=== PATIENT | female | born 1945 | race African-American/Black ===

== ENCOUNTER 2017-02-27 11:57 | Emergency (ER) | payer MEDICARE, MEDICAID ==
[~2017-02-27] VITALS: Ht 157.5 cm; Wt 63.5 kg
[~2017-02-27 11:57] MED LIST: AMITIZA24 MCG ORAL; AVELOX400 MG ORAL; AZITHROMYC100 MG/5 M ORAL; BACTROBAN22 G1 TOPIC; BENTYL10 MG ORAL; BENZONATATE100 MG ORAL; COLACE100 MG ORAL; FLONASE ALLERG9.9 ML NS; GUAIFENESIN-CO118 M1 ORAL; HYDROCHLOROTHIA25 MG ORAL; LACTULOSE20 GM/301 ORAL; LEVAQUIN500 MG ORAL; MAALOX ADVANCE770 ML PO; METRONIDAZOLE500 MG ORAL; MIRALAX17 G2 ORAL; NEXIUM40 MG ORAL; NORVASC5 MG ORAL; OMEPRAZOLE20 M2 ORAL; OMEPRAZOLE20 MG PO; OMEPRAZOLE40 M1 ORAL; PERCOCET 5-3251 EACH PO; PRILOSEC20 MG PO; PRILOSEC40 MG ORAL; PROMETHAZINE-C118 M1 ORAL; PROMETHAZINE-D118 ML ORAL; ROBITUSSIN AC5 ML ORAL; ROBITUSSIN COU118 M4 PO; SUCRALFATE1 GM PO; TESSALON PERLE100 MG ORAL; ZANTAC150 MG ORAL; ZANTAC300 MG PO; ZESTRIL10 M1 ORAL
[2017-02-27 12:23] VITALS: BP 124/68
--- NOTE | 2017-02-27 12:41 | Emergency Room Report ---
History of Present Illness General Chief Complaint: Upper Respiratory Illness Source: Patient (Lise Manuel) Present Illness HPI 71-year-old female presents to the emergency department complaining of persistent dry cough times one week. Patient states she was started on lisinopril just over a week ago and the very next day she had dry cough with runny nose. Patient denies fevers, chills, mucus production. Denies swelling of the lips or tongue, denies rash. Patient denies recent travel or ill contacts. Patient is up-to-date with vaccinations. Patient also reports history of moderate reflux disease , and enlarged heart. Patient denies swelling of the lower extremities. Denies CP, Palpitations, LOC, AMS, dizziness , Changes in Vision, Sensation, paresthesias, or a sudden severe headache. (Lise Manuel) Allergies: Coded Allergies: Broccoli (Verified Allergy, Unknown, 04/05/16) IBUPROFEN (Verified Allergy, Unknown, 12/19/08) LACTOSE (Verified Allergy, Unknown, 12/10/15) Lactose intolerant MILK (Verified Allergy, Unknown, 08/15/11) ONION (Verified Allergy, Unknown, 04/05/16) ORANGE JUICE (Verified Allergy, Unknown, 04/05/16) TOMATO (Verified Allergy, Unknown, 04/05/16) Patient History Past Medical History: see triage record Past Surgical History: none Pertinent Family History: none Now: No Reviewed Nursing Documentation: PMH: Agreed, PSxH: Agreed (Lise Manuel) Nursing Documentation-PMH Past Medical History: No History, Except For Hx Hypertension: Yes Hx Pacemaker: No Hx Asthma: No Hx COPD: No Hx Diabetes: No Hx Cancer: No Hx Gastrointestinal Problems: Yes - gastritis, GERD, hiatal hernia Hx Dialysis: No Hx Neurological Problems: No Hx Cerebrovascular Accident: No Hx Seizures: No (Lise Manuel) Review of Systems All Other Systems: negative except mentioned in HPI (Lise Manuel) Physical Exam Vital Signs Date Time Temp Pulse Resp B/P (MAP) Pulse Ox O2 Delivery O2 Flow Rate FiO2 02/27/17 12:09 97.9 81 16 124/68 100 Room Air Sp02 EP Interpretation: reviewed, normal General Appearance: no apparent distress, alert, GCS 15, non-toxic Head: normocephalic, atraumatic Eyes: bilateral eye normal inspection, bilateral eye PERRL ENT: hearing grossly normal, normal pharynx, no angioedema, normal voice, other - no swelling of the lips or tongue Neck: full range of motion Respiratory: chest non-tender, lungs clear, normal breath sounds, no rhonchi, no respiratory distress, no wheezing, speaking full sentences Cardiovascular #1: regular rate, rhythm, no edema, normal capillary refill Musculoskeletal: back normal, gait/station normal, normal range of motion, non- tender Neurologic: alert, oriented x3, responsive, motor strength/tone normal, sensory intact, speech normal Psychiatric: judgement/insight normal, memory normal, mood/affect normal Skin: normal color, no rash, warm/dry, well hydrated (Lise Manuel P.A.) Medical Decision Making PA Attestation Dr. Gamez is my supervising Physician whom patient management has been discussed with. (Lise Manuel P.A.) Diagnostic Impression: Primary Impression: JOHNATHON-inhibitor cough Additional Impression: History of gastroesophageal reflux (GERD) ER Course 71-year-old female presents to the emergency department complaining of persistent dry cough times one week. Patient states she was started on lisinopril just over a week ago and the very next day she had dry cough with runny nose. Patient denies fevers, chills, mucus production. Denies swelling of the lips or tongue, denies rash. Patient denies recent travel or ill contacts. Patient is up-to-date with vaccinations. Patient also reports history of moderate reflux disease , and enlarged heart. Patient denies swelling of the lower extremities. Denies CP, Palpitations, LOC, AMS, dizziness , Changes in Vision, Sensation, paresthesias, or a sudden severe headache. ---Pt. was switched to ARB yesterday. Ddx considered but are not limited to JOHNATHON-Cough, URI, pneumonia, PE, CHF, strep pharyngitis, meningitis just to name a few Vital signs: Pt. is afebrile, the remaining VS are WNL H&PE are most consistent with Johnathon-cough will do CXR. ORDERS: -CXR: No consolidation, effusion, pneumothorax or acute cardiopulmonary findings per soft read in ED by Dr. Gamez, her interpretation has been scribed by AMAURY Manuel. ED INTERVENTIONS: None required at this time. d/w pt. that her symptoms most likely were caused from Lisinopril. D/w pt. to follow up with here PCP Dr Jaramillo in 3 days. gave ED Return precautions for worsening or new symptoms. DISCHARGE: At this time pt. is stable for d/c to home. Will provide printed patient care instructions, and any necessary prescriptions. Care plan and follow up instructions have been discussed with the patient prior to discharge. (Lise Manuel) ER Course I agree with the X-Ray interpretation as noted by AMAURY. Electronically signed by Sophie Gamez MD (Sophie Gamez M.D.) Last Vital Signs Date Time Temp Pulse Resp B/P (MAP) Pulse Ox O2 Delivery O2 Flow Rate FiO2 02/27/17 12:23 97.9 81 16 124/68 100 Room Air (Lise Manuel) Disposition: HOME, SELF-CARE Condition: Stable Scripts Codeine/Promethazine Hcl* (PROMETHAZINE-CODEINE SYRUP*) 118 Ml Syrup 5 ML ORAL Q6H Y for For Cough, #118 ML 0 Refills Prov: Lise Manuel 02/27/17 Referrals: Silvino Calvillo MD (PCP) Patient Instructions: Cough, Adult Additional Instructions: Take medications as directed. Follow up with a Primary Care Provider in 3-5 days, even if your symptoms have resolved. YOU HAD A NORMAL CXR TODAY --Please review list of primary care clinics, if you do not already have a primary care provider Return sooner to ED if new symptoms occur, or current symptoms become worse. Do not drink alcohol, drive, or operate heavy machinery while taking Cough Syrup as this may cause drowsiness. - Please note that this Emergency Department Report was dictated using [employer] law clerk technology software, occasionally this can lead to erroneous entry secondary to interpretation by the dictation equipment. Lise Manuel Feb 27, 2017 12:41 Sophie Gamez M.D. Mar 03, 2017 06:51
[2017-02-27] MEDS ORDERED: PROMETHAZINE-C118 M1 ORAL (13:36)
[2017-02-27 13:45] VITALS: BP 126/68
[2017-02-27 13:47] VITALS: BP 126/68
--- NOTE | 2017-02-27 14:42 | Diagnostic Imaging Report ---
Indication: COUGH Technique: One view of the chest Comparison: none Findings: Atelectatic changes are seen at both lung bases. The heart is mildly enlarged. Patient's chin obscures a portion of the upper mediastinum. The lungs and pleural spaces are otherwise clear. Impression: Minimal bilateral basilar atelectasis No acute process otherwise
== END 2017-02-27 13:49 | disposition home or self-care (01) ==
LOC: EMR 12:24
DX: R05 Cough (principal); T50.995A Adverse effect of other drugs, medicaments and biological substances, initial encounter; K21.9 Gastro-esophageal reflux disease without esophagitis
CPT/HCPCS: 71010; 99283

== ENCOUNTER 2017-07-23 02:37 | Inpatient (IN) | payer MEDICARE, MEDICAID ==
[~2017-07-23] VITALS: Ht 157.5 cm; Wt 68.0 kg
[2017-07-23] VITALS (8 sets, daily range): BP systolic 112–162; BP diastolic 45–91
[2017-07-23] MEDS ORDERED: Dicyclomine HCl 10mg/5ml oral soln ORAL ONE (03:00)
[2017-07-23] MEDS ORDERED: Mylanta II UD 30ml ORAL ONE (03:00)
[2017-07-23] MEDS ORDERED: Lidocaine 2% Visc 15ml soln ORAL ONE (03:00)
[2017-07-23 04:02] LABS: BASOPHILS % (AUTO) 1.7 % (0.0-2.0); EOSINOPHILS % (AUTO) 2.7 % (0.0-3.0); HEMATOCRIT 46.4 % (37.0-47.0); HEMOGLOBIN 15.1 G/DL (12.0-16.0); LYMPHOCYTES % (AUTO) 24.1 % (20.0-45.0); MEAN CORPUSCULAR VOLUME 83 FL (80-99); MONOCYTES % (AUTO) 8.3 % (1.0-10.0); NEUTROPHILS % (AUTO) 63.3 % (45.0-75.0); PLATELET COUNT 223 K/UL (150-450); RED BLOOD COUNT 5.56 M/UL (4.20-5.40); WHITE BLOOD COUNT 5.3 K/UL (4.8-10.8)
[2017-07-23 04:19] LABS: ALANINE AMINOTRANSFERASE 29 U/L (12-78); ALBUMIN 3.6 G/DL (3.4-5.0); ALBUMIN/GLOBULIN RATIO 0.8 (1.0-2.7); ALKALINE PHOSPHATASE 149 U/L (46-116); ANION GAP 4 mmol/L (5-15); ASPARTATE AMINO TRANSFERASE 69 U/L (15-37); BILIRUBIN,TOTAL 0.9 MG/DL (0.2-1.0); BLOOD UREA NITROGEN 13 mg/dL (7-18); CALCIUM 9.6 MG/DL (8.5-10.1); CARBON DIOXIDE 30 MMOL/L (21-32); CHLORIDE 102 MMOL/L (98-107); CKMB 1.3 NG/ML (0.0-3.6); CREATINE KINASE 311 U/L (26-308); CREATININE 0.7 MG/DL (0.55-1.30); SODIUM 135 MMOL/L (136-145)
[2017-07-23 04:21] LABS: POTASSIUM 6.1 MMOL/L (3.5-5.1)
[2017-07-23] MEDS ORDERED: Morphine Sulfate 4mg/ml Inj IVP ONE (04:45)
--- NOTE | 2017-07-23 05:16 | Emergency Room Report ---
History of Present Illness General Chief Complaint: Chest Pain Source: Patient Present Illness HPI Patient presents with complaints of chest pain Midsternal Patient had component of epigastric discomfort with reflux into the chest as well Patient reports that her antacid medication has been changed to a generic type and she has had problems since then This pain actually started about 2 hours prior to arrival Denies any vomiting or diarrhea pain as heaviness Denies any change with position or exertion Allergies: Coded Allergies: Broccoli (Verified Allergy, Unknown, 04/05/16) IBUPROFEN (Verified Allergy, Unknown, 12/19/08) LACTOSE (Verified Allergy, Unknown, 12/10/15) Lactose intolerant MILK (Verified Allergy, Unknown, 08/15/11) ONION (Verified Allergy, Unknown, 04/05/16) ORANGE JUICE (Verified Allergy, Unknown, 04/05/16) TOMATO (Verified Allergy, Unknown, 04/05/16) Patient History Past Medical History: see triage record Pertinent Family History: none Reviewed Nursing Documentation: PMH: Agreed, PSxH: Agreed Nursing Documentation-PMH Hx Hypertension: Yes Hx Pacemaker: No Hx Asthma: No Hx COPD: No Hx Diabetes: No Hx Cancer: No Hx Gastrointestinal Problems: Yes - gastritis, GERD, hiatal hernia Hx Dialysis: No Hx Neurological Problems: No Hx Cerebrovascular Accident: No Hx Seizures: No Review of Systems All Other Systems: negative except mentioned in HPI Physical Exam Vital Signs Date Time Temp Pulse Resp B/P (MAP) Pulse Ox O2 Delivery O2 Flow Rate FiO2 07/23/17 02:39 97.5 98 16 118/79 95 Room Air 97.5 Sp02 EP Interpretation: reviewed, normal General Appearance: well appearing, no apparent distress Head: normocephalic, atraumatic Eyes: bilateral eye PERRL, bilateral eye EOMI ENT: hearing grossly normal, normal pharynx, TMs + canals normal, uvula midline Neck: full range of motion, supple, no meningismus, no bony tend Respiratory: lungs clear, normal breath sounds, no rhonchi, no respiratory distress, no retraction, no accessory muscle use Cardiovascular #1: normal peripheral pulses, regular rate, rhythm, no edema, no gallop, no JVD, no murmur Gastrointestinal: normal bowel sounds, non tender, soft, no mass, no organomegaly, non-distended, no guarding, no hernia, no pulsatile mass, no rebound Genitourinary: no CVA tenderness Musculoskeletal: normal inspection Neurologic: oriented x3, responsive, high lift mule operator III-XII nml as tested, motor strength/ tone normal, sensory intact Psychiatric: mood/affect normal Skin: normal color, no rash, warm/dry, palpation normal Lymphatic: normal inspection, no adenopathy Medical Decision Making Diagnostic Impression: Primary Impression: ACS (acute coronary syndrome) Additional Impression: GERD (gastroesophageal reflux disease) ER Course Patient is a fairly complex patient with multiple differential to consideration including but not limited to cardiac cardiopulmonary and vascular emergencies Patient's EKG and initial blood tests are appropriate Patient required further intervention for her pain At this time will be admitted for further care Labs Test 07/23/17 03:35 White Blood Count 5.3 K/UL (4.8-10.8) Red Blood Count 5.56 M/UL (4.20-5.40) Hemoglobin 15.1 G/DL (12.0-16.0) Hematocrit 46.4 % (37.0-47.0) Mean Corpuscular Volume 83 FL (80-99) Mean Corpuscular Hemoglobin 27.2 PG (27.0-31.0) Mean Corpuscular Hemoglobin Concent 32.6 G/DL (32.0-36.0) Red Cell Distribution Width 16.0 % (11.6-14.8) Platelet Count 223 K/UL (150-450) Mean Platelet Volume 9.9 FL (6.5-10.1) Neutrophils (%) (Auto) 63.3 % (45.0-75.0) Lymphocytes (%) (Auto) 24.1 % (20.0-45.0) Monocytes (%) (Auto) 8.3 % (1.0-10.0) Eosinophils (%) (Auto) 2.7 % (0.0-3.0) Basophils (%) (Auto) 1.7 % (0.0-2.0) Sodium Level 135 MMOL/L (136-145) Potassium Level 6.1 MMOL/L (3.5-5.1) Chloride Level 102 MMOL/L (98-107) Carbon Dioxide Level 30 MMOL/L (21-32) Anion Gap 4 mmol/L (5-15) Blood Urea Nitrogen 13 mg/dL (7-18) Creatinine 0.7 MG/DL (0.55-1.30) Estimat Glomerular Filtration Rate mL/min (>60) Glucose Level 100 MG/DL (74-106) Calcium Level 9.6 MG/DL (8.5-10.1) Total Bilirubin 0.9 MG/DL (0.2-1.0) Aspartate Amino Transf (AST/SGOT) 69 U/L (15-37) Alanine Aminotransferase (ALT/SGPT) 29 U/L (12-78) Alkaline Phosphatase 149 U/L (46-116) Total Creatine Kinase 311 U/L (26-308) Creatine Kinase MB 1.3 NG/ML (0.0-3.6) Creatine Kinase MB Relative Index 0.4 Troponin I 0.000 ng/mL (0.000-0.056) Pro-B-Type Natriuretic Peptide 31 pg/mL (0-125) Total Protein 8.4 G/DL (6.4-8.2) Albumin 3.6 G/DL (3.4-5.0) Globulin 4.8 g/dL Albumin/Globulin Ratio 0.8 (1.0-2.7) Lipase 110 U/L (73-393) EKG Diagnostic Results Rate: normal Rhythm: NSR ST Segments: no acute changes Rhythm Strip Diag. Results EP Interpretation: yes Rate: 77 Rhythm: NSR, no PVC's, no ectopy Chest X-Ray Diagnostic Results Chest X-Ray Diagnostic Results : Chest X-Ray Ordered: Yes # of Views/Limited/Complete: 1 View Indication: Chest Pain EP Interpretation: Yes Interpretation: no consolidation, no effusion, no pneumothorax Impression: No acute disease Electronically Signed by: Bronwyn Justice DO Last Vital Signs Date Time Temp Pulse Resp B/P (MAP) Pulse Ox O2 Delivery O2 Flow Rate FiO2 07/23/17 05:00 97.6 94 15 141/91 99 Room Air Status: improved Disposition: ADMITTED INPATIENT Condition: Serious Referrals: Silvino Calvillo MD (PCP) BRONWYN JUSTICE D.O. Jul 23, 2017 05:15
--- NOTE | 2017-07-23 08:13 | Consultation ---
History of Present Illness General Date patient seen: Jul 23, 2017 Chief Complaint: Chest Pain Reason for Consultation: chest pain Present Illness HPI 72 year old female with hx of HTN, CAD presented to [place] ER with complaints of chest pain Patient had component of epigastric discomfort with reflux into the chest as well This pain actually started about 2 hours prior to arrival. Denies any vomiting or diarrhea pain as heaviness Denies any change with position or exertion. she is admitted to telemetry to rule out ACS. Allergies: Coded Allergies: Broccoli (Verified Allergy, Unknown, 04/05/16) IBUPROFEN (Verified Allergy, Unknown, 12/19/08) LACTOSE (Verified Allergy, Unknown, 12/10/15) Lactose intolerant MILK (Verified Allergy, Unknown, 08/15/11) ONION (Verified Allergy, Unknown, 04/05/16) ORANGE JUICE (Verified Allergy, Unknown, 04/05/16) TOMATO (Verified Allergy, Unknown, 04/05/16) Medication History Scheduled Esomeprazole Magnesium (Nexium), 40 MG ORAL DAILY, (Reported) Fluticasone Propionate (Flonase Allergy Relief), 9.9 ML NS DAILY Guaifenesin/Dextromethorphan (Robitussin Cough-Chest Dm Liq), 118 ML PO Q6HR Scheduled PRN Codeine/Promethazine Hcl* (Promethazine-Codeine Syrup*), 5 ML ORAL Q4H PRN for For Cough Codeine/Promethazine Hcl* (Promethazine-Codeine Syrup*), 5 ML ORAL Q6H PRN for For Cough Guaifenesin/Codeine Phos* (Robitussin Ac*), 1 TSP ORAL Q6H PRN for For Cough Patient History Healthcare decision maker Resuscitation status Full Code Advanced Directive on File Past Medical/Surgical History Past Medical/Surgical History: (1) GERD (gastroesophageal reflux disease) (2) Gastritis (3) GERD (gastroesophageal reflux disease) Review of Systems Cardiovascular: Reports: chest pain Gastrointestinal: Reports: abdominal pain, nausea, vomiting Physical Exam General Appearance: WD/WN, no apparent distress Lines, tubes and drains: peripheral HEENT: normocephalic, atraumatic Neck: non-tender, normal alignment Respiratory/Chest: chest wall non-tender, lungs clear Breasts: no masses Cardiovascular/Chest: normal peripheral pulses Abdomen: normal bowel sounds, non tender, soft Genitourinary/Rectal: normal genital exam, normal rectal exam Extremities: normal range of motion, normal inspection Skin Exam: normal pigmentation Neurologic: coater II-XII grossly normal Last 24 Hour Vital Signs Date Time Temp Pulse Resp B/P (MAP) Pulse Ox O2 Delivery O2 Flow Rate FiO2 07/23/17 05:00 97.6 94 15 141/91 99 Room Air 07/23/17 05:00 97.7 76 18 138/78 97 Room Air 97.7 07/23/17 04:45 97.6 94 15 141/91 99 Room Air 97.6 07/23/17 04:06 89 14 144/79 100 Room Air 07/23/17 03:44 97.5 98 17 162/83 100 Room Air 97.5 07/23/17 03:44 98 17 Room Air 07/23/17 02:39 97.5 98 16 118/79 95 Room Air 97.5 Laboratory Tests Test 07/23/17 03:35 White Blood Count 5.3 K/UL (4.8-10.8) Red Blood Count 5.56 M/UL (4.20-5.40) H Hemoglobin 15.1 G/DL (12.0-16.0) Hematocrit 46.4 % (37.0-47.0) Mean Corpuscular Volume 83 FL (80-99) Mean Corpuscular Hemoglobin 27.2 PG (27.0-31.0) Mean Corpuscular Hemoglobin Concent 32.6 G/DL (32.0-36.0) Red Cell Distribution Width 16.0 % (11.6-14.8) H Platelet Count 223 K/UL (150-450) Mean Platelet Volume 9.9 FL (6.5-10.1) Neutrophils (%) (Auto) 63.3 % (45.0-75.0) Lymphocytes (%) (Auto) 24.1 % (20.0-45.0) Monocytes (%) (Auto) 8.3 % (1.0-10.0) Eosinophils (%) (Auto) 2.7 % (0.0-3.0) Basophils (%) (Auto) 1.7 % (0.0-2.0) Sodium Level 135 MMOL/L (136-145) L Potassium Level 6.1 MMOL/L (3.5-5.1) *H Chloride Level 102 MMOL/L (98-107) Carbon Dioxide Level 30 MMOL/L (21-32) Anion Gap 4 mmol/L (5-15) L Blood Urea Nitrogen 13 mg/dL (7-18) Creatinine 0.7 MG/DL (0.55-1.30) Estimat Glomerular Filtration Rate mL/min (>60) Glucose Level 100 MG/DL (74-106) Calcium Level 9.6 MG/DL (8.5-10.1) Total Bilirubin 0.9 MG/DL (0.2-1.0) Aspartate Amino Transf (AST/SGOT) 69 U/L (15-37) H Alanine Aminotransferase (ALT/SGPT) 29 U/L (12-78) Alkaline Phosphatase 149 U/L (46-116) H Total Creatine Kinase 311 U/L (26-308) H Creatine Kinase MB 1.3 NG/ML (0.0-3.6) Creatine Kinase MB Relative Index 0.4 Troponin I 0.000 ng/mL (0.000-0.056) Pro-B-Type Natriuretic Peptide 31 pg/mL (0-125) Total Protein 8.4 G/DL (6.4-8.2) H Albumin 3.6 G/DL (3.4-5.0) Globulin 4.8 g/dL Albumin/Globulin Ratio 0.8 (1.0-2.7) L Lipase 110 U/L (73-393) Height (Feet): 5 Height (Inches): 2.00 Weight (Pounds): 150 Assessment/Plan Problem List: (1) ACS (acute coronary syndrome) ICD Codes: I20.0 - Unstable angina SNOMED: 757073168 (2) Abdominal pain ICD Codes: R10.9 - Abdominal pain SNOMED: 86055869 Assessment/Plan low probability for PE, serial ekg, torponin, echo cardio to see GI evaluation trial of carafate dvt prophylaxis. LEILANI NICOLE Jul 23, 2017 08:13
[2017-07-23] MEDS ORDERED: Miralax 17gm pkt ORAL ONE (08:15)
[2017-07-23] MEDS ORDERED: Morphine Sulfate 4mg/ml Inj IVP PRN (08:15)
[2017-07-23] MEDS ORDERED: Norco 5mg/325mg tab ORAL PRN (08:15)
[2017-07-23 08:20] LABS: BASOPHILS % (AUTO) 1.1 % (0.0-2.0); EOSINOPHILS % (AUTO) 1.5 % (0.0-3.0); HEMATOCRIT 44.7 % (37.0-47.0); HEMOGLOBIN 14.5 G/DL (12.0-16.0); LYMPHOCYTES % (AUTO) 24.7 % (20.0-45.0); MEAN CORPUSCULAR VOLUME 84 FL (80-99); MONOCYTES % (AUTO) 9.7 % (1.0-10.0); PLATELET COUNT 234 K/UL (150-450); RED BLOOD COUNT 5.34 M/UL (4.20-5.40); RED CELL DISTRIBUTION WIDTH 16.3 % (11.6-14.8)
[2017-07-23 08:31] LABS: ANION GAP 5 mmol/L (5-15); BLOOD UREA NITROGEN 13 mg/dL (7-18); CALCIUM 9.8 MG/DL (8.5-10.1); CARBON DIOXIDE 29 MMOL/L (21-32); CHLORIDE 103 MMOL/L (98-107); CREATININE 0.7 MG/DL (0.55-1.30); POTASSIUM 4.1 MMOL/L (3.5-5.1); SODIUM 137 MMOL/L (136-145)
[2017-07-23 08:51] LABS: ALANINE AMINOTRANSFERASE 23 U/L (12-78); ALBUMIN 3.8 G/DL (3.4-5.0); ALKALINE PHOSPHATASE 146 U/L (46-116); ASPARTATE AMINO TRANSFERASE 18 U/L (15-37); BILIRUBIN,TOTAL 0.6 MG/DL (0.2-1.0)
[2017-07-23] MEDS: Pantoprazole Inj IVP SCH ×2 (08:53→21:51)
[2017-07-23] MEDS: Sucralfate 1gm tab ORAL SCH ×4 (08:53→21:51)
--- NOTE | 2017-07-23 09:58 | Diagnostic Imaging Report ---
Indication: Chest pain Comparison: 02/27/2017 A single view chest radiograph was obtained. Findings: No definite infiltrate or pulmonary vascular congestion identified. The heart is enlarged. The aorta is mildly enlarged consistent with atherosclerotic vascular disease. The bones are osteopenic. Impression: No acute disease
--- NOTE | 2017-07-23 10:49 | GI Initial Consult Note ---
Juli Oliveros N.P. 07/23/17 1049: History of Present Illness General Date patient seen: Jul 23, 2017 Time patient seen: 10:41 Reason for Hospitalization: Chest Pain Referring physician: DESTINEY PEDRAZA Reason for Consultation: GERD Present Illness HPI Patient presents with complaints of chest pain Midsternal Patient had component of epigastric discomfort with reflux into the chest as well Patient reports that her antacid medication has been changed to a generic type and she has had problems since then This pain actually started about 2 hours prior to arrival Denies any vomiting or diarrhea pain as heaviness Denies any change with position or exertion GI consulted for epigastric pain. Pt seen, awake A&Ox4 NAD with no active s/sx of N/V/D. C/o of lower abdominal pain that radiates to her epigastric region. History of EGD/colonoscopy x 5 years ago, states she has gastritis, hiatal hernia and GERD. Per patient, she needs Nexium Brand name to relieve her GERD symptoms. She was prescribed the generic of Nexium, Esomeprazole, but denies any relief. State she's tried other medications with minimal relief as well. Presents today with elevated alkaline phosphatase. Home Meds Reported Medications Pantoprazole* (PANTOPRAZOLE*) 40 Mg Tablet., 40 MG ORAL DAILY, TAB 07/29/17 Discontinued Reported Medications Esomeprazole Magnesium (NEXIUM) 40 Mg Capsule.dr, 40 MG ORAL DAILY, CAP 05/28/14 Discontinued Scripts Codeine/Promethazine Hcl* (PROMETHAZINE-CODEINE SYRUP*) 118 Ml Syrup, 5 ML ORAL Q6H Y for For Cough, #118 ML 0 Refills Prov:Lise Manuel P.A. 02/27/17 Codeine/Promethazine Hcl* (PROMETHAZINE-CODEINE SYRUP*) 118 Ml Syrup, 5 ML ORAL Q4H Y for For Cough, #118 ML 0 Refills Prov:TERZIANDAVID P.A. 03/30/16 Fluticasone Propionate (Flonase Allergy Relief) 9.9 Ml [place].susp, 9.9 ML NS DAILY, #10 ML Prov:TERZIAN,DAVID P.A. 03/30/16 Guaifenesin/Dextromethorphan (Robitussin Cough-Chest Dm Liq) 118 Ml Liquid, 118 ML PO Q6HR, #118 ML Prov:Lise Manuel 03/16/16 Guaifenesin/Codeine Phos* (ROBITUSSIN AC*) 118 Ml Liquid, 1 TSP ORAL Q6H Y for For Cough, #118 ML 0 Refills Prov:Sebas Alcocer 03/16/16 Med list reviewed/reconciled: Yes Allergies: Coded Allergies: Broccoli (Verified Allergy, Unknown, 04/05/16) IBUPROFEN (Verified Allergy, Unknown, 12/19/08) LACTOSE (Verified Allergy, Unknown, 12/10/15) Lactose intolerant MILK (Verified Allergy, Unknown, 08/15/11) ONION (Verified Allergy, Unknown, 04/05/16) ORANGE JUICE (Verified Allergy, Unknown, 04/05/16) TOMATO (Verified Allergy, Unknown, 04/05/16) Patient History History Provided By: Patient, Medical Record PMH Narrative Past Medical History: see triage record Pertinent Family History: none Reviewed Nursing Documentation: PMH: Agreed, PSxH: Agreed Nursing Documentation-PMH Hx Hypertension: Yes Hx Pacemaker: No Hx Asthma: No Hx COPD: No Hx Diabetes: No Hx Cancer: No Hx Gastrointestinal Problems: Yes - gastritis, GERD, hiatal hernia Hx Dialysis: No Hx Neurological Problems: No Hx Cerebrovascular Accident: No Hx Seizures: No Social History: Denies: smoking, alcohol use, drug use, other Review of Systems All Other Systems: negative except mentioned in HPI Physical Exam Vital Signs Date Time Temp Pulse Resp B/P (MAP) Pulse Ox O2 Delivery O2 Flow Rate FiO2 07/23/17 02:39 97.5 98 16 118/79 95 Room Air 97.5 Sp02 EP Interpretation: reviewed, normal Labs Laboratory Tests Test 07/23/17 03:35 07/23/17 06:34 White Blood Count 5.3 K/UL (4.8-10.8) 5.0 K/UL (4.8-10.8) Red Blood Count 5.56 M/UL (4.20-5.40) H 5.34 M/UL (4.20-5.40) Hemoglobin 15.1 G/DL (12.0-16.0) 14.5 G/DL (12.0-16.0) Hematocrit 46.4 % (37.0-47.0) 44.7 % (37.0-47.0) Mean Corpuscular Volume 83 FL (80-99) 84 FL (80-99) Mean Corpuscular Hemoglobin 27.2 PG (27.0-31.0) 27.1 PG (27.0-31.0) Mean Corpuscular Hemoglobin Concent 32.6 G/DL (32.0-36.0) 32.4 G/DL (32.0-36.0) Red Cell Distribution Width 16.0 % (11.6-14.8) H 16.3 % (11.6-14.8) H Platelet Count 223 K/UL (150-450) 234 K/UL (150-450) Mean Platelet Volume 9.9 FL (6.5-10.1) 8.9 FL (6.5-10.1) Neutrophils (%) (Auto) 63.3 % (45.0-75.0) 63.0 % (45.0-75.0) Lymphocytes (%) (Auto) 24.1 % (20.0-45.0) 24.7 % (20.0-45.0) Monocytes (%) (Auto) 8.3 % (1.0-10.0) 9.7 % (1.0-10.0) Eosinophils (%) (Auto) 2.7 % (0.0-3.0) 1.5 % (0.0-3.0) Basophils (%) (Auto) 1.7 % (0.0-2.0) 1.1 % (0.0-2.0) Sodium Level 135 MMOL/L (136-145) L 137 MMOL/L (136-145) Potassium Level 6.1 MMOL/L (3.5-5.1) *H 4.1 MMOL/L (3.5-5.1) Chloride Level 102 MMOL/L (98-107) 103 MMOL/L (98-107) Carbon Dioxide Level 30 MMOL/L (21-32) 29 MMOL/L (21-32) Anion Gap 4 mmol/L (5-15) L 5 mmol/L (5-15) Blood Urea Nitrogen 13 mg/dL (7-18) 13 mg/dL (7-18) Creatinine 0.7 MG/DL (0.55-1.30) 0.7 MG/DL (0.55-1.30) Estimat Glomerular Filtration Rate mL/min (>60) mL/min (>60) Glucose Level 100 MG/DL (74-106) 102 MG/DL (74-106) Calcium Level 9.6 MG/DL (8.5-10.1) 9.8 MG/DL (8.5-10.1) Total Bilirubin 0.9 MG/DL (0.2-1.0) 0.6 MG/DL (0.2-1.0) Aspartate Amino Transf (AST/SGOT) 69 U/L (15-37) H 18 U/L (15-37) Alanine Aminotransferase (ALT/SGPT) 29 U/L (12-78) 23 U/L (12-78) Alkaline Phosphatase 149 U/L (46-116) H 146 U/L (46-116) H Total Creatine Kinase 311 U/L (26-308) H Creatine Kinase MB 1.3 NG/ML (0.0-3.6) Creatine Kinase MB Relative Index 0.4 Troponin I 0.000 ng/mL (0.000-0.056) 0.000 ng/mL (0.000-0.056) Pro-B-Type Natriuretic Peptide 31 pg/mL (0-125) Total Protein 8.4 G/DL (6.4-8.2) H 7.6 G/DL (6.4-8.2) Albumin 3.6 G/DL (3.4-5.0) 3.8 G/DL (3.4-5.0) Globulin 4.8 g/dL 3.8 g/dL Albumin/Globulin Ratio 0.8 (1.0-2.7) L 1.0 (1.0-2.7) Lipase 110 U/L (73-393) General Appearance: well appearing, no apparent distress, alert Head: normocephalic EENT: PERRL/EOMI, normal ENT inspection Neck: supple Respiratory: normal breath sounds, no respiratory distress Cardiovascular: normal rate Gastrointestinal: normal inspection, non tender, soft, normal bowel sounds, non -distended Rectal: deferred Genitourinary: no CVA tenderness Musculoskeletal: normal inspection, back normal Neurologic: normal inspection, alert, oriented x3, responsive Psychiatric: normal inspection, judgement/insight normal, memory normal Skin: normal inspection, normal color, no rash, warm/dry, palpation normal, well hydrated Lymphatic: normal inspection, no adenopathy Current Medications Current Medications Medications (Trade) Dose Ordered Sig/Radha Route PRN Reason Start Time Stop Time Status Last Admin Dose Admin Acetaminophen/ Hydrocodone Bitart ([place] 5/325) 1 tab Q6H PRN ORAL Moderate Pain (Pain Scale 4-6) 07/23/17 08:15 07/30/17 08:14 Morphine Sulfate (Morphine Sulfate) 4 mg Q4H PRN IVP Severe Pain (Pain Scale 7-10) 07/23/17 08:15 07/30/17 08:14 07/23/17 08:54 Ondansetron HCl (Zofran) 4 mg Q4HR PRN IVP Nausea & Vomiting 07/23/17 08:15 08/22/17 08:14 Pantoprazole (Protonix) 40 mg EVERY 12 HOURS IVP 07/23/17 09:00 08/22/17 08:59 07/23/17 08:53 Sucralfate (Carafate) 1 gm FOUR TIMES A DAY ORAL 07/23/17 09:00 08/22/17 08:59 07/23/17 08:53 GI: Plan Problems: (1) GERD (gastroesophageal reflux disease) (2) Gastritis (3) Hiatal hernia Plan refused EGD at this time symptomatic treatment at this time FLD, advance as tolerated ppi BID carafate monitor LFTs fu labs outpatient GI procedures Discussed with Dr. Zheng. Thank you for this patient referral, we will follow. NATTY ZHENG 07/29/17 3235: History of Present Illness General Reason for Hospitalization: Chest Pain Present Illness Home Meds Reported Medications Pantoprazole* (PANTOPRAZOLE*) 40 Mg Tablet., 40 MG ORAL DAILY, TAB 07/29/17 Discontinued Reported Medications Esomeprazole Magnesium (NEXIUM) 40 Mg Capsule., 40 MG ORAL DAILY, CAP 05/28/14 Discontinued Scripts Codeine/Promethazine Hcl* (PROMETHAZINE-CODEINE SYRUP*) 118 Ml Syrup, 5 ML ORAL Q6H Y for For Cough, #118 ML 0 Refills Prov:Lise Manuel 02/27/17 Codeine/Promethazine Hcl* (PROMETHAZINE-CODEINE SYRUP*) 118 Ml Syrup, 5 ML ORAL Q4H Y for For Cough, #118 ML 0 Refills Prov:TERZIAN,DAVID P.A. 03/30/16 Fluticasone Propionate (Flonase Allergy Relief) 9.9 Ml [place].susp, 9.9 ML NS DAILY, #10 ML Prov:TERZIAN,DAVID P.A. 03/30/16 Guaifenesin/Dextromethorphan (Robitussin Cough-Chest Dm Liq) 118 Ml Liquid, 118 ML PO Q6HR, #118 ML Prov:ManuelLise P.A. 03/16/16 Guaifenesin/Codeine Phos* (ROBITUSSIN AC*) 118 Ml Liquid, 1 TSP ORAL Q6H Y for For Cough, #118 ML 0 Refills Prov:Sebas Alccoer 03/16/16 Allergies: Coded Allergies: Broccoli (Verified Allergy, Unknown, 04/05/16) IBUPROFEN (Verified Allergy, Unknown, 12/19/08) LACTOSE (Verified Allergy, Unknown, 12/10/15) Lactose intolerant MILK (Verified Allergy, Unknown, 08/15/11) ONION (Verified Allergy, Unknown, 04/05/16) ORANGE JUICE (Verified Allergy, Unknown, 04/05/16) TOMATO (Verified Allergy, Unknown, 04/05/16) GI: Plan Plan The patient was seen and examined at bedside and all new and available data was reviewed in the patients chart. I agree with the above findings, impression and plan. (Patient seen earlier today. Signature stamp does not reflect patient encounter time.). - MD Arlin Rodriguez,[facility] Vinayak N.P. Jul 23, 2017 10:49 NATTY ZHENG Jul 29, 2017 13:35
--- NOTE | 2017-07-23 17:15 | Consultation ---
DATE OF CONSULTATION: 07/23/2017 CARDIOLOGY CONSULTATION CONSULTING PHYSICIAN: Gianluca Del Real M.D. REFERRING PHYSICIAN: Silvino Calvillo M.D. REASON FOR CONSULTATION: Management of chest pain. HISTORY OF PRESENT ILLNESS: The patient is a very unfortunate 72-year-old, black [place]ian who presented to the hospital mainly with epigastric pain with radiation to the chest cavity. She describes the pain as reflux into the chest. She states that ever since her antacid medication was changed to a generic type, she has had problem with her stomach. The pain started about two hours prior to her arrival to this facility. It was not associated with any shortness of breath, nausea, vomiting, or diaphoresis. Initial blood pressure was 118/79 mmHg and heart rate was 98. A 12-lead electrocardiogram in the emergency department revealed sinus rhythm with no ST and T-wave abnormalities. Her first troponin I level was also within normal limits. She was admitted to telemetry. I was asked by Dr. Ling on behalf of Dr. Calvillo to see this patient in Cardiology consultation. PAST MEDICAL HISTORY: 1. Hypertension. 2. History of gastroesophageal reflux disease. 3. History of hiatal hernia. 4. History of gastritis. 5. History of small bowel obstruction in the past. 6. History of obesity. 7. 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 8. History of low back pain. ALLERGIES: Milk, ibuprofen, broccoli, lactose, onion, orange, and tomato. MEDICATIONS: In the outpatient setting includes codeine and promethazine 5 mL q.4 h. p.r.n. for cough, Nexium 40 mg daily, Flonase 9.9 mL nasal spray daily, Robitussin one teaspoon oral q.6 h. p.r.n. cough and guaifenesin, and dextromethorphan 118 mL p.o. q.6 h. SOCIAL HISTORY: Lives at home. Denies any tobacco, alcohol, or illicit drug use. FAMILY HISTORY: Mother had diabetes and relatives have also diabetes mellitus. No premature coronary artery disease in the first-degree relatives. REVIEW OF SYSTEMS: HEENT: Denies any headache, diplopia, or blurred vision. CONSTITUTIONAL: Denies any fever, chills, night sweats, or weight loss. CARDIOVASCULAR: Chest pain as mentioned above, mainly burning type of pain in the midsternal, radiating from the stomach. No associated shortness of breath, PND, orthopnea, or leg swelling. PULMONARY: Denies any cough, hemoptysis, or wheezing. GASTROINTESTINAL: Some pain in the epigastric area with reflux. Denies any diarrhea, constipation, or GI bleed. GENITOURINARY: Denies any hematuria, dysuria, or incontinence. NEUROLOGY: Denies any motor dysfunction, sensory deficit, or altered speech. PHYSICAL EXAMINATION: GENERAL: The patient is a very pleasant, 72-year-old female, in no apparent respiratory distress. VITAL SIGNS: Blood pressure at time of arrival to the hospital was 118/79, respirations of 16, pulse of 98, O2 saturation of 95% on room air, and temperature 97.5 degrees Fahrenheit. HEENT: Atraumatic and normocephalic. Anicteric. Pupils are equal, round, and reactive to light and accommodation. Extraocular muscles intact. NECK: JVP less than 5 cm. No carotid bruit. Carotid upstrokes 2+ bilaterally. CARDIOVASCULAR: Normal S1 and S2. Regular rate and rhythm. No murmurs, gallops, or rubs. PMI is at fourth intercostal space at the midclavicular line. LUNGS: Clear to auscultation bilaterally. ABDOMEN: Some epigastric tenderness, otherwise, soft. No rebound. Positive bowel sounds. EXTREMITIES: No evidence of edema, clubbing, or cyanosis. LABORATORY AND DIAGNOSTIC DATA: WBC is 5.3, hemoglobin of 15.1, hematocrit of 46.4, and platelet count 223. Sodium is 135, potassium 6.1, chloride 102, bicarbonate 30, BUN of 13, creatinine 0.7, glucose 100, calcium 9.6. CK-MB was 1.3 and troponin I is 0.0. ProBNP was 31. Chest x-ray, no acute cardiopulmonary disease according to the report. ASSESSMENT AND PLAN: The patient is a very unfortunate 72-year-old female, seen in Cardiology consultation for evaluation of chest pain at the request of Dr. Ling on behalf of Dr. Calvillo. 1. Most likely noncardiac chest pain. This pain is mainly in the epigastric pain and possibly due to her usual gastritis. The quality and the intensity is not typical for unstable angina. At this time, no further cardiac workup is required. 2. History of hypertension. Blood pressure seemingly is within normal limits, on no blood pressure medication. The patient does not have any outside medication and does not use any medication in the outpatient setting. Apparently, this is diet controlled. 3. History of hiatal hernia. 4. History of gastroesophageal reflux disease. I would like to thank Dr. Ling for the courtesy of this consultation. Gianluca Del Real M.D. DR: TULIO JOB#: [id number] CC:
--- NOTE | 2017-07-23 17:30 | History and Physical Report ---
DATE OF ADMISSION: 07/23/2017 CHIEF COMPLAINT: The patient is a 72-year-old female who presents with chief complaint of chest pain. HISTORY OF PRESENT ILLNESS: It began approximately one week ago. The patient states she started vomiting while on the city bus. The patient has been drinking . The patient states yesterday she began to experience lower abdominal pain. The patient had more nausea and vomiting. The patient also felt dizzy. The patient states the pain began to radiate to her chest. The patient presented to [facility] [place] emergency room. The patient was admitted for chest pain to rule out acute coronary syndrome. PAST MEDICAL HISTORY: Significant for 1. Gastritis. 2. Paget's disease of left femur. 3. Osteoarthritis of the lumbar spine. 4. History of gastritis. PAST SURGICAL HISTORY: Significant for total abdominal hysterectomy. CURRENT MEDICATIONS: 1. Esomeprazole 40 mg p.o. daily. 2. Flonase nasal spray one spray twice daily. ALLERGIES: 1. Ibuprofen. 2. Milk. 3. Lactose. SOCIAL HISTORY: The patient is and lives alone. The patient denies tobacco or alcohol use. REVIEW OF SYSTEMS: CONSTITUTIONAL: The patient denies weight loss or weight gain. The patient denies fevers or chills. HEENT: The patient denies ear or throat pain. The patient denies headache. CARDIOVASCULAR: The patient complains of chest pain as above. The patient denies palpitations. CHEST: The patient denies wheeze or shortness of breath. ABDOMEN: The patient complains of bilateral lower quadrant pain as above. The patient denies diarrhea. The patient denies constipation. The patient complains of nausea and vomiting as above. NEUROMUSCULAR: The patient denies seizures or generalized weakness. GENITOURINARY: The patient denies dysuria or increased frequency of urination. PHYSICAL EXAMINATION: GENERAL: The patient is well-developed and well-nourished female, in no apparent distress. VITAL SIGNS: Temperature 97.6 degrees, respirations 16, pulse 94, and blood pressure 141/91. HEENT: Eyes, pupils are equal and responsive to light and accommodation. Extraocular movements are intact. NECK: Supple without lymphadenopathy. CHEST: Lungs are clear to auscultation bilaterally without wheezes or rales. CARDIOVASCULAR: Regular rhythm and rate. S1 and S2 are normal without murmurs, rubs, or gallops. ABDOMEN: Soft, nontender, and nondistended. Positive bowel sounds. No evidence of hepatosplenomegaly. Currently, no rebound or guarding noted. EXTREMITIES: Negative for clubbing, cyanosis, or edema. RECTAL/GENITAL: Refused. NEUROLOGIC: Cranial nerves II through XII are grossly intact without focal deficits. Motor strength is 5/5 bilaterally. Deep tendon reflexes are 2+ plantar. LABORATORY AND DIAGNOSTIC DATA: WBC 5.2, hemoglobin 15.1, hematocrit 46.4, and platelets 223,000. Sodium 135, potassium elevated at 6.1, chloride 102, CO2, 30, BUN 13, creatinine 0.7 and glucose 100. Liver function tests mildly elevated with alkaline phosphatase of 149 and AST of 69. Troponin was zero. ASSESSMENT: This is a 72-year-old female 1. Chest pain. 2. Nausea with vomiting. 3. Gastritis. 4. Paget's disease of left femur. 5. Osteoarthritis lumbar spine. TREATMENT: 1. Chest pain. A Cardiology consultation has been obtained with Dr. Winters. Initial troponin level was negative. We will follow recommendations of Cardiology. Chest pain may be secondary to gastritis. 2. Nausea with vomiting. Gastroenterology consultation has been obtained with Dr. Patrick Zheng. 3. Gastritis. The patient states esomeprazole is not working. The patient is requesting brand name Nexium. The patient may require endoscopy. We will follow recommendations of Gastroenterology. 4. Paget's disease of left femur. 5. Osteoarthritis of lumbar spine. Angus Brooks M.D. DR: ALYSSA JOB#: [id number] CC:
[2017-07-24] VITALS: BP 105/53
[2017-07-24 04:00] VITALS: BP 115/59
[2017-07-24 08:00] VITALS: BP 125/44
[2017-07-24] MEDS: Sucralfate 1gm tab ORAL SCH ×2 (09:22→13:21)
[2017-07-24] MEDS: Pantoprazole Inj IVP SCH (09:22)
--- NOTE | 2017-07-24 11:16 | GI Progress Note ---
Assessment/Plan Problems: (1) Gastritis (2) Abdominal pain ICD Codes: R10.9 - Abdominal pain SNOMED: 78161295 (3) Constipation ICD Codes: K59.00 - Constipation SNOMED: 45947358 (4) GERD (gastroesophageal reflux disease) ICD Codes: K21.9 - Gastro-esophageal reflux disease without esophagitis SNOMED: 510386623 (5) Hiatal hernia ICD Codes: K44.9 - Hiatal hernia SNOMED: 14221417 Status: stable Status Narrative Discussed with Dr. Zheng. Assessment/Plan refused EGD at this time dc planning symptomatic treatment at this time adv to regular diet today ppi BID, change to daily carafate monitor LFTs fu labs outpatient GI procedures Subjective Subjective feels better wants nexium brand name ready to go home Objective Last 24 Hour Vital Signs Date Time Temp Pulse Resp B/P (MAP) Pulse Ox O2 Delivery O2 Flow Rate FiO2 07/24/17 04:00 76 07/24/17 04:00 97.0 74 23 115/59 99 Room Air 97.0 07/24/17 00:00 62 07/24/17 00:00 97.0 68 20 105/53 99 Room Air 97.0 07/23/17 20:00 97.0 73 22 116/70 99 Room Air 97.0 07/23/17 20:00 62 07/23/17 16:00 96.9 72 19 112/45 99 Room Air 96.9 07/23/17 15:15 71 07/23/17 12:00 96.9 72 19 122/79 99 Room Air 96.9 07/23/17 11:42 73 Intake and Output 07/23/17 07/24/17 19:00 07:00 Intake Total 352 ml Balance 352 ml Intake Oral 352 ml # Voids 1 2 Height (Feet): 5 Height (Inches): 2.00 Weight (Pounds): 150 General Appearance: WD/WN, no apparent distress, alert Cardiovascular: normal rate Respiratory/Chest: normal breath sounds, no respiratory distress Abdominal Exam: normal bowel sounds, non tender, soft Extremities: normal range of motion, non-tender Juli Oliveros N.P. Jul 24, 2017 11:15
[2017-07-24 11:55] LABS: BASOPHILS % (AUTO) 1.4 % (0.0-2.0); EOSINOPHILS % (AUTO) 2.1 % (0.0-3.0); HEMATOCRIT 41.4 % (37.0-47.0); HEMOGLOBIN 13.7 G/DL (12.0-16.0); LYMPHOCYTES % (AUTO) 33.2 % (20.0-45.0); MEAN CORPUSCULAR VOLUME 84 FL (80-99); MONOCYTES % (AUTO) 8.9 % (1.0-10.0); NEUTROPHILS % (AUTO) 54.4 % (45.0-75.0); PLATELET COUNT 193 K/UL (150-450); RED BLOOD COUNT 4.92 M/UL (4.20-5.40); RED CELL DISTRIBUTION WIDTH 15.7 % (11.6-14.8); WHITE BLOOD COUNT 4.8 K/UL (4.8-10.8)
[2017-07-24 12:00] VITALS: BP 120/68
[2017-07-24 12:30] LABS: ALANINE AMINOTRANSFERASE 20 U/L (12-78); ALBUMIN 3.5 G/DL (3.4-5.0); ALBUMIN/GLOBULIN RATIO 0.9 (1.0-2.7); ALKALINE PHOSPHATASE 141 U/L (46-116); ANION GAP 5 mmol/L (5-15); ASPARTATE AMINO TRANSFERASE 19 U/L (15-37); BILIRUBIN,TOTAL 0.9 MG/DL (0.2-1.0); BLOOD UREA NITROGEN 10 mg/dL (7-18); CALCIUM 9.5 MG/DL (8.5-10.1); CARBON DIOXIDE 30 MMOL/L (21-32); CHLORIDE 104 MMOL/L (98-107); CREATININE 0.7 MG/DL (0.55-1.30); PHOSPHORUS 2.9 MG/DL (2.5-4.9); POTASSIUM 3.6 MMOL/L (3.5-5.1); SODIUM 139 MMOL/L (136-145)
--- NOTE | 2017-07-24 13:01 | Pulmonology Progress Note ---
Assessment/Plan Problems: (1) ACS (acute coronary syndrome) (2) Abdominal pain Assessment/Plan responded to Carafate and protonix PE ruled out no ACS dc home Subjective ROS Limited/Unobtainable: No Constitutional: Reports: no symptoms HEENT: Repors: no symptoms Respiratory: Reports: no symptoms Allergies: Coded Allergies: Broccoli (Verified Allergy, Unknown, 04/05/16) IBUPROFEN (Verified Allergy, Unknown, 12/19/08) LACTOSE (Verified Allergy, Unknown, 12/10/15) Lactose intolerant MILK (Verified Allergy, Unknown, 08/15/11) ONION (Verified Allergy, Unknown, 04/05/16) ORANGE JUICE (Verified Allergy, Unknown, 04/05/16) TOMATO (Verified Allergy, Unknown, 04/05/16) Objective Last 24 Hour Vital Signs Date Time Temp Pulse Resp B/P (MAP) Pulse Ox O2 Delivery O2 Flow Rate FiO2 07/24/17 08:00 64 07/24/17 08:00 96.5 56 16 125/44 98 Room Air 96.5 07/24/17 04:00 76 07/24/17 04:00 97.0 74 23 115/59 99 Room Air 97.0 07/24/17 00:00 62 07/24/17 00:00 97.0 68 20 105/53 99 Room Air 97.0 07/23/17 20:00 97.0 73 22 116/70 99 Room Air 97.0 07/23/17 20:00 62 07/23/17 16:00 96.9 72 19 112/45 99 Room Air 96.9 07/23/17 15:15 71 Intake and Output 07/23/17 07/24/17 19:00 07:00 Intake Total 352 ml Balance 352 ml Intake Oral 352 ml # Voids 1 2 Objective General Appearance: WD/WN Lines, tubes and drains: peripheral HEENT: normocephalic, atraumatic Neck: non-tender, normal alignment Respiratory/Chest: chest wall non-tender, lungs clear Cardiovascular/Chest: normal peripheral pulses, normal rate Abdomen: normal bowel sounds, non tender Genitourinary/Rectal: normal genital exam, normal rectal exam Extremities: normal range of motion, non-tender Skin Exam: normal pigmentation 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 Laboratory Tests 07/24/17 11:25: White Blood Count 4.8, Red Blood Count 4.92, Hemoglobin 13.7, Hematocrit 41.4, Mean Corpuscular Volume 84, Mean Corpuscular Hemoglobin 27.9, Mean Corpuscular Hemoglobin Concent 33.2, Red Cell Distribution Width 15.7H, Platelet Count 193, Mean Platelet Volume 8.0, Neutrophils (%) (Auto) 54.4, Lymphocytes (%) (Auto) 33.2, Monocytes (%) (Auto) 8.9, Eosinophils (%) (Auto) 2.1, Basophils (%) (Auto ) 1.4, Erythrocyte Sedimentation Rate [Pending], Sodium Level 139, Potassium Level 3.6, Chloride Level 104, Carbon Dioxide Level 30, Anion Gap 5, Blood Urea Nitrogen 10, Creatinine 0.7, Estimat Glomerular Filtration Rate , Glucose Level 81, Calcium Level 9.5, Phosphorus Level 2.9, Magnesium Level 2.1, Total Bilirubin 0.9, Aspartate Amino Transf (AST/SGOT) 19, Alanine Aminotransferase ( ALT/SGPT) 20, Alkaline Phosphatase 141H, Troponin I 0.000, Total Protein 7.3, Albumin 3.5, Globulin 3.8, Albumin/Globulin Ratio 0.9L Current Medications Medications (Trade) Dose Ordered Sig/Radha Route PRN Reason Start Time Stop Time Status Last Admin Dose Admin Acetaminophen/ Hydrocodone Bitart ([place] 5/325) 1 tab Q6H PRN ORAL Moderate Pain (Pain Scale 4-6) 07/23/17 08:15 07/30/17 08:14 Morphine Sulfate (Morphine Sulfate) 4 mg Q4H PRN IVP Severe Pain (Pain Scale 7-10) 07/23/17 08:15 07/30/17 08:14 07/23/17 08:54 Ondansetron HCl (Zofran) 4 mg Q4HR PRN IVP Nausea & Vomiting 07/23/17 08:15 08/22/17 08:14 Pantoprazole (Protonix) 40 mg DAILY IVP 07/25/17 09:00 08/22/17 08:59 Sucralfate (Carafate) 1 gm FOUR TIMES A DAY ORAL 07/23/17 09:00 08/22/17 08:59 07/24/17 09:22 LEILANI NICOLE Jul 24, 2017 13:01
--- NOTE | 2017-07-24 16:47 | Discharge Summary ---
Discharge Summary Hospital Course Date of Admission Jul 23, 2017 at 03:22 Date of Discharge Jul 24, 2017 at 15:15 Admitting Diagnosis Acute Coronary Syndrome HPI Holly Day is a 72 year old female who was admitted on Jul 23, 2017 at 03:22 for Chest Pain,Abdominal Pain,Nausea Hospital Course [id number] Discharge Discharge Disposition Patient was discharged to Home () Discharge Diagnoses: Lucila Robledo NP Jul 24, 2017 16:47
--- NOTE | 2017-07-25 03:30 | Discharge Summary 2 SIG ---
DATE OF ADMISSION: 07/23/2017 DATE OF DISCHARGE: 07/24/2017 ATTENDING PHYSICIAN: Silvino Calvillo M.D. CONSULTANTS: 1. Chano Ling M.D. 2. Patrick Zheng M.D. BRIEF HOSPITAL COURSE: The patient is a 72-year-old female, who presented to ED complaining of chest pain. Symptoms began approximately a week prior when the patient started vomiting while on the city bus. She also had been drinking. She experienced lower abdominal pain and had more nausea and vomiting and felt dizzy. She felt pain radiated to her chest. She presented to [facility] for further evaluation. She has medical history significant for gastritis, Paget's disease of the left femur, osteoarthritis of the lumbar spine, and history of gastritis. On evaluation at ED, initial troponin was negative. She had an EKG that showed normal sinus rhythm with no acute changes. Chest x-ray showed no acute disease. She was admitted to telemetry for evaluation of possible acute coronary syndrome. Cardiac troponins were monitored. The patient was seen by grain shipper. The patient's pain most likely noncardiac chest pain as pain was mostly epigastric and possibly due to gastritis. Quality and intensity not typical for unstable angina. She was given proton pump inhibitors and Carafate. She was given symptomatic treatment. Diet was advanced to regular diet. Symptoms responded to Carafate and Protonix. Cardiac troponins were negative. Due to rapid unexpected improvement in patients symptoms, she was eventually discharged home. FINAL DIAGNOSES: 1. Abdominal pain, possibly gastritis. 2. Noncardiac chest pain. 3. Hypertension. 4. Hiatal hernia. 5. Gastroesophageal reflux disease. 6. Constipation. 7. Paget's disease of the left femur. 8. Osteoarthritis of the lumbar spine. DISPOSITION: The patient was discharged home. DISCHARGE MEDICATIONS: Refer to medication list. DISCHARGE INSTRUCTIONS: Follow up as outpatient in a week. Chano Ling M.D. I have been assigned to dictate discharge summary on this account and I was not involved in the patient's management. Lucila Robledo N.P. DR: AGNES JOB#: [id number] CC: DASH
[2017-07-25] MEDS ORDERED: Pantoprazole Inj IVP SCH (09:00)
--- NOTE | 2017-07-29 10:22 | Cardiology Report ---
APPROVED REPORT EXAM: Two-dimensional and M-mode echocardiogram with Doppler and color Doppler. INDICATION Left ventricular function M-Mode DIMENSIONS IVSd1.3 (0.7-1.1cm)Left Atrium (MM)3.5 (1.6-4.0cm) LVDd3.1 (3.5-5.6cm)Aortic Root2.9 (2.0-3.7cm) PWd1.1 (0.7-1.1cm)Aortic Cusp Exc.1.5 (1.5-2.0cm) LVDs1.1 (2.5-4.0cm) PWs1.7 cm Hyperdynamic left ventricular chamber size, systolic function and wall motion with cavitiy obliteration Left ventricular ejection fraction estimated to be 70-75%. Mild left ventricular hypertrophy. No evidence of pericardial or pleural effusion. All other cardiac chamber sizes are within normal limits. Focal aortic valve sclerosis with adequate cusp excursion. Thickened mitral valve leaflets with normal excursion. Mild mitral annulus and aortic root calcification. Pulmonic valve is well visualized. Normal tricuspid valve structure. IVC is normal in size and collapsible with respiration. A color flow and spectral Doppler study was performed and revealed: Mild aortic regurgitation. No mitral regurgitation. Mitral diastolic velocities suggest reduced left ventricular relaxation c/w diastolic dysfunction grade 1. No tricuspid regurgitation.
--- NOTE | 2017-07-30 16:05 | Cardiology Report ---
APPROVED REPORT EKG Measurement Heart [id number] Normal sinus rhythm Possible Left atrial enlargement Borderline ECG
== END 2017-07-24 15:15 | disposition home or self-care (01) | DRG 392 ==
LOC: EMR 03:19 → 2E 03:22 → EDBEDREQ 03:35
DX: K29.70 Gastritis, unspecified, without bleeding (principal); I10 Essential (primary) hypertension; K21.9 Gastro-esophageal reflux disease without esophagitis; K44.9 Diaphragmatic hernia without obstruction or gangrene; M47.816 Spondylosis without myelopathy or radiculopathy, lumbar region; M88.852 Osteitis deformans of left thigh; R07.89 Other chest pain; K59.00 Constipation, unspecified
CPT/HCPCS: 36415; 71045; 80053; 82550; 82553; 83690; 83735; 83880; 84100; 84484; 85025; 85651; 93005; 93306; 99285

== ENCOUNTER 2017-07-29 09:42 | Outpatient (CLI) | payer MEDICARE, MEDICAID ==
[2017-07-29 09:48] VITALS: BP 154/84
[2017-07-29] MEDS ORDERED: PANTOPRAZOLE SO40 MG ORAL (09:59)
--- NOTE | 2017-07-30 13:04 | GI Progress Note ---
Assessment/Plan Problems: (1) GERD (gastroesophageal reflux disease) ICD Codes: K21.9 - Gastro-esophageal reflux disease without esophagitis SNOMED: 020121839 (2) Gastritis (3) Abdominal pain ICD Codes: R10.9 - Abdominal pain SNOMED: 06776111 Status: stable Status Narrative Seen with Dr. Zheng. Assessment/Plan cont protonix d/c carafate RTC prn Subjective Subjective GERD recent IP for CP Nexium no longer covered, changed to protonix daily refusing EGD last colon jan 2013 - due this year Objective T 98.1 BP 154/84 P 110 95 RA General Appearance: WD/WN, no apparent distress, alert Cardiovascular: normal rate Respiratory/Chest: normal breath sounds, no respiratory distress Abdominal Exam: normal bowel sounds, non tender, soft Extremities: normal range of motion, non-tender Juli Oliveros N.P. Jul 30, 2017 13:04
== END 2017-07-29 10:15 | disposition home or self-care (01) ==
LOC: PAN 09:42
DX: K21.9 Gastro-esophageal reflux disease without esophagitis (principal); K29.70 Gastritis, unspecified, without bleeding; R10.9 Unspecified abdominal pain
CPT/HCPCS: 99212

== ENCOUNTER 2017-08-06 10:51 | Emergency (ER) | payer MEDICARE, MEDICAID ==
[~2017-08-06] VITALS: Ht 157.5 cm; Wt 72.6 kg
[~2017-08-06 10:51] MED LIST changes: +PANTOPRAZOLE SO40 MG ORAL
[2017-08-06] MEDS ORDERED: Mylanta II UD 30ml ORAL ONE ×2 (11:15→13:15)
[2017-08-06] MEDS ORDERED: Lidocaine 2% Visc 15ml soln ORAL ONE ×2 (11:15→13:15)
[2017-08-06] MEDS ORDERED: Dicyclomine HCl 10mg/5ml oral soln ORAL ONE ×2 (11:15→13:15)
[2017-08-06] MEDS ORDERED: Esomeprazole sodium 40mg vial IVP ONE (11:15)
--- NOTE | 2017-08-06 11:20 | Emergency Room Report ---
History of Present Illness General Chief Complaint: Chest Pain Source: Patient Present Illness HPI 72-year-old female, history of gastritis, hiatal hernia, p/w epigastric abd pain for 3 weeks. Patient states pain started gradually , localized to epigastric area, non radiating, burning in nature, intermittent. No relieving or exacerbating factors. Admits to have this pain multiple times in the past. States that this feels like her gastritis pain. States that the reason he came back is because her insurance no longer covers Nexium which is the only thing that usually helps her Denies nvd. Denies fever, chills. She states she regularly follows up with her audio visual production specialist, and the last time was one week ago Allergies: Coded Allergies: Broccoli (Verified Allergy, Unknown, 04/05/16) IBUPROFEN (Verified Allergy, Unknown, 12/19/08) LACTOSE (Verified Allergy, Unknown, 12/10/15) Lactose intolerant MILK (Verified Allergy, Unknown, 08/15/11) ONION (Verified Allergy, Unknown, 04/05/16) ORANGE JUICE (Verified Allergy, Unknown, 04/05/16) TOMATO (Verified Allergy, Unknown, 04/05/16) Patient History Past Medical History: see triage record Past Surgical History: none Pertinent Family History: none Reviewed Nursing Documentation: PMH: Agreed, PSxH: Agreed Nursing Documentation-PMH Past Medical History: No History, Except For Hx Cardiac Problems: Yes Hx Hypertension: Yes Hx Pacemaker: No Hx Asthma: No Hx COPD: No Hx Diabetes: No Hx Cancer: No Hx Gastrointestinal Problems: Yes - gastritis, GERD, hiatal hernia Hx Dialysis: No Hx Neurological Problems: No Hx Cerebrovascular Accident: No Hx Seizures: No Review of Systems All Other Systems: negative except mentioned in HPI Physical Exam Vital Signs Date Time Temp Pulse Resp B/P (MAP) Pulse Ox O2 Delivery O2 Flow Rate FiO2 08/06/17 10:56 98.4 101 18 173/90 98 Room Air 98.4 Sp02 EP Interpretation: reviewed, normal General Appearance: alert, GCS 15, non-toxic, moderate distress Head: normocephalic, atraumatic Eyes: bilateral eye normal inspection, bilateral eye PERRL, bilateral eye EOMI ENT: normal ENT inspection, normal pharynx, normal voice, moist mucus membranes Neck: normal inspection, full range of motion, supple Respiratory: normal inspection, lungs clear, normal breath sounds, no respiratory distress, no retraction, no wheezing, speaking full sentences, chest symmetrical Cardiovascular #1: normal inspection, regular rate, rhythm, no edema, normal capillary refill Cardiovascular #2: 2+ radial (R), 2+ radial (L) Gastrointestinal: other - epigastric tendernss. soft abdomen. nontende elsewherre Musculoskeletal: normal inspection, back normal, normal range of motion, non- tender Neurologic: normal inspection, alert, oriented x3, responsive, motor strength/ tone normal, sensory intact, normal gait, speech normal Psychiatric: normal inspection, judgement/insight normal, memory normal Skin: normal inspection, normal color, no rash, warm/dry, well hydrated, normal turgor Medical Decision Making Diagnostic Impression: Primary Impression: Chronic epigastric pain ER Course 72-year-old female with epigastric abdominal pain Differential Diagnosis: Gastritis, gastroenteritis, cholecystitis, appendicitis, diverticulitis, cardiac , UTI/pyelo At this time abdomen is soft nontender except for epigastric region, not likely to have acute intra-abdominal surgical pathology, will hold CT for now. Plan: Basic labs, ua, ekg Nexium, maalox, pain control, IVF ER course: Patient has remained stable during ED stay. Pain improved. Patient difficult stick to obtain IV line, given by mouth medications, we do not carry Nexium by mouth Patient feels much better with the medications that she caught, states that she follow-up with her audio visual production specialist in one week Disposition: Patient is to be discharged to home. Patient is instructed to follow up with gastroentertology in 1 week Strict return precautions discussed with patient such as fever, chills, worsening/severe abdominal pain, nausea, vomiting, black or bloody stools, which may indicate severe illness. Patient verbalizes understanding and agrees with plan. Please note that this Emergency Department Report was dictated using [employer] ([employer])lithostripper technology software, occasionally this can lead to erroneous entry secondary to interpretation by the dictation equipment EKG Diagnostic Results EP Interpretation: Yes Rate: normal Rhythm: NSR ST Segments: No acute changes ASA given to patient: No Rhythm Strip EP Interpretation: Yes Rate: 100 Rhythm: NSR, no PVCs, no ectopy Laboratory Tests Test 08/06/17 12:10 White Blood Count 6.3 K/UL (4.8-10.8) Red Blood Count 5.21 M/UL (4.20-5.40) Hemoglobin 14.2 G/DL (12.0-16.0) Hematocrit 44.0 % (37.0-47.0) Mean Corpuscular Volume 84 FL (80-99) Mean Corpuscular Hemoglobin 27.3 PG (27.0-31.0) Mean Corpuscular Hemoglobin Concent 32.3 G/DL (32.0-36.0) Red Cell Distribution Width 15.0 % (11.6-14.8) H Platelet Count 223 K/UL (150-450) Mean Platelet Volume 7.7 FL (6.5-10.1) Neutrophils (%) (Auto) 76.8 % (45.0-75.0) H Lymphocytes (%) (Auto) 15.4 % (20.0-45.0) L Monocytes (%) (Auto) 6.3 % (1.0-10.0) Eosinophils (%) (Auto) 0.8 % (0.0-3.0) Basophils (%) (Auto) 0.8 % (0.0-2.0) Sodium Level 142 MMOL/L (136-145) Potassium Level 3.9 MMOL/L (3.5-5.1) Chloride Level 106 MMOL/L (98-107) Carbon Dioxide Level 30 MMOL/L (21-32) Anion Gap 6 mmol/L (5-15) Blood Urea Nitrogen 9 mg/dL (7-18) Creatinine 0.6 MG/DL (0.55-1.30) Estimate Glomerular Filtration Rate mL/min (>60) Glucose Level 92 MG/DL (74-106) Calcium Level 9.4 MG/DL (8.5-10.1) Total Bilirubin 0.5 MG/DL (0.2-1.0) Aspartate Amino Transferase (AST) 18 U/L (15-37) Alanine Aminotransferase (ALT) 20 U/L (12-78) Alkaline Phosphatase 141 U/L (46-116) H Troponin I 0.000 ng/mL (0.000-0.056) Pro-B-Type Natriuretic Peptide 49 pg/mL (0-125) Total Protein 7.4 G/DL (6.4-8.2) Albumin 3.6 G/DL (3.4-5.0) Globulin 3.8 g/dL Albumin/Globulin Ratio 0.9 (1.0-2.7) L Lipase 118 U/L (73-393) Last Vital Signs Date Time Temp Pulse Resp B/P (MAP) Pulse Ox O2 Delivery O2 Flow Rate FiO2 08/06/17 10:56 98.4 101 18 173/90 98 Room Air 98.4 Disposition: HOME, SELF-CARE Condition: Improved Referrals: Silvino Calvillo MD (PCP) Sophie Gamez M.D. Aug 06, 2017 11:19
[2017-08-06 12:25] VITALS: BP 156/82
[2017-08-06 12:33] LABS: BASOPHILS % (AUTO) 0.8 % (0.0-2.0); EOSINOPHILS % (AUTO) 0.8 % (0.0-3.0); HEMOGLOBIN 14.2 G/DL (12.0-16.0); LYMPHOCYTES % (AUTO) 15.4 % (20.0-45.0); MEAN CORPUSCULAR VOLUME 84 FL (80-99); MONOCYTES % (AUTO) 6.3 % (1.0-10.0); NEUTROPHILS % (AUTO) 76.8 % (45.0-75.0); PLATELET COUNT 223 K/UL (150-450); RED BLOOD COUNT 5.21 M/UL (4.20-5.40); WHITE BLOOD COUNT 6.3 K/UL (4.8-10.8)
[2017-08-06 12:48] LABS: ANION GAP 6 mmol/L (5-15); BLOOD UREA NITROGEN 9 mg/dL (7-18); CALCIUM 9.4 MG/DL (8.5-10.1); CARBON DIOXIDE 30 MMOL/L (21-32); CHLORIDE 106 MMOL/L (98-107); CREATININE 0.6 MG/DL (0.55-1.30); POTASSIUM 3.9 MMOL/L (3.5-5.1); SODIUM 142 MMOL/L (136-145)
[2017-08-06 12:59] LABS: ALANINE AMINOTRANSFERASE 20 U/L (12-78); ALBUMIN 3.6 G/DL (3.4-5.0); ALBUMIN/GLOBULIN RATIO 0.9 (1.0-2.7); ALKALINE PHOSPHATASE 141 U/L (46-116); ASPARTATE AMINO TRANSFERASE 18 U/L (15-37); BILIRUBIN,TOTAL 0.5 MG/DL (0.2-1.0)
[2017-08-06 13:19] VITALS: BP 137/79
--- NOTE | 2017-08-06 14:19 | Diagnostic Imaging Report ---
Indication: Reason For Exam: PAIN Technique: One view of the chest Comparison: Findings: Lungs and pleural spaces are clear. Heart size is normal. Aorta is somewhat tortuous and calcified. No significant interim change Impression: No acute process
== END 2017-08-06 13:40 | disposition home or self-care (01) ==
LOC: EMR 11:12
DX: R10.13 Epigastric pain (principal); I10 Essential (primary) hypertension; Z88.6 Allergy status to analgesic agent; Z91.011 Allergy to milk products; Z91.018 Allergy to other foods
CPT/HCPCS: 36415; 71045; 80053; 83690; 83880; 84484; 85025; 93005; 99283

== ENCOUNTER 2017-08-11 14:37 | Outpatient (CLI) | payer MEDICARE, MEDICAID ==
[2017-08-11 15:02] VITALS: BP 112/68
--- NOTE | 2017-08-11 16:11 | GI Progress Note ---
Assessment/Plan Problems: (1) ACS (acute coronary syndrome) ICD Codes: I20.0 - Unstable angina SNOMED: 976149443 (2) Gastritis (3) Chest pain ICD Codes: R07.9 - Chest pain, unspecified SNOMED: 43454695 (4) Abdominal pain ICD Codes: R10.9 - Abdominal pain SNOMED: 07284810 Status: stable Status Narrative Seen with Dr. Zheng. Assessment/Plan recent admit to [facility] c/o of CP/Abdominal Pain resume nexium Align RTC prn Subjective Subjective GERD >> nexium not covered, protonix does not work read an article and now dose not want to take meds because of side effects wants to go all natural recent admit to [facility] ER Objective Last 24 Hour Vital Signs Date Time Temp Pulse Resp B/P (MAP) Pulse Ox O2 Delivery O2 Flow Rate FiO2 08/11/17 15:02 97.3 86 16 112/68 98 97.3 General Appearance: WD/WN, no apparent distress, alert Cardiovascular: normal rate Respiratory/Chest: normal breath sounds, no respiratory distress Abdominal Exam: normal bowel sounds, non tender, soft Extremities: normal range of motion, non-tender Juli Oliveros N.P. Aug 11, 2017 16:11
== END 2017-08-11 15:12 | disposition home or self-care (01) ==
LOC: PAN 14:37
DX: I20.0 Unstable angina (principal); K29.70 Gastritis, unspecified, without bleeding; R07.9 Chest pain, unspecified; R10.9 Unspecified abdominal pain; K21.9 Gastro-esophageal reflux disease without esophagitis
CPT/HCPCS: 99213

== ENCOUNTER 2017-08-25 14:22 | Outpatient (CLI) | payer MEDICARE, MEDICAID ==
--- NOTE | 2017-08-25 15:30 | GI Progress Note ---
Assessment/Plan Problems: (1) GERD (gastroesophageal reflux disease) ICD Codes: K21.9 - Gastro-esophageal reflux disease without esophagitis SNOMED: 980535075 (2) Hiatal hernia ICD Codes: K44.9 - Hiatal hernia SNOMED: 02900877 (3) Gastritis Status: stable Status Narrative Seen with Dr. Zheng. Assessment/Plan continue Nexium 40 mg RTC prn Subjective Gastrointestinal/Abdominal: Reports: no symptoms Subjective Nexium brand name is only medication that relieves patients GERD Objective T 98.1 BP 134/74 P 103 94 RA General Appearance: WD/WN, no apparent distress, alert Cardiovascular: normal rate Respiratory/Chest: normal breath sounds, no respiratory distress Abdominal Exam: normal bowel sounds, non tender, soft Extremities: normal range of motion, non-tender Juli Oliveros N.P. Aug 25, 2017 15:30
== END 2017-08-25 14:55 | disposition home or self-care (01) ==
LOC: PAN 14:22
DX: K21.9 Gastro-esophageal reflux disease without esophagitis (principal); K44.9 Diaphragmatic hernia without obstruction or gangrene; K29.70 Gastritis, unspecified, without bleeding
CPT/HCPCS: 99211

== ENCOUNTER 2017-10-03 10:30 | Inpatient (IN) | payer MEDICARE, MEDICAID ==
[~2017-10-03] VITALS: Ht 157.5 cm; Wt 72.6 kg
[2017-10-03 11:11] LABS: BASOPHILS % (AUTO) 1.5 % (0.0-2.0); EOSINOPHILS % (AUTO) 1.8 % (0.0-3.0); HEMATOCRIT 43.9 % (37.0-47.0); HEMOGLOBIN 13.7 G/DL (12.0-16.0); MEAN CORPUSCULAR VOLUME 85 FL (80-99); MONOCYTES % (AUTO) 7.1 % (1.0-10.0); NEUTROPHILS % (AUTO) 66.6 % (45.0-75.0); PLATELET COUNT 207 K/UL (150-450); RED BLOOD COUNT 5.13 M/UL (4.20-5.40); RED CELL DISTRIBUTION WIDTH 14.7 % (11.6-14.8); WHITE BLOOD COUNT 4.9 K/UL (4.8-10.8)
[2017-10-03 11:13] LABS: BILIRUBIN, URINE NEGATIVE (NEGATIVE); COLOR,URINE PALE YELLOW; GLUCOSE, URINE (UA) NEGATIVE (NEGATIVE); KETONES,URINE NEGATIVE (NEGATIVE); LEUKOCYTE ESTERASE ,URINE 2+ (NEGATIVE); NITRITE,URINE NEGATIVE (NEGATIVE); PH,URINE 5 (4.5-8.0); PROTEIN,URINE NEGATIVE (NEGATIVE); UROBILINOGEN,URINE NORMAL MG/DL (0.0-1.0)
[2017-10-03] MEDS ORDERED: Mylanta II UD 30ml ORAL ONE (11:15)
[2017-10-03] MEDS ORDERED: Lidocaine 2% Visc 15ml soln ORAL ONE (11:15)
[2017-10-03] MEDS ORDERED: Isovue-300 100ml vial INJ PRN (11:15)
[2017-10-03 11:20] LABS: APPEARANCE,URINE SLIGHTLY CLOUDY
[2017-10-03 11:33] LABS: INR 0.9 (0.9-1.1)
[2017-10-03 11:53] LABS: ANION GAP 10 mmol/L (5-15); BLOOD UREA NITROGEN 18 mg/dL (7-18); CARBON DIOXIDE 27 MMOL/L (21-32); CHLORIDE 102 MMOL/L (98-107); CREATININE 0.7 MG/DL (0.55-1.30); POTASSIUM 4.3 MMOL/L (3.5-5.1); SODIUM 139 MMOL/L (136-145)
[2017-10-03 11:57] LABS: ALANINE AMINOTRANSFERASE 20 U/L (12-78); ALKALINE PHOSPHATASE 168 U/L (46-116); ASPARTATE AMINO TRANSFERASE 29 U/L (15-37); BILIRUBIN,TOTAL 0.6 MG/DL (0.2-1.0)
[2017-10-03 12:00] VITALS: BP 149/81
[2017-10-03] MEDS ORDERED: Morphine Sulfate 4mg/ml Inj IVP ONE (12:30)
--- NOTE | 2017-10-03 12:55 | Emergency Room Report ---
History of Present Illness General Chief Complaint: Abdominal Pain Source: Patient Present Illness HPI This patient has a history of severe gastritis and GERD. She states that she had diet indiscretion and ate at [employer] and has since developed an exacerbation of her gastritis. She describes severe epigastric pain with nausea. She states this is typical for her episodes. She states that normally she requires morphine for pain control. She denies fever or chills. She denies lower abdominal pain. She denies dysuria or hematuria. She denies neck pain or headache. She denies blurry vision. She has no other complaints. Allergies: Coded Allergies: Broccoli (Verified Allergy, Unknown, 04/05/16) IBUPROFEN (Verified Allergy, Unknown, 12/19/08) LACTOSE (Verified Allergy, Unknown, 12/10/15) Lactose intolerant MILK (Verified Allergy, Unknown, 08/15/11) ONION (Verified Allergy, Unknown, 04/05/16) ORANGE JUICE (Verified Allergy, Unknown, 04/05/16) TOMATO (Verified Allergy, Unknown, 04/05/16) Patient History Past Medical History: see triage record, HTN, GERD Social History: Denies: smoking, alcohol use, drug use Reviewed Nursing Documentation: PMH: Agreed; PSxH: Agreed Nursing Documentation-PMH Hx Cardiac Problems: Yes Hx Hypertension: Yes Hx Pacemaker: No Hx Asthma: No Hx COPD: No Hx Diabetes: No Hx Cancer: No Hx Gastrointestinal Problems: Yes - gastritis, GERD, hiatal hernia Hx Dialysis: No Hx Neurological Problems: No Hx Cerebrovascular Accident: No Hx Seizures: No Review of Systems All Other Systems: negative except mentioned in HPI Physical Exam Vital Signs Date Time Temp Pulse Resp B/P (MAP) Pulse Ox O2 Delivery O2 Flow Rate FiO2 10/03/17 10:33 97.7 96 20 139/82 96 Room Air 97.7 Sp02 EP Interpretation: reviewed, normal General Appearance: no apparent distress, alert, GCS 15, non-toxic Head: normocephalic, atraumatic Eyes: bilateral eye normal inspection, bilateral eye PERRL ENT: hearing grossly normal, normal pharynx, no angioedema, normal voice Neck: full range of motion, supple/symm/no masses Respiratory: chest non-tender, lungs clear, normal breath sounds, no respiratory distress, no retraction, no accessory muscle use, speaking full sentences Cardiovascular #1: regular rate, rhythm, no edema Gastrointestinal: normal bowel sounds, soft, non-distended, no guarding, no rebound, tenderness - epigastrium Rectal: deferred Musculoskeletal: back normal, gait/station normal, normal range of motion, non- tender Neurologic: alert, oriented x3, responsive, motor strength/tone normal, sensory intact, speech normal Psychiatric: judgement/insight normal, memory normal, mood/affect normal, no suicidal/homicidal ideation Skin: normal color, no rash, warm/dry, well hydrated Medical Decision Making Diagnostic Impression: Primary Impression: Gastritis Additional Impressions: Intractable pain Nausea & vomiting ER Course This patient presents with an episode of severe gastritis. She has persistent nausea and vomiting and intractable pain. She does have a history of this. She has undergone evaluation and workup extensively by gastroenterology. She has a known hiatal hernia. She was given IV Pepcid, GI cocktail multiple doses of morphine. She continues to have pain. She is admitted for intractable pain and vomiting. See medical record. No significant abnormal findings. EKG Diagnostic Results Rate: normal Rhythm: NSR ST Segments: no acute changes Rhythm Strip Diag. Results EP Interpretation: yes Rate: 80's Rhythm: NSR, no PVC's, no ectopy Last Vital Signs Date Time Temp Pulse Resp B/P (MAP) Pulse Ox O2 Delivery O2 Flow Rate FiO2 10/03/17 12:51 97.7 10/03/17 12:00 83 13 149/81 100 Room Air Disposition: ADMITTED INPATIENT Condition: Stable Referrals: Silvino Calvillo MD (PCP) DAMIAN RIOS D.O. October 03, 2017 12:55
[2017-10-03 13:57] VITALS: BP 138/87
[2017-10-03 14:00] VITALS: BP 136/69
[2017-10-03 14:35] VITALS: BP 137/75
[2017-10-03] MEDS ORDERED: Morphine Sulfate 4mg/ml Inj IV PRN ×2 (15:08)
[2017-10-03 16:00] VITALS: BP 121/70
[2017-10-03] MEDS: D5 1/2NS w/KCl 20mEq 1,000 ML IV SCH (16:00)
[2017-10-03 20:25] VITALS: BP 126/66
[2017-10-03] MEDS: Esomeprazole sodium 40mg vial IVP SCH ×2 (20:27→20:36)
--- NOTE | 2017-10-03 23:03 | History & Physical ---
History and Physical History & Physicial Silvino Calvillo MD October 03, 2017 23:03
[2017-10-04 00:05] VITALS: BP 105/61
[2017-10-04 04:37] VITALS: BP 110/60
[2017-10-04] MEDS: D5 1/2NS w/KCl 20mEq 1,000 ML IV SCH ×2 (05:02→18:30)
[2017-10-04 07:51] LABS: BASOPHILS % (AUTO) 0.4 % (0.0-2.0); EOSINOPHILS % (AUTO) 1.6 % (0.0-3.0); HEMATOCRIT 37.8 % (37.0-47.0); HEMOGLOBIN 12.3 G/DL (12.0-16.0); LYMPHOCYTES % (AUTO) 14.7 % (20.0-45.0); MEAN CORPUSCULAR VOLUME 85 FL (80-99); MONOCYTES % (AUTO) 8.1 % (1.0-10.0); NEUTROPHILS % (AUTO) 75.1 % (45.0-75.0); PLATELET COUNT 180 K/UL (150-450); RED BLOOD COUNT 4.42 M/UL (4.20-5.40); RED CELL DISTRIBUTION WIDTH 14.3 % (11.6-14.8); WHITE BLOOD COUNT 7.1 K/UL (4.8-10.8)
[2017-10-04 08:00] VITALS: BP 100/60
[2017-10-04 08:23] LABS: ALANINE AMINOTRANSFERASE 28 U/L (12-78); ALBUMIN 3.2 G/DL (3.4-5.0); ALKALINE PHOSPHATASE 135 U/L (46-116); ANION GAP 7 mmol/L (5-15); ASPARTATE AMINO TRANSFERASE 23 U/L (15-37); BILIRUBIN,TOTAL 1.2 MG/DL (0.2-1.0); BLOOD UREA NITROGEN 15 mg/dL (7-18); CARBON DIOXIDE 29 MMOL/L (21-32); CHLORIDE 105 MMOL/L (98-107); CREATININE 0.7 MG/DL (0.55-1.30); PHOSPHORUS 3.8 MG/DL (2.5-4.9); POTASSIUM 4.1 MMOL/L (3.5-5.1); SODIUM 141 MMOL/L (136-145)
[2017-10-04 08:30] LABS: BILIRUBIN,DIRECT 0.2 MG/DL (0.0-0.3)
[2017-10-04] MEDS ORDERED: Esomeprazole sodium 40mg vial IVP SCH (09:00)
[2017-10-04 12:00] VITALS: BP 124/71
[2017-10-04] MEDS: NEXIUM 40 MG ORAL SCH (12:06)
--- NOTE | 2017-10-04 12:14 | Consultation ---
History of Present Illness General Date patient seen: October 04, 2017 Time patient seen: 10:00 Chief Complaint: Abdominal Pain Referring physician: dr Calvillo Reason for Consultation: in hosp management, Present Illness HPI 72 years old female with past medical history significant for hypertension, gastritis, GERD, chronic epigastric pain, Paget disease left femur, presented to emergency department with complaint of abdominal pain. pain was described as crampy and colicky , causing significant discomfort Patient reported nausea and vomiting. No hematemesis. Patient reported episode started after eating out fish at restaurant . Patient felt it may be food poisoning. She denied diarrhea. She denied fever or chills. laboratory workup revealed no leukocytosis. vital signs showed no fever. Stable electrolytes LFT lipase troponin negative patient was given Pepcid and Zofran and analgesic for pain relied patient was admitted to Med Surg floor for further management Allergies: Coded Allergies: Broccoli (Verified Allergy, Unknown, 04/05/16) IBUPROFEN (Verified Allergy, Unknown, 12/19/08) LACTOSE (Verified Allergy, Unknown, 12/10/15) Lactose intolerant MILK (Verified Allergy, Unknown, 08/15/11) ONION (Verified Allergy, Unknown, 04/05/16) ORANGE JUICE (Verified Allergy, Unknown, 04/05/16) TOMATO (Verified Allergy, Unknown, 04/05/16) Medication History Scheduled Pantoprazole* (Pantoprazole*), 40 MG ORAL DAILY, (Reported) Patient History Healthcare decision maker Resuscitation status Full Code Advanced Directive on File Yes Past Medical/Surgical History Past Medical/Surgical History: (1) Partial small bowel obstruction (2) Paget disease of bone (3) Bronchitis (4) GERD (gastroesophageal reflux disease) (5) Gastritis (6) Chronic epigastric pain Review of Systems Constitutional: Reports: see HPI ENT: Reports: hearing loss - bilat hearing aid Respiratory: Reports: no symptoms Cardiovascular: Reports: no symptoms Gastrointestinal: Reports: see HPI Genitourinary: Reports: no symptoms Musculoskeletal: Reports: other - Paget s disease L femur Psychiatric: Reports: no symptoms Endocrine: Reports: no symptoms Physical Exam General Appearance: WD/WN, no apparent distress, alert Lines, tubes and drains: peripheral HEENT: normocephalic, atraumatic, anicteric, PERRL Neck: non-tender, supple Respiratory/Chest: chest wall non-tender, lungs clear, no respiratory distress , no accessory muscle use Cardiovascular/Chest: normal rate Abdomen: normal bowel sounds, non tender, soft Extremities: normal range of motion, non-tender Skin Exam: warm/dry Neurologic: no motor/sensory deficits, alert, oriented x 3, responsive Musculoskeletal: normal muscle bulk Last 24 Hour Vital Signs Date Time Temp Pulse Resp B/P (MAP) Pulse Ox O2 Delivery O2 Flow Rate FiO2 10/04/17 08:00 97.2 75 20 100/60 98 97.2 10/04/17 04:38 Room Air 10/04/17 04:37 98.0 82 18 110/60 97 98.0 10/04/17 00:05 97.0 71 19 105/61 96 97.0 10/04/17 00:05 Room Air 10/03/17 20:25 Room Air 10/03/17 20:25 97.7 87 17 126/66 95 97.7 10/03/17 16:00 97.6 84 20 121/70 98 97.6 10/03/17 16:00 97.6 84 20 121/70 98 Room Air 97.6 10/03/17 14:51 97.8 90 12 136/69 95 Room Air 97.8 10/03/17 14:35 97.8 85 18 137/75 98 Room Air 97.8 10/03/17 14:00 90 12 136/69 95 Room Air 10/03/17 13:57 97.8 78 18 138/87 99 Room Air 97.8 10/03/17 12:51 97.7 10/03/17 12:22 97.7 Intake and Output 10/03/17 10/04/17 19:00 07:00 Intake Total 325 ml 1380 ml Output Total 80 ml Balance 245 ml 1380 ml Intake Oral 480 ml IV Total 325 ml 900 ml Output Urine Total 80 ml # Voids 1 1 Laboratory Tests Test 10/04/17 06:47 White Blood Count 7.1 K/UL (4.8-10.8) Red Blood Count 4.42 M/UL (4.20-5.40) Hemoglobin 12.3 G/DL (12.0-16.0) Hematocrit 37.8 % (37.0-47.0) Mean Corpuscular Volume 85 FL (80-99) Mean Corpuscular Hemoglobin 27.8 PG (27.0-31.0) Mean Corpuscular Hemoglobin Concent 32.5 G/DL (32.0-36.0) Red Cell Distribution Width 14.3 % (11.6-14.8) Platelet Count 180 K/UL (150-450) Mean Platelet Volume 8.9 FL (6.5-10.1) Neutrophils (%) (Auto) 75.1 % (45.0-75.0) H Lymphocytes (%) (Auto) 14.7 % (20.0-45.0) L Monocytes (%) (Auto) 8.1 % (1.0-10.0) Eosinophils (%) (Auto) 1.6 % (0.0-3.0) Basophils (%) (Auto) 0.4 % (0.0-2.0) Erythrocyte Sedimentation Rate 15 MM/HR (0-30) Sodium Level 141 MMOL/L (136-145) Potassium Level 4.1 MMOL/L (3.5-5.1) Chloride Level 105 MMOL/L (98-107) Carbon Dioxide Level 29 MMOL/L (21-32) Anion Gap 7 mmol/L (5-15) Blood Urea Nitrogen 15 mg/dL (7-18) Creatinine 0.7 MG/DL (0.55-1.30) Estimat Glomerular Filtration Rate mL/min (>60) Glucose Level 92 MG/DL (74-106) Calcium Level 9.0 MG/DL (8.5-10.1) Phosphorus Level 3.8 MG/DL (2.5-4.9) Magnesium Level 2.3 MG/DL (1.8-2.4) Total Bilirubin 1.2 MG/DL (0.2-1.0) H Direct Bilirubin 0.2 MG/DL (0.0-0.3) Aspartate Amino Transf (AST/SGOT) 23 U/L (15-37) Alanine Aminotransferase (ALT/SGPT) 28 U/L (12-78) Alkaline Phosphatase 135 U/L (46-116) H C-Reactive Protein, Quantitative 4.8 mg/dL (0.00-0.90) H Total Protein 6.5 G/DL (6.4-8.2) Albumin 3.2 G/DL (3.4-5.0) L Globulin 3.3 g/dL Albumin/Globulin Ratio 1.0 (1.0-2.7) Amylase Level 75 U/L (25-115) Lipase 95 U/L (73-393) Height (Feet): 5 Height (Inches): 2.00 Weight (Pounds): 160 Medications Current Medications Medications (Trade) Dose Ordered Sig/Radha Route PRN Reason Start Time Stop Time Status Last Admin Dose Admin Acetaminophen (Tylenol) 650 mg Q6H PRN ORAL Mild Pain/Temp > 100.5 10/03/17 15:08 11/02/17 15:07 Dextrose/ Electrolytes 1,000 ml @ 75 mls/hr [id number] IV 10/03/17 16:00 11/02/17 15:59 10/04/17 05:02 Famotidine (Pepcid I.v.) 20 mg QHS IVP 10/03/17 21:00 11/02/17 20:59 10/03/17 20:26 Iopamidol (Isovue-300 100ml) 100 ml NOW PRN INJ Radiology Procedure 10/03/17 11:15 Morphine Sulfate (Morphine Sulfate) 2 mg Q4H PRN IV Moderate Pain (Pain Scale 4-6) 10/03/17 15:08 10/10/17 15:07 Morphine Sulfate (Morphine Sulfate) 4 mg Q4H PRN IV Severe Pain (Pain Scale 7-10) 10/03/17 15:08 10/10/17 15:07 10/03/17 15:47 Ondansetron HCl (Zofran) 4 mg Q6H PRN IV Nausea & Vomiting 10/03/17 15:08 11/02/17 15:07 Patient Own Medication (Patient's Own Med) 1 ea DAILY ORAL 10/04/17 13:00 11/03/17 12:59 Assessment/Plan Assessment/Plan ASSESSMENT Abdominal pain probable food poisoning versus gastroenteritis possible dehydration ( due to vomiting) Hypertension Gastritis GERD Chronic epigastric pain PLAN OF CARE MedSurg floor IV fluids Clear liquid diet and advanced as tolerated antiemetics as needed GI prophylaxis Pain management as needed , currently pain free Monitor blood pressure , currently stable Discharge soon case discussed and evaluated by supervising physician Sanjuana Ferreira NP October 04, 2017 12:14
--- NOTE | 2017-10-04 13:02 | History and Physical Report ---
DATE OF ADMISSION: 10/03/2017 CHIEF COMPLAINT: Abdominal pain, nausea, vomiting. HISTORY OF PRESENT ILLNESS: This is a 72-year-old, very delightful, female with past medical history for severe gastritis as well as hiatal hernia, history of Paget's disease of the bone, who presented to the hospital complaining about abdominal pain associated with nausea, vomiting, started 2 days before prior to admission. She stated that the pain because progressive worsening, nausea, vomiting was to the point that she was not able to tolerate oral intake. She tried to write it off initially however symptoms got worse. Current symptoms are as she had before and she decided come to the emergency room. Shortly after initial evaluation in the emergency, the patient was admitted to the hospital with abdominal pain, nausea, and vomiting possibly due to the gastritis. PAST MEDICAL HISTORY AND PAST SURGICAL HISTORY: As above. History of gastritis as well as GERD, hiatal hernia, Paget's disease of the bone. Denies any history of diabetes. The patient has borderline hypertension, but no need for medication, controlled with diet. HOME MEDICATIONS: She takes Nexium 40 mg daily as well as [id number] multivitamin. ALLERGIES: Allergy to broccoli, ibuprofen, lactose, , onion, orange juice, and tomatoes. SOCIAL HISTORY: Denies any tobacco, alcohol, or drugs. FAMILY HISTORY: Noncontributory. REVIEW OF SYSTEMS: Mostly as above. Denies any dysuria, frequency, or hematuria. Denies any hemoptysis or hematochezia. Denies any bright red blood per rectum. Denies any loss of consciousness. Denies any double vision. Complained of abdominal pain, cramps. Complained about the nausea and vomiting. Denies any diarrhea. Denies any seizure activity. PHYSICAL EXAMINATION: VITAL SIGNS: On admission, temperature 97.7, pulse of 82, respiration of 18, and blood pressure 149/81. GENERAL: Patient is awake, responsive, in no acute distress. HEAD AND NECK: Pupils are equal and reactive to light. Extraocular movements intact. Neck was supple. No JVD. LUNGS: Clear. No wheezing or rales. HEART: S1, S2. Regular rhythm. No gallops. ABDOMEN: Soft, nondistended, tender to deep palpation. No rebound tenderness. No fluid shift. EXTREMITIES: No cyanosis, clubbing, or edema. NEUROLOGIC: Cranial nerves II through XII are grossly intact. Motor is 5/5 in all extremities. LABORATORY AND DIAGNOSTIC DATA: Laboratory on admission, WBC of 4.9, hemoglobin of 13, hematocrit of 43, and platelet is 207. Sodium 139, potassium 4.3, chloride is 102, bicarb 27, BUN 18, creatinine 0.7, glucose is 107, calcium is 10.0, alkaline phosphatase is 168. Troponin 0.017. PT of 9.9, INR 0.9, PTT of 24. Urinalysis, +2 leukocytes otherwise negative ketones, negative nitrite, and 3 to 4 WBC. ASSESSMENT: 1. Abdominal pain, nausea, vomiting, possibly due to the gastritis and gastroesophageal reflux disease. 2. Paget's disease of the bone. 3. Hiatal hernia. PLAN: Admit the patient to Med/Surg. We will follow up laboratory. Clear liquid diet. Advance as tolerated. We will follow up with gastroenterology. Code status is Full Code. DVT prophylaxis with heparin subcutaneous. Resume home medication. Discussed with the patient extensively the plan of care and the daughter. Silvino Calvillo M.D. DR: KEVIN JOB#: [id number] CC:
[2017-10-04] MEDS ORDERED: Miralax 17gm pkt ORAL PRN (13:30)
--- NOTE | 2017-10-04 14:36 | Internal Med Progress Note ---
Subjective Date of Service: October 04, 2017 Physician Name Angus Brooks Attending Physician Silvino Calvillo MD Current Medications Medications (Trade) Dose Ordered Sig/Radha Route PRN Reason Start Time Stop Time Status Last Admin Dose Admin Acetaminophen (Tylenol) 650 mg Q6H PRN ORAL Mild Pain/Temp > 100.5 10/03/17 15:08 11/02/17 15:07 Dextrose/ Electrolytes 1,000 ml @ 75 mls/hr [id number] IV 10/03/17 16:00 11/02/17 15:59 10/04/17 05:02 Docusate Sodium (Colace) 100 mg TWICE A DAY ORAL 10/04/17 18:00 11/03/17 17:59 Famotidine (Pepcid I.v.) 20 mg QHS IVP 10/03/17 21:00 11/02/17 20:59 10/03/17 20:26 Iopamidol (Isovue-300 100ml) 100 ml NOW PRN INJ Radiology Procedure 10/03/17 11:15 Morphine Sulfate (Morphine Sulfate) 2 mg Q4H PRN IV Moderate Pain (Pain Scale 4-6) 10/03/17 15:08 10/10/17 15:07 Morphine Sulfate (Morphine Sulfate) 4 mg Q4H PRN IV Severe Pain (Pain Scale 7-10) 10/03/17 15:08 10/10/17 15:07 10/03/17 15:47 Ondansetron HCl (Zofran) 4 mg Q6H PRN IV Nausea & Vomiting 10/03/17 15:08 11/02/17 15:07 Patient Own Medication (Patient's Own Med) 1 ea DAILY ORAL 10/04/17 13:00 11/03/17 12:59 10/04/17 12:06 Polyethylene Glycol (Miralax) 17 gm DAILYPRN PRN ORAL Constipation 10/04/17 13:30 11/03/17 13:29 10/04/17 13:57 Allergies: Coded Allergies: Broccoli (Verified Allergy, Unknown, 04/05/16) IBUPROFEN (Verified Allergy, Unknown, 12/19/08) LACTOSE (Verified Allergy, Unknown, 12/10/15) Lactose intolerant MILK (Verified Allergy, Unknown, 08/15/11) ONION (Verified Allergy, Unknown, 04/05/16) ORANGE JUICE (Verified Allergy, Unknown, 04/05/16) TOMATO (Verified Allergy, Unknown, 04/05/16) ROS Limited/Unobtainable: No Constitutional: Reports: no symptoms HEENT: Reports: no symptoms Cardiovascular: Reports: no symptoms Respiratory: Reports: no symptoms Gastrointestinal/Abdominal: Reports: abdominal pain, nausea, vomiting Genitourinary: Reports: no symptoms Neurologic/Psychiatric: Reports: no symptoms Subjective 72 YO F admitted with abdominal pain, nausea and vomiting. Cover for [facility]- Dr Calvillo. Objective Last Vital Signs Date Time Temp Pulse Resp B/P (MAP) Pulse Ox O2 Delivery O2 Flow Rate FiO2 10/04/17 12:00 97.7 86 13 124/71 98 97.7 10/04/17 04:38 Room Air Laboratory Tests Test 10/04/17 06:47 White Blood Count 7.1 K/UL (4.8-10.8) Red Blood Count 4.42 M/UL (4.20-5.40) Hemoglobin 12.3 G/DL (12.0-16.0) Hematocrit 37.8 % (37.0-47.0) Mean Corpuscular Volume 85 FL (80-99) Mean Corpuscular Hemoglobin 27.8 PG (27.0-31.0) Mean Corpuscular Hemoglobin Concent 32.5 G/DL (32.0-36.0) Red Cell Distribution Width 14.3 % (11.6-14.8) Platelet Count 180 K/UL (150-450) Mean Platelet Volume 8.9 FL (6.5-10.1) Neutrophils (%) (Auto) 75.1 % (45.0-75.0) H Lymphocytes (%) (Auto) 14.7 % (20.0-45.0) L Monocytes (%) (Auto) 8.1 % (1.0-10.0) Eosinophils (%) (Auto) 1.6 % (0.0-3.0) Basophils (%) (Auto) 0.4 % (0.0-2.0) Erythrocyte Sedimentation Rate 15 MM/HR (0-30) Sodium Level 141 MMOL/L (136-145) Potassium Level 4.1 MMOL/L (3.5-5.1) Chloride Level 105 MMOL/L (98-107) Carbon Dioxide Level 29 MMOL/L (21-32) Anion Gap 7 mmol/L (5-15) Blood Urea Nitrogen 15 mg/dL (7-18) Creatinine 0.7 MG/DL (0.55-1.30) Estimat Glomerular Filtration Rate mL/min (>60) Glucose Level 92 MG/DL (74-106) Calcium Level 9.0 MG/DL (8.5-10.1) Phosphorus Level 3.8 MG/DL (2.5-4.9) Magnesium Level 2.3 MG/DL (1.8-2.4) Total Bilirubin 1.2 MG/DL (0.2-1.0) H Direct Bilirubin 0.2 MG/DL (0.0-0.3) Aspartate Amino Transf (AST/SGOT) 23 U/L (15-37) Alanine Aminotransferase (ALT/SGPT) 28 U/L (12-78) Alkaline Phosphatase 135 U/L (46-116) H C-Reactive Protein, Quantitative 4.8 mg/dL (0.00-0.90) H Total Protein 6.5 G/DL (6.4-8.2) Albumin 3.2 G/DL (3.4-5.0) L Globulin 3.3 g/dL Albumin/Globulin Ratio 1.0 (1.0-2.7) Amylase Level 75 U/L (25-115) Lipase 95 U/L (73-393) Intake and Output 10/03/17 10/04/17 19:00 07:00 Intake Total 325 ml 1380 ml Output Total 80 ml Balance 245 ml 1380 ml Intake Oral 480 ml IV Total 325 ml 900 ml Output Urine Total 80 ml # Voids 1 1 Objective GENERAL: Patient is awake, responsive, in no acute distress. HEAD AND NECK: Pupils are equal and reactive to light. Extraocular movements intact. Neck was supple. No JVD. LUNGS: Clear. No wheezing or rales. HEART: S1, S2. Regular rhythm. No gallops. ABDOMEN: Soft, nondistended, tender to deep palpation. No rebound tenderness. No fluid shift. EXTREMITIES: No cyanosis, clubbing, or edema. NEUROLOGIC: Cranial nerves II through XII are grossly intact. Motor is 5/5 in all extremities. Assessment/Plan Assessment/Plan ASSESSMENT: 1. Abdominal pain, nausea, vomiting, possibly due to the gastritis and gastroesophageal reflux disease. 2. Paget's disease of the bone. 3. Hiatal hernia 4. Gastritis 5. hypertension PLAN: Admit the patient to Med/Surg. We will follow up laboratory. Clear liquid diet. Advance as tolerated. We will follow up with gastroenterology. Code status is Full Code. DVT prophylaxis with heparin subcutaneous. Resume home medication. Discussed with the patient extensively the plan of care and the daughter. Angus Brooks MD October 04, 2017 14:36
[2017-10-04 16:00] VITALS: BP 100/61
[2017-10-04] MEDS: Docusate 100mg cap ORAL SCH (17:05)
--- NOTE | 2017-10-04 17:16 | Consultation ---
DATE OF CONSULTATION: CHIEF COMPLAINT: Abdominal pain. HISTORY OF PRESENT ILLNESS: This is a very pleasant 72-year-old female known to me from office visits for chronic acid reflux disease. She was admitted to the hospital at this time for different reason. She said she had some fish in a restaurant, [employer], and thinks the fish was not good because she started having significant vomiting, abdominal pain, and chest pain after that, but no diarrhea hence she was admitted to the hospital for that. PAST MEDICAL HISTORY: 1. Patient history of chronic acid reflux disease, on Nexium. 2. Gastritis. 3. Paget's disease. 4. Osteoarthritis. ALLERGIES: Allergies to ibuprofen, milk lactose. MEDICATIONS: Please see medication reconciliation list, but mainly she is on Nexium and Flonase. SOCIAL HISTORY: The patient denies any tobacco, alcohol, or drug abuse. FAMILY HISTORY: Noncontributory. REVIEW OF SYSTEMS: A 10-point review of systems was performed and pertinent positives in history of present illness. PHYSICAL EXAMINATION: VITAL SIGNS: Temperature 97.2, pulse 75, respirations 20, and blood pressure is 100/60. HEENT: Normocephalic and atraumatic. Sclerae anicteric. NECK: Supple. No obvious lymphadenopathy. CARDIOVASCULAR: Regular rhythm. Plus S1 and S2. No obvious murmur. LUNGS: Clear to auscultation bilaterally. ABDOMEN: Positive bowel sounds. Soft, nontender. No rebound. No guarding. No peritoneal sign. EXTREMITIES: No cyanosis, no clubbing, no edema. NEUROLOGIC: Nonfocal. LABORATORY DATA: White count 7.1, hemoglobin 12, hematocrit 37, platelet count is 180. Chem 7 grossly normal. ASSESSMENT AND PLAN: This is a 72-year-old female admitted to hospital with sign and symptoms more suggestive of food poisoning and is getting better. Plan will be to advance her diet. Monitor her labs. Continue on home medication, hold off on giving any antibiotics at this time. The patient possibly can be discharged tomorrow if she is stable. Patrick Zheng M.D. DR: ROBSON JOB#: [id number] CC:
[2017-10-04 20:10] VITALS: BP 110/72
--- NOTE | 2017-10-04 22:49 | Consultation ---
History of Present Illness General Date patient seen: October 04, 2017 Chief Complaint: Abdominal Pain Referring physician: dr Calvillo Reason for Consultation: in hosp management, Present Illness HPI 72-year-old, female with past medical history for anxiety, severe gastritis as well as hiatal hernia, history of Paget's disease of the bone, who presented to the hospital complaining about abdominal pain associated with nausea, vomiting. the pt is stable however has anxiety. no si/hi. no psychotic sxs. Allergies: Coded Allergies: Broccoli (Verified Allergy, Unknown, 04/05/16) IBUPROFEN (Verified Allergy, Unknown, 12/19/08) LACTOSE (Verified Allergy, Unknown, 12/10/15) Lactose intolerant MILK (Verified Allergy, Unknown, 08/15/11) ONION (Verified Allergy, Unknown, 04/05/16) ORANGE JUICE (Verified Allergy, Unknown, 04/05/16) TOMATO (Verified Allergy, Unknown, 04/05/16) Medication History Scheduled Pantoprazole* (Pantoprazole*), 40 MG ORAL DAILY, (Reported) Patient History Limited by: medical condition History Provided By: Patient, Significant Other, PMD Healthcare decision maker Resuscitation status Full Code Advanced Directive on File Yes Past Medical/Surgical History Past Medical/Surgical History: (1) Rash and other nonspecific skin eruption (2) Rash and other nonspecific skin eruption (3) SBO (small bowel obstruction) (4) GI (gastrointestinal bleed) (5) SBO (small bowel obstruction) (6) Osteoarthritis of lumbar spine (7) Tachycardia (8) SBO (small bowel obstruction) (9) Nausea & vomiting (10) SBO (small bowel obstruction) (11) Rhinitis (12) Pleuritic chest pain (13) Hiatal hernia (14) Vomiting (15) Intractable pain (16) Gastritis (17) Paget disease of bone (18) GERD (gastroesophageal reflux disease) (19) Bronchitis (20) Partial small bowel obstruction (21) Chronic epigastric pain (22) Gastroenteritis (23) small bowel obstruction (24) Upper respiratory disease (25) Cough (26) Dyspnea (27) Constipation (28) Abdominal pain (29) Gastritis (30) Chest pain (31) ACS (acute coronary syndrome) (32) GERD (gastroesophageal reflux disease) (33) Hyperlipemia Review of Systems Psychiatric: Reports: prior hx, anxiety, depressed feelings, emotional problems Physical Exam General Appearance: WD/WN, no apparent distress, alert Neurologic: oriented x 3, responsive, normal mood/affect Last 24 Hour Vital Signs Date Time Temp Pulse Resp B/P (MAP) Pulse Ox O2 Delivery O2 Flow Rate FiO2 10/04/17 20:10 98.4 66 20 110/72 99 Room Air 98.4 10/04/17 20:10 Room Air 10/04/17 16:00 98.0 64 20 100/61 98 98.0 10/04/17 12:00 97.7 86 13 124/71 98 97.7 10/04/17 08:00 97.2 75 20 100/60 98 97.2 10/04/17 04:38 Room Air 10/04/17 04:37 98.0 82 18 110/60 97 98.0 10/04/17 00:05 97.0 71 19 105/61 96 97.0 10/04/17 00:05 Room Air Intake and Output 10/03/17 10/04/17 19:00 07:00 Intake Total 325 ml 1380 ml Output Total 80 ml Balance 245 ml 1380 ml Intake Oral 480 ml IV Total 325 ml 900 ml Output Urine Total 80 ml # Voids 1 1 Laboratory Tests Test 10/04/17 06:47 White Blood Count 7.1 K/UL (4.8-10.8) Red Blood Count 4.42 M/UL (4.20-5.40) Hemoglobin 12.3 G/DL (12.0-16.0) Hematocrit 37.8 % (37.0-47.0) Mean Corpuscular Volume 85 FL (80-99) Mean Corpuscular Hemoglobin 27.8 PG (27.0-31.0) Mean Corpuscular Hemoglobin Concent 32.5 G/DL (32.0-36.0) Red Cell Distribution Width 14.3 % (11.6-14.8) Platelet Count 180 K/UL (150-450) Mean Platelet Volume 8.9 FL (6.5-10.1) Neutrophils (%) (Auto) 75.1 % (45.0-75.0) H Lymphocytes (%) (Auto) 14.7 % (20.0-45.0) L Monocytes (%) (Auto) 8.1 % (1.0-10.0) Eosinophils (%) (Auto) 1.6 % (0.0-3.0) Basophils (%) (Auto) 0.4 % (0.0-2.0) Erythrocyte Sedimentation Rate 15 MM/HR (0-30) Sodium Level 141 MMOL/L (136-145) Potassium Level 4.1 MMOL/L (3.5-5.1) Chloride Level 105 MMOL/L (98-107) Carbon Dioxide Level 29 MMOL/L (21-32) Anion Gap 7 mmol/L (5-15) Blood Urea Nitrogen 15 mg/dL (7-18) Creatinine 0.7 MG/DL (0.55-1.30) Estimat Glomerular Filtration Rate mL/min (>60) Glucose Level 92 MG/DL (74-106) Calcium Level 9.0 MG/DL (8.5-10.1) Phosphorus Level 3.8 MG/DL (2.5-4.9) Magnesium Level 2.3 MG/DL (1.8-2.4) Total Bilirubin 1.2 MG/DL (0.2-1.0) H Direct Bilirubin 0.2 MG/DL (0.0-0.3) Aspartate Amino Transf (AST/SGOT) 23 U/L (15-37) Alanine Aminotransferase (ALT/SGPT) 28 U/L (12-78) Alkaline Phosphatase 135 U/L (46-116) H C-Reactive Protein, Quantitative 4.8 mg/dL (0.00-0.90) H Total Protein 6.5 G/DL (6.4-8.2) Albumin 3.2 G/DL (3.4-5.0) L Globulin 3.3 g/dL Albumin/Globulin Ratio 1.0 (1.0-2.7) Amylase Level 75 U/L (25-115) Lipase 95 U/L (73-393) Height (Feet): 5 Height (Inches): 2.00 Weight (Pounds): 160 Medications Current Medications Medications (Trade) Dose Ordered Sig/Radha Route PRN Reason Start Time Stop Time Status Last Admin Dose Admin Acetaminophen (Tylenol) 650 mg Q6H PRN ORAL Mild Pain/Temp > 100.5 10/03/17 15:08 11/02/17 15:07 Dextrose/ Electrolytes 1,000 ml @ 75 mls/hr [id number] IV 10/03/17 16:00 11/02/17 15:59 10/04/17 05:02 Docusate Sodium (Colace) 100 mg TWICE A DAY ORAL 10/04/17 18:00 11/03/17 17:59 10/04/17 17:05 Famotidine (Pepcid I.v.) 20 mg QHS IVP 10/03/17 21:00 11/02/17 20:59 10/04/17 21:33 Iopamidol (Isovue-300 100ml) 100 ml NOW PRN INJ Radiology Procedure 10/03/17 11:15 Morphine Sulfate (Morphine Sulfate) 2 mg Q4H PRN IV Moderate Pain (Pain Scale 4-6) 10/03/17 15:08 10/10/17 15:07 Morphine Sulfate (Morphine Sulfate) 4 mg Q4H PRN IV Severe Pain (Pain Scale 7-10) 10/03/17 15:08 10/10/17 15:07 10/03/17 15:47 Ondansetron HCl (Zofran) 4 mg Q6H PRN IV Nausea & Vomiting 10/03/17 15:08 11/02/17 15:07 Patient Own Medication (Patient's Own Med) 1 ea DAILY ORAL 10/04/17 13:00 11/03/17 12:59 10/04/17 12:06 Polyethylene Glycol (Miralax) 17 gm DAILYPRN PRN ORAL Constipation 10/04/17 13:30 11/03/17 13:29 10/04/17 13:57 Assessment/Plan Status: stable, progressing Assessment/Plan anxiety d/o Ativan 1mg po q 6hr/ anxiety Darnell Zuniga M.D. October 04, 2017 22:49
[2017-10-05 00:53] VITALS: BP 104/64
[2017-10-05] MEDS: D5 1/2NS w/KCl 20mEq 1,000 ML IV SCH (03:06)
[2017-10-05 04:00] VITALS: BP 122/60
[2017-10-05 08:00] VITALS: BP 116/65
[2017-10-05] MEDS: NEXIUM 40 MG ORAL SCH (08:02)
[2017-10-05] MEDS: Docusate 100mg cap ORAL SCH (08:03)
[2017-10-05 08:42] LABS: BASOPHILS % (AUTO) 0.9 % (0.0-2.0); EOSINOPHILS % (AUTO) 2.6 % (0.0-3.0); HEMATOCRIT 40.6 % (37.0-47.0); HEMOGLOBIN 13.5 G/DL (12.0-16.0); LYMPHOCYTES % (AUTO) 37.1 % (20.0-45.0); MEAN CORPUSCULAR VOLUME 86 FL (80-99); MONOCYTES % (AUTO) 9.1 % (1.0-10.0); NEUTROPHILS % (AUTO) 50.3 % (45.0-75.0); PLATELET COUNT 190 K/UL (150-450); RED BLOOD COUNT 4.73 M/UL (4.20-5.40); RED CELL DISTRIBUTION WIDTH 14.5 % (11.6-14.8)
[2017-10-05 08:58] LABS: ANION GAP 7 mmol/L (5-15); BLOOD UREA NITROGEN 18 mg/dL (7-18); CALCIUM 9.7 MG/DL (8.5-10.1); CARBON DIOXIDE 29 MMOL/L (21-32); CHLORIDE 105 MMOL/L (98-107); CREATININE 0.8 MG/DL (0.55-1.30); SODIUM 141 MMOL/L (136-145)
--- NOTE | 2017-10-05 09:43 | General Progress Note ---
Assessment/Plan Problem List: (1) GERD (gastroesophageal reflux disease) ICD Codes: K21.9 - GERD (gastroesophageal reflux disease) SNOMED: 487262098 (2) Gastritis (3) Constipation ICD Codes: K59.00 - Constipation SNOMED: 01049612 (4) Gastroenteritis ICD Codes: K52.9 - Noninfective gastroenteritis and colitis, unspecified SNOMED: 14892635 Assessment/Plan doing better ppi daily stable labs Subjective ROS Limited/Unobtainable: Yes Allergies: Coded Allergies: Broccoli (Verified Allergy, Unknown, 04/05/16) IBUPROFEN (Verified Allergy, Unknown, 12/19/08) LACTOSE (Verified Allergy, Unknown, 12/10/15) Lactose intolerant MILK (Verified Allergy, Unknown, 08/15/11) ONION (Verified Allergy, Unknown, 04/05/16) ORANGE JUICE (Verified Allergy, Unknown, 04/05/16) TOMATO (Verified Allergy, Unknown, 04/05/16) Subjective feeling better Objective Last 24 Hour Vital Signs Date Time Temp Pulse Resp B/P (MAP) Pulse Ox O2 Delivery O2 Flow Rate FiO2 10/05/17 08:00 97.7 70 19 116/65 100 97.7 10/05/17 04:00 98.1 75 20 122/60 100 Room Air 98.1 10/05/17 00:53 98.0 87 20 104/64 98 Room Air 98.0 10/04/17 20:10 98.4 66 20 110/72 99 Room Air 98.4 10/04/17 20:10 Room Air 10/04/17 16:00 98.0 64 20 100/61 98 98.0 10/04/17 12:00 97.7 86 13 124/71 98 97.7 Intake and Output 10/04/17 10/05/17 19:00 07:00 Intake Total 775 ml 1275 ml Balance 775 ml 1275 ml Intake Oral 400 ml 600 ml IV Total 375 ml 675 ml # Voids 3 3 Laboratory Tests 10/05/17 07:00: White Blood Count 4.0L, Red Blood Count 4.73, Hemoglobin 13.5, Hematocrit 40.6, Mean Corpuscular Volume 86, Mean Corpuscular Hemoglobin 28.5, Mean Corpuscular Hemoglobin Concent 33.2, Red Cell Distribution Width 14.5, Platelet Count 190, Mean Platelet Volume 9.1, Neutrophils (%) (Auto) 50.3, Lymphocytes (%) (Auto) 37.1, Monocytes (%) (Auto) 9.1, Eosinophils (%) (Auto) 2.6, Basophils (%) (Auto ) 0.9, Sodium Level 141, Potassium Level 4.0, Chloride Level 105, Carbon Dioxide Level 29, Anion Gap 7, Blood Urea Nitrogen 18, Creatinine 0.8, Estimat Glomerular Filtration Rate , Glucose Level 86, Calcium Level 9.7 Height (Feet): 5 Height (Inches): 2.00 Weight (Pounds): 160 General Appearance: alert EENT: normal ENT inspection Neck: supple Cardiovascular: normal rate Respiratory/Chest: lungs clear Abdomen: normal bowel sounds, non tender, soft Extremities: non-tender Patrick Zheng MD October 05, 2017 09:43
--- NOTE | 2017-10-05 11:20 | Pulmonology Progress Note ---
Assessment/Plan Assessment/Plan ASSESSMENT Abdominal pain probable food poisoning versus gastroenteritis possible dehydration ( due to vomiting) Hypertension Gastritis GERD Chronic epigastric pain PLAN OF CARE MedSurg floor IV fluids tolerating diet, constipating bowel regimen GI follows antiemetics as needed GI prophylaxis Pain management as needed , currently pain free Monitor blood pressure , currently stable Discharge soon, possibly today -per PMD case discussed and evaluated by supervising physician Subjective Allergies: Coded Allergies: Broccoli (Verified Allergy, Unknown, 04/05/16) IBUPROFEN (Verified Allergy, Unknown, 12/19/08) LACTOSE (Verified Allergy, Unknown, 12/10/15) Lactose intolerant MILK (Verified Allergy, Unknown, 08/15/11) ONION (Verified Allergy, Unknown, 04/05/16) ORANGE JUICE (Verified Allergy, Unknown, 04/05/16) TOMATO (Verified Allergy, Unknown, 04/05/16) Subjective tolerates diet, pain controlled, constipating no n/v/ Objective Last 24 Hour Vital Signs Date Time Temp Pulse Resp B/P (MAP) Pulse Ox O2 Delivery O2 Flow Rate FiO2 10/05/17 08:00 97.7 70 19 116/65 100 97.7 10/05/17 04:00 98.1 75 20 122/60 100 Room Air 98.1 10/05/17 00:53 98.0 87 20 104/64 98 Room Air 98.0 10/04/17 20:10 98.4 66 20 110/72 99 Room Air 98.4 10/04/17 20:10 Room Air 10/04/17 16:00 98.0 64 20 100/61 98 98.0 10/04/17 12:00 97.7 86 13 124/71 98 97.7 Intake and Output 10/04/17 10/05/17 19:00 07:00 Intake Total 775 ml 1275 ml Balance 775 ml 1275 ml Intake Oral 400 ml 600 ml IV Total 375 ml 675 ml # Voids 3 3 Objective General Appearance: WD/WN, no apparent distress, alert Lines, tubes and drains: peripheral HEENT: normocephalic, atraumatic, anicteric, PERRL Neck: non-tender, supple Respiratory/Chest: chest wall non-tender, lungs clear, no respiratory distress , no accessory muscle use Cardiovascular/Chest: normal rate Abdomen: normal bowel sounds, non tender, soft Extremities: normal range of motion, non-tender Skin Exam: warm/dry Neurologic: no motor/sensory deficits, alert, oriented x 3, responsive Musculoskeletal: normal muscle bulk Laboratory Tests 10/05/17 07:00: White Blood Count 4.0L, Red Blood Count 4.73, Hemoglobin 13.5, Hematocrit 40.6, Mean Corpuscular Volume 86, Mean Corpuscular Hemoglobin 28.5, Mean Corpuscular Hemoglobin Concent 33.2, Red Cell Distribution Width 14.5, Platelet Count 190, Mean Platelet Volume 9.1, Neutrophils (%) (Auto) 50.3, Lymphocytes (%) (Auto) 37.1, Monocytes (%) (Auto) 9.1, Eosinophils (%) (Auto) 2.6, Basophils (%) (Auto ) 0.9, Sodium Level 141, Potassium Level 4.0, Chloride Level 105, Carbon Dioxide Level 29, Anion Gap 7, Blood Urea Nitrogen 18, Creatinine 0.8, Estimat Glomerular Filtration Rate , Glucose Level 86, Calcium Level 9.7 Current Medications Medications (Trade) Dose Ordered Sig/Radha Route PRN Reason Start Time Stop Time Status Last Admin Dose Admin Acetaminophen (Tylenol) 650 mg Q6H PRN ORAL Mild Pain/Temp > 100.5 10/03/17 15:08 11/02/17 15:07 Dextrose/ Electrolytes 1,000 ml @ 75 mls/hr [id number] IV 10/03/17 16:00 11/02/17 15:59 10/05/17 03:06 Docusate Sodium (Colace) 100 mg TWICE A DAY ORAL 10/04/17 18:00 11/03/17 17:59 10/05/17 08:03 Famotidine (Pepcid I.v.) 20 mg QHS IVP 10/03/17 21:00 11/02/17 20:59 10/04/17 21:33 Iopamidol (Isovue-300 100ml) 100 ml NOW PRN INJ Radiology Procedure 10/03/17 11:15 Morphine Sulfate (Morphine Sulfate) 2 mg Q4H PRN IV Moderate Pain (Pain Scale 4-6) 10/03/17 15:08 10/10/17 15:07 Morphine Sulfate (Morphine Sulfate) 4 mg Q4H PRN IV Severe Pain (Pain Scale 7-10) 10/03/17 15:08 10/10/17 15:07 10/03/17 15:47 Ondansetron HCl (Zofran) 4 mg Q6H PRN IV Nausea & Vomiting 10/03/17 15:08 11/02/17 15:07 Patient Own Medication (Patient's Own Med) 1 ea DAILY ORAL 10/04/17 13:00 11/03/17 12:59 10/05/17 08:02 Polyethylene Glycol (Miralax) 17 gm DAILYPRN PRN ORAL Constipation 10/04/17 13:30 11/03/17 13:29 10/04/17 13:57 Sanjuana Ferreira NP October 05, 2017 11:20
[2017-10-05 11:31] VITALS: BP 126/84
[2017-10-05] MEDS ORDERED: Milk of Magnesia 30ml Ud ORAL ONE (12:20)
--- NOTE | 2017-10-05 14:12 | Internal Med Progress Note ---
Subjective Date of Service: October 05, 2017 Physician Name Angus Brooks Attending Physician Silvino Calvillo MD Current Medications Medications (Trade) Dose Ordered Sig/Radha Route PRN Reason Start Time Stop Time Status Last Admin Dose Admin Acetaminophen (Tylenol) 650 mg Q6H PRN ORAL Mild Pain/Temp > 100.5 10/03/17 15:08 11/02/17 15:07 Dextrose/ Electrolytes 1,000 ml @ 75 mls/hr [id number] IV 10/03/17 16:00 11/02/17 15:59 10/05/17 03:06 Docusate Sodium (Colace) 100 mg TWICE A DAY ORAL 10/04/17 18:00 11/03/17 17:59 10/05/17 08:03 Famotidine (Pepcid I.v.) 20 mg QHS IVP 10/03/17 21:00 11/02/17 20:59 10/04/17 21:33 Iopamidol (Isovue-300 100ml) 100 ml NOW PRN INJ Radiology Procedure 10/03/17 11:15 Morphine Sulfate (Morphine Sulfate) 2 mg Q4H PRN IV Moderate Pain (Pain Scale 4-6) 10/03/17 15:08 10/10/17 15:07 Morphine Sulfate (Morphine Sulfate) 4 mg Q4H PRN IV Severe Pain (Pain Scale 7-10) 10/03/17 15:08 10/10/17 15:07 10/03/17 15:47 Ondansetron HCl (Zofran) 4 mg Q6H PRN IV Nausea & Vomiting 10/03/17 15:08 11/02/17 15:07 Patient Own Medication (Patient's Own Med) 1 ea DAILY ORAL 10/04/17 13:00 11/03/17 12:59 10/05/17 08:02 Polyethylene Glycol (Miralax) 17 gm DAILYPRN PRN ORAL Constipation 10/04/17 13:30 11/03/17 13:29 10/04/17 13:57 Allergies: Coded Allergies: Broccoli (Verified Allergy, Unknown, 04/05/16) IBUPROFEN (Verified Allergy, Unknown, 12/19/08) LACTOSE (Verified Allergy, Unknown, 12/10/15) Lactose intolerant MILK (Verified Allergy, Unknown, 08/15/11) ONION (Verified Allergy, Unknown, 04/05/16) ORANGE JUICE (Verified Allergy, Unknown, 04/05/16) TOMATO (Verified Allergy, Unknown, 04/05/16) ROS Limited/Unobtainable: No Constitutional: Reports: no symptoms HEENT: Reports: no symptoms Cardiovascular: Reports: no symptoms Respiratory: Reports: no symptoms Gastrointestinal/Abdominal: Reports: no symptoms Genitourinary: Reports: no symptoms Neurologic/Psychiatric: Reports: no symptoms Subjective 72 YO F admitted with abdominal pain, nausea and vomiting. Cover for Int Med- Dr Calvillo. Objective Last Vital Signs Date Time Temp Pulse Resp B/P (MAP) Pulse Ox O2 Delivery O2 Flow Rate FiO2 10/05/17 11:31 98.2 66 18 126/84 96 Room Air 98.2 Laboratory Tests Test 10/05/17 07:00 White Blood Count 4.0 K/UL (4.8-10.8) L Red Blood Count 4.73 M/UL (4.20-5.40) Hemoglobin 13.5 G/DL (12.0-16.0) Hematocrit 40.6 % (37.0-47.0) Mean Corpuscular Volume 86 FL (80-99) Mean Corpuscular Hemoglobin 28.5 PG (27.0-31.0) Mean Corpuscular Hemoglobin Concent 33.2 G/DL (32.0-36.0) Red Cell Distribution Width 14.5 % (11.6-14.8) Platelet Count 190 K/UL (150-450) Mean Platelet Volume 9.1 FL (6.5-10.1) Neutrophils (%) (Auto) 50.3 % (45.0-75.0) Lymphocytes (%) (Auto) 37.1 % (20.0-45.0) Monocytes (%) (Auto) 9.1 % (1.0-10.0) Eosinophils (%) (Auto) 2.6 % (0.0-3.0) Basophils (%) (Auto) 0.9 % (0.0-2.0) Sodium Level 141 MMOL/L (136-145) Potassium Level 4.0 MMOL/L (3.5-5.1) Chloride Level 105 MMOL/L (98-107) Carbon Dioxide Level 29 MMOL/L (21-32) Anion Gap 7 mmol/L (5-15) Blood Urea Nitrogen 18 mg/dL (7-18) Creatinine 0.8 MG/DL (0.55-1.30) Estimat Glomerular Filtration Rate mL/min (>60) Glucose Level 86 MG/DL (74-106) Calcium Level 9.7 MG/DL (8.5-10.1) Intake and Output 10/04/17 10/05/17 19:00 07:00 Intake Total 775 ml 1275 ml Balance 775 ml 1275 ml Intake Oral 400 ml 600 ml IV Total 375 ml 675 ml # Voids 3 3 Objective GENERAL: Patient is awake, responsive, in no acute distress. HEAD AND NECK: Pupils are equal and reactive to light. Extraocular movements intact. Neck was supple. No JVD. LUNGS: Clear. No wheezing or rales. HEART: S1, S2. Regular rhythm. No gallops. ABDOMEN: Soft, nondistended, tender to deep palpation. No rebound tenderness. No fluid shift. EXTREMITIES: No cyanosis, clubbing, or edema. NEUROLOGIC: Cranial nerves II through XII are grossly intact. Motor is 5/5 in all extremities. Assessment/Plan Assessment/Plan ASSESSMENT: 1. Abdominal pain, nausea, vomiting, possibly due to the gastritis and gastroesophageal reflux disease. 2. Paget's disease of the bone. 3. Hiatal hernia 4. Gastritis 5. hypertension PLAN: Admit the patient to Med/Surg. We will follow up laboratory. Clear liquid diet. Advance as tolerated. We will follow up with Dr. Zheng gastroenterology. Code status is Full Code. DVT prophylaxis with heparin subcutaneous. Resume home medication. Discussed with the patient extensively the plan of care and the daughter. Angus Brooks MD October 05, 2017 14:12
--- NOTE | 2017-10-06 12:59 | General Progress Note ---
Assessment/Plan Assessment/Plan anxiety d/o Ativan 1mg po q 6hr/ anxiety provided ro/st Subjective Date patient seen: October 05, 2017 Neurologic/Psychiatric: Reports: anxiety, depressed, emotional problems Allergies: Coded Allergies: Broccoli (Verified Allergy, Unknown, 04/05/16) IBUPROFEN (Verified Allergy, Unknown, 12/19/08) LACTOSE (Verified Allergy, Unknown, 12/10/15) Lactose intolerant MILK (Verified Allergy, Unknown, 08/15/11) ONION (Verified Allergy, Unknown, 04/05/16) ORANGE JUICE (Verified Allergy, Unknown, 04/05/16) TOMATO (Verified Allergy, Unknown, 04/05/16) Subjective the pt is doing wells. some anxiety. Objective Height (Feet): 5 Height (Inches): 2.00 Weight (Pounds): 160 General Appearance: WD/WN, no apparent distress, alert Neurologic: alert, oriented x 3, responsive, depressed affect Darnell Zuniga M.D. October 06, 2017 12:59
--- NOTE | 2017-10-06 14:00 | Cardiology Report ---
APPROVED REPORT EKG Measurement Heart [id number] IN 136P52 [id number] Normal sinus rhythm Normal ECG
--- NOTE | 2017-10-07 12:04 | Discharge Summary ---
Discharge Summary Discharge Summary _ DATE OF ADMISSION: 09/20/2017 DATE OF DISCHARGE: 10/05/2017 REASON FOR ADMISSION: 72 years old female with past medical history significant for hypertension, gastritis, GERD, chronic epigastric pain, Paget disease left femur, presented to emergency department complaining of abdominal pain. Pain was described as crampy and colicky, constant,causing significant discomfort. Patient reported nausea and vomiting, but no hematemesis. Patient reported episodes started after eating fish at the restaurant. Patient felt it may be food poisoning. She denied diarrhea. She denied fever or chills. Laboratory workup revealed no leukocytosis. Vital signs showed no fever. Stable electrolytes, LFT and lipase. Troponin was negative. Patient was given Pepcid ,Zofran and analgesics in emergency department and was admitted to medical surgical floor for further management with diagnosis of abdominal pain, possible gastroenteritis CONSULTANTS: pulmonary Dr. Ling GI specialist dr Zheng psychiatrist [place] [employer] [facility] COURSE: Patient was admitted to medical surgical floor. Patient started on the IV fluids. Pain management was addressed, pain was controlled. Antiemetics provided as needed. Patient gradually started on clear liquid diet and was advanced as tolerated. Bowel regimen was instituted. Patient had bowel movement. GI specialist closely followed. Patient started on the GI prophylaxis. No need for antibiotics at this time since patient was afebrile, no leukocytosis , no evidence of infection, no diarrhea. Blood pressure was closely monitored, remained stable. Psychiatrist seen and evaluated the patient, and diagnosed patient with anxiety disorder. Reality orientation and supportive therapy provided . Ativan was on board as needed for anxiety. Patient was able to tolerate diet. Pain resolved. Patient was stable for discharge home FINAL DIAGNOSES: Probable gastroenteritis Abdominal pain due to gastroenteritis, resolved Gastritis Hypertension GERD Chronic epigastric pain Constipation Anxiety disorder Paget disease of the bone DISCHARGE MEDICATIONS: See Medication Reconciliation list. DISCHARGE INSTRUCTIONS: Patient was discharged home. Follow up with the primary care provider next week I have been assigned to dictate discharge summary for this account. I was not involved in the patient's management. Sanjuana Ferreira NP October 07, 2017 12:04
== END 2017-10-05 17:15 | disposition home or self-care (01) | DRG 392 ==
LOC: EMR 11:22 → 4W 13:27 → EDBEDREQ 13:42
DX: K52.9 Noninfective gastroenteritis and colitis, unspecified (principal); K29.70 Gastritis, unspecified, without bleeding; K21.9 Gastro-esophageal reflux disease without esophagitis; I10 Essential (primary) hypertension; Z88.6 Allergy status to analgesic agent; M88.9 Osteitis deformans of unspecified bone; K44.9 Diaphragmatic hernia without obstruction or gangrene; R10.9 Unspecified abdominal pain; G89.29 Other chronic pain; R10.13 Epigastric pain; K59.00 Constipation, unspecified; F41.9 Anxiety disorder, unspecified; M19.90 Unspecified osteoarthritis, unspecified site; E86.0 Dehydration
CPT/HCPCS: 36415; 80048; 80053; 81003; 82150; 82248; 83690; 83735; 84100; 84484; 85025; 85610; 85651; 85730; 86140; 93005; 99285; J2405

== ENCOUNTER 2017-10-15 19:15 | Emergency (ER) | payer MEDICARE, MEDICAID ==
[~2017-10-15] VITALS: Ht 157.5 cm; Wt 71.7 kg
[2017-10-15] MEDS ORDERED: Lidocaine 2% Visc 15ml soln ORAL ONE (19:45)
[2017-10-15] MEDS ORDERED: Morphine Sulfate 4mg/ml Inj IVP ONE (19:45)
[2017-10-15] MEDS ORDERED: Dicyclomine HCl 10mg/5ml oral soln ORAL ONE (19:45)
[2017-10-15] MEDS ORDERED: Mylanta II UD 30ml ORAL ONE (19:45)
[2017-10-15] MEDS ORDERED: Pantoprazole Inj IVP ONE (19:45)
[2017-10-15 20:14] LABS: ANION GAP 11 mmol/L (5-15); BLOOD UREA NITROGEN 9 mg/dL (7-18); CALCIUM 9.8 MG/DL (8.5-10.1); CARBON DIOXIDE 26 MMOL/L (21-32); CHLORIDE 102 MMOL/L (98-107); CREATININE 0.8 MG/DL (0.55-1.30); POTASSIUM 3.4 MMOL/L (3.5-5.1); SODIUM 139 MMOL/L (136-145)
[2017-10-15 20:18] LABS: ALANINE AMINOTRANSFERASE 25 U/L (12-78); ALKALINE PHOSPHATASE 161 U/L (46-116); ASPARTATE AMINO TRANSFERASE 22 U/L (15-37); BILIRUBIN,TOTAL 0.6 MG/DL (0.2-1.0)
[2017-10-15 20:19] LABS: BASOPHILS % (AUTO) 0.9 % (0.0-2.0); EOSINOPHILS % (AUTO) 1.1 % (0.0-3.0); HEMATOCRIT 43.7 % (37.0-47.0); HEMOGLOBIN 14.4 G/DL (12.0-16.0); LYMPHOCYTES % (AUTO) 19.8 % (20.0-45.0); MEAN CORPUSCULAR VOLUME 85 FL (80-99); MONOCYTES % (AUTO) 4.6 % (1.0-10.0); NEUTROPHILS % (AUTO) 73.6 % (45.0-75.0); PLATELET COUNT 220 K/UL (150-450); RED BLOOD COUNT 5.13 M/UL (4.20-5.40); RED CELL DISTRIBUTION WIDTH 14.1 % (11.6-14.8); WHITE BLOOD COUNT 6.9 K/UL (4.8-10.8)
[2017-10-15 20:45] VITALS: BP 132/65
[2017-10-15] MEDS ORDERED: NEXIUM40 MG ORAL (21:10)
[2017-10-15] MEDS ORDERED: ONDANSETRON ODT4 MG BC (21:11)
[2017-10-15 21:24] VITALS: BP 132/65
--- NOTE | 2017-10-17 14:52 | Emergency Room Report ---
History of Present Illness General Chief Complaint: Abdominal Pain Source: Patient Present Illness HPI 72-year-old female presents ED complaining of abdominal pain and vomiting. Started about 6 hours ago. History of gastritis. States that whenever the pain is this bad she has ER for IV pain meds and hydration. Pain is epigastric , sharp, 10 out of 10, nonradiating. Denies chest pain or shortness of breath. Denies fevers or chills. No other aggravating or relieving factors. Denies any other associated symptoms Allergies: Coded Allergies: Broccoli (Verified Allergy, Unknown, 04/05/16) IBUPROFEN (Verified Allergy, Unknown, 12/19/08) LACTOSE (Verified Allergy, Unknown, 12/10/15) Lactose intolerant MILK (Verified Allergy, Unknown, 08/15/11) ONION (Verified Allergy, Unknown, 04/05/16) ORANGE JUICE (Verified Allergy, Unknown, 04/05/16) TOMATO (Verified Allergy, Unknown, 04/05/16) Patient History Past Medical History: HTN, GI bleed Past Surgical History: none Pertinent Family History: none Social History: Denies: smoking, alcohol use, drug use Last Menstrual Period: NA Now: No Immunizations: UTD Reviewed Nursing Documentation: PMH: Agreed; PSxH: Agreed Nursing Documentation-PMH Hx Cardiac Problems: Yes Hx Hypertension: Yes Hx Pacemaker: No Hx Asthma: No Hx COPD: No Hx Diabetes: No Hx Cancer: No Hx Gastrointestinal Problems: Yes - gastritis Hx Dialysis: No Hx Neurological Problems: No Hx Cerebrovascular Accident: No Hx Seizures: No Review of Systems All Other Systems: negative except mentioned in HPI Physical Exam Vital Signs Date Time Temp Pulse Resp B/P (MAP) Pulse Ox O2 Delivery O2 Flow Rate FiO2 10/15/17 19:20 98.1 102 18 154/89 98 Room Air 98.1 Sp02 EP Interpretation: reviewed, normal General Appearance: alert, GCS 15, non-toxic, mild distress Head: normocephalic, atraumatic Eyes: bilateral eye normal inspection, bilateral eye PERRL ENT: hearing grossly normal, normal pharynx, no angioedema, normal voice Neck: full range of motion, supple/symm/no masses Respiratory: chest non-tender, lungs clear, normal breath sounds, speaking full sentences Cardiovascular #1: regular rate, rhythm, no edema Cardiovascular #2: 2+ carotid (R), 2+ carotid (L), 2+ radial (R), 2+ radial (L) , 2+ dorsalis pedis (R), 2+ dorsalis pedis (L) Gastrointestinal: normal bowel sounds, soft, non-distended, no guarding, no rebound, tenderness - epigastric Rectal: deferred Genitourinary: normal inspection, no CVA tenderness Musculoskeletal: back normal, gait/station normal, normal range of motion, non- tender Neurologic: alert, oriented x3, responsive, motor strength/tone normal, sensory intact, speech normal Psychiatric: judgement/insight normal, memory normal, mood/affect normal, no suicidal/homicidal ideation Reflexes: 3+ bicep (R), 3+ bicep (L), 3+ tricep (R), 3+ tricep (L), 3+ knee (R) , 3+ knee (L) Skin: normal color, no rash, warm/dry, well hydrated Lymphatic: no adenopathy Medical Decision Making Diagnostic Impression: Primary Impression: Gastritis Qualified Codes: K29.00 - Acute gastritis without bleeding Additional Impression: Chronic epigastric pain ER Course Hospital Course 72-year-old F presents to ED with epigastric pain with N/V. differential diagnosis: gastritis, SBO, cholecystits Clinical course Patient placed on stretcher. On cardiac monitor technician. After initial history and physical I ordered labs, IV fluids, zofran, protonix, morphine Labs - no leukocytosis, no electrolyte abnormalities, LFTs heber Upon reassessment, patient states pain has improved. Patient is well-known to [facility]. Has been here multiple times for similar presentation. Discussed with PMD Dr. Calvillo and he agrees that patient be safely discharged to home pending close outpatient follow-up I feel this is a highly complex case requiring extensive working including EKG/ Rhythm strip, Xray/CT/US, Blood/urine lab work, repeat exams while in ED, and administration of strong opiates/narcotics for pain control, admission to hospital or close patient follow up. Diagnosis - gastritis, chronic epigastric pain Stable and discharged to home with prescriptions for Zofran, nexium. Followup with PMD. Return to ED if symptoms recur or worsen Labs Test 10/15/17 19:45 White Blood Count 6.9 K/UL (4.8-10.8) Red Blood Count 5.13 M/UL (4.20-5.40) Hemoglobin 14.4 G/DL (12.0-16.0) Hematocrit 43.7 % (37.0-47.0) Mean Corpuscular Volume 85 FL (80-99) Mean Corpuscular Hemoglobin 28.1 PG (27.0-31.0) Mean Corpuscular Hemoglobin Concent 33.0 G/DL (32.0-36.0) Red Cell Distribution Width 14.1 % (11.6-14.8) Platelet Count 220 K/UL (150-450) Mean Platelet Volume 8.0 FL (6.5-10.1) Neutrophils (%) (Auto) 73.6 % (45.0-75.0) Lymphocytes (%) (Auto) 19.8 % (20.0-45.0) Monocytes (%) (Auto) 4.6 % (1.0-10.0) Eosinophils (%) (Auto) 1.1 % (0.0-3.0) Basophils (%) (Auto) 0.9 % (0.0-2.0) Sodium Level 139 MMOL/L (136-145) Potassium Level 3.4 MMOL/L (3.5-5.1) Chloride Level 102 MMOL/L (98-107) Carbon Dioxide Level 26 MMOL/L (21-32) Anion Gap 11 mmol/L (5-15) Blood Urea Nitrogen 9 mg/dL (7-18) Creatinine 0.8 MG/DL (0.55-1.30) Estimat Glomerular Filtration Rate mL/min (>60) Glucose Level 107 MG/DL (74-106) Calcium Level 9.8 MG/DL (8.5-10.1) Total Bilirubin 0.6 MG/DL (0.2-1.0) Aspartate Amino Transf (AST/SGOT) 22 U/L (15-37) Alanine Aminotransferase (ALT/SGPT) 25 U/L (12-78) Alkaline Phosphatase 161 U/L (46-116) Total Protein 8.2 G/DL (6.4-8.2) Albumin 4.0 G/DL (3.4-5.0) Globulin 4.2 g/dL Albumin/Globulin Ratio 1.0 (1.0-2.7) Lipase 121 U/L (73-393) Last Vital Signs Date Time Temp Pulse Resp B/P (MAP) Pulse Ox O2 Delivery O2 Flow Rate FiO2 10/15/17 21:24 97.6 88 14 132/65 96 Room Air 97.6 Status: improved Disposition: HOME, SELF-CARE Condition: Stable Scripts Ondansetron Odt* (ZOFRAN ODT*) 4 Mg Tab.rapdis 4 MG BC EVERY 6 HOURS PRN for Nausea & Vomiting, #20 TAB 0 Refills Prov: Cesar Elkins MD 10/15/17 Esomeprazole Magnesium (NEXIUM) 40 Mg Capsule. 40 MG ORAL DAILY, #30 CAP Prov: Cesar Elkins MD 10/15/17 Referrals: Silvino Calvillo MD, Mehrdad MD Patient Instructions: Gastritis, Adult, [id number] Cesar Elkins MD Oct 17, 2017 14:52
== END 2017-10-15 21:30 | disposition home or self-care (01) ==
LOC: EMR 20:04
DX: K29.70 Gastritis, unspecified, without bleeding (principal); I10 Essential (primary) hypertension; Z88.6 Allergy status to analgesic agent; Z91.011 Allergy to milk products; Z91.018 Allergy to other foods
CPT/HCPCS: 36415; 80053; 83690; 85025; 96374; 96375; 99284; C9113; J2270; J2405; S0028

== ENCOUNTER 2017-12-08 13:16 | Emergency (ER) | payer MEDICARE, MEDICAID ==
[~2017-12-08] VITALS: Ht 157.5 cm; Wt 73.9 kg
[~2017-12-08 13:16] MED LIST changes: +ONDANSETRON ODT4 MG BC
[2017-12-08 13:43] VITALS: BP 118/70
[2017-12-08] MEDS ORDERED: Lidocaine 2% Visc 15ml soln ORAL ONE (14:00)
[2017-12-08] MEDS ORDERED: Simethicone 80mg tab ORAL ONE (14:00)
[2017-12-08] MEDS ORDERED: Mylanta II UD 30ml ORAL ONE (14:00)
--- NOTE | 2017-12-08 14:43 | Emergency Room Report ---
History of Present Illness General Chief Complaint: Nausea Source: Patient, Medical Record Present Illness HPI 72-year-old female presents to the emergency department complaining of 4 out of 10 in severity burning epigastric pain and spitting up some "acid". Patient reports history of acid reflux and states that she normally takes Nexium. Patient states that she has been eating a lot of dang lately in order to treat her chronic nasal congestion. Patient states that her abdomen has had a burning sensation that comes and goes and she also is experiencing nausea she denies vomiting. Patient denies blood in the stool or dark tarry stools. Patient also denies abdominal tenderness. Denies positional changes having a bearing on her symptoms. pt. describes a burning sensation with regurgitation of acid. Denies CP, Palpitations, LOC, AMS, dizziness, Changes in Vision, Sensation, paresthesias, or a sudden severe headache. Allergies: Coded Allergies: Broccoli (Verified Allergy, Unknown, 04/05/16) IBUPROFEN (Verified Allergy, Unknown, 12/19/08) LACTOSE (Verified Allergy, Unknown, 12/10/15) Lactose intolerant MILK (Verified Allergy, Unknown, 08/15/11) ONION (Verified Allergy, Unknown, 04/05/16) ORANGE JUICE (Verified Allergy, Unknown, 04/05/16) TOMATO (Verified Allergy, Unknown, 04/05/16) Patient History Past Medical History: see triage record, GERD Past Surgical History: none Pertinent Family History: none Reviewed Nursing Documentation: PMH: Agreed; PSxH: Agreed Nursing Documentation-PMH Past Medical History: No History, Except For Hx Cardiac Problems: Yes Hx Hypertension: Yes Hx Pacemaker: No Hx Asthma: No Hx COPD: No Hx Diabetes: No Hx Cancer: No Hx Gastrointestinal Problems: Yes - gastritis Hx Dialysis: No Hx Neurological Problems: No Hx Cerebrovascular Accident: No Hx Seizures: No Review of Systems All Other Systems: negative except mentioned in HPI Physical Exam Vital Signs Date Time Temp Pulse Resp B/P (MAP) Pulse Ox O2 Delivery O2 Flow Rate FiO2 12/08/17 13:23 98.0 88 18 118/70 95 Room Air 98.1 Sp02 EP Interpretation: reviewed, normal General Appearance: well appearing, no apparent distress, alert, GCS 15, non- toxic Head: normocephalic, atraumatic Eyes: bilateral eye normal inspection, bilateral eye PERRL ENT: hearing grossly normal, normal voice Neck: full range of motion Respiratory: chest non-tender, lungs clear, normal breath sounds, speaking full sentences Cardiovascular #1: regular rate, rhythm, no edema, normal capillary refill Gastrointestinal: normal bowel sounds, non tender, soft Rectal: deferred Genitourinary: normal inspection, no CVA tenderness Musculoskeletal: back normal, gait/station normal, normal range of motion, non- tender Neurologic: alert, oriented x3, responsive, motor strength/tone normal, sensory intact, speech normal, grossly normal Psychiatric: judgement/insight normal Skin: normal color, no rash, warm/dry, well hydrated Medical Decision Making PA Attestation Dr. Houston is my supervising Physician whom patient management has been discussed with. Diagnostic Impression: Primary Impression: Abdominal pain Qualified Codes: R10.13 - Epigastric pain Additional Impression: Gastritis Qualified Codes: K29.00 - Acute gastritis without bleeding ER Course 72-year-old female presents to the emergency department complaining of 4 out of 10 in severity burning epigastric pain and spitting up some "acid". Patient reports history of acid reflux and states that she normally takes Nexium. Patient states that she has been eating a lot of dang lately in order to treat her chronic nasal congestion. Patient states that her abdomen has had a burning sensation that comes and goes and she also is experiencing nausea she denies vomiting. Patient denies blood in the stool or dark tarry stools. Patient also denies abdominal tenderness. Denies CP, Palpitations, LOC, AMS, dizziness, Changes in Vision, Sensation, paresthesias, or a sudden severe headache. Ddx considered but are not limited to GE, colitis, acute appy, SBO, H.pylori, Gastritis, PNA, AAA,pericarditis just to name a few. Vital signs: pt. is afebrile, H&PE are most consistent with Gastritis - no evidence to suggest acute abdomen on physical exam. Pt. not hypotensive or dizzy. pt. is NAD and walking about ED and hospital looking for one of her bags. ORDERS: - EK NSR, no acute ST changes. -None required at this time, the dx is clinical. ED INTERVENTIONS: -Mylanta PO -Lidocaine PO -Pt. reports improvement of her symptoms. -I do not identify an emergent condition at this time. With current presentation , pt. is stable for close outpatient follow up and conservative treatment. D/ w pt. to return promptly to ED with worsening or new symptoms.- Pt. verbalizes' her understanding and agreement with proposed treatment plan.proposed treatment plan as well as ED return precautions. DISCHARGE: At this time pt. is stable for d/c to home. Will provide printed patient care instructions, and any necessary prescriptions. Care plan and follow up instructions have been discussed with the patient prior to discharge. EKG Diagnostic Results EP Interpretation: Dr. Houston Rate: normal - 83 ST Segments: no acute changes ASA given to the pt in ED: No PA Scribe Text This Interpretation was scribed by AMAURY Manuel. Last Vital Signs Date Time Temp Pulse Resp B/P (MAP) Pulse Ox O2 Delivery O2 Flow Rate FiO2 12/08/17 13:43 98.1 18 118/70 95 Room Air 98.1 12/08/17 13:23 88 Disposition: HOME, SELF-CARE Condition: Stable Scripts Lidocaine HCl 2% Viscous (Lidocaine HCl 2% Viscous) 100 Ml Solution 15 ML ORAL QID, #200 ML Prov: Lise Manuel 12/08/17 Simethicone* (SIMETHICONE*) 80 Mg Tab.chew 80 MG ORAL Q8H PRN for GAS PAIN, #10 TAB 0 Refills Prov: Lise Manuel 12/08/17 Ranitidine Hcl* (ZANTAC*) 150 Mg Tablet 150 MG ORAL TWICE A DAY for 10 Days, #20 TAB Prov: Lise Manuel 12/08/17 Referrals: Silvino Calvillo MD (PCP) Patient Instructions: Gastritis, Adult, [id number] Additional Instructions: Take medications as directed. Follow up with a Primary Care Provider in 3-5 days, even if your symptoms have resolved. --Please review list of primary care clinics, if you do not already have a primary care provider Return sooner to ED if new symptoms occur, or current symptoms become worse. - Please note that this Emergency Department Report was dictated using [employer] engineering manager technology software, occasionally this can lead to erroneous entry secondary to interpretation by the dictation equipment. Lise Manuel Dec 08, 2017 14:43
[2017-12-08] MEDS ORDERED: RANITIDINE HCL150 MG ORAL (14:50)
[2017-12-08] MEDS ORDERED: SIMETHICONE80 MG ORAL (14:50)
[2017-12-08] MEDS ORDERED: LIDOCAINE VISC100 ML ORAL (15:09)
[2017-12-08 15:20] VITALS: BP 118/70
--- NOTE | 2017-12-10 15:45 | Cardiology Report ---
APPROVED REPORT EKG Measurement Heart [id number] Normal sinus rhythm Normal ECG
== END 2017-12-08 15:20 | disposition home or self-care (01) ==
LOC: EMR 14:16
DX: K29.70 Gastritis, unspecified, without bleeding (principal); I10 Essential (primary) hypertension; Z88.6 Allergy status to analgesic agent; Z91.011 Allergy to milk products; Z91.018 Allergy to other foods
CPT/HCPCS: 93005; 99283

== ENCOUNTER 2018-04-21 10:57 | Outpatient (CLI) | payer MEDICARE, MEDICAID ==
[~2018-04-21 10:57] MED LIST changes: +LIDOCAINE VISC100 ML ORAL; +RANITIDINE HCL150 MG ORAL; +SIMETHICONE80 MG ORAL
[2018-04-21 16:16] VITALS: BP 116/71
--- NOTE | 2018-04-21 18:59 | GI Progress Note ---
Assessment/Plan Problems: (1) GERD (gastroesophageal reflux disease) ICD Codes: K21.9 - GERD (gastroesophageal reflux disease) SNOMED: 978736796 (2) Gastritis (3) Abdominal pain ICD Codes: R10.9 - Abdominal pain SNOMED: 06832010 (4) Chronic epigastric pain ICD Codes: R10.13 - Epigastric pain; G89.29 - Other chronic pain SNOMED: 69493005, 06093317 Status: stable Status Narrative Seen with Dr. Zheng. Assessment/Plan Needs repeat colonoscopy, patient request to schedule July 2018. refused EGD cont zantac RTC x 3 months The patient was seen and examined at bedside and all new and available data was reviewed in the patients chart. I agree with the above findings, impression and plan. (Patient seen earlier today. Signature stamp does not reflect patient encounter time.). - Patrick Zheng MD Subjective Subjective Had recent hospital admission for CP. last colonoscopy done in 2012. stopped taking Nexium, now taking zantac. Objective Last 24 Hour Vital Signs Date Time Temp Pulse Resp B/P (MAP) Pulse Ox O2 Delivery O2 Flow Rate FiO2 04/21/18 16:16 98.1 75 116/71 97 General Appearance: WD/WN, no apparent distress, alert Cardiovascular: normal rate Respiratory/Chest: normal breath sounds, no respiratory distress Abdominal Exam: normal bowel sounds, non tender, soft Extremities: normal range of motion, non-tender Rodri Oliveros SET UP OPERATOR TOOL Apr 21, 2018 18:59
== END 2018-04-21 11:27 | disposition home or self-care (01) ==
LOC: PAN 10:57
DX: K21.9 Gastro-esophageal reflux disease without esophagitis (principal); K29.70 Gastritis, unspecified, without bleeding; R10.9 Unspecified abdominal pain; R10.13 Epigastric pain; G89.29 Other chronic pain
CPT/HCPCS: 99213

== ENCOUNTER 2018-04-30 09:22 | Emergency (ER) | payer MEDICARE, MEDICAID ==
[~2018-04-30] VITALS: Ht 157.5 cm; Wt 71.7 kg
[2018-04-30 09:40] VITALS: BP 116/65
[2018-04-30 10:09] LABS: APPEARANCE,URINE CLEAR; BILIRUBIN, URINE NEGATIVE (NEGATIVE); COLOR,URINE PALE YELLOW; GLUCOSE, URINE (UA) NEGATIVE (NEGATIVE); KETONES,URINE NEGATIVE (NEGATIVE); LEUKOCYTE ESTERASE ,URINE 2+ (NEGATIVE); NITRITE,URINE NEGATIVE (NEGATIVE); PH,URINE 5 (4.5-8.0); PROTEIN,URINE NEGATIVE (NEGATIVE); UROBILINOGEN,URINE NORMAL MG/DL (0.0-1.0)
[2018-04-30 10:39] VITALS: BP 121/69
--- NOTE | 2018-04-30 12:31 | Emergency Room Report ---
History of Present Illness General Chief Complaint: Female Urogenital Problems Source: Patient Present Illness HPI Patient present with reports of burning with urination ongoing for the past several days She also had some mild cramping in the low back And she was concern about a possible bladder infection Denies any fevers or chills denies any flank pain Denies any vomiting or diarrhea Denies any vaginal discharge Allergies: Coded Allergies: Broccoli (Verified Allergy, Unknown, 04/05/16) IBUPROFEN (Verified Allergy, Unknown, 12/19/08) LACTOSE (Verified Allergy, Unknown, 12/10/15) Lactose intolerant MILK (Verified Allergy, Unknown, 08/15/11) ONION (Verified Allergy, Unknown, 04/05/16) ORANGE JUICE (Verified Allergy, Unknown, 04/05/16) TOMATO (Verified Allergy, Unknown, 04/05/16) Patient History Past Medical History: see triage record Pertinent Family History: none Reviewed Nursing Documentation: PMH: Agreed; PSxH: Agreed Nursing Documentation-PMH Past Medical History: No History, Except For Hx Cardiac Problems: Yes Hx Hypertension: Yes Hx Pacemaker: No Hx Asthma: No Hx COPD: No Hx Diabetes: No Hx Cancer: No Hx Gastrointestinal Problems: Yes - gastritis, Gerd, Hurnia Hx Dialysis: No Hx Neurological Problems: No Hx Cerebrovascular Accident: No Hx Seizures: No Review of Systems All Other Systems: negative except mentioned in HPI Physical Exam Vital Signs Date Time Temp Pulse Resp B/P (MAP) Pulse Ox O2 Delivery O2 Flow Rate FiO2 04/30/18 09:32 97.3 83 18 127/74 96 Room Air Sp02 EP Interpretation: reviewed, normal General Appearance: well appearing, no apparent distress Head: normocephalic, atraumatic Eyes: bilateral eye PERRL, bilateral eye EOMI ENT: hearing grossly normal, normal pharynx, TMs + canals normal, uvula midline Neck: full range of motion, supple, no meningismus, no bony tend Respiratory: lungs clear, normal breath sounds, no rhonchi, no respiratory distress, no retraction, no accessory muscle use Cardiovascular #1: normal peripheral pulses, regular rate, rhythm, no edema, no gallop, no JVD, no murmur Gastrointestinal: normal bowel sounds, non tender, soft, no mass, no organomegaly, non-distended, no guarding, no hernia, no pulsatile mass, no rebound Genitourinary: no CVA tenderness Musculoskeletal: normal inspection Neurologic: oriented x3, responsive, 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 analyst III-XII nml as tested, motor strength/ tone normal, sensory intact Psychiatric: mood/affect normal Skin: normal color, no rash, warm/dry, palpation normal Lymphatic: normal inspection, no adenopathy Medical Decision Making Diagnostic Impression: Primary Impression: uti ER Course Multiple differentials considered a shunt complaints are fairly specified towards possible bladder infection other differentials such as tumors incontinence, other infectious pathology entertained Patient has a benign medical evaluation otherwise Urine sample does show white blood cells in consideration for UTI patient was placed on Keflex recently by outside facility and will continue that medicine requiring close outpatient follow-up, Labs Test 04/30/18 09:44 Urine Color Pale yellow Urine Appearance Clear Urine pH 5 (4.5-8.0) Urine Specific [place] 1.025 (1.005-1.035) Urine Protein Negative (NEGATIVE) Urine Glucose (UA) Negative (NEGATIVE) Urine Ketones Negative (NEGATIVE) Urine Blood Negative (NEGATIVE) Urine Nitrite Negative (NEGATIVE) Urine Bilirubin Negative (NEGATIVE) Urine Urobilinogen Normal MG/DL (0.0-1.0) Urine Leukocyte Esterase 2+ (NEGATIVE) Urine RBC 0-2 /HPF (0 - 2) Urine WBC 5-10 /HPF (0 - 2) Urine Squamous Epithelial Cells Few /LPF (NONE/OCC) Urine Bacteria Occasional /HPF (NONE) Urine Mucus Moderate /LPF (NONE/OCC) Last Vital Signs Date Time Temp Pulse Resp B/P (MAP) Pulse Ox O2 Delivery O2 Flow Rate FiO2 04/30/18 10:39 97.5 77 14 121/69 97 Room Air Status: improved Disposition: HOME, SELF-CARE Condition: Stable Referrals: Silvino Calvillo MD (PCP) Patient Instructions: Urinary Tract Infection Additional Instructions: Patient is provided with the discharge instructions notified to follow up with primary doctor in the next 2-3 days otherwise return to the er with any worsening symptoms. Please note that this report is being documented using [employer] technology. This can lead to erroneous entry secondary to incorrect interpretation by the dictating instrument. Bronwyn Rubalcava DO Apr 30, 2018 12:31
== END 2018-04-30 10:42 | disposition home or self-care (01) ==
LOC: EMR 09:47
DX: N39.0 Urinary tract infection, site not specified (principal); I10 Essential (primary) hypertension; K21.9 Gastro-esophageal reflux disease without esophagitis; Z87.19 Personal history of other diseases of the digestive system; Z88.6 Allergy status to analgesic agent; Z91.02 Food additives allergy status
CPT/HCPCS: 81003; 99283

== ENCOUNTER 2018-05-07 06:40 | Inpatient (IN) | payer MEDICARE, MEDICAID ==
[~2018-05-07] VITALS: Ht 157.5 cm; Wt 69.4 kg
[2018-05-07 07:00] VITALS: BP 125/68
[2018-05-07] MEDS ORDERED: Mylanta II UD 30ml ORAL ONE (07:15)
[2018-05-07] MEDS ORDERED: Lidocaine 2% Visc 15ml soln ORAL ONE (07:15)
--- NOTE | 2018-05-07 07:37 | Emergency Room Report ---
History of Present Illness General Chief Complaint: Abdominal Pain Source: Patient Present Illness HPI This patient is well-known to [facility]. She has recurrent epigastric pain and GERD with hiatal hernia. She was recently admitted for the same symptoms. She declined EGD as she is concerned that she will have cardiac arrest if she undergoes EGD. She gets recurrent gastritis and esophagitis. She believes that her episodes are diet related. She states she typically can go 5-6 months without episodes. However, she had an episode about one month ago. She has had extensive workups to include imaging. She complains of epigastric pain, nausea and vomiting. She states that this episode started about 4 hours ago. This is her typical gastritis symptoms and she typically needs admission to the hospital for bowel rest and gastrointestinal hygiene. She states she also has burning in her chest. She denies fever or chills. She denies dysuria or hematuria. She has no other complaints. Allergies: Coded Allergies: Broccoli (Verified Allergy, Unknown, 04/05/16) IBUPROFEN (Verified Allergy, Unknown, 12/19/08) LACTOSE (Verified Allergy, Unknown, 12/10/15) Lactose intolerant MILK (Verified Allergy, Unknown, 08/15/11) ONION (Verified Allergy, Unknown, 04/05/16) ORANGE JUICE (Verified Allergy, Unknown, 04/05/16) TOMATO (Verified Allergy, Unknown, 04/05/16) Patient History Past Medical History: see triage record, HTN, GERD, other - Nerve deafness Social History: Denies: smoking, alcohol use, drug use Last Menstrual Period: 30 plus years ago Reviewed Nursing Documentation: PMH: Agreed; PSxH: Agreed Nursing Documentation-PMH Past Medical History: No Stated History Hx Cardiac Problems: Yes Hx Hypertension: Yes Hx Pacemaker: No Hx Asthma: No Hx COPD: No Hx Diabetes: No Hx Cancer: No Hx Gastrointestinal Problems: Yes - gastritis, Gerd, Hurnia Hx Dialysis: No Hx Neurological Problems: No Hx Cerebrovascular Accident: No Hx Seizures: No Review of Systems All Other Systems: negative except mentioned in HPI Physical Exam Vital Signs Date Time Temp Pulse Resp B/P (MAP) Pulse Ox O2 Delivery O2 Flow Rate FiO2 05/07/18 06:48 97.9 88 18 152/87 99 Room Air Sp02 EP Interpretation: reviewed, normal General Appearance: no apparent distress, alert, GCS 15, non-toxic Head: normocephalic, atraumatic Eyes: bilateral eye normal inspection, bilateral eye PERRL ENT: hearing grossly normal, normal pharynx, no angioedema, normal voice Neck: full range of motion, supple/symm/no masses Respiratory: chest non-tender, lungs clear, normal breath sounds, no respiratory distress, no retraction, no accessory muscle use, speaking full sentences Cardiovascular #1: regular rate, rhythm, no edema Gastrointestinal: normal bowel sounds, soft, non-distended, no guarding, no rebound, tenderness - TTP in the epigastrium Rectal: deferred Genitourinary: normal inspection, no CVA tenderness Musculoskeletal: back normal, gait/station normal, normal range of motion, non- tender Neurologic: alert, oriented x3, responsive, motor strength/tone normal, sensory intact, speech normal Psychiatric: judgement/insight normal, memory normal, mood/affect normal, no suicidal/homicidal ideation Skin: normal color, no rash, warm/dry, well hydrated Medical Decision Making Diagnostic Impression: Primary Impression: Gastritis Additional Impressions: Hiatal hernia Intractable pain Intractable vomiting ER Course The patient gets severe episodes of gastritis and esophagitis. She has a history of hiatal hernia. The patient is too afraid to undergo full evaluation by gastroenterology to include EGD. I suspect she likely has peptic ulcer disease. This is her typical episode and she cannot tolerate by mouth and has intractable pain and vomiting at this time. She'll need admission to the hospital for pain relief and nausea treatment. She was educated that she needed to undergo the EGD. She is admitted for further evaluation, treatment and monitoring. Please note that this Emergency Department Report was dictated using [employer] analytical lead technology software, occasionally this can lead to erroneous entry secondary to interpretation by the dictation equipment. Laboratory Tests Test 05/07/18 07:15 05/07/18 07:25 Urine Color Pale yellow Urine Appearance Clear Urine pH 5 (4.5-8.0) Urine Specific [place] 1.010 (1.005-1.035) Urine Protein Negative (NEGATIVE) Urine Glucose (UA) Negative (NEGATIVE) Urine Ketones Negative (NEGATIVE) Urine Blood Negative (NEGATIVE) Urine Nitrite Negative (NEGATIVE) Urine Bilirubin Negative (NEGATIVE) Urine Urobilinogen Normal MG/DL (0.0-1.0) Urine Leukocyte Esterase Negative (NEGATIVE) White Blood Count 5.0 K/UL (4.8-10.8) Red Blood Count 5.51 M/UL (4.20-5.40) H Hemoglobin 15.5 G/DL (12.0-16.0) Hematocrit 48.0 % (37.0-47.0) H Mean Corpuscular Volume 87 FL (80-99) Mean Corpuscular Hemoglobin 28.1 PG (27.0-31.0) Mean Corpuscular Hemoglobin Concent 32.2 G/DL (32.0-36.0) Red Cell Distribution Width 13.1 % (11.6-14.8) Platelet Count 234 K/UL (150-450) Mean Platelet Volume 8.8 FL (6.5-10.1) Neutrophils (%) (Auto) 71.0 % (45.0-75.0) Lymphocytes (%) (Auto) 20.9 % (20.0-45.0) Monocytes (%) (Auto) 6.1 % (1.0-10.0) Eosinophils (%) (Auto) 1.3 % (0.0-3.0) Basophils (%) (Auto) 0.7 % (0.0-2.0) Sodium Level 139 MMOL/L (136-145) Potassium Level 3.6 MMOL/L (3.5-5.1) Chloride Level 102 MMOL/L (98-107) Carbon Dioxide Level 25 MMOL/L (21-32) Anion Gap 12 mmol/L (5-15) Blood Urea Nitrogen 10 mg/dL (7-18) Creatinine 0.8 MG/DL (0.55-1.30) Estimate Glomerular Filtration Rate mL/min (>60) Glucose Level 100 MG/DL (74-106) Calcium Level 9.9 MG/DL (8.5-10.1) Total Bilirubin 0.9 MG/DL (0.2-1.0) Aspartate Amino Transferase (AST) 23 U/L (15-37) Alanine Aminotransferase (ALT) 22 U/L (12-78) Alkaline Phosphatase 162 U/L (46-116) H Total Creatine Kinase 242 U/L (26-308) Troponin I 0.000 ng/mL (0.000-0.056) Total Protein 8.2 G/DL (6.4-8.2) Albumin 4.0 G/DL (3.4-5.0) Globulin 4.2 g/dL Albumin/Globulin Ratio 1.0 (1.0-2.7) Lipase 104 U/L (73-393) EKG Diagnostic Results Rate: normal Rhythm: NSR ST Segments: no acute changes Rhythm Strip Diag. Results EP Interpretation: yes Rate: 90's Rhythm: NSR, no PVC's, no ectopy Last Vital Signs Date Time Temp Pulse Resp B/P (MAP) Pulse Ox O2 Delivery O2 Flow Rate FiO2 05/07/18 06:48 97.9 88 18 152/87 99 Room Air Disposition: ADMITTED INPATIENT Condition: Serious Referrals: Silvino Calvillo MD (PCP) Rosibel Houston DO May 07, 2018 07:37
[2018-05-07 07:43] LABS: BASOPHILS % (AUTO) 0.7 % (0.0-2.0); EOSINOPHILS % (AUTO) 1.3 % (0.0-3.0); HEMOGLOBIN 15.5 G/DL (12.0-16.0); LYMPHOCYTES % (AUTO) 20.9 % (20.0-45.0); MEAN CORPUSCULAR VOLUME 87 FL (80-99); MONOCYTES % (AUTO) 6.1 % (1.0-10.0); PLATELET COUNT 234 K/UL (150-450); RED BLOOD COUNT 5.51 M/UL (4.20-5.40); RED CELL DISTRIBUTION WIDTH 13.1 % (11.6-14.8)
[2018-05-07 07:44] LABS: APPEARANCE,URINE CLEAR; BILIRUBIN, URINE NEGATIVE (NEGATIVE); COLOR,URINE PALE YELLOW; GLUCOSE, URINE (UA) NEGATIVE (NEGATIVE); KETONES,URINE NEGATIVE (NEGATIVE); LEUKOCYTE ESTERASE ,URINE NEGATIVE (NEGATIVE); NITRITE,URINE NEGATIVE (NEGATIVE); PH,URINE 5 (4.5-8.0); PROTEIN,URINE NEGATIVE (NEGATIVE); UROBILINOGEN,URINE NORMAL MG/DL (0.0-1.0)
[2018-05-07 07:55] LABS: ANION GAP 12 mmol/L (5-15); BLOOD UREA NITROGEN 10 mg/dL (7-18); CALCIUM 9.9 MG/DL (8.5-10.1); CARBON DIOXIDE 25 MMOL/L (21-32); CHLORIDE 102 MMOL/L (98-107); CREATININE 0.8 MG/DL (0.55-1.30); POTASSIUM 3.6 MMOL/L (3.5-5.1); SODIUM 139 MMOL/L (136-145)
[2018-05-07 07:59] LABS: ALANINE AMINOTRANSFERASE 22 U/L (12-78); ALKALINE PHOSPHATASE 162 U/L (46-116); ASPARTATE AMINO TRANSFERASE 23 U/L (15-37); BILIRUBIN,TOTAL 0.9 MG/DL (0.2-1.0); CREATINE KINASE 242 U/L (26-308)
[2018-05-07] MEDS ORDERED: Morphine Sulfate 4mg/ml Inj (IV/IM USE ONLY) IVP ONE (08:15)
[2018-05-07 09:23] VITALS: BP 113/50
--- NOTE | 2018-05-07 09:39 | Cardiology Report ---
APPROVED REPORT EKG Measurement Heart [id number] [place] [id number] Normal sinus rhythm Minimal voltage criteria for LVH, may be normal variant Borderline ECG
[2018-05-07 10:55] VITALS: BP 141/65
--- NOTE | 2018-05-07 12:50 | Consultation ---
Chano Ling MD 05/07/18 1250: History of Present Illness General Chief Complaint: Abdominal Pain Present Illness Allergies: Coded Allergies: Broccoli (Verified Allergy, Unknown, 04/05/16) IBUPROFEN (Verified Allergy, Unknown, 12/19/08) LACTOSE (Verified Allergy, Unknown, 12/10/15) Lactose intolerant MILK (Verified Allergy, Unknown, 08/15/11) ONION (Verified Allergy, Unknown, 04/05/16) ORANGE JUICE (Verified Allergy, Unknown, 04/05/16) TOMATO (Verified Allergy, Unknown, 04/05/16) Medication History Scheduled Esomeprazole Magnesium (Nexium), 40 MG ORAL DAILY Lidocaine HCl 2% Viscous (Lidocaine HCl 2% Viscous), 15 ML ORAL QID Pantoprazole* (Pantoprazole*), 40 MG ORAL DAILY, (Reported) Ranitidine Hcl* (Zantac*), 150 MG ORAL TWICE A DAY Scheduled PRN Ondansetron Odt* (Zofran Odt*), 4 MG BC EVERY 6 HOURS PRN for Nausea & Vomiting Simethicone* (Simethicone*), 80 MG ORAL Q8H PRN for GAS PAIN Patient History Healthcare decision maker Resuscitation status Advanced Directive on File Yes Physical Exam Last 24 Hour Vital Signs Date Time Temp Pulse Resp B/P (MAP) Pulse Ox O2 Delivery O2 Flow Rate FiO2 05/07/18 12:19 Room Air 05/07/18 10:55 81 18 141/65 93 Room Air 100 05/07/18 10:55 81 18 141/65 05/07/18 09:23 97.4 80 17 113/50 93 Room Air 05/07/18 08:48 97.7 05/07/18 07:00 97.7 89 14 125/68 100 Room Air 05/07/18 07:00 84 13 Room Air 100 05/07/18 06:48 97.9 88 18 152/87 99 Room Air Intake and Output 05/06/18 05/07/18 19:00 07:00 # Voids 1 Laboratory Tests Test 05/07/18 07:15 05/07/18 07:25 Urine Color Pale yellow Urine Appearance Clear Urine pH 5 (4.5-8.0) Urine Specific [place] 1.010 (1.005-1.035) Urine Protein Negative (NEGATIVE) Urine Glucose (UA) Negative (NEGATIVE) Urine Ketones Negative (NEGATIVE) Urine Blood Negative (NEGATIVE) Urine Nitrite Negative (NEGATIVE) Urine Bilirubin Negative (NEGATIVE) Urine Urobilinogen Normal MG/DL (0.0-1.0) Urine Leukocyte Esterase Negative (NEGATIVE) White Blood Count 5.0 K/UL (4.8-10.8) Red Blood Count 5.51 M/UL (4.20-5.40) H Hemoglobin 15.5 G/DL (12.0-16.0) Hematocrit 48.0 % (37.0-47.0) H Mean Corpuscular Volume 87 FL (80-99) Mean Corpuscular Hemoglobin 28.1 PG (27.0-31.0) Mean Corpuscular Hemoglobin Concent 32.2 G/DL (32.0-36.0) Red Cell Distribution Width 13.1 % (11.6-14.8) Platelet Count 234 K/UL (150-450) Mean Platelet Volume 8.8 FL (6.5-10.1) Neutrophils (%) (Auto) 71.0 % (45.0-75.0) Lymphocytes (%) (Auto) 20.9 % (20.0-45.0) Monocytes (%) (Auto) 6.1 % (1.0-10.0) Eosinophils (%) (Auto) 1.3 % (0.0-3.0) Basophils (%) (Auto) 0.7 % (0.0-2.0) Sodium Level 139 MMOL/L (136-145) Potassium Level 3.6 MMOL/L (3.5-5.1) Chloride Level 102 MMOL/L (98-107) Carbon Dioxide Level 25 MMOL/L (21-32) Anion Gap 12 mmol/L (5-15) Blood Urea Nitrogen 10 mg/dL (7-18) Creatinine 0.8 MG/DL (0.55-1.30) Estimat Glomerular Filtration Rate mL/min (>60) Glucose Level 100 MG/DL (74-106) Calcium Level 9.9 MG/DL (8.5-10.1) Total Bilirubin 0.9 MG/DL (0.2-1.0) Aspartate Amino Transf (AST/SGOT) 23 U/L (15-37) Alanine Aminotransferase (ALT/SGPT) 22 U/L (12-78) Alkaline Phosphatase 162 U/L (46-116) H Total Creatine Kinase 242 U/L (26-308) Troponin I 0.000 ng/mL (0.000-0.056) Total Protein 8.2 G/DL (6.4-8.2) Albumin 4.0 G/DL (3.4-5.0) Globulin 4.2 g/dL Albumin/Globulin Ratio 1.0 (1.0-2.7) Lipase 104 U/L (73-393) Height (Feet): 5 Height (Inches): 2.00 Weight (Pounds): 153 Darnell Zuniga MD 05/07/18 1335: History of Present Illness General Chief Complaint: Abdominal Pain Present Illness HPI the pt is a 73 yo has recurrent epigastric pain and GERD with hiatal hernia. She was recently admitted for the same symptoms. She declined EGD as she is concerned that she will have cardiac arrest if she undergoes EGD. The pt is having anxiety and insomnia. the pt was trowing up earlier. the pt does not have si/hi Allergies: Coded Allergies: Broccoli (Verified Allergy, Unknown, 04/05/16) IBUPROFEN (Verified Allergy, Unknown, 12/19/08) LACTOSE (Verified Allergy, Unknown, 12/10/15) Lactose intolerant MILK (Verified Allergy, Unknown, 08/15/11) ONION (Verified Allergy, Unknown, 04/05/16) ORANGE JUICE (Verified Allergy, Unknown, 04/05/16) TOMATO (Verified Allergy, Unknown, 04/05/16) Medication History Scheduled Esomeprazole Magnesium (Nexium), 40 MG ORAL DAILY Lidocaine HCl 2% Viscous (Lidocaine HCl 2% Viscous), 15 ML ORAL QID Pantoprazole* (Pantoprazole*), 40 MG ORAL DAILY, (Reported) Ranitidine Hcl* (Zantac*), 150 MG ORAL TWICE A DAY Scheduled PRN Ondansetron Odt* (Zofran Odt*), 4 MG BC EVERY 6 HOURS PRN for Nausea & Vomiting Simethicone* (Simethicone*), 80 MG ORAL Q8H PRN for GAS PAIN Patient History Limited by: medical condition History Provided By: Patient, Medical Record, PMD Past Medical/Surgical History Past Medical/Surgical History: (1) Paget disease of bone (2) Bronchitis (3) Partial small bowel obstruction (4) Gastroenteritis (5) Pleuritic chest pain (6) Rash and other nonspecific skin eruption (7) Rash and other nonspecific skin eruption (8) Rhinitis (9) Tachycardia (10) SBO (small bowel obstruction) (11) SBO (small bowel obstruction) (12) SBO (small bowel obstruction) (13) Vomiting (14) GI (gastrointestinal bleed) (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 (16) Nausea & vomiting (17) SBO (small bowel obstruction) (18) Gastritis (19) small bowel obstruction (20) GERD (gastroesophageal reflux disease) (21) Chronic epigastric pain (22) Intractable vomiting (23) Hiatal hernia (24) Gastritis (25) Intractable pain (26) small bowel obstruction (27) Upper respiratory disease (28) Cough (29) Dyspnea (30) Constipation (31) Abdominal pain (32) Gastritis (33) Chest pain (34) ACS (acute coronary syndrome) (35) GERD (gastroesophageal reflux disease) (36) Hyperlipemia Review of Systems Psychiatric: Reports: prior hx, anxiety, depressed feelings Physical Exam General Appearance: alert, moderate distress Neurologic: oriented x 3, responsive, depressed affect Assessment/Plan Problem List: (1) Anxiety disorder ICD Codes: F41.9 - Anxiety disorder, unspecified SNOMED: 649806560 (2) MDD (major depressive disorder) ICD Codes: F32.9 - Major depressive disorder, single episode, unspecified SNOMED: 960724732 Assessment/Plan remeron 7.5mg qhs ativan prn provided ro/Chano Desir MD May 07, 2018 12:50 Darnell Zuniga MD May 07, 2018 13:35
[2018-05-07] MEDS ORDERED: Mylanta II UD 30ml ORAL PRN (13:00)
[2018-05-07] MEDS ORDERED: LORazepam Inj 2mg/ml 1ml IV PRN (13:00)
[2018-05-07] MEDS ORDERED: Nitroglycerin Subl 0.4mg tab SL PRN (13:00)
[2018-05-07] MEDS ORDERED: Miralax 17gm pkt ORAL PRN (13:00)
[2018-05-07] MEDS ORDERED: Morphine Sulfate 2mg/ml Inj IVP PRN (13:00)
[2018-05-07] MEDS ORDERED: Promethazine HCl 12.5 MG in NS 55 ML IV PRN (13:00)
[2018-05-07] MEDS ORDERED: Promethazine HCl 25 MG in NS 55 ML IV PRN (13:00)
[2018-05-07] MEDS ORDERED: Metoclopramide 10mg/2ml Inj IVP PRN (13:00)
--- NOTE | 2018-05-07 13:19 | Consultation ---
History of Present Illness General Chief Complaint: Abdominal Pain Present Illness HPI 73-year-old female who presents with chief complaint of epigastric pain. The patient was admitted to [facility] for similar symptoms in September of 2017. The patient refused endoscopy at that time. the pt has hx of depression and anxiety the pt stated that the anxiety is worse and asked for medication Allergies: Coded Allergies: Broccoli (Verified Allergy, Unknown, 04/05/16) IBUPROFEN (Verified Allergy, Unknown, 12/19/08) LACTOSE (Verified Allergy, Unknown, 12/10/15) Lactose intolerant MILK (Verified Allergy, Unknown, 08/15/11) ONION (Verified Allergy, Unknown, 04/05/16) ORANGE JUICE (Verified Allergy, Unknown, 04/05/16) TOMATO (Verified Allergy, Unknown, 04/05/16) Medication History Scheduled Esomeprazole Magnesium (Nexium), 40 MG ORAL DAILY Lidocaine HCl 2% Viscous (Lidocaine HCl 2% Viscous), 15 ML ORAL QID Pantoprazole* (Pantoprazole*), 40 MG ORAL DAILY, (Reported) Ranitidine Hcl* (Zantac*), 150 MG ORAL TWICE A DAY Scheduled PRN Ondansetron Odt* (Zofran Odt*), 4 MG BC EVERY 6 HOURS PRN for Nausea & Vomiting Simethicone* (Simethicone*), 80 MG ORAL Q8H PRN for GAS PAIN Patient History Limited by: medical condition History Provided By: Patient, PMD Healthcare decision maker Resuscitation status Advanced Directive on File Yes Past Medical/Surgical History Past Medical/Surgical History: (1) Hiatal hernia (2) Pleuritic chest pain (3) Gastroenteritis (4) Paget disease of bone (5) Rash and other nonspecific skin eruption (6) Rash and other nonspecific skin eruption (7) Rhinitis (8) Tachycardia (9) SBO (small bowel obstruction) (10) SBO (small bowel obstruction) (11) SBO (small bowel obstruction) (12) SBO (small bowel obstruction) (13) Bronchitis (14) Vomiting (15) GI (gastrointestinal bleed) (16) Osteoarthritis of lumbar spine (17) Nausea & vomiting (18) Partial small bowel obstruction (19) GERD (gastroesophageal reflux disease) (20) Chronic epigastric pain (21) Gastritis (22) small bowel obstruction (23) Anxiety disorder (24) MDD (major depressive disorder) (25) PUD (peptic ulcer disease) (26) Gastritis (27) Intractable vomiting (28) Intractable pain (29) small bowel obstruction (30) Upper respiratory disease (31) Cough (32) Dyspnea (33) Constipation (34) Abdominal pain (35) Gastritis (36) Chest pain (37) ACS (acute coronary syndrome) (38) GERD (gastroesophageal reflux disease) (39) Hyperlipemia Review of Systems Psychiatric: Reports: prior hx, anxiety, depressed feelings, emotional problems Physical Exam General Appearance: alert, mild distress Neurologic: oriented x 3, responsive, depressed affect Last 24 Hour Vital Signs Date Time Temp Pulse Resp B/P (MAP) Pulse Ox O2 Delivery O2 Flow Rate FiO2 05/07/18 12:19 Room Air 05/07/18 10:55 81 18 141/65 93 Room Air 100 05/07/18 10:55 81 18 141/65 05/07/18 09:23 97.4 80 17 113/50 93 Room Air 05/07/18 08:48 97.7 05/07/18 07:00 97.7 89 14 125/68 100 Room Air 05/07/18 07:00 84 13 Room Air 100 05/07/18 06:48 97.9 88 18 152/87 99 Room Air Intake and Output 05/06/18 05/07/18 19:00 07:00 # Voids 1 Laboratory Tests Test 05/07/18 07:15 05/07/18 07:25 Urine Color Pale yellow Urine Appearance Clear Urine pH 5 (4.5-8.0) Urine Specific [place] 1.010 (1.005-1.035) Urine Protein Negative (NEGATIVE) Urine Glucose (UA) Negative (NEGATIVE) Urine Ketones Negative (NEGATIVE) Urine Blood Negative (NEGATIVE) Urine Nitrite Negative (NEGATIVE) Urine Bilirubin Negative (NEGATIVE) Urine Urobilinogen Normal MG/DL (0.0-1.0) Urine Leukocyte Esterase Negative (NEGATIVE) White Blood Count 5.0 K/UL (4.8-10.8) Red Blood Count 5.51 M/UL (4.20-5.40) H Hemoglobin 15.5 G/DL (12.0-16.0) Hematocrit 48.0 % (37.0-47.0) H Mean Corpuscular Volume 87 FL (80-99) Mean Corpuscular Hemoglobin 28.1 PG (27.0-31.0) Mean Corpuscular Hemoglobin Concent 32.2 G/DL (32.0-36.0) Red Cell Distribution Width 13.1 % (11.6-14.8) Platelet Count 234 K/UL (150-450) Mean Platelet Volume 8.8 FL (6.5-10.1) Neutrophils (%) (Auto) 71.0 % (45.0-75.0) Lymphocytes (%) (Auto) 20.9 % (20.0-45.0) Monocytes (%) (Auto) 6.1 % (1.0-10.0) Eosinophils (%) (Auto) 1.3 % (0.0-3.0) Basophils (%) (Auto) 0.7 % (0.0-2.0) Sodium Level 139 MMOL/L (136-145) Potassium Level 3.6 MMOL/L (3.5-5.1) Chloride Level 102 MMOL/L (98-107) Carbon Dioxide Level 25 MMOL/L (21-32) Anion Gap 12 mmol/L (5-15) Blood Urea Nitrogen 10 mg/dL (7-18) Creatinine 0.8 MG/DL (0.55-1.30) Estimat Glomerular Filtration Rate mL/min (>60) Glucose Level 100 MG/DL (74-106) Calcium Level 9.9 MG/DL (8.5-10.1) Total Bilirubin 0.9 MG/DL (0.2-1.0) Aspartate Amino Transf (AST/SGOT) 23 U/L (15-37) Alanine Aminotransferase (ALT/SGPT) 22 U/L (12-78) Alkaline Phosphatase 162 U/L (46-116) H Total Creatine Kinase 242 U/L (26-308) Troponin I 0.000 ng/mL (0.000-0.056) Total Protein 8.2 G/DL (6.4-8.2) Albumin 4.0 G/DL (3.4-5.0) Globulin 4.2 g/dL Albumin/Globulin Ratio 1.0 (1.0-2.7) Lipase 104 U/L (73-393) Height (Feet): 5 Height (Inches): 2.00 Weight (Pounds): 153 Medications Current Medications Medications (Trade) Dose Ordered Sig/Radha Route PRN Reason Start Time Stop Time Status Last Admin Dose Admin Acetaminophen (Tylenol) 650 mg Q4H PRN ORAL fever (temp>100.5F) 05/07/18 13:00 06/06/18 12:59 Al Hydroxide/Mg Hydroxide (Mylanta II) 30 ml Q6H PRN ORAL dyspepsia 05/07/18 13:00 06/06/18 12:59 Dextrose (Dextrose 50%) 25 ml Q30M PRN IV Hypoglycemia 05/07/18 13:00 06/06/18 12:59 Dextrose (Dextrose 50%) 50 ml Q30M PRN IV Hypoglycemia 05/07/18 13:00 06/06/18 12:59 Dextrose/Sodium Chloride 1,000 ml @ 75 mls/hr [id number] IV 05/07/18 13:00 06/06/18 12:59 Diphenhydramine HCl (Benadryl) 25 mg Q6H PRN ORAL Itching/Pruritis 05/07/18 13:00 06/06/18 12:59 Heparin Sodium (Porcine) (Heparin 5000 units/ml) 5,000 units EVERY 12 HOURS SUBQ 05/07/18 21:00 06/06/18 20:59 Lorazepam (Ativan 2mg/ml 1ml) 1 mg Q4H PRN IV agitation 05/07/18 13:00 05/14/18 12:59 Metoclopramide HCl (Reglan) 10 mg Q6H PRN IVP severe nausea 05/07/18 13:00 06/06/18 12:59 Morphine Sulfate (Morphine Sulfate) 2 mg Q4H PRN IVP severe Pain (Pain Scale 7-10) 05/07/18 13:00 05/14/18 12:59 Nitroglycerin (Ntg) 0.4 mg Q5M X 3 DOSES PRN SL Prn Chest Pain 05/07/18 13:00 06/06/18 12:59 Ondansetron HCl (Zofran) 4 mg Q6H PRN IVP Nausea & Vomiting 05/07/18 13:00 06/06/18 12:59 Pantoprazole (Protonix) 40 mg DAILY IV 05/08/18 09:00 06/07/18 08:59 Polyethylene Glycol (Miralax) 17 gm HSPRN PRN ORAL Constipation 05/07/18 13:00 06/06/18 12:59 Promethazine HCl (Phenergan) 25 mg Q6H PRN IM refractory nausea/vomiting 05/07/18 13:00 06/06/18 12:59 Temazepam (Restoril) 15 mg HSPRN PRN ORAL Insomnia 05/07/18 13:00 05/14/18 12:59 Assessment/Plan Problem List: (1) MDD (major depressive disorder) ICD Codes: F32.9 - Major depressive disorder, single episode, unspecified SNOMED: 793650607 (2) Anxiety disorder ICD Codes: F41.9 - Anxiety disorder, unspecified SNOMED: 335356093 Assessment/Plan ativan prn remeron 7.5mg qhs provided sugar/Darnell Moss MD May 07, 2018 13:19
[2018-05-07] MEDS: D5 1/2NS 1,000 ML IV SCH (13:26)
[2018-05-07] MEDS ORDERED: LORazepam 1mg tab ORAL PRN (13:27)
--- NOTE | 2018-05-07 14:28 | History & Physical ---
History and Physical History & Physicial Dictated for Int Med-Dr Calvillo no. [id number] Angus Brooks MD May 07, 2018 14:28
--- NOTE | 2018-05-07 15:28 | GI Initial Consult Note ---
History of Present Illness General Date patient seen: May 07, 2018 Time patient seen: 15:21 Reason for Hospitalization: Abdominal Pain Referring physician: DESTINEY PEDRAZA Reason for Consultation: ABDOMINAL PAIN Present Illness HPI This patient is well-known to [facility]. She has recurrent epigastric pain and GERD with hiatal hernia. She was recently admitted for the same symptoms. She declined EGD as she is concerned that she will have cardiac arrest if she undergoes EGD. She gets recurrent gastritis and esophagitis. She believes that her episodes are diet related. She states she typically can go 5-6 months without episodes. However, she had an episode about one month ago. She has had extensive workups to include imaging. She complains of epigastric pain, nausea and vomiting. She states that this episode started about 4 hours ago. This is her typical gastritis symptoms and she typically needs admission to the hospital for bowel rest and gastrointestinal hygiene. She states she also has burning in her chest. She denies fever or chills. She denies dysuria or hematuria. She has no other complaints. GI consulted for abdominal pain. Patient was recently seen in our clinic approximately 2 weeks ago. During that time, she stated her GERD/gastritis have been relieved for months when she switched from Nexium to Zantac. The patient was seen today, states that her epigastric pain has resolved. In addition, she gave me her daily food regime which contained alot acidic food products. She has history of EGD greater than 20 years ago, but refuses at this time fearing that she will go into cardiac arrest. The patient is scheduled with us in the clinic for colonoscopy in July of 2018. Labs reviewed, mainly unremarkable but noted with some elevated alkaline phosphatase. Home Meds Active Scripts Lidocaine HCl 2% Viscous (Lidocaine HCl 2% Viscous) 100 Ml Solution, 15 ML ORAL QID, #200 ML Prov:Lise Manuel 12/08/17 Simethicone* (SIMETHICONE*) 80 Mg Tab.chew, 80 MG ORAL Q8H PRN for GAS PAIN, # 10 TAB 0 Refills Prov:Lise Manuel 12/08/17 Ranitidine Hcl* (ZANTAC*) 150 Mg Tablet, 150 MG ORAL TWICE A DAY for 10 Days, # 20 TAB Prov:Lise Manuel 12/08/17 Ondansetron Odt* (ZOFRAN ODT*) 4 Mg Tab.rapdis, 4 MG BC EVERY 6 HOURS PRN for Nausea & Vomiting, #20 TAB 0 Refills Prov:Cesar Elkins MD 10/15/17 Esomeprazole Magnesium (NEXIUM) 40 Mg Capsule.dr, 40 MG ORAL DAILY, #30 CAP Prov:Cesar Elkins MD 10/15/17 Reported Medications Pantoprazole* (PANTOPRAZOLE*) 40 Mg Tablet.dr, 40 MG ORAL DAILY, TAB 07/29/17 Med list reviewed/reconciled: Yes Allergies: Coded Allergies: Broccoli (Verified Allergy, Unknown, 04/05/16) IBUPROFEN (Verified Allergy, Unknown, 12/19/08) LACTOSE (Verified Allergy, Unknown, 12/10/15) Lactose intolerant MILK (Verified Allergy, Unknown, 08/15/11) ONION (Verified Allergy, Unknown, 04/05/16) ORANGE JUICE (Verified Allergy, Unknown, 04/05/16) TOMATO (Verified Allergy, Unknown, 04/05/16) Patient History History Provided By: Patient, Medical Record PMH Narrative Past Medical History: see triage record, HTN, GERD, other - Nerve deafness Social History: Denies: smoking, alcohol use, drug use Last Menstrual Period: 30 plus years ago Reviewed Nursing Documentation: PMH: Agreed; PSxH: Agreed Nursing Documentation-PM Past Medical History: No Stated History Hx Cardiac Problems: Yes Hx Hypertension: Yes Hx Pacemaker: No Hx Asthma: No Hx COPD: No Hx Diabetes: No Hx Cancer: No Hx Gastrointestinal Problems: Yes - gastritis, Gerd, Hurnia Hx Dialysis: No Hx Neurological Problems: No Hx Cerebrovascular Accident: No Hx Seizures: No Social History: Denies: smoking, alcohol use, drug use, other Review of Systems All Other Systems: negative except mentioned in HPI Physical Exam Vital Signs Date Time Temp Pulse Resp B/P (MAP) Pulse Ox O2 Delivery O2 Flow Rate FiO2 05/07/18 06:48 97.9 88 18 152/87 99 Room Air 05/07/18 07:00 100 Sp02 EP Interpretation: reviewed, normal Labs Laboratory Tests Test 05/07/18 07:15 05/07/18 07:25 Urine Color Pale yellow Urine Appearance Clear Urine pH 5 (4.5-8.0) Urine Specific [place] 1.010 (1.005-1.035) Urine Protein Negative (NEGATIVE) Urine Glucose (UA) Negative (NEGATIVE) Urine Ketones Negative (NEGATIVE) Urine Blood Negative (NEGATIVE) Urine Nitrite Negative (NEGATIVE) Urine Bilirubin Negative (NEGATIVE) Urine Urobilinogen Normal MG/DL (0.0-1.0) Urine Leukocyte Esterase Negative (NEGATIVE) White Blood Count 5.0 K/UL (4.8-10.8) Red Blood Count 5.51 M/UL (4.20-5.40) H Hemoglobin 15.5 G/DL (12.0-16.0) Hematocrit 48.0 % (37.0-47.0) H Mean Corpuscular Volume 87 FL (80-99) Mean Corpuscular Hemoglobin 28.1 PG (27.0-31.0) Mean Corpuscular Hemoglobin Concent 32.2 G/DL (32.0-36.0) Red Cell Distribution Width 13.1 % (11.6-14.8) Platelet Count 234 K/UL (150-450) Mean Platelet Volume 8.8 FL (6.5-10.1) Neutrophils (%) (Auto) 71.0 % (45.0-75.0) Lymphocytes (%) (Auto) 20.9 % (20.0-45.0) Monocytes (%) (Auto) 6.1 % (1.0-10.0) Eosinophils (%) (Auto) 1.3 % (0.0-3.0) Basophils (%) (Auto) 0.7 % (0.0-2.0) Sodium Level 139 MMOL/L (136-145) Potassium Level 3.6 MMOL/L (3.5-5.1) Chloride Level 102 MMOL/L (98-107) Carbon Dioxide Level 25 MMOL/L (21-32) Anion Gap 12 mmol/L (5-15) Blood Urea Nitrogen 10 mg/dL (7-18) Creatinine 0.8 MG/DL (0.55-1.30) Estimat Glomerular Filtration Rate mL/min (>60) Glucose Level 100 MG/DL (74-106) Calcium Level 9.9 MG/DL (8.5-10.1) Total Bilirubin 0.9 MG/DL (0.2-1.0) Aspartate Amino Transf (AST/SGOT) 23 U/L (15-37) Alanine Aminotransferase (ALT/SGPT) 22 U/L (12-78) Alkaline Phosphatase 162 U/L (46-116) H Total Creatine Kinase 242 U/L (26-308) Troponin I 0.000 ng/mL (0.000-0.056) Total Protein 8.2 G/DL (6.4-8.2) Albumin 4.0 G/DL (3.4-5.0) Globulin 4.2 g/dL Albumin/Globulin Ratio 1.0 (1.0-2.7) Lipase 104 U/L (73-393) General Appearance: well appearing, no apparent distress, alert Head: normocephalic EENT: PERRL/EOMI, normal ENT inspection Neck: supple Respiratory: normal breath sounds, no respiratory distress Cardiovascular: normal rate Gastrointestinal: normal inspection, non tender, soft, normal bowel sounds, non -distended Rectal: deferred Genitourinary: no CVA tenderness Musculoskeletal: normal inspection, back normal Neurologic: normal inspection, alert, oriented x3, responsive Psychiatric: normal inspection, judgement/insight normal, memory normal Skin: normal inspection, normal color, no rash, warm/dry, palpation normal, well hydrated Lymphatic: normal inspection, no adenopathy Current Medications Current Medications Medications (Trade) Dose Ordered Sig/Radha Route PRN Reason Start Time Stop Time Status Last Admin Dose Admin Acetaminophen (Tylenol) 650 mg Q4H PRN ORAL fever (temp>100.5F) 05/07/18 13:00 06/06/18 12:59 Al Hydroxide/Mg Hydroxide (Mylanta II) 30 ml Q6H PRN ORAL dyspepsia 05/07/18 13:00 06/06/18 12:59 Dextrose (Dextrose 50%) 25 ml Q30M PRN IV Hypoglycemia 05/07/18 13:00 06/06/18 12:59 Dextrose (Dextrose 50%) 50 ml Q30M PRN IV Hypoglycemia 05/07/18 13:00 06/06/18 12:59 Dextrose/Sodium Chloride 1,000 ml @ 75 mls/hr [id number] IV 05/07/18 13:00 06/06/18 12:59 05/07/18 13:26 Diphenhydramine HCl (Benadryl) 25 mg Q6H PRN ORAL Itching/Pruritis 05/07/18 13:00 06/06/18 12:59 Heparin Sodium (Porcine) (Heparin 5000 units/ml) 5,000 units EVERY 12 HOURS SUBQ 05/07/18 21:00 06/06/18 20:59 Lorazepam (Ativan 2mg/ml 1ml) 1 mg Q4H PRN IV agitation 05/07/18 13:00 05/14/18 12:59 Lorazepam (Ativan) 2 mg Q6H PRN ORAL For Anxiety 05/07/18 13:27 05/14/18 13:26 Metoclopramide HCl (Reglan) 10 mg Q6H PRN IVP severe nausea 05/07/18 13:00 06/06/18 12:59 Mirtazapine (Remeron) 7.5 mg BEDTIME ORAL 05/07/18 21:00 06/06/18 20:59 Morphine Sulfate (Morphine Sulfate) 2 mg Q4H PRN IVP severe Pain (Pain Scale 7-10) 05/07/18 13:00 05/14/18 12:59 Nitroglycerin (Ntg) 0.4 mg Q5M X 3 DOSES PRN SL Prn Chest Pain 05/07/18 13:00 06/06/18 12:59 Ondansetron HCl (Zofran) 4 mg Q6H PRN IVP Nausea & Vomiting 05/07/18 13:00 06/06/18 12:59 Pantoprazole (Protonix) 40 mg DAILY IV 05/08/18 09:00 06/07/18 08:59 Polyethylene Glycol (Miralax) 17 gm HSPRN PRN ORAL Constipation 05/07/18 13:00 06/06/18 12:59 Promethazine HCl (Phenergan) 25 mg Q6H PRN IM refractory nausea/vomiting 05/07/18 13:00 06/06/18 12:59 Temazepam (Restoril) 15 mg HSPRN PRN ORAL Insomnia 05/07/18 13:00 05/14/18 12:59 GI: Plan Problems: (1) PUD (peptic ulcer disease) (2) Gastritis (3) Hiatal hernia (4) Abdominal pain (5) GERD (gastroesophageal reflux disease) Plan refused EGD, will schedule if patient agrees advance diet ppi, consider adding H2B qhs if necessary RD for dietary education bowel regime zofran prn fu labs, H. Pylori serology, iron panel Discussed with Dr. Zheng. Thank you for this patient referral, we will follow. The patient was seen and examined at bedside and all new and available data was reviewed in the patients chart. I agree with the above findings, impression and plan. (Patient seen earlier today. Signature stamp does not reflect patient encounter time.). - MD Arlin Kumar AnhChano ROD May 07, 2018 15:28
[2018-05-07 16:00] VITALS: BP 131/69
--- NOTE | 2018-05-07 16:26 | Diagnostic Imaging Report ---
Indication: Abdominal pain Technique: Multiplanar grayscale and color Doppler imaging of the abdomen Comparison: None Findings: Imaged portions of the pancreatic head grossly unremarkable. Liver is normal in size. Hepatic contour is smooth. Hepatic echogenicity is within normal limits and homogeneous. No focal hepatic mass lesion appreciated sonographically. Main portal vein appears patent with normal direction of flow. Gallbladder is unremarkable, without gallstones or gallbladder sludge. No gallbladder wall thickening or pericholecystic fluid. Sonographic Terrazas sign reported as negative. No intrahepatic biliary ductal dilatation. Common bile duct measures 4 to 5 mm. Kidneys demonstrate normal echogenicity bilaterally. No sonographically appreciable renal stone is identified. There is mild fullness of the right renal collecting system persists on postvoid imaging. Some simple appearing cysts are noted in the left kidney. Postvoid residual bladder volume of 71 mL. Spleen is normal in size and appearance. Imaged portions of abdominal aorta normal in caliber. No ascites demonstrated. IMPRESSION: * No evidence of cholelithiasis or sonographic evidence to suggest acute cholecystitis. Sonographic Terrazas sign reported as negative. * Mild fullness of the right renal collecting system which persists on postvoid imaging. No definite renal stones identified sonographically. Correlate for right flank pain. Further imaging can be obtained as clinically indicated. * Post void residual bladder volume of 71 mL.
[2018-05-07 20:00] VITALS: BP 114/61
--- NOTE | 2018-05-07 20:00 | History and Physical Report ---
DATE OF ADMISSION: 05/07/2018 CHIEF COMPLAINT: The patient is a 73-year-old female who presents with chief complaint of epigastric pain. HISTORY OF PRESENT ILLNESS: The patient was admitted to [facility] for similar symptoms in September of 2017. The patient refused endoscopy at that time. The patient presented to [facility] emergency room complaining of a one-day history of epigastric pain. The patient states she feels like it is diet related. The patient was evaluated in [facility] emergency room. The patient is admitted for epigastric pain to rule out peptic ulcer disease. REVIEW OF SYSTEMS: CONSTITUTIONAL: The patient denies weight loss or weight gain. The patient denies fevers or chills. HEENT: The patient denies ear or throat pain. The patient denies headache. CARDIOVASCULAR: The patient denies palpitations or chest discomfort. CHEST: The patient denies wheeze or shortness of breath. ABDOMEN: The patient complains of epigastric pain as above. The patient denies nausea, vomiting, diarrhea, or constipation. GENITOURINARY: The patient denies dysuria or increased frequency of urination. NEUROMUSCULAR: The patient denies seizures or generalized weakness PAST MEDICAL HISTORY: Significant for: 1. Gastroesophageal reflux disease. 2. Hiatal hernia. 3. Hypertension. 4. Paget's disease of the left femur. 5. Osteoarthritis of the lumbar spine. PAST SURGICAL HISTORY: Significant for total abdominal hysterectomy. CURRENT MEDICATIONS: 1. Nexium 40 mg p.o. daily. 2. Zofran 4 mg sublingual q.6 hours p.r.n. 3. Protonix 40 mg p.o. daily. 4. Zantac 150 mg p.o. twice daily. 5. Simethicone 80 mg p.o. q.8 hours. ALLERGIES: 1. Broccoli. 2. Ibuprofen. 3. Lactose. 4. Milk. 5. Onion. 6. [place] juice. 7. Tomatoes. SOCIAL HISTORY: The patient is and lives alone. The patient denies tobacco or alcohol use. PHYSICAL EXAMINATION: VITAL SIGNS: Temperature 97.9, respirations 18, pulse 88, and blood pressure 152/87. GENERAL: The patient is well developed, well nourished female, in no apparent distress. HEENT: Eyes, pupils equal and responsive to light and accommodation. Extraocular movements are intact. NECK: Supple without lymphadenopathy. CHEST: Lungs are clear to auscultation bilaterally without wheezes or rales. CARDIOVASCULAR: Regular rhythm and rate. S1-S2 are normal without murmurs, rubs, or gallops. ABDOMEN: Soft, nondistended with positive bowel sounds. There is tenderness to palpation in the epigastric region. No rebound or guarding noted. EXTREMITIES: Negative for clubbing, cyanosis, or edema. RECTAL/GENITAL: Refused. NEUROLOGIC: Cranial nerves II through XII are grossly intact without focal deficits. Motor strength is 5/5 bilaterally. Deep tendon reflexes are 2+ plantar. LABORATORY STUDIES: WBC 5.0, hemoglobin 15.5, hematocrit 48.0, and platelets 234,000. Sodium 139, potassium 3.6, chloride 102, CO2 25, BUN 10, creatinine 0.8, and glucose 100. Troponin 0.0. Lipase 104. ASSESSMENT: This is a 73-year-old female. 1. Epigastric pain. 2. Gastritis. 3. Paget's disease of the left femur. 4. Osteoarthritis of the lumbar spine. TREATMENT: 1. Epigastric pain/gastritis. A Gastroenterology consultation obtained with Dr. Patrick Zheng. An abdominal ultrasound is pending. We will follow recommendations of Gastroenterology. 2. Paget's disease of left femur. 3. Osteoarthritis of lumbar spine. Angus Brooks M.D. DR: RICHARD JOB#: [id number] CC:
[2018-05-07] MEDS: Heparin 5000 units/ml inj SUBQ SCH (20:47)
[2018-05-08] VITALS (7 sets, daily range): BP systolic 103–155; BP diastolic 56–69
[2018-05-08] MEDS: D5 1/2NS 1,000 ML IV SCH ×2 (02:43→15:40)
[2018-05-08 07:09] LABS: ALANINE AMINOTRANSFERASE 18 U/L (12-78); ALBUMIN 2.8 G/DL (3.4-5.0); ALBUMIN/GLOBULIN RATIO 0.8 (1.0-2.7); ALKALINE PHOSPHATASE 115 U/L (46-116); AMYLASE 55 U/L (25-115); ANION GAP 6 mmol/L (5-15); ASPARTATE AMINO TRANSFERASE 16 U/L (15-37); BILIRUBIN,TOTAL 1.1 MG/DL (0.2-1.0); BLOOD UREA NITROGEN 7 mg/dL (7-18); CALCIUM 8.5 MG/DL (8.5-10.1); CARBON DIOXIDE 27 MMOL/L (21-32); CHLORIDE 107 MMOL/L (98-107); CREATININE 0.7 MG/DL (0.55-1.30); POTASSIUM 3.5 MMOL/L (3.5-5.1); SODIUM 140 MMOL/L (136-145)
[2018-05-08 07:13] LABS: BILIRUBIN,DIRECT 0.2 MG/DL (0.0-0.3); HEMOGLOBIN 11.9 G/DL (12.0-16.0); MEAN CORPUSCULAR VOLUME 88 FL (80-99); PLATELET COUNT 173 K/UL (150-450); RED CELL DISTRIBUTION WIDTH 13.3 % (11.6-14.8)
[2018-05-08] MEDS: Heparin 5000 units/ml inj SUBQ SCH ×2 (08:47→22:09)
[2018-05-08] MEDS ORDERED: Pantoprazole Inj IV SCH (09:00)
--- NOTE | 2018-05-08 13:46 | Internal Med Progress Note ---
Subjective Physician Name Silvino Calvillo Attending Physician Silvino Calvillo MD Current Medications Medications (Trade) Dose Ordered Sig/Radha Route PRN Reason Start Time Stop Time Status Last Admin Dose Admin Acetaminophen (Tylenol) 650 mg Q4H PRN ORAL fever (temp>100.5F) 05/07/18 13:00 06/06/18 12:59 Al Hydroxide/Mg Hydroxide (Mylanta II) 30 ml Q6H PRN ORAL dyspepsia 05/07/18 13:00 06/06/18 12:59 Dextrose (Dextrose 50%) 25 ml Q30M PRN IV Hypoglycemia 05/07/18 13:00 06/06/18 12:59 Dextrose (Dextrose 50%) 50 ml Q30M PRN IV Hypoglycemia 05/07/18 13:00 06/06/18 12:59 Dextrose/Sodium Chloride 1,000 ml @ 75 mls/hr [id number] IV 05/07/18 13:00 06/06/18 12:59 05/08/18 02:43 Diphenhydramine HCl (Benadryl) 25 mg Q6H PRN ORAL Itching/Pruritis 05/07/18 13:00 06/06/18 12:59 Heparin Sodium (Porcine) (Heparin 5000 units/ml) 5,000 units EVERY 12 HOURS SUBQ 05/07/18 21:00 06/06/18 20:59 05/08/18 08:47 Lorazepam (Ativan 2mg/ml 1ml) 1 mg Q4H PRN IV agitation 05/07/18 13:00 05/14/18 12:59 Lorazepam (Ativan) 2 mg Q6H PRN ORAL For Anxiety 05/07/18 13:27 05/14/18 13:26 Metoclopramide HCl (Reglan) 10 mg Q6H PRN IVP severe nausea 05/07/18 13:00 06/06/18 12:59 Mirtazapine (Remeron) 7.5 mg BEDTIME ORAL 05/07/18 21:00 06/06/18 20:59 05/07/18 20:46 Morphine Sulfate (Morphine Sulfate) 2 mg Q4H PRN IVP severe Pain (Pain Scale 7-10) 05/07/18 13:00 05/14/18 12:59 Nitroglycerin (Ntg) 0.4 mg Q5M X 3 DOSES PRN SL Prn Chest Pain 05/07/18 13:00 06/06/18 12:59 Ondansetron HCl (Zofran) 4 mg Q6H PRN IVP Nausea & Vomiting 05/07/18 13:00 06/06/18 12:59 Pantoprazole (Protonix) 40 mg DAILY IV 05/08/18 09:00 06/07/18 08:59 05/08/18 08:43 Polyethylene Glycol (Miralax) 17 gm HSPRN PRN ORAL Constipation 05/07/18 13:00 06/06/18 12:59 Promethazine HCl (Phenergan) 25 mg Q6H PRN IM refractory nausea/vomiting 05/07/18 13:00 06/06/18 12:59 Temazepam (Restoril) 15 mg HSPRN PRN ORAL Insomnia 05/07/18 13:00 05/14/18 12:59 Allergies: Coded Allergies: Broccoli (Verified Allergy, Unknown, 04/05/16) IBUPROFEN (Verified Allergy, Unknown, 12/19/08) LACTOSE (Verified Allergy, Unknown, 12/10/15) Lactose intolerant MILK (Verified Allergy, Unknown, 08/15/11) ONION (Verified Allergy, Unknown, 04/05/16) ORANGE JUICE (Verified Allergy, Unknown, 04/05/16) TOMATO (Verified Allergy, Unknown, 04/05/16) Subjective awake, alert, responsive, NAD, less abdominal pain. Objective Last Vital Signs Date Time Temp Pulse Resp B/P (MAP) Pulse Ox O2 Delivery O2 Flow Rate FiO2 05/08/18 12:00 97.6 53 17 119/58 (78) 98 05/08/18 09:00 Room Air 05/07/18 10:55 100 Laboratory Tests Test 05/08/18 06:05 White Blood Count 3.0 K/UL (4.8-10.8) L Red Blood Count 4.20 M/UL (4.20-5.40) Hemoglobin 11.9 G/DL (12.0-16.0) L Hematocrit 37.0 % (37.0-47.0) Mean Corpuscular Volume 88 FL (80-99) Mean Corpuscular Hemoglobin 28.4 PG (27.0-31.0) Mean Corpuscular Hemoglobin Concent 32.2 G/DL (32.0-36.0) Red Cell Distribution Width 13.3 % (11.6-14.8) Platelet Count 173 K/UL (150-450) Mean Platelet Volume 8.1 FL (6.5-10.1) Neutrophils (%) (Auto) % (45.0-75.0) Lymphocytes (%) (Auto) % (20.0-45.0) Monocytes (%) (Auto) % (1.0-10.0) Eosinophils (%) (Auto) % (0.0-3.0) Basophils (%) (Auto) % (0.0-2.0) Differential Total Cells Counted 100 Neutrophils % (Manual) 47 % (45-75) Lymphocytes % (Manual) 39 % (20-45) Monocytes % (Manual) 11 % (1-10) H Eosinophils % (Manual) 2 % (0-3) Basophils % (Manual) 1 % (0-2) Band Neutrophils 0 % (0-8) Platelet Estimate Adequate Platelet Morphology Normal Red Blood Cell Morphology Normal Activated Partial Thromboplast Time 27 SEC (23-33) Sodium Level 140 MMOL/L (136-145) Potassium Level 3.5 MMOL/L (3.5-5.1) Chloride Level 107 MMOL/L (98-107) Carbon Dioxide Level 27 MMOL/L (21-32) Anion Gap 6 mmol/L (5-15) Blood Urea Nitrogen 7 mg/dL (7-18) Creatinine 0.7 MG/DL (0.55-1.30) Estimat Glomerular Filtration Rate mL/min (>60) Glucose Level 100 MG/DL (74-106) Calcium Level 8.5 MG/DL (8.5-10.1) Total Bilirubin 1.1 MG/DL (0.2-1.0) H Direct Bilirubin 0.2 MG/DL (0.0-0.3) Aspartate Amino Transf (AST/SGOT) 16 U/L (15-37) Alanine Aminotransferase (ALT/SGPT) 18 U/L (12-78) Alkaline Phosphatase 115 U/L (46-116) Total Protein 6.4 G/DL (6.4-8.2) Albumin 2.8 G/DL (3.4-5.0) L Globulin 3.6 g/dL Albumin/Globulin Ratio 0.8 (1.0-2.7) L Amylase Level 55 U/L (25-115) Lipase 79 U/L (73-393) Helicobacter pylori IgG Antibody Pending Intake and Output 05/07/18 05/08/18 19:00 07:00 Intake Total 1375 ml 900 ml Balance 1375 ml 900 ml Intake IV Total 1375 ml 900 ml # Voids 3 # Bowel Movements 1 Objective General: No acute distress, awake and alert, hard to hear. HEENT: NCAT, sclera anicteric, PERRL, EOMI. Neck: Supple, no significant jugular venous distention, Lungs: Good inspiratory effort, clear to auscultation bilaterally, no Wheeze or Rales. Heart: Regular rate and rhythm, normal S1/S2, no murmurs Abdomen: soft, Less generalized tenderness, nondistended. Normoactive bowel sounds. / Rectal: Refused and deferred. Extremities: No Cyanosis , clubbing or edema. Neuro: A&O x 3, Able to move all extremities Skin: warm, no rashes or lesions Psych: Normal mood and affect Assessment/Plan Assessment/Plan 1. Epigastric abdominal pain. 2. Gastritis. 3. Paget's disease of the left femur. 4. Osteoarthritis of the lumbar spine. Plan: advance diet to liquid diet. F/U with GI recommendations Full code Heparin SQ Silvino Calvillo MD May 08, 2018 13:46
[2018-05-08] MEDS: RANITIDINE 150 MG ORAL SCH (17:28)
[2018-05-09] VITALS: BP 113/63
[2018-05-09 04:00] VITALS: BP 108/57
[2018-05-09] MEDS: D5 1/2NS 1,000 ML IV SCH (05:00)
[2018-05-09] MEDS: RANITIDINE 150 MG ORAL SCH (05:52)
--- NOTE | 2018-05-09 07:53 | General Progress Note ---
Assessment/Plan Problem List: (1) GERD (gastroesophageal reflux disease) ICD Codes: K21.9 - GERD (gastroesophageal reflux disease) SNOMED: 132864031 (2) Gastritis (3) Abdominal pain ICD Codes: R10.9 - Abdominal pain SNOMED: 83972478 Assessment/Plan feels better ok to dc fu as out patient left RX for Carafate Subjective ROS Limited/Unobtainable: Yes Allergies: Coded Allergies: Broccoli (Verified Allergy, Unknown, 04/05/16) IBUPROFEN (Verified Allergy, Unknown, 12/19/08) LACTOSE (Verified Allergy, Unknown, 12/10/15) Lactose intolerant MILK (Verified Allergy, Unknown, 08/15/11) ONION (Verified Allergy, Unknown, 04/05/16) ORANGE JUICE (Verified Allergy, Unknown, 04/05/16) TOMATO (Verified Allergy, Unknown, 04/05/16) Subjective no abd pain Objective Last 24 Hour Vital Signs Date Time Temp Pulse Resp B/P (MAP) Pulse Ox O2 Delivery O2 Flow Rate FiO2 05/09/18 04:00 97.9 63 19 108/57 (74) 96 63 05/09/18 00:00 97.8 83 19 113/63 (80) 97 19 05/08/18 21:00 97.9 76 19 155/69 (97) 96 05/08/18 21:00 Room Air 05/08/18 20:00 97.9 76 19 155/69 (97) 96 05/08/18 15:42 98.0 71 17 116/62 (80) 98 05/08/18 12:00 97.6 53 17 119/58 (78) 98 05/08/18 09:00 Room Air 05/08/18 08:00 98.0 54 18 127/69 (88) 95 Intake and Output 05/08/18 05/09/18 18:59 06:59 Intake Total 1275 ml 450 ml Balance 1275 ml 450 ml Intake Oral 600 ml 450 ml IV Total 675 ml # Voids 4 2 # Bowel Movements 1 2 Height (Feet): 5 Height (Inches): 2.00 Weight (Pounds): 153 General Appearance: alert EENT: normal ENT inspection Neck: supple Cardiovascular: normal rate Respiratory/Chest: decreased breath sounds Abdomen: normal bowel sounds, non tender, soft Extremities: non-tender Patrick Zheng MD May 09, 2018 07:53
[2018-05-09 08:00] VITALS: BP 132/74
[2018-05-09] MEDS: Heparin 5000 units/ml inj SUBQ SCH (08:17)
[2018-05-09 12:00] VITALS: BP 114/68
[2018-05-09] MEDS ORDERED: CARAFATE1 G1 ORAL (13:47)
--- NOTE | 2018-05-09 14:55 | Internal Med Progress Note ---
Subjective Date of Service: May 09, 2018 Physician Name Brooks,Angus Attending Physician Silvino Calvillo MD Current Medications Medications (Trade) Dose Ordered Sig/Radha Route PRN Reason Start Time Stop Time Status Last Admin Dose Admin Acetaminophen (Tylenol) 650 mg Q4H PRN ORAL fever (temp>100.5F) 05/07/18 13:00 06/06/18 12:59 Al Hydroxide/Mg Hydroxide (Mylanta II) 30 ml Q6H PRN ORAL dyspepsia 05/07/18 13:00 06/06/18 12:59 05/09/18 13:28 Dextrose (Dextrose 50%) 25 ml Q30M PRN IV Hypoglycemia 05/07/18 13:00 06/06/18 12:59 Dextrose (Dextrose 50%) 50 ml Q30M PRN IV Hypoglycemia 05/07/18 13:00 06/06/18 12:59 Dextrose/Sodium Chloride 1,000 ml @ 75 mls/hr [id number] IV 05/07/18 13:00 06/06/18 12:59 05/08/18 02:43 Diphenhydramine HCl (Benadryl) 25 mg Q6H PRN ORAL Itching/Pruritis 05/07/18 13:00 06/06/18 12:59 Heparin Sodium (Porcine) (Heparin 5000 units/ml) 5,000 units EVERY 12 HOURS SUBQ 05/07/18 21:00 06/06/18 20:59 05/08/18 22:09 Lorazepam (Ativan 2mg/ml 1ml) 1 mg Q4H PRN IV agitation 05/07/18 13:00 05/14/18 12:59 Lorazepam (Ativan) 2 mg Q6H PRN ORAL For Anxiety 05/07/18 13:27 05/14/18 13:26 Metoclopramide HCl (Reglan) 10 mg Q6H PRN IVP severe nausea 05/07/18 13:00 06/06/18 12:59 Mirtazapine (Remeron) 7.5 mg BEDTIME ORAL 05/07/18 21:00 06/06/18 20:59 05/08/18 22:08 Morphine Sulfate (Morphine Sulfate) 2 mg Q4H PRN IVP severe Pain (Pain Scale 7-10) 05/07/18 13:00 05/14/18 12:59 Nitroglycerin (Ntg) 0.4 mg Q5M X 3 DOSES PRN SL Prn Chest Pain 05/07/18 13:00 06/06/18 12:59 Ondansetron HCl (Zofran) 4 mg Q6H PRN IVP Nausea & Vomiting 05/07/18 13:00 06/06/18 12:59 Patient Own Medication (Patient's Own Med) 1 ea BIAC ORAL 05/08/18 16:30 06/07/18 16:29 05/09/18 05:52 Polyethylene Glycol (Miralax) 17 gm HSPRN PRN ORAL Constipation 05/07/18 13:00 06/06/18 12:59 Promethazine HCl (Phenergan) 25 mg Q6H PRN IM refractory nausea/vomiting 05/07/18 13:00 06/06/18 12:59 Temazepam (Restoril) 15 mg HSPRN PRN ORAL Insomnia 05/07/18 13:00 05/14/18 12:59 Allergies: Coded Allergies: Broccoli (Verified Allergy, Unknown, 04/05/16) IBUPROFEN (Verified Allergy, Unknown, 12/19/08) LACTOSE (Verified Allergy, Unknown, 12/10/15) Lactose intolerant MILK (Verified Allergy, Unknown, 08/15/11) ONION (Verified Allergy, Unknown, 04/05/16) ORANGE JUICE (Verified Allergy, Unknown, 04/05/16) TOMATO (Verified Allergy, Unknown, 04/05/16) ROS Limited/Unobtainable: No Constitutional: Reports: no symptoms HEENT: Reports: no symptoms Cardiovascular: Reports: no symptoms Respiratory: Reports: no symptoms Gastrointestinal/Abdominal: Reports: abdominal pain Genitourinary: Reports: no symptoms Neurologic/Psychiatric: Reports: no symptoms Subjective 73 YO F admitted with epigastric pain. Cover for Int Med-Dr Calvillo. Await discharge home Objective Last Vital Signs Date Time Temp Pulse Resp B/P (MAP) Pulse Ox O2 Delivery O2 Flow Rate FiO2 05/09/18 12:00 97.7 70 20 114/68 (83) 97 05/09/18 09:00 Room Air 05/07/18 10:55 100 General Appearance: WD/WN, no apparent distress, alert EENT: PERRL/EOMI, normal ENT inspection Neck: non-tender, normal alignment, supple, normal inspection Cardiovascular: normal peripheral pulses, normal rate, regular rhythm, no gallop/murmur, no JVD Respiratory/Chest: chest wall non-tender, lungs clear, normal breath sounds, no respiratory distress, no accessory muscle use Abdomen: soft, no organomegaly, no mass, decreased bowel sounds, tender Extremities: normal range of motion, non-tender Neurologic: medical technologist prn II-XII grossly normal, no motor/sensory deficits Skin: normal pigmentation, warm/dry Microbiology Date/Time Source Procedure Growth Status 05/07/18 10:45 Nasal Nares MRSA Culture - Final Staphylococcus Aureus - Mr[facility] Complete Intake and Output 05/08/18 05/09/18 19:00 07:00 Intake Total 1275 ml 450 ml Balance 1275 ml 450 ml Intake Oral 600 ml 450 ml IV Total 675 ml # Voids 4 2 # Bowel Movements 1 2 Assessment/Plan Problem List: (1) 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 (2) Abdominal pain Assessment & Plan: See GI note. Continue carafate (3) GERD (gastroesophageal reflux disease) Assessment & Plan: Hold GI procedures at this time=see GI note (4) Nausea & vomiting (5) Osteoarthritis of lumbar spine Status: progressing Angus Brooks MD May 09, 2018 14:55
--- NOTE | 2018-05-09 21:51 | General Progress Note ---
Assessment/Plan Problem List: (1) MDD (major depressive disorder) ICD Codes: F32.9 - Major depressive disorder, single episode, unspecified SNOMED: 411948571 (2) Anxiety disorder ICD Codes: F41.9 - Anxiety disorder, unspecified SNOMED: 034680196 Assessment/Plan ativan prn remeron 7.5mg qhs provided ro/st Subjective Neurologic/Psychiatric: Reports: anxiety, depressed, emotional problems Allergies: Coded Allergies: Broccoli (Verified Allergy, Unknown, 04/05/16) IBUPROFEN (Verified Allergy, Unknown, 12/19/08) LACTOSE (Verified Allergy, Unknown, 12/10/15) Lactose intolerant MILK (Verified Allergy, Unknown, 08/15/11) ONION (Verified Allergy, Unknown, 04/05/16) ORANGE JUICE (Verified Allergy, Unknown, 04/05/16) TOMATO (Verified Allergy, Unknown, 04/05/16) Objective Last 24 Hour Vital Signs Date Time Temp Pulse Resp B/P (MAP) Pulse Ox O2 Delivery O2 Flow Rate FiO2 05/09/18 12:00 97.7 70 20 114/68 (83) 97 05/09/18 09:00 Room Air 05/09/18 08:00 98.2 78 19 132/74 (93) 97 05/09/18 04:00 97.9 63 19 108/57 (74) 96 63 05/09/18 00:00 97.8 83 19 113/63 (80) 97 19 Intake and Output 05/08/18 05/09/18 19:00 07:00 Intake Total 1275 ml 450 ml Balance 1275 ml 450 ml Intake Oral 600 ml 450 ml IV Total 675 ml # Voids 4 2 # Bowel Movements 1 2 Height (Feet): 5 Height (Inches): 2.00 Weight (Pounds): 153 General Appearance: alert Neurologic: oriented x 3, responsive, depressed affect Darnell Zuniga MD May 09, 2018 21:50
--- NOTE | 2018-05-11 10:56 | Discharge Summary ---
Discharge Summary Discharge Summary _ DATE OF ADMISSION: 05/07/2018 DATE OF DISCHARGE: 05/09/2018 DISCHARGED BY: REASON FOR ADMISSION: 73 years old female with past medical history of hypertension, recurrent esophagitis and gastritis, GERD, hiatal hernia, osteoarthritis of lumbar spine , Paget disease of the left femur, presented with recurrent epigastric pain. Patient was recently admitted for similar symptoms. At that time she declined EGD. Patient reported epigastric pain with nausea and vomiting. No hematemesis. She denied fever and chills. She denies dysuria and hematuria. Laboratory workup was unremarkable. Urinalysis revealed no evidence of UTI. Abdominal ultrasound revealed no evidence of cholelithiasis or sonographic evidence to suggest acute cholecystitis. Sonographic Terrazas sign was reported as negative. Patient was admitted with diagnoses of gastritis, epigastric pain, osteoarthritis of lumbar spine ,Paget disease of the left femur. CONSULTANTS: pulmonary Dr. Ling GI specialist Dr. Zheng psychiatrist [facility] COURSE: Patient admitted and initially started on IV fluids. Gastroenterology consult was requested. GI specialist seen and evaluated patient, and offered EGD for further workup. Patient declined EGD. Diet was slowly started and advanced as tolerated. Patient started on PPI and Carafate. Antiemetic were on board as needed. Registered dietitian discussed with patient appropriate diet and strict reflux precautions. Serology for for H. pylori was ordered and currently pending. Patient was able to tolerate diet. Patient was encouraged to consider EGD. Psychiatrist closely followed and diagnosed patient with major depressive disorder and anxiety disorder . Patient started on Remeron at nighttime. Reality orientation and supportive therapy provided. DVT prophylaxis provided. Pain management was addressed as needed. Bowel regimen instituted. Patient was able to tolerate diet. Patient clinically stabilized and was ready for discharge home. 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 DISCHARGE INSTRUCTIONS: Patient was discharged home. Follow up with primary care provider in one week. Patient was strongly encouraged to consider EGD. I have been assigned to dictate discharge summary for this account. I was not involved in the patient's management. Sanjuana Ferreira NP May 11, 2018 10:56
== END 2018-05-09 15:18 | disposition home or self-care (01) | DRG 392 ==
LOC: EMR 07:05 → EDBEDREQ 08:14 → 4E 08:18 → EDBEDREQ 09:55 → 4E 18:40
DX: K29.70 Gastritis, unspecified, without bleeding (principal); K44.9 Diaphragmatic hernia without obstruction or gangrene; K21.9 Gastro-esophageal reflux disease without esophagitis; K27.9 Peptic ulcer, site unspecified, unspecified as acute or chronic, without hemorrhage or perforation; M88.852 Osteitis deformans of left thigh; M47.896 Other spondylosis, lumbar region; Z88.6 Allergy status to analgesic agent; Z91.018 Allergy to other foods; F41.9 Anxiety disorder, unspecified; F32.9 Major depressive disorder, single episode, unspecified
CPT/HCPCS: 36415; 76700; 80053; 81003; 82150; 82248; 82550; 83690; 84484; 85007; 85025; 85730; 86677; 87081; 93005; 96361; 96374; 96375; 99285; J2405

== ENCOUNTER 2018-05-20 20:18 | Inpatient (IN) | payer MEDICARE, MEDICAID ==
[~2018-05-20] VITALS: Ht 157.5 cm; Wt 69.4 kg
[~2018-05-20 20:18] MED LIST changes: +CARAFATE1 G1 ORAL
--- NOTE | 2018-05-20 20:20 | NUR ---
ED Nurse Note: Pt arrived ER with EMT. Pt states she has GI pain and travel to chest pain since 3 hours ago.. Pain level 8/10. Pt is AO x 4times, VSS, on room air no distress. GONZALEZ seen Pt at bedside.
[2018-05-20] MEDS ORDERED: Morphine Sulfate 4mg/ml Inj (IV/IM USE ONLY) IVP ONE (20:45)
--- NOTE | 2018-05-20 20:47 | Emergency Room Report ---
History of Present Illness General Chief Complaint: Chest Pain Source: Patient Present Illness HPI Patient presents with chest pain. Substernal and crushing. In addition to that she feels nausea and hasn't vomited. She denies any diarrhea or melena. She stopped taking Nexium and is taking sucralfate and ranitidine. She feels indigestion but also pressure or chest. She was recently admitted for similar problem. The patient is anxious. She stopped Nexium because of reports of associated renal dysfunction. She denies coffee-ground emesis, hematemesis. She denies melena. No joint pain or headache. No rashes. 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 Major depressive disorder Anxiety Allergies: Coded Allergies: Broccoli (Verified Allergy, Unknown, 04/05/16) IBUPROFEN (Verified Allergy, Unknown, 12/19/08) LACTOSE (Verified Allergy, Unknown, 12/10/15) Lactose intolerant MILK (Verified Allergy, Unknown, 08/15/11) ONION (Verified Allergy, Unknown, 04/05/16) ORANGE JUICE (Verified Allergy, Unknown, 04/05/16) TOMATO (Verified Allergy, Unknown, 04/05/16) Patient History Past Medical History: see triage record Social History: Denies: smoking, alcohol use Social History Narrative From home Reviewed Nursing Documentation: PMH: Agreed; PSxH: Agreed Nursing Documentation-PMH Hx Cardiac Problems: Yes Hx Hypertension: Yes Hx Pacemaker: No Hx Asthma: No Hx COPD: No Hx Diabetes: No Hx Cancer: No Hx Gastrointestinal Problems: Yes - gastritis, Gerd, Hurnia Hx Dialysis: No Hx Neurological Problems: No Hx Cerebrovascular Accident: No Hx Seizures: No Review of Systems All Other Systems: negative except mentioned in HPI Physical Exam Vital Signs Date Time Temp Pulse Resp B/P (MAP) Pulse Ox O2 Delivery O2 Flow Rate FiO2 05/20/18 20:20 120 16 167/96 96 Sp02 EP Interpretation: reviewed, normal General Appearance: GCS 15, non-toxic, mild distress Head: normocephalic Eyes: bilateral eye normal inspection, bilateral eye PERRL ENT: moist mucus membranes, other - hard of hearing Neck: supple Respiratory: chest non-tender, lungs clear, normal breath sounds Cardiovascular #1: regular rate, rhythm Cardiovascular #2: 2+ radial (R) Gastrointestinal: normal inspection, normal bowel sounds, no mass, non- distended, no guarding, no rebound, tenderness - Epigastric tenderness Genitourinary: no CVA tenderness Musculoskeletal: back normal, normal range of motion Neurologic: alert, oriented x3, grossly normal Psychiatric: anxious Skin: normal inspection, warm/dry Medical Decision Making Diagnostic Impression: Primary Impression: Chest pain Qualified Codes: R07.9 - Chest pain, unspecified Additional Impressions: Nausea & vomiting Qualified Codes: R11.2 - Nausea with vomiting, unspecified Anxiety disorder Qualified Codes: F41.9 - Anxiety disorder, unspecified ER Course Patient presents with chest pain. Differential includes acute microinfarction, acute coronary syndrome, reflux, gastritis, gastroenteritis, pancreatitis amongst others. Evaluation will be with EKG, chest x-ray and labs. Patient will placed on a alarm security or surveillance monitor. She will be given Pepcid, aspirin, nitroglycerin paste and analgesia. EKG without injury. Chest x-ray unremarkable. Labs with normal white count and hemoglobin and hematocrit. CMP unremarkable except for low potassium . Initial troponin negative. Urinalysis negative. The patient is improved with treatment. She is able to sleep. The pain is decreased. Due to the chest pain the patient is admitted for exclusion of cardiac injury or involvement. Admit to telemetry Dr. Calvillo. Laboratory Tests Test 05/20/18 21:00 White Blood Count 6.8 K/UL (4.8-10.8) Red Blood Count 4.72 M/UL (4.20-5.40) Hemoglobin 13.7 G/DL (12.0-16.0) Hematocrit 41.0 % (37.0-47.0) Mean Corpuscular Volume 87 FL (80-99) Mean Corpuscular Hemoglobin 28.9 PG (27.0-31.0) Mean Corpuscular Hemoglobin Concent 33.4 G/DL (32.0-36.0) Red Cell Distribution Width 13.0 % (11.6-14.8) Platelet Count 191 K/UL (150-450) Mean Platelet Volume 8.5 FL (6.5-10.1) Neutrophils (%) (Auto) 80.7 % (45.0-75.0) H Lymphocytes (%) (Auto) 12.3 % (20.0-45.0) L Monocytes (%) (Auto) 5.5 % (1.0-10.0) Eosinophils (%) (Auto) 0.7 % (0.0-3.0) Basophils (%) (Auto) 0.9 % (0.0-2.0) Prothrombin Time 10.7 SEC (9.30-11.50) Prothrombin Time INR 1.0 (0.9-1.1) PTT 26 SEC (23-33) Urine Color Yellow Urine Appearance Clear Urine pH 7 (4.5-8.0) Urine Specific [place] 1.015 (1.005-1.035) Urine Protein 1+ (NEGATIVE) H Urine Glucose (UA) Negative (NEGATIVE) Urine Ketones 2+ (NEGATIVE) H Urine Blood Negative (NEGATIVE) Urine Nitrite Negative (NEGATIVE) Urine Bilirubin Negative (NEGATIVE) Urine Urobilinogen 1 MG/DL (0.0-1.0) H Urine Leukocyte Esterase 2+ (NEGATIVE) H Urine RBC 0-2 /HPF (0 - 2) Urine WBC 2-4 /HPF (0 - 2) Urine Squamous Epithelial Cells None /LPF (NONE/OCC) Urine Bacteria Few /HPF (NONE) Sodium Level 139 MMOL/L (136-145) Potassium Level 3.4 MMOL/L (3.5-5.1) L Chloride Level 102 MMOL/L (98-107) Carbon Dioxide Level 26 MMOL/L (21-32) Anion Gap 12 mmol/L (5-15) Blood Urea Nitrogen 15 mg/dL (7-18) Creatinine 0.8 MG/DL (0.55-1.30) Estimate Glomerular Filtration Rate mL/min (>60) Glucose Level 109 MG/DL (74-106) H Calcium Level 9.6 MG/DL (8.5-10.1) Total Bilirubin 0.8 MG/DL (0.2-1.0) Aspartate Amino Transferase (AST) 21 U/L (15-37) Alanine Aminotransferase (ALT) 22 U/L (12-78) Alkaline Phosphatase 133 U/L (46-116) H Total Creatine Kinase 122 U/L (26-308) Troponin I 0.000 ng/mL (0.000-0.056) Pro-B-Type Natriuretic Peptide 36 pg/mL (0-125) Total Protein 7.3 G/DL (6.4-8.2) Albumin 3.7 G/DL (3.4-5.0) Globulin 3.6 g/dL Albumin/Globulin Ratio 1.0 (1.0-2.7) EKG Diagnostic Results Rate: normal Rhythm: NSR ST Segments: no acute changes - LAE Rhythm Strip Diag. Results EP Interpretation: yes Rhythm: NSR, no PVC's, no ectopy Chest X-Ray Diagnostic Results Chest X-Ray Diagnostic Results : Chest X-Ray Ordered: Yes # of Views/Limited/Complete: 1 View Indication: Chest Pain EP Interpretation: Yes Interpretation: no consolidation, no effusion, no pneumothorax Impression: No acute disease Electronically Signed by: Electronically signed by Tip Beth MD Last Vital Signs Date Time Temp Pulse Resp B/P (MAP) Pulse Ox O2 Delivery O2 Flow Rate FiO2 05/20/18 20:20 120 16 167/96 96 Status: improved Disposition: ADMITTED INPATIENT Condition: Serious Tip Beth MD May 20, 2018 20:47
[2018-05-20] MEDS ORDERED: Aspirin Baby 81mg ORAL ONE (21:00)
[2018-05-20 21:23] VITALS: BP 158/88
[2018-05-20 21:24] LABS: BASOPHILS % (AUTO) 0.9 % (0.0-2.0); EOSINOPHILS % (AUTO) 0.7 % (0.0-3.0); HEMOGLOBIN 13.7 G/DL (12.0-16.0); LYMPHOCYTES % (AUTO) 12.3 % (20.0-45.0); MEAN CORPUSCULAR VOLUME 87 FL (80-99); MONOCYTES % (AUTO) 5.5 % (1.0-10.0); NEUTROPHILS % (AUTO) 80.7 % (45.0-75.0); PLATELET COUNT 191 K/UL (150-450); RED BLOOD COUNT 4.72 M/UL (4.20-5.40); WHITE BLOOD COUNT 6.8 K/UL (4.8-10.8)
[2018-05-20 21:33] LABS: ANION GAP 12 mmol/L (5-15); BLOOD UREA NITROGEN 15 mg/dL (7-18); CALCIUM 9.6 MG/DL (8.5-10.1); CARBON DIOXIDE 26 MMOL/L (21-32); CHLORIDE 102 MMOL/L (98-107); CREATININE 0.8 MG/DL (0.55-1.30); POTASSIUM 3.4 MMOL/L (3.5-5.1); SODIUM 139 MMOL/L (136-145)
[2018-05-20 21:44] LABS: ALANINE AMINOTRANSFERASE 22 U/L (12-78); ALBUMIN 3.7 G/DL (3.4-5.0); ALKALINE PHOSPHATASE 133 U/L (46-116); ASPARTATE AMINO TRANSFERASE 21 U/L (15-37); BILIRUBIN,TOTAL 0.8 MG/DL (0.2-1.0); CREATINE KINASE 122 U/L (26-308)
[2018-05-20 22:46] LABS: APPEARANCE,URINE CLEAR; BILIRUBIN, URINE NEGATIVE (NEGATIVE); GLUCOSE, URINE (UA) NEGATIVE (NEGATIVE); KETONES,URINE 2+ (NEGATIVE); LEUKOCYTE ESTERASE ,URINE 2+ (NEGATIVE); NITRITE,URINE NEGATIVE (NEGATIVE); PH,URINE 7 (4.5-8.0); PROTEIN,URINE 1+ (NEGATIVE); UROBILINOGEN,URINE 1 MG/DL (0.0-1.0)
[2018-05-20 22:47] LABS: COLOR,URINE YELLOW
[2018-05-21] VITALS (7 sets, daily range): BP systolic 106–143; BP diastolic 57–86
--- NOTE | 2018-05-21 00:30 | NUR ---
ED Nurse Note: Message left to Dr Calvillo for admot orders, await for respond back.
--- NOTE | 2018-05-21 00:40 | NUR ---
ED Nurse Note: Admit Pt to Tele room 201-1. Pt is AO x 4times, VSS, on room air no distress. Belongings and skin check with floor nurse. Report given to ARIEL Brice.
--- NOTE | 2018-05-21 01:05 | NUR ---
NURSE NOTES: Received report from Felipe Mao (Patrick), ED RN.Pt came via [facility] without incident. Belonging checked, and air sampling and monitoring applied. Denied CP but stomach pain 07/26. No respiratory distress in RA. Bilateral NU[place]YARMIUT, although wearing hearing aid and Pt stated R. eye vision limit. VSS. Safety measures are applied w/ bed alarm on, bed in lowest position w/ side rails up x3. Call light and side table are w/in reach. Will contact PCP for admission order.
[2018-05-21] MEDS ORDERED: Zolpidem 5mg tab ORAL PRN (02:15)
[2018-05-21] MEDS ORDERED: Milk of Magnesia 30ml Ud ORAL PRN (02:15)
[2018-05-21] MEDS: NS w/KCl 20mEq 1,000 ML IV SCH (06:33)
[2018-05-21 07:40] LABS: BASOPHILS % (AUTO) 0.6 % (0.0-2.0); EOSINOPHILS % (AUTO) 2.3 % (0.0-3.0); HEMATOCRIT 38.8 % (37.0-47.0); HEMOGLOBIN 12.7 G/DL (12.0-16.0); LYMPHOCYTES % (AUTO) 19.3 % (20.0-45.0); MEAN CORPUSCULAR VOLUME 88 FL (80-99); MONOCYTES % (AUTO) 9.8 % (1.0-10.0); NEUTROPHILS % (AUTO) 67.9 % (45.0-75.0); PLATELET COUNT 183 K/UL (150-450); RED BLOOD COUNT 4.42 M/UL (4.20-5.40); RED CELL DISTRIBUTION WIDTH 13.5 % (11.6-14.8); WHITE BLOOD COUNT 4.9 K/UL (4.8-10.8)
--- NOTE | 2018-05-21 07:45 | NUR ---
HAND-OFF: Report given to Julian Salazra RN. Stable condition.
[2018-05-21 07:52] LABS: ANION GAP 6 mmol/L (5-15); BLOOD UREA NITROGEN 12 mg/dL (7-18); CALCIUM 9.1 MG/DL (8.5-10.1); CARBON DIOXIDE 27 MMOL/L (21-32); CHLORIDE 106 MMOL/L (98-107); CREATININE 0.8 MG/DL (0.55-1.30); SODIUM 139 MMOL/L (136-145)
--- NOTE | 2018-05-21 07:54 | NUR ---
CASE MANAGEMENT:REVIEW 73 YR OLD FEMALE TO ER CC: CHEST PAIN AND GI PAIN SI: CHEST PAIN 97.8 120 16 167/96 96% ON RA TROPONIN(-) IS: IV MORPHINE IV ZOFRAN IV PEPCID 1L NS BOLUS ASA CXR : TELEMETRY STATUS
--- NOTE | 2018-05-21 07:58 | NUR ---
INTER[facility] CRITERIA MET FOR OBSERVATION ONLY
--- NOTE | 2018-05-21 08:10 | NUR ---
NURSE NOTES: received pt in the bed, awake, alert, oriented, vital signs stable, no co pain, no SOB, respiration regular, skin warm and dry to touch, intact, hard of hearing, bed in low position, call light within reach.
[2018-05-21] MEDS: Sucralfate 1gm tab ORAL SCH ×4 (09:26→20:30)
[2018-05-21] MEDS: Heparin 5000 units/ml inj SUBQ SCH ×2 (09:28→20:30)
--- NOTE | 2018-05-21 10:55 | Diagnostic Imaging Report ---
Indication: Chest pain Comparison: 08/06/2017 A single view chest radiograph was obtained. Findings: Cardiomediastinal appearance is within normal limits for age. The lungs are clear. Pulmonary vascularity is appropriate. The diaphragmatic contour is smooth and costophrenic angles are sharp. No pleural effusions are identified. The bones are osteopenic. Impression: No acute findings
--- NOTE | 2018-05-21 11:50 | Consultation ---
History of Present Illness General Date patient seen: May 21, 2018 Chief Complaint: Chest Pain Present Illness HPI 73 year old female with hx of SBO, GERD, Paget disease presented to ER with CC of chest/ epigastric pain and nausea. Her SBP was 167 on presentation. She doesn't have any hx of hypertension. She is admitted to telemetry to rule out ACS. Allergies: Coded Allergies: Broccoli (Verified Allergy, Unknown, 04/05/16) IBUPROFEN (Verified Allergy, Unknown, 12/19/08) LACTOSE (Verified Allergy, Unknown, 12/10/15) Lactose intolerant MILK (Verified Allergy, Unknown, 08/15/11) ONION (Verified Allergy, Unknown, 04/05/16) ORANGE JUICE (Verified Allergy, Unknown, 04/05/16) TOMATO (Verified Allergy, Unknown, 04/05/16) Medication History Scheduled Esomeprazole Magnesium (Nexium), 40 MG ORAL DAILY Lidocaine HCl 2% Viscous (Lidocaine HCl 2% Viscous), 15 ML ORAL QID Pantoprazole* (Pantoprazole*), 40 MG ORAL DAILY, (Reported) Ranitidine Hcl* (Zantac*), 150 MG ORAL TWICE A DAY Sucralfate* (Carafate*), 1 GM ORAL BID, (Reported) Scheduled PRN Ondansetron Odt* (Zofran Odt*), 4 MG BC EVERY 6 HOURS PRN for Nausea & Vomiting Simethicone* (Simethicone*), 80 MG ORAL Q8H PRN for GAS PAIN Patient History Healthcare decision maker Resuscitation status Full Code Advanced Directive on File Yes Past Medical/Surgical History Past Medical/Surgical History: (1) Anxiety disorder (2) 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 (3) MDD (major depressive disorder) (4) Chronic epigastric pain (5) Partial small bowel obstruction Review of Systems All Other Systems: negative except mentioned in HPI Physical Exam General Appearance: WD/WN, no apparent distress Lines, tubes and drains: peripheral HEENT: normocephalic, atraumatic Neck: non-tender, normal alignment Respiratory/Chest: chest wall non-tender, normal breath sounds Cardiovascular/Chest: normal peripheral pulses, normal rate Abdomen: normal bowel sounds, non tender Genitourinary/Rectal: normal genital exam, normal rectal exam Extremities: normal range of motion Skin Exam: normal pigmentation Neurologic: representative phlebotomy services II-XII grossly normal Last 24 Hour Vital Signs Date Time Temp Pulse Resp B/P (MAP) Pulse Ox O2 Delivery O2 Flow Rate FiO2 05/21/18 09:00 Room Air 05/21/18 08:00 96.4 82 20 127/86 (100) 97 05/21/18 08:00 77 05/21/18 04:00 97.6 69 18 113/61 (78) 98 05/21/18 03:38 71 05/21/18 03:02 Room Air 05/21/18 01:30 97.0 80 20 143/75 (97) 97 05/21/18 00:40 98.1 75 18 142/82 99 Room Air 05/21/18 00:30 98.1 75 18 142/82 99 Room Air 05/20/18 21:23 120 16 Room Air 05/20/18 21:23 97.8 88 18 158/88 97 Room Air 05/20/18 20:20 120 16 167/96 96 Intake and Output 05/20/18 05/21/18 19:00 07:00 # Voids 4 # Bowel Movements 1 Laboratory Tests Test 05/20/18 21:00 05/21/18 06:30 White Blood Count 6.8 K/UL (4.8-10.8) 4.9 K/UL (4.8-10.8) Red Blood Count 4.72 M/UL (4.20-5.40) 4.42 M/UL (4.20-5.40) Hemoglobin 13.7 G/DL (12.0-16.0) 12.7 G/DL (12.0-16.0) Hematocrit 41.0 % (37.0-47.0) 38.8 % (37.0-47.0) Mean Corpuscular Volume 87 FL (80-99) 88 FL (80-99) Mean Corpuscular Hemoglobin 28.9 PG (27.0-31.0) 28.9 PG (27.0-31.0) Mean Corpuscular Hemoglobin Concent 33.4 G/DL (32.0-36.0) 32.9 G/DL (32.0-36.0) Red Cell Distribution Width 13.0 % (11.6-14.8) 13.5 % (11.6-14.8) Platelet Count 191 K/UL (150-450) 183 K/UL (150-450) Mean Platelet Volume 8.5 FL (6.5-10.1) 9.1 FL (6.5-10.1) Neutrophils (%) (Auto) 80.7 % (45.0-75.0) H 67.9 % (45.0-75.0) Lymphocytes (%) (Auto) 12.3 % (20.0-45.0) L 19.3 % (20.0-45.0) L Monocytes (%) (Auto) 5.5 % (1.0-10.0) 9.8 % (1.0-10.0) Eosinophils (%) (Auto) 0.7 % (0.0-3.0) 2.3 % (0.0-3.0) Basophils (%) (Auto) 0.9 % (0.0-2.0) 0.6 % (0.0-2.0) Prothrombin Time 10.7 SEC (9.30-11.50) Prothromb Time International Ratio 1.0 (0.9-1.1) Activated Partial Thromboplast Time 26 SEC (23-33) Urine Color Yellow Urine Appearance Clear Urine pH 7 (4.5-8.0) Urine Specific [place] 1.015 (1.005-1.035) Urine Protein 1+ (NEGATIVE) H Urine Glucose (UA) Negative (NEGATIVE) Urine Ketones 2+ (NEGATIVE) H Urine Blood Negative (NEGATIVE) Urine Nitrite Negative (NEGATIVE) Urine Bilirubin Negative (NEGATIVE) Urine Urobilinogen 1 MG/DL (0.0-1.0) H Urine Leukocyte Esterase 2+ (NEGATIVE) H Urine RBC 0-2 /HPF (0 - 2) Urine WBC 2-4 /HPF (0 - 2) Urine Squamous Epithelial Cells None /LPF (NONE/OCC) Urine Bacteria Few /HPF (NONE) Sodium Level 139 MMOL/L (136-145) 139 MMOL/L (136-145) Potassium Level 3.4 MMOL/L (3.5-5.1) L 4.0 MMOL/L (3.5-5.1) Chloride Level 102 MMOL/L (98-107) 106 MMOL/L (98-107) Carbon Dioxide Level 26 MMOL/L (21-32) 27 MMOL/L (21-32) Anion Gap 12 mmol/L (5-15) 6 mmol/L (5-15) Blood Urea Nitrogen 15 mg/dL (7-18) 12 mg/dL (7-18) Creatinine 0.8 MG/DL (0.55-1.30) 0.8 MG/DL (0.55-1.30) Estimat Glomerular Filtration Rate mL/min (>60) mL/min (>60) Glucose Level 109 MG/DL (74-106) H 94 MG/DL (74-106) Calcium Level 9.6 MG/DL (8.5-10.1) 9.1 MG/DL (8.5-10.1) Total Bilirubin 0.8 MG/DL (0.2-1.0) Aspartate Amino Transf (AST/SGOT) 21 U/L (15-37) Alanine Aminotransferase (ALT/SGPT) 22 U/L (12-78) Alkaline Phosphatase 133 U/L (46-116) H Total Creatine Kinase 122 U/L (26-308) Troponin I 0.000 ng/mL (0.000-0.056) Pro-B-Type Natriuretic Peptide 36 pg/mL (0-125) Total Protein 7.3 G/DL (6.4-8.2) Albumin 3.7 G/DL (3.4-5.0) Globulin 3.6 g/dL Albumin/Globulin Ratio 1.0 (1.0-2.7) Height (Feet): 5 Height (Inches): 2.00 Weight (Pounds): 153 Medications Current Medications Medications (Trade) Dose Ordered Sig/Radha Route PRN Reason Start Time Stop Time Status Last Admin Dose Admin Acetaminophen (Tylenol) 650 mg Q4H PRN ORAL Mild Pain (Pain Scale 1-3) 05/21/18 02:15 06/20/18 02:14 Acetaminophen (Tylenol) 650 mg Q4H PRN ORAL fever 05/21/18 02:15 06/20/18 02:14 Dextrose (Dextrose 50%) 25 ml Q30M PRN IV Hypoglycemia 05/21/18 02:15 06/20/18 02:14 Dextrose (Dextrose 50%) 50 ml Q30M PRN IV Hypoglycemia 05/21/18 02:15 06/20/18 02:14 Docusate Sodium (Colace) 200 mg DAILY PRN ORAL Constipation 05/21/18 02:15 06/20/18 02:14 Famotidine (Pepcid) 20 mg BID ORAL 05/21/18 09:00 06/20/18 08:59 05/21/18 09:26 Heparin Sodium (Porcine) (Heparin 5000 units/ml) 5,000 units BID@0900,2100 SUBQ 05/21/18 09:00 06/20/18 08:59 05/21/18 09:28 Magnesium Hydroxide (Mom) 30 ml HSPRN PRN ORAL Constipation 05/21/18 02:15 06/20/18 02:14 Ondansetron HCl (Zofran) 4 mg Q4H PRN IVP Nausea & Vomiting 05/21/18 02:15 06/20/18 02:14 Sodium Chloride 1,000 ml @ 50 mls/hr Q20H IV 05/21/18 04:00 06/20/18 03:59 05/21/18 06:33 Sucralfate (Carafate) 1 gm FOUR TIMES A DAY ORAL 05/21/18 09:00 06/20/18 08:59 05/21/18 09:26 Zolpidem Tartrate (Ambien) 5 mg HSPRN PRN ORAL Insomnia 05/21/18 02:15 05/28/18 02:14 Assessment/Plan Problem List: (1) ACS (acute coronary syndrome) ICD Codes: I20.0 - Unstable angina SNOMED: 324765533 (2) Costochondritis ICD Codes: M94.0 - Chondrocostal junction syndrome [Tietze] SNOMED: 19721595 (3) GERD (gastroesophageal reflux disease) ICD Codes: K21.9 - Gastro-esophageal reflux disease without esophagitis SNOMED: 188649701 (4) Chronic epigastric pain ICD Codes: R10.13 - Epigastric pain; G89.29 - Other chronic pain SNOMED: 01347441, 35462804 (5) MDD (major depressive disorder) ICD Codes: F32.9 - Major depressive disorder, single episode, unspecified SNOMED: 441666501 (6) 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 monitor BP, pt might need antihypertensive agents. dvt prophylaxis. Chano Ling MD May 21, 2018 11:50
--- NOTE | 2018-05-21 12:00 | NUR ---
Social Work This Sw received a consult for a home safety evaluation. This Sw met with patient who explained she lives alone in the third floor (with elevator) and has been managing independently there, does not use any DME (nor wanting to use a cane at this time). Patient explained she does not drive and walking to the store close to her home. Her daughter, Olinda ([phone]) lives in [place], but is working and does not assist patient (or visit often), according to patient. Patient plans to discharge to home when medically cleared. This SW recommended IHSS services (patient states she had it, but her neighbor was too busy to assist her as well). This Sw provided additional IHSS information to reapply. No other needs/concerns present at this time.
--- NOTE | 2018-05-21 15:50 | NUR ---
REHAB MED PT NOTE CONSULT COREY SÁNCHEZTED, PATIENT WILL BENEFIT FROM SKILLED PT DURING STAY FOR RETURN TO [facility]. RECOMMEND HOME PT AT ME. PLAN OF CARE INITIATED. KIZZY BASHIR PT DPT Addendum: 05/21/18 at 1550 by KIZZY BASHIR PT Amended: Links added.
--- NOTE | 2018-05-21 15:56 | History & Physical ---
History and Physical History & Physicial Dictated for Int Med-Dr Calvillo no. [id number]. Angus Brooks MD May 21, 2018 15:55
[2018-05-21] MEDS ORDERED: Morphine Sulfate 4mg/ml Inj (IV/IM USE ONLY) IVP PRN ×2 (16:00)
--- NOTE | 2018-05-21 16:58 | NUR ---
HAND-OFF: Report given to BRIDGETTE GEORGE.
[2018-05-21] MEDS: RANITIDINE 150 MG ORAL SCH (17:36)
--- NOTE | 2018-05-21 17:43 | NUR ---
NURSE NOTES: 16:59- Received report from ARIEL Vick. Patient is sleeping in bed at this time and no distress noted.
--- NOTE | 2018-05-21 19:28 | NUR ---
HAND-OFF: Report given to ARIEL Mathews.
--- NOTE | 2018-05-21 19:30 | NUR ---
NURSE NOTES: Received report from ARIEL Moran. Patient is in bed resting with no signs of acute distress. Vitals signs stable, respiration even and non labored on room air. cytogeneticist shows sinus rhythm. No c/o pain noted. Call light within reach. Bed in lowest position. Will continue to monitor.
--- NOTE | 2018-05-21 20:51 | Cardiology Progress Note ---
Assessment/Plan Assessment/Plan [id number] Objective Last 24 Hour Vital Signs Date Time Temp Pulse Resp B/P (MAP) Pulse Ox O2 Delivery O2 Flow Rate FiO2 05/21/18 16:00 97.9 63 20 106/57 (73) 97 05/21/18 16:00 72 05/21/18 12:00 74 05/21/18 11:51 97.5 86 19 106/65 (79) 99 05/21/18 09:00 Room Air 05/21/18 08:00 96.4 82 20 127/86 (100) 97 05/21/18 08:00 77 05/21/18 04:00 97.6 69 18 113/61 (78) 98 05/21/18 03:38 71 05/21/18 03:02 Room Air 05/21/18 01:30 97.0 80 20 143/75 (97) 97 05/21/18 00:40 98.1 75 18 142/82 99 Room Air 05/21/18 00:30 98.1 75 18 142/82 99 Room Air 05/20/18 21:23 120 16 Room Air 05/20/18 21:23 97.8 88 18 158/88 97 Room Air Intake and Output 05/20/18 05/21/18 18:59 06:59 # Voids 4 # Bowel Movements 1 Laboratory Tests Test 05/20/18 21:00 05/21/18 06:30 05/21/18 16:12 White Blood Count 6.8 K/UL (4.8-10.8) 4.9 K/UL (4.8-10.8) Red Blood Count 4.72 M/UL (4.20-5.40) 4.42 M/UL (4.20-5.40) Hemoglobin 13.7 G/DL (12.0-16.0) 12.7 G/DL (12.0-16.0) Hematocrit 41.0 % (37.0-47.0) 38.8 % (37.0-47.0) Mean Corpuscular Volume 87 FL (80-99) 88 FL (80-99) Mean Corpuscular Hemoglobin 28.9 PG (27.0-31.0) 28.9 PG (27.0-31.0) Mean Corpuscular Hemoglobin Concent 33.4 G/DL (32.0-36.0) 32.9 G/DL (32.0-36.0) Red Cell Distribution Width 13.0 % (11.6-14.8) 13.5 % (11.6-14.8) Platelet Count 191 K/UL (150-450) 183 K/UL (150-450) Mean Platelet Volume 8.5 FL (6.5-10.1) 9.1 FL (6.5-10.1) Neutrophils (%) (Auto) 80.7 % (45.0-75.0) H 67.9 % (45.0-75.0) Lymphocytes (%) (Auto) 12.3 % (20.0-45.0) L 19.3 % (20.0-45.0) L Monocytes (%) (Auto) 5.5 % (1.0-10.0) 9.8 % (1.0-10.0) Eosinophils (%) (Auto) 0.7 % (0.0-3.0) 2.3 % (0.0-3.0) Basophils (%) (Auto) 0.9 % (0.0-2.0) 0.6 % (0.0-2.0) Prothrombin Time 10.7 SEC (9.30-11.50) Prothromb Time International Ratio 1.0 (0.9-1.1) Activated Partial Thromboplast Time 26 SEC (23-33) Urine Color Yellow Urine Appearance Clear Urine pH 7 (4.5-8.0) Urine Specific [place] 1.015 (1.005-1.035) Urine Protein 1+ (NEGATIVE) H Urine Glucose (UA) Negative (NEGATIVE) Urine Ketones 2+ (NEGATIVE) H Urine Blood Negative (NEGATIVE) Urine Nitrite Negative (NEGATIVE) Urine Bilirubin Negative (NEGATIVE) Urine Urobilinogen 1 MG/DL (0.0-1.0) H Urine Leukocyte Esterase 2+ (NEGATIVE) H Urine RBC 0-2 /HPF (0 - 2) Urine WBC 2-4 /HPF (0 - 2) Urine Squamous Epithelial Cells None /LPF (NONE/OCC) Urine Bacteria Few /HPF (NONE) Sodium Level 139 MMOL/L (136-145) 139 MMOL/L (136-145) Potassium Level 3.4 MMOL/L (3.5-5.1) L 4.0 MMOL/L (3.5-5.1) Chloride Level 102 MMOL/L (98-107) 106 MMOL/L (98-107) Carbon Dioxide Level 26 MMOL/L (21-32) 27 MMOL/L (21-32) Anion Gap 12 mmol/L (5-15) 6 mmol/L (5-15) Blood Urea Nitrogen 15 mg/dL (7-18) 12 mg/dL (7-18) Creatinine 0.8 MG/DL (0.55-1.30) 0.8 MG/DL (0.55-1.30) Estimat Glomerular Filtration Rate mL/min (>60) mL/min (>60) Glucose Level 109 MG/DL (74-106) H 94 MG/DL (74-106) Calcium Level 9.6 MG/DL (8.5-10.1) 9.1 MG/DL (8.5-10.1) Total Bilirubin 0.8 MG/DL (0.2-1.0) Aspartate Amino Transf (AST/SGOT) 21 U/L (15-37) Alanine Aminotransferase (ALT/SGPT) 22 U/L (12-78) Alkaline Phosphatase 133 U/L (46-116) H Total Creatine Kinase 122 U/L (26-308) Troponin I 0.000 ng/mL (0.000-0.056) 0.000 ng/mL (0.000-0.056) Pro-B-Type Natriuretic Peptide 36 pg/mL (0-125) Total Protein 7.3 G/DL (6.4-8.2) Albumin 3.7 G/DL (3.4-5.0) Globulin 3.6 g/dL Albumin/Globulin Ratio 1.0 (1.0-2.7) Calderon Winters MD May 21, 2018 20:50
--- NOTE | 2018-05-21 23:10 | Consultation ---
History of Present Illness General Chief Complaint: Chest Pain Present Illness HPI 73 year old female with hx of mmp, anxiety, insomnia, Paget disease presented to ER with CP and n. the pt has insomnia and anxiety. the pt was started on remeron before and was able to sleep however after dc she didn't fill her meds and she pw same sxs. anxiety and insomnia. the pt is not endorsing si/hi. the pt lives alone and is able to understand and process the information given to her. Allergies: Coded Allergies: Broccoli (Verified Allergy, Unknown, 04/05/16) IBUPROFEN (Verified Allergy, Unknown, 12/19/08) LACTOSE (Verified Allergy, Unknown, 12/10/15) Lactose intolerant MILK (Verified Allergy, Unknown, 08/15/11) ONION (Verified Allergy, Unknown, 04/05/16) ORANGE JUICE (Verified Allergy, Unknown, 04/05/16) TOMATO (Verified Allergy, Unknown, 04/05/16) Medication History Scheduled Esomeprazole Magnesium (Nexium), 40 MG ORAL DAILY Lidocaine HCl 2% Viscous (Lidocaine HCl 2% Viscous), 15 ML ORAL QID Pantoprazole* (Pantoprazole*), 40 MG ORAL DAILY, (Reported) Ranitidine Hcl* (Zantac*), 150 MG ORAL TWICE A DAY Sucralfate* (Carafate*), 1 GM ORAL BID, (Reported) Scheduled PRN Ondansetron Odt* (Zofran Odt*), 4 MG BC EVERY 6 HOURS PRN for Nausea & Vomiting Simethicone* (Simethicone*), 80 MG ORAL Q8H PRN for GAS PAIN Patient History History Provided By: Patient, Medical Record, PMD Healthcare decision maker Resuscitation status Full Code Advanced Directive on File Yes Past Medical/Surgical History Past Medical/Surgical History: (1) Costochondritis (2) GERD (gastroesophageal reflux disease) (3) ACS (acute coronary syndrome) (4) Hiatal hernia (5) Pleuritic chest pain (6) Gastroenteritis (7) Paget disease of bone (8) SBO (small bowel obstruction) (9) GI (gastrointestinal bleed) (10) Partial small bowel obstruction (11) Chronic epigastric pain (12) MDD (major depressive disorder) (13) PUD (peptic ulcer disease) (1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 (15) Anxiety disorder (16) Nausea & vomiting Review of Systems Psychiatric: Reports: prior hx, anxiety, emotional problems Physical Exam General Appearance: alert, moderate distress Neurologic: oriented x 3, responsive, depressed affect Last 24 Hour Vital Signs Date Time Temp Pulse Resp B/P (MAP) Pulse Ox O2 Delivery O2 Flow Rate FiO2 05/21/18 21:00 97.0 75 17 119/73 (88) 96 05/21/18 21:00 Room Air 05/21/18 21:00 73 05/21/18 16:00 97.9 63 20 106/57 (73) 97 05/21/18 16:00 72 05/21/18 12:00 74 05/21/18 11:51 97.5 86 19 106/65 (79) 99 05/21/18 09:00 Room Air 05/21/18 08:00 96.4 82 20 127/86 (100) 97 05/21/18 08:00 77 05/21/18 04:00 97.6 69 18 113/61 (78) 98 05/21/18 03:38 71 05/21/18 03:02 Room Air 05/21/18 01:30 97.0 80 20 143/75 (97) 97 05/21/18 00:40 98.1 75 18 142/82 99 Room Air 05/21/18 00:30 98.1 75 18 142/82 99 Room Air Intake and Output 05/20/18 05/21/18 19:00 07:00 # Voids 4 # Bowel Movements 1 Laboratory Tests Test 05/21/18 06:30 05/21/18 16:12 White Blood Count 4.9 K/UL (4.8-10.8) Red Blood Count 4.42 M/UL (4.20-5.40) Hemoglobin 12.7 G/DL (12.0-16.0) Hematocrit 38.8 % (37.0-47.0) Mean Corpuscular Volume 88 FL (80-99) Mean Corpuscular Hemoglobin 28.9 PG (27.0-31.0) Mean Corpuscular Hemoglobin Concent 32.9 G/DL (32.0-36.0) Red Cell Distribution Width 13.5 % (11.6-14.8) Platelet Count 183 K/UL (150-450) Mean Platelet Volume 9.1 FL (6.5-10.1) Neutrophils (%) (Auto) 67.9 % (45.0-75.0) Lymphocytes (%) (Auto) 19.3 % (20.0-45.0) L Monocytes (%) (Auto) 9.8 % (1.0-10.0) Eosinophils (%) (Auto) 2.3 % (0.0-3.0) Basophils (%) (Auto) 0.6 % (0.0-2.0) Sodium Level 139 MMOL/L (136-145) Potassium Level 4.0 MMOL/L (3.5-5.1) Chloride Level 106 MMOL/L (98-107) Carbon Dioxide Level 27 MMOL/L (21-32) Anion Gap 6 mmol/L (5-15) Blood Urea Nitrogen 12 mg/dL (7-18) Creatinine 0.8 MG/DL (0.55-1.30) Estimat Glomerular Filtration Rate mL/min (>60) Glucose Level 94 MG/DL (74-106) Calcium Level 9.1 MG/DL (8.5-10.1) Troponin I 0.000 ng/mL (0.000-0.056) Height (Feet): 5 Height (Inches): 2.00 Weight (Pounds): 153 Medications Current Medications Medications (Trade) Dose Ordered Sig/Radha Route PRN Reason Start Time Stop Time Status Last Admin Dose Admin Acetaminophen (Tylenol) 650 mg Q4H PRN ORAL Mild Pain (Pain Scale 1-3) 05/21/18 02:15 06/20/18 02:14 Acetaminophen (Tylenol) 650 mg Q4H PRN ORAL fever 05/21/18 02:15 06/20/18 02:14 Dextrose (Dextrose 50%) 25 ml Q30M PRN IV Hypoglycemia 05/21/18 02:15 06/20/18 02:14 Dextrose (Dextrose 50%) 50 ml Q30M PRN IV Hypoglycemia 05/21/18 02:15 06/20/18 02:14 Docusate Sodium (Colace) 200 mg DAILY PRN ORAL Constipation 05/21/18 02:15 06/20/18 02:14 Heparin Sodium (Porcine) (Heparin 5000 units/ml) 5,000 units BID@0900,2100 SUBQ 05/21/18 09:00 06/20/18 08:59 05/21/18 20:30 Magnesium Hydroxide (Mom) 30 ml HSPRN PRN ORAL Constipation 05/21/18 02:15 06/20/18 02:14 Morphine Sulfate (Morphine Sulfate) 2 mg Q4H PRN IVP Moderate Pain (Pain Scale 4-6) 05/21/18 16:00 05/28/18 15:59 Morphine Sulfate (Morphine Sulfate) 4 mg Q4H PRN IVP Severe Pain (Pain Scale 7-10) 05/21/18 16:00 05/28/18 15:59 Ondansetron HCl (Zofran) 4 mg Q4H PRN IVP Nausea & Vomiting 05/21/18 02:15 06/20/18 02:14 Patient Own Medication (Patient's Own Med) 1 ea BID ORAL 05/21/18 18:00 06/20/18 17:59 05/21/18 17:36 Sodium Chloride 1,000 ml @ 50 mls/hr Q20H IV 05/21/18 04:00 06/20/18 03:59 05/21/18 06:33 Sucralfate (Carafate) 1 gm FOUR TIMES A DAY ORAL 05/21/18 09:00 06/20/18 08:59 05/21/18 20:30 Zolpidem Tartrate (Ambien) 5 mg HSPRN PRN ORAL Insomnia 05/21/18 02:15 05/28/18 02:14 Assessment/Plan Problem List: (1) MDD (major depressive disorder) ICD Codes: F32.9 - Major depressive disorder, single episode, unspecified SNOMED: 759628539 (2) Anxiety disorder ICD Codes: F41.9 - Anxiety disorder, unspecified SNOMED: 609466936 Qualifiers: Qualified Codes: F41.9 - Anxiety disorder, unspecified Assessment/Plan Remeron prn Ativan prn provided sugar/Darnell Moss MD May 21, 2018 23:10
[2018-05-21] MEDS ORDERED: LORazepam 0.5mg tab ORAL PRN (23:15)
[2018-05-22] VITALS: BP 115/69
--- NOTE | 2018-05-22 00:42 | Consultation ---
DATE OF CONSULTATION: 05/21/2018 CARDIOLOGY CONSULTATION CONSULTING PHYSICIAN: Calderon Winters M.D. REFERRING PHYSICIAN: Silvino Calvillo M.D. REASON FOR REFERRAL: Chest pain and abdominal pain. HISTORY OF PRESENT ILLNESS: This is an elderly female, who has a history of multiple admissions to different hospitals including [facility] and here at [facility], who presents with again not a bout of abdominal pain actually. She has had frequent episodes of abdominal pain and chest pains, for which she has been hospitalized some here and some [facility] as well. She seems to think that this time is basically more abdominal pain than chest pain. She really not have any shortness of breath. There is no PND or orthopnea, but she uses two pillows for comfort. There is no dizziness or lightheadedness on usual basis, although she occasionally does feel those episodes. She has no heart pounding or palpitations. PAST MEDICAL HISTORY: Her past medical history is positive for history of several hospitalizations as mentioned. She does have diagnosis of history of gastritis, hiatal hernia, gastroesophageal reflux disease, peptic ulcer disease, epigastric abdominal pain secondary to above, Paget's disease of the left femur, osteoarthritis of the lumbar spine, major depressions and anxiety. From a cardiac point of view, she has had several perfusion imagings, one that was performed most recently at [facility] in August 2017 that showed really no significant reversible defect, ejection fraction was 73% and unchanged from prior evaluation in 2010. She subsequently got admitted to the hospital. Again, she has undergone a CT coronary angiography on 04/13/2018 and those images show basically some mild plaque in the left main and mild plaque in the proximal and mid circumflex as well as moderate plaque in the proximal right coronary artery and mild plaque in the mid and distal right coronary artery. It was felt that she has coronary artery atherosclerosis with no significant luminal narrowing and coronary artery calcium score of 180, which is 81 percentile for the patient's age. Her past medical history also includes history of hypertension, osteoarthritis, osteoporosis as well as dizziness. ALLERGIES: She is not allergic to any medications, although allergic to leaf tree, ibuprofen, and oranges, and lactose intolerant. SOCIAL HISTORY: Denies smoking, alcohol, or drugs. REVIEW OF SYSTEMS: GASTROINTESTINAL: Abdominal pain is noted. No nausea or vomiting. No diarrhea. She does have some constipation, which she attributes to eating bad food. GENITOURINARY: Negative. PULMONARY: Negative. CONSTITUTIONAL: Negative. PHYSICAL EXAMINATION: GENERAL: Shows to be elderly female, in no respiratory distress. NECK: Supple. No jugular venous distention. LUNGS: Clear to auscultation and percussion. CARDIAC: S1 is normal. S2 is normal. Regular rate and rhythm. No heaves, thrills, or gallops noted. ABDOMEN: Soft. There is some tenderness to palpation. No guarding. No rigidity. EXTREMITIES: There is no clubbing, cyanosis, nor edema. NEUROLOGICAL: She is awake, alert, responsive, and in no apparent distress. LABORATORY AND DIAGNOSTIC DATA: Laboratory values, white count 4.9, hemoglobin 12.7, and platelet count 183,000. Sodium is 139, potassium 4.0, chloride 106, bicarbonate 27, BUN of 12, creatinine 0.8, and glucose of 94. Troponin two sets are negative. INR is 1 and PTT of 26. X-rays of her chest were performed, no acute findings were noted. The patient has had electrocardiogram in the chart and that shows normal sinus rhythm, no ST or T-wave abnormalities of significant degree. ASSESSMENT AND PLAN: 1. Abdominal pain with history of the same. 2. Gastroesophageal reflux and gastritis. 3. History of coronary atherosclerosis without any evidence of flow-limiting disease based on CT coronary angiography of 03/2018. 4. Obesity. 5. Paget's disease of the femur. Dr. Calvillo, this patient was seen in cardiac consultation. The patient actually denies any chest pain. Her main issue is abdominal pain that likely gastric in origin. Cardiac enzymes are negative. EKG is negative. Ischemia evaluation in 08/2017 at [facility] had been negative. CT coronary angiography did not show any flow-limiting coronary disease, only atherosclerotic disease was noted. I do not favor any further workup at this time. Calderon Winters M.D. DR: WILFRIDO JOB#: [id number] CC:
--- NOTE | 2018-05-22 00:42 | History and Physical Report ---
DATE OF ADMISSION: 05/20/2018 CHIEF COMPLAINT: The patient is a 73-year-old female who presents with complaint of epigastric pain and chest pain. HISTORY OF PRESENT ILLNESS: The patient was admitted to [facility] from 05/07/2018 to 05/09/2018. The patient states history of present illness began 3 hours prior to admission. The patient states she ate Thai bread. The patient began to have epigastric pain. The pain then radiated to the chest. The patient also had nausea without vomiting. The patient presented to [place] emergency room. The patient was admitted for chest pain to rule out acute coronary syndrome. REVIEW OF SYSTEMS: CONSTITUTIONAL: The patient denies weight loss or weight gain. The patient denies fevers or chills. HEENT: The patient denies ear or throat pain. The patient denies headache. CARDIOVASCULAR: The patient complains of chest pain as above. The patient denies palpitations. ABDOMEN: The patient complains of nausea and epigastric pain as above. The patient denies diarrhea or constipation. GENITOURINARY: The patient denies dysuria or increased frequency on urination. NEUROMUSCULAR: The patient denies seizures or generalized weakness. PAST MEDICAL HISTORY: Significant for 1. Gastritis. 2. Gastroesophageal reflux disease. 3. Hiatal hernia. 4. Hypertension. 5. Paget's disease of left femur. 6. Osteoarthritis lumbar spine. PAST SURGICAL HISTORY: Significant for total abdominal hysterectomy in 1972. CURRENT MEDICATIONS: 1. Nexium 40 mg p.o. daily. 2. Zofran 4 mg p.o. q.4 hours as needed 3. Pantoprazole 40 mg p.o. daily. 4. Zantac 150 mg p.o. twice daily. 5. Simethicone 80 mg p.o. q.8 hours as needed. 6. Carafate 1 gram by p.o. twice daily. ALLERGIES: 1. Broccoli. 2. Ibuprofen. 3. Lactose. 4. Milk. 5. Onions. 6. [place] juice. 7. Tomato. SOCIAL HISTORY: The patient is and lives alone. The patient denies tobacco or alcohol use. PHYSICAL EXAMINATION: VITAL SIGNS: Temperature 97.8, respirations 16, pulse 88 to 120, blood pressure 142 to 158 over 80 to 88. GENERAL: The patient is well-developed and well-nourished female, in no apparent distress. HEENT: Eyes, pupils are equal and responsive to light and accommodation. Extraocular movements are intact. NECK: Supple without lymphadenopathy. CHEST: Lungs are clear to auscultation bilaterally without wheezes or rales. CARDIOVASCULAR: Regular rate. S1 and S2 normal without murmurs, rubs, or gallops. ABDOMEN: Soft, nontender, nondistended. Positive bowel sounds. No evidence of hepatosplenomegaly. Currently, no rebound or guarding noted. EXTREMITIES: Negative for clubbing, cyanosis, or edema. RECTAL/ GENITOURINARY: Refused. NEUROLOGICALLY: Cranial nerves II through XII are grossly intact without focal deficits. Motor strength is 5/5 bilaterally. Deep tendon reflexes 2+ plantar. LABORATORY AND DIAGNOSTIC DATA: WBC 6.8, hemoglobin 13.7, hematocrit 41.0, platelets 191,000. Sodium 139, potassium 3.4, chloride 102, CO2 26, BUN 15, creatinine 0.8, glucose 109. Troponin 0.0. ASSESSMENT: This is a 73-year-old female. 1. Chest pain. 2. Epigastric pain. 3. Gastritis. 4. Gastroesophageal reflux disease. 5. History of hiatal hernia. 6. Hypertension. 7. Paget's disease, left femur. 8. Osteoarthritis of the spine. TREATMENT: 1. Chest pain. A Cardiology consultation has been obtained with Dr. Sauceda. Serial troponin levels will be performed. We will follow recommendation of Cardiology, Dr. Sauceda. 2. Epigastric pain/gastritis. A Gastroenterology consultation obtained with Dr. Patrick Zheng. The patient may require endoscopy during this hospitalization. 3. Epigastric pain. Maybe secondary to gastritis versus gastroesophageal reflux disease. We will follow recommendations of Gastroenterology 4. Hypertension, stable off medication. 5. Paget's disease of left femur. 6. Osteoarthritis. Angus Brooks M.D. DR: Savita JOB#: [id number] CC:
[2018-05-22 04:00] VITALS: BP 121/73
[2018-05-22] MEDS: NS w/KCl 20mEq 1,000 ML IV SCH ×3 (05:05→22:45)
[2018-05-22] MEDS ORDERED: Zolpidem 5mg tab ORAL PRN (07:30)
--- NOTE | 2018-05-22 07:59 | NUR ---
HAND-OFF: Report given to ARIEL Moran. Patient is awake with no signs of distress. Vital signs stable.
[2018-05-22 08:00] VITALS: BP 114/60
--- NOTE | 2018-05-22 08:00 | NUR ---
NURSE NOTES: Received report from ARIEL Mathews. Patient is in bed resting with no signs of acute distress and denies pain. Finished eating breakfast. Call light within reach. Bed in lowest position. Will continue to monitor.
[2018-05-22 08:23] LABS: BASOPHILS % (AUTO) 0.8 % (0.0-2.0); EOSINOPHILS % (AUTO) 2.3 % (0.0-3.0); HEMATOCRIT 36.8 % (37.0-47.0); MEAN CORPUSCULAR VOLUME 88 FL (80-99); MONOCYTES % (AUTO) 9.8 % (1.0-10.0); NEUTROPHILS % (AUTO) 64.2 % (45.0-75.0); PLATELET COUNT 202 K/UL (150-450); RED CELL DISTRIBUTION WIDTH 13.1 % (11.6-14.8); WHITE BLOOD COUNT 3.7 K/UL (4.8-10.8)
[2018-05-22 08:33] LABS: ANION GAP 9 mmol/L (5-15); BLOOD UREA NITROGEN 7 mg/dL (7-18); CALCIUM 9.2 MG/DL (8.5-10.1); CARBON DIOXIDE 25 MMOL/L (21-32); CHLORIDE 105 MMOL/L (98-107); CREATININE 0.7 MG/DL (0.55-1.30); POTASSIUM 3.6 MMOL/L (3.5-5.1); SODIUM 139 MMOL/L (136-145)
[2018-05-22] MEDS: RANITIDINE 150 MG ORAL SCH ×2 (09:17→17:21)
[2018-05-22] MEDS: Sucralfate 1gm tab ORAL SCH ×4 (09:17→20:55)
[2018-05-22] MEDS: Heparin 5000 units/ml inj SUBQ SCH ×2 (09:20→20:56)
[2018-05-22] MEDS: Docusate 100mg cap ORAL PRN ×2 (09:23→09:25)
[2018-05-22] MEDS ORDERED: Magnesium Citrate Liq Btl ORAL SCH (10:40)
--- NOTE | 2018-05-22 11:29 | Pulmonology Progress Note ---
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 Assessment/Plan cardio consult reviewed symptomatic treatment GI to see pt might go home if cleared by GI Subjective ROS Limited/Unobtainable: No Interval Events: no new complain Allergies: Coded Allergies: Broccoli (Verified Allergy, Unknown, 04/05/16) IBUPROFEN (Verified Allergy, Unknown, 12/19/08) LACTOSE (Verified Allergy, Unknown, 12/10/15) Lactose intolerant MILK (Verified Allergy, Unknown, 08/15/11) ONION (Verified Allergy, Unknown, 04/05/16) ORANGE JUICE (Verified Allergy, Unknown, 04/05/16) TOMATO (Verified Allergy, Unknown, 04/05/16) Objective Last 24 Hour Vital Signs Date Time Temp Pulse Resp B/P (MAP) Pulse Ox O2 Delivery O2 Flow Rate FiO2 05/22/18 09:00 Room Air 05/22/18 08:00 97.2 88 18 114/60 (78) 97 05/22/18 04:00 96.1 64 16 121/73 (89) 97 05/22/18 04:00 67 05/22/18 00:00 97.5 69 17 115/69 (84) 96 05/22/18 00:00 66 05/21/18 21:00 97.0 75 17 119/73 (88) 96 05/21/18 21:00 Room Air 05/21/18 21:00 73 05/21/18 16:00 97.9 63 20 106/57 (73) 97 05/21/18 16:00 72 05/21/18 12:00 74 05/21/18 11:51 97.5 86 19 106/65 (79) 99 Intake and Output 05/21/18 05/22/18 19:00 07:00 Intake Total 1000 ml 400 ml Balance 1000 ml 400 ml Intake Oral 400 ml IV Total 600 ml 400 ml # Voids 3 # Bowel Movements 1 1 General Appearance: WD/WN HEENT: normocephalic, atraumatic Respiratory/Chest: chest wall non-tender, lungs clear Cardiovascular: normal peripheral pulses Abdomen: normal bowel sounds Genitourinary: normal external genitalia Skin: no rash 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 Laboratory Tests 05/21/18 16:12: Troponin I 0.000 05/22/18 06:30: Troponin I 0.001, White Blood Count 3.7L, Red Blood Count 4.20, Hemoglobin 12.0 , Hematocrit 36.8L, Mean Corpuscular Volume 88, Mean Corpuscular Hemoglobin 28.7 , Mean Corpuscular Hemoglobin Concent 32.7, Red Cell Distribution Width 13.1, Platelet Count 202, Mean Platelet Volume 8.8, Neutrophils (%) (Auto) 64.2, Lymphocytes (%) (Auto) 23.0, Monocytes (%) (Auto) 9.8, Eosinophils (%) (Auto) 2.3, Basophils (%) (Auto) 0.8, Sodium Level 139, Potassium Level 3.6, Chloride Level 105, Carbon Dioxide Level 25, Anion Gap 9, Blood Urea Nitrogen 7, Creatinine 0.7, Estimat Glomerular Filtration Rate , Glucose Level 75, Calcium Level 9.2 Current Medications Medications (Trade) Dose Ordered Sig/Radha Route PRN Reason Start Time Stop Time Status Last Admin Dose Admin Acetaminophen (Tylenol) 650 mg Q4H PRN ORAL Mild Pain (Pain Scale 1-3) 05/21/18 02:15 06/20/18 02:14 Acetaminophen (Tylenol) 650 mg Q4H PRN ORAL fever 05/21/18 02:15 06/20/18 02:14 Dextrose (Dextrose 50%) 25 ml Q30M PRN IV Hypoglycemia 05/21/18 02:15 06/20/18 02:14 Dextrose (Dextrose 50%) 50 ml Q30M PRN IV Hypoglycemia 05/21/18 02:15 06/20/18 02:14 Docusate Sodium (Colace) 200 mg DAILY PRN ORAL Constipation 05/21/18 02:15 06/20/18 02:14 Heparin Sodium (Porcine) (Heparin 5000 units/ml) 5,000 units BID@0900,2100 SUBQ 05/21/18 09:00 06/20/18 08:59 05/22/18 09:20 Lorazepam (Ativan) 2 mg Q6H PRN ORAL For Anxiety 05/21/18 23:15 05/28/18 23:14 Magnesium Hydroxide (Mom) 30 ml HSPRN PRN ORAL Constipation 05/21/18 02:15 06/20/18 02:14 Magnesium Citrate (Citrate Of Magnesia) 300 ml ONCE ORAL 05/22/18 10:40 05/22/18 12:00 05/22/18 10:55 Mirtazapine (Remeron) 7.5 mg BEDTIME PRN ORAL insomnia 05/21/18 23:15 06/20/18 23:14 Morphine Sulfate (Morphine Sulfate) 2 mg Q4H PRN IVP Moderate Pain (Pain Scale 4-6) 05/21/18 16:00 05/28/18 15:59 Morphine Sulfate (Morphine Sulfate) 4 mg Q4H PRN IVP Severe Pain (Pain Scale 7-10) 05/21/18 16:00 05/28/18 15:59 Ondansetron HCl (Zofran) 4 mg Q4H PRN IVP Nausea & Vomiting 05/21/18 02:15 06/20/18 02:14 Patient Own Medication (Patient's Own Med) 1 ea BID ORAL 05/21/18 18:00 06/20/18 17:59 05/22/18 09:17 Sodium Chloride 1,000 ml @ 50 mls/hr Q20H IV 05/21/18 04:00 06/20/18 03:59 05/22/18 05:05 Sucralfate (Carafate) 1 gm FOUR TIMES A DAY ORAL 05/21/18 09:00 06/20/18 08:59 05/22/18 09:17 Zolpidem Tartrate (Ambien) 5 mg HSPRN PRN ORAL Insomnia 05/22/18 07:30 05/28/18 02:14 Chano Ling MD May 22, 2018 11:29
[2018-05-22 11:44] VITALS: BP 133/74
--- NOTE | 2018-05-22 12:15 | GI Initial Consult Note ---
History of Present Illness General Date patient seen: May 22, 2018 Time patient seen: 12:09 Reason for Hospitalization: Chest Pain Referring physician: DESTINEY PEDRAZA Reason for Consultation: ABDOMINAL PAIN Present Illness HPI Patient presents with chest pain. Substernal and crushing. In addition to that she feels nausea and hasn't vomited. She denies any diarrhea or melena. She stopped taking Nexium and is taking sucralfate and ranitidine. She feels indigestion but also pressure or chest. She was recently admitted for similar problem. The patient is anxious. She stopped Nexium because of reports of associated renal dysfunction. She denies coffee-ground emesis, hematemesis. She denies melena. No joint pain or headache. No rashes. GI consulted for abdominal pain. Patient is known to us from prior admissions, was seen in our clinic approximately 1 month ago. The patient suffers from chronic GERD, has been on multiple antacids to help relieve her pain. She has history of EGD greater than 20 years ago, but refuses at this time fearing that she will go into cardiac arrest. The patient is scheduled with us in the clinic for colonoscopy in July of 2018. Patient currently complains of constipation stating that she has had no bowel movement for approximately 3 days. The patient is ambulatory, no apparent distress, states that her chest pain versus abdominal pain is resolved at this time. 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 Major depressive disorder Anxiety Home Meds Active Scripts Lidocaine HCl 2% Viscous (Lidocaine HCl 2% Viscous) 100 Ml Solution, 15 ML ORAL QID, #200 ML Prov:Lise Manuel 12/08/17 Simethicone* (SIMETHICONE*) 80 Mg Tab.chew, 80 MG ORAL Q8H PRN for GAS PAIN, # 10 TAB 0 Refills Prov:Lise aMnuel 12/08/17 Ranitidine Hcl* (ZANTAC*) 150 Mg Tablet, 150 MG ORAL TWICE A DAY for 10 Days, # 20 TAB Prov:Lise Manuel 12/08/17 Ondansetron Odt* (ZOFRAN ODT*) 4 Mg Tab.rapdis, 4 MG BC EVERY 6 HOURS PRN for Nausea & Vomiting, #20 TAB 0 Refills Prov:Cesar Elkins MD 10/15/17 Esomeprazole Magnesium (NEXIUM) 40 Mg Capsule.dr, 40 MG ORAL DAILY, #30 CAP Prov:Cesar Elkins MD 10/15/17 Reported Medications Sucralfate* (CARAFATE*) 1 Gm Tablet, 1 GM ORAL BID for 3 Days, TAB 05/09/18 Pantoprazole* (PANTOPRAZOLE*) 40 Mg Tablet.dr, 40 MG ORAL DAILY, TAB 07/29/17 Med list reviewed/reconciled: Yes Allergies: Coded Allergies: Broccoli (Verified Allergy, Unknown, 04/05/16) IBUPROFEN (Verified Allergy, Unknown, 12/19/08) LACTOSE (Verified Allergy, Unknown, 12/10/15) Lactose intolerant MILK (Verified Allergy, Unknown, 08/15/11) ONION (Verified Allergy, Unknown, 04/05/16) ORANGE JUICE (Verified Allergy, Unknown, 04/05/16) TOMATO (Verified Allergy, Unknown, 04/05/16) Patient History History Provided By: Patient, Medical Record PMH Narrative Past Medical History: see triage record Social History: Denies: smoking, alcohol use Social History Narrative From home Reviewed Nursing Documentation: PMH: Agreed; PSxH: Agreed Nursing Documentation-PMH Hx Cardiac Problems: Yes Hx Hypertension: Yes Hx Pacemaker: No Hx Asthma: No Hx COPD: No Hx Diabetes: No Hx Cancer: No Hx Gastrointestinal Problems: Yes - gastritis, Gerd, Hurnia Hx Dialysis: No Hx Neurological Problems: No Hx Cerebrovascular Accident: No Hx Seizures: No Social History: Denies: smoking, alcohol use, drug use, other Review of Systems All Other Systems: negative except mentioned in HPI Physical Exam Vital Signs Date Time Temp Pulse Resp B/P (MAP) Pulse Ox O2 Delivery O2 Flow Rate FiO2 05/20/18 20:20 120 16 167/96 96 05/20/18 21:23 97.8 Room Air Sp02 EP Interpretation: reviewed, normal Labs Laboratory Tests Test 05/21/18 16:12 05/22/18 06:30 Troponin I 0.000 ng/mL (0.000-0.056) 0.001 ng/mL (0.000-0.056) White Blood Count 3.7 K/UL (4.8-10.8) L Red Blood Count 4.20 M/UL (4.20-5.40) Hemoglobin 12.0 G/DL (12.0-16.0) Hematocrit 36.8 % (37.0-47.0) L Mean Corpuscular Volume 88 FL (80-99) Mean Corpuscular Hemoglobin 28.7 PG (27.0-31.0) Mean Corpuscular Hemoglobin Concent 32.7 G/DL (32.0-36.0) Red Cell Distribution Width 13.1 % (11.6-14.8) Platelet Count 202 K/UL (150-450) Mean Platelet Volume 8.8 FL (6.5-10.1) Neutrophils (%) (Auto) 64.2 % (45.0-75.0) Lymphocytes (%) (Auto) 23.0 % (20.0-45.0) Monocytes (%) (Auto) 9.8 % (1.0-10.0) Eosinophils (%) (Auto) 2.3 % (0.0-3.0) Basophils (%) (Auto) 0.8 % (0.0-2.0) Sodium Level 139 MMOL/L (136-145) Potassium Level 3.6 MMOL/L (3.5-5.1) Chloride Level 105 MMOL/L (98-107) Carbon Dioxide Level 25 MMOL/L (21-32) Anion Gap 9 mmol/L (5-15) Blood Urea Nitrogen 7 mg/dL (7-18) Creatinine 0.7 MG/DL (0.55-1.30) Estimat Glomerular Filtration Rate mL/min (>60) Glucose Level 75 MG/DL (74-106) Calcium Level 9.2 MG/DL (8.5-10.1) General Appearance: well appearing, no apparent distress, alert Head: normocephalic EENT: PERRL/EOMI, normal ENT inspection Neck: supple Respiratory: normal breath sounds, no respiratory distress Cardiovascular: normal rate Gastrointestinal: normal inspection, non tender, soft, normal bowel sounds, non -distended Rectal: deferred Genitourinary: no CVA tenderness Musculoskeletal: normal inspection, back normal Neurologic: normal inspection, alert, oriented x3, responsive Psychiatric: normal inspection, judgement/insight normal, memory normal Skin: normal inspection, normal color, no rash, warm/dry, palpation normal, well hydrated Lymphatic: normal inspection, no adenopathy Current Medications Current Medications Medications (Trade) Dose Ordered Sig/Radha Route PRN Reason Start Time Stop Time Status Last Admin Dose Admin Acetaminophen (Tylenol) 650 mg Q4H PRN ORAL Mild Pain (Pain Scale 1-3) 05/21/18 02:15 06/20/18 02:14 Acetaminophen (Tylenol) 650 mg Q4H PRN ORAL fever 05/21/18 02:15 06/20/18 02:14 Dextrose (Dextrose 50%) 25 ml Q30M PRN IV Hypoglycemia 05/21/18 02:15 06/20/18 02:14 Dextrose (Dextrose 50%) 50 ml Q30M PRN IV Hypoglycemia 05/21/18 02:15 06/20/18 02:14 Docusate Sodium (Colace) 200 mg DAILY PRN ORAL Constipation 05/21/18 02:15 06/20/18 02:14 Heparin Sodium (Porcine) (Heparin 5000 units/ml) 5,000 units BID@0900,2100 SUBQ 05/21/18 09:00 06/20/18 08:59 05/22/18 09:20 Lorazepam (Ativan) 2 mg Q6H PRN ORAL For Anxiety 05/21/18 23:15 05/28/18 23:14 Magnesium Hydroxide (Mom) 30 ml HSPRN PRN ORAL Constipation 05/21/18 02:15 06/20/18 02:14 Mirtazapine (Remeron) 7.5 mg BEDTIME PRN ORAL insomnia 05/21/18 23:15 06/20/18 23:14 Morphine Sulfate (Morphine Sulfate) 2 mg Q4H PRN IVP Moderate Pain (Pain Scale 4-6) 05/21/18 16:00 05/28/18 15:59 Morphine Sulfate (Morphine Sulfate) 4 mg Q4H PRN IVP Severe Pain (Pain Scale 7-10) 05/21/18 16:00 05/28/18 15:59 Ondansetron HCl (Zofran) 4 mg Q4H PRN IVP Nausea & Vomiting 05/21/18 02:15 06/20/18 02:14 Patient Own Medication (Patient's Own Med) 1 ea BID ORAL 05/21/18 18:00 06/20/18 17:59 05/22/18 09:17 Sodium Chloride 1,000 ml @ 50 mls/hr Q20H IV 05/21/18 04:00 06/20/18 03:59 05/22/18 05:05 Sucralfate (Carafate) 1 gm FOUR TIMES A DAY ORAL 05/21/18 09:00 06/20/18 08:59 05/22/18 09:17 Zolpidem Tartrate (Ambien) 5 mg HSPRN PRN ORAL Insomnia 05/22/18 07:30 05/28/18 02:14 GI: Plan Problems: (1) GERD (gastroesophageal reflux disease) (2) Gastroenteritis (3) Hiatal hernia (4) Nausea & vomiting (5) Anxiety disorder (6) PUD (peptic ulcer disease) Plan refused EGD, will schedule if patient agrees advance to regular diet ppi, consider adding H2B qhs if necessary GI cocktail prn RD for dietary education bowel regime >> magnesium citrate x1 zofran prn fu labs, iron panel Discussed with Dr. Zheng. Thank you for this patient referral, we will follow. The patient was seen and examined at bedside and all new and available data was reviewed in the patients chart. I agree with the above findings, impression and plan. (Patient seen earlier today. Signature stamp does not reflect patient encounter time.). - MD Arlin Kumar,[facility] May 22, 2018 12:15
--- NOTE | 2018-05-22 14:07 | NUR ---
NURSE NOTES: spoke with moris FORM COVERER. per Moris patient is for discharge home and to see dr leigh to GI consult. will take note and carry out.
[2018-05-22 16:00] VITALS: BP 106/63
--- NOTE | 2018-05-22 16:31 | Internal Med Progress Note ---
Subjective Physician Name Silvino Calvillo Attending Physician Silvino Calvillo MD Current Medications Medications (Trade) Dose Ordered Sig/Radha Route PRN Reason Start Time Stop Time Status Last Admin Dose Admin Acetaminophen (Tylenol) 650 mg Q4H PRN ORAL Mild Pain (Pain Scale 1-3) 05/21/18 02:15 06/20/18 02:14 Acetaminophen (Tylenol) 650 mg Q4H PRN ORAL fever 05/21/18 02:15 06/20/18 02:14 Dextrose (Dextrose 50%) 25 ml Q30M PRN IV Hypoglycemia 05/21/18 02:15 06/20/18 02:14 Dextrose (Dextrose 50%) 50 ml Q30M PRN IV Hypoglycemia 05/21/18 02:15 06/20/18 02:14 Docusate Sodium (Colace) 200 mg DAILY PRN ORAL Constipation 05/21/18 02:15 06/20/18 02:14 Heparin Sodium (Porcine) (Heparin 5000 units/ml) 5,000 units BID@0900,2100 SUBQ 05/21/18 09:00 06/20/18 08:59 05/22/18 09:20 Lorazepam (Ativan) 2 mg Q6H PRN ORAL For Anxiety 05/21/18 23:15 05/28/18 23:14 Magnesium Hydroxide (Mom) 30 ml HSPRN PRN ORAL Constipation 05/21/18 02:15 06/20/18 02:14 Mirtazapine (Remeron) 7.5 mg BEDTIME PRN ORAL insomnia 05/21/18 23:15 06/20/18 23:14 Morphine Sulfate (Morphine Sulfate) 2 mg Q4H PRN IVP Moderate Pain (Pain Scale 4-6) 05/21/18 16:00 05/28/18 15:59 Morphine Sulfate (Morphine Sulfate) 4 mg Q4H PRN IVP Severe Pain (Pain Scale 7-10) 05/21/18 16:00 05/28/18 15:59 Ondansetron HCl (Zofran) 4 mg Q4H PRN IVP Nausea & Vomiting 05/21/18 02:15 06/20/18 02:14 Patient Own Medication (Patient's Own Med) 1 ea BID ORAL 05/21/18 18:00 06/20/18 17:59 05/22/18 09:17 Sodium Chloride 1,000 ml @ 50 mls/hr Q20H IV 05/21/18 04:00 06/20/18 03:59 05/22/18 05:05 Sucralfate (Carafate) 1 gm FOUR TIMES A DAY ORAL 05/21/18 09:00 06/20/18 08:59 05/22/18 13:18 Zolpidem Tartrate (Ambien) 5 mg HSPRN PRN ORAL Insomnia 05/22/18 07:30 05/28/18 02:14 Allergies: Coded Allergies: Broccoli (Verified Allergy, Unknown, 04/05/16) IBUPROFEN (Verified Allergy, Unknown, 12/19/08) LACTOSE (Verified Allergy, Unknown, 12/10/15) Lactose intolerant MILK (Verified Allergy, Unknown, 08/15/11) ONION (Verified Allergy, Unknown, 04/05/16) ORANGE JUICE (Verified Allergy, Unknown, 04/05/16) TOMATO (Verified Allergy, Unknown, 04/05/16) Subjective awake, alert, responsive, still C/O epigastric pain Objective Last Vital Signs Date Time Temp Pulse Resp B/P (MAP) Pulse Ox O2 Delivery O2 Flow Rate FiO2 05/22/18 11:44 97.2 97 18 133/74 (93) 98 05/22/18 09:00 Room Air Laboratory Tests Test 05/22/18 06:30 White Blood Count 3.7 K/UL (4.8-10.8) L Red Blood Count 4.20 M/UL (4.20-5.40) Hemoglobin 12.0 G/DL (12.0-16.0) Hematocrit 36.8 % (37.0-47.0) L Mean Corpuscular Volume 88 FL (80-99) Mean Corpuscular Hemoglobin 28.7 PG (27.0-31.0) Mean Corpuscular Hemoglobin Concent 32.7 G/DL (32.0-36.0) Red Cell Distribution Width 13.1 % (11.6-14.8) Platelet Count 202 K/UL (150-450) Mean Platelet Volume 8.8 FL (6.5-10.1) Neutrophils (%) (Auto) 64.2 % (45.0-75.0) Lymphocytes (%) (Auto) 23.0 % (20.0-45.0) Monocytes (%) (Auto) 9.8 % (1.0-10.0) Eosinophils (%) (Auto) 2.3 % (0.0-3.0) Basophils (%) (Auto) 0.8 % (0.0-2.0) Sodium Level 139 MMOL/L (136-145) Potassium Level 3.6 MMOL/L (3.5-5.1) Chloride Level 105 MMOL/L (98-107) Carbon Dioxide Level 25 MMOL/L (21-32) Anion Gap 9 mmol/L (5-15) Blood Urea Nitrogen 7 mg/dL (7-18) Creatinine 0.7 MG/DL (0.55-1.30) Estimat Glomerular Filtration Rate mL/min (>60) Glucose Level 75 MG/DL (74-106) Calcium Level 9.2 MG/DL (8.5-10.1) Troponin I 0.001 ng/mL (0.000-0.056) Intake and Output 05/21/18 05/22/18 19:00 07:00 Intake Total 1000 ml 400 ml Balance 1000 ml 400 ml Intake Oral 400 ml IV Total 600 ml 400 ml # Voids 3 # Bowel Movements 1 1 Objective General: No acute distress, awake and alert HEENT: NCAT, sclera anicteric, PERRL, EOMI. Neck: Supple, no significant jugular venous distention, Lungs: Good inspiratory effort, clear to auscultation bilaterally, no Wheeze or Rales. Heart: Regular rate and rhythm, normal S1/S2, no murmurs/gallops Abdomen: soft, epigastric tenderness, nondistended. Normoactive bowel sounds. Extremities: No Cyanosis , clubbing or edema. Neuro: A&O x 3, Able to move all extremities Skin: warm, no rashes or lesions Psych: Normal mood and affect Assessment/Plan Assessment/Plan 1. Atypical Chest pain. 2. Epigastric pain. 3. Gastritis. 4. Gastroesophageal reflux disease. 5. History of hiatal hernia. 6. Hypertension. 7. Paget's disease, left femur. 8. Osteoarthritis of the spine. Plan: Dc Telemetry, patient had extensive cardiac work up less than 1 year ago at [facility] with negative results. discuss with patient regarding EGD and colonoscopy, she finally agreed to be done as out patient. transfer to med-surg unit Fu with Dr. Zheng recommendations. Dc home in . Silvino Calvillo MD May 22, 2018 16:31
--- NOTE | 2018-05-22 16:31 | NUR ---
NURSE NOTES: Patient was adamant on staying in the hospital with concerns about abdomen discomfort Spoke with Dr. Calvillo. Order entered to be transferred to med/surg by Dr. Calvillo. Discharge order cancelled and charge nurse is aware.
--- NOTE | 2018-05-22 19:02 | NUR ---
NURSE NOTES: Received pt. and report from ARIEL Moran. Pt. is resting in bed with family member at bedside. Pt. has a transfer order to med-surg. Awaiting for room assignment. IV site is intact, asymptomatic, and patent currently running N/S with KCl 20 meq @ 50cc/hr. Bed is in the lowest position and locked. Call light within reach. pulverizer feeder is removed. No acute distress noted at this time. Will continue of care until transfer.
--- NOTE | 2018-05-22 19:12 | NUR ---
HAND-OFF: Report given to ARIEL Peña. In addition, patient states she had a BM at 5pm today.
[2018-05-22 20:00] VITALS: BP 115/67
--- NOTE | 2018-05-22 21:15 | NUR ---
TRANSFER TO FLOOR: Patient transferred to [facility], room 401-1 via bed, per Dr. Calvillo's order. Pt. transferred to floor without any incident. Report given to ARIEL Mars. Belongings list checked and medications given to ARIEL Mars. Orders transferred. Family was informed prior to transferred. No acute distress noted at this time. Plan of care endorsed.
--- NOTE | 2018-05-22 21:30 | NUR ---
NURSE NOTES: Received report and patient from My, RN via transfer from Tele. Patient A&Ox4, in stable condition. Belongings checked and accounted. On room air, no signs of distress or labored breathing. IV intact, patent, and infusing IV fluids. [place] in both ears, wears hearing aids. Patient ambulatory. Bed in lowest position with call light in reach. Will continue to monitor.
--- NOTE | 2018-05-22 22:27 | General Progress Note ---
Assessment/Plan Problem List: (1) MDD (major depressive disorder) ICD Codes: F32.9 - Major depressive disorder, single episode, unspecified SNOMED: 791938871 (2) Anxiety disorder ICD Codes: F41.9 - Anxiety disorder, unspecified SNOMED: 360956883 Qualifiers: Qualified Codes: F41.9 - Anxiety disorder, unspecified Status: unchanged Assessment/Plan Remeron prn Ativan prn provided ro/st Subjective Neurologic/Psychiatric: Reports: anxiety Allergies: Coded Allergies: Broccoli (Verified Allergy, Unknown, 04/05/16) IBUPROFEN (Verified Allergy, Unknown, 12/19/08) LACTOSE (Verified Allergy, Unknown, 12/10/15) Lactose intolerant MILK (Verified Allergy, Unknown, 08/15/11) ONION (Verified Allergy, Unknown, 04/05/16) ORANGE JUICE (Verified Allergy, Unknown, 04/05/16) TOMATO (Verified Allergy, Unknown, 04/05/16) Objective Last 24 Hour Vital Signs Date Time Temp Pulse Resp B/P (MAP) Pulse Ox O2 Delivery O2 Flow Rate FiO2 05/22/18 20:00 97.2 80 19 115/67 (83) 98 05/22/18 16:00 97.7 92 18 106/63 (77) 96 05/22/18 11:44 97.2 97 18 133/74 (93) 98 05/22/18 09:00 Room Air 05/22/18 08:00 97.2 88 18 114/60 (78) 97 05/22/18 07:34 85 05/22/18 07:34 85 05/22/18 04:00 96.1 64 16 121/73 (89) 97 05/22/18 04:00 67 05/22/18 00:00 97.5 69 17 115/69 (84) 96 05/22/18 00:00 66 Intake and Output 05/21/18 05/22/18 18:59 06:59 Intake Total 800 ml 600 ml Balance 800 ml 600 ml Intake Oral 400 ml IV Total 400 ml 600 ml # Voids 3 # Bowel Movements 1 1 Laboratory Tests 05/22/18 06:30: White Blood Count 3.7L, Red Blood Count 4.20, Hemoglobin 12.0, Hematocrit 36.8L , Mean Corpuscular Volume 88, Mean Corpuscular Hemoglobin 28.7, Mean Corpuscular Hemoglobin Concent 32.7, Red Cell Distribution Width 13.1, Platelet Count 202, Mean Platelet Volume 8.8, Neutrophils (%) (Auto) 64.2, Lymphocytes (% ) (Auto) 23.0, Monocytes (%) (Auto) 9.8, Eosinophils (%) (Auto) 2.3, Basophils ( %) (Auto) 0.8, Sodium Level 139, Potassium Level 3.6, Chloride Level 105, Carbon Dioxide Level 25, Anion Gap 9, Blood Urea Nitrogen 7, Creatinine 0.7, Estimat Glomerular Filtration Rate , Glucose Level 75, Calcium Level 9.2, Troponin I 0.001 Height (Feet): 5 Height (Inches): 2.00 Weight (Pounds): 153 General Appearance: alert Neurologic: oriented x 3, responsive, depressed affect Darnell Zuniga MD May 22, 2018 22:27
[2018-05-22] MEDS ORDERED: LORazepam 0.5mg tab ORAL PRN (23:15)
[2018-05-22] MEDS ORDERED: LORazepam 1mg tab ORAL PRN (23:48)
[2018-05-23] VITALS: BP 103/51
[2018-05-23] MEDS ORDERED: Morphine Sulfate 4mg/ml Inj (IV/IM USE ONLY) IVP PRN
[2018-05-23] MEDS ORDERED: Milk of Magnesia 30ml Ud ORAL PRN (02:15)
[2018-05-23 04:00] VITALS: BP 121/73
[2018-05-23 07:29] LABS: ANION GAP 10 mmol/L (5-15); BLOOD UREA NITROGEN 11 mg/dL (7-18); CALCIUM 9.6 MG/DL (8.5-10.1); CARBON DIOXIDE 26 MMOL/L (21-32); CHLORIDE 106 MMOL/L (98-107); CREATININE 0.8 MG/DL (0.55-1.30); POTASSIUM 3.7 MMOL/L (3.5-5.1); SODIUM 142 MMOL/L (136-145)
[2018-05-23] MEDS ORDERED: Zolpidem 5mg tab ORAL PRN (07:30)
[2018-05-23 07:33] LABS: % IRON SATURATION 21 % (15-50); IRON 37 ug/dL (50-175); TOTAL IRON BINDING CAPACITY 180 ug/dL (250-450)
[2018-05-23 07:44] LABS: HEMATOCRIT 37.6 % (37.0-47.0); HEMOGLOBIN 12.5 G/DL (12.0-16.0); MEAN CORPUSCULAR VOLUME 87 FL (80-99); PLATELET COUNT 183 K/UL (150-450); RED BLOOD COUNT 4.31 M/UL (4.20-5.40); RED CELL DISTRIBUTION WIDTH 13.1 % (11.6-14.8); WHITE BLOOD COUNT 3.2 K/UL (4.8-10.8)
--- NOTE | 2018-05-23 07:52 | NUR ---
HAND-OFF: Report given to ANABELLE Fuller.
[2018-05-23 08:00] VITALS: BP 124/70
--- NOTE | 2018-05-23 08:00 | NUR ---
NURSE NOTES: received patient A/A/Ox4, ambulatory with a steady gait. No acute resp distress noted. keep bed in the lowest position. siderails are up x2. will cont to monitor.
[2018-05-23] MEDS: Sucralfate 1gm tab ORAL SCH ×4 (08:16→20:45)
[2018-05-23] MEDS: Heparin 5000 units/ml inj SUBQ SCH ×2 (08:17→20:46)
[2018-05-23] MEDS ORDERED: Docusate 100mg cap ORAL PRN (09:00)
--- NOTE | 2018-05-23 09:57 | General Progress Note ---
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 ICD Codes: M88.862 - Osteitis deformans of left lower leg SNOMED: 1894737, 290387066 (4) Chronic epigastric pain ICD Codes: R10.13 - Epigastric pain; G89.29 - Other chronic pain SNOMED: 41232409, 15079422 (5) Hiatal hernia ICD Codes: K44.9 - Hiatal hernia SNOMED: 52008224 (6) GERD (gastroesophageal reflux disease) ICD Codes: K21.9 - Gastro-esophageal reflux disease without esophagitis SNOMED: 587851880 Assessment/Plan ppi and carafate patient requesting EGD and colonoscopy as in house for Friday fu labs Subjective ROS Limited/Unobtainable: Yes Allergies: Coded Allergies: Broccoli (Verified Allergy, Unknown, 04/05/16) IBUPROFEN (Verified Allergy, Unknown, 12/19/08) LACTOSE (Verified Allergy, Unknown, 12/10/15) Lactose intolerant MILK (Verified Allergy, Unknown, 08/15/11) ONION (Verified Allergy, Unknown, 04/05/16) ORANGE JUICE (Verified Allergy, Unknown, 04/05/16) TOMATO (Verified Allergy, Unknown, 04/05/16) Subjective abd pain Objective Last 24 Hour Vital Signs Date Time Temp Pulse Resp B/P (MAP) Pulse Ox O2 Delivery O2 Flow Rate FiO2 05/23/18 08:00 96.8 91 19 124/70 (88) 95 05/23/18 04:00 97.7 83 19 121/73 (89) 100 05/23/18 00:00 97.7 71 16 103/51 (68) 97 05/22/18 21:00 Room Air 05/22/18 20:00 97.2 80 19 115/67 (83) 98 05/22/18 16:00 97.7 92 18 106/63 (77) 96 05/22/18 11:44 97.2 97 18 133/74 (93) 98 Intake and Output 05/22/18 05/23/18 19:00 07:00 Intake Total 910 ml Balance 910 ml Intake Oral 360 ml IV Total 550 ml # Voids 4 1 # Bowel Movements 2 1 Laboratory Tests 05/23/18 05:35: White Blood Count 3.2L, Red Blood Count 4.31, Hemoglobin 12.5, Hematocrit 37.6, Mean Corpuscular Volume 87, Mean Corpuscular Hemoglobin 29.1, Mean Corpuscular Hemoglobin Concent 33.3, Red Cell Distribution Width 13.1, Platelet Count 183, Mean Platelet Volume 8.2, Neutrophils (%) (Auto) , Lymphocytes (%) (Auto) , Monocytes (%) (Auto) , Eosinophils (%) (Auto) , Basophils (%) (Auto) , Neutrophils % (Manual) [Pending], Lymphocytes % (Manual) [Pending], Platelet Estimate [Pending], Platelet Morphology [Pending], Sodium Level 142, Potassium Level 3.7, Chloride Level 106, Carbon Dioxide Level 26, Anion Gap 10, Blood Urea Nitrogen 11, Creatinine 0.8, Estimat Glomerular Filtration Rate , Glucose Level 81, Calcium Level 9.6, Iron Level 37L, Total Iron Binding Capacity 180L, Percent Iron Saturation 21, Unsaturated Iron Binding 143 Height (Feet): 5 Height (Inches): 2.00 Weight (Pounds): 153 General Appearance: alert EENT: normal ENT inspection Neck: supple Cardiovascular: normal rate Respiratory/Chest: decreased breath sounds Abdomen: normal bowel sounds, non tender, soft Extremities: non-tender Patrick Zheng MD May 23, 2018 09:57
[2018-05-23 11:58] VITALS: BP 129/67
--- NOTE | 2018-05-23 13:03 | Pulmonology Progress Note ---
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 Assessment/Plan GI want to do upper and lower endoscopy cardio consult reviewed symptomatic treatment feeling better Subjective ROS Limited/Unobtainable: No Constitutional: Reports: no symptoms HEENT: Repors: no symptoms Allergies: Coded Allergies: Broccoli (Verified Allergy, Unknown, 04/05/16) IBUPROFEN (Verified Allergy, Unknown, 12/19/08) LACTOSE (Verified Allergy, Unknown, 12/10/15) Lactose intolerant MILK (Verified Allergy, Unknown, 08/15/11) ONION (Verified Allergy, Unknown, 04/05/16) ORANGE JUICE (Verified Allergy, Unknown, 04/05/16) TOMATO (Verified Allergy, Unknown, 04/05/16) Objective Last 24 Hour Vital Signs Date Time Temp Pulse Resp B/P (MAP) Pulse Ox O2 Delivery O2 Flow Rate FiO2 05/23/18 11:58 97.9 78 19 129/67 (87) 95 05/23/18 10:03 Room Air 05/23/18 08:00 96.8 91 19 124/70 (88) 95 05/23/18 04:00 97.7 83 19 121/73 (89) 100 05/23/18 00:00 97.7 71 16 103/51 (68) 97 05/22/18 21:00 Room Air 05/22/18 20:00 97.2 80 19 115/67 (83) 98 05/22/18 16:00 97.7 92 18 106/63 (77) 96 Intake and Output 05/22/18 05/23/18 19:00 07:00 Intake Total 910 ml Balance 910 ml Intake Oral 360 ml IV Total 550 ml # Voids 4 1 # Bowel Movements 2 1 Objective General Appearance: WD/WN HEENT: normocephalic, atraumatic Respiratory/Chest: chest wall non-tender, lungs clear Cardiovascular: normal peripheral pulses Abdomen: normal bowel sounds Genitourinary: normal external genitalia Skin: no rash 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 Laboratory Tests 05/23/18 05:35: White Blood Count 3.2L, Red Blood Count 4.31, Hemoglobin 12.5, Hematocrit 37.6, Mean Corpuscular Volume 87, Mean Corpuscular Hemoglobin 29.1, Mean Corpuscular Hemoglobin Concent 33.3, Red Cell Distribution Width 13.1, Platelet Count 183, Mean Platelet Volume 8.2, Neutrophils (%) (Auto) , Lymphocytes (%) (Auto) , Monocytes (%) (Auto) , Eosinophils (%) (Auto) , Basophils (%) (Auto) , Differential Total Cells Counted 100, Neutrophils % (Manual) 48, Lymphocytes % ( Manual) 34, Monocytes % (Manual) 14H, Eosinophils % (Manual) 3, Basophils % ( Manual) 1, Band Neutrophils 0, Platelet Estimate Adequate, Platelet Morphology Normal, Red Blood Cell Morphology Normal, Sodium Level 142, Potassium Level 3.7 , Chloride Level 106, Carbon Dioxide Level 26, Anion Gap 10, Blood Urea Nitrogen 11, Creatinine 0.8, Estimat Glomerular Filtration Rate , Glucose Level 81, Calcium Level 9.6, Iron Level 37L, Total Iron Binding Capacity 180L, Percent Iron Saturation 21, Unsaturated Iron Binding 143 Current Medications Medications (Trade) Dose Ordered Sig/Radha Route PRN Reason Start Time Stop Time Status Last Admin Dose Admin Acetaminophen (Tylenol) 650 mg Q4H PRN ORAL Mild Pain (Pain Scale 1-3) 05/23/18 02:15 06/20/18 02:14 Acetaminophen (Tylenol) 650 mg Q4H PRN ORAL fever 05/23/18 02:15 06/20/18 02:14 Dextrose (Dextrose 50%) 25 ml Q30M PRN IV Hypoglycemia 05/22/18 22:45 06/20/18 02:14 Dextrose (Dextrose 50%) 50 ml Q30M PRN IV Hypoglycemia 05/22/18 22:45 06/20/18 02:14 Docusate Sodium (Colace) 200 mg DAILY PRN ORAL Constipation 05/23/18 09:00 06/20/18 02:14 Heparin Sodium (Porcine) (Heparin 5000 units/ml) 5,000 units BID@0900,2100 SUBQ 05/23/18 09:00 06/20/18 08:59 05/23/18 08:17 Lorazepam (Ativan) 2 mg Q6H PRN ORAL For Anxiety 05/22/18 23:48 05/28/18 23:14 Magnesium Hydroxide (Mom) 30 ml HSPRN PRN ORAL Constipation 05/23/18 02:15 06/20/18 02:14 Mirtazapine (Remeron) 7.5 mg BEDTIME PRN ORAL insomnia 05/23/18 21:00 06/20/18 23:14 Morphine Sulfate (Morphine Sulfate) 2 mg Q4H PRN IVP Moderate Pain (Pain Scale 4-6) 05/23/18 00:00 05/28/18 15:59 Morphine Sulfate (Morphine Sulfate) 4 mg Q4H PRN IVP Severe Pain (Pain Scale 7-10) 05/23/18 00:00 05/28/18 15:59 Ondansetron HCl (Zofran) 4 mg Q4H PRN IVP Nausea & Vomiting 05/23/18 02:15 06/20/18 02:14 Pantoprazole (Protonix) 40 mg EVERY 12 HOURS IVP 05/23/18 21:00 06/22/18 20:59 Patient Own Medication (Patient's Own Med) 1 ea BID ORAL 05/23/18 09:00 06/20/18 17:59 05/23/18 08:16 Sodium Chloride 1,000 ml @ 50 mls/hr Q20H IV 05/22/18 22:45 06/20/18 03:59 Sucralfate (Carafate) 1 gm FOUR TIMES A DAY ORAL 05/23/18 09:00 06/20/18 08:59 05/23/18 12:17 Zolpidem Tartrate (Ambien) 5 mg HSPRN PRN ORAL Insomnia 05/23/18 07:30 05/28/18 02:14 Chano Ling MD May 23, 2018 13:03
--- NOTE | 2018-05-23 15:48 | Cardiology Report ---
APPROVED REPORT EXAM: Two-dimensional and M-mode echocardiogram with Doppler and color Doppler. INDICATION LV FUNCTION M-Mode DIMENSIONS IVSd1.5 (0.7-1.1cm)Left Atrium (MM)2.4 (1.6-4.0cm) LVDd5.5 (3.5-5.6cm)Aortic Root3.4 (2.0-3.7cm) PWd1.0 (0.7-1.1cm)Aortic Cusp Exc.1.7 (1.5-2.0cm) IVSs1.4 cm LVDs3.7 (2.5-4.0cm) PWs1.8 cm Normal left ventricular chamber size, systolic function and wall motion . Left ventricular ejection fraction estimated to be 55-60%. No evidence of left ventricular hypertrophy. No evidence of pericardial effusion. All other cardiac chamber sizes are within normal limits. Mild aortic valve sclerosis with adequate cusp excursion. Mildly thickened mitral valve leaflets with normal excursion. Mitral annulus and aortic root calcification. Pulmonic valve not well visualized. IVC at normal size with physiologic collapse. A color flow and spectral Doppler study was performed and revealed: Mild aortic regurgitation. Mitral diastolic velocities suggest reduced left ventricular relaxation c/w mild LV diastolic dysfunction (Grade I ) Trace mitral regurgitation. Mild tricuspid regurgitation. Tricuspid systolic velocities suggests peak right ventricular systolic pressure of 33mmHg.
[2018-05-23 16:00] VITALS: BP 120/69
--- NOTE | 2018-05-23 16:47 | Internal Med Progress Note ---
Subjective Date of Service: May 23, 2018 Physician Name Angus Brooks Attending Physician Silvino Calvillo MD Current Medications Medications (Trade) Dose Ordered Sig/Radha Route PRN Reason Start Time Stop Time Status Last Admin Dose Admin Acetaminophen (Tylenol) 650 mg Q4H PRN ORAL Mild Pain (Pain Scale 1-3) 05/23/18 02:15 06/20/18 02:14 Acetaminophen (Tylenol) 650 mg Q4H PRN ORAL fever 05/23/18 02:15 06/20/18 02:14 Dextrose (Dextrose 50%) 25 ml Q30M PRN IV Hypoglycemia 05/22/18 22:45 06/20/18 02:14 Dextrose (Dextrose 50%) 50 ml Q30M PRN IV Hypoglycemia 05/22/18 22:45 06/20/18 02:14 Docusate Sodium (Colace) 200 mg DAILY PRN ORAL Constipation 05/23/18 09:00 06/20/18 02:14 Heparin Sodium (Porcine) (Heparin 5000 units/ml) 5,000 units BID@0900,2100 SUBQ 05/23/18 09:00 06/20/18 08:59 05/23/18 08:17 Lorazepam (Ativan) 2 mg Q6H PRN ORAL For Anxiety 05/22/18 23:48 05/28/18 23:14 Magnesium Hydroxide (Mom) 30 ml HSPRN PRN ORAL Constipation 05/23/18 02:15 06/20/18 02:14 Mirtazapine (Remeron) 7.5 mg BEDTIME PRN ORAL insomnia 05/23/18 21:00 06/20/18 23:14 Morphine Sulfate (Morphine Sulfate) 2 mg Q4H PRN IVP Moderate Pain (Pain Scale 4-6) 05/23/18 00:00 05/28/18 15:59 Morphine Sulfate (Morphine Sulfate) 4 mg Q4H PRN IVP Severe Pain (Pain Scale 7-10) 05/23/18 00:00 05/28/18 15:59 Ondansetron HCl (Zofran) 4 mg Q4H PRN IVP Nausea & Vomiting 05/23/18 02:15 06/20/18 02:14 Pantoprazole (Protonix) 40 mg EVERY 12 HOURS IVP 05/23/18 21:00 06/22/18 20:59 Patient Own Medication (Patient's Own Med) 1 ea BID ORAL 05/23/18 09:00 06/20/18 17:59 05/23/18 08:16 Sodium Chloride 1,000 ml @ 50 mls/hr Q20H IV 05/22/18 22:45 06/20/18 03:59 Sucralfate (Carafate) 1 gm FOUR TIMES A DAY ORAL 05/23/18 09:00 06/20/18 08:59 05/23/18 12:17 Zolpidem Tartrate (Ambien) 5 mg HSPRN PRN ORAL Insomnia 05/23/18 07:30 05/28/18 02:14 Allergies: Coded Allergies: Broccoli (Verified Allergy, Unknown, 04/05/16) IBUPROFEN (Verified Allergy, Unknown, 12/19/08) LACTOSE (Verified Allergy, Unknown, 12/10/15) Lactose intolerant MILK (Verified Allergy, Unknown, 08/15/11) ONION (Verified Allergy, Unknown, 04/05/16) ORANGE JUICE (Verified Allergy, Unknown, 04/05/16) TOMATO (Verified Allergy, Unknown, 04/05/16) ROS Limited/Unobtainable: No Constitutional: Reports: no symptoms HEENT: Reports: no symptoms Cardiovascular: Reports: chest pain Respiratory: Reports: no symptoms Gastrointestinal/Abdominal: Reports: no symptoms Genitourinary: Reports: no symptoms Neurologic/Psychiatric: Reports: no symptoms Subjective 73 YO F admitted with epigastric pain. Await endoscopy Friday05/25/18. Cover for Int Rex-Dr Calvillo Objective Last Vital Signs Date Time Temp Pulse Resp B/P (MAP) Pulse Ox O2 Delivery O2 Flow Rate FiO2 05/23/18 11:58 97.9 78 19 129/67 (87) 95 05/23/18 10:03 Room Air General Appearance: WD/WN, no apparent distress, alert EENT: PERRL/EOMI, normal ENT inspection, TMs normal Neck: non-tender, normal alignment, supple, normal inspection Cardiovascular: normal peripheral pulses, normal rate, regular rhythm, no gallop/murmur, no JVD Respiratory/Chest: chest wall non-tender, lungs clear, normal breath sounds, no respiratory distress, no accessory muscle use Abdomen: normal bowel sounds, non tender, soft, no organomegaly, no mass Extremities: normal range of motion, non-tender 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: 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, no motor/sensory deficits Skin: normal pigmentation, warm/dry Laboratory Tests Test 05/23/18 05:35 White Blood Count 3.2 K/UL (4.8-10.8) L Red Blood Count 4.31 M/UL (4.20-5.40) Hemoglobin 12.5 G/DL (12.0-16.0) Hematocrit 37.6 % (37.0-47.0) Mean Corpuscular Volume 87 FL (80-99) Mean Corpuscular Hemoglobin 29.1 PG (27.0-31.0) Mean Corpuscular Hemoglobin Concent 33.3 G/DL (32.0-36.0) Red Cell Distribution Width 13.1 % (11.6-14.8) Platelet Count 183 K/UL (150-450) Mean Platelet Volume 8.2 FL (6.5-10.1) Neutrophils (%) (Auto) % (45.0-75.0) Lymphocytes (%) (Auto) % (20.0-45.0) Monocytes (%) (Auto) % (1.0-10.0) Eosinophils (%) (Auto) % (0.0-3.0) Basophils (%) (Auto) % (0.0-2.0) Differential Total Cells Counted 100 Neutrophils % (Manual) 48 % (45-75) Lymphocytes % (Manual) 34 % (20-45) Monocytes % (Manual) 14 % (1-10) H Eosinophils % (Manual) 3 % (0-3) Basophils % (Manual) 1 % (0-2) Band Neutrophils 0 % (0-8) Platelet Estimate Adequate Platelet Morphology Normal Red Blood Cell Morphology Normal Sodium Level 142 MMOL/L (136-145) Potassium Level 3.7 MMOL/L (3.5-5.1) Chloride Level 106 MMOL/L (98-107) Carbon Dioxide Level 26 MMOL/L (21-32) Anion Gap 10 mmol/L (5-15) Blood Urea Nitrogen 11 mg/dL (7-18) Creatinine 0.8 MG/DL (0.55-1.30) Estimat Glomerular Filtration Rate mL/min (>60) Glucose Level 81 MG/DL (74-106) Calcium Level 9.6 MG/DL (8.5-10.1) Iron Level 37 ug/dL (50-175) L Total Iron Binding Capacity 180 ug/dL (250-450) L Percent Iron Saturation 21 % (15-50) Unsaturated Iron Binding 143 ug/dL (112-346) Intake and Output 05/22/18 05/23/18 19:00 07:00 Intake Total 910 ml Balance 910 ml Intake Oral 360 ml IV Total 550 ml # Voids 4 1 # Bowel Movements 2 1 Assessment/Plan Problem List: (1) HTN (hypertension) (2) Epigastric pain Assessment & Plan: Endoscopy scheduled for 05/25/18-see GI note. 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
[2018-05-23] MEDS: NS w/KCl 20mEq 1,000 ML IV SCH (17:18)
--- NOTE | 2018-05-23 18:14 | NUR ---
NURSE NOTES: patient refused to be reconnected to her IVF. Notified Dr Calvillo and obtained d/c IVF. patient is consuming adequate amount of food and fld intake. will cont to monitor.
--- NOTE | 2018-05-23 19:12 | NUR ---
HAND-OFF: Report given to brooke.
--- NOTE | 2018-05-23 19:50 | NUR ---
NURSE NOTES: Patient in bed, awake, alert. IV in place. No s/s distress or pain noted. Bed in lowest position, call light within reach. Will continue to monitor.
[2018-05-23 20:00] VITALS: BP 112/64
[2018-05-23] MEDS: Pantoprazole Inj IVP SCH (20:45)
[2018-05-24 00:38] VITALS: BP 114/58
[2018-05-24 04:47] VITALS: BP 109/63
--- NOTE | 2018-05-24 06:00 | NUR ---
NURSE NOTES: Patient in no distress, asleep.
--- NOTE | 2018-05-24 06:12 | General Progress Note ---
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 ICD Codes: M88.862 - Osteitis deformans of left lower leg SNOMED: 7134291, 476247972 (4) Chronic epigastric pain ICD Codes: R10.13 - Epigastric pain; G89.29 - Other chronic pain SNOMED: 17334531, 49920000 (5) Hiatal hernia ICD Codes: K44.9 - Hiatal hernia SNOMED: 24616917 (6) GERD (gastroesophageal reflux disease) ICD Codes: K21.9 - Gastro-esophageal reflux disease without esophagitis SNOMED: 922985707 Assessment/Plan ppi and carafate patient requesting EGD and colonoscopy as in house for Friday fu labs Subjective ROS Limited/Unobtainable: Yes Allergies: Coded Allergies: Broccoli (Verified Allergy, Unknown, 04/05/16) IBUPROFEN (Verified Allergy, Unknown, 12/19/08) LACTOSE (Verified Allergy, Unknown, 12/10/15) Lactose intolerant MILK (Verified Allergy, Unknown, 08/15/11) ONION (Verified Allergy, Unknown, 04/05/16) ORANGE JUICE (Verified Allergy, Unknown, 04/05/16) TOMATO (Verified Allergy, Unknown, 04/05/16) Subjective abd pain Objective Last 24 Hour Vital Signs Date Time Temp Pulse Resp B/P (MAP) Pulse Ox O2 Delivery O2 Flow Rate FiO2 05/24/18 04:47 97.2 70 18 109/63 (78) 98 05/24/18 00:38 97.9 69 18 114/58 (76) 97 05/23/18 21:59 Room Air 05/23/18 20:00 97.8 76 18 112/64 (80) 95 05/23/18 16:00 98.1 83 19 120/69 (86) 95 05/23/18 11:58 97.9 78 19 129/67 (87) 95 05/23/18 10:03 Room Air 05/23/18 08:00 96.8 91 19 124/70 (88) 95 Intake and Output 05/23/18 05/24/18 19:00 07:00 Intake Total 600 ml Balance 600 ml Intake Oral 600 ml # Voids 7 # Bowel Movements 1 1 Height (Feet): 5 Height (Inches): 2.00 Weight (Pounds): 153 General Appearance: alert EENT: normal ENT inspection Neck: supple Cardiovascular: normal rate Respiratory/Chest: lungs clear Abdomen: normal bowel sounds, non tender, soft Extremities: non-tender Patrick Zheng MD May 24, 2018 06:12
--- NOTE | 2018-05-24 07:07 | NUR ---
HAND-OFF: Report given to GWENDOLYN MARTIN LVN.
[2018-05-24 07:24] LABS: HEMATOCRIT 39.7 % (37.0-47.0); HEMOGLOBIN 13.2 G/DL (12.0-16.0); MEAN CORPUSCULAR VOLUME 87 FL (80-99); PLATELET COUNT 203 K/UL (150-450); RED BLOOD COUNT 4.59 M/UL (4.20-5.40); RED CELL DISTRIBUTION WIDTH 13.4 % (11.6-14.8); WHITE BLOOD COUNT 3.4 K/UL (4.8-10.8)
--- NOTE | 2018-05-24 07:30 | NUR ---
NURSE NOTES: received patient A/A/Ox4, ambulatory with a steady gait. No acute resp distress noted. Had a BM x1 today. keep bed in the lowest position. siderails are up x2. will cont to monitor.
[2018-05-24 07:33] LABS: ANION GAP 10 mmol/L (5-15); BLOOD UREA NITROGEN 14 mg/dL (7-18); CALCIUM 10.2 MG/DL (8.5-10.1); CARBON DIOXIDE 26 MMOL/L (21-32); CHLORIDE 104 MMOL/L (98-107); CREATININE 0.8 MG/DL (0.55-1.30); POTASSIUM 4.1 MMOL/L (3.5-5.1); SODIUM 140 MMOL/L (136-145)
--- NOTE | 2018-05-24 08:01 | NUR ---
NURSE NOTES: received patient A/A/Ox4, ambulates to the bathroom with a steady gait. consumed 100% breakfast, started with clear liquid diet. Patient had provided us copy of her advance directives and placed in chart. Informed Rakel ALCANTAR. Kept bed in the lowest position. siderails are up x3. call light is within reach. No c/o pain/discomfort noted. will cont to monitor.
[2018-05-24 08:09] VITALS: BP 132/73
[2018-05-24] MEDS: Heparin 5000 units/ml inj SUBQ SCH ×2 (08:16→21:00)
[2018-05-24] MEDS: Sucralfate 1gm tab ORAL SCH ×4 (08:16→22:56)
[2018-05-24] MEDS: Pantoprazole Inj IVP SCH ×2 (09:09→22:56)
--- NOTE | 2018-05-24 11:26 | NUR ---
NURSE NOTES: Patient has questions to GI MD prior signing consent. Informed Dr. Zheng. Addendum: 05/24/18 at [address] LVN [address] Zheng will come tonight and speak with the patient.
[2018-05-24 12:00] VITALS: BP 139/78
--- NOTE | 2018-05-24 13:09 | Internal Med Progress Note ---
Subjective Date of Service: May 24, 2018 Physician Name Angus Brooks Attending Physician Silvino Calvillo MD Current Medications Medications (Trade) Dose Ordered Sig/Radha Route PRN Reason Start Time Stop Time Status Last Admin Dose Admin Acetaminophen (Tylenol) 650 mg Q4H PRN ORAL Mild Pain (Pain Scale 1-3) 05/23/18 02:15 06/20/18 02:14 Acetaminophen (Tylenol) 650 mg Q4H PRN ORAL fever 05/23/18 02:15 06/20/18 02:14 Bisacodyl (Dulcolax) 10 mg ONCE ONCE ORAL 05/24/18 16:00 05/24/18 16:01 Dextrose (Dextrose 50%) 25 ml Q30M PRN IV Hypoglycemia 05/22/18 22:45 06/20/18 02:14 Dextrose (Dextrose 50%) 50 ml Q30M PRN IV Hypoglycemia 05/22/18 22:45 06/20/18 02:14 Docusate Sodium (Colace) 200 mg DAILY PRN ORAL Constipation 05/23/18 09:00 06/20/18 02:14 Heparin Sodium (Porcine) (Heparin 5000 units/ml) 5,000 units BID@0900,2100 SUBQ 05/23/18 09:00 06/20/18 08:59 05/23/18 20:46 Lorazepam (Ativan) 2 mg Q6H PRN ORAL For Anxiety 05/22/18 23:48 05/28/18 23:14 Magnesium Hydroxide (Mom) 30 ml HSPRN PRN ORAL Constipation 05/23/18 02:15 06/20/18 02:14 Mirtazapine (Remeron) 7.5 mg BEDTIME PRN ORAL insomnia 05/23/18 21:00 06/20/18 23:14 Morphine Sulfate (Morphine Sulfate) 2 mg Q4H PRN IVP Moderate Pain (Pain Scale 4-6) 05/23/18 00:00 05/28/18 15:59 Morphine Sulfate (Morphine Sulfate) 4 mg Q4H PRN IVP Severe Pain (Pain Scale 7-10) 05/23/18 00:00 05/28/18 15:59 Ondansetron HCl (Zofran) 4 mg Q4H PRN IVP Nausea & Vomiting 05/23/18 02:15 06/20/18 02:14 Pantoprazole (Protonix) 40 mg EVERY 12 HOURS IVP 05/23/18 21:00 06/22/18 20:59 05/24/18 09:09 Patient Own Medication (Patient's Own Med) 1 ea BID ORAL 05/23/18 09:00 06/20/18 17:59 05/24/18 08:16 Polyethylene Glycol/ Electrolytes (Nulytely) 4,000 ml ONCE ONCE ORAL 05/24/18 16:00 05/24/18 16:01 Sucralfate (Carafate) 1 gm FOUR TIMES A DAY ORAL 05/23/18 09:00 06/20/18 08:59 05/24/18 13:00 Zolpidem Tartrate (Ambien) 5 mg HSPRN PRN ORAL Insomnia 05/23/18 07:30 05/28/18 02:14 Allergies: Coded Allergies: Broccoli (Verified Allergy, Unknown, 04/05/16) IBUPROFEN (Verified Allergy, Unknown, 12/19/08) LACTOSE (Verified Allergy, Unknown, 12/10/15) Lactose intolerant MILK (Verified Allergy, Unknown, 08/15/11) ONION (Verified Allergy, Unknown, 04/05/16) ORANGE JUICE (Verified Allergy, Unknown, 04/05/16) TOMATO (Verified Allergy, Unknown, 04/05/16) ROS Limited/Unobtainable: No Constitutional: Reports: no symptoms HEENT: Reports: no symptoms Cardiovascular: Reports: no symptoms Respiratory: Reports: no symptoms Gastrointestinal/Abdominal: Reports: abdominal pain Genitourinary: Reports: no symptoms Neurologic/Psychiatric: Reports: no symptoms Subjective 73 YO F admitted with epigastric pain. Await endoscopy and colonoscopy on Friday05/25/18. Cover for Int Rex-Dr Calvillo Objective Last Vital Signs Date Time Temp Pulse Resp B/P (MAP) Pulse Ox O2 Delivery O2 Flow Rate FiO2 05/24/18 12:00 97.7 81 20 139/78 (98) 100 05/24/18 08:54 Room Air Laboratory Tests Test 05/24/18 06:50 White Blood Count 3.4 K/UL (4.8-10.8) L Red Blood Count 4.59 M/UL (4.20-5.40) Hemoglobin 13.2 G/DL (12.0-16.0) Hematocrit 39.7 % (37.0-47.0) Mean Corpuscular Volume 87 FL (80-99) Mean Corpuscular Hemoglobin 28.9 PG (27.0-31.0) Mean Corpuscular Hemoglobin Concent 33.3 G/DL (32.0-36.0) Red Cell Distribution Width 13.4 % (11.6-14.8) Platelet Count 203 K/UL (150-450) Mean Platelet Volume 8.3 FL (6.5-10.1) Neutrophils (%) (Auto) % (45.0-75.0) Lymphocytes (%) (Auto) % (20.0-45.0) Monocytes (%) (Auto) % (1.0-10.0) Eosinophils (%) (Auto) % (0.0-3.0) Basophils (%) (Auto) % (0.0-2.0) Differential Total Cells Counted 100 Neutrophils % (Manual) 48 % (45-75) Lymphocytes % (Manual) 43 % (20-45) Monocytes % (Manual) 7 % (1-10) Eosinophils % (Manual) 2 % (0-3) Basophils % (Manual) 0 % (0-2) Band Neutrophils 0 % (0-8) Platelet Estimate Adequate Platelet Morphology Normal Red Blood Cell Morphology Normal Sodium Level 140 MMOL/L (136-145) Potassium Level 4.1 MMOL/L (3.5-5.1) Chloride Level 104 MMOL/L (98-107) Carbon Dioxide Level 26 MMOL/L (21-32) Anion Gap 10 mmol/L (5-15) Blood Urea Nitrogen 14 mg/dL (7-18) Creatinine 0.8 MG/DL (0.55-1.30) Estimat Glomerular Filtration Rate mL/min (>60) Glucose Level 92 MG/DL (74-106) Calcium Level 10.2 MG/DL (8.5-10.1) H Intake and Output 05/23/18 05/24/18 19:00 07:00 Intake Total 600 ml 120 ml Balance 600 ml 120 ml Intake Oral 600 ml 120 ml # Voids 7 2 # Bowel Movements 1 1 Objective General Appearance: WD/WN, no apparent distress, alert EENT: PERRL/EOMI, normal ENT inspection, TMs normal Neck: non-tender, normal alignment, supple, normal inspection Cardiovascular: normal peripheral pulses, normal rate, regular rhythm, no gallop/murmur, no JVD Respiratory/Chest: chest wall non-tender, lungs clear, normal breath sounds, no respiratory distress, no accessory muscle use Abdomen: normal bowel sounds, non tender, soft, no organomegaly, no mass Extremities: normal range of motion, non-tender 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
--- NOTE | 2018-05-24 15:50 | Pulmonology Progress Note ---
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 Assessment/Plan no new complains testing pengi cardio consult reviewed symptomatic treatment feeling better Subjective ROS Limited/Unobtainable: No Constitutional: Reports: no symptoms HEENT: Repors: no symptoms Allergies: Coded Allergies: Broccoli (Verified Allergy, Unknown, 04/05/16) IBUPROFEN (Verified Allergy, Unknown, 12/19/08) LACTOSE (Verified Allergy, Unknown, 12/10/15) Lactose intolerant MILK (Verified Allergy, Unknown, 08/15/11) ONION (Verified Allergy, Unknown, 04/05/16) ORANGE JUICE (Verified Allergy, Unknown, 04/05/16) TOMATO (Verified Allergy, Unknown, 04/05/16) Objective Last 24 Hour Vital Signs Date Time Temp Pulse Resp B/P (MAP) Pulse Ox O2 Delivery O2 Flow Rate FiO2 05/24/18 12:00 97.7 81 20 139/78 (98) 100 05/24/18 08:54 Room Air 05/24/18 08:09 97.2 83 20 132/73 (92) 100 05/24/18 04:47 97.2 70 18 109/63 (78) 98 05/24/18 00:38 97.9 69 18 114/58 (76) 97 05/23/18 21:59 Room Air 05/23/18 20:00 97.8 76 18 112/64 (80) 95 05/23/18 16:00 98.1 83 19 120/69 (86) 95 Intake and Output 05/23/18 05/24/18 19:00 07:00 Intake Total 600 ml 120 ml Balance 600 ml 120 ml Intake Oral 600 ml 120 ml # Voids 7 2 # Bowel Movements 1 1 Objective General Appearance: WD/WN HEENT: normocephalic, atraumatic Respiratory/Chest: chest wall non-tender, lungs clear Cardiovascular: normal peripheral pulses Abdomen: normal bowel sounds Genitourinary: normal external genitalia Skin: no rash 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 Laboratory Tests 05/24/18 06:50: White Blood Count 3.4L, Red Blood Count 4.59, Hemoglobin 13.2, Hematocrit 39.7, Mean Corpuscular Volume 87, Mean Corpuscular Hemoglobin 28.9, Mean Corpuscular Hemoglobin Concent 33.3, Red Cell Distribution Width 13.4, Platelet Count 203, Mean Platelet Volume 8.3, Neutrophils (%) (Auto) , Lymphocytes (%) (Auto) , Monocytes (%) (Auto) , Eosinophils (%) (Auto) , Basophils (%) (Auto) , Differential Total Cells Counted 100, Neutrophils % (Manual) 48, Lymphocytes % ( Manual) 43, Monocytes % (Manual) 7, Eosinophils % (Manual) 2, Basophils % ( Manual) 0, Band Neutrophils 0, Platelet Estimate Adequate, Platelet Morphology Normal, Red Blood Cell Morphology Normal, Sodium Level 140, Potassium Level 4.1 , Chloride Level 104, Carbon Dioxide Level 26, Anion Gap 10, Blood Urea Nitrogen 14, Creatinine 0.8, Estimat Glomerular Filtration Rate , Glucose Level 92, Calcium Level 10.2H Current Medications Medications (Trade) Dose Ordered Sig/Radha Route PRN Reason Start Time Stop Time Status Last Admin Dose Admin Acetaminophen (Tylenol) 650 mg Q4H PRN ORAL Mild Pain (Pain Scale 1-3) 05/23/18 02:15 06/20/18 02:14 Acetaminophen (Tylenol) 650 mg Q4H PRN ORAL fever 05/23/18 02:15 06/20/18 02:14 Bisacodyl (Dulcolax) 10 mg ONCE ONCE ORAL 05/24/18 16:00 05/24/18 16:01 Dextrose (Dextrose 50%) 25 ml Q30M PRN IV Hypoglycemia 05/22/18 22:45 06/20/18 02:14 Dextrose (Dextrose 50%) 50 ml Q30M PRN IV Hypoglycemia 05/22/18 22:45 06/20/18 02:14 Docusate Sodium (Colace) 200 mg DAILY PRN ORAL Constipation 05/23/18 09:00 06/20/18 02:14 Heparin Sodium (Porcine) (Heparin 5000 units/ml) 5,000 units BID@0900,2100 SUBQ 05/23/18 09:00 06/20/18 08:59 05/23/18 20:46 Lorazepam (Ativan) 2 mg Q6H PRN ORAL For Anxiety 05/22/18 23:48 05/28/18 23:14 Magnesium Hydroxide (Mom) 30 ml HSPRN PRN ORAL Constipation 05/23/18 02:15 06/20/18 02:14 Mirtazapine (Remeron) 7.5 mg BEDTIME PRN ORAL insomnia 05/23/18 21:00 06/20/18 23:14 Morphine Sulfate (Morphine Sulfate) 2 mg Q4H PRN IVP Moderate Pain (Pain Scale 4-6) 05/23/18 00:00 05/28/18 15:59 Morphine Sulfate (Morphine Sulfate) 4 mg Q4H PRN IVP Severe Pain (Pain Scale 7-10) 05/23/18 00:00 05/28/18 15:59 Ondansetron HCl (Zofran) 4 mg Q4H PRN IVP Nausea & Vomiting 05/23/18 02:15 06/20/18 02:14 Pantoprazole (Protonix) 40 mg EVERY 12 HOURS IVP 05/23/18 21:00 06/22/18 20:59 05/24/18 09:09 Patient Own Medication (Patient's Own Med) 1 ea BID ORAL 05/23/18 09:00 06/20/18 17:59 05/24/18 08:16 Polyethylene Glycol/ Electrolytes (Nulytely) 4,000 ml ONCE ONCE ORAL 05/24/18 16:00 05/24/18 16:01 Sucralfate (Carafate) 1 gm FOUR TIMES A DAY ORAL 05/23/18 09:00 06/20/18 08:59 05/24/18 13:00 Zolpidem Tartrate (Ambien) 5 mg HSPRN PRN ORAL Insomnia 05/23/18 07:30 05/28/18 02:14 Chano Ling MD May 24, 2018 15:50
[2018-05-24 15:54] VITALS: BP 117/58
[2018-05-24] MEDS ORDERED: Nulytely 4L ORAL ONE (16:00)
[2018-05-24] MEDS ORDERED: Bisacodyl EC 5mg tab ORAL ONE (16:00)
[2018-05-24] MEDS ORDERED: Bisacodyl EC 5mg tab ORAL SCH (18:00)
[2018-05-24] MEDS ORDERED: Nulytely 4L ORAL SCH (18:00)
--- NOTE | 2018-05-24 18:45 | NUR ---
NURSE NOTES: Dr Zheng present and spoke with the patient. placed a sign on the front of the chart "NO BLOOD TRANSFUSION"
--- NOTE | 2018-05-24 19:19 | NUR ---
HAND-OFF: Report given to Reid.
--- NOTE | 2018-05-24 19:42 | NUR ---
NURSE NOTES: Received report from ARIEL Fuller. Patient is sitting in bed resting with no c/o of acute distress. Respiration even and non labored on room. IV patent and intact. Bed in lowest position. Call light within reach. Will continue plan of care.
[2018-05-24 20:00] VITALS: BP 128/72
--- NOTE | 2018-05-24 20:05 | Cardiology Progress Note ---
Assessment/Plan Assessment/Plan chest pain resolved, most likily musculosceletal Subjective Subjective the patient feels much better, her precordial pain is gone Objective Last 24 Hour Vital Signs Date Time Temp Pulse Resp B/P (MAP) Pulse Ox O2 Delivery O2 Flow Rate FiO2 05/24/18 15:54 98.2 70 16 117/58 (77) 96 05/24/18 12:00 97.7 81 20 139/78 (98) 100 05/24/18 08:54 Room Air 05/24/18 08:09 97.2 83 20 132/73 (92) 100 05/24/18 04:47 97.2 70 18 109/63 (78) 98 05/24/18 00:38 97.9 69 18 114/58 (76) 97 05/23/18 21:59 Room Air General Appearance: no apparent distress EENT: PERRL/EOMI Neck: supple Rhythm: NSR Cardiovascular: normal rate Respiratory/Chest: chest wall non-tender Abdomen: distended Extremities: trace edema Intake and Output 05/23/18 05/24/18 19:00 07:00 Intake Total 600 ml 120 ml Balance 600 ml 120 ml Intake Oral 600 ml 120 ml # Voids 7 2 # Bowel Movements 1 1 Laboratory Tests Test 05/24/18 06:50 White Blood Count 3.4 K/UL (4.8-10.8) L Red Blood Count 4.59 M/UL (4.20-5.40) Hemoglobin 13.2 G/DL (12.0-16.0) Hematocrit 39.7 % (37.0-47.0) Mean Corpuscular Volume 87 FL (80-99) Mean Corpuscular Hemoglobin 28.9 PG (27.0-31.0) Mean Corpuscular Hemoglobin Concent 33.3 G/DL (32.0-36.0) Red Cell Distribution Width 13.4 % (11.6-14.8) Platelet Count 203 K/UL (150-450) Mean Platelet Volume 8.3 FL (6.5-10.1) Neutrophils (%) (Auto) % (45.0-75.0) Lymphocytes (%) (Auto) % (20.0-45.0) Monocytes (%) (Auto) % (1.0-10.0) Eosinophils (%) (Auto) % (0.0-3.0) Basophils (%) (Auto) % (0.0-2.0) Differential Total Cells Counted 100 Neutrophils % (Manual) 48 % (45-75) Lymphocytes % (Manual) 43 % (20-45) Monocytes % (Manual) 7 % (1-10) Eosinophils % (Manual) 2 % (0-3) Basophils % (Manual) 0 % (0-2) Band Neutrophils 0 % (0-8) Platelet Estimate Adequate Platelet Morphology Normal Red Blood Cell Morphology Normal Sodium Level 140 MMOL/L (136-145) Potassium Level 4.1 MMOL/L (3.5-5.1) Chloride Level 104 MMOL/L (98-107) Carbon Dioxide Level 26 MMOL/L (21-32) Anion Gap 10 mmol/L (5-15) Blood Urea Nitrogen 14 mg/dL (7-18) Creatinine 0.8 MG/DL (0.55-1.30) Estimat Glomerular Filtration Rate mL/min (>60) Glucose Level 92 MG/DL (74-106) Calcium Level 10.2 MG/DL (8.5-10.1) Hannah Hinds MD May 24, 2018 20:05
[2018-05-24] MEDS: Morphine Sulfate 4mg/ml Inj (IV/IM USE ONLY) IVP PRN ×3 (21:52→22:57)
--- NOTE | 2018-05-24 22:46 | NUR ---
NURSE NOTES: Morphine 2mg 0.5ml wasted. IV access is infiltrated. Informed charge nurse ARIEL Brown witnessed.
[2018-05-25] VITALS (9 sets, daily range): BP systolic 111–167; BP diastolic 66–100
--- NOTE | 2018-05-25 02:17 | NUR ---
NURSE NOTES: Called and left a message for Dr. Zheng regarding patient vomiting x3 clear liquids, also patient only consumed 1/2 of the container of Nulytely for bowel prep. Will wait for return call.
[2018-05-25] MEDS: Morphine Sulfate 4mg/ml Inj (IV/IM USE ONLY) IVP PRN (04:06)
--- NOTE | 2018-05-25 06:32 | NUR ---
NURSE NOTES: Called and left a message for Dr. Zheng regarding patient vomiting x5 clear liquids along with abdominal pain. Patient unable to tolerate Nulytely for bowel prep and only consumed 1/2 of the container. Will wait for return call.
--- NOTE | 2018-05-25 08:05 | NUR ---
NURSE NOTES: Report received from ARIEL Mathews. Pt in bed, awake, complaining of abdominal pain and nausea, feeling "sick to my stomach" Pt is scheduled for EGD and colonoscopy this morning, but could not tolerate Golytely. Only have of Golytely has been consumed. Reported from Reid and pt that she vomited after consuming first half of bottle and according to pt had 4 bowel movements, still brown, liquid but with "chuncks of feces" Called GI lab to notified, said to keep pt NPO and await for Dr. Zheng to call back. ARIEL Mathews left two message for Dr. Zheng. bed in lowest position, call light within reach.
[2018-05-25] MEDS: Pantoprazole Inj IVP SCH (09:00)
[2018-05-25] MEDS: Heparin 5000 units/ml inj SUBQ SCH (09:00)
[2018-05-25] MEDS: Sucralfate 1gm tab ORAL SCH ×2 (09:00→13:54)
[2018-05-25 09:28] LABS: BASOPHILS % (AUTO) 0.4 % (0.0-2.0); EOSINOPHILS % (AUTO) 0.8 % (0.0-3.0); HEMATOCRIT 42.2 % (37.0-47.0); HEMOGLOBIN 13.6 G/DL (12.0-16.0); LYMPHOCYTES % (AUTO) 8.7 % (20.0-45.0); MEAN CORPUSCULAR VOLUME 87 FL (80-99); MONOCYTES % (AUTO) 7.5 % (1.0-10.0); NEUTROPHILS % (AUTO) 82.6 % (45.0-75.0); PLATELET COUNT 230 K/UL (150-450); RED BLOOD COUNT 4.84 M/UL (4.20-5.40); RED CELL DISTRIBUTION WIDTH 13.8 % (11.6-14.8); WHITE BLOOD COUNT 7.4 K/UL (4.8-10.8)
[2018-05-25 09:32] LABS: ANION GAP 11 mmol/L (5-15); BLOOD UREA NITROGEN 11 mg/dL (7-18); CALCIUM 9.4 MG/DL (8.5-10.1); CARBON DIOXIDE 26 MMOL/L (21-32); CHLORIDE 104 MMOL/L (98-107); CREATININE 0.8 MG/DL (0.55-1.30); POTASSIUM 3.9 MMOL/L (3.5-5.1); SODIUM 141 MMOL/L (136-145)
--- NOTE | 2018-05-25 09:32 | NUR ---
NURSE NOTES: Confirmed with GI lab tap water enema 500 ml. Full 500 ml tap water enema into pt at 914. Pt able to hold enema until 921, assisted pt to restroom. Cloudy, brown, liquid with some fecal particles came out, reported to GI lab, also reported that pt is asking to speak with Dr. Zheng regarding colonoscopy prior to start of procedure. Addendum: 05/25/18 at 0937 by SHANIQUE MCKINNEY RN Also notified Dr. Zheng regarding results of enema and pt's request to speak to him prior to procedure.
[2018-05-25] MEDS ORDERED: NS 500ML IVPB ONE (10:38)
--- NOTE | 2018-05-25 10:45 | NUR ---
CASE MANAGEMENT:REVIEW 05/25/18 SI: GASTRITIS. EPIGASTRIC PAIN NAUSEA AND VOMITING 98.1 83 12 132/66 99% ON RA IS: IV PROTONIX Q12 HEPARIN SQ BID CARAFATE PO QID : MED/SURG STATUS 4 EAST DCP: FROM HOME PLAN: EGD/COLONOSCOPY FOR TODAY
--- NOTE | 2018-05-25 11:03 | NUR ---
NURSE NOTES: Notified Dr. Calvillo, WBC 7.4, not out of normal range but elevated from 3.4 yesterday
--- NOTE | 2018-05-25 12:21 | Pre-Procedure Note/Attestation ---
Pre-Procedure Note/Attestation Complete Prior to Procedure Planned Procedure: not applicable Procedure Narrative: esophagogastroduodenoscopy and colonoscopy Indications for Procedure Pre-Operative Diagnosis: h/o colon polyps, GERD Attestation I attest that I discussed the nature of the procedure; its benefits; risks and complications; and alternatives (and the risks and benefits of such alternatives ), prior to the procedure, with the patient (or the patient's legal lead customer service representative). I attest that, if there was a reasonable possibility of needing a blood transfusion, the patient (or the patient's legal lead customer service representative) was given the [facility] standardized written summary, pursuant to the Karri Spenser Blood Safety Act ([place] Health and Safety Code # 1645, as amended). I attest that I re-evaluated the patient just prior to the surgery and that there has been no change in the patient's H&P, except as documented below: Patrick Zheng MD May 25, 2018 12:20
[2018-05-25] MEDS ORDERED: Lidocaine 1% MPF 10mg/ml 5ml ONE (12:30)
[2018-05-25] MEDS ORDERED: Propofol 200mg/20ml IV ONE (12:30)
--- NOTE | 2018-05-25 12:45 | General Progress Note ---
Assessment/Plan Problem List: (1) MDD (major depressive disorder) ICD Codes: F32.9 - Major depressive disorder, single episode, unspecified SNOMED: 382436525 (2) Anxiety disorder ICD Codes: F41.9 - Anxiety disorder, unspecified SNOMED: [id number] Qualifiers: Qualified Codes: F41.9 - Anxiety disorder, unspecified Assessment/Plan Remeron prn Ativan prn provided ro/st Subjective Neurologic/Psychiatric: Reports: anxiety, depressed Allergies: Coded Allergies: Broccoli (Verified Allergy, Unknown, 04/05/16) IBUPROFEN (Verified Allergy, Unknown, 12/19/08) LACTOSE (Verified Allergy, Unknown, 12/10/15) Lactose intolerant MILK (Verified Allergy, Unknown, 08/15/11) ONION (Verified Allergy, Unknown, 04/05/16) ORANGE JUICE (Verified Allergy, Unknown, 04/05/16) TOMATO (Verified Allergy, Unknown, 04/05/16) Subjective the pt is doing well has episodes of anxiety Objective Last 24 Hour Vital Signs Date Time Temp Pulse Resp B/P (MAP) Pulse Ox O2 Delivery O2 Flow Rate FiO2 05/25/18 12:00 98.4 81 18 128/69 (88) 97 05/25/18 09:00 Room Air 05/25/18 08:00 98.1 83 12 132/66 (88) 99 05/25/18 04:00 97.7 106 18 167/86 (113) 100 05/25/18 00:00 97.7 94 18 111/69 (83) 97 05/24/18 21:00 Room Air 05/24/18 20:00 96.7 76 16 128/72 (90) 98 05/24/18 15:54 98.2 70 16 117/58 (77) 96 Intake and Output 05/24/18 05/25/18 19:00 07:00 Intake Total 720 ml Balance 720 ml Intake Oral 720 ml # Voids 4 # Bowel Movements 1 5 Laboratory Tests 05/25/18 08:10: White Blood Count 7.4#, Red Blood Count 4.84, Hemoglobin 13.6, Hematocrit 42.2, Mean Corpuscular Volume 87, Mean Corpuscular Hemoglobin 28.1, Mean Corpuscular Hemoglobin Concent 32.3, Red Cell Distribution Width 13.8, Platelet Count 230, Mean Platelet Volume 8.6, Neutrophils (%) (Auto) 82.6H, Lymphocytes (%) (Auto) 8.7L, Monocytes (%) (Auto) 7.5, Eosinophils (%) (Auto) 0.8, Basophils (%) (Auto ) 0.4, Sodium Level 141, Potassium Level 3.9, Chloride Level 104, Carbon Dioxide Level 26, Anion Gap 11, Blood Urea Nitrogen 11, Creatinine 0.8, Estimat Glomerular Filtration Rate , Glucose Level 96, Calcium Level 9.4 Height (Feet): 5 Height (Inches): 2.00 Weight (Pounds): 153 General Appearance: no apparent distress, alert Neurologic: oriented x 3, responsive, depressed affect Darnell Zuniga MD May 25, 2018 12:45
--- NOTE | 2018-05-25 12:53 | Pulmonology Progress Note ---
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 Assessment/Plan f/u GI recommendations no new complains testing negroi cardio consult reviewed symptomatic treatment feeling better Subjective ROS Limited/Unobtainable: No Constitutional: Reports: no symptoms HEENT: Repors: no symptoms Allergies: Coded Allergies: Broccoli (Verified Allergy, Unknown, 04/05/16) IBUPROFEN (Verified Allergy, Unknown, 12/19/08) LACTOSE (Verified Allergy, Unknown, 12/10/15) Lactose intolerant MILK (Verified Allergy, Unknown, 08/15/11) ONION (Verified Allergy, Unknown, 04/05/16) ORANGE JUICE (Verified Allergy, Unknown, 04/05/16) TOMATO (Verified Allergy, Unknown, 04/05/16) Objective Last 24 Hour Vital Signs Date Time Temp Pulse Resp B/P (MAP) Pulse Ox O2 Delivery O2 Flow Rate FiO2 05/25/18 12:00 98.4 81 18 128/69 (88) 97 05/25/18 09:00 Room Air 05/25/18 08:00 98.1 83 12 132/66 (88) 99 05/25/18 04:00 97.7 106 18 167/86 (113) 100 05/25/18 00:00 97.7 94 18 111/69 (83) 97 05/24/18 21:00 Room Air 05/24/18 20:00 96.7 76 16 128/72 (90) 98 05/24/18 15:54 98.2 70 16 117/58 (77) 96 Intake and Output 05/24/18 05/25/18 19:00 07:00 Intake Total 720 ml Balance 720 ml Intake Oral 720 ml # Voids 4 # Bowel Movements 1 5 Objective General Appearance: WD/WN HEENT: normocephalic, atraumatic Respiratory/Chest: chest wall non-tender, lungs clear Cardiovascular: normal peripheral pulses Abdomen: normal bowel sounds Genitourinary: normal external genitalia Skin: no rash 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 Laboratory Tests 05/25/18 08:10: White Blood Count 7.4#, Red Blood Count 4.84, Hemoglobin 13.6, Hematocrit 42.2, Mean Corpuscular Volume 87, Mean Corpuscular Hemoglobin 28.1, Mean Corpuscular Hemoglobin Concent 32.3, Red Cell Distribution Width 13.8, Platelet Count 230, Mean Platelet Volume 8.6, Neutrophils (%) (Auto) 82.6H, Lymphocytes (%) (Auto) 8.7L, Monocytes (%) (Auto) 7.5, Eosinophils (%) (Auto) 0.8, Basophils (%) (Auto ) 0.4, Sodium Level 141, Potassium Level 3.9, Chloride Level 104, Carbon Dioxide Level 26, Anion Gap 11, Blood Urea Nitrogen 11, Creatinine 0.8, Estimat Glomerular Filtration Rate , Glucose Level 96, Calcium Level 9.4 Current Medications Medications (Trade) Dose Ordered Sig/Radha Route PRN Reason Start Time Stop Time Status Last Admin Dose Admin Acetaminophen (Tylenol) 650 mg Q4H PRN ORAL Mild Pain (Pain Scale 1-3) 05/23/18 02:15 06/20/18 02:14 Acetaminophen (Tylenol) 650 mg Q4H PRN ORAL fever 05/23/18 02:15 06/20/18 02:14 Dextrose (Dextrose 50%) 25 ml Q30M PRN IV Hypoglycemia 05/22/18 22:45 06/20/18 02:14 Dextrose (Dextrose 50%) 50 ml Q30M PRN IV Hypoglycemia 05/22/18 22:45 06/20/18 02:14 Docusate Sodium (Colace) 200 mg DAILY PRN ORAL Constipation 05/23/18 09:00 06/20/18 02:14 Heparin Sodium (Porcine) (Heparin 5000 units/ml) 5,000 units BID@0900,2100 SUBQ 05/23/18 09:00 06/20/18 08:59 05/23/18 20:46 Lorazepam (Ativan) 2 mg Q6H PRN ORAL For Anxiety 05/22/18 23:48 05/28/18 23:14 Magnesium Hydroxide (Mom) 30 ml HSPRN PRN ORAL Constipation 05/23/18 02:15 06/20/18 02:14 Mirtazapine (Remeron) 7.5 mg BEDTIME PRN ORAL insomnia 05/23/18 21:00 06/20/18 23:14 Morphine Sulfate (Morphine Sulfate) 2 mg Q4H PRN IVP Moderate Pain (Pain Scale 4-6) 05/23/18 00:00 05/28/18 15:59 05/25/18 04:06 Morphine Sulfate (Morphine Sulfate) 4 mg Q4H PRN IVP Severe Pain (Pain Scale 7-10) 05/23/18 00:00 05/28/18 15:59 Ondansetron HCl (Zofran) 4 mg Q4H PRN IVP Nausea & Vomiting 05/23/18 02:15 06/20/18 02:14 05/25/18 03:46 Pantoprazole (Protonix) 40 mg EVERY 12 HOURS IVP 05/23/18 21:00 06/22/18 20:59 05/24/18 22:56 Patient Own Medication (Patient's Own Med) 1 ea BID ORAL 05/23/18 09:00 06/20/18 17:59 05/24/18 17:32 Sucralfate (Carafate) 1 gm FOUR TIMES A DAY ORAL 05/23/18 09:00 06/20/18 08:59 05/24/18 22:56 Zolpidem Tartrate (Ambien) 5 mg HSPRN PRN ORAL Insomnia 05/23/18 07:30 05/28/18 02:14 Chano Ling MD May 25, 2018 12:53
--- NOTE | 2018-05-25 13:02 | NUR ---
NURSE NOTES: Dr. Calvillo telephone ordered Discharge of pt. Asked if he would like to continue home medications or inpt meds, waiting for response
[2018-05-25] MEDS ORDERED: DiphenhydrAMINE 50mg/ml Inj IVP PRN (13:30)
[2018-05-25] MEDS ORDERED: Midazolam 2mg/2ml Inj IVP PRN (13:30)
[2018-05-25] MEDS ORDERED: Atropine Inj 1mg/10ml Syr IV PRN (13:30)
[2018-05-25] MEDS ORDERED: fentaNYL 100 mcg/2 mL IV PRN (13:30)
--- NOTE | 2018-05-25 13:33 | Anethesia Preoperative Eval ---
Anesthesia Pre-op PMH/ROS General Date of Evaluation: May 25, 2018 Time of Evaluation: 12:35 Anesthesiologist: magy ASA Score: ASA 4 Mallampati Score Class I : Soft palate, uvula, fauces, pillars visible Class II: Soft palate, uvula, fauces visible Class III: Soft palate, base of uvula visible Class IV: Only hard plate visible Mallampati Classification: Class II Surgeon: reese Diagnosis: abdominal pain Surgical Procedure: egd/colonoscopy Anesthesia History: none Social History: smoking - nonsmoker Family History: no anesthesia problems Allergies: Coded Allergies: Broccoli (Verified Allergy, Unknown, 04/05/16) IBUPROFEN (Verified Allergy, Unknown, 12/19/08) LACTOSE (Verified Allergy, Unknown, 12/10/15) Lactose intolerant MILK (Verified Allergy, Unknown, 08/15/11) ONION (Verified Allergy, Unknown, 04/05/16) ORANGE JUICE (Verified Allergy, Unknown, 04/05/16) TOMATO (Verified Allergy, Unknown, 04/05/16) Medications: see eMAR Patient NPO?: Yes Past Medical History Cardiovascular: Reports: HTN, arrhythmia Pulmonary: Reports: COPD Gastrointestinal/Genitourinary: Reports: GERD HEENT: Reports: cataract (L), cataract (R), KIANA (L), KIANA (R) Musculoskeletal/Integumentary: Reports: OA Other: obesity PSxH Narrative: hysterectomy Anesthesia Pre-op Phys. Exam Physician Exam Last Vital Signs Date Time Temp Pulse Resp B/P (MAP) Pulse Ox O2 Delivery O2 Flow Rate FiO2 05/25/18 13:21 96 19 127/79 97 Room Air 05/25/18 13:16 97.6 Constitutional: NAD Neurologic: CN 2-12 intact, other - [place] Cardiovascular: RRR Respiratory: CTA Gastrointestinal: S/NT/ND Airway Exam Mallampati Score: Class II MO: limited Neck: flexible TMD: 2fb ROM: limited Teeth: missing Anesthesia Pre-op A/P Labs Hematology Test 05/25/18 08:10 White Blood Count 7.4 K/UL (4.8-10.8) # Red Blood Count 4.84 M/UL (4.20-5.40) Hemoglobin 13.6 G/DL (12.0-16.0) Hematocrit 42.2 % (37.0-47.0) Mean Corpuscular Volume 87 FL (80-99) Mean Corpuscular Hemoglobin 28.1 PG (27.0-31.0) Mean Corpuscular Hemoglobin Concent 32.3 G/DL (32.0-36.0) Red Cell Distribution Width 13.8 % (11.6-14.8) Platelet Count 230 K/UL (150-450) Mean Platelet Volume 8.6 FL (6.5-10.1) Neutrophils (%) (Auto) 82.6 % (45.0-75.0) H Lymphocytes (%) (Auto) 8.7 % (20.0-45.0) L Monocytes (%) (Auto) 7.5 % (1.0-10.0) Eosinophils (%) (Auto) 0.8 % (0.0-3.0) Basophils (%) (Auto) 0.4 % (0.0-2.0) Chemistry Test 05/25/18 08:10 Sodium Level 141 MMOL/L (136-145) Potassium Level 3.9 MMOL/L (3.5-5.1) Chloride Level 104 MMOL/L (98-107) Carbon Dioxide Level 26 MMOL/L (21-32) Anion Gap 11 mmol/L (5-15) Blood Urea Nitrogen 11 mg/dL (7-18) Creatinine 0.8 MG/DL (0.55-1.30) Estimat Glomerular Filtration Rate mL/min (>60) Glucose Level 96 MG/DL (74-106) Calcium Level 9.4 MG/DL (8.5-10.1) Risk Assessment & Plan Assessment: asa4 Plan: mac Status Change Before Surgery: No Pre-Antibiotics Drug: Stephy Mtz MD May 25, 2018 13:33
--- NOTE | 2018-05-25 13:35 | Immediate Post-Op Evaluation ---
Immediate Post-Op Evalulation Immediate Post-Op Evalulation Procedure: egd/colonoscopy/bx Date of Evaluation: May 25, 2018 Time of Evaluation: 13:28 IV Fluids: 400ml 0.9ns Blood Products: none Estimated Blood Loss: negligible Blood Pressure Systolic: 124 Blood Pressure Diastolic: 80 Pulse Rate: 87 Respiratory Rate: 18 O2 Sat by Pulse Oximetry: 100 Temperature (Fahrenheit): 97.0 Pain Score (1-10): 0 Nausea: No Vomiting: No Complications none Patient Status: awake, reacts, patent Hydration Status: adequate Drug: Stephy Mtz MD May 25, 2018 13:35
--- NOTE | 2018-05-25 13:39 | 48 Hour Post Anesthesia Eval ---
Post Anesthesia Evaluation Procedure: egd/colonoscopy/bx Date of Evaluation: May 25, 2018 Time of Evaluation: 13:30 Blood Pressure Systolic: 148 0: 100 Pulse Rate: 89 Respiratory Rate: 18 Temperature (Fahrenheit): 97.0 O2 Sat by Pulse Oximetry: 100 Airway: patent Nausea: No Vomiting: No Pain Intensity: 0 Hydration Status: adequate Cardiopulmonary Status: stable Mental Status/LOC: patient returned to baseline Post-Anesthesia Complications: none Follow-up care needed: N/A Stephy Mazariegos MD May 25, 2018 13:39
--- NOTE | 2018-05-25 14:05 | NUR ---
PT NOTE: Attempted to see patient for PT treatment. Patient declined to participate with PT at this time, states she had 2 procedures this morning and she feels too weak to participate. Will re-attempt tomorrow, Aniyah GEORGE notified.
--- NOTE | 2018-05-25 14:53 | NUR ---
NURSE NOTES: Reviewed discharge instructions and education material with pt, obtained all signatures on DC paperwork and belongings list. Returned pt's home medications that were in the pharmacy and in pt's cassette on 4E. Pt requested to speak with Dr. Zheng prior to going home, notified Dr. Zheng. Made copy of [employer] voucher and gave original to pt.
--- NOTE | 2018-05-25 15:42 | NUR ---
NURSE NOTES: Pt discharged with all belongings, IV removed ID band removed, pt ambulatory, stable. Assisted to 1st floor and into taxi.
--- NOTE | 2018-05-25 17:00 | Procedure Note ---
DATE OF PROCEDURE: 05/25/2018 SURGEON: Patrick Zheng M.D. ANESTHESIOLOGIST: Dr. Mary. REFERRING PHYSICIAN: Silvino Calvillo M.D. PROCEDURE: Upper endoscopy with biopsy and colonoscopy. ANESTHESIA: Per Dr. Mary. INSTRUMENT: Olympus adult flexible upper endoscope and colonoscope. INDICATION: 1. Screening colonoscopy. 2. History of colonic polyps. 3. Chronic GERD. 4. Abdominal pain. The procedure, risks, benefits, and possible consequences, including hemorrhage, aspiration, perforation and infection, and alternative treatments, were explained to the patient/legal guardian by Dr. Patrick Zheng and the patient/legal guardian understood and accepted these risks. DESCRIPTION OF PROCEDURE: After informed consent was obtained and the patient was adequately sedated, Olympus upper endoscope was advanced from the mouth to the second portion of duodenum and retroflexion was performed in the stomach. The patient had multiple polyps in the stomach looking fundic gland polyps with history of PPI. The patient had also evidence of diffuse gastritis. Random biopsy from antrum was obtained to rule out H. pylori infection. The patient had evidence of a 3 cm hiatal hernia with distal esophageal ring, but the ring was patent and the scope was easily going in and out without any problems. At this time, the upper endoscope was retrieved. The patient was turned over for colonoscopy. First, rectal exam was performed which was positive for internal hemorrhoids. Then, the scope was advanced from the rectum to the cecum documented by appendix orifice, ileocecal valve, and right upper quadrant palpation. Quality of prep was overall okay. There was some fluid throughout the colon. The patient did not finish the prep completely, so prep was not 100% clear. Small polyps cannot be evaluated with this prep. There was no obvious mass, polyp, or any pathology was seen. Retroflexion of rectum showed evidence of internal hemorrhoids. The patient tolerated the procedure very well without any complication. SUMMARY OF FINDINGS: 1. A 3-cm hiatal hernia. 2. Distal esophageal ring. 3. GE junction was found at about 30 cm from the incisors, so short esophagus. 4. Multiple gastric polyps, most probably fundic gland polyps. 5. Gastritis, status post biopsy. 6. Fair colonic prep without any obvious findings. 7. Internal hemorrhoids. RECOMMENDATIONS: Follow up biopsy results and treat accordingly. I want to thank Dr. Silvino Calvillo for this kind referral. Patrick Zheng M.D. DR: Monie JOB#: [id number] CC: Silvino Calvillo M.D.; Fax#: [phone]
--- NOTE | 2018-05-27 09:29 | Discharge Summary ---
Discharge Summary Discharge Summary _ DATE OF ADMISSION: 05/20/2017 DATE OF DISCHARGE: 05/25/2018 DISCHARGED BY: Dr. Calvillo REASON FOR ADMISSION: 73 years old female with past medical history of GERD, hiatal hernia, gastritis , hypertension, osteoarthritis of lumbar spine, Paget's disease of left femur, presented to emergency department with epigastric pain radiating to the chest. Patient also reported nausea without vomiting. Chest pain was reported as substernal and crushing. Patient stopped taking Nexium and was taking sucralfate and ranitidine. Patient felt indigestion and chest pressure. Patient recently admitted for similar problems. Patient felt anxious. Upon evaluation blood pressure was elevated 167/96. Patient was tachycardic with heart rate of 120. Laboratory workup revealed no leukocytosis ,stable hemoglobin and hematocrit. Potassium 3.4. Stable electrolytes and renal parameters. Troponin negative. ECG showed sinus rhythm, no acute ischemic changes. ProBNP 36. Urinalysis revealed no evidence of UTI. Chest x-ray revealed no acute cardiopulmonary pathology. Patient admitted with diagnoses of chest and epigastric pain, rule out acute coronary syndrome. CONSULTANTS: video camera operator Dr. Winters pulmonary Dr. Ling GI specialist Dr. Zheng psychiatrist [facility] COURSE: Patient admitted to telemetry floor. Cardiology, pulmonology and GI specialist closely followed. Serial troponin x3 were negative. EKG revealed no acute ischemic changes. Patient was rule out for acute myocardial infarction. Echocardiogram revealed preserved ejection fraction 55-60%. No evidence of left ventricular hypertrophy. No evidence of wall motion abnormality. Right ventricular systolic pressure of 33. Per video camera operator , patient had several perfusion imaging, most recent one at [facility] in August 2017 which showed no significant reversibility. Calculated ejection fraction was 73 %, unchanged from prior evaluation in 2010. Patient also had CT coronary angiogram on 04/13 ( during admission), which showed mild plaque in the left main and mild plaque in the proximal and mid circumflex as well as moderate plaque in the proximal right coronary artery and mild plaque in the mid and distal right coronary artery. Per cardiology , patient had coronary artery atherosclerosis with no significant luminal narrowing ; coronary artery calcium score was 180 /81 percentile for the patient's age. Manager Contracting did not favor any further workup at this time. Patient denied chest pain. Per video camera operator initial chest pain was most likely gastric im origin. Potassium was replaced. Blood pressure was managed with current regimen and stabilized. Supplemental oxygen and pulmonary toilet were on board as needed. Pulse oximetry was stable on room air. GI specialist closely follow. Patient undergone upper endoscopy with biopsy and colonoscopy due to history of colonic polyps, chronic GERD and epigastric/abdominal pain. Patient was found to have 3 cm hiatal hernia, distal esophageal ring, gastroesophageal junction was found at about 30 cm from the incisors/ short esophagus; multiply gastric polyps, most probably fundic gland polyps; gastritis, status post biopsy; internal hemorrhoids. Patient was on Carafate and GI prophylaxis with proton pump inhibitor. Antiemetics were on board as needed. Pain management was addressed. Biopsy results still pending. DVT prophylaxis provided. Psychiatry seen and evaluated patient and diagnosed patient with major depressive disorder and anxiety disorder. Reality orientation and supportive therapy provided. Remeron and Ativan were on board as needed. Patient clinically stabilized. Epigastric pain resolved, no nausea, no vomiting ,patient was able to tolerate diet. Patient was stable for discharge home. FINAL DIAGNOSES: GERD Chronic epigastric pain Hiatal hernia Gastritis , status post biopsy Multiply gastric polyps, most probably fundic gland polyps Coronary atherosclerosis without evidence of flow-limiting disease/based on CT coronary angiogram 03/2018 Osteoarthritis of lumbar spine Paget disease lumbar spine Major depressive disorder disorder Anxiety disorder Obesity DISCHARGE MEDICATIONS: See Medication Reconciliation list. DISCHARGE INSTRUCTIONS: Patient was discharged home . Follow up with primary care provider in one week. I have been assigned to dictate discharge summary for this account. I was not involved in the patient's management. Sanjuana Ferreira NP May 27, 2018 09:29
== END 2018-05-25 15:30 | disposition home or self-care (01) | DRG 392 ==
LOC: EMR 20:40 → 2E 21:25 → EDBEDREQ 22:58 → 2E 05-21 00:45 → 4E 05-22 21:11
PROC: 0DB78ZX Excision of Stomach, Pylorus, Via Natural or Artificial Opening Endoscopic, Diagnostic (ICD-10-PCS; principal; 2018-05-25 12:48)
PROC: 0DJD8ZZ Inspection of Lower Intestinal Tract, Via Natural or Artificial Opening Endoscopic (ICD-10-PCS; principal; 2018-05-25 12:48)
DX: K21.9 Gastro-esophageal reflux disease without esophagitis (principal); G89.29 Other chronic pain; R10.13 Epigastric pain; K44.9 Diaphragmatic hernia without obstruction or gangrene; K29.70 Gastritis, unspecified, without bleeding; K31.7 Polyp of stomach and duodenum; M88.852 Osteitis deformans of left thigh; I25.10 Atherosclerotic heart disease of native coronary artery without angina pectoris; M47.896 Other spondylosis, lumbar region; F32.9 Major depressive disorder, single episode, unspecified; F41.9 Anxiety disorder, unspecified; E66.9 Obesity, unspecified; Z88.6 Allergy status to analgesic agent; Z91.018 Allergy to other foods; G47.00 Insomnia, unspecified; M81.0 Age-related osteoporosis without current pathological fracture; K64.8 Other hemorrhoids; M88.88 Osteitis deformans of other bones
CPT/HCPCS: 36415; 71045; 80048; 80053; 81003; 82550; 83540; 83550; 83880; 84484; 85007; 85025; 85610; 85730; 93306; 94003; 94150; 96361; 96374; 96375; 99285; J2405

== ENCOUNTER 2018-06-02 10:13 | Outpatient (CLI) | payer MEDICARE, MEDICAID ==
--- NOTE | 2018-06-02 10:58 | GI Progress Note ---
Assessment/Plan Problems: (1) Epigastric pain ICD Codes: R10.13 - Epigastric pain SNOMED: 52986119 (2) Gastritis ICD Codes: K29.70 - Gastritis, unspecified, without bleeding SNOMED: 8569784 (3) GERD (gastroesophageal reflux disease) ICD Codes: K21.9 - Gastro-esophageal reflux disease without esophagitis SNOMED: 868521682 (4) PUD (peptic ulcer disease) ICD Codes: K27.9 - Peptic ulcer, site unspecified, unspecified as acute or chronic, without hemorrhage or perforation SNOMED: 26234419 (5) Anxiety disorder ICD Codes: F41.9 - Anxiety disorder, unspecified SNOMED: 359945004 (6) Nausea & vomiting ICD Codes: R11.2 - Nausea with vomiting, unspecified SNOMED: 76809917 (7) Gastroenteritis ICD Codes: K52.9 - Noninfective gastroenteritis and colitis, unspecified SNOMED: 00843549 Status: stable Status Narrative Seen with Dr. Zheng. Assessment/Plan SUMMARY OF FINDINGS reviewed with patient: 1. A 3-cm hiatal hernia. 2. Distal esophageal ring. 3. GE junction was found at about 30 cm from the incisors, so short esophagus. 4. Multiple gastric polyps, most probably fundic gland polyps. 5. Gastritis, status post biopsy. 6. Fair colonic prep without any obvious findings. 7. Internal hemorrhoids. RECOMMENDATIONS: Follow up biopsy results and treat accordingly. >> Negative for H. pylori. Mild chronic gastritis, focally active Continue Carafate twice daily Off PPI Return to clinic in 3 months The patient was seen and examined at bedside and all new and available data was reviewed in the patients chart. I agree with the above findings, impression and plan. (Patient seen earlier today. Signature stamp does not reflect patient encounter time.). - Patrick Zheng MD Subjective Subjective Patient denies any abdominal pain at this time Taking Zantac twice daily Taking Carafate Objective Temperature 97.9 Blood pressure 125 over 88 Pulse 95 97% room air General Appearance: WD/WN, no apparent distress, alert Cardiovascular: normal rate Respiratory/Chest: normal breath sounds, no respiratory distress Abdominal Exam: normal bowel sounds, non tender, soft Extremities: normal range of motion, non-tender Rodri Oliveros SPECIMEN PREPARATION ASSISTANT Jun 02, 2018 10:58
[2018-06-02 11:35] VITALS: BP 125/88
== END 2018-06-02 10:43 | disposition home or self-care (01) ==
LOC: PAN 10:13
DX: K21.9 Gastro-esophageal reflux disease without esophagitis (principal); K29.70 Gastritis, unspecified, without bleeding; K27.9 Peptic ulcer, site unspecified, unspecified as acute or chronic, without hemorrhage or perforation; F41.9 Anxiety disorder, unspecified; R11.2 Nausea with vomiting, unspecified; K52.9 Noninfective gastroenteritis and colitis, unspecified; K44.9 Diaphragmatic hernia without obstruction or gangrene; K64.8 Other hemorrhoids
CPT/HCPCS: 99212

== ENCOUNTER 2018-08-10 10:24 | Inpatient (IN) | payer MEDICARE, MEDICAID ==
[~2018-08-10] VITALS: Ht 157.5 cm; Wt 71.7 kg
[2018-08-10 10:40] VITALS: BP 145/84
[2018-08-10] MEDS ORDERED: Isovue-300 100ml vial INJ PRN (10:45)
[2018-08-10 11:21] LABS: APPEARANCE,URINE CLEAR; BILIRUBIN, URINE NEGATIVE (NEGATIVE); COLOR,URINE PALE YELLOW; GLUCOSE, URINE (UA) NEGATIVE (NEGATIVE); KETONES,URINE NEGATIVE (NEGATIVE); LEUKOCYTE ESTERASE ,URINE NEGATIVE (NEGATIVE); NITRITE,URINE NEGATIVE (NEGATIVE); PH,URINE 5 (4.5-8.0); PROTEIN,URINE NEGATIVE (NEGATIVE); UROBILINOGEN,URINE NORMAL MG/DL (0.0-1.0)
[2018-08-10 11:27] LABS: ANION GAP 13 mmol/L (5-15); BLOOD UREA NITROGEN 10 mg/dL (7-18); CALCIUM 9.9 MG/DL (8.5-10.1); CARBON DIOXIDE 25 MMOL/L (21-32); CHLORIDE 104 MMOL/L (98-107); CREATININE 0.8 MG/DL (0.55-1.30); POTASSIUM 3.9 MMOL/L (3.5-5.1); SODIUM 142 MMOL/L (136-145)
[2018-08-10 11:29] LABS: BASOPHILS % (AUTO) 1.1 % (0.0-2.0); HEMATOCRIT 42.2 % (37.0-47.0); HEMOGLOBIN 13.7 G/DL (12.0-16.0); LYMPHOCYTES % (AUTO) 21.3 % (20.0-45.0); MEAN CORPUSCULAR VOLUME 86 FL (80-99); MONOCYTES % (AUTO) 4.3 % (1.0-10.0); NEUTROPHILS % (AUTO) 72.4 % (45.0-75.0); PLATELET COUNT 165 K/UL (150-450); RED BLOOD COUNT 4.89 M/UL (4.20-5.40); RED CELL DISTRIBUTION WIDTH 13.4 % (11.6-14.8)
[2018-08-10 11:32] LABS: ALANINE AMINOTRANSFERASE 26 U/L (12-78); ALBUMIN 3.9 G/DL (3.4-5.0); ALBUMIN/GLOBULIN RATIO 0.9 (1.0-2.7); ALKALINE PHOSPHATASE 170 U/L (46-116); ASPARTATE AMINO TRANSFERASE 19 U/L (15-37); BILIRUBIN,TOTAL 0.8 MG/DL (0.2-1.0)
[2018-08-10] MEDS ORDERED: Morphine Sulfate 2mg/ml Inj(IV/IM USE ONLY) IVP PRN ×2 (11:45→15:15)
[2018-08-10] MEDS ORDERED: Morphine Sulfate 4mg/ml Inj (IV USE ONLY) IVP PRN (11:45)
[2018-08-10] MEDS ORDERED: LORazepam Inj 2mg/ml 1ml IV PRN ×2 (11:45→15:15)
[2018-08-10] MEDS ORDERED: Morphine Sulfate 2mg/ml Inj(IV/IM USE ONLY) IVP ONE (12:00)
[2018-08-10 12:24] VITALS: BP 128/81
[2018-08-10 14:00] VITALS: BP 138/86
[2018-08-10 15:00] VITALS: BP 134/80
[2018-08-10] MEDS ORDERED: D5 1/2NS 1,000 ML IV SCH (15:09)
--- NOTE | 2018-08-10 15:10 | Emergency Room Report ---
History of Present Illness General Chief Complaint: Abdominal Pain Source: Patient, Medical Record Present Illness HPI Patient states that for the past 2 days she has had abdominal pain. She states she has a history of gastritis and hiatal hernia. She is seen by Dr. Zheng who has done an upper endoscopy and a colonoscopy. She states she has had nausea, vomiting, upper abdominal pain and constipation for the past 3 days. She states that she has a history of constipation. She denies dysuria or hematuria. She denies fever or chills. She denies chest pain or shortness of breath. She has no other complaints. Allergies: Coded Allergies: Broccoli (Verified Allergy, Unknown, 08/10/18) IBUPROFEN (Verified Allergy, Unknown, 08/10/18) LACTOSE (Verified Allergy, Unknown, 08/10/18) Lactose intolerant MILK (Verified Allergy, Unknown, 08/10/18) ONION (Verified Allergy, Unknown, 08/10/18) ORANGE JUICE (Verified Allergy, Unknown, 08/10/18) TOMATO (Verified Allergy, Unknown, 08/10/18) Patient History Past Medical History: see triage record, old chart reviewed, HTN, GERD, other - Gastritis, Hiatal hernia, short esophagus, nerve deafness, cataracts Past Surgical History: hysterectomy Social History: Denies: smoking, alcohol use, drug use Last Menstrual Period: MENOPAUSE Reviewed Nursing Documentation: PMH: Agreed; PSxH: Agreed Nursing Documentation-PMH Past Medical History: No History, Except For Hx Cardiac Problems: Yes Hx Hypertension: Yes Hx Pacemaker: No Hx Asthma: No Hx COPD: No Hx Diabetes: No Hx Cancer: No Hx Gastrointestinal Problems: Yes - esophageal ring , gastric polyps Hx Dialysis: No Hx Neurological Problems: No Hx Cerebrovascular Accident: No Hx Seizures: No Review of Systems All Other Systems: negative except mentioned in HPI Physical Exam Vital Signs Date Time Temp Pulse Resp B/P (MAP) Pulse Ox O2 Delivery O2 Flow Rate FiO2 08/10/18 10:28 97.5 89 16 159/95 96 Room Air Sp02 EP Interpretation: reviewed, normal General Appearance: no apparent distress, alert, GCS 15, non-toxic Head: normocephalic, atraumatic Eyes: bilateral eye normal inspection, bilateral eye PERRL ENT: hearing grossly normal, normal pharynx, no angioedema, normal voice Neck: full range of motion, supple/symm/no masses Respiratory: chest non-tender, lungs clear, normal breath sounds, no respiratory distress, no retraction, no accessory muscle use, speaking full sentences Cardiovascular #1: regular rate, rhythm, no edema Gastrointestinal: normal bowel sounds, soft, non-distended, no guarding, no rebound, tenderness - TTP diffusely greatest in epigastrium Rectal: deferred Musculoskeletal: back normal, gait/station normal, normal range of motion, non- tender Neurologic: alert, oriented x3, responsive, motor strength/tone normal, sensory intact, speech normal Psychiatric: judgement/insight normal, memory normal, mood/affect normal, no suicidal/homicidal ideation Skin: normal color, no rash, warm/dry, well hydrated Medical Decision Making Diagnostic Impression: Primary Impression: SBO (small bowel obstruction) Additional Impressions: GERD (gastroesophageal reflux disease) Gastritis ER Course The patient has findings on CT scan concerning for small bowel obstruction. There was no definitive transition point identified. Patient refused NG tube in the emergency department at this time. The patient is convinced that this is an episode of her gastritis. She will defer to and Dr. Calvillo's recommendations when she is an inpatient. This time she does not want an NG tube. Dr. Hobson was consulted. The patient is admitted for further evaluation and treatment. Laboratory Tests Test 08/10/18 10:35 White Blood Count 5.0 K/UL (4.8-10.8) Red Blood Count 4.89 M/UL (4.20-5.40) Hemoglobin 13.7 G/DL (12.0-16.0) Hematocrit 42.2 % (37.0-47.0) Mean Corpuscular Volume 86 FL (80-99) Mean Corpuscular Hemoglobin 28.1 PG (27.0-31.0) Mean Corpuscular Hemoglobin Concent 32.5 G/DL (32.0-36.0) Red Cell Distribution Width 13.4 % (11.6-14.8) Platelet Count 165 K/UL (150-450) Mean Platelet Volume 7.5 FL (6.5-10.1) Neutrophils (%) (Auto) 72.4 % (45.0-75.0) Lymphocytes (%) (Auto) 21.3 % (20.0-45.0) Monocytes (%) (Auto) 4.3 % (1.0-10.0) Eosinophils (%) (Auto) 1.0 % (0.0-3.0) Basophils (%) (Auto) 1.1 % (0.0-2.0) Urine Color Pale yellow Urine Appearance Clear Urine pH 5 (4.5-8.0) Urine Specific [place] 1.015 (1.005-1.035) Urine Protein Negative (NEGATIVE) Urine Glucose (UA) Negative (NEGATIVE) Urine Ketones Negative (NEGATIVE) Urine Blood Negative (NEGATIVE) Urine Nitrite Negative (NEGATIVE) Urine Bilirubin Negative (NEGATIVE) Urine Urobilinogen Normal MG/DL (0.0-1.0) Urine Leukocyte Esterase Negative (NEGATIVE) Sodium Level 142 MMOL/L (136-145) Potassium Level 3.9 MMOL/L (3.5-5.1) Chloride Level 104 MMOL/L (98-107) Carbon Dioxide Level 25 MMOL/L (21-32) Anion Gap 13 mmol/L (5-15) Blood Urea Nitrogen 10 mg/dL (7-18) Creatinine 0.8 MG/DL (0.55-1.30) Estimate Glomerular Filtration Rate mL/min (>60) Glucose Level 106 MG/DL (74-106) Calcium Level 9.9 MG/DL (8.5-10.1) Total Bilirubin 0.8 MG/DL (0.2-1.0) Aspartate Amino Transferase (AST) 19 U/L (15-37) Alanine Aminotransferase (ALT) 26 U/L (12-78) Alkaline Phosphatase 170 U/L (46-116) H Total Protein 8.1 G/DL (6.4-8.2) Albumin 3.9 G/DL (3.4-5.0) Globulin 4.2 g/dL Albumin/Globulin Ratio 0.9 (1.0-2.7) L Lipase 125 U/L (73-393) CT/MRI/US Diagnostic Results CT/MRI/US Diagnostic Results : Imaging Test Ordered: CT abd/pelvis Impression Dilated small bowel. Findings concerning for small bowel dissection. See official report in electronic medical record. Last Vital Signs Date Time Temp Pulse Resp B/P (MAP) Pulse Ox O2 Delivery O2 Flow Rate FiO2 08/10/18 14:00 89 18 138/86 100 Nasal Cannula 08/10/18 10:40 97.5 Disposition: ADMITTED INPATIENT Condition: Serious Referrals: Silvino Calvillo MD (PCP) Rosibel Houston DO Aug 10, 2018 15:10
[2018-08-10] MEDS ORDERED: Metoclopramide 10mg/2ml Inj IVP PRN (15:15)
[2018-08-10] MEDS ORDERED: Promethazine HCl 12.5 MG in NS 55 ML IV PRN (15:15)
[2018-08-10] MEDS ORDERED: Nitroglycerin Subl 0.4mg tab SL PRN (15:15)
[2018-08-10] MEDS ORDERED: Promethazine HCl 25 MG in NS 55 ML IV PRN (15:15)
[2018-08-10] MEDS ORDERED: Miralax 17gm pkt ORAL PRN (15:15)
[2018-08-10] MEDS ORDERED: Mylanta II UD 30ml ORAL PRN (15:15)
[2018-08-10 16:00] VITALS: BP 109/56
[2018-08-10] MEDS: Pantoprazole Inj IV SCH (16:18)
[2018-08-10] MEDS: D5 1/2NS w/KCl 20mEq 1,000 ML IV SCH ×2 (16:18→22:40)
--- NOTE | 2018-08-10 16:19 | Consultation ---
History of Present Illness General Date patient seen: Aug 10, 2018 Reason for Hospitalization: Abdominal Pain Present Illness HPI This is a 73 year old female with multiple medical comorbidities who presented to ED with complaints of abdominal pain for 2 days. Pain described as cramping generalized abdominal pain with associated nausea and emesis. Cannot recall last BM or flatus. In ED had CT scan with concerns for SBO but no transition point seen. Surgery called by ED physician to evaluate for SBO. Patient seen, in ED, chart reviewed, patient examined. States she thinks pain is related to her gastritis and GERD. Requests treatment for her GERD and gastritis to improve pain. States she has had similar event in the past and it resolved with a barium study. Requests barium study again so she can feel better. Currently no n/v/f/c. pain present but states improved. labs noted. exam as below. hx of tuboovarian abscess requiring midline infraumbilical exploration many years ago Allergies: Coded Allergies: Broccoli (Verified Allergy, Unknown, 08/10/18) IBUPROFEN (Verified Allergy, Unknown, 08/10/18) LACTOSE (Verified Allergy, Unknown, 08/10/18) Lactose intolerant MILK (Verified Allergy, Unknown, 08/10/18) ONION (Verified Allergy, Unknown, 08/10/18) ORANGE JUICE (Verified Allergy, Unknown, 08/10/18) TOMATO (Verified Allergy, Unknown, 08/10/18) Medication History Scheduled Ranitidine Hcl* (Zantac*), 150 MG ORAL TWICE A DAY Sucralfate* (Carafate*), 1 GM ORAL BID, (Reported) Patient History History Provided By: Patient, Medical Record, PMD Healthcare decision maker Resuscitation status Full Code Advanced Directive on File Past Medical/Surgical History Past Medical/Surgical History: (1) Pancreatitis (2) ACS (acute coronary syndrome) (3) Hiatal hernia (4) Pleuritic chest pain (5) Gastroenteritis (6) SBO (small bowel obstruction) (7) GI (gastrointestinal bleed) (8) Partial small bowel obstruction (9) Chronic epigastric pain (10) MDD (major depressive disorder) (11) PUD (peptic ulcer disease) (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 (13) Anxiety disorder (14) Nausea & vomiting (15) Costochondritis (16) HTN (hypertension) (17) Gastritis (18) GERD (gastroesophageal reflux disease) Review of Systems Review of Symptoms General ROS: no weight loss or fever Psychological ROS: no depression or mood changes, no memory loss Ophthalmic ROS: no visual changes or eye irritation ENT ROS: no nasal congestion, hearing loss, dizziness Allergy and Immunology ROS: no allergic symptoms or urticaria Hematological and Lymphatic ROS: no swollen glands, unusual bleeding or bruising Endocrine ROS: no polyuria, polydipsia, weight changes, temperature intolerance Respiratory ROS: no cough, shortness of breath, or wheezing Cardiovascular ROS: no chest pain or dyspnea on exertion Gastrointestinal ROS: abdominal pain, no bright red blood in stool. Musculoskeletal ROS: no myalgias or arthralgias Neurological ROS: no TIA or stroke symptoms Dermatological ROS: no new or changing skin lesions, rashes or pruritis Physical Exam Physical Exam General appearance: alert, cooperative, no distress, appears stated age Head: Normocephalic, without obvious abnormality, atraumatic Eyes: conjunctivae/corneas clear. PERRL, EOM's intact. Fundi benign Throat: Lips, mucosa, and tongue normal. Teeth and gums normal Neck: supple, symmetrical, trachea midline, no adenopathy, thyroid: not enlarged, symmetric, no tenderness/mass/nodules, no carotid bruit and no JVD Lungs: clear to auscultation bilaterally Heart: regular rate and rhythm, S1, S2 normal, no murmur, click, rub or gallop Abdomen: soft, non-tender. Bowel sounds normal. No masses, no organomegaly Extremities: extremities normal, atraumatic, no cyanosis or edema Pulses: 2+ and symmetric Skin: Skin color, texture, turgor normal. No rashes or lesions Neurologic: Grossly normal Last 24 Hour Vital Signs Date Time Temp Pulse Resp B/P (MAP) Pulse Ox O2 Delivery O2 Flow Rate FiO2 08/10/18 15:53 Room Air 08/10/18 15:05 98.1 76 12 134/80 100 Room Air 08/10/18 15:00 98.1 76 12 134/80 100 Room Air 08/10/18 14:00 89 18 138/86 100 Nasal Cannula 08/10/18 13:58 98.1 08/10/18 12:24 89 14 128/81 99 Room Air 08/10/18 10:40 97.5 89 16 145/84 96 Room Air 08/10/18 10:40 89 16 Room Air 08/10/18 10:28 97.5 89 16 159/95 96 Room Air Laboratory Tests Test 08/10/18 10:35 White Blood Count 5.0 K/UL (4.8-10.8) Red Blood Count 4.89 M/UL (4.20-5.40) Hemoglobin 13.7 G/DL (12.0-16.0) Hematocrit 42.2 % (37.0-47.0) Mean Corpuscular Volume 86 FL (80-99) Mean Corpuscular Hemoglobin 28.1 PG (27.0-31.0) Mean Corpuscular Hemoglobin Concent 32.5 G/DL (32.0-36.0) Red Cell Distribution Width 13.4 % (11.6-14.8) Platelet Count 165 K/UL (150-450) Mean Platelet Volume 7.5 FL (6.5-10.1) Neutrophils (%) (Auto) 72.4 % (45.0-75.0) Lymphocytes (%) (Auto) 21.3 % (20.0-45.0) Monocytes (%) (Auto) 4.3 % (1.0-10.0) Eosinophils (%) (Auto) 1.0 % (0.0-3.0) Basophils (%) (Auto) 1.1 % (0.0-2.0) Urine Color Pale yellow Urine Appearance Clear Urine pH 5 (4.5-8.0) Urine Specific [place] 1.015 (1.005-1.035) Urine Protein Negative (NEGATIVE) Urine Glucose (UA) Negative (NEGATIVE) Urine Ketones Negative (NEGATIVE) Urine Blood Negative (NEGATIVE) Urine Nitrite Negative (NEGATIVE) Urine Bilirubin Negative (NEGATIVE) Urine Urobilinogen Normal MG/DL (0.0-1.0) Urine Leukocyte Esterase Negative (NEGATIVE) Sodium Level 142 MMOL/L (136-145) Potassium Level 3.9 MMOL/L (3.5-5.1) Chloride Level 104 MMOL/L (98-107) Carbon Dioxide Level 25 MMOL/L (21-32) Anion Gap 13 mmol/L (5-15) Blood Urea Nitrogen 10 mg/dL (7-18) Creatinine 0.8 MG/DL (0.55-1.30) Estimat Glomerular Filtration Rate mL/min (>60) Glucose Level 106 MG/DL (74-106) Calcium Level 9.9 MG/DL (8.5-10.1) Total Bilirubin 0.8 MG/DL (0.2-1.0) Aspartate Amino Transf (AST/SGOT) 19 U/L (15-37) Alanine Aminotransferase (ALT/SGPT) 26 U/L (12-78) Alkaline Phosphatase 170 U/L (46-116) H Total Protein 8.1 G/DL (6.4-8.2) Albumin 3.9 G/DL (3.4-5.0) Globulin 4.2 g/dL Albumin/Globulin Ratio 0.9 (1.0-2.7) L Lipase 125 U/L (73-393) Height (Feet): 5 Height (Inches): 2.00 Weight (Pounds): 158 Medications Current Medications Medications (Trade) Dose Ordered Sig/Radha Route PRN Reason Start Time Stop Time Status Last Admin Dose Admin Acetaminophen (Tylenol) 650 mg Q4H PRN ORAL fever 08/10/18 15:15 09/09/18 15:14 Al Hydroxide/Mg Hydroxide (Mylanta II) 30 ml Q6H PRN ORAL dyspepsia 08/10/18 15:15 09/09/18 15:14 Bisacodyl (Dulcolax) 10 mg HSPRN PRN RECTAL Constipation 08/10/18 21:00 09/09/18 20:59 Dextrose (Dextrose 50%) 25 ml Q30M PRN IV Hypoglycemia 08/10/18 11:45 09/09/18 11:44 Dextrose (Dextrose 50%) 50 ml Q30M PRN IV Hypoglycemia 08/10/18 11:45 09/09/18 11:44 Dextrose/ Electrolytes 1,000 ml @ 150 mls/hr Q6H40M IV 08/10/18 16:00 09/09/18 15:59 Diphenhydramine HCl (Benadryl) 25 mg Q6H PRN ORAL Itching/Pruritis 08/10/18 15:15 09/09/18 15:14 Heparin Sodium (Porcine) (Heparin 5000 units/ml) 5,000 units EVERY 12 HOURS SUBQ 08/10/18 21:00 09/09/18 20:59 Iopamidol (Isovue-300 100ml) 100 ml NOW PRN INJ Radiology Procedure 08/10/18 10:45 Lorazepam (Ativan 2mg/ml 1ml) 0.5 mg Q4H PRN IV For Anxiety 08/10/18 11:45 08/17/18 11:44 Metoclopramide HCl (Reglan) 10 mg Q6H PRN IVP servere [place] 08/10/18 15:15 09/09/18 15:14 Morphine Sulfate (Morphine Sulfate) 2 mg Q3H PRN IVP Moderate Pain (Pain Scale 4-6) 08/10/18 11:45 08/17/18 11:44 Morphine Sulfate (Morphine Sulfate) 4 mg Q3H PRN IVP Severe Pain (Pain Scale 7-10) 08/10/18 11:45 08/17/18 11:44 Nitroglycerin (Ntg) 0.4 mg Q5M X 3 DOSES PRN SL Prn Chest Pain 08/10/18 15:15 09/09/18 15:14 Ondansetron HCl (Zofran) 4 mg Q6H PRN IVP Nausea & Vomiting 08/10/18 15:15 09/09/18 15:14 Pantoprazole (Protonix) 40 mg DAILY IV 08/10/18 16:00 09/09/18 15:59 Polyethylene Glycol (Miralax) 17 gm HSPRN PRN ORAL Constipation 08/10/18 15:15 09/09/18 15:14 Promethazine HCl (Phenergan) 25 mg Q6H PRN IM REFRACTORY N/V 08/10/18 15:30 09/09/18 15:29 Temazepam (Restoril) 15 mg HSPRN PRN ORAL Insomnia 08/10/18 21:00 08/17/18 20:59 Assessment/Plan Problem List: (1) SBO (small bowel obstruction) Assessment & Plan: 73F with possible SBO. Abdominal pain, nausea, emesis. cannot recall last BM or flatus. afebrile, HD stable, labs okay, exam benign. CT noted. Clinically does not seem obstructed Admit for further evaluation and work up npo iv fluids serial abdominal exams AM KUB may do small bowel contrast study tomorrow. ICD Codes: K56.69 - Other intestinal obstruction SNOMED: [id number] Jaren Hobson Aug 10, 2018 16:19
--- NOTE | 2018-08-10 18:43 | History & Physical ---
History and Physical History & Physicial dictated for Int Med-Dr Calvillo no. [id number]. Angus Brooks MD Aug 10, 2018 18:43
[2018-08-10 20:00] VITALS: BP 108/51
[2018-08-10] MEDS: Heparin 5000 units/ml inj SUBQ SCH (20:14)
[2018-08-11] VITALS: BP 109/59
[2018-08-11 04:00] VITALS: BP 120/60
[2018-08-11] MEDS: D5 1/2NS w/KCl 20mEq 1,000 ML IV SCH ×4 (05:20→18:40)
[2018-08-11 07:25] LABS: EOSINOPHILS % (AUTO) 3.3 % (0.0-3.0); HEMATOCRIT 39.4 % (37.0-47.0); HEMOGLOBIN 12.5 G/DL (12.0-16.0); LYMPHOCYTES % (AUTO) 27.4 % (20.0-45.0); MEAN CORPUSCULAR VOLUME 87 FL (80-99); NEUTROPHILS % (AUTO) 59.3 % (45.0-75.0); PLATELET COUNT 187 K/UL (150-450); RED BLOOD COUNT 4.52 M/UL (4.20-5.40); RED CELL DISTRIBUTION WIDTH 13.6 % (11.6-14.8); WHITE BLOOD COUNT 4.4 K/UL (4.8-10.8)
[2018-08-11 07:49] LABS: AMYLASE 71 U/L (25-115)
[2018-08-11 08:00] VITALS: BP 110/63
[2018-08-11 08:00] LABS: ALANINE AMINOTRANSFERASE 20 U/L (12-78); ALBUMIN 2.8 G/DL (3.4-5.0); ALBUMIN/GLOBULIN RATIO 0.8 (1.0-2.7); ALKALINE PHOSPHATASE 129 U/L (46-116); ANION GAP 8 mmol/L (5-15); ASPARTATE AMINO TRANSFERASE 16 U/L (15-37); BILIRUBIN,DIRECT 0.2 MG/DL (0.0-0.3); BILIRUBIN,TOTAL 1.2 MG/DL (0.2-1.0); BLOOD UREA NITROGEN 7 mg/dL (7-18); CALCIUM 8.5 MG/DL (8.5-10.1); CARBON DIOXIDE 28 MMOL/L (21-32); CHLORIDE 106 MMOL/L (98-107); CHOLESTEROL 185 MG/DL (< 200); CREATININE 0.8 MG/DL (0.55-1.30); HDL CHOLESTEROL 67 MG/DL (40-60); POTASSIUM 3.6 MMOL/L (3.5-5.1); SODIUM 142 MMOL/L (136-145); TRIGLYCERIDES 106 MG/DL (30-150)
[2018-08-11] MEDS: Pantoprazole Inj IV SCH (08:20)
[2018-08-11] MEDS: Heparin 5000 units/ml inj SUBQ SCH ×2 (08:20→20:45)
[2018-08-11] MEDS ORDERED: Pantoprazole Inj IV SCH (09:00)
--- NOTE | 2018-08-11 11:54 | GI Initial Consult Note ---
History of Present Illness General Date patient seen: Aug 11, 2018 Time patient seen: 11:49 Reason for Hospitalization: Abdominal Pain Referring physician: DESTINEY PEDRAZA Reason for Consultation: SBO Present Illness HPI Patient states that for the past 2 days she has had abdominal pain. She states she has a history of gastritis and hiatal hernia. She is seen by Dr. Zheng who has done an upper endoscopy and a colonoscopy. She states she has had nausea, vomiting, upper abdominal pain and constipation for the past 3 days. She states that she has a history of constipation. She denies dysuria or hematuria. She denies fever or chills. She denies chest pain or shortness of breath. She has no other complaints. GI consulted for abdominal pain r/o SBO. Patient is known to us from prior admissions. The patient suffers from chronic GERD, has been on multiple antacids to help relieve her pain. Patient seen, awake alert and oriented x4 no apparent distress. The abdomen is soft, nontender, nondistended. Patient states that she is having small bowel movements. Has current complaint of abdominal pain. Had recent EGD/colonoscopy as summarized below. Presents today with possible SBO on recent CT. SUMMARY OF FINDINGS: 1. A 3-cm hiatal hernia. 2. Distal esophageal ring. 3. GE junction was found at about 30 cm from the incisors, so short esophagus. 4. Multiple gastric polyps, most probably fundic gland polyps. 5. Gastritis, status post biopsy. 6. Fair colonic prep without any obvious findings. 7. Internal hemorrhoids. Home Meds Active Scripts Ranitidine Hcl* (ZANTAC*) 150 Mg Tablet, 150 MG ORAL TWICE A DAY for 10 Days, # 20 TAB Prov:Lise Manuel 12/08/17 Reported Medications Sucralfate* (CARAFATE*) 1 Gm Tablet, 1 GM ORAL BID for 3 Days, TAB 05/09/18 Allergies: Coded Allergies: Broccoli (Verified Allergy, Unknown, 08/10/18) IBUPROFEN (Verified Allergy, Unknown, 08/10/18) LACTOSE (Verified Allergy, Unknown, 08/10/18) Lactose intolerant MILK (Verified Allergy, Unknown, 08/10/18) ONION (Verified Allergy, Unknown, 08/10/18) ORANGE JUICE (Verified Allergy, Unknown, 08/10/18) TOMATO (Verified Allergy, Unknown, 08/10/18) Patient History PMH Narrative Past Medical History: see triage record, old chart reviewed, HTN, GERD, other - Gastritis, Hiatal hernia, short esophagus, nerve deafness, cataracts Past Surgical History: hysterectomy Social History: Denies: smoking, alcohol use, drug use Last Menstrual Period: MENOPAUSE Reviewed Nursing Documentation: PMH: Agreed; PSxH: Agreed Nursing Documentation-PMH Past Medical History: No History, Except For Hx Cardiac Problems: Yes Hx Hypertension: Yes Hx Pacemaker: No Hx Asthma: No Hx COPD: No Hx Diabetes: No Hx Cancer: No Hx Gastrointestinal Problems: Yes - esophageal ring , gastric polyps Hx Dialysis: No Hx Neurological Problems: No Hx Cerebrovascular Accident: No Hx Seizures: No Social History: Denies: smoking, alcohol use, drug use, other Review of Systems All Other Systems: negative except mentioned in HPI Physical Exam Vital Signs Date Time Temp Pulse Resp B/P (MAP) Pulse Ox O2 Delivery O2 Flow Rate FiO2 08/10/18 10:28 97.5 89 16 159/95 96 Room Air Sp02 EP Interpretation: reviewed, normal Labs Laboratory Tests Test 08/11/18 05:30 White Blood Count 4.4 K/UL (4.8-10.8) L Red Blood Count 4.52 M/UL (4.20-5.40) Hemoglobin 12.5 G/DL (12.0-16.0) Hematocrit 39.4 % (37.0-47.0) Mean Corpuscular Volume 87 FL (80-99) Mean Corpuscular Hemoglobin 27.7 PG (27.0-31.0) Mean Corpuscular Hemoglobin Concent 31.8 G/DL (32.0-36.0) L Red Cell Distribution Width 13.6 % (11.6-14.8) Platelet Count 187 K/UL (150-450) Mean Platelet Volume 8.0 FL (6.5-10.1) Neutrophils (%) (Auto) 59.3 % (45.0-75.0) Lymphocytes (%) (Auto) 27.4 % (20.0-45.0) Monocytes (%) (Auto) 9.0 % (1.0-10.0) Eosinophils (%) (Auto) 3.3 % (0.0-3.0) H Basophils (%) (Auto) 1.0 % (0.0-2.0) Activated Partial Thromboplast Time 21 SEC (23-33) L Sodium Level 142 MMOL/L (136-145) Potassium Level 3.6 MMOL/L (3.5-5.1) Chloride Level 106 MMOL/L (98-107) Carbon Dioxide Level 28 MMOL/L (21-32) Anion Gap 8 mmol/L (5-15) Blood Urea Nitrogen 7 mg/dL (7-18) Creatinine 0.8 MG/DL (0.55-1.30) Estimat Glomerular Filtration Rate mL/min (>60) Glucose Level 82 MG/DL (74-106) Calcium Level 8.5 MG/DL (8.5-10.1) Magnesium Level 1.9 MG/DL (1.8-2.4) Total Bilirubin 1.2 MG/DL (0.2-1.0) H Direct Bilirubin 0.2 MG/DL (0.0-0.3) Aspartate Amino Transf (AST/SGOT) 16 U/L (15-37) Alanine Aminotransferase (ALT/SGPT) 20 U/L (12-78) Alkaline Phosphatase 129 U/L (46-116) H Total Protein 6.3 G/DL (6.4-8.2) L Albumin 2.8 G/DL (3.4-5.0) L Globulin 3.5 g/dL Albumin/Globulin Ratio 0.8 (1.0-2.7) L Triglycerides Level 106 MG/DL (30-150) Cholesterol Level 185 MG/DL (< 200) LDL Cholesterol 99 mg/dL (<100) HDL Cholesterol 67 MG/DL (40-60) H Cholesterol/HDL Ratio 2.8 (3.3-4.4) L Amylase Level 71 U/L (25-115) Lipase 123 U/L (73-393) General Appearance: well appearing, no apparent distress, alert Head: normocephalic EENT: PERRL/EOMI, normal ENT inspection Neck: supple Respiratory: normal breath sounds, no respiratory distress Cardiovascular: normal rate Gastrointestinal: normal inspection, non tender, soft, normal bowel sounds, non -distended Rectal: deferred Genitourinary: no CVA tenderness Musculoskeletal: normal inspection, back normal Neurologic: normal inspection, alert, oriented x3, responsive Psychiatric: normal inspection, judgement/insight normal, memory normal Skin: normal inspection, normal color, no rash, warm/dry, palpation normal, well hydrated Lymphatic: normal inspection, no adenopathy Current Medications Current Medications Medications (Trade) Dose Ordered Sig/Radha Route PRN Reason Start Time Stop Time Status Last Admin Dose Admin Acetaminophen (Tylenol) 650 mg Q4H PRN ORAL fever 08/10/18 15:15 09/09/18 15:14 Al Hydroxide/Mg Hydroxide (Mylanta II) 30 ml Q6H PRN ORAL dyspepsia 08/10/18 15:15 09/09/18 15:14 Bisacodyl (Dulcolax) 10 mg HSPRN PRN RECTAL Constipation 08/10/18 21:00 09/09/18 20:59 Dextrose (Dextrose 50%) 25 ml Q30M PRN IV Hypoglycemia 08/10/18 11:45 09/09/18 11:44 Dextrose (Dextrose 50%) 50 ml Q30M PRN IV Hypoglycemia 08/10/18 11:45 09/09/18 11:44 Dextrose/ Electrolytes 1,000 ml @ 150 mls/hr Q6H40M IV 08/10/18 16:00 09/09/18 15:59 08/10/18 16:18 Diphenhydramine HCl (Benadryl) 25 mg Q6H PRN ORAL Itching/Pruritis 08/10/18 15:15 09/09/18 15:14 Heparin Sodium (Porcine) (Heparin 5000 units/ml) 5,000 units EVERY 12 HOURS SUBQ 08/10/18 21:00 09/09/18 20:59 08/11/18 08:20 Iopamidol (Isovue-300 100ml) 100 ml NOW PRN INJ Radiology Procedure 08/10/18 10:45 Lorazepam (Ativan 2mg/ml 1ml) 0.5 mg Q4H PRN IV For Anxiety 08/10/18 11:45 08/17/18 11:44 Metoclopramide HCl (Reglan) 10 mg Q6H PRN IVP servere [place] 08/10/18 15:15 09/09/18 15:14 Morphine Sulfate (Morphine Sulfate) 2 mg Q3H PRN IVP Moderate Pain (Pain Scale 4-6) 08/10/18 11:45 08/17/18 11:44 Morphine Sulfate (Morphine Sulfate) 4 mg Q3H PRN IVP Severe Pain (Pain Scale 7-10) 08/10/18 11:45 08/17/18 11:44 Nitroglycerin (Ntg) 0.4 mg Q5M X 3 DOSES PRN SL Prn Chest Pain 08/10/18 15:15 09/09/18 15:14 Ondansetron HCl (Zofran) 4 mg Q6H PRN IVP Nausea & Vomiting 08/10/18 15:15 09/09/18 15:14 Pantoprazole (Protonix) 40 mg DAILY IV 08/10/18 16:00 09/09/18 15:59 08/11/18 08:20 Polyethylene Glycol (Miralax) 17 gm HSPRN PRN ORAL Constipation 08/10/18 15:15 09/09/18 15:14 08/11/18 08:20 Promethazine HCl (Phenergan) 25 mg Q6H PRN IM REFRACTORY N/V 08/10/18 15:30 09/09/18 15:29 Temazepam (Restoril) 15 mg HSPRN PRN ORAL Insomnia 08/10/18 21:00 08/17/18 20:59 GI: Plan Problems: (1) GERD (gastroesophageal reflux disease) (2) Gastritis (3) Nausea & vomiting (4) SBO (small bowel obstruction) (5) GI (gastrointestinal bleed) (6) Gastroenteritis Plan Recent EGD and colonoscopy SUMMARY OF FINDINGS: 1. A 3-cm hiatal hernia. 2. Distal esophageal ring. 3. GE junction was found at about 30 cm from the incisors, so short esophagus. 4. Multiple gastric polyps, most probably fundic gland polyps. 5. Gastritis, status post biopsy. 6. Fair colonic prep without any obvious findings. 7. Internal hemorrhoids. Patient pending small bowel follow-through today Follow-up surgical recommendations Maintain n.p.o. plus IV fluids PPI Zofran as needed Pain management We will follow with additional recommendations post imaging study. Discussed with Dr. Zheng. Thank you for this patient referral, we will follow. The patient was seen and examined at bedside and all new and available data was reviewed in the patients chart. I agree with the above findings, impression and plan. (Patient seen earlier today. Signature stamp does not reflect patient encounter time.). - MD Arlin [facility] [employer] ADMINISTRATOR Aug 11, 2018 11:54
[2018-08-11 12:00] VITALS: BP 136/66
--- NOTE | 2018-08-11 12:16 | Consultation ---
History of Present Illness General Date patient seen: Aug 11, 2018 Chief Complaint: Abdominal Pain Referring physician: DESTINEY PEDRAZA Reason for Consultation: inpatient management Present Illness HPI 73 year old female with hx of of OBO, gastritis, hiatal hernia, pancreatitis, chronic constipation, CAD, HTN, presented to ER with CC of abdominal pain. She states she has had nausea, vomiting, upper abdominal pain and constipation for the past 3 days. She denies chest pain or shortness of breath. she was diagnosed to have partial SBO and admitted for further management. Allergies: Coded Allergies: Broccoli (Verified Allergy, Unknown, 08/10/18) IBUPROFEN (Verified Allergy, Unknown, 08/10/18) LACTOSE (Verified Allergy, Unknown, 08/10/18) Lactose intolerant MILK (Verified Allergy, Unknown, 08/10/18) ONION (Verified Allergy, Unknown, 08/10/18) ORANGE JUICE (Verified Allergy, Unknown, 08/10/18) TOMATO (Verified Allergy, Unknown, 08/10/18) Medication History Scheduled Ranitidine Hcl* (Zantac*), 150 MG ORAL TWICE A DAY Sucralfate* (Carafate*), 1 GM ORAL BID, (Reported) Patient History Healthcare decision maker Resuscitation status Full Code Advanced Directive on File Past Medical/Surgical History Past Medical/Surgical History: (1) GERD (gastroesophageal reflux disease) (2) Anxiety disorder (3) 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 (4) MDD (major depressive disorder) (5) SBO (small bowel obstruction) (6) Hiatal hernia Review of Systems All Other Systems: negative except mentioned in HPI Physical Exam General Appearance: WD/WN Lines, tubes and drains: peripheral, PICC HEENT: normocephalic, atraumatic Neck: non-tender, supple Respiratory/Chest: lungs clear, normal breath sounds Cardiovascular/Chest: normal peripheral pulses, normal rate Abdomen: normal bowel sounds, non tender Genitourinary/Rectal: normal genital exam Extremities: normal range of motion, non-tender Last 24 Hour Vital Signs Date Time Temp Pulse Resp B/P (MAP) Pulse Ox O2 Delivery O2 Flow Rate FiO2 08/11/18 09:00 Room Air 08/11/18 08:00 97.8 69 18 110/63 (79) 96 08/11/18 04:00 98.2 69 18 120/60 (80) 96 08/11/18 00:00 97.9 82 20 109/59 (76) 97 08/10/18 21:00 Room Air 08/10/18 20:00 97.9 68 18 108/51 (70) 98 08/10/18 16:00 98.4 77 18 109/56 (73) 96 08/10/18 15:53 Room Air 08/10/18 15:05 98.1 76 12 134/80 100 Room Air 08/10/18 15:00 98.1 76 12 134/80 100 Room Air 08/10/18 14:00 89 18 138/86 100 Nasal Cannula 08/10/18 13:58 98.1 08/10/18 12:24 89 14 128/81 99 Room Air Intake and Output 08/10/18 08/11/18 19:00 07:00 Intake Total 2000 ml Balance 2000 ml Intake IV Total 2000 ml # Voids 1 1 Laboratory Tests Test 08/11/18 05:30 White Blood Count 4.4 K/UL (4.8-10.8) L Red Blood Count 4.52 M/UL (4.20-5.40) Hemoglobin 12.5 G/DL (12.0-16.0) Hematocrit 39.4 % (37.0-47.0) Mean Corpuscular Volume 87 FL (80-99) Mean Corpuscular Hemoglobin 27.7 PG (27.0-31.0) Mean Corpuscular Hemoglobin Concent 31.8 G/DL (32.0-36.0) L Red Cell Distribution Width 13.6 % (11.6-14.8) Platelet Count 187 K/UL (150-450) Mean Platelet Volume 8.0 FL (6.5-10.1) Neutrophils (%) (Auto) 59.3 % (45.0-75.0) Lymphocytes (%) (Auto) 27.4 % (20.0-45.0) Monocytes (%) (Auto) 9.0 % (1.0-10.0) Eosinophils (%) (Auto) 3.3 % (0.0-3.0) H Basophils (%) (Auto) 1.0 % (0.0-2.0) Activated Partial Thromboplast Time 21 SEC (23-33) L Sodium Level 142 MMOL/L (136-145) Potassium Level 3.6 MMOL/L (3.5-5.1) Chloride Level 106 MMOL/L (98-107) Carbon Dioxide Level 28 MMOL/L (21-32) Anion Gap 8 mmol/L (5-15) Blood Urea Nitrogen 7 mg/dL (7-18) Creatinine 0.8 MG/DL (0.55-1.30) Estimat Glomerular Filtration Rate mL/min (>60) Glucose Level 82 MG/DL (74-106) Calcium Level 8.5 MG/DL (8.5-10.1) Magnesium Level 1.9 MG/DL (1.8-2.4) Total Bilirubin 1.2 MG/DL (0.2-1.0) H Direct Bilirubin 0.2 MG/DL (0.0-0.3) Aspartate Amino Transf (AST/SGOT) 16 U/L (15-37) Alanine Aminotransferase (ALT/SGPT) 20 U/L (12-78) Alkaline Phosphatase 129 U/L (46-116) H Total Protein 6.3 G/DL (6.4-8.2) L Albumin 2.8 G/DL (3.4-5.0) L Globulin 3.5 g/dL Albumin/Globulin Ratio 0.8 (1.0-2.7) L Triglycerides Level 106 MG/DL (30-150) Cholesterol Level 185 MG/DL (< 200) LDL Cholesterol 99 mg/dL (<100) HDL Cholesterol 67 MG/DL (40-60) H Cholesterol/HDL Ratio 2.8 (3.3-4.4) L Amylase Level 71 U/L (25-115) Lipase 123 U/L (73-393) Height (Feet): 5 Height (Inches): 2.00 Weight (Pounds): 158 Medications Current Medications Medications (Trade) Dose Ordered Sig/Radha Route PRN Reason Start Time Stop Time Status Last Admin Dose Admin Acetaminophen (Tylenol) 650 mg Q4H PRN ORAL fever 08/10/18 15:15 09/09/18 15:14 Al Hydroxide/Mg Hydroxide (Mylanta II) 30 ml Q6H PRN ORAL dyspepsia 08/10/18 15:15 09/09/18 15:14 Bisacodyl (Dulcolax) 10 mg HSPRN PRN RECTAL Constipation 08/10/18 21:00 09/09/18 20:59 Dextrose (Dextrose 50%) 25 ml Q30M PRN IV Hypoglycemia 08/10/18 11:45 09/09/18 11:44 Dextrose (Dextrose 50%) 50 ml Q30M PRN IV Hypoglycemia 08/10/18 11:45 09/09/18 11:44 Dextrose/ Electrolytes 1,000 ml @ 150 mls/hr Q6H40M IV 08/10/18 16:00 09/09/18 15:59 08/10/18 16:18 Diphenhydramine HCl (Benadryl) 25 mg Q6H PRN ORAL Itching/Pruritis 08/10/18 15:15 09/09/18 15:14 Heparin Sodium (Porcine) (Heparin 5000 units/ml) 5,000 units EVERY 12 HOURS SUBQ 08/10/18 21:00 09/09/18 20:59 08/11/18 08:20 Iopamidol (Isovue-300 100ml) 100 ml NOW PRN INJ Radiology Procedure 08/10/18 10:45 Lorazepam (Ativan 2mg/ml 1ml) 0.5 mg Q4H PRN IV For Anxiety 08/10/18 11:45 08/17/18 11:44 Metoclopramide HCl (Reglan) 10 mg Q6H PRN IVP servere nauasea 08/10/18 15:15 09/09/18 15:14 Morphine Sulfate (Morphine Sulfate) 2 mg Q3H PRN IVP Moderate Pain (Pain Scale 4-6) 08/10/18 11:45 08/17/18 11:44 Morphine Sulfate (Morphine Sulfate) 4 mg Q3H PRN IVP Severe Pain (Pain Scale 7-10) 08/10/18 11:45 08/17/18 11:44 Nitroglycerin (Ntg) 0.4 mg Q5M X 3 DOSES PRN SL Prn Chest Pain 08/10/18 15:15 09/09/18 15:14 Ondansetron HCl (Zofran) 4 mg Q6H PRN IVP Nausea & Vomiting 08/10/18 15:15 09/09/18 15:14 Pantoprazole (Protonix) 40 mg DAILY IV 08/10/18 16:00 09/09/18 15:59 08/11/18 08:20 Polyethylene Glycol (Miralax) 17 gm HSPRN PRN ORAL Constipation 08/10/18 15:15 09/09/18 15:14 08/11/18 08:20 Promethazine HCl (Phenergan) 25 mg Q6H PRN IM REFRACTORY N/V 08/10/18 15:30 09/09/18 15:29 Temazepam (Restoril) 15 mg HSPRN PRN ORAL Insomnia 08/10/18 21:00 08/17/18 20:59 Assessment/Plan Problem List: (1) Partial small bowel obstruction ICD Codes: K56.69 - Other intestinal obstruction SNOMED: 098589578, 155339301 (2) HTN (hypertension) ICD Codes: I10 - Essential (primary) hypertension SNOMED: 36849708 (3) GERD (gastroesophageal reflux disease) ICD Codes: K21.9 - Gastro-esophageal reflux disease without esophagitis SNOMED: 534569226 Assessment/Plan NPO iv fluids check electrolytes symptomatic treatment f/u GI recommendations titrate O2 to sat of 92% Chano Ling MD Aug 11, 2018 12:16
--- NOTE | 2018-08-11 13:51 | History and Physical Report ---
DATE OF ADMISSION: 08/10/2018 CHIEF COMPLAINT: The patient is a 33-year-old female, presents with chief complaint of abdominal pain, nausea, vomiting, and constipation. HISTORY OF PRESENT ILLNESS: The patient was admitted to [facility] in May of 2018. Please see history and physical and discharge summary dictated at that time. History of present illness began two days prior to admission. The patient began to have abdominal pain. The patient also has had nausea and vomiting. Abdominal pain appears to be in the upper epigastric region. The patient also has had constipation for last three days. The patient presented to [place] emergency room. The patient is admitted with nausea, vomiting, abdominal pain, and constipation to rule out small bowel obstruction. REVIEW OF SYSTEMS: CONSTITUTIONAL: The patient denies weight loss or weight gain. The patient denies fevers or chills. HEENT: The patient denies ear or throat pain. CARDIOVASCULAR: The patient denies palpitations or chest pain. CHEST: The patient denies wheeze or shortness of breath. ABDOMEN: The patient complains of nausea, vomiting, abdominal pain, and constipation as above. NEUROMUSCULAR: The patient denies seizures or generalized weakness. GENITOURINARY: The patient denies dysuria or increased frequency of urination. PAST MEDICAL HISTORY: Significant for: 1. Gastritis. 2. Gastroesophageal reflux disease. 3. Hiatal hernia. 4. Hypertension. 5. Paget's disease of left femur. 6. Osteoarthritis of the lumbar spine. PAST SURGICAL HISTORY: Significant for exploratory laparotomy for tubo-ovarian abscess in 1972. CURRENT MEDICATIONS: 1. Zantac 150 mg p.o. twice daily. 2. Carafate 1 g p.o. twice daily. ALLERGIES: 1. Ibuprofen. 2. Lactose intolerance. 3. Fluid allergies including broccoli, milk, onion, orange juice, and tomato. SOCIAL HISTORY: The patient is single. The patient denies tobacco or alcohol use. PHYSICAL EXAMINATION: VITAL SIGNS: Temperature 98.1, respirations 18, pulse 89, blood pressure 130/86. GENERAL: The patient is a well-developed and well-nourished female, in no apparent distress. HEENT: Eyes, pupils are equal and responsive to light and accommodation. Extraocular movements are intact. NECK: Supple without lymphadenopathy. CHEST: Lungs are clear to auscultation bilaterally without wheezes or rales. CARDIOVASCULAR: Regular rhythm and rate. S1 and S2 normal without murmurs, rubs, or gallops. GASTROINTESTINAL: Soft and distended with decreased bowel sounds. No evidence of hepatosplenomegaly. Currently, no rebound or guarding noted. NEUROLOGIC: Cranial nerves II through XII are grossly intact without focal deficits. Motor strength is 5/5 bilaterally. Deep tendon reflexes are 2+ plantar. RECTAL/GENITAL: Refused. LABORATORY STUDIES: WBC 5.0, hemoglobin 13.7, hematocrit 42.2, and platelets 165,000. Sodium 142, potassium 3.9, chloride 104, CO2 25, BUN 10, creatinine 0.8, and glucose 106. A CT scan of the abdomen is pending. ASSESSMENT: This is a 73-year-old female. 1. Abdominal pain. 2. Nausea and vomiting. 3. Constipation. 4. Gastritis. 5. Gastroesophageal reflux disease. 6. Hiatal hernia. 7. Hypertension. 8. Paget's disease of left femur. 9. Osteoarthritis of the lumbar spine. TREATMENT: 1. Abdominal pain/nausea/vomiting/constipation. A General Surgery consultation has been obtained with Dr. Hobson. A CT scan of the abdomen is pending. The patient is currently NPO. We will follow recommendations of General Surgery. The patient may require NG tube if CT scan reveals small bowel obstruction. 2. Gastritis/gastroesophageal reflux disease. The patient is placed empirically on intravenous Protonix. 3. Hiatal hernia. 4. Hypertension. The patient is currently normotensive of medication. 5. Paget's disease of left femur. 6. Osteoarthritis of the lumbar spine. Angus Brooks M.D. DR: GAL JOB#: [id number] CC:
--- NOTE | 2018-08-11 15:43 | Surgery Progress Note ---
Surgery Progress Note Subjective Additional Comments doing well. no pain. feels like needs to have BM. contrast study okay Objective Last 24 Hour Vital Signs Date Time Temp Pulse Resp B/P (MAP) Pulse Ox O2 Delivery O2 Flow Rate FiO2 08/11/18 12:00 98.3 66 18 136/66 (89) 96 08/11/18 09:00 Room Air 08/11/18 08:00 97.8 69 18 110/63 (79) 96 08/11/18 04:00 98.2 69 18 120/60 (80) 96 08/11/18 00:00 97.9 82 20 109/59 (76) 97 08/10/18 21:00 Room Air 08/10/18 20:00 97.9 68 18 108/51 (70) 98 08/10/18 16:00 98.4 77 18 109/56 (73) 96 08/10/18 15:53 Room Air I&O Intake and Output 08/10/18 08/11/18 19:00 07:00 Intake Total 2000 ml Balance 2000 ml Intake IV Total 2000 ml # Voids 1 1 Cardiovascular: RSR Respiratory: clear Abdomen: soft, distended, non-tender, present bowel sounds Extremities: no tenderness, no cyanosis Laboratory Tests Test 08/11/18 05:30 White Blood Count 4.4 K/UL (4.8-10.8) L Red Blood Count 4.52 M/UL (4.20-5.40) Hemoglobin 12.5 G/DL (12.0-16.0) Hematocrit 39.4 % (37.0-47.0) Mean Corpuscular Volume 87 FL (80-99) Mean Corpuscular Hemoglobin 27.7 PG (27.0-31.0) Mean Corpuscular Hemoglobin Concent 31.8 G/DL (32.0-36.0) L Red Cell Distribution Width 13.6 % (11.6-14.8) Platelet Count 187 K/UL (150-450) Mean Platelet Volume 8.0 FL (6.5-10.1) Neutrophils (%) (Auto) 59.3 % (45.0-75.0) Lymphocytes (%) (Auto) 27.4 % (20.0-45.0) Monocytes (%) (Auto) 9.0 % (1.0-10.0) Eosinophils (%) (Auto) 3.3 % (0.0-3.0) H Basophils (%) (Auto) 1.0 % (0.0-2.0) Activated Partial Thromboplast Time 21 SEC (23-33) L Sodium Level 142 MMOL/L (136-145) Potassium Level 3.6 MMOL/L (3.5-5.1) Chloride Level 106 MMOL/L (98-107) Carbon Dioxide Level 28 MMOL/L (21-32) Anion Gap 8 mmol/L (5-15) Blood Urea Nitrogen 7 mg/dL (7-18) Creatinine 0.8 MG/DL (0.55-1.30) Estimat Glomerular Filtration Rate mL/min (>60) Glucose Level 82 MG/DL (74-106) Calcium Level 8.5 MG/DL (8.5-10.1) Magnesium Level 1.9 MG/DL (1.8-2.4) Total Bilirubin 1.2 MG/DL (0.2-1.0) H Direct Bilirubin 0.2 MG/DL (0.0-0.3) Aspartate Amino Transf (AST/SGOT) 16 U/L (15-37) Alanine Aminotransferase (ALT/SGPT) 20 U/L (12-78) Alkaline Phosphatase 129 U/L (46-116) H Total Protein 6.3 G/DL (6.4-8.2) L Albumin 2.8 G/DL (3.4-5.0) L Globulin 3.5 g/dL Albumin/Globulin Ratio 0.8 (1.0-2.7) L Triglycerides Level 106 MG/DL (30-150) Cholesterol Level 185 MG/DL (< 200) LDL Cholesterol 99 mg/dL (<100) HDL Cholesterol 67 MG/DL (40-60) H Cholesterol/HDL Ratio 2.8 (3.3-4.4) L Amylase Level 71 U/L (25-115) Lipase 123 U/L (73-393) Plan Problems: (1) SBO (small bowel obstruction) Assessment & Plan: 73F with possible SBO. Abdominal pain, nausea, emesis. cannot recall last BM or flatus. afebrile, HD stable, labs okay, exam benign. CT noted. Clinically does not seem obstructed Admit for further evaluation and work up contrast study okay diet trial will monitor. thank you Jaren Hobson Aug 11, 2018 15:43
[2018-08-11 15:54] VITALS: BP 127/65
--- NOTE | 2018-08-11 17:42 | Internal Med Progress Note ---
Subjective Date of Service: Aug 11, 2018 Physician Name Angus Brooks Attending Physician Silvino Calvillo MD Current Medications Medications (Trade) Dose Ordered Sig/Radha Route PRN Reason Start Time Stop Time Status Last Admin Dose Admin Acetaminophen (Tylenol) 650 mg Q4H PRN ORAL fever 08/10/18 15:15 09/09/18 15:14 Al Hydroxide/Mg Hydroxide (Mylanta II) 30 ml Q6H PRN ORAL dyspepsia 08/10/18 15:15 09/09/18 15:14 Bisacodyl (Dulcolax) 10 mg HSPRN PRN RECTAL Constipation 08/10/18 21:00 09/09/18 20:59 Dextrose (Dextrose 50%) 25 ml Q30M PRN IV Hypoglycemia 08/10/18 11:45 09/09/18 11:44 Dextrose (Dextrose 50%) 50 ml Q30M PRN IV Hypoglycemia 08/10/18 11:45 09/09/18 11:44 Dextrose/ Electrolytes 1,000 ml @ 150 mls/hr Q6H40M IV 08/10/18 16:00 09/09/18 15:59 08/10/18 16:18 Diphenhydramine HCl (Benadryl) 25 mg Q6H PRN ORAL Itching/Pruritis 08/10/18 15:15 09/09/18 15:14 Heparin Sodium (Porcine) (Heparin 5000 units/ml) 5,000 units EVERY 12 HOURS SUBQ 08/10/18 21:00 09/09/18 20:59 08/11/18 08:20 Iopamidol (Isovue-300 100ml) 100 ml NOW PRN INJ Radiology Procedure 08/10/18 10:45 Lorazepam (Ativan 2mg/ml 1ml) 0.5 mg Q4H PRN IV For Anxiety 08/10/18 11:45 08/17/18 11:44 Metoclopramide HCl (Reglan) 10 mg Q6H PRN IVP servere nauasea 08/10/18 15:15 09/09/18 15:14 Morphine Sulfate (Morphine Sulfate) 2 mg Q3H PRN IVP Moderate Pain (Pain Scale 4-6) 08/10/18 11:45 08/17/18 11:44 Morphine Sulfate (Morphine Sulfate) 4 mg Q3H PRN IVP Severe Pain (Pain Scale 7-10) 08/10/18 11:45 08/17/18 11:44 Nitroglycerin (Ntg) 0.4 mg Q5M X 3 DOSES PRN SL Prn Chest Pain 08/10/18 15:15 09/09/18 15:14 Ondansetron HCl (Zofran) 4 mg Q6H PRN IVP Nausea & Vomiting 08/10/18 15:15 09/09/18 15:14 Pantoprazole (Protonix) 40 mg DAILY IV 08/10/18 16:00 09/09/18 15:59 08/11/18 08:20 Polyethylene Glycol (Miralax) 17 gm HSPRN PRN ORAL Constipation 08/10/18 15:15 09/09/18 15:14 08/11/18 08:20 Promethazine HCl (Phenergan) 25 mg Q6H PRN IM REFRACTORY N/V 08/10/18 15:30 09/09/18 15:29 Temazepam (Restoril) 15 mg HSPRN PRN ORAL Insomnia 08/10/18 21:00 08/17/18 20:59 Allergies: Coded Allergies: Broccoli (Verified Allergy, Unknown, 08/10/18) IBUPROFEN (Verified Allergy, Unknown, 08/10/18) LACTOSE (Verified Allergy, Unknown, 08/10/18) Lactose intolerant MILK (Verified Allergy, Unknown, 08/10/18) ONION (Verified Allergy, Unknown, 08/10/18) ORANGE JUICE (Verified Allergy, Unknown, 08/10/18) TOMATO (Verified Allergy, Unknown, 08/10/18) ROS Limited/Unobtainable: No Constitutional: Reports: no symptoms HEENT: Reports: no symptoms Cardiovascular: Reports: no symptoms Respiratory: Reports: no symptoms Gastrointestinal/Abdominal: Reports: abdominal pain, constipated, nausea, vomiting Genitourinary: Reports: no symptoms Neurologic/Psychiatric: Reports: no symptoms Subjective 73 YO F admitted with abdominal pain, nausea, vomiting and constipation. Now possible small bowel obstruction. Cover for Internal Med-Dr Calvillo Objective Last Vital Signs Date Time Temp Pulse Resp B/P (MAP) Pulse Ox O2 Delivery O2 Flow Rate FiO2 08/11/18 15:54 98.0 69 18 127/65 (85) 97 08/11/18 09:00 Room Air Laboratory Tests Test 08/11/18 05:30 White Blood Count 4.4 K/UL (4.8-10.8) L Red Blood Count 4.52 M/UL (4.20-5.40) Hemoglobin 12.5 G/DL (12.0-16.0) Hematocrit 39.4 % (37.0-47.0) Mean Corpuscular Volume 87 FL (80-99) Mean Corpuscular Hemoglobin 27.7 PG (27.0-31.0) Mean Corpuscular Hemoglobin Concent 31.8 G/DL (32.0-36.0) L Red Cell Distribution Width 13.6 % (11.6-14.8) Platelet Count 187 K/UL (150-450) Mean Platelet Volume 8.0 FL (6.5-10.1) Neutrophils (%) (Auto) 59.3 % (45.0-75.0) Lymphocytes (%) (Auto) 27.4 % (20.0-45.0) Monocytes (%) (Auto) 9.0 % (1.0-10.0) Eosinophils (%) (Auto) 3.3 % (0.0-3.0) H Basophils (%) (Auto) 1.0 % (0.0-2.0) Activated Partial Thromboplast Time 21 SEC (23-33) L Sodium Level 142 MMOL/L (136-145) Potassium Level 3.6 MMOL/L (3.5-5.1) Chloride Level 106 MMOL/L (98-107) Carbon Dioxide Level 28 MMOL/L (21-32) Anion Gap 8 mmol/L (5-15) Blood Urea Nitrogen 7 mg/dL (7-18) Creatinine 0.8 MG/DL (0.55-1.30) Estimat Glomerular Filtration Rate mL/min (>60) Glucose Level 82 MG/DL (74-106) Calcium Level 8.5 MG/DL (8.5-10.1) Magnesium Level 1.9 MG/DL (1.8-2.4) Total Bilirubin 1.2 MG/DL (0.2-1.0) H Direct Bilirubin 0.2 MG/DL (0.0-0.3) Aspartate Amino Transf (AST/SGOT) 16 U/L (15-37) Alanine Aminotransferase (ALT/SGPT) 20 U/L (12-78) Alkaline Phosphatase 129 U/L (46-116) H Total Protein 6.3 G/DL (6.4-8.2) L Albumin 2.8 G/DL (3.4-5.0) L Globulin 3.5 g/dL Albumin/Globulin Ratio 0.8 (1.0-2.7) L Triglycerides Level 106 MG/DL (30-150) Cholesterol Level 185 MG/DL (< 200) LDL Cholesterol 99 mg/dL (<100) HDL Cholesterol 67 MG/DL (40-60) H Cholesterol/HDL Ratio 2.8 (3.3-4.4) L Amylase Level 71 U/L (25-115) Lipase 123 U/L (73-393) Intake and Output 08/10/18 08/11/18 19:00 07:00 Intake Total 2000 ml Balance 2000 ml Intake IV Total 2000 ml # Voids 1 1 Objective PHYSICAL EXAMINATION: GENERAL: The patient is a well-developed and well-nourished female, in no apparent distress. HEENT: Eyes, pupils are equal and responsive to light and accommodation. Extraocular movements are intact. NECK: Supple without lymphadenopathy. CHEST: Lungs are clear to auscultation bilaterally without wheezes or rales. CARDIOVASCULAR: Regular rhythm and rate. S1 and S2 normal without murmurs, rubs, or gallops. GASTROINTESTINAL: Soft and distended with decreased bowel sounds. No evidence of hepatosplenomegaly. Currently, no rebound or guarding noted. NEUROLOGIC: Cranial nerves II through XII are grossly intact without focal deficits. Motor strength is 5/5 bilaterally. Deep tendon reflexes are 2+ plantar. RECTAL/GENITAL: Refused. Assessment/Plan Problem List: (1) Abdominal pain (2) Nausea & vomiting (3) Constipation (4) SBO (small bowel obstruction) Assessment & Plan: Await Upper GI with small bowel followthrough today . See GI and surgery note. 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
--- NOTE | 2018-08-11 19:15 | Diagnostic Imaging Report ---
Indication:Abdominal pain Technique: Grayscale and duplex Doppler imaging of the abdomen performed. Comparison: None Findings: The liver is unremarkable. The gallbladder is unremarkable. The demonstrated part of the pancreas, aorta and IVC show no abnormalities. There is a left renal cyst demonstrated measuring approximately 2.5 cm. CBD is 3.6 mm.. The spleen is normal in size. There is no biliary ductal dilatation identified. Doppler evaluation of the main portal vein shows patency. There is no ascites. No hydronephrosis seen. Impression: No acute findings. BI-RADS left renal cyst
--- NOTE | 2018-08-11 19:17 | Diagnostic Imaging Report ---
Indication: Abdominal pain COMPARISON: None FINDINGS: The canvas marker film demonstrates abnormal sclerosis of the left proximal femur with cortical thickening and irregular thickened trabecular markings. The findings are suspicious for Paget's disease. Please correlate clinically and evaluate further as needed. Small bowel series was performed utilizing water-soluble contrast material. Serial films were obtained. Water-soluble contrast was given. In comparison to the previous day there is less small bowel dilatation. Distal small bowel loops still show moderate distention. Contrast reaches the colon by about 45 minutes. There is no functional obstruction. IMPRESSION: No evidence of small bowel obstruction. Distended loops of distal small bowel may be postoperative in nature. Suspected Paget's disease.
[2018-08-11 20:00] VITALS: BP 114/65
[2018-08-12] VITALS: BP 110/62
[2018-08-12] MEDS: D5 1/2NS w/KCl 20mEq 1,000 ML IV SCH ×2 (01:20→08:00)
[2018-08-12 04:00] VITALS: BP 114/57
[2018-08-12 07:52] LABS: HEMATOCRIT 39.4 % (37.0-47.0); HEMOGLOBIN 12.7 G/DL (12.0-16.0); MEAN CORPUSCULAR VOLUME 87 FL (80-99); PLATELET COUNT 185 K/UL (150-450); RED BLOOD COUNT 4.51 M/UL (4.20-5.40); RED CELL DISTRIBUTION WIDTH 14.2 % (11.6-14.8); WHITE BLOOD COUNT 3.1 K/UL (4.8-10.8)
[2018-08-12 08:00] VITALS: BP 130/65
[2018-08-12] MEDS: Pantoprazole Inj IV SCH (09:17)
[2018-08-12] MEDS: Heparin 5000 units/ml inj SUBQ SCH (09:23)
[2018-08-12 09:42] LABS: ALANINE AMINOTRANSFERASE 21 U/L (12-78); ALBUMIN 3.1 G/DL (3.4-5.0); ALBUMIN/GLOBULIN RATIO 0.8 (1.0-2.7); ALKALINE PHOSPHATASE 135 U/L (46-116); AMYLASE 65 U/L (25-115); ANION GAP 9 mmol/L (5-15); ASPARTATE AMINO TRANSFERASE 19 U/L (15-37); BILIRUBIN,TOTAL 1.1 MG/DL (0.2-1.0); BLOOD UREA NITROGEN 10 mg/dL (7-18); CALCIUM 9.2 MG/DL (8.5-10.1); CARBON DIOXIDE 28 MMOL/L (21-32); CHLORIDE 104 MMOL/L (98-107); CREATININE 0.8 MG/DL (0.55-1.30); PHOSPHORUS 3.2 MG/DL (2.5-4.9); POTASSIUM 3.5 MMOL/L (3.5-5.1); SODIUM 141 MMOL/L (136-145)
--- NOTE | 2018-08-12 09:44 | General Progress Note ---
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 ICD Codes: M88.862 - Osteitis deformans of left lower leg SNOMED: 4897530, 481270131 (5) Chronic epigastric pain ICD Codes: R10.13 - Epigastric pain; G89.29 - Other chronic pain SNOMED: 57769319, 10242695 (6) Hiatal hernia ICD Codes: K44.9 - Hiatal hernia SNOMED: 29627925 (7) Constipation ICD Codes: K59.00 - Constipation, unspecified SNOMED: 89486323 Assessment/Plan neg SBFT ppi and carafate bowel regimen fu labs Subjective ROS Limited/Unobtainable: Yes Allergies: Coded Allergies: Broccoli (Verified Allergy, Unknown, 08/10/18) IBUPROFEN (Verified Allergy, Unknown, 08/10/18) LACTOSE (Verified Allergy, Unknown, 08/10/18) Lactose intolerant MILK (Verified Allergy, Unknown, 08/10/18) ONION (Verified Allergy, Unknown, 08/10/18) ORANGE JUICE (Verified Allergy, Unknown, 08/10/18) TOMATO (Verified Allergy, Unknown, 08/10/18) Subjective has had multiple BM feeling better Objective Last 24 Hour Vital Signs Date Time Temp Pulse Resp B/P (MAP) Pulse Ox O2 Delivery O2 Flow Rate FiO2 08/12/18 04:00 97.8 67 20 114/57 (76) 97 08/12/18 00:00 99.0 91 20 110/62 (78) 97 08/11/18 21:00 Room Air 08/11/18 20:00 99.1 95 20 114/65 (81) 97 08/11/18 15:54 98.0 69 18 127/65 (85) 97 08/11/18 12:00 98.3 66 18 136/66 (89) 96 Intake and Output 08/11/18 08/12/18 18:59 06:59 Intake Total 600 ml Balance 600 ml Intake Oral 600 ml Laboratory Tests 08/12/18 05:30: White Blood Count 3.1L, Red Blood Count 4.51, Hemoglobin 12.7, Hematocrit 39.4, Mean Corpuscular Volume 87, Mean Corpuscular Hemoglobin 28.2, Mean Corpuscular Hemoglobin Concent 32.2, Red Cell Distribution Width 14.2, Platelet Count 185, Mean Platelet Volume 7.9, Neutrophils (%) (Auto) , Lymphocytes (%) (Auto) , Monocytes (%) (Auto) , Eosinophils (%) (Auto) , Basophils (%) (Auto) , Differential Total Cells Counted 100, Neutrophils % (Manual) 59, Lymphocytes % ( Manual) 29, Monocytes % (Manual) 11H, Eosinophils % (Manual) 1, Basophils % ( Manual) 0, Band Neutrophils 0, Platelet Estimate Adequate, Platelet Morphology Normal, Erythrocyte Sedimentation Rate 14 08/12/18 08:40: Sodium Level [Pending], Potassium Level [Pending], Chloride Level [Pending], Carbon Dioxide Level [Pending], Blood Urea Nitrogen [Pending], Creatinine [ Pending], Estimat Glomerular Filtration Rate [Pending], Glucose Level [Pending] , Calcium Level [Pending], Phosphorus Level [Pending], Magnesium Level [Pending] , Total Bilirubin [Pending], Aspartate Amino Transf (AST/SGOT) [Pending], Alanine Aminotransferase (ALT/SGPT) [Pending], Alkaline Phosphatase [Pending], C -Reactive Protein, Quantitative [Pending], Total Protein [Pending], Albumin [ Pending], Globulin [Pending], Amylase Level [Pending], Lipase [Pending] Height (Feet): 5 Height (Inches): 2.00 Weight (Pounds): 158 General Appearance: alert EENT: normal ENT inspection Neck: supple Cardiovascular: normal rate Respiratory/Chest: lungs clear Abdomen: normal bowel sounds, non tender, soft Extremities: non-tender Patrick Zheng MD Aug 12, 2018 09:44
[2018-08-12 09:46] LABS: BILIRUBIN,DIRECT 0.2 MG/DL (0.0-0.3)
[2018-08-12 12:00] VITALS: BP 104/52
--- NOTE | 2018-08-12 12:38 | Internal Med Progress Note ---
Subjective Date of Service: Aug 12, 2018 Physician Name Angus Brooks Attending Physician Silvino Calvillo MD Current Medications Medications (Trade) Dose Ordered Sig/Radha Route PRN Reason Start Time Stop Time Status Last Admin Dose Admin Acetaminophen (Tylenol) 650 mg Q4H PRN ORAL fever 08/10/18 15:15 09/09/18 15:14 Al Hydroxide/Mg Hydroxide (Mylanta II) 30 ml Q6H PRN ORAL dyspepsia 08/10/18 15:15 09/09/18 15:14 Bisacodyl (Dulcolax) 10 mg HSPRN PRN RECTAL Constipation 08/10/18 21:00 09/09/18 20:59 Dextrose (Dextrose 50%) 25 ml Q30M PRN IV Hypoglycemia 08/10/18 11:45 09/09/18 11:44 Dextrose (Dextrose 50%) 50 ml Q30M PRN IV Hypoglycemia 08/10/18 11:45 09/09/18 11:44 Dextrose/ Electrolytes 1,000 ml @ 150 mls/hr Q6H40M IV 08/10/18 16:00 09/09/18 15:59 08/10/18 16:18 Diphenhydramine HCl (Benadryl) 25 mg Q6H PRN ORAL Itching/Pruritis 08/10/18 15:15 09/09/18 15:14 Heparin Sodium (Porcine) (Heparin 5000 units/ml) 5,000 units EVERY 12 HOURS SUBQ 08/10/18 21:00 09/09/18 20:59 08/12/18 09:23 Iopamidol (Isovue-300 100ml) 100 ml NOW PRN INJ Radiology Procedure 08/10/18 10:45 Lorazepam (Ativan 2mg/ml 1ml) 0.5 mg Q4H PRN IV For Anxiety 08/10/18 11:45 08/17/18 11:44 Metoclopramide HCl (Reglan) 10 mg Q6H PRN IVP servere nauasea 08/10/18 15:15 09/09/18 15:14 Morphine Sulfate (Morphine Sulfate) 2 mg Q3H PRN IVP Moderate Pain (Pain Scale 4-6) 08/10/18 11:45 08/17/18 11:44 Morphine Sulfate (Morphine Sulfate) 4 mg Q3H PRN IVP Severe Pain (Pain Scale 7-10) 08/10/18 11:45 08/17/18 11:44 Nitroglycerin (Ntg) 0.4 mg Q5M X 3 DOSES PRN SL Prn Chest Pain 08/10/18 15:15 09/09/18 15:14 Ondansetron HCl (Zofran) 4 mg Q6H PRN IVP Nausea & Vomiting 08/10/18 15:15 09/09/18 15:14 Pantoprazole (Protonix) 40 mg DAILY IV 08/10/18 16:00 09/09/18 15:59 08/12/18 09:17 Polyethylene Glycol (Miralax) 17 gm HSPRN PRN ORAL Constipation 08/10/18 15:15 09/09/18 15:14 08/11/18 08:20 Promethazine HCl (Phenergan) 25 mg Q6H PRN IM REFRACTORY N/V 08/10/18 15:30 09/09/18 15:29 Temazepam (Restoril) 15 mg HSPRN PRN ORAL Insomnia 08/10/18 21:00 08/17/18 20:59 Allergies: Coded Allergies: Broccoli (Verified Allergy, Unknown, 08/10/18) IBUPROFEN (Verified Allergy, Unknown, 08/10/18) LACTOSE (Verified Allergy, Unknown, 08/10/18) Lactose intolerant MILK (Verified Allergy, Unknown, 08/10/18) ONION (Verified Allergy, Unknown, 08/10/18) ORANGE JUICE (Verified Allergy, Unknown, 08/10/18) TOMATO (Verified Allergy, Unknown, 08/10/18) ROS Limited/Unobtainable: No Constitutional: Reports: no symptoms HEENT: Reports: no symptoms Cardiovascular: Reports: no symptoms Respiratory: Reports: no symptoms Gastrointestinal/Abdominal: Reports: no symptoms Genitourinary: Reports: no symptoms Neurologic/Psychiatric: Reports: no symptoms Subjective 73 YO F admitted with abdominal pain, nausea, vomiting and constipation. Now possible small bowel obstruction. Cover for Internal Med-Dr Calvillo Objective Last Vital Signs Date Time Temp Pulse Resp B/P (MAP) Pulse Ox O2 Delivery O2 Flow Rate FiO2 08/12/18 09:00 Room Air 08/12/18 08:00 97.8 69 18 130/65 (86) 98 Laboratory Tests Test 08/12/18 05:30 08/12/18 08:40 White Blood Count 3.1 K/UL (4.8-10.8) L Red Blood Count 4.51 M/UL (4.20-5.40) Hemoglobin 12.7 G/DL (12.0-16.0) Hematocrit 39.4 % (37.0-47.0) Mean Corpuscular Volume 87 FL (80-99) Mean Corpuscular Hemoglobin 28.2 PG (27.0-31.0) Mean Corpuscular Hemoglobin Concent 32.2 G/DL (32.0-36.0) Red Cell Distribution Width 14.2 % (11.6-14.8) Platelet Count 185 K/UL (150-450) Mean Platelet Volume 7.9 FL (6.5-10.1) Neutrophils (%) (Auto) % (45.0-75.0) Lymphocytes (%) (Auto) % (20.0-45.0) Monocytes (%) (Auto) % (1.0-10.0) Eosinophils (%) (Auto) % (0.0-3.0) Basophils (%) (Auto) % (0.0-2.0) Differential Total Cells Counted 100 Neutrophils % (Manual) 59 % (45-75) Lymphocytes % (Manual) 29 % (20-45) Monocytes % (Manual) 11 % (1-10) H Eosinophils % (Manual) 1 % (0-3) Basophils % (Manual) 0 % (0-2) Band Neutrophils 0 % (0-8) Platelet Estimate Adequate Platelet Morphology Normal Erythrocyte Sedimentation Rate 14 MM/HR (0-30) Sodium Level 141 MMOL/L (136-145) Potassium Level 3.5 MMOL/L (3.5-5.1) Chloride Level 104 MMOL/L (98-107) Carbon Dioxide Level 28 MMOL/L (21-32) Anion Gap 9 mmol/L (5-15) Blood Urea Nitrogen 10 mg/dL (7-18) Creatinine 0.8 MG/DL (0.55-1.30) Estimat Glomerular Filtration Rate mL/min (>60) Glucose Level 83 MG/DL (74-106) Calcium Level 9.2 MG/DL (8.5-10.1) Phosphorus Level 3.2 MG/DL (2.5-4.9) Magnesium Level 1.9 MG/DL (1.8-2.4) Total Bilirubin 1.1 MG/DL (0.2-1.0) H Direct Bilirubin 0.2 MG/DL (0.0-0.3) Aspartate Amino Transf (AST/SGOT) 19 U/L (15-37) Alanine Aminotransferase (ALT/SGPT) 21 U/L (12-78) Alkaline Phosphatase 135 U/L (46-116) H C-Reactive Protein, Quantitative 3.6 mg/dL (0.00-0.90) H Total Protein 6.8 G/DL (6.4-8.2) Albumin 3.1 G/DL (3.4-5.0) L Globulin 3.7 g/dL Albumin/Globulin Ratio 0.8 (1.0-2.7) L Amylase Level 65 U/L (25-115) Lipase 126 U/L (73-393) Intake and Output 08/11/18 08/12/18 19:00 07:00 Intake Total 600 ml Balance 600 ml Intake Oral 600 ml Objective PHYSICAL EXAMINATION: GENERAL: The patient is a well-developed and well-nourished female, in no apparent distress. HEENT: Eyes, pupils are equal and responsive to light and accommodation. Extraocular movements are intact. NECK: Supple without lymphadenopathy. CHEST: Lungs are clear to auscultation bilaterally without wheezes or rales. CARDIOVASCULAR: Regular rhythm and rate. S1 and S2 normal without murmurs, rubs, or gallops. GASTROINTESTINAL: Soft and distended with decreased bowel sounds. No evidence of hepatosplenomegaly. Currently, no rebound or guarding noted. NEUROLOGIC: Cranial nerves II through XII are grossly intact without focal deficits. Motor strength is 5/5 bilaterally. Deep tendon reflexes are 2+ plantar. RECTAL/GENITAL: Refused. Assessment/Plan Problem List: (1) Abdominal pain (2) Nausea & vomiting (3) Constipation (4) SBO (small bowel obstruction) Assessment & Plan: S/P Upper GI with small bowel followthrough 08/11/18=no obstruction. See GI and surgery note. 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
--- NOTE | 2018-08-12 13:49 | Pulmonology Progress Note ---
Assessment/Plan Problems: (1) Partial small bowel obstruction (2) HTN (hypertension) (3) GERD (gastroesophageal reflux disease) Assessment/Plan improving eating well wants to go home symptomatic treatment f/u as outpatient Subjective ROS Limited/Unobtainable: No Constitutional: Reports: no symptoms HEENT: Repors: no symptoms Allergies: Coded Allergies: Broccoli (Verified Allergy, Unknown, 08/10/18) IBUPROFEN (Verified Allergy, Unknown, 08/10/18) LACTOSE (Verified Allergy, Unknown, 08/10/18) Lactose intolerant MILK (Verified Allergy, Unknown, 08/10/18) ONION (Verified Allergy, Unknown, 08/10/18) ORANGE JUICE (Verified Allergy, Unknown, 08/10/18) TOMATO (Verified Allergy, Unknown, 08/10/18) Objective Last 24 Hour Vital Signs Date Time Temp Pulse Resp B/P (MAP) Pulse Ox O2 Delivery O2 Flow Rate FiO2 08/12/18 12:00 98.4 80 18 104/52 (69) 94 08/12/18 09:00 Room Air 08/12/18 08:00 97.8 69 18 130/65 (86) 98 08/12/18 04:00 97.8 67 20 114/57 (76) 97 08/12/18 00:00 99.0 91 20 110/62 (78) 97 08/11/18 21:00 Room Air 08/11/18 20:00 99.1 95 20 114/65 (81) 97 08/11/18 15:54 98.0 69 18 127/65 (85) 97 Intake and Output 08/11/18 08/12/18 19:00 07:00 Intake Total 600 ml Balance 600 ml Intake Oral 600 ml General Appearance: WD/WN HEENT: atraumatic, anicteric Respiratory/Chest: chest wall non-tender, normal breath sounds Breasts: no masses Cardiovascular: regular rhythm Abdomen: normal bowel sounds, no scars Extremities: no clubbing Laboratory Tests 08/12/18 05:30: White Blood Count 3.1L, Red Blood Count 4.51, Hemoglobin 12.7, Hematocrit 39.4, Mean Corpuscular Volume 87, Mean Corpuscular Hemoglobin 28.2, Mean Corpuscular Hemoglobin Concent 32.2, Red Cell Distribution Width 14.2, Platelet Count 185, Mean Platelet Volume 7.9, Neutrophils (%) (Auto) , Lymphocytes (%) (Auto) , Monocytes (%) (Auto) , Eosinophils (%) (Auto) , Basophils (%) (Auto) , Differential Total Cells Counted 100, Neutrophils % (Manual) 59, Lymphocytes % ( Manual) 29, Monocytes % (Manual) 11H, Eosinophils % (Manual) 1, Basophils % ( Manual) 0, Band Neutrophils 0, Platelet Estimate Adequate, Platelet Morphology Normal, Erythrocyte Sedimentation Rate 14 08/12/18 08:40: Sodium Level 141, Potassium Level 3.5, Chloride Level 104, Carbon Dioxide Level 28, Anion Gap 9, Blood Urea Nitrogen 10, Creatinine 0.8, Estimat Glomerular Filtration Rate , Glucose Level 83, Calcium Level 9.2, Phosphorus Level 3.2, Magnesium Level 1.9, Total Bilirubin 1.1H, Direct Bilirubin 0.2, Aspartate Amino Transf (AST/SGOT) 19, Alanine Aminotransferase (ALT/SGPT) 21, Alkaline Phosphatase 135H, C-Reactive Protein, Quantitative 3.6H, Total Protein 6.8, Albumin 3.1L, Globulin 3.7, Albumin/Globulin Ratio 0.8L, Amylase Level 65, Lipase 126 Current Medications Medications (Trade) Dose Ordered Sig/Radha Route PRN Reason Start Time Stop Time Status Last Admin Dose Admin Acetaminophen (Tylenol) 650 mg Q4H PRN ORAL fever 08/10/18 15:15 09/09/18 15:14 Al Hydroxide/Mg Hydroxide (Mylanta II) 30 ml Q6H PRN ORAL dyspepsia 08/10/18 15:15 09/09/18 15:14 Bisacodyl (Dulcolax) 10 mg HSPRN PRN RECTAL Constipation 08/10/18 21:00 09/09/18 20:59 Dextrose (Dextrose 50%) 25 ml Q30M PRN IV Hypoglycemia 08/10/18 11:45 09/09/18 11:44 Dextrose (Dextrose 50%) 50 ml Q30M PRN IV Hypoglycemia 08/10/18 11:45 09/09/18 11:44 Dextrose/ Electrolytes 1,000 ml @ 150 mls/hr Q6H40M IV 08/10/18 16:00 09/09/18 15:59 08/10/18 16:18 Diphenhydramine HCl (Benadryl) 25 mg Q6H PRN ORAL Itching/Pruritis 08/10/18 15:15 09/09/18 15:14 Heparin Sodium (Porcine) (Heparin 5000 units/ml) 5,000 units EVERY 12 HOURS SUBQ 08/10/18 21:00 09/09/18 20:59 08/12/18 09:23 Iopamidol (Isovue-300 100ml) 100 ml NOW PRN INJ Radiology Procedure 08/10/18 10:45 Lorazepam (Ativan 2mg/ml 1ml) 0.5 mg Q4H PRN IV For Anxiety 08/10/18 11:45 08/17/18 11:44 Metoclopramide HCl (Reglan) 10 mg Q6H PRN IVP servere nauasea 08/10/18 15:15 09/09/18 15:14 Morphine Sulfate (Morphine Sulfate) 2 mg Q3H PRN IVP Moderate Pain (Pain Scale 4-6) 08/10/18 11:45 08/17/18 11:44 Morphine Sulfate (Morphine Sulfate) 4 mg Q3H PRN IVP Severe Pain (Pain Scale 7-10) 08/10/18 11:45 08/17/18 11:44 Nitroglycerin (Ntg) 0.4 mg Q5M X 3 DOSES PRN SL Prn Chest Pain 08/10/18 15:15 09/09/18 15:14 Ondansetron HCl (Zofran) 4 mg Q6H PRN IVP Nausea & Vomiting 08/10/18 15:15 09/09/18 15:14 Pantoprazole (Protonix) 40 mg DAILY IV 08/10/18 16:00 09/09/18 15:59 08/12/18 09:17 Polyethylene Glycol (Miralax) 17 gm HSPRN PRN ORAL Constipation 08/10/18 15:15 09/09/18 15:14 08/11/18 08:20 Promethazine HCl (Phenergan) 25 mg Q6H PRN IM REFRACTORY N/V 08/10/18 15:30 09/09/18 15:29 Temazepam (Restoril) 15 mg HSPRN PRN ORAL Insomnia 08/10/18 21:00 08/17/18 20:59 Chano Ling MD Aug 12, 2018 13:49
[2018-08-12] MEDS ORDERED: PROTONIX40 M2 ORAL (14:31)
--- NOTE | 2018-08-13 10:23 | Discharge Summary ---
Discharge Summary Discharge Summary _ DATE OF ADMISSION: 08/10/2018 DATE OF DISCHARGE: 08/12/2018 ATTENDING MD: Dr. Silvino Calvillo DISCHARGED BY: Dr. Chano Ling CONSULTANTS: Dr. Chano Hobson [facility] H[facility]ITAL COURSE: Is a 33-year-old -[place] female, who presented to the hospital with chief complaint of abdominal pain, nausea, vomiting and constipation. Patient was admitted to [facility] in May 2018. History of present illness started 2 days prior to admission. Patient began to have abdominal pain. She also had nausea and vomiting. Abdominal pain appeared to be in the upper epigastric region. She also had constipation for the past 3 days. She has medical history significant for gastritis, GERD, hiatal hernia, hypertension , Paget's disease of the left femur and osteoarthritis of the lumbar spine. On evaluation at ED, blood work did not show any leukocytosis. Hemoglobin and hematocrit were stable. Electrolytes were normal. LFTs and lipase normal. Urinalysis negative. She had a CT imaging done of the abdomen and pelvis, per ER physician, was concerning for bowel obstruction. Patient refused NGT insertion at the ED. She was then admitted for evaluation of SBO, GERD, gastritis. Patient was placed on n.p.o. She was given IV Protonix. She was given IV fluids. GI and surgeon were consulted. Abdominal ultrasound did not show any acute findings. Small bowel with Gastrografin did not show any evidence of small bowel obstruction. There were distended loops of distal small bowel may be postoperative in nature. Clinically, patient did not seem obstructed. She was started trial on diet. She was given bowel regimen. She was tolerating diet well. She was eventually discharged home. FINAL DIAGNOSES: Possible small bowel obstruction Hypertension GERD Nominal pain with nausea and vomiting Constipation Gastritis Hiatal hernia Paget's disease of the left femur DISPOSITION: Patient was discharged home. DISCHARGE MEDICATIONS: Refer to Discharge Medication List. DISCHARGE INSTRUCTIONS: Follow-up with Dr. Calvillo in a week. I have been assigned to complete a discharge summary on this account, I was not involved with the patient's management. Lucila Robledo NP Aug 13, 2018 10:23
--- NOTE | 2018-08-13 17:17 | Diagnostic Imaging Report ---
Indication: Abdominal pain Technique: Continuous helical transaxial imaging of the abdomen and pelvis was obtained from the lung bases to the pubic symphysis during intravenous contrast administration. Coronal 2-D reformats were also obtained. Study obtained in a Siemens sensation [address] Automatic Exposure Control was utilized. Total Dose length Product (DLP): 910.[address] Dose Index Volume (CTDIvol): 17.73 mGy Comparison: None Findings: Mild atelectasis at the lung bases and a small hiatal hernia are noted. There are multiple moderately distended loops of mostly fluid-filled small bowel throughout the abdomen. This is seen in the setting of a relatively decompressed terminal ileum and colon. Interestingly the stomach and proximal small bowel are also not significantly dilated. The findings on the last suspicious for mechanical small bowel obstruction. There is a small amount of free fluid within the pelvis. The urinary bladder is unremarkable. Small bilateral inguinal hernias containing fat demonstrated. Aortoiliac calcifications are moderate. There are multiple bilateral renal cysts. The gallbladder is unremarkable. The liver and spleen and pancreas are unremarkable. The appendix is normal. There is no free air. There is a small umbilical hernia containing fat. IMPRESSION: Suspicion of mechanical small bowel obstruction given multiple distended loops of small bowel with a relatively decompressed terminal ileum and colon. The transition is not visualized. Interestingly the proximal small bowel and stomach are not significantly dilated. No pneumatosis or free air. Mild free fluid in the pelvis. Normal appendix Atherosclerotic vascular disease. Bilateral renal cysts. Small bilateral inguinal hernias containing fat. Apparent hysterectomy. Small umbilical hernia containing fat. The CT scanner at [facility] is accredited by the [employer] and the scans are performed using dose optimization techniques as appropriate to a performed exam including Automatic Exposure control.
== END 2018-08-12 14:51 | disposition home or self-care (01) | DRG 390 ==
LOC: EMR 11:10 → 4E 13:35 → EDBEDREQ 14:29 → 4E 17:25
DX: K56.609 Unspecified intestinal obstruction, unspecified as to partial versus complete obstruction (principal); K21.9 Gastro-esophageal reflux disease without esophagitis; K29.70 Gastritis, unspecified, without bleeding; Z88.6 Allergy status to analgesic agent; Z91.011 Allergy to milk products; Z91.018 Allergy to other foods; K44.9 Diaphragmatic hernia without obstruction or gangrene; I10 Essential (primary) hypertension; M88.852 Osteitis deformans of left thigh; M47.896 Other spondylosis, lumbar region; K64.8 Other hemorrhoids; K22.2 Esophageal obstruction
CPT/HCPCS: 36415; 74177; 74250; 76700; 80053; 80061; 81003; 82150; 82248; 83690; 83735; 84100; 85007; 85025; 85651; 85730; 86140; 96361; 96374; 96375; 99284

== ENCOUNTER 2018-11-06 15:39 | Emergency (ER) | payer MEDICARE, MEDICAID ==
[~2018-11-06] VITALS: Ht 157.5 cm; Wt 68.0 kg
[~2018-11-06 15:39] MED LIST changes: +PROTONIX40 M2 ORAL
[2018-11-06 15:49] VITALS: BP 140/76
[2018-11-06] MEDS ORDERED: [UNRECOGNIZED DRUG - OTHER] ORAL (16:02)
[2018-11-06] MEDS ORDERED: CARAFATE1 G1 ORAL (16:02)
--- NOTE | 2018-11-06 16:25 | NUR ---
ED Nurse Note: Patient presents to ER due to persistent cough, sore throat for the past few days; reports no fever, chills or SOB at this time. Patient ambulating with steady gait. No facial grimacing or guarding noted. Provided mask.
[2018-11-06] MEDS ORDERED: Acetaminophen 500mg (ES) tab ORAL ONE (16:45)
--- NOTE | 2018-11-06 17:00 | Emergency Room Report ---
History of Present Illness General Chief Complaint: Upper Respiratory Illness Source: Medical Record Present Illness HPI 73-year-old female presents to the emergency department complaining of persistent cough x3 days with some mucus and 3/10 in severity sore throat. Patient also reports previous history of pneumonia in the past which required hospitalization. Still has a history of acid reflux and osteoarthritis. Patient denies recent travel or ill contacts she reports rhinorrhea nasal congestion she denies headaches denies neck pain or stiffness she denies lower extremity edema she denies chest pain, SOB, Dyspnea or palpitations. No relieving factors at this time. She reports subjective fevers and chills. She denies rashes. Denies hemoptysis Allergies: Coded Allergies: Broccoli (Verified Allergy, Unknown, 08/10/18) IBUPROFEN (Verified Allergy, Unknown, 08/10/18) LACTOSE (Verified Allergy, Unknown, 08/10/18) Lactose intolerant MILK (Verified Allergy, Unknown, 08/10/18) ONION (Verified Allergy, Unknown, 08/10/18) ORANGE JUICE (Verified Allergy, Unknown, 08/10/18) TOMATO (Verified Allergy, Unknown, 08/10/18) Patient History Past Medical History: see triage record Past Surgical History: none Pertinent Family History: none Reviewed Nursing Documentation: PMH: Agreed; PSxH: Agreed Nursing Documentation-PMH Past Medical History: No History, Except For Hx Cardiac Problems: Yes Hx Hypertension: Yes Hx Pacemaker: No Hx Asthma: No Hx COPD: No Hx Diabetes: No Hx Cancer: No Hx Gastrointestinal Problems: Yes - esophageal ring , gastric polyps, GERD Hx Dialysis: No History Of Psychiatric Problem: No Hx Neurological Problems: No Hx Cerebrovascular Accident: No Hx Seizures: No Review of Systems All Other Systems: negative except mentioned in HPI Physical Exam Vital Signs Date Time Temp Pulse Resp B/P (MAP) Pulse Ox O2 Delivery O2 Flow Rate FiO2 11/06/18 15:49 98.1 75 15 140/76 (97) 98 Room Air Sp02 EP Interpretation: reviewed, normal General Appearance: no apparent distress, alert, GCS 15, non-toxic Head: normocephalic, atraumatic Eyes: bilateral eye normal inspection, bilateral eye PERRL ENT: hearing grossly normal, normal voice, TMs + canals normal, uvula midline, moist mucus membranes, nasal congestion, pharyngeal erythema Neck: full range of motion, no meningismus, no bony tend Respiratory: chest non-tender, lungs clear, normal breath sounds, no respiratory distress, no accessory muscle use, speaking full sentences, other - mucus in the upper airways Cardiovascular #1: regular rate, rhythm, no edema Musculoskeletal: back normal, gait/station normal, normal range of motion, non- tender Neurologic: alert, oriented x3, responsive, motor strength/tone normal, sensory intact, speech normal, grossly normal Psychiatric: judgement/insight normal Skin: normal color, no rash, warm/dry, well hydrated Lymphatic: no adenopathy Medical Decision Making PA Attestation Dr. Alcocer is my supervising Physician whom patient management has been discussed with. Diagnostic Impression: Primary Impression: Atypical pneumonia ER Course 73-year-old female presents to the emergency department complaining of persistent cough x3 days with some mucus and 3/10 in severity sore throat. Patient also reports previous history of pneumonia in the past which required hospitalization. Still has a history of acid reflux and osteoarthritis. Patient denies recent travel or ill contacts she reports rhinorrhea nasal congestion she denies headaches denies neck pain or stiffness she denies lower extremity edema she denies chest pain, SOB, Dyspnea or palpitations. No relieving factors at this time. She reports subjective fevers and chills. She denies rashes. Denies hemoptysis Ddx considered but are not limited to URI, pneumonia, PE, strep pharyngitis, meningitis. Vital signs: Pt.is afebrile VS are WNL H&PE are most consistent with atypical PNA - Pt. Non-toxic in appearance, NAD, complicated medical hx. ORDERS: none required at this time, the diagnosis is clinical ED INTERVENTIONS: -Tylenol PO DISCHARGE: At this time pt. is stable for d/c to home. Will provide printed patient care instructions, and any necessary prescriptions. Care plan and follow up instructions have been discussed with the patient prior to discharge. Last Vital Signs Date Time Temp Pulse Resp B/P (MAP) Pulse Ox O2 Delivery O2 Flow Rate FiO2 11/06/18 15:50 75 15 Room Air 11/06/18 15:49 98.1 140/76 98 Disposition: HOME, SELF-CARE Condition: Stable Scripts Guaifenesin (Mucinex) 1,200 Mg Tab.er.12h 1200 MG PO Q12HR for 7 Days, #14 TAB Prov: Lise Manuel 11/06/18 Codeine/Promethazine Hcl* (PROMETHAZINE-CODEINE SYRUP*) 118 Ml Syrup 5 ML ORAL Q6H PRN for For Cough, #120 ML 0 Refills Prov: Lise Manuel 11/06/18 Azithromycin* (ZITHROMAX*) 250 Mg Tablet 250 MG ORAL DAILY, #6 TAB 0 Refills Take two tables once daily for 1 day, then one tablet once daily for 4 days. Prov: Lise Manuel 11/06/18 Patient Instructions: Upper Respiratory Infection, Adult Additional Instructions: Take medications as directed. Follow up with a Primary Care Provider in 3-5 days, even if your symptoms have resolved. --Please review list of primary care clinics, if you do not already have a primary care provider Return sooner to ED if new symptoms occur, or current symptoms become worse. Do not drink alcohol, drive, or operate heavy machinery while taking Cough Syrup as this may cause drowsiness. - Please note that this Emergency Department Report was dictated using UT[employer] inspector technology software, occasionally this can lead to erroneous entry secondary to interpretation by the dictation equipment. Lise Manuel Nov 06, 2018 17:00
[2018-11-06] MEDS ORDERED: PROMETHAZINE-C118 M1 ORAL (17:06)
[2018-11-06] MEDS ORDERED: ZITHROMAX250 MG ORAL (17:06)
[2018-11-06] MEDS ORDERED: MUCINEX1200 MG PO (17:06)
[2018-11-06 17:15] VITALS: BP 140/76
--- NOTE | 2018-11-06 17:16 | NUR ---
ER DISCHARGE NOTE: Patient is cleared to be discharged per TEJINDER GARCIA, pt is aox4, on room air, with stable vital signs. pt was given dc and prescription instructions, pt was able to verbalize understanding, pt id band removed without complications. pt is able to ambulate with steady gait. pt took all belongings.
== END 2018-11-06 17:15 | disposition home or self-care (01) ==
LOC: EMR 16:30
DX: J18.9 Pneumonia, unspecified organism (principal); M19.90 Unspecified osteoarthritis, unspecified site; K21.9 Gastro-esophageal reflux disease without esophagitis; I10 Essential (primary) hypertension; Z88.6 Allergy status to analgesic agent; Z91.018 Allergy to other foods
CPT/HCPCS: 99282

== ENCOUNTER 2018-12-06 06:52 | Inpatient (IN) | payer MEDICARE, MEDICAID ==
[~2018-12-06] VITALS: Ht 157.5 cm; Wt 86.2 kg
[~2018-12-06 06:52] MED LIST changes: +MUCINEX1200 MG PO; +ZITHROMAX250 MG ORAL; +[UNRECOGNIZED DRUG - OTHER] ORAL
--- NOTE | 2018-12-06 07:07 | NUR ---
ED Nurse Note: PT FROM HOME CAME IN DUE TO LOWER ABD PAIN WITH NAUSEA X 4 HOURS PRIOR ED ARRIVAL. HX OF GASTRIC COMPLAINTS. HAS AN APPOINTMENT WITH DR MILO HODGSON BUT UNABLE TO BEAR THE PAIN AT THIS TIME. AAO X4, AMBULATORY WITH NON LABORED BREATHING. VSS.
[2018-12-06] MEDS ORDERED: Lidocaine 2% Visc 15ml soln ORAL ONE (07:15)
[2018-12-06] MEDS ORDERED: Mylanta II UD 30ml ORAL ONE (07:15)
[2018-12-06] MEDS ORDERED: Morphine Sulfate 4mg/ml Inj (IV USE ONLY) IVP ONE (07:30)
--- NOTE | 2018-12-06 07:31 | Emergency Room Report ---
History of Present Illness General Chief Complaint: Abdominal Pain Source: Patient Present Illness HPI 73-year-old female history of hypertension hyperlipidemia, CAD presents with 3 hours pt, she describes the pain as a gastric attack glides to her upper abdomen and mid chest, she states the pain comes well, no aggravating factors, alleviated with morphine, she does endorse nausea, no vomiting, no diarrhea, she does endorse chest pressure as well, not aggravated with exertion, not alleviated with rest, she states all related to her gastric attack. No fever chills. Allergies: Coded Allergies: Broccoli (Verified Allergy, Unknown, 08/10/18) IBUPROFEN (Verified Allergy, Unknown, 08/10/18) LACTOSE (Verified Allergy, Unknown, 08/10/18) Lactose intolerant MILK (Verified Allergy, Unknown, 08/10/18) ONION (Verified Allergy, Unknown, 08/10/18) ORANGE JUICE (Verified Allergy, Unknown, 08/10/18) TOMATO (Verified Allergy, Unknown, 08/10/18) Patient History Past Medical History: see triage record Last Menstrual Period: NA Now: No : 1 Para: 1 Reviewed Nursing Documentation: PMH: Agreed; PSxH: Agreed Nursing Documentation-PMH Hx Cardiac Problems: Yes - tachycardia Hx Hypertension: No Hx Pacemaker: No Hx Asthma: No Hx COPD: No Hx Diabetes: No Hx Cancer: No Hx Gastrointestinal Problems: Yes Hx Dialysis: No History Of Psychiatric Problem: No Hx Neurological Problems: No Hx Cerebrovascular Accident: No Hx Seizures: No Review of Systems Respiratory: Denies: shortness of breath Cardiovascular: Reports: chest pain Gastrointestinal: Reports: abdominal pain, nausea; Denies: diarrhea, vomiting Neurological: Reports: headache All Other Systems: negative except mentioned in HPI Physical Exam Vital Signs Date Time Temp Pulse Resp B/P (MAP) Pulse Ox O2 Delivery O2 Flow Rate FiO2 12/06/18 06:57 97.3 89 18 136/84 (101) 95 Room Air Sp02 EP Interpretation: reviewed, normal General Appearance: well appearing, no apparent distress, alert Head: normocephalic, atraumatic Eyes: bilateral eye PERRL, bilateral eye EOMI ENT: uvula midline, moist mucus membranes Neck: supple, thyroid normal, supple/symm/no masses Respiratory: lungs clear, no respiratory distress, no retraction, no accessory muscle use Cardiovascular #1: normal peripheral pulses, regular rate, rhythm, no edema, no gallop, no murmur Gastrointestinal: non tender, soft, no guarding, no rebound Musculoskeletal: normal inspection Neurologic: alert, oriented x3 Psychiatric: mood/affect normal Skin: no rash, warm/dry Medical Decision Making ER Course Patient presents with chest pain, history of allergy to ibuprofen, states she can tolerate aspirin, will give patient GI cocktail, pain is improving, patient will be admitted for ACS rule out, Patient medically complex requiring labs, x-ray, EKG, x-ray negative, EKG negative, first troponin negative. Patient admitted to Dr. Calvillo Laboratory Tests Test 12/06/18 07:20 12/06/18 07:25 Urine Color Pale yellow Urine Appearance Clear Urine pH 5 (4.5-8.0) Urine Specific [place]ade 1.010 (1.005-1.035) Urine Protein Negative (NEGATIVE) Urine Glucose (UA) Negative (NEGATIVE) Urine Ketones Negative (NEGATIVE) Urine Blood Negative (NEGATIVE) Urine Nitrite Negative (NEGATIVE) Urine Bilirubin Negative (NEGATIVE) Urine Urobilinogen Normal MG/DL (0.0-1.0) Urine Leukocyte Esterase Negative (NEGATIVE) White Blood Count 4.7 K/UL (4.8-10.8) L Red Blood Count 4.75 M/UL (4.20-5.40) Hemoglobin 12.6 G/DL (12.0-16.0) Hematocrit 40.1 % (37.0-47.0) Mean Corpuscular Volume 85 FL (80-99) Mean Corpuscular Hemoglobin 26.5 PG (27.0-31.0) L Mean Corpuscular Hemoglobin Concent 31.4 G/DL (32.0-36.0) L Red Cell Distribution Width 13.7 % (11.6-14.8) Platelet Count 232 K/UL (150-450) Mean Platelet Volume 7.5 FL (6.5-10.1) Neutrophils (%) (Auto) 66.8 % (45.0-75.0) Lymphocytes (%) (Auto) 21.2 % (20.0-45.0) Monocytes (%) (Auto) 8.1 % (1.0-10.0) Eosinophils (%) (Auto) 2.5 % (0.0-3.0) Basophils (%) (Auto) 1.3 % (0.0-2.0) Prothrombin Time 10.2 SEC (9.30-11.50) Prothrombin Time INR 1.0 (0.9-1.1) PTT 25 SEC (23-33) Sodium Level 138 MMOL/L (136-145) Potassium Level 4.3 MMOL/L (3.5-5.1) Chloride Level 103 MMOL/L (98-107) Carbon Dioxide Level 26 MMOL/L (21-32) Anion Gap 9 mmol/L (5-15) Blood Urea Nitrogen 13 mg/dL (7-18) Creatinine 0.8 MG/DL (0.55-1.30) Estimate Glomerular Filtration Rate mL/min (>60) Glucose Level 95 MG/DL (74-106) Calcium Level 9.6 MG/DL (8.5-10.1) Total Bilirubin 0.6 MG/DL (0.2-1.0) Aspartate Amino Transferase (AST) 17 U/L (15-37) Alanine Aminotransferase (ALT) 15 U/L (12-78) Alkaline Phosphatase 138 U/L (46-116) H Total Creatine Kinase 121 U/L (26-308) Creatine Kinase MB 1.3 NG/ML (0.0-3.6) Creatine Kinase MB Relative Index 1.0 Troponin I 0.000 ng/mL (0.000-0.056) Pro-B-Type Natriuretic Peptide 43 pg/mL (0-125) Total Protein 7.6 G/DL (6.4-8.2) Albumin 3.6 G/DL (3.4-5.0) Globulin 4.0 g/dL Albumin/Globulin Ratio 0.9 (1.0-2.7) L Lipase 170 U/L (73-393) EKG Diagnostic Results EKG Time: 07:26 EP Interpretation: NSR, rate 84, QTc 449, no acute ST elevations, normal axis Rate: normal Rhythm: NSR ST Segments: no acute changes ASA given to the pt in ED: No Rhythm Strip Diag. Results Rhythm Strip Time: 07:29 EP Interpretation: yes Rate: 85 Rhythm: NSR, no PVC's, no ectopy Chest X-Ray Diagnostic Results Chest X-Ray Diagnostic Results : Chest X-Ray Ordered: Yes # of Views/Limited/Complete: 1 View Indication: Chest Pain EP Interpretation: Yes Interpretation: no consolidation, no effusion, no pneumothorax, no acute cardiopulmonary disease Impression: No acute disease Electronically Signed by: Lux Torres MD Last Vital Signs Date Time Temp Pulse Resp B/P (MAP) Pulse Ox O2 Delivery O2 Flow Rate FiO2 12/06/18 07:07 79 15 Room Air 12/06/18 06:57 97.3 136/84 (101) 95 Disposition: ADMITTED INPATIENT Condition: Stable Lux Torres M.D. Dec 06, 2018 07:31
--- NOTE | 2018-12-06 07:35 | NUR ---
ED Nurse Note: COLLECTED BLOOD/URINE THEN SENT.
[2018-12-06 07:43] VITALS: BP 96/47
[2018-12-06 07:51] LABS: APPEARANCE,URINE CLEAR; BILIRUBIN, URINE NEGATIVE (NEGATIVE); COLOR,URINE PALE YELLOW; GLUCOSE, URINE (UA) NEGATIVE (NEGATIVE); KETONES,URINE NEGATIVE (NEGATIVE); LEUKOCYTE ESTERASE ,URINE NEGATIVE (NEGATIVE); NITRITE,URINE NEGATIVE (NEGATIVE); PH,URINE 5 (4.5-8.0); PROTEIN,URINE NEGATIVE (NEGATIVE); UROBILINOGEN,URINE NORMAL MG/DL (0.0-1.0)
[2018-12-06 07:51] LABS: BASOPHILS % (AUTO) 1.3 % (0.0-2.0); EOSINOPHILS % (AUTO) 2.5 % (0.0-3.0); HEMATOCRIT 40.1 % (37.0-47.0); HEMOGLOBIN 12.6 G/DL (12.0-16.0); LYMPHOCYTES % (AUTO) 21.2 % (20.0-45.0); MEAN CORPUSCULAR VOLUME 85 FL (80-99); MONOCYTES % (AUTO) 8.1 % (1.0-10.0); NEUTROPHILS % (AUTO) 66.8 % (45.0-75.0); PLATELET COUNT 232 K/UL (150-450); RED BLOOD COUNT 4.75 M/UL (4.20-5.40); RED CELL DISTRIBUTION WIDTH 13.7 % (11.6-14.8); WHITE BLOOD COUNT 4.7 K/UL (4.8-10.8)
[2018-12-06 08:00] LABS: ANION GAP 9 mmol/L (5-15); BLOOD UREA NITROGEN 13 mg/dL (7-18); CALCIUM 9.6 MG/DL (8.5-10.1); CARBON DIOXIDE 26 MMOL/L (21-32); CHLORIDE 103 MMOL/L (98-107); CREATININE 0.8 MG/DL (0.55-1.30); POTASSIUM 4.3 MMOL/L (3.5-5.1); SODIUM 138 MMOL/L (136-145)
[2018-12-06 08:15] LABS: ALANINE AMINOTRANSFERASE 15 U/L (12-78); ALBUMIN 3.6 G/DL (3.4-5.0); ALBUMIN/GLOBULIN RATIO 0.9 (1.0-2.7); ALKALINE PHOSPHATASE 138 U/L (46-116); ASPARTATE AMINO TRANSFERASE 17 U/L (15-37); BILIRUBIN,TOTAL 0.6 MG/DL (0.2-1.0); CKMB 1.3 NG/ML (0.0-3.6); CREATINE KINASE 121 U/L (26-308)
--- NOTE | 2018-12-06 08:39 | NUR ---
ED Nurse Note: Belongings list done. $100 luque on wallet. Pt refused to open wheeled suitcase.
--- NOTE | 2018-12-06 08:51 | NUR ---
ED Nurse Note: TRIED TO CALL FOR REPORT. RECEIVING RN HEI NOT AVAILABLE AT THIS TIME. WILL CALL AGAIN LATER.
--- NOTE | 2018-12-06 09:09 | NUR ---
ED Nurse Note: REPORT GIVEN TO TAMMY GEORGE OF TELEMETRY UNIT.
[2018-12-06 09:10] VITALS: BP 95/56
--- NOTE | 2018-12-06 09:13 | NUR ---
ED Nurse Note: PT TRANSFERRED TO TELEMETRY UNIT WITH RN AND RIPRAP WORKER AND VSS. ENDORSED PT TO TAMMY GEORGE
--- NOTE | 2018-12-06 09:30 | NUR ---
NURSE NOTES: Received report from ARIEL You. Patient transferred from ED to tele. naval inspector on, Patient AOx4, on room air, no active s/s cardiac, respiratory distress noticed at this time. SR with HR 81 at this time, stated abd pain and chest pain went down to 2/10. VS at the time of arrival T 97.4, HR 68, RR 17, O2 sat 99%, BP 141/73. IV on left hand 22G, asymptomatic, patent, intact. Belonging list checked with RN. Patient wearing partial, upper dentures, bilateral hearing aids, home medication brought to pharmacy. Patient refused to check wheeled suitcase. Bed in lowest position, side rails upx3, call light within reach. Will continue to monitor.
--- NOTE | 2018-12-06 10:37 | NUR ---
NURSE NOTES: Paged Dr. Calvillo for admission order, awaiting for callback. Will continue to monitor.
--- NOTE | 2018-12-06 10:55 | Diagnostic Imaging Report ---
Indication: Chest pain Comparison: 05/20/2018 A single view chest radiograph was obtained. Findings: No definite infiltrate or pulmonary vascular congestion identified. The heart is enlarged. The aorta is mildly enlarged consistent with atherosclerotic vascular disease. The bones are osteopenic. Impression: No acute disease
--- NOTE | 2018-12-06 12:30 | NUR ---
NURSE NOTES: Paged Dr. Calvillo for admission order second time. Awaiting for callback, will continue to monitor.
--- NOTE | 2018-12-06 13:15 | NUR ---
NURSE NOTES: Paged VIOLA Ferreira regarding admission order, diet, code order. Per VIOLA Ferreira, cardiac diet. Order noted, entered, carried out. Will continue to monitor.
--- NOTE | 2018-12-06 14:05 | NUR ---
NURSE NOTES: Dr. Brooks at the nursing station, made aware of need of admission orders. No order given at this time. Will continue to monitor.
[2018-12-06] MEDS ORDERED: Miralax 17gm pkt ORAL PRN (14:30)
[2018-12-06] MEDS ORDERED: Milk of Magnesia 30ml Ud ORAL PRN (14:30)
[2018-12-06] MEDS ORDERED: Mylanta II UD 30ml ORAL PRN (14:30)
--- NOTE | 2018-12-06 14:30 | History & Physical ---
History and Physical History & Physicial Dictated for Int Med-Dr Calvillo no. [id number]. Angus Brooks MD Dec 06, 2018 14:30
[2018-12-06] MEDS: Sucralfate 1gm tab ORAL SCH ×2 (14:58→17:01)
--- NOTE | 2018-12-06 17:45 | History and Physical Report ---
DATE OF ADMISSION: 12/06/2018 CHIEF COMPLAINT: The patient is a 73-year-old female, who presents with chief complaint of abdominal pain and constipation. HISTORY OF PRESENT ILLNESS: It began this morning about 3 a.m. The patient began to experience burning in her epigastric region. The patient also complains of constipation. The patient states she then became dizzy. The patient presented to [place] emergency room. The patient was admitted for abdominal pain to rule out acute gastritis. REVIEW OF SYSTEMS: CONSTITUTIONAL: The patient denies weight loss or weight gain. The patient denies fevers or chills. HEENT: The patient denies ear or throat pain. The patient denies headache. CARDIOVASCULAR: The patient denies palpitations or chest pain. CHEST: The patient denies wheeze or shortness of breath. ABDOMEN: The patient complains of epigastric pain as above. The patient complains of constipation. The patient denies diarrhea, nausea, or vomiting. GENITOURINARY: The patient denies dysuria or increased frequency of urination. NEUROMUSCULAR: The patient denies seizures or generalized weakness. PAST MEDICAL HISTORY: Significant for: 1. Gastritis. 2. Gastroesophageal reflux disease. 3. Hiatal hernia. 4. Hypertension. 5. Paget's disease of left femur. 6. Osteoarthritis of the spine. PAST SURGICAL HISTORY: Significant for exploratory laparotomy for tubo-ovarian abscess in 1972. CURRENT MEDICATIONS: 1. Protonix 40 mg p.o. daily. 2. Carafate 1 g p.o. three times daily. 3. Mylicon 80 mg p.o. three times daily. ALLERGIES: Ibuprofen. SOCIAL HISTORY: The patient is single and lives alone. The patient denies tobacco or alcohol use. PHYSICAL EXAMINATION: VITAL SIGNS: Temperature 98, respirations 14, pulse 67, and blood pressure 95/56. GENERAL: The patient is a well-developed and well-nourished female, in no apparent distress. HEENT: Eyes, pupils are equal and responsive to light and accommodation. Extraocular movements are intact. NECK: Supple without lymphadenopathy. CHEST: Lungs are clear to auscultation bilaterally without wheezes or rales. CARDIOVASCULAR: Regular rhythm and rate. S1-S2 are normal without murmurs, rubs, or gallops. ABDOMEN: Soft, nontender, and nondistended. Positive bowel sounds. No evidence of hepatosplenomegaly. Currently, no rebound or guarding noted. EXTREMITIES: Negative for clubbing, cyanosis, or edema. RECTAL/GENITAL: Refused. NEUROLOGIC: Cranial nerves II through XII are grossly intact without focal deficits. Motor strength is 5/5 bilaterally. Deep tendon reflexes are 2+ plantar. LABORATORY STUDIES: WBC 4.7, hemoglobin 12.6, hematocrit 40.1, and platelets 232,000. Sodium 138, potassium 4.3, chloride 103, CO2 26, BUN 13, and creatinine 0.8. Glucose 95. Troponin 0.0. Alkaline phosphatase elevated at 138. Chest x-ray was reported as no acute disease. ASSESSMENT: This is a 73-year-old female with: 1. Epigastric pain. 2. Gastritis. 3. Gastroesophageal reflux disease. 4. History of hiatal hernia. 5. Hypertension. 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 7. Osteoarthritis of lumbar spine. TREATMENT: 1. Epigastric pain/gastritis. Continue Protonix as above. A Gastroenterology consultation has been obtained with Dr. Patrick Zheng. The patient was admitted to [facility] in July of 2018. The patient is status post endoscopy and colonoscopy during that time. We will follow recommendations of Gastroenterology. 2. Hypertension. The patient is currently hypotensive. 3. Paget's disease of left femur. 4. Osteoarthritis of the lumbar spine. Angus Brooks M.D. DR: DEIDRA JOB#: [id number] CC:
--- NOTE | 2018-12-06 19:13 | NUR ---
HAND-OFF: Report given to ARIEL Holloway.
--- NOTE | 2018-12-06 19:30 | NUR ---
NURSE NOTES: RECEIVED PATIENT RESTING IN BED, NO COMPLAINTS OF CHEST PAIN AT THIS TIME. FALL PRECAUTIONS IN PLACE: CALL LIGHT AND BEDSIDE TABLE WITHIN REACH, BED IN LOW POSITION AND BED ALARM ON. PLAN OF CARE REVIEWED.
[2018-12-06 20:00] VITALS: BP 128/60
[2018-12-06] MEDS: Docusate 100mg cap ORAL SCH (21:00)
[2018-12-07] VITALS: BP 131/58
[2018-12-07 04:00] VITALS: BP 126/62
[2018-12-07 07:00] LABS: ANION GAP 5 mmol/L (5-15); BLOOD UREA NITROGEN 16 mg/dL (7-18); CALCIUM 9.4 MG/DL (8.5-10.1); CARBON DIOXIDE 30 MMOL/L (21-32); CHLORIDE 102 MMOL/L (98-107); CHOLESTEROL 222 MG/DL (< 200); CREATININE 0.8 MG/DL (0.55-1.30); HDL CHOLESTEROL 85 MG/DL (40-60); POTASSIUM 4.5 MMOL/L (3.5-5.1); SODIUM 137 MMOL/L (136-145); TRIGLYCERIDES 88 MG/DL (30-150)
--- NOTE | 2018-12-07 07:10 | NUR ---
HAND-OFF: Report given to Mulugeta MERAZ RN. PATIENT RESTING IN BED, NO SIGNS OF DISTRESS NOTED.
--- NOTE | 2018-12-07 07:41 | NUR ---
NURSE NOTES: Received report from Colin Holloway. Patient awake and alert. No c/o pain or discomfort. Will monitor.
[2018-12-07 08:00] VITALS: BP 101/54
[2018-12-07] MEDS: Sucralfate 1gm tab ORAL SCH ×3 (08:50→17:24)
[2018-12-07] MEDS: Docusate 100mg cap ORAL SCH (08:50)
[2018-12-07 12:00] VITALS: BP 110/62
--- NOTE | 2018-12-07 12:35 | Consultation ---
History of Present Illness General Date patient seen: Dec 07, 2018 Chief Complaint: Abdominal Pain Present Illness HPI 73 year old female with hx of of OBO, gastritis, hiatal hernia, pancreatitis, chronic constipation, CAD, HTN, presented to ER with CC of abdominal pain. She states she had upper abdominal pain and constipation for the past 3 days. She denies chest pain or shortness of breath. she was diagnosed to have partial SBO and admitted for further management. She stated that she had only very small amount of stool when she moved her bowel prior day. Allergies: Coded Allergies: Broccoli (Verified Allergy, Unknown, 08/10/18) IBUPROFEN (Verified Allergy, Unknown, 08/10/18) LACTOSE (Verified Allergy, Unknown, 08/10/18) Lactose intolerant MILK (Verified Allergy, Unknown, 08/10/18) ONION (Verified Allergy, Unknown, 08/10/18) ORANGE JUICE (Verified Allergy, Unknown, 08/10/18) TOMATO (Verified Allergy, Unknown, 08/10/18) Medication History Scheduled Azithromycin* (Zithromax*), 250 MG ORAL DAILY Guaifenesin (Mucinex), 1,200 MG PO Q12HR Pantoprazole Sodium (Protonix), 40 MG ORAL DAILY Sucralfate* (Carafate*), 1 GM ORAL TID, (Reported) Scheduled PRN Codeine/Promethazine Hcl* (Promethazine-Codeine Syrup*), 5 ML ORAL Q6H PRN for For Cough [Mytab Gas], 80 MG ORAL TID PRN for Abdominal cramps, (Reported) Patient History Healthcare decision maker Olinda Lombardillor , Daughter Resuscitation status Full Code Advanced Directive on File Yes Past Medical/Surgical History Past Medical/Surgical History: (1) Pancreatitis (2) Gastritis (3) HTN (hypertension) (4) Anxiety disorder (5) Chronic epigastric pain (6) SBO (small bowel obstruction) Review of Systems Constitutional: Reports: no symptoms Eye: Reports: no symptoms All Other Systems: negative except mentioned in HPI Physical Exam General Appearance: WD/WN, no apparent distress Lines, tubes and drains: peripheral, central line HEENT: normocephalic, atraumatic Neck: non-tender, normal alignment Respiratory/Chest: lungs clear Breasts: no masses Cardiovascular/Chest: regularly irregular Abdomen: normal bowel sounds Last 24 Hour Vital Signs Date Time Temp Pulse Resp B/P (MAP) Pulse Ox O2 Delivery O2 Flow Rate FiO2 12/07/18 09:00 Room Air 12/07/18 08:00 97.6 75 18 101/54 (70) 99 12/07/18 08:00 76 12/07/18 04:00 65 12/07/18 04:00 98.1 69 18 126/62 (83) 97 12/07/18 00:00 97.9 66 17 131/58 (82) 96 12/07/18 00:00 66 12/06/18 21:00 Room Air 12/06/18 20:00 75 12/06/18 20:00 98.0 70 17 128/60 (82) 96 12/06/18 16:00 88 Intake and Output 12/06/18 12/07/18 19:00 07:00 Intake Total 200 ml 120 ml Balance 200 ml 120 ml Intake Oral 200 ml 120 ml # Voids 3 3 # Bowel Movements 1 Laboratory Tests Test 12/07/18 06:05 Sodium Level 137 MMOL/L (136-145) Potassium Level 4.5 MMOL/L (3.5-5.1) Chloride Level 102 MMOL/L (98-107) Carbon Dioxide Level 30 MMOL/L (21-32) Anion Gap 5 mmol/L (5-15) Blood Urea Nitrogen 16 mg/dL (7-18) Creatinine 0.8 MG/DL (0.55-1.30) Estimat Glomerular Filtration Rate mL/min (>60) Glucose Level 91 MG/DL (74-106) Calcium Level 9.4 MG/DL (8.5-10.1) Triglycerides Level 88 MG/DL (30-150) Cholesterol Level 222 MG/DL (< 200) H LDL Cholesterol 115 mg/dL (<100) H HDL Cholesterol 85 MG/DL (40-60) H Cholesterol/HDL Ratio 2.6 (3.3-4.4) L Thyroid Stimulating Hormone (TSH) 1.145 uiU/mL (0.358-3.740) Height (Feet): 5 Height (Inches): 2.00 Weight (Pounds): 190 Medications Current Medications Medications (Trade) Dose Ordered Sig/Radha Route PRN Reason Start Time Stop Time Status Last Admin Dose Admin Acetaminophen (Tylenol) 650 mg Q4H PRN ORAL Mild Pain (Pain Scale 1-3) 12/06/18 14:30 01/05/19 14:29 Acetaminophen (Tylenol) 650 mg Q4H PRN ORAL fever 12/06/18 14:30 01/05/19 14:29 Al Hydroxide/Mg Hydroxide (Mylanta II) 30 ml Q6H PRN ORAL dyspepsia 12/06/18 14:30 01/05/19 14:29 Bisacodyl (Dulcolax) 10 mg DAILYPRN PRN RECTAL Constipation 12/06/18 14:45 01/05/19 14:29 Dextrose (Dextrose 50%) 25 ml Q30M PRN IV Hypoglycemia 12/06/18 14:30 01/05/19 14:29 Dextrose (Dextrose 50%) 50 ml Q30M PRN IV Hypoglycemia 12/06/18 14:30 01/05/19 14:29 Docusate Sodium (Colace) 100 mg EVERY 12 HOURS ORAL 12/06/18 21:00 01/05/19 20:59 12/07/18 08:50 Magnesium Hydroxide (Mom) 30 ml HSPRN PRN ORAL Constipation 12/06/18 14:30 01/05/19 14:29 Pantoprazole (Protonix) 40 mg DAILY ORAL 12/06/18 14:30 01/05/19 14:29 12/07/18 08:50 Polyethylene Glycol (Miralax) 17 gm DAILYPRN PRN ORAL Constipation 12/06/18 14:30 01/05/19 14:29 Sucralfate (Carafate) 1 gm TID ORAL 12/06/18 14:30 01/05/19 14:29 12/07/18 08:50 Temazepam (Restoril) 15 mg DAILYPRN PRN ORAL Insomnia 12/06/18 14:30 12/13/18 14:29 Assessment/Plan Problem List: (1) PUD (peptic ulcer disease) ICD Codes: K27.9 - Peptic ulcer, site unspecified, unspecified as acute or chronic, without hemorrhage or perforation SNOMED: 24034495 (2) Partial small bowel obstruction ICD Codes: K56.69 - Other intestinal obstruction SNOMED: 284823415, 471635756 (3) HTN (hypertension) ICD Codes: I10 - Essential (primary) hypertension SNOMED: 61864806 Assessment/Plan: symptomatic treatment GI evaluation laxatives carafate check electrolytes. dvt prophylaxis Chano Ling MD Dec 07, 2018 12:35
--- NOTE | 2018-12-07 13:55 | NUR ---
NURSE NOTES: Received order from Dr. Ling to transfer patient to [facility] floor. Initiated. awaiting available bed. will follow.
--- NOTE | 2018-12-07 14:18 | GI Initial Consult Note ---
History of Present Illness General Date patient seen: Dec 07, 2018 Time patient seen: 14:17 Reason for Hospitalization: Abdominal Pain Referring physician: DESTINEY PEDRAZA Reason for Consultation: ABDOMINAL PAIN Present Illness HPI 73-year-old female history of hypertension hyperlipidemia, CAD presents with 3 hours pt, she describes the pain as a gastric attack glides to her upper abdomen and mid chest, she states the pain comes well, no aggravating factors, alleviated with morphine, she does endorse nausea, no vomiting, no diarrhea, she does endorse chest pressure as well, not aggravated with exertion, not alleviated with rest, she states all related to her gastric attack. No fever chills. GI consulted for abdominal pain. Patient is known to us from prior admissions. The patient suffers from chronic GERD, has been on multiple antacids to help relieve her pain. Patient seen, awake alert and oriented x4 no apparent distress. The abdomen is soft, nontender, nondistended. Patient states that she is having small bowel movements. Has current complaint of abdominal pain. Had recent EGD/colonoscopy as summarized below. SUMMARY OF FINDINGS: 1. A 3-cm hiatal hernia. 2. Distal esophageal ring. 3. GE junction was found at about 30 cm from the incisors, so short esophagus. 4. Multiple gastric polyps, most probably fundic gland polyps. 5. Gastritis, status post biopsy. 6. Fair colonic prep without any obvious findings. 7. Internal hemorrhoids. Home Meds Active Scripts Guaifenesin (Mucinex) 1,200 Mg Tab.er.12h, 1200 MG PO Q12HR for 7 Days, #14 TAB Prov:Lise Manuel 11/06/18 Codeine/Promethazine Hcl* (PROMETHAZINE-CODEINE SYRUP*) 118 Ml Syrup, 5 ML ORAL Q6H PRN for For Cough, #120 ML 0 Refills Prov:Lise Manuel 11/06/18 Azithromycin* (ZITHROMAX*) 250 Mg Tablet, 250 MG ORAL DAILY, #6 TAB 0 Refills Take two tables once daily for 1 day, then one tablet once daily for 4 days. Prov:Lise Manuel 11/06/18 Pantoprazole Sodium (Protonix) 40 Mg , 40 MG ORAL DAILY for 30 Days, PKT Prov:Chano Ling MD 08/12/18 Reported Medications [Mytab Gas] No Conflict Check, 80 MG ORAL TID PRN for Abdominal cramps 11/06/18 Sucralfate* (CARAFATE*) 1 Gm Tablet, 1 GM ORAL TID, TAB 11/06/18 Med list reviewed/reconciled: Yes Allergies: Coded Allergies: Broccoli (Verified Allergy, Unknown, 08/10/18) IBUPROFEN (Verified Allergy, Unknown, 08/10/18) LACTOSE (Verified Allergy, Unknown, 08/10/18) Lactose intolerant MILK (Verified Allergy, Unknown, 08/10/18) ONION (Verified Allergy, Unknown, 08/10/18) ORANGE JUICE (Verified Allergy, Unknown, 08/10/18) TOMATO (Verified Allergy, Unknown, 08/10/18) Patient History History Provided By: Patient, Medical Record PMH Narrative PMH Narrative Past Medical History: see triage record, old chart reviewed, HTN, GERD, other - Gastritis, Hiatal hernia, short esophagus, nerve deafness, cataracts Past Surgical History: hysterectomy Social History: Denies: smoking, alcohol use, drug use Last Menstrual Period: MENOPAUSE Reviewed Nursing Documentation: PMH: Agreed; PSxH: Agreed Nursing Documentation-PMH Past Medical History: No History, Except For Hx Cardiac Problems: Yes Hx Hypertension: Yes Hx Pacemaker: No Hx Asthma: No Hx COPD: No Hx Diabetes: No Hx Cancer: No Hx Gastrointestinal Problems: Yes - esophageal ring , gastric polyps Hx Dialysis: No Hx Neurological Problems: No Hx Cerebrovascular Accident: No Hx Seizures: No Social History: Denies: smoking, alcohol use, drug use, other Social History: Denies: smoking, alcohol use, drug use, other Review of Systems All Other Systems: negative except mentioned in HPI Physical Exam Vital Signs Date Time Temp Pulse Resp B/P (MAP) Pulse Ox O2 Delivery O2 Flow Rate FiO2 12/06/18 06:57 97.3 89 18 136/84 (101) 95 Room Air Sp02 EP Interpretation: reviewed, normal Labs Laboratory Tests Test 12/07/18 06:05 Sodium Level 137 MMOL/L (136-145) Potassium Level 4.5 MMOL/L (3.5-5.1) Chloride Level 102 MMOL/L (98-107) Carbon Dioxide Level 30 MMOL/L (21-32) Anion Gap 5 mmol/L (5-15) Blood Urea Nitrogen 16 mg/dL (7-18) Creatinine 0.8 MG/DL (0.55-1.30) Estimat Glomerular Filtration Rate mL/min (>60) Glucose Level 91 MG/DL (74-106) Calcium Level 9.4 MG/DL (8.5-10.1) Triglycerides Level 88 MG/DL (30-150) Cholesterol Level 222 MG/DL (< 200) H LDL Cholesterol 115 mg/dL (<100) H HDL Cholesterol 85 MG/DL (40-60) H Cholesterol/HDL Ratio 2.6 (3.3-4.4) L Thyroid Stimulating Hormone (TSH) 1.145 uiU/mL (0.358-3.740) General Appearance: well appearing, no apparent distress, alert Head: normocephalic EENT: PERRL/EOMI, normal ENT inspection Neck: supple Respiratory: normal breath sounds, no respiratory distress Cardiovascular: normal rate Gastrointestinal: normal inspection, non tender, soft, normal bowel sounds, non -distended Rectal: deferred Genitourinary: no CVA tenderness Musculoskeletal: normal inspection, back normal Neurologic: normal inspection, alert, oriented x3, responsive Psychiatric: normal inspection, judgement/insight normal, memory normal Skin: normal inspection, normal color, no rash, warm/dry, palpation normal, well hydrated Lymphatic: normal inspection, no adenopathy Current Medications Current Medications Medications (Trade) Dose Ordered Sig/Radha Route PRN Reason Start Time Stop Time Status Last Admin Dose Admin Acetaminophen (Tylenol) 650 mg Q4H PRN ORAL Mild Pain (Pain Scale 1-3) 12/06/18 14:30 01/05/19 14:29 Acetaminophen (Tylenol) 650 mg Q4H PRN ORAL fever 12/06/18 14:30 01/05/19 14:29 Al Hydroxide/Mg Hydroxide (Mylanta II) 30 ml Q6H PRN ORAL dyspepsia 12/06/18 14:30 01/05/19 14:29 Bisacodyl (Dulcolax) 10 mg DAILYPRN PRN RECTAL Constipation 12/06/18 14:45 01/05/19 14:29 Dextrose (Dextrose 50%) 25 ml Q30M PRN IV Hypoglycemia 12/06/18 14:30 01/05/19 14:29 Dextrose (Dextrose 50%) 50 ml Q30M PRN IV Hypoglycemia 12/06/18 14:30 01/05/19 14:29 Docusate Sodium (Colace) 100 mg EVERY 12 HOURS ORAL 12/06/18 21:00 01/05/19 20:59 12/07/18 08:50 Magnesium Hydroxide (Mom) 30 ml HSPRN PRN ORAL Constipation 12/06/18 14:30 01/05/19 14:29 Pantoprazole (Protonix) 40 mg DAILY ORAL 12/06/18 14:30 01/05/19 14:29 12/07/18 08:50 Polyethylene Glycol (Miralax) 17 gm DAILYPRN PRN ORAL Constipation 12/06/18 14:30 01/05/19 14:29 Sucralfate (Carafate) 1 gm TID ORAL 12/06/18 14:30 01/05/19 14:29 12/07/18 08:50 Temazepam (Restoril) 15 mg DAILYPRN PRN ORAL Insomnia 12/06/18 14:30 12/13/18 14:29 GI: Plan Problems: (1) Constipation (2) Gastroenteritis (3) Pleuritic chest pain (4) Hiatal hernia (5) GERD (gastroesophageal reflux disease) Plan Jun 2018- EGD and colonoscopy SUMMARY OF FINDINGS: 1. A 3-cm hiatal hernia. 2. Distal esophageal ring. 3. GE junction was found at about 30 cm from the incisors, so short esophagus. 4. Multiple gastric polyps, most probably fundic gland polyps. 5. Gastritis, status post biopsy. 6. Fair colonic prep without any obvious findings. 7. Internal hemorrhoids. No plans for GI procedures given recent history symptomatic treatment advance diet as tolerated continue ppi + carafate simithicone prn bowel regimen pain mgmt zofran prn follow labs Discussed with Dr. Zheng. Thank you for this patient referral, we will follow. Rodri Oliveros NP Dec 07, 2018 14:18
[2018-12-07] MEDS ORDERED: Simethicone 80mg tab ORAL PRN (14:45)
[2018-12-07 16:00] VITALS: BP 139/66
--- NOTE | 2018-12-07 16:53 | NUR ---
CASE MANAGEMENT:REVIEW 73 YR OLD MALE FROM HOME TO ER CC: CHEST AND ABDOMINAL PAIN W/NAUSEA SI: ABDOMINAL PAIN 97.3 89 18 136/84 95% ON RA IS: IV MORPHINE GI COCKTAIL CHEST XRAY : TO TELEMETRY PLAN: 2DECHO VENOUS DUPLEX
--- NOTE | 2018-12-07 17:03 | NUR ---
HOSPITALIZATION CRITERIA MESSAGE LEFT FOR DR PEDRAZA, DR MARRERO AND DR NICOLE REGARDING HOSPITAL CRITERIA
[2018-12-07] MEDS ORDERED: Docusate 100mg cap ORAL SCH (18:00)
--- NOTE | 2018-12-07 18:44 | Internal Med Progress Note ---
Subjective Date of Service: Dec 07, 2018 Physician Name CeciliaAngus Attending Physician Silvino Calvillo MD Current Medications Medications (Trade) Dose Ordered Sig/Radha Route PRN Reason Start Time Stop Time Status Last Admin Dose Admin Acetaminophen (Tylenol) 650 mg Q4H PRN ORAL Mild Pain (Pain Scale 1-3) 12/06/18 14:30 01/05/19 14:29 Acetaminophen (Tylenol) 650 mg Q4H PRN ORAL fever 12/06/18 14:30 01/05/19 14:29 Al Hydroxide/Mg Hydroxide (Mylanta II) 30 ml Q6H PRN ORAL dyspepsia 12/06/18 14:30 01/05/19 14:29 Bisacodyl (Dulcolax) 10 mg DAILYPRN PRN RECTAL Constipation 12/06/18 14:45 01/05/19 14:29 Dextrose (Dextrose 50%) 25 ml Q30M PRN IV Hypoglycemia 12/06/18 14:30 01/05/19 14:29 Dextrose (Dextrose 50%) 50 ml Q30M PRN IV Hypoglycemia 12/06/18 14:30 01/05/19 14:29 Docusate Sodium (Colace) 100 mg THREE TIMES A DAY ORAL 12/07/18 18:00 01/06/19 17:59 12/07/18 17:24 Magnesium Hydroxide (Mom) 30 ml HSPRN PRN ORAL Constipation 12/06/18 14:30 01/05/19 14:29 Pantoprazole (Protonix) 40 mg DAILY ORAL 12/06/18 14:30 01/05/19 14:29 12/07/18 08:50 Polyethylene Glycol (Miralax) 17 gm BEDTIME ORAL 12/07/18 21:00 01/06/19 20:59 Polyethylene Glycol (Miralax) 17 gm DAILYPRN PRN ORAL Constipation 12/06/18 14:30 01/05/19 14:29 Simethicone (Mylicon) 80 mg QIDPRN PRN ORAL GAS PAIN 12/07/18 14:45 01/06/19 14:44 Sucralfate (Carafate) 1 gm TID ORAL 12/06/18 14:30 01/05/19 14:29 12/07/18 17:24 Temazepam (Restoril) 15 mg DAILYPRN PRN ORAL Insomnia 12/06/18 14:30 12/13/18 14:29 Allergies: Coded Allergies: Broccoli (Verified Allergy, Unknown, 08/10/18) IBUPROFEN (Verified Allergy, Unknown, 08/10/18) LACTOSE (Verified Allergy, Unknown, 08/10/18) Lactose intolerant MILK (Verified Allergy, Unknown, 08/10/18) ONION (Verified Allergy, Unknown, 08/10/18) ORANGE JUICE (Verified Allergy, Unknown, 08/10/18) TOMATO (Verified Allergy, Unknown, 08/10/18) ROS Limited/Unobtainable: No Constitutional: Reports: no symptoms HEENT: Reports: no symptoms Cardiovascular: Reports: no symptoms Respiratory: Reports: no symptoms Gastrointestinal/Abdominal: Reports: abdominal pain Genitourinary: Reports: no symptoms Neurologic/Psychiatric: Reports: no symptoms Subjective 73 YO F admitted with epigastric pain. Cover for Int Rex- Dr Calvillo Objective Last Vital Signs Date Time Temp Pulse Resp B/P (MAP) Pulse Ox O2 Delivery O2 Flow Rate FiO2 12/07/18 16:00 98.5 78 20 139/66 (90) 99 12/07/18 09:00 Room Air Laboratory Tests Test 12/07/18 06:05 Sodium Level 137 MMOL/L (136-145) Potassium Level 4.5 MMOL/L (3.5-5.1) Chloride Level 102 MMOL/L (98-107) Carbon Dioxide Level 30 MMOL/L (21-32) Anion Gap 5 mmol/L (5-15) Blood Urea Nitrogen 16 mg/dL (7-18) Creatinine 0.8 MG/DL (0.55-1.30) Estimat Glomerular Filtration Rate mL/min (>60) Glucose Level 91 MG/DL (74-106) Calcium Level 9.4 MG/DL (8.5-10.1) Triglycerides Level 88 MG/DL (30-150) Cholesterol Level 222 MG/DL (< 200) H LDL Cholesterol 115 mg/dL (<100) H HDL Cholesterol 85 MG/DL (40-60) H Cholesterol/HDL Ratio 2.6 (3.3-4.4) L Thyroid Stimulating Hormone (TSH) 1.145 uiU/mL (0.358-3.740) Intake and Output 12/06/18 12/07/18 18:59 06:59 Intake Total 200 ml 120 ml Balance 200 ml 120 ml Intake Oral 200 ml 120 ml # Voids 3 3 # Bowel Movements 1 Objective PHYSICAL EXAMINATION: GENERAL: The patient is a well-developed and well-nourished female, in no apparent distress. HEENT: Eyes, pupils are equal and responsive to light and accommodation. Extraocular movements are intact. NECK: Supple without lymphadenopathy. CHEST: Lungs are clear to auscultation bilaterally without wheezes or rales. CARDIOVASCULAR: Regular rhythm and rate. S1-S2 are normal without murmurs, rubs, or gallops. ABDOMEN: Soft, nontender, and nondistended. Positive bowel sounds. No evidence of hepatosplenomegaly. Currently, no rebound or guarding noted. EXTREMITIES: Negative for clubbing, cyanosis, or edema. RECTAL/GENITAL: Refused. NEUROLOGIC: Cranial nerves II through XII are grossly intact without focal deficits. Motor strength is 5/5 bilaterally. Deep tendon reflexes are 2+ plantar. Assessment/Plan Assessment/Plan ASSESSMENT: This is a 73-year-old female with: 1. Epigastric pain. 2. Gastritis. 3. Gastroesophageal reflux disease. 4. History of hiatal hernia. 5. Hypertension. 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 7. Osteoarthritis of lumbar spine. TREATMENT: 1. Epigastric pain/gastritis. Continue Protonix as above. A Gastroenterology consultation has been obtained with Dr. Patrick Zheng. The patient was admitted to [facility] in July of 2018. The patient is status post endoscopy and colonoscopy Jun 2018. We will follow recommendations of Gastroenterology. 2. Hypertension. 3. Paget's disease of left femur. 4. Osteoarthritis of the lumbar spine. Angus Brooks MD Dec 07, 2018 18:44
[2018-12-07] MEDS ORDERED: VIT B12 PO (19:01)
--- NOTE | 2018-12-07 19:45 | NUR ---
NURSE NOTES: Received pt and report from ARIEL Smith. Observed pt resting in bed with both eyes open. Pt has a med surg order; awaiting for bed assignment. IV site intact, asymptomatic and patent. Bed is in the lowest position and locked. Call light within reach. No signs and symptoms of acute distress noted at this time. Will continue plan of care.
--- NOTE | 2018-12-07 19:55 | NUR ---
HAND-OFF: Report given to Colin Peña. Plan of care endorsed
[2018-12-07 20:00] VITALS: BP 110/54
--- NOTE | 2018-12-07 20:25 | Cardiology Report ---
APPROVED REPORT EXAM: Two-dimensional and M-mode echocardiogram with Doppler and color Doppler. INDICATION C.A.D M-Mode DIMENSIONS IVSd0.8 (0.7-1.1cm)Left Atrium (MM)3.3 (1.6-4.0cm) LVDd3.3 (3.5-5.6cm)Aortic Root2.6 (2.0-3.7cm) PWd0.6 (0.7-1.1cm)Aortic Cusp Exc.1.9 (1.5-2.0cm) IVSs1.2 cm LVDs2.6 (2.5-4.0cm) PWs1.3 cm Normal left ventricular chamber size, systolic function and wall motion . Left ventricular ejection fraction estimated to be 60%. No evidence of left ventricular hypertrophy . Anterior Echo-free space, may be due to pericardial fat or effusion. All other cardiac chamber sizes are within normal limits. Focal aortic valve sclerosis with adequate cusp excursion. Thickened mitral valve leaflets with normal excursion. Mitral annulus and aortic root calcification. Normal pulmonic valve structure. Normal tricuspid valve structure. IVC at normal size with physiologic collapse. A color flow and spectral Doppler study was performed and revealed: Trace aortic insufficiency . Trace mitral regurgitation. Mitral diastolic velocities suggest reduced left ventricular relaxation c/w mild LV diastolic dysfunction (Grade I ). Mild tricuspid regurgitation. Tricuspid systolic velocities suggests peak right ventricular systolic pressure of 20mmHg. Trace pulmonic regurgitation present .
[2018-12-07] MEDS ORDERED: Miralax 17gm pkt ORAL SCH (21:00)
--- NOTE | 2018-12-07 21:05 | Cardiology Report ---
APPROVED REPORT EKG Measurement Heart [id number] NM [id number] Normal sinus rhythm Normal ECG
[2018-12-08] VITALS: BP 123/76
[2018-12-08 04:00] VITALS: BP 114/60
[2018-12-08 06:55] LABS: BASOPHILS % (AUTO) 1.7 % (0.0-2.0); EOSINOPHILS % (AUTO) 2.9 % (0.0-3.0); HEMATOCRIT 44.1 % (37.0-47.0); HEMOGLOBIN 13.7 G/DL (12.0-16.0); LYMPHOCYTES % (AUTO) 41.6 % (20.0-45.0); MEAN CORPUSCULAR VOLUME 85 FL (80-99); MONOCYTES % (AUTO) 9.7 % (1.0-10.0); NEUTROPHILS % (AUTO) 44.1 % (45.0-75.0); PLATELET COUNT 241 K/UL (150-450); RED CELL DISTRIBUTION WIDTH 13.7 % (11.6-14.8); WHITE BLOOD COUNT 4.5 K/UL (4.8-10.8)
--- NOTE | 2018-12-08 07:08 | NUR ---
NURSE NOTES: Handoff received from ARIEL Clarke.
[2018-12-08 07:25] LABS: ANION GAP 10 mmol/L (5-15); BLOOD UREA NITROGEN 20 mg/dL (7-18); CARBON DIOXIDE 27 MMOL/L (21-32); CHLORIDE 100 MMOL/L (98-107); CREATININE 0.8 MG/DL (0.55-1.30); POTASSIUM 4.3 MMOL/L (3.5-5.1); SODIUM 137 MMOL/L (136-145)
--- NOTE | 2018-12-08 07:25 | NUR ---
TRANSFER TO FLOOR: Patient transferred to [facility], per Dr. Ling. Pt transferred to unit without any incident. Report given to ARIEL Mosquera. Belongings list checked and given to ARIEL Mosquera. Orders transferred. Vital signs stable.
[2018-12-08 08:00] VITALS: BP 121/55
[2018-12-08] MEDS ORDERED: Miralax 17gm pkt ORAL PRN (08:00)
[2018-12-08] MEDS ORDERED: Mylanta II UD 30ml ORAL PRN (08:00)
[2018-12-08] MEDS ORDERED: Simethicone 80mg tab ORAL PRN (08:00)
[2018-12-08] MEDS: Docusate 100mg cap ORAL SCH ×2 (08:12→13:06)
[2018-12-08] MEDS: Sucralfate 1gm tab ORAL SCH ×2 (08:12→13:06)
--- NOTE | 2018-12-08 08:19 | GI Progress Note ---
Assessment/Plan Problems: (1) Constipation ICD Codes: K59.00 - Constipation, unspecified SNOMED: 81630629 (2) HTN (hypertension) ICD Codes: I10 - Essential (primary) hypertension SNOMED: 09211606 (3) GERD (gastroesophageal reflux disease) ICD Codes: K21.9 - Gastro-esophageal reflux disease without esophagitis SNOMED: 361705301 (4) Hiatal hernia ICD Codes: K44.9 - Hiatal hernia SNOMED: 65928844 Status: stable Status Narrative Discussed with Dr. Zheng. Assessment/Plan Jun 2018- EGD and colonoscopy SUMMARY OF FINDINGS: 1. A 3-cm hiatal hernia. 2. Distal esophageal ring. 3. GE junction was found at about 30 cm from the incisors, so short esophagus. 4. Multiple gastric polyps, most probably fundic gland polyps. 5. Gastritis, status post biopsy. 6. Fair colonic prep without any obvious findings. 7. Internal hemorrhoids. No plans for GI procedures given recent history symptomatic treatment advance diet as tolerated continue ppi + carafate simithicone prn bowel regimen pain mgmt zofran prn follow labs The patient was seen and examined at bedside and all new and available data was reviewed in the patients chart. I agree with the above findings, impression and plan. (Patient seen earlier today. Signature stamp does not reflect patient encounter time.). - Patrick Zheng MD Subjective Subjective abdominal pain improved Objective Last 24 Hour Vital Signs Date Time Temp Pulse Resp B/P (MAP) Pulse Ox O2 Delivery O2 Flow Rate FiO2 12/08/18 04:00 98.7 67 16 114/60 (78) 97 12/08/18 00:00 98.4 75 17 123/76 (92) 97 12/07/18 21:00 Room Air 12/07/18 20:00 98.1 83 16 110/54 (72) 98 12/07/18 20:00 78 12/07/18 16:00 98.5 78 20 139/66 (90) 99 12/07/18 16:00 88 12/07/18 12:00 97.7 68 20 110/62 (78) 99 12/07/18 12:00 69 12/07/18 09:00 Room Air Intake and Output 12/07/18 12/08/18 19:00 07:00 Intake Total 460 ml Balance 460 ml Intake Oral 460 ml # Voids 3 Laboratory Tests Test 12/08/18 06:40 White Blood Count 4.5 K/UL (4.8-10.8) L Red Blood Count 5.20 M/UL (4.20-5.40) Hemoglobin 13.7 G/DL (12.0-16.0) Hematocrit 44.1 % (37.0-47.0) Mean Corpuscular Volume 85 FL (80-99) Mean Corpuscular Hemoglobin 26.4 PG (27.0-31.0) L Mean Corpuscular Hemoglobin Concent 31.1 G/DL (32.0-36.0) L Red Cell Distribution Width 13.7 % (11.6-14.8) Platelet Count 241 K/UL (150-450) Mean Platelet Volume 7.7 FL (6.5-10.1) Neutrophils (%) (Auto) 44.1 % (45.0-75.0) L Lymphocytes (%) (Auto) 41.6 % (20.0-45.0) Monocytes (%) (Auto) 9.7 % (1.0-10.0) Eosinophils (%) (Auto) 2.9 % (0.0-3.0) Basophils (%) (Auto) 1.7 % (0.0-2.0) Sodium Level 137 MMOL/L (136-145) Potassium Level 4.3 MMOL/L (3.5-5.1) Chloride Level 100 MMOL/L (98-107) Carbon Dioxide Level 27 MMOL/L (21-32) Anion Gap 10 mmol/L (5-15) Blood Urea Nitrogen 20 mg/dL (7-18) H Creatinine 0.8 MG/DL (0.55-1.30) Estimat Glomerular Filtration Rate mL/min (>60) Glucose Level 95 MG/DL (74-106) Calcium Level 10.0 MG/DL (8.5-10.1) Height (Feet): 5 Height (Inches): 2.00 Weight (Pounds): 190 General Appearance: WD/WN, no apparent distress, alert Cardiovascular: normal rate Respiratory/Chest: normal breath sounds, no respiratory distress Abdominal Exam: normal bowel sounds, non tender, soft Extremities: normal range of motion, non-tender oRdri Oliveros [employer] UP [employer] Dec 08, 2018 08:19
[2018-12-08 12:00] VITALS: BP 126/63
[2018-12-08] MEDS ORDERED: SUCRALFATE1 GM ORAL (12:33)
[2018-12-08] MEDS ORDERED: PANTOPRAZOLE SO40 MG ORAL (12:33)
[2018-12-08] MEDS ORDERED: DULCOLAX10 MG RECTAL (12:33)
[2018-12-08] MEDS ORDERED: MYLANTA II30 ML ORAL (12:33)
--- NOTE | 2018-12-08 12:38 | Pulmonology Progress Note ---
Assessment/Plan Problems: (1) PUD (peptic ulcer disease) (2) Partial small bowel obstruction (3) HTN (hypertension) Assessment/Plan improving Had BM dc meds done prescription written. Subjective ROS Limited/Unobtainable: No Constitutional: Reports: no symptoms HEENT: Repors: no symptoms Allergies: Coded Allergies: Broccoli (Verified Allergy, Unknown, 08/10/18) IBUPROFEN (Verified Allergy, Unknown, 08/10/18) LACTOSE (Verified Allergy, Unknown, 08/10/18) Lactose intolerant MILK (Verified Allergy, Unknown, 08/10/18) ONION (Verified Allergy, Unknown, 08/10/18) ORANGE JUICE (Verified Allergy, Unknown, 08/10/18) TOMATO (Verified Allergy, Unknown, 08/10/18) Objective Last 24 Hour Vital Signs Date Time Temp Pulse Resp B/P (MAP) Pulse Ox O2 Delivery O2 Flow Rate FiO2 12/08/18 12:00 98.4 80 18 126/63 (84) 97 12/08/18 08:00 97.7 79 18 121/55 (77) 98 12/08/18 04:00 98.7 67 16 114/60 (78) 97 12/08/18 00:00 98.4 75 17 123/76 (92) 97 12/07/18 21:00 Room Air 12/07/18 20:00 98.1 83 16 110/54 (72) 98 12/07/18 20:00 78 12/07/18 16:00 98.5 78 20 139/66 (90) 99 12/07/18 16:00 88 Intake and Output 12/07/18 12/08/18 19:00 07:00 Intake Total 460 ml Balance 460 ml Intake Oral 460 ml # Voids 3 General Appearance: WD/WN HEENT: normocephalic, atraumatic Respiratory/Chest: chest wall non-tender, lungs clear Cardiovascular: regularly irregular Abdomen: normal bowel sounds, soft, non tender Genitourinary: normal external genitalia Skin: no rash, no lesions Neurologic/Psychiatric: signwriter II-XII grossly normal Laboratory Tests 12/08/18 06:40: White Blood Count 4.5L, Red Blood Count 5.20, Hemoglobin 13.7, Hematocrit 44.1, Mean Corpuscular Volume 85, Mean Corpuscular Hemoglobin 26.4L, Mean Corpuscular Hemoglobin Concent 31.1L, Red Cell Distribution Width 13.7, Platelet Count 241, Mean Platelet Volume 7.7, Neutrophils (%) (Auto) 44.1L, Lymphocytes (%) (Auto) 41.6, Monocytes (%) (Auto) 9.7, Eosinophils (%) (Auto) 2.9, Basophils (%) (Auto ) 1.7, Sodium Level 137, Potassium Level 4.3, Chloride Level 100, Carbon Dioxide Level 27, Anion Gap 10, Blood Urea Nitrogen 20H, Creatinine 0.8, Estimat Glomerular Filtration Rate , Glucose Level 95, Calcium Level 10.0 Current Medications Medications (Trade) Dose Ordered Sig/Radha Route PRN Reason Start Time Stop Time Status Last Admin Dose Admin Acetaminophen (Tylenol) 650 mg Q4H PRN ORAL Mild Pain (Pain Scale 1-3) 12/08/18 08:00 01/05/19 07:59 Acetaminophen (Tylenol) 650 mg Q4H PRN ORAL fever (temp>100.5F) 12/08/18 08:00 01/05/19 07:59 Al Hydroxide/Mg Hydroxide (Mylanta II) 30 ml Q6H PRN ORAL dyspepsia 12/08/18 08:00 01/05/19 07:59 Bisacodyl (Dulcolax) 10 mg DAILYPRN PRN RECTAL Constipation 12/08/18 08:00 01/05/19 07:59 Dextrose (Dextrose 50%) 25 ml Q30M PRN IV Hypoglycemia 12/08/18 07:30 01/05/19 14:29 Dextrose (Dextrose 50%) 50 ml Q30M PRN IV Hypoglycemia 12/08/18 07:30 01/05/19 14:29 Docusate Sodium (Colace) 100 mg THREE TIMES A DAY ORAL 12/08/18 09:00 01/06/19 17:59 12/08/18 08:12 Magnesium Hydroxide (Mom) 30 ml HSPRN PRN ORAL Constipation 12/08/18 14:30 01/05/19 14:29 Pantoprazole (Protonix) 40 mg DAILY ORAL 12/08/18 09:00 01/05/19 14:29 12/08/18 08:13 Polyethylene Glycol (Miralax) 17 gm BEDTIME ORAL 12/08/18 21:00 01/06/19 20:59 Polyethylene Glycol (Miralax) 17 gm DAILYPRN PRN ORAL Constipation 12/08/18 08:00 01/05/19 07:59 Simethicone (Mylicon) 80 mg QIDPRN PRN ORAL GAS PAIN 12/08/18 08:00 01/06/19 07:59 Sucralfate (Carafate) 1 gm TID ORAL 12/08/18 09:00 01/05/19 14:29 12/08/18 08:12 Temazepam (Restoril) 15 mg HSPRN PRN ORAL Insomnia 12/08/18 14:30 12/15/18 14:29 Chano Ling MD Dec 08, 2018 12:38
[2018-12-08] MEDS ORDERED: Milk of Magnesia 30ml Ud ORAL PRN (14:30)
--- NOTE | 2018-12-08 15:53 | Internal Med Progress Note ---
Subjective Date of Service: Dec 08, 2018 Physician Name Brooks,Angus Attending Physician Silvino Calvillo MD Current Medications Medications (Trade) Dose Ordered Sig/Radha Route PRN Reason Start Time Stop Time Status Last Admin Dose Admin Acetaminophen (Tylenol) 650 mg Q4H PRN ORAL Mild Pain (Pain Scale 1-3) 12/08/18 08:00 01/05/19 07:59 Acetaminophen (Tylenol) 650 mg Q4H PRN ORAL fever (temp>100.5F) 12/08/18 08:00 01/05/19 07:59 Al Hydroxide/Mg Hydroxide (Mylanta II) 30 ml Q6H PRN ORAL dyspepsia 12/08/18 08:00 01/05/19 07:59 Bisacodyl (Dulcolax) 10 mg DAILYPRN PRN RECTAL Constipation 12/08/18 08:00 01/05/19 07:59 Dextrose (Dextrose 50%) 25 ml Q30M PRN IV Hypoglycemia 12/08/18 07:30 01/05/19 14:29 Dextrose (Dextrose 50%) 50 ml Q30M PRN IV Hypoglycemia 12/08/18 07:30 01/05/19 14:29 Docusate Sodium (Colace) 100 mg THREE TIMES A DAY ORAL 12/08/18 09:00 01/06/19 17:59 12/08/18 13:06 Magnesium Hydroxide (Mom) 30 ml HSPRN PRN ORAL Constipation 12/08/18 14:30 01/05/19 14:29 Pantoprazole (Protonix) 40 mg DAILY ORAL 12/08/18 09:00 01/05/19 14:29 12/08/18 08:13 Polyethylene Glycol (Miralax) 17 gm BEDTIME ORAL 12/08/18 21:00 01/06/19 20:59 Polyethylene Glycol (Miralax) 17 gm DAILYPRN PRN ORAL Constipation 12/08/18 08:00 01/05/19 07:59 Simethicone (Mylicon) 80 mg QIDPRN PRN ORAL GAS PAIN 12/08/18 08:00 01/06/19 07:59 Sucralfate (Carafate) 1 gm TID ORAL 12/08/18 09:00 01/05/19 14:29 12/08/18 13:06 Temazepam (Restoril) 15 mg HSPRN PRN ORAL Insomnia 12/08/18 14:30 12/15/18 14:29 Allergies: Coded Allergies: Broccoli (Verified Allergy, Unknown, 08/10/18) IBUPROFEN (Verified Allergy, Unknown, 08/10/18) LACTOSE (Verified Allergy, Unknown, 08/10/18) Lactose intolerant MILK (Verified Allergy, Unknown, 08/10/18) ONION (Verified Allergy, Unknown, 08/10/18) ORANGE JUICE (Verified Allergy, Unknown, 08/10/18) TOMATO (Verified Allergy, Unknown, 08/10/18) ROS Limited/Unobtainable: No Constitutional: Reports: no symptoms HEENT: Reports: no symptoms Cardiovascular: Reports: no symptoms Respiratory: Reports: no symptoms Gastrointestinal/Abdominal: Reports: abdominal pain Genitourinary: Reports: no symptoms Neurologic/Psychiatric: Reports: no symptoms Subjective 73 YO F admitted with epigastric pain. Cover for Int Med- Dr Calvillo Objective Last Vital Signs Date Time Temp Pulse Resp B/P (MAP) Pulse Ox O2 Delivery O2 Flow Rate FiO2 12/08/18 12:00 98.4 80 18 126/63 (84) 97 12/07/18 21:00 Room Air Laboratory Tests Test 12/08/18 06:40 White Blood Count 4.5 K/UL (4.8-10.8) L Red Blood Count 5.20 M/UL (4.20-5.40) Hemoglobin 13.7 G/DL (12.0-16.0) Hematocrit 44.1 % (37.0-47.0) Mean Corpuscular Volume 85 FL (80-99) Mean Corpuscular Hemoglobin 26.4 PG (27.0-31.0) L Mean Corpuscular Hemoglobin Concent 31.1 G/DL (32.0-36.0) L Red Cell Distribution Width 13.7 % (11.6-14.8) Platelet Count 241 K/UL (150-450) Mean Platelet Volume 7.7 FL (6.5-10.1) Neutrophils (%) (Auto) 44.1 % (45.0-75.0) L Lymphocytes (%) (Auto) 41.6 % (20.0-45.0) Monocytes (%) (Auto) 9.7 % (1.0-10.0) Eosinophils (%) (Auto) 2.9 % (0.0-3.0) Basophils (%) (Auto) 1.7 % (0.0-2.0) Sodium Level 137 MMOL/L (136-145) Potassium Level 4.3 MMOL/L (3.5-5.1) Chloride Level 100 MMOL/L (98-107) Carbon Dioxide Level 27 MMOL/L (21-32) Anion Gap 10 mmol/L (5-15) Blood Urea Nitrogen 20 mg/dL (7-18) H Creatinine 0.8 MG/DL (0.55-1.30) Estimat Glomerular Filtration Rate mL/min (>60) Glucose Level 95 MG/DL (74-106) Calcium Level 10.0 MG/DL (8.5-10.1) Intake and Output 12/07/18 12/08/18 19:00 07:00 Intake Total 460 ml Balance 460 ml Intake Oral 460 ml # Voids 3 Objective PHYSICAL EXAMINATION: GENERAL: The patient is a well-developed and well-nourished female, in no apparent distress. HEENT: Eyes, pupils are equal and responsive to light and accommodation. Extraocular movements are intact. NECK: Supple without lymphadenopathy. CHEST: Lungs are clear to auscultation bilaterally without wheezes or rales. CARDIOVASCULAR: Regular rhythm and rate. S1-S2 are normal without murmurs, rubs, or gallops. ABDOMEN: Soft, nontender, and nondistended. Positive bowel sounds. No evidence of hepatosplenomegaly. Currently, no rebound or guarding noted. EXTREMITIES: Negative for clubbing, cyanosis, or edema. RECTAL/GENITAL: Refused. NEUROLOGIC: Cranial nerves II through XII are grossly intact without focal deficits. Motor strength is 5/5 bilaterally. Deep tendon reflexes are 2+ plantar. Assessment/Plan Assessment/Plan ASSESSMENT: This is a 73-year-old female with: 1. Epigastric pain. 2. Gastritis. 3. Gastroesophageal reflux disease. 4. History of hiatal hernia. 5. Hypertension. 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 7. Osteoarthritis of lumbar spine. TREATMENT: 1. Epigastric pain/gastritis. Continue Protonix as above. A Gastroenterology consultation has been obtained with Dr. Patrick Zheng. The patient was admitted to [facility] in July of 2018. The patient is status post endoscopy and colonoscopy Jun 2018. We will follow recommendations of Gastroenterology. 2. Hypertension. 3. Paget's disease of left femur. 4. Osteoarthritis of the lumbar spine. 5. discharge home today Angus Brooks MD Dec 08, 2018 15:53
--- NOTE | 2018-12-08 16:46 | NUR ---
DISCHARGE NOTE PATIENT HAS BEEN DISCHARGED TO HOME VIA TAXI VOUCHER PROVIDED. PATIENT IN STABLE CONDITION, BELONGINGS CHECKED AND SIGNED. IV REMOVED, NO SIGH OF INFECTION OR HEMATOMA NOTED. PATIENT WILL FOLLOW UP WITH PRIMARY CARE PROVIDER. MEDICATION PROVIDED ORDERED. ID BRACELET REMOVED.
[2018-12-08] MEDS ORDERED: Miralax 17gm pkt ORAL SCH (21:00)
--- NOTE | 2018-12-09 11:05 | Discharge Summary ---
Discharge Summary Discharge Summary _ DATE OF ADMISSION: 12/06/2018 DATE OF DISCHARGE: 12/08/2018 DISCHARGED BY: Dr. Calvillo REASON FOR ADMISSION: 73 years old female with past medical history of pancreatitis , coronary artery disease, hypertension , hiatal hernia , GERD, gastritis , presented to emergency department complaining of abdominal pain. She reported upper abdominal pain and constipation for the past 3 days. She denied chest pain or shortness of breath. Upon evaluation vital signs were stable. Urinalysis revealed no evidence of UTI. Laboratory work-up revealed no leukocytosis , stable hemoglobin and hematocrit. Stable platelet count. Stable electrolytes and renal parameters. Stable LFT and lipase. Troponin negative. pro BNP 43. EKG revealed sinus rhythm , no acute ischemic changes. Chest x-ray revealed no acute cardiopulmonary pathology. In emergency department patient received GI cocktail, and pain subsequently improved. Patient admitted for further management. CONSULTANTS: pulmonary/critical care Dr. Ling GI specialist Dr Zheng [facility] COURSE: Patient admitted . GI specialist closely followed. Patient underdone EGD and colonoscopy in June 2018, which revealed 3 cm hiatal hernia, distal esophageal ring, GE junction was found at about 30 cm from the incisors , therefore short esophagus, multiple gastric polyps , most probably fundic gland polyps, gastritis, status post biopsy, fair colonic preparation without any obvious findings, internal hemorrhoids. Per GI specialist , no plans for the GI procedure at this time given recent procedure. Pain management was addressed. Symptomatic treatment provided. Patient was continued on PPI and Carafate. Simethicone was on board as needed. Antiemetic provided as needed. Diet was advanced as tolerated. Patient was able to tolerate diet. Patient had bowel movement and clinically improved afterwards. Abdominal pain resolved. Blood pressure was closely monitored initial hypotension resolved. Patient was normotensive. 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 DISCHARGE INSTRUCTIONS: Patient was discharged home. Follow up with primary care provider in one week. I have been assigned to dictate discharge summary for this account. I was not involved in the patient's management. Sanjuana Ferreira NP Dec 09, 2018 11:05
== END 2018-12-08 16:50 | disposition home or self-care (01) | DRG 392 ==
LOC: EMR 07:10 → 2E 08:10 → EDBEDREQ 08:43 → 4E 12-08 06:50
DX: K29.70 Gastritis, unspecified, without bleeding (principal); K56.690 Other partial intestinal obstruction; K27.9 Peptic ulcer, site unspecified, unspecified as acute or chronic, without hemorrhage or perforation; M88.852 Osteitis deformans of left thigh; K21.9 Gastro-esophageal reflux disease without esophagitis; K44.9 Diaphragmatic hernia without obstruction or gangrene; I10 Essential (primary) hypertension; M47.896 Other spondylosis, lumbar region; I25.10 Atherosclerotic heart disease of native coronary artery without angina pectoris; K59.00 Constipation, unspecified; Z88.6 Allergy status to analgesic agent; Z91.011 Allergy to milk products; Z91.018 Allergy to other foods; K64.8 Other hemorrhoids
CPT/HCPCS: 36415; 71045; 80048; 80053; 80061; 81003; 82550; 82553; 83690; 83880; 84443; 84484; 85025; 85610; 85730; 93005; 93306; 93970; 96374; 96375; 99285; J2405

== ENCOUNTER 2019-01-24 08:12 | Emergency (ER) | payer MEDICARE, MEDICAID ==
[~2019-01-24] VITALS: Ht 157.5 cm; Wt 74.4 kg
[~2019-01-24 08:12] MED LIST changes: +DULCOLAX10 MG RECTAL; +MYLANTA II30 ML ORAL; +SUCRALFATE1 GM ORAL; +VIT B12 PO
--- NOTE | 2019-01-24 08:22 | Emergency Room Report ---
History of Present Illness General Chief Complaint: Epigastric Pain Source: Patient Present Illness HPI 73 years old female with past medical history of pancreatitis, coronary artery disease, hypertension , hiatal hernia, GERD, gastritis, EGD 2018, recent hospitalization November 2018, presents with burning discomfort epigastrically, patient states she ran out of her pantoprazole and since then she has been having burning epigastric pain radiating up to her chest, she denies any shortness of breath, she has no dyspnea on exertion she states the same pain she had when her pantoprazole runs out, denies any nausea vomiting she does endorse some achy burning epigastric pain alleviated with pantoprazole no aggravating factors severity is mild, constant. Patient states she had a negative stress test she states she is never had a heart attack. 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 Allergies: Coded Allergies: Broccoli (Verified Allergy, Unknown, 08/10/18) IBUPROFEN (Verified Allergy, Unknown, 08/10/18) LACTOSE (Verified Allergy, Unknown, 08/10/18) Lactose intolerant MILK (Verified Allergy, Unknown, 08/10/18) ONION (Verified Allergy, Unknown, 08/10/18) ORANGE JUICE (Verified Allergy, Unknown, 08/10/18) TOMATO (Verified Allergy, Unknown, 08/10/18) Patient History Past Medical History: see triage record Reviewed Nursing Documentation: PMH: Agreed; PSxH: Agreed Nursing Documentation-PMH Hx Cardiac Problems: Yes - tachycardia Hx Hypertension: No Hx Pacemaker: No Hx Asthma: No Hx COPD: No Hx Diabetes: No Hx Cancer: No Hx Gastrointestinal Problems: Yes Hx Dialysis: No Hx Neurological Problems: No Hx Cerebrovascular Accident: No Hx Seizures: No Review of Systems All Other Systems: negative except mentioned in HPI Physical Exam Vital Signs Date Time Temp Pulse Resp B/P (MAP) Pulse Ox O2 Delivery O2 Flow Rate FiO2 01/24/19 08:19 98.1 75 18 138/83 (101) 96 Room Air Sp02 EP Interpretation: reviewed, normal General Appearance: well appearing, no apparent distress, alert Head: normocephalic, atraumatic Eyes: bilateral eye PERRL, bilateral eye EOMI ENT: uvula midline, moist mucus membranes Neck: supple, thyroid normal, supple/symm/no masses Respiratory: lungs clear, no respiratory distress, no retraction, no accessory muscle use Cardiovascular #1: normal peripheral pulses, regular rate, rhythm, no edema, no gallop, no murmur Gastrointestinal: non tender, soft, no guarding, no rebound Musculoskeletal: normal inspection Neurologic: alert, oriented x3 Psychiatric: mood/affect normal Skin: no rash, warm/dry Medical Decision Making Diagnostic Impression: Primary Impression: Hiatal hernia Additional Impression: GERD (gastroesophageal reflux disease) Qualified Codes: K21.9 - Gastro-esophageal reflux disease without esophagitis ER Course 73-year-old female history of GERD, presents with epigastric pain after running out of pantoprazole includes GERD, ACS, pneumonia, Patient most likely with GERD however we will do an ACS work-up for evaluation of her heart she denies any dyspnea on exertion she states her heart feels fine she does has an epigastric discomfort after running out of her pantoprazole Will provide GI cocktail symptoms have been ongoing for 8 hours constant low suspicion for ACS however will check troponin Labs negative, EKG negative Patient 9:34 AM, patient is completely asymptomatic and feels better wants to go home Disposition home with return precautions counseled patient follow-up with PCP Laboratory Tests Test 01/24/19 08:35 White Blood Count 3.5 K/UL (4.8-10.8) L Red Blood Count 4.28 M/UL (4.20-5.40) Hemoglobin 10.9 G/DL (12.0-16.0) L Hematocrit 34.7 % (37.0-47.0) L Mean Corpuscular Volume 81 FL (80-99) Mean Corpuscular Hemoglobin 25.5 PG (27.0-31.0) L Mean Corpuscular Hemoglobin Concent 31.4 G/DL (32.0-36.0) L Red Cell Distribution Width 13.7 % (11.6-14.8) Platelet Count 217 K/UL (150-450) Mean Platelet Volume 8.2 FL (6.5-10.1) Neutrophils (%) (Auto) 52.5 % (45.0-75.0) Lymphocytes (%) (Auto) 33.2 % (20.0-45.0) Monocytes (%) (Auto) 8.3 % (1.0-10.0) Eosinophils (%) (Auto) 4.4 % (0.0-3.0) H Basophils (%) (Auto) 1.6 % (0.0-2.0) Urine Color Pale yellow Urine Appearance Clear Urine pH 5 (4.5-8.0) Urine Specific Malott 1.015 (1.005-1.035) Urine Protein Negative (NEGATIVE) Urine Glucose (UA) Negative (NEGATIVE) Urine Ketones Negative (NEGATIVE) Urine Blood Negative (NEGATIVE) Urine Nitrite Negative (NEGATIVE) Urine Bilirubin Negative (NEGATIVE) Urine Urobilinogen Normal MG/DL (0.0-1.0) Urine Leukocyte Esterase Negative (NEGATIVE) Sodium Level 140 MMOL/L (136-145) Potassium Level 4.3 MMOL/L (3.5-5.1) Chloride Level 106 MMOL/L (98-107) Carbon Dioxide Level 25 MMOL/L (21-32) Anion Gap 9 mmol/L (5-15) Blood Urea Nitrogen 10 mg/dL (7-18) Creatinine 0.6 MG/DL (0.55-1.30) Estimate Glomerular Filtration Rate mL/min (>60) Glucose Level 94 MG/DL (74-106) Calcium Level 9.1 MG/DL (8.5-10.1) Total Bilirubin 0.7 MG/DL (0.2-1.0) Aspartate Amino Transferase (AST) 25 U/L (15-37) Alanine Aminotransferase (ALT) 20 U/L (12-78) Alkaline Phosphatase 114 U/L (46-116) Troponin I 0.000 ng/mL (0.000-0.056) Total Protein 7.3 G/DL (6.4-8.2) Albumin 3.5 G/DL (3.4-5.0) Globulin 3.8 g/dL Albumin/Globulin Ratio 0.9 (1.0-2.7) L Lipase 156 U/L (73-393) EKG Diagnostic Results EKG Time: 08:41 EP Interpretation: NSR, rate 66, QTc 442, no acute ST elevations, normal axis Chest X-Ray Diagnostic Results Chest X-Ray Diagnostic Results : Chest X-Ray Ordered: Yes # of Views/Limited/Complete: 1 View Indication: Chest Pain EP Interpretation: Yes Interpretation: no consolidation, no effusion, no pneumothorax, no acute cardiopulmonary disease Impression: No acute disease Electronically Signed by: Lux Torres Other X-Ray Diagnostic Results Other X-Ray Diagnostic Results : X-Ray ordered: Left Hand # of Views/Limited Vs Complete: 3 View Indication: Pain EP Interpretation: Yes Interpretation: no dislocation, no fractures Impression: No acute disease Electronically Signed by: Lux Torres MD Disposition: HOME, SELF-CARE Condition: Stable Scripts Pantoprazole* (PANTOPRAZOLE*) 40 Mg Tablet. 40 MG ORAL DAILY, #60 TAB Prov: Lux Torres MD 01/24/19 Referrals: Silvino Calvillo MD, Mehrdad MD Patient Instructions: Gastroesophageal Reflux Disease, Adult, Heartburn, Easy- to-Read, Schwannoma Additional Instructions: The patient was provided with discharge instructions, notified to follow-up with a primary care doctor and or specialist in the next 24-48 hours, and to return to the ED if they have worsening of their symptoms. Please note that this report is being documented using DRAGON technology. This can lead to erroneous entry secondary to incorrect interpretation by the dictating instrument. Lux Torres MD Jan 24, 2019 08:22
[2019-01-24] MEDS ORDERED: Lidocaine 2% Visc 15ml soln ORAL ONE (08:30)
[2019-01-24] MEDS ORDERED: Isovue-300 100ml vial INJ PRN (08:30)
[2019-01-24] MEDS ORDERED: Sucralfate 1gm tab ORAL ONE (08:30)
[2019-01-24] MEDS ORDERED: Mylanta II UD 30ml ORAL ONE (08:30)
[2019-01-24] MEDS ORDERED: PANTOPRAZOLE SO40 MG ORAL (08:30)
--- NOTE | 2019-01-24 08:56 | NUR ---
ED Nurse Note: Pt came in from home due to burning like epigastric area chest discomfort, stated that she ran out of Pantoprazole x 8 hours and has been experiencing this symptom since then. No compaint of n/v/d. Pain 10/26 fadumo. AOx4, Vss at this time. Will cont to monitor.
--- NOTE | 2019-01-24 09:02 | NUR ---
ED Nurse Note: Confirmed with Dr. Malhotra that CT with contrast is cancelled.
[2019-01-24 09:04] LABS: BASOPHILS % (AUTO) 1.6 % (0.0-2.0); EOSINOPHILS % (AUTO) 4.4 % (0.0-3.0); HEMATOCRIT 34.7 % (37.0-47.0); HEMOGLOBIN 10.9 G/DL (12.0-16.0); LYMPHOCYTES % (AUTO) 33.2 % (20.0-45.0); MEAN CORPUSCULAR VOLUME 81 FL (80-99); MONOCYTES % (AUTO) 8.3 % (1.0-10.0); NEUTROPHILS % (AUTO) 52.5 % (45.0-75.0); PLATELET COUNT 217 K/UL (150-450); RED BLOOD COUNT 4.28 M/UL (4.20-5.40); RED CELL DISTRIBUTION WIDTH 13.7 % (11.6-14.8); WHITE BLOOD COUNT 3.5 K/UL (4.8-10.8)
[2019-01-24 09:05] LABS: APPEARANCE,URINE CLEAR; BILIRUBIN, URINE NEGATIVE (NEGATIVE); COLOR,URINE PALE YELLOW; GLUCOSE, URINE (UA) NEGATIVE (NEGATIVE); KETONES,URINE NEGATIVE (NEGATIVE); LEUKOCYTE ESTERASE ,URINE NEGATIVE (NEGATIVE); NITRITE,URINE NEGATIVE (NEGATIVE); PH,URINE 5 (4.5-8.0); PROTEIN,URINE NEGATIVE (NEGATIVE); UROBILINOGEN,URINE NORMAL MG/DL (0.0-1.0)
--- NOTE | 2019-01-24 09:10 | NUR ---
ED Nurse Note: Pt refused having IV access, ERMD aware and is ok with pt not having IV line. Pt medicated and tolerated well, reported that pain has been improved at this time 09/25.
--- NOTE | 2019-01-24 09:10 | NUR ---
ED Nurse Note: X-ray tech at bedside for imaging.
[2019-01-24 09:12] LABS: ANION GAP 9 mmol/L (5-15); BLOOD UREA NITROGEN 10 mg/dL (7-18); CALCIUM 9.1 MG/DL (8.5-10.1); CARBON DIOXIDE 25 MMOL/L (21-32); CHLORIDE 106 MMOL/L (98-107); CREATININE 0.6 MG/DL (0.55-1.30); POTASSIUM 4.3 MMOL/L (3.5-5.1); SODIUM 140 MMOL/L (136-145)
[2019-01-24 09:16] LABS: ALANINE AMINOTRANSFERASE 20 U/L (12-78); ALBUMIN 3.5 G/DL (3.4-5.0); ALBUMIN/GLOBULIN RATIO 0.9 (1.0-2.7); ALKALINE PHOSPHATASE 114 U/L (46-116); ASPARTATE AMINO TRANSFERASE 25 U/L (15-37); BILIRUBIN,TOTAL 0.7 MG/DL (0.2-1.0)
[2019-01-24 09:41] VITALS: BP 135/79
[2019-01-24 09:42] VITALS: BP 135/79
--- NOTE | 2019-01-24 09:42 | NUR ---
ER DISCHARGE NOTE: Patient is cleared to be discharged per ERMD, pt is aox4, on room air, with stable vital signs. pt was given dc and prescription instructions, pt was able to verbalize understanding, pt id band removed. pt is able to ambulate with steady gait. pt took all belongings.
--- NOTE | 2019-01-24 09:49 | Diagnostic Imaging Report ---
EXAM: XR Chest, 1 View CLINICAL HISTORY: PAIN TECHNIQUE: Frontal view of the chest. COMPARISON: Chest x-ray 12/06/18 FINDINGS: Lungs: Unremarkable. No consolidation. Pleural space: Unremarkable. No pneumothorax. Heart: Cardiomegaly. Mediastinum: Unremarkable. Bones/joints: Mild degenerative changes of the spine. IMPRESSION: Cardiomegaly. No acute process.
--- NOTE | 2019-01-24 09:52 | Diagnostic Imaging Report ---
EXAM: XR Left Hand Complete, 3 or More Views CLINICAL HISTORY: PAIN TECHNIQUE: Frontal, lateral and oblique views of the left hand. COMPARISON: No relevant prior studies available. FINDINGS: Bones/joints: Osteopenic. Mild degenerative changes of the DIPs. No acute fracture. No dislocation. Soft tissues: Mild dorsal soft tissue swelling at the proximal hand. No radiopaque foreign body. IMPRESSION: 1. Osteopenic. No acute fracture or malalignment. 2. Mild dorsal soft tissue swelling at the proximal hand.
--- NOTE | 2019-01-25 11:47 | Cardiology Report ---
APPROVED REPORT EKG Measurement Heart [id number] Normal sinus rhythm Normal ECG
== END 2019-01-24 09:42 | disposition home or self-care (01) ==
LOC: EMR 08:38
DX: K44.9 Diaphragmatic hernia without obstruction or gangrene (principal); K21.9 Gastro-esophageal reflux disease without esophagitis; M79.642 Pain in left hand; Z91.018 Allergy to other foods; Z91.011 Allergy to milk products; I25.10 Atherosclerotic heart disease of native coronary artery without angina pectoris; I10 Essential (primary) hypertension; R07.9 Chest pain, unspecified
CPT/HCPCS: 36415; 71045; 80053; 81003; 83690; 84484; 85025; 93005; 99284

== ENCOUNTER 2019-01-31 09:31 | Inpatient (IN) | payer MEDICARE, MEDICAID ==
[~2019-01-31] VITALS: Ht 157.5 cm; Wt 75.8 kg
--- NOTE | 2019-01-31 09:56 | NUR ---
ED Nurse Note: PT WALKED IN TO ER TODAY FROM HOME. AOX4. PT C/O UPPER ABDOMINAL PAIN, 4/10 X THIS MORNING AROUND 0400. PT STATES SHE IS NOW FEELING BURNING UP HER CHEST. PT STATES SHE HAS HX OF ACID REFLUX AND THIS FEELS ACID. PT STATES SHE IS ON MEDICATIONS FOR ACID REFLUX BUT DOES NOT THINK THE MEDICATIONS ARE STRONG ENOUGH. PT WANTED TO SEE HER GI DOCTOR BUT COULD NOT GET AN APPOINTMENT SOON ENOUGH SO CAME IN TO ER. PT DENIES CHEST PAIN OR SOB.
[2019-01-31 09:58] VITALS: BP 122/74
[2019-01-31 10:42] LABS: EOSINOPHILS % (AUTO) 2.8 % (0.0-3.0); HEMOGLOBIN 11.4 G/DL (12.0-16.0); LYMPHOCYTES % (AUTO) 32.1 % (20.0-45.0); MEAN CORPUSCULAR VOLUME 81 FL (80-99); MONOCYTES % (AUTO) 9.2 % (1.0-10.0); NEUTROPHILS % (AUTO) 53.9 % (45.0-75.0); PLATELET COUNT 221 K/UL (150-450); RED BLOOD COUNT 4.44 M/UL (4.20-5.40); RED CELL DISTRIBUTION WIDTH 13.6 % (11.6-14.8); WHITE BLOOD COUNT 4.2 K/UL (4.8-10.8)
[2019-01-31 10:48] LABS: ANION GAP 7 mmol/L (5-15); BLOOD UREA NITROGEN 14 mg/dL (7-18); CALCIUM 9.2 MG/DL (8.5-10.1); CARBON DIOXIDE 27 MMOL/L (21-32); CHLORIDE 104 MMOL/L (98-107); CREATININE 0.8 MG/DL (0.55-1.30); SODIUM 138 MMOL/L (136-145)
[2019-01-31 11:01] LABS: ALANINE AMINOTRANSFERASE 18 U/L (12-78); ALBUMIN 3.6 G/DL (3.4-5.0); ALBUMIN/GLOBULIN RATIO 0.9 (1.0-2.7); ALKALINE PHOSPHATASE 120 U/L (46-116); ASPARTATE AMINO TRANSFERASE 20 U/L (15-37); BILIRUBIN,TOTAL 0.5 MG/DL (0.2-1.0); CKMB 1.2 NG/ML (0.0-3.6); CREATINE KINASE 145 U/L (26-308)
--- NOTE | 2019-01-31 11:03 | NUR ---
ED Nurse Note: TELE UNIT CALLED FOR PT REPORT. REPORT GIVEN TO ARIEL KENNY. RN READY TO ACCEPT PT. PT TAKEN UP TO TELE UNIT VIA GURNEY ON JUKE BOX SERVICER WITH ALL BELONGINGS RUNNING IVF ACCOMPANIED BY PRIMARY RN AND EMT. VSS.
--- NOTE | 2019-01-31 11:49 | Diagnostic Imaging Report ---
EXAM: XR Chest, 1 View CLINICAL HISTORY: Chest pain TECHNIQUE: Frontal view of the chest. COMPARISON: No relevant prior studies available. FINDINGS: Lungs: Unremarkable. The lungs appear clear. No focal consolidation. Pleural space: Unremarkable. The costophrenic angles are sharp. No visible pneumothorax. Heart: Borderline cardiomegaly. Mediastinum: Unremarkable. Bones joints: Unremarkable. Vasculature: Atherosclerotic calcifications are noted within the aortic arch. IMPRESSION: No acute findings.
--- NOTE | 2019-01-31 12:00 | NUR ---
NURSE NOTES: Patient arrived at 12:15 from ER. patient is AAO x 4. Patient is breathing even and unlabored on room air. 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 Patient states mild discomfort on abdominal area. Patient states she is able to eat "regular food." Belonging checklist was signed. IV on left hand is patent, dry and intact. Will follow up with plan fo care.
--- NOTE | 2019-01-31 12:12 | Emergency Room Report ---
History of Present Illness General Chief Complaint: Abdominal Pain Source: Patient Present Illness HPI Patient presents with complaints of initially epigastric pain with increased nausea However later also complains of midsternal pain cramping and sharp Denies any shortness of breath denies any pleurisy denies any back or flank pain denies any fevers patient reports significantly decreased oral intake given the discomfort of her Epigastric area as well Patient was here recently and reports that she had requested medications and refills of her gastric medications however as she felt like there were not improving returns for further eval Allergies: Coded Allergies: Broccoli (Verified Allergy, Unknown, 08/10/18) IBUPROFEN (Verified Allergy, Unknown, 08/10/18) LACTOSE (Verified Allergy, Unknown, 08/10/18) Lactose intolerant MILK (Verified Allergy, Unknown, 08/10/18) ONION (Verified Allergy, Unknown, 08/10/18) ORANGE JUICE (Verified Allergy, Unknown, 08/10/18) TOMATO (Verified Allergy, Unknown, 08/10/18) Patient History Past Medical History: see triage record Last Menstrual Period: na Reviewed Nursing Documentation: PMH: Agreed; PSxH: Agreed Nursing Documentation-PMH Past Medical History: No History, Except For Hx Cardiac Problems: Yes - tachycardia Hx Hypertension: No Hx Pacemaker: No Hx Asthma: No Hx COPD: No Hx Diabetes: No Hx Cancer: No Hx Gastrointestinal Problems: Yes Hx Dialysis: No Hx Neurological Problems: No Hx Cerebrovascular Accident: No Hx Seizures: No Review of Systems All Other Systems: negative except mentioned in HPI Physical Exam Vital Signs Date Time Temp Pulse Resp B/P (MAP) Pulse Ox O2 Delivery O2 Flow Rate FiO2 01/31/19 09:41 97.5 84 20 119/72 (88) 98 Room Air Sp02 EP Interpretation: reviewed, normal General Appearance: well appearing, no apparent distress Head: normocephalic, atraumatic Eyes: bilateral eye PERRL, bilateral eye EOMI ENT: hearing grossly normal, normal pharynx, TMs + canals normal, uvula midline Neck: full range of motion, supple, no meningismus, no bony tend Respiratory: lungs clear, normal breath sounds, no rhonchi, no respiratory distress, no retraction, no accessory muscle use Cardiovascular #1: normal peripheral pulses, regular rate, rhythm, no edema, no gallop, no JVD, no murmur Gastrointestinal: normal bowel sounds, non tender, soft, no mass, no organomegaly, non-distended, no guarding, no hernia, no pulsatile mass, no rebound Genitourinary: no CVA tenderness Musculoskeletal: normal inspection Neurologic: oriented x3, responsive, body builder apprentice III-XII nml as tested, motor strength/ tone normal, sensory intact Psychiatric: mood/affect normal Skin: no rash Lymphatic: normal inspection, no adenopathy Medical Decision Making Diagnostic Impression: Primary Impression: ACS (acute coronary syndrome) ER Course Patient is a fairly complex patient with multiple differential to consideration including but not limited to cardiac cardiopulmonary and vascular emergencies At this time patient also describes some epigastric discomfort and GI symptoms Initial EKG and blood work are appropriate patient's x-ray is also normal Given her comorbidities and symptoms patient admitted for further care Labs Test 01/31/19 10:20 White Blood Count 4.2 K/UL (4.8-10.8) Red Blood Count 4.44 M/UL (4.20-5.40) Hemoglobin 11.4 G/DL (12.0-16.0) Hematocrit 36.0 % (37.0-47.0) Mean Corpuscular Volume 81 FL (80-99) Mean Corpuscular Hemoglobin 25.6 PG (27.0-31.0) Mean Corpuscular Hemoglobin Concent 31.5 G/DL (32.0-36.0) Red Cell Distribution Width 13.6 % (11.6-14.8) Platelet Count 221 K/UL (150-450) Mean Platelet Volume 8.3 FL (6.5-10.1) Neutrophils (%) (Auto) 53.9 % (45.0-75.0) Lymphocytes (%) (Auto) 32.1 % (20.0-45.0) Monocytes (%) (Auto) 9.2 % (1.0-10.0) Eosinophils (%) (Auto) 2.8 % (0.0-3.0) Basophils (%) (Auto) 2.0 % (0.0-2.0) Sodium Level 138 MMOL/L (136-145) Potassium Level 4.0 MMOL/L (3.5-5.1) Chloride Level 104 MMOL/L (98-107) Carbon Dioxide Level 27 MMOL/L (21-32) Anion Gap 7 mmol/L (5-15) Blood Urea Nitrogen 14 mg/dL (7-18) Creatinine 0.8 MG/DL (0.55-1.30) Estimat Glomerular Filtration Rate mL/min (>60) Glucose Level 86 MG/DL (74-106) Calcium Level 9.2 MG/DL (8.5-10.1) Total Bilirubin 0.5 MG/DL (0.2-1.0) Aspartate Amino Transf (AST/SGOT) 20 U/L (15-37) Alanine Aminotransferase (ALT/SGPT) 18 U/L (12-78) Alkaline Phosphatase 120 U/L (46-116) Total Creatine Kinase 145 U/L (26-308) Creatine Kinase MB 1.2 NG/ML (0.0-3.6) Creatine Kinase MB Relative Index 0.8 Troponin I 0.000 ng/mL (0.000-0.056) Total Protein 7.6 G/DL (6.4-8.2) Albumin 3.6 G/DL (3.4-5.0) Globulin 4.0 g/dL Albumin/Globulin Ratio 0.9 (1.0-2.7) Lipase 208 U/L (73-393) EKG Diagnostic Results Rate: normal Rhythm: NSR ST Segments: other - Nonspecific ST changes Rhythm Strip Diag. Results EP Interpretation: yes Rate: 70 Rhythm: NSR, no PVC's, no ectopy Chest X-Ray Diagnostic Results Chest X-Ray Diagnostic Results : Chest X-Ray Ordered: Yes # of Views/Limited/Complete: 1 View Indication: Chest Pain EP Interpretation: Yes Interpretation: no consolidation, no effusion, no pneumothorax Impression: No acute disease Electronically Signed by: Bronwyn Rubalcava DO Last Vital Signs Date Time Temp Pulse Resp B/P (MAP) Pulse Ox O2 Delivery O2 Flow Rate FiO2 01/31/19 11:04 98.2 82 18 126/76 100 Room Air Status: improved Disposition: ADMITTED INPATIENT Condition: Serious Referrals: Silvino Calvillo MD (PCP) Bronwyn Rubalcava DO Jan 31, 2019 12:12
--- NOTE | 2019-01-31 12:30 | NUR ---
NURSE NOTES: Spoke to Dr. Calvillo, received orders.
[2019-01-31 13:00] VITALS: BP 124/66
[2019-01-31] MEDS: Sucralfate 1gm tab ORAL SCH ×2 (13:00→16:56)
[2019-01-31] MEDS ORDERED: Nitroglycerin Subl 0.4mg tab SL PRN (13:00)
[2019-01-31] MEDS ORDERED: dilTIAZem HCl 25mg/5ml Inj IV PRN (13:00)
[2019-01-31] MEDS ORDERED: Morphine Sulfate 2mg/ml Inj(IV/IM USE ONLY) IVP PRN (13:00)
[2019-01-31] MEDS ORDERED: Miralax 17gm pkt ORAL PRN (13:00)
[2019-01-31] MEDS ORDERED: Albuterol/Ipratropium 3ml neb HHN PRN (13:00)
[2019-01-31] MEDS ORDERED: Enalaprilat 2.5mg/2ml Inj IV PRN (13:00)
--- NOTE | 2019-01-31 15:23 | History & Physical ---
History and Physical History & Physicial Dictated for Int Med-Dr Calvillo no. [id number]. Angus Brooks MD Jan 31, 2019 15:23
[2019-01-31 16:00] VITALS: BP 111/58
--- NOTE | 2019-01-31 16:00 | NUR ---
NURSE NOTES: Patient is resting in bed. Patient denies abdominal pain at this time.
--- NOTE | 2019-01-31 17:15 | History and Physical Report ---
DATE OF ADMISSION: 01/31/2019 CHIEF COMPLAINT: The patient is a 73-year-old female, who presents with a chief complaint of epigastric pain and nausea. HISTORY OF PRESENT ILLNESS: The patient was admitted to [facility] from 12/06/2018 to 12/09/2018. Please see history and physical and discharge summary dictated at that time. The patient presented to [facility] emergency room complaining of a one-day history of epigastric pain. This was associated with nausea. The patient denies vomiting. The patient states pain radiates to her chest. The patient presented to [facility] emergency room. The patient was admitted with epigastric pain and chest pain to rule out acute coronary syndrome. REVIEW OF SYSTEMS: CONSTITUTIONAL: The patient denies weight loss or weight gain. The patient denies fevers or chills. HEENT: The patient denies ear or throat pain. The patient denies headache. CARDIOVASCULAR: The patient complains of chest pain as above. The patient denies palpitations. ABDOMEN: The patient complains of epigastric pain as above. The patient complains of nausea as above. The patient denies vomiting, diarrhea, or constipation. GENITOURINARY: The patient denies dysuria or increased frequency of urination. NEUROMUSCULAR: The patient denies seizures or generalized weakness. PAST MEDICAL HISTORY: Significant for: 1. Gastritis. 2. Gastroesophageal reflux disease. 3. Hiatal hernia. 4. Hypertension. 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 6. Osteoarthritis of the spine. PAST SURGICAL HISTORY: Significant for exploratory laparotomy for tubo-ovarian abscess in 1972. CURRENT MEDICATIONS: 1. Protonix 40 mg p.o. daily. 2. Carafate 1 g p.o. three times daily. 3. Vitamin B12. ALLERGIES: Ibuprofen. SOCIAL HISTORY: The patient is single and lives alone. The patient denies tobacco or alcohol use. PHYSICAL EXAMINATION: VITAL SIGNS: Temperature 97.5, respirations 20, pulse 84, and blood pressure 119/72. Pulse oximetry 98% on room air. GENERAL: The patient is a well-developed and well-nourished female, in no apparent distress. HEENT: Eyes, pupils are equal and responsive to light and accommodation. Extraocular movements are intact. NECK: Supple without lymphadenopathy. CHEST: Lungs are clear to auscultation bilaterally without wheezes or rales. CARDIOVASCULAR: Regular rhythm and rate. S1 and S2 normal without murmurs, rubs, or gallops. ABDOMEN: Soft, tender to palpation in the epigastric region, with decreased bowel sounds. No evidence of hepatosplenomegaly. Currently, no rebound or guarding noted. EXTREMITIES: Negative for clubbing, cyanosis, or edema. RECTAL/GENITAL: Not performed. NEUROLOGICAL: Cranial nerves II through XII are grossly intact without focal deficits. Motor strength is 5/5 bilaterally. Deep tendon reflexes are 2+ plantar. LABORATORY STUDIES: WBC 4.2, hemoglobin 11.4, hematocrit 36.0, and platelets 221,000. Sodium 138, potassium 4.0, chloride 104, CO2 27, BUN 14, and creatinine 0.8. Glucose 86. Troponin 0.0. Chest x-ray is reported as no acute disease. ASSESSMENT: This is a 73-year-old female with: 1. Epigastric pain. 2. Nausea. 3. Chest pain. 4. Gastritis. 5. Gastroesophageal reflux disease. 6. Hypertension. 7. Hiatal hernia. 8. Paget's disease of left femur. 9. Osteoarthritis of the spine. TREATMENT: 1. Epigastric pain/nausea. The patient is currently receiving Zofran intravenously p.r.n. for nausea. A Gastroenterology consultation has been obtained with Dr. Patrick Zheng. We will follow recommendation of Dr. Zheng. 2. Chest pain. Initial troponin level was negative. A Cardiology consultation has been obtained with Dr. Calderon Winters. 3. Gastritis/gastroesophageal reflux disease. Continue Carafate and Protonix as above. 4. Hypertension. The patient is currently not on antihypertensive medication. The patient will be started on intravenous Vasotec and Cardizem as needed for systolic greater than 150 or diastolic greater than 100. 5. Hiatal hernia. 6. Paget's disease of left femur. 7. Osteoarthritis of the spine. Angus Brooks M.D. DR: DEIDRA JOB#: [id number] CC:
--- NOTE | 2019-01-31 18:00 | NUR ---
NURSE NOTES: Called Dr. Zheng's office- Left message for consult.
--- NOTE | 2019-01-31 19:26 | NUR ---
HAND-OFF: Report given to ARIEL Rader.
--- NOTE | 2019-01-31 19:59 | NUR ---
NURSE NOTES: Received pt from ARIEL Moran. Pt awake, alert, and talkative. Bed in lowest position. Call light within reach. Will continue to monitor.
[2019-01-31 20:00] VITALS: BP 130/109
[2019-01-31] MEDS: Heparin 5000 units/ml inj SUBQ SCH (21:51)
[2019-02-01] VITALS: BP 119/55
[2019-02-01 04:00] VITALS: BP 124/67
[2019-02-01 07:07] LABS: INR 0.9 (0.9-1.1)
--- NOTE | 2019-02-01 07:30 | NUR ---
HAND-OFF: Report given to ARIEL Galan. Pt stable.
--- NOTE | 2019-02-01 07:30 | NUR ---
NURSE NOTES: Pt received from ARIEL Rader in stable condition w/no cardiopulmonary distress noted. Pt is awke in bed, AAOx4, noted to be hard of hearing, SR on RA, no skin alterations noted. LH 22g IV noted. Bed in lowest position w/alarm on, side rails up x2, call light within reach. Will continue to monitor.
[2019-02-01 07:36] LABS: BASOPHILS % (AUTO) 1.7 % (0.0-2.0); EOSINOPHILS % (AUTO) 3.8 % (0.0-3.0); HEMATOCRIT 37.1 % (37.0-47.0); HEMOGLOBIN 11.6 G/DL (12.0-16.0); LYMPHOCYTES % (AUTO) 45.1 % (20.0-45.0); MEAN CORPUSCULAR VOLUME 81 FL (80-99); MONOCYTES % (AUTO) 10.1 % (1.0-10.0); NEUTROPHILS % (AUTO) 39.4 % (45.0-75.0); PLATELET COUNT 275 K/UL (150-450); RED BLOOD COUNT 4.57 M/UL (4.20-5.40); RED CELL DISTRIBUTION WIDTH 13.5 % (11.6-14.8); WHITE BLOOD COUNT 4.1 K/UL (4.8-10.8)
--- NOTE | 2019-02-01 07:58 | NUR ---
NURSE NOTES: Pt states she wants to add seafood and gravy to her diet and eliminate any citrus. I informed her that gravy has beef components and she still requested despite stating she does not eat meat. I discussed this with hosiery bagger on the phone and meal plan has been updated.
[2019-02-01 08:00] VITALS: BP 110/51
[2019-02-01] MEDS: Heparin 5000 units/ml inj SUBQ SCH ×2 (08:09→20:31)
[2019-02-01 08:35] LABS: CHOLESTEROL 254 MG/DL (< 200); HDL CHOLESTEROL 88 MG/DL (40-60); TRIGLYCERIDES 109 MG/DL (30-150)
[2019-02-01] MEDS: Sucralfate 1gm tab ORAL SCH ×3 (09:01→17:38)
--- NOTE | 2019-02-01 10:46 | GI Initial Consult Note ---
History of Present Illness General Date patient seen: Feb 01, 2019 Time patient seen: 10:45 Reason for Hospitalization: Abdominal Pain Referring physician: DESTINEY PEDRAZA Reason for Consultation: EPIGASTRIC PAIN Present Illness HPI Patient presents with complaints of initially epigastric pain with increased nausea However later also complains of midsternal pain cramping and sharp Denies any shortness of breath denies any pleurisy denies any back or flank pain denies any fevers patient reports significantly decreased oral intake given the discomfort of her Epigastric area as well Patient was here recently and reports that she had requested medications and refills of her gastric medications however as she felt like there were not improving returns for further evaluation. GI consulted for reported epigastric pain. Patient is known to us, history of hypertension hyperlipidemia, CAD presents today with complaint of epigastric pain. The patient states she takes a Dexilant and Carafate at home, which has had minimal effects. At time of evaluation, the patient had complaint of abdominal discomfort. Denied any epigastric pain. Denied any nausea vomiting constipation or diarrhea. The patient had a endoscopy and colonoscopy earlier this year with a summary of findings noted as below. SUMMARY OF FINDINGS: 1. A 3-cm hiatal hernia. 2. Distal esophageal ring. 3. GE junction was found at about 30 cm from the incisors, so short esophagus. 4. Multiple gastric polyps, most probably fundic gland polyps. 5. Gastritis, status post biopsy. 6. Fair colonic prep without any obvious findings. 7. Internal hemorrhoids. Home Meds Active Scripts Pantoprazole* (PANTOPRAZOLE*) 40 Mg Tablet., 40 MG ORAL DAILY, #60 TAB Prov:Lux Torres MD 01/24/19 Sucralfate* (CARAFATE*) 1 Gm Tablet, 1 GM ORAL TID for 30 Days, TAB 3 Refills Prov:Chano Ling MD 12/08/18 Pantoprazole* (PANTOPRAZOLE*) 40 Mg Tablet., 40 MG ORAL DAILY for 30 Days, TAB 3 Refills Prov:Chano Ling MD 12/08/18 Bisacodyl (DULCOLAX) 10 Mg Supp.rect, 10 MG RECTAL DAILYPRN PRN for 30 Days, SUPP 3 Refills Prov:Chano Ling MD 12/08/18 Al Hydroxide/mg Hydroxide (Mag-Al Plus Suspension) 30 Ml Oral.susp, 30 ML ORAL Q6H PRN for 30 Days, ML 3 Refills Prov:Chano Ling MD 12/08/18 Pantoprazole Sodium (Protonix) 40 Mg Granpkt.dr, 40 MG ORAL DAILY for 30 Days, PKT Prov:Chano Ling MD 08/12/18 Reported Medications [Vit B12] No Conflict Check, PO DAILY 12/07/18 [Mytab Gas] No Conflict Check, 80 MG ORAL TID PRN for Abdominal cramps 11/06/18 Sucralfate* (CARAFATE*) 1 Gm Tablet, 1 GM ORAL TID, TAB 11/06/18 Med list reviewed/reconciled: Yes Allergies: Coded Allergies: Broccoli (Verified Allergy, Unknown, 08/10/18) IBUPROFEN (Verified Allergy, Unknown, 08/10/18) LACTOSE (Verified Allergy, Unknown, 08/10/18) Lactose intolerant MILK (Verified Allergy, Unknown, 08/10/18) ONION (Verified Allergy, Unknown, 08/10/18) ORANGE JUICE (Verified Allergy, Unknown, 08/10/18) TOMATO (Verified Allergy, Unknown, 08/10/18) Patient History History Provided By: Patient, Medical Record Family History Narrative Past Medical History: No History, Except For Hx Cardiac Problems: Yes Hx Hypertension: Yes Hx Pacemaker: No Hx Asthma: No Hx COPD: No Hx Diabetes: No Hx Cancer: No Hx Gastrointestinal Problems: Yes - esophageal ring , gastric polyps Hx Dialysis: No Hx Neurological Problems: No Hx Cerebrovascular Accident: No Hx Seizures: No Social History: Denies: smoking, alcohol use, drug use, other Review of Systems All Other Systems: negative except mentioned in HPI Physical Exam Vital Signs Date Time Temp Pulse Resp B/P (MAP) Pulse Ox O2 Delivery O2 Flow Rate FiO2 01/31/19 09:41 97.5 84 20 119/72 (88) 98 Room Air Sp02 EP Interpretation: reviewed, normal Labs Laboratory Tests Test 01/31/19 14:20 02/01/19 06:27 Troponin I 0.000 ng/mL (0.000-0.056) 0.000 ng/mL (0.000-0.056) White Blood Count 4.1 K/UL (4.8-10.8) L Red Blood Count 4.57 M/UL (4.20-5.40) Hemoglobin 11.6 G/DL (12.0-16.0) L Hematocrit 37.1 % (37.0-47.0) Mean Corpuscular Volume 81 FL (80-99) Mean Corpuscular Hemoglobin 25.3 PG (27.0-31.0) L Mean Corpuscular Hemoglobin Concent 31.2 G/DL (32.0-36.0) L Red Cell Distribution Width 13.5 % (11.6-14.8) Platelet Count 275 K/UL (150-450) Mean Platelet Volume 8.1 FL (6.5-10.1) Neutrophils (%) (Auto) 39.4 % (45.0-75.0) L Lymphocytes (%) (Auto) 45.1 % (20.0-45.0) H Monocytes (%) (Auto) 10.1 % (1.0-10.0) H Eosinophils (%) (Auto) 3.8 % (0.0-3.0) H Basophils (%) (Auto) 1.7 % (0.0-2.0) Prothrombin Time 9.9 SEC (9.30-11.50) Prothromb Time International Ratio 0.9 (0.9-1.1) Activated Partial Thromboplast Time 26 SEC (23-33) C-Reactive Protein, Quantitative 0.8 mg/dL (0.00-0.90) Triglycerides Level 109 MG/DL (30-150) Cholesterol Level 254 MG/DL (< 200) H LDL Cholesterol 134 mg/dL (<100) H HDL Cholesterol 88 MG/DL (40-60) H Cholesterol/HDL Ratio 2.9 (3.3-4.4) L Thyroid Stimulating Hormone (TSH) 2.040 uiU/mL (0.358-3.740) General Appearance: well appearing, no apparent distress, alert Head: normocephalic EENT: PERRL/EOMI, normal ENT inspection Neck: supple Respiratory: normal breath sounds, no respiratory distress Cardiovascular: normal rate Gastrointestinal: normal inspection, non tender, soft, normal bowel sounds, non -distended Rectal: deferred Genitourinary: no CVA tenderness Musculoskeletal: normal inspection, back normal Neurologic: normal inspection, alert, oriented x3, responsive Psychiatric: normal inspection, judgement/insight normal, memory normal Skin: normal inspection, normal color, no rash, warm/dry, palpation normal, well hydrated Lymphatic: normal inspection, no adenopathy Current Medications Current Medications Medications (Trade) Dose Ordered Sig/Radha Route PRN Reason Start Time Stop Time Status Last Admin Dose Admin Acetaminophen (Tylenol) 650 mg Q4H PRN ORAL FEVER 01/31/19 13:00 03/02/19 12:59 Albuterol/ Ipratropium (Albuterol/ Ipratropium) 3 ml Q4H PRN HHN Shortness of Breath 01/31/19 13:00 02/05/19 12:59 Diltiazem HCl (Cardizem) 10 mg Q1H PRN IV heart rate more than 120, 01/31/19 13:00 03/02/19 12:59 Enalaprilat (Vasotec) 2.5 mg Q6H PRN IV sbp more than 160 01/31/19 13:00 03/02/19 12:59 Heparin Sodium (Porcine) (Heparin 5000 units/ml) 5,000 units EVERY 12 HOURS SUBQ 01/31/19 21:00 03/02/19 20:59 02/01/19 08:09 Morphine Sulfate (Morphine Sulfate) 2 mg Q4H PRN IVP severe Pain (Pain Scale 7-10) 01/31/19 13:00 02/07/19 12:59 Nitroglycerin (Ntg) 0.4 mg Q5M PRN SL Prn Chest Pain 01/31/19 13:00 03/02/19 12:59 Ondansetron HCl (Zofran) 4 mg Q6H PRN IVP Nausea & Vomiting 01/31/19 13:00 03/02/19 12:59 Pantoprazole (Protonix) 40 mg DAILY ORAL 02/01/19 09:00 03/03/19 08:59 02/01/19 08:08 Polyethylene Glycol (Miralax) 17 gm DAILYPRN PRN ORAL Constipation 01/31/19 13:00 03/02/19 12:59 Sucralfate (Carafate) 1 gm TID ORAL 01/31/19 13:00 03/02/19 12:59 02/01/19 09:01 Temazepam (Restoril) 15 mg HSPRN PRN ORAL Insomnia 01/31/19 13:00 02/07/19 12:59 GI: Plan Problems: (1) GERD (gastroesophageal reflux disease) (2) Gastroenteritis (3) Hiatal hernia Plan No plans for GI procedures at this time Symptomatic treatment Advance diet as tolerated PPI Add maintenance dose of Carafate Zofran as needed Bowel regimen of Colace and MiraLAX Follow labs Discussed with Dr. Zheng. Thank you for this patient referral, we will follow. The patient was seen and examined at bedside and all new and available data was reviewed in the patients chart. I agree with the above findings, impression and plan. (Patient seen earlier today. Signature stamp does not reflect patient encounter time.). - MD Arlin Kumar Anh-Vinayak ROD Feb 01, 2019 10:46
--- NOTE | 2019-02-01 11:57 | Consultation ---
History of Present Illness General Date patient seen: Feb 01, 2019 Chief Complaint: Abdominal Pain Referring physician: DESTINEY PEDRAZA Reason for Consultation: inpatient management Present Illness HPI 73 year old female with hx of of SBO, gastritis, hiatal hernia, pancreatitis, chronic constipation, CAD, HTN, presented to ER with CC of abdominal pain. She stated that she had upper abdominal pain and she can not take Nexium. She denied chest pain or shortness of breath. she is admitted to telemetry for further evaluation. Allergies: Coded Allergies: Broccoli (Verified Allergy, Unknown, 08/10/18) IBUPROFEN (Verified Allergy, Unknown, 08/10/18) LACTOSE (Verified Allergy, Unknown, 08/10/18) Lactose intolerant MILK (Verified Allergy, Unknown, 08/10/18) ONION (Verified Allergy, Unknown, 08/10/18) ORANGE JUICE (Verified Allergy, Unknown, 08/10/18) TOMATO (Verified Allergy, Unknown, 08/10/18) Medication History Scheduled Pantoprazole Sodium (Protonix), 40 MG ORAL DAILY Pantoprazole* (Pantoprazole*), 40 MG ORAL DAILY Pantoprazole* (Pantoprazole*), 40 MG ORAL DAILY Sucralfate* (Carafate*), 1 GM ORAL TID, (Reported) Sucralfate* (Carafate*), 1 GM ORAL TID [Vit B12], Unknown Dose PO DAILY, (Reported) Scheduled PRN Al Hydroxide/mg Hydroxide (Mag-Al Plus Suspension), 30 ML ORAL Q6H PRN Bisacodyl (Dulcolax), 10 MG RECTAL DAILYPRN PRN [Mytab Gas], 80 MG ORAL TID PRN for Abdominal cramps, (Reported) Patient History Healthcare decision maker N Resuscitation status Advanced Directive on File Past Medical/Surgical History Past Medical/Surgical History: (1) GERD (gastroesophageal reflux disease) (2) HTN (hypertension) (3) Costochondritis (4) SBO (small bowel obstruction) (5) Hiatal hernia Review of Systems All Other Systems: negative except mentioned in HPI Physical Exam General Appearance: WD/WN Lines, tubes and drains: peripheral HEENT: normocephalic, atraumatic Neck: non-tender, normal alignment Respiratory/Chest: chest wall non-tender, lungs clear Cardiovascular/Chest: normal peripheral pulses Abdomen: normal bowel sounds, non tender Genitourinary/Rectal: normal genital exam Extremities: normal range of motion Skin Exam: normal pigmentation Last 24 Hour Vital Signs Date Time Temp Pulse Resp B/P (MAP) Pulse Ox O2 Delivery O2 Flow Rate FiO2 02/01/19 08:00 97.1 87 18 110/51 (70) 96 02/01/19 08:00 76 02/01/19 04:00 68 124/67 (86) 02/01/19 04:00 57 02/01/19 00:00 65 02/01/19 00:00 97.2 68 21 119/55 (76) 97 01/31/19 21:00 Room Air 01/31/19 20:00 70 130/109 (116) 01/31/19 20:00 74 01/31/19 16:00 98.3 72 21 111/58 (75) 99 01/31/19 15:24 77 01/31/19 14:41 Room Air 01/31/19 13:00 97.3 70 22 124/66 (85) 99 Intake and Output 01/31/19 02/01/19 19:00 07:00 Intake Total 240 ml Balance 240 ml Intake Oral 240 ml # Voids 1 4 # Bowel Movements 1 Laboratory Tests Test 01/31/19 14:20 02/01/19 06:27 Troponin I 0.000 ng/mL (0.000-0.056) 0.000 ng/mL (0.000-0.056) White Blood Count 4.1 K/UL (4.8-10.8) L Red Blood Count 4.57 M/UL (4.20-5.40) Hemoglobin 11.6 G/DL (12.0-16.0) L Hematocrit 37.1 % (37.0-47.0) Mean Corpuscular Volume 81 FL (80-99) Mean Corpuscular Hemoglobin 25.3 PG (27.0-31.0) L Mean Corpuscular Hemoglobin Concent 31.2 G/DL (32.0-36.0) L Red Cell Distribution Width 13.5 % (11.6-14.8) Platelet Count 275 K/UL (150-450) Mean Platelet Volume 8.1 FL (6.5-10.1) Neutrophils (%) (Auto) 39.4 % (45.0-75.0) L Lymphocytes (%) (Auto) 45.1 % (20.0-45.0) H Monocytes (%) (Auto) 10.1 % (1.0-10.0) H Eosinophils (%) (Auto) 3.8 % (0.0-3.0) H Basophils (%) (Auto) 1.7 % (0.0-2.0) Prothrombin Time 9.9 SEC (9.30-11.50) Prothromb Time International Ratio 0.9 (0.9-1.1) Activated Partial Thromboplast Time 26 SEC (23-33) C-Reactive Protein, Quantitative 0.8 mg/dL (0.00-0.90) Triglycerides Level 109 MG/DL (30-150) Cholesterol Level 254 MG/DL (< 200) H LDL Cholesterol 134 mg/dL (<100) H HDL Cholesterol 88 MG/DL (40-60) H Cholesterol/HDL Ratio 2.9 (3.3-4.4) L Thyroid Stimulating Hormone (TSH) 2.040 uiU/mL (0.358-3.740) Height (Feet): 5 Height (Inches): 2.00 Weight (Pounds): 164 Medications Current Medications Medications (Trade) Dose Ordered Sig/Radha Route PRN Reason Start Time Stop Time Status Last Admin Dose Admin Acetaminophen (Tylenol) 650 mg Q4H PRN ORAL FEVER 01/31/19 13:00 03/02/19 12:59 Albuterol/ Ipratropium (Albuterol/ Ipratropium) 3 ml Q4H PRN HHN Shortness of Breath 01/31/19 13:00 02/05/19 12:59 Diltiazem HCl (Cardizem) 10 mg Q1H PRN IV heart rate more than 120, 01/31/19 13:00 03/02/19 12:59 Docusate Sodium (Colace) 100 mg TIDPRN PRN ORAL Constipation 02/01/19 12:00 03/03/19 11:59 Docusate Sodium (Colace) 100 mg TWICE A DAY ORAL 02/01/19 18:00 03/03/19 17:59 Enalaprilat (Vasotec) 2.5 mg Q6H PRN IV sbp more than 160 01/31/19 13:00 03/02/19 12:59 Heparin Sodium (Porcine) (Heparin 5000 units/ml) 5,000 units EVERY 12 HOURS SUBQ 01/31/19 21:00 03/02/19 20:59 02/01/19 08:09 Morphine Sulfate (Morphine Sulfate) 2 mg Q4H PRN IVP severe Pain (Pain Scale 7-10) 01/31/19 13:00 02/07/19 12:59 Nitroglycerin (Ntg) 0.4 mg Q5M PRN SL Prn Chest Pain 01/31/19 13:00 03/02/19 12:59 Ondansetron HCl (Zofran) 4 mg Q6H PRN IVP Nausea & Vomiting 01/31/19 13:00 03/02/19 12:59 Pantoprazole (Protonix) 40 mg BID ORAL 02/01/19 18:00 03/03/19 08:59 Polyethylene Glycol (Miralax) 17 gm BEDTIME ORAL 02/01/19 21:00 03/03/19 20:59 Polyethylene Glycol (Miralax) 17 gm DAILYPRN PRN ORAL Constipation 01/31/19 13:00 03/02/19 12:59 Sucralfate (Carafate) 1 gm TID ORAL 01/31/19 13:00 03/02/19 12:59 02/01/19 09:01 Temazepam (Restoril) 15 mg HSPRN PRN ORAL Insomnia 01/31/19 13:00 02/07/19 12:59 Assessment/Plan Problem List: (1) GERD (gastroesophageal reflux disease) ICD Codes: K21.9 - Gastro-esophageal reflux disease without esophagitis SNOMED: 585472788 (2) HTN (hypertension) ICD Codes: I10 - Essential (primary) hypertension SNOMED: 32131658 (3) PUD (peptic ulcer disease) ICD Codes: K27.9 - Peptic ulcer, site unspecified, unspecified as acute or chronic, without hemorrhage or perforation SNOMED: 12698153 (4) Hiatal hernia ICD Codes: K44.9 - Hiatal hernia SNOMED: 23888410 Assessment/Plan: increase Protonix to BID continue Carafate symptomatic treatment pain management f/u GI recommendations dvt prophylaxis. Chano Ling MD Feb 01, 2019 11:57
[2019-02-01 12:00] VITALS: BP 124/70
[2019-02-01] MEDS ORDERED: Docusate 100mg cap ORAL PRN (12:00)
--- NOTE | 2019-02-01 12:46 | Cardiology Report ---
APPROVED REPORT EXAM: Two-dimensional and M-mode echocardiogram with Doppler and color Doppler. INDICATION Left ventricular function M-Mode DIMENSIONS IVSd1.0 (0.7-1.1cm)Left Atrium (MM)3.3 (1.6-4.0cm) LVDd4.0 (3.5-5.6cm)Aortic Root2.9 (2.0-3.7cm) PWd0.9 (0.7-1.1cm)Aortic Cusp Exc.2.0 (1.5-2.0cm) LVDs1.8 (2.5-4.0cm) PWs1.4 cm Normal left ventricular chamber size, systolic function and wall motion. Left ventricular ejection fraction estimated to be 60 %. No evidence of left ventricular hypertrophy. Anterior Echo-free space, may be due to pericardial fat or effusion. All other cardiac chamber sizes are within normal limits. Focal aortic valve sclerosis with adequate cusp excursion. Thickened mitral valve leaflets with normal excursion. Mitral annulus and aortic root calcification. Pulmonic valve not well visualized. Normal tricuspid valve structure. IVC is normal in size with physiological collapse. A color flow and spectral Doppler study was performed and revealed: No aortic regurgitation. Trace mitral regurgitation. Mitral diastolic velocities suggest mild left ventricular diastolic dysfunction (Grade I). Trace tricuspid regurgitation. Tricuspid systolic velocities suggests peak right ventricular systolic pressure of 15 mmHg. Mild pulmonic regurgitation present.
[2019-02-01 16:00] VITALS: BP 113/64
--- NOTE | 2019-02-01 16:49 | NUR ---
CASE MANAGEMENT:REVIEW 73 YR OLD FEMALE FROM HOME TO ER CC: ABDOMINAL PAIN W/NAUSEA.......RAN OUT OF MEDS SI: ACS 97.6 84 20 119/72 98% ON RA TROPONIN(-) IS: 500CC NS BOLUS IV PEPCID PROTONIX PO CHEST XRAY : TO TELEMETRY
[2019-02-01] MEDS: Docusate 100mg cap ORAL SCH (17:38)
--- NOTE | 2019-02-01 18:41 | Cardiology Report ---
APPROVED REPORT EKG Measurement Heart [id number] Normal sinus rhythm Moderate voltage criteria for LVH, may be normal variant Borderline ECG
--- NOTE | 2019-02-01 18:46 | Cardiology Progress Note ---
Assessment/Plan Assessment/Plan atycpical cp likely gi related cad by [facility] 03/2018 at [facility] mild to mod diseae hiatal hernia hs of gastritis pain is atypical not exertional all torp neg despite hours of pain and no st t wave an normal wall motion ? internla hernia as cause of intermittent sx ?? mpi neg 2018 at [facility] will nto pursuit further unless sx description change of any abn of lab testing [id number] Objective Last 24 Hour Vital Signs Date Time Temp Pulse Resp B/P (MAP) Pulse Ox O2 Delivery O2 Flow Rate FiO2 02/01/19 16:00 97.0 78 18 113/64 (80) 98 02/01/19 16:00 76 02/01/19 12:00 97.3 97 20 124/70 (88) 97 02/01/19 12:00 78 02/01/19 09:00 Room Air 02/01/19 08:00 97.1 87 18 110/51 (70) 96 02/01/19 08:00 76 02/01/19 04:00 68 124/67 (86) 02/01/19 04:00 57 02/01/19 00:00 65 02/01/19 00:00 97.2 68 21 119/55 (76) 97 01/31/19 21:00 Room Air 01/31/19 20:00 70 130/109 (116) 01/31/19 20:00 74 Intake and Output 01/31/19 02/01/19 18:59 06:59 Intake Total 240 ml Balance 240 ml Intake Oral 240 ml # Voids 1 4 # Bowel Movements 1 Laboratory Tests Test 02/01/19 06:27 White Blood Count 4.1 K/UL (4.8-10.8) L Red Blood Count 4.57 M/UL (4.20-5.40) Hemoglobin 11.6 G/DL (12.0-16.0) L Hematocrit 37.1 % (37.0-47.0) Mean Corpuscular Volume 81 FL (80-99) Mean Corpuscular Hemoglobin 25.3 PG (27.0-31.0) L Mean Corpuscular Hemoglobin Concent 31.2 G/DL (32.0-36.0) L Red Cell Distribution Width 13.5 % (11.6-14.8) Platelet Count 275 K/UL (150-450) Mean Platelet Volume 8.1 FL (6.5-10.1) Neutrophils (%) (Auto) 39.4 % (45.0-75.0) L Lymphocytes (%) (Auto) 45.1 % (20.0-45.0) H Monocytes (%) (Auto) 10.1 % (1.0-10.0) H Eosinophils (%) (Auto) 3.8 % (0.0-3.0) H Basophils (%) (Auto) 1.7 % (0.0-2.0) Prothrombin Time 9.9 SEC (9.30-11.50) Prothromb Time International Ratio 0.9 (0.9-1.1) Activated Partial Thromboplast Time 26 SEC (23-33) Troponin I 0.000 ng/mL (0.000-0.056) C-Reactive Protein, Quantitative 0.8 mg/dL (0.00-0.90) Triglycerides Level 109 MG/DL (30-150) Cholesterol Level 254 MG/DL (< 200) H LDL Cholesterol 134 mg/dL (<100) H HDL Cholesterol 88 MG/DL (40-60) H Cholesterol/HDL Ratio 2.9 (3.3-4.4) L Thyroid Stimulating Hormone (TSH) 2.040 uiU/mL (0.358-3.740) Calderon Winters MD Feb 01, 2019 18:46
--- NOTE | 2019-02-01 18:49 | Internal Med Progress Note ---
Subjective Date of Service: Feb 01, 2019 Physician Name Brooks,Angus Attending Physician Silvino Calvillo MD Current Medications Medications (Trade) Dose Ordered Sig/Radha Route PRN Reason Start Time Stop Time Status Last Admin Dose Admin Acetaminophen (Tylenol) 650 mg Q4H PRN ORAL FEVER 01/31/19 13:00 03/02/19 12:59 Albuterol/ Ipratropium (Albuterol/ Ipratropium) 3 ml Q4H PRN HHN Shortness of Breath 01/31/19 13:00 02/05/19 12:59 Diltiazem HCl (Cardizem) 10 mg Q1H PRN IV heart rate more than 120, 01/31/19 13:00 03/02/19 12:59 Docusate Sodium (Colace) 100 mg TIDPRN PRN ORAL Constipation 02/01/19 12:00 03/03/19 11:59 Docusate Sodium (Colace) 100 mg TWICE A DAY ORAL 02/01/19 18:00 03/03/19 17:59 02/01/19 17:38 Enalaprilat (Vasotec) 2.5 mg Q6H PRN IV sbp more than 160 01/31/19 13:00 03/02/19 12:59 Heparin Sodium (Porcine) (Heparin 5000 units/ml) 5,000 units EVERY 12 HOURS SUBQ 01/31/19 21:00 03/02/19 20:59 02/01/19 08:09 Morphine Sulfate (Morphine Sulfate) 2 mg Q4H PRN IVP severe Pain (Pain Scale 7-10) 01/31/19 13:00 02/07/19 12:59 Nitroglycerin (Ntg) 0.4 mg Q5M PRN SL Prn Chest Pain 01/31/19 13:00 03/02/19 12:59 Ondansetron HCl (Zofran) 4 mg Q6H PRN IVP Nausea & Vomiting 01/31/19 13:00 03/02/19 12:59 Pantoprazole (Protonix) 40 mg BID ORAL 02/01/19 18:00 03/03/19 08:59 02/01/19 17:38 Polyethylene Glycol (Miralax) 17 gm BEDTIME ORAL 02/01/19 21:00 03/03/19 20:59 Polyethylene Glycol (Miralax) 17 gm DAILYPRN PRN ORAL Constipation 01/31/19 13:00 03/02/19 12:59 Sucralfate (Carafate) 1 gm TID ORAL 01/31/19 13:00 03/02/19 12:59 02/01/19 17:38 Temazepam (Restoril) 15 mg HSPRN PRN ORAL Insomnia 01/31/19 13:00 02/07/19 12:59 Allergies: Coded Allergies: Broccoli (Verified Allergy, Unknown, 08/10/18) IBUPROFEN (Verified Allergy, Unknown, 08/10/18) LACTOSE (Verified Allergy, Unknown, 08/10/18) Lactose intolerant MILK (Verified Allergy, Unknown, 08/10/18) ONION (Verified Allergy, Unknown, 08/10/18) ORANGE JUICE (Verified Allergy, Unknown, 08/10/18) TOMATO (Verified Allergy, Unknown, 08/10/18) ROS Limited/Unobtainable: No Constitutional: Reports: no symptoms HEENT: Reports: no symptoms Cardiovascular: Reports: no symptoms Respiratory: Reports: no symptoms Gastrointestinal/Abdominal: Reports: abdominal pain, nausea Genitourinary: Reports: no symptoms Neurologic/Psychiatric: Reports: no symptoms Subjective 73 YO F admitted with epigastric pain and nausea. Also Chest pain. Cover for Int Rex-Dr Calvillo Objective Last Vital Signs Date Time Temp Pulse Resp B/P (MAP) Pulse Ox O2 Delivery O2 Flow Rate FiO2 02/01/19 16:00 97.0 78 18 113/64 (80) 98 02/01/19 09:00 Room Air Laboratory Tests Test 02/01/19 06:27 White Blood Count 4.1 K/UL (4.8-10.8) L Red Blood Count 4.57 M/UL (4.20-5.40) Hemoglobin 11.6 G/DL (12.0-16.0) L Hematocrit 37.1 % (37.0-47.0) Mean Corpuscular Volume 81 FL (80-99) Mean Corpuscular Hemoglobin 25.3 PG (27.0-31.0) L Mean Corpuscular Hemoglobin Concent 31.2 G/DL (32.0-36.0) L Red Cell Distribution Width 13.5 % (11.6-14.8) Platelet Count 275 K/UL (150-450) Mean Platelet Volume 8.1 FL (6.5-10.1) Neutrophils (%) (Auto) 39.4 % (45.0-75.0) L Lymphocytes (%) (Auto) 45.1 % (20.0-45.0) H Monocytes (%) (Auto) 10.1 % (1.0-10.0) H Eosinophils (%) (Auto) 3.8 % (0.0-3.0) H Basophils (%) (Auto) 1.7 % (0.0-2.0) Prothrombin Time 9.9 SEC (9.30-11.50) Prothromb Time International Ratio 0.9 (0.9-1.1) Activated Partial Thromboplast Time 26 SEC (23-33) Troponin I 0.000 ng/mL (0.000-0.056) C-Reactive Protein, Quantitative 0.8 mg/dL (0.00-0.90) Triglycerides Level 109 MG/DL (30-150) Cholesterol Level 254 MG/DL (< 200) H LDL Cholesterol 134 mg/dL (<100) H HDL Cholesterol 88 MG/DL (40-60) H Cholesterol/HDL Ratio 2.9 (3.3-4.4) L Thyroid Stimulating Hormone (TSH) 2.040 uiU/mL (0.358-3.740) Intake and Output 01/31/19 02/01/19 18:59 06:59 Intake Total 240 ml Balance 240 ml Intake Oral 240 ml # Voids 1 4 # Bowel Movements 1 Objective PHYSICAL EXAMINATION: GENERAL: The patient is a well-developed and well-nourished female, in no apparent distress. HEENT: Eyes, pupils are equal and responsive to light and accommodation. Extraocular movements are intact. NECK: Supple without lymphadenopathy. CHEST: Lungs are clear to auscultation bilaterally without wheezes or rales. CARDIOVASCULAR: Regular rhythm and rate. S1 and S2 normal without murmurs, rubs, or gallops. ABDOMEN: Soft, tender to palpation in the epigastric region, with decreased bowel sounds. No evidence of hepatosplenomegaly. Currently, no rebound or guarding noted. EXTREMITIES: Negative for clubbing, cyanosis, or edema. RECTAL/GENITAL: Not performed. NEUROLOGICAL: Cranial nerves II through XII are grossly intact without focal deficits. Motor strength is 5/5 bilaterally. Deep tendon reflexes are 2+ plantar. Assessment/Plan Assessment/Plan ASSESSMENT: This is a 73-year-old female with: 1. Epigastric pain. 2. Nausea. 3. Chest pain. 4. Gastritis. 5. Gastroesophageal reflux disease. 6. Hypertension. 7. Hiatal hernia. 8. Paget's disease of left femur. 9. Osteoarthritis of the spine. TREATMENT: 1. Epigastric pain/nausea. The patient is currently receiving Zofran intravenously p.r.n. for nausea. A Gastroenterology consultation has been obtained with Dr. Patrick Zheng. We will follow recommendation of Dr. Zheng. No GI procedures are scheduled at this time. Continue carafate and protonix BID 2. Chest pain. Ruled out for acute coronary syndrome; serial troponin levels are negative. A Cardiology consultation has been obtained with Dr. Calderon Winters. 3. Gastritis/gastroesophageal reflux disease. Continue Carafate and Protonix as above. 4. Hypertension. The patient is currently not on antihypertensive medication. The patient will be started on intravenous Vasotec and Cardizem as needed for systolic greater than 150 or diastolic greater than 100. 5. Hiatal hernia. 6. Paget's disease of left femur. 7. Osteoarthritis of the spine. Angus Brooks MD Feb 01, 2019 18:49
[2019-02-01] MEDS ORDERED: SIMETHICONE80 MG ORAL (18:50)
--- NOTE | 2019-02-01 19:13 | NUR ---
HAND-OFF: Report given to ARIEL Samayoa. Pt in stable condition.
--- NOTE | 2019-02-01 19:14 | NUR ---
NURSE NOTES: Received patient awake, lying in semi muller's; resting comfortably. A/O x 4. Denies pain at this time. No signs of acute cardiopulmonary distress noted. Able to make needs known. Checked IV site and flushed. No erythema, bleeding or infiltration noted. Bed at lowest position, brakes on, siderails x3. Call light within reach. Will continue to monitor.
[2019-02-01 20:00] VITALS: BP 108/60
[2019-02-01] MEDS: Miralax 17gm pkt ORAL SCH (20:27)
[2019-02-02] VITALS: BP 110/61
--- NOTE | 2019-02-02 02:02 | NUR ---
NURSE NOTES: Resting throughout the night. No significant change of condition noted. Will continue to monitor.
--- NOTE | 2019-02-02 02:15 | Consultation ---
DATE OF CONSULTATION: 02/01/2019 CARDIOLOGY CONSULTATION CONSULTING PHYSICIAN: Calderon Winters M.D. REFERRING PHYSICIANS: 1. Silvino Calvillo M.D. 2. Angus Brokos M.D. REASON FOR REFERRAL: Chest pain. HISTORY OF PRESENT ILLNESS: This is a 73-year-old female, who gives a history of having recurrent episodes of abdominal pain that radiated up to the chest followed by nausea and vomiting at times. It resolved only by morphine. This has been a recurrent issue for her. She stated that she has had several hospitalizations here and at other hospitals including [facility]. Because of the chest pain, she has apparently undergone a perfusion imaging at [facility] and was subsequently told that that was normal, though she feels that all of her pain is related to her GI. She does not exercise much, but she does walk and she does not have any chest pain during her activity. In fact, the pain usually occurs without activity and it goes on until she gets relief. It feels like a childbirth pain she states and eventually goes away when she gets morphine, but it is recurrent issue. She tries not to come to the hospital she states at the time of the pain onset, she rather wait 3 or 4 hours to see if the pain would get better and never does and she ends up coming into the hospital. She has no shortness of breath unless the pain is severe. There is no PND, although she uses three pillows that is good for her to lay down. There is no lightheadedness on standing. She has occasional palpitations. PAST MEDICAL HISTORY: Positive for history of atypical chest pain, history of gastroesophageal reflux disease, history of labyrinthitis, Paget disease of the bone, hiatal hernia, osteoarthritis, and gastritis. ALLERGIES: She is allergic to weiner leaves, ibuprofen, onions, and she has also lactose intolerance. SOCIAL HISTORY: She does not smoke, never did. Does not drink alcoholic beverages. Does not use drugs. REVIEW OF SYSTEMS: GASTROINTESTINAL: Positive for nausea and vomiting. No bloody or black stool. GENITOURINARY: Negative. PULMONARY: Negative. CONSTITUTIONAL: Negative. NEUROLOGICAL: Negative. PHYSICAL EXAMINATION: GENERAL: Shows to be elderly female, in no respiratory distress. HEENT: Unremarkable. NECK: Supple. No jugular venous distention. LUNGS: Clear to auscultation and percussion. CARDIAC: S1 is normal. S2 is normal. Regular rate and rhythm. No heaves, thrills, or gallops are noted. ABDOMEN: Soft, nontender. Positive bowel sounds. EXTREMITIES: No clubbing or cyanosis, nor is there any edema. NEUROLOGICAL: She is awake, alert, and responsive. MUSCULOSKELETAL: There is no chest wall tenderness on palpation of the chest wall. LABORATORY AND DIAGNOSTIC DATA: White count 4.1, hemoglobin 11.6, and platelet count 275,000. All three troponins were negative. Sodium is 138, potassium 4.0, chloride 104, bicarb 27, BUN 14, and creatinine 0.8. Glucose is 86. Liver function tests are normal. CRP of 0.4. Total cholesterol 254 with LDL of 134 and HDL of 88. TSH of 2.04. Lipase is 208. Coags, INR 0.9 and PTT of 26. A chest x-ray performed today shows no acute findings. An echocardiogram that was performed today shows normal left ventricular systolic function. Ejection fraction of 60% and no significant valvular regurgitation. [facility] data was reviewed. The patient has had myocardial perfusion imaging performed on 09/07/2018 that was actually no evidence of reversible defect noted. In fact she has had a CT coronary angiogram performed in March of 2018 showing 1% to 24% left main, circumflex 1% to 24%, proximal 1% to 24%, 24% mid and RCA of 25% to 50% proximal and 1% to 24% mid and distal disease. The patient's electrocardiogram shows normal sinus rhythm, normal QRS axis, no ST or T-wave abnormalities. ASSESSMENT AND PLAN: 1. Atypical chest pain, likely GI related. 2. Coronary artery disease by CT coronary angiography in March 2018 at [facility]. 3. Hiatal hernia. 4. History of gastritis. Dr. Brooks and Dr. Ling, this patient was seen in cardiac consultation. The patient is really atypical, not exertional related. All the cardiac enzymes are normal despite hours of the pain that she has been experiencing and her EKG, echocardiogram shows no evidence of any abnormalities or wall motion or ST or T-wave abnormalities. In that regard with the description of the patient's pain that she provides, this is not felt to be a cardiac in origin. The pain is likely related to GI issues including the possibilities of hiatal hernia based on the description of cramping pain, but that will be at the discretion of the homeland security program specialist who is following her. Her myocardial perfusion exam was negative at [facility] in 2018 and unless she has some changes description of her symptoms in relieving and exacerbating factors or EKG changes, or cardiac enzyme test or echocardiogram abnormalities I will probably not pursue any further cardiac testing. Calderon Winters M.D. DR: DANA JOB#: [id number] CC:
[2019-02-02 04:00] VITALS: BP 106/58
[2019-02-02 07:02] LABS: ANION GAP 9 mmol/L (5-15); BLOOD UREA NITROGEN 15 mg/dL (7-18); CALCIUM 9.3 MG/DL (8.5-10.1); CARBON DIOXIDE 26 MMOL/L (21-32); CHLORIDE 105 MMOL/L (98-107); CREATININE 0.7 MG/DL (0.55-1.30); POTASSIUM 3.9 MMOL/L (3.5-5.1); SODIUM 140 MMOL/L (136-145)
[2019-02-02 07:19] LABS: BASOPHILS % (AUTO) 1.6 % (0.0-2.0); EOSINOPHILS % (AUTO) 3.2 % (0.0-3.0); HEMOGLOBIN 10.3 G/DL (12.0-16.0); LYMPHOCYTES % (AUTO) 37.1 % (20.0-45.0); MEAN CORPUSCULAR VOLUME 83 FL (80-99); MONOCYTES % (AUTO) 9.1 % (1.0-10.0); NEUTROPHILS % (AUTO) 49.1 % (45.0-75.0); PLATELET COUNT 208 K/UL (150-450); RED BLOOD COUNT 3.99 M/UL (4.20-5.40); RED CELL DISTRIBUTION WIDTH 12.9 % (11.6-14.8); WHITE BLOOD COUNT 3.7 K/UL (4.8-10.8)
--- NOTE | 2019-02-02 07:35 | NUR ---
NURSE NOTES: Report received from ARIEL Samayoa. Pt. in the restroom at this time, replied she's ok. White board updated. Room made free of clutter. Will check back.
--- NOTE | 2019-02-02 07:50 | NUR ---
HAND-OFF: Report given to ARIEL Galvin. Plan of care endorsed.
[2019-02-02 08:00] VITALS: BP 119/68
[2019-02-02] MEDS: Sucralfate 1gm tab ORAL SCH ×3 (08:46→18:04)
[2019-02-02] MEDS: Docusate 100mg cap ORAL SCH ×2 (08:48→18:04)
[2019-02-02] MEDS: Heparin 5000 units/ml inj SUBQ SCH ×2 (08:51→20:58)
--- NOTE | 2019-02-02 10:25 | GI Progress Note ---
Assessment/Plan Problems: (1) Constipation ICD Codes: K59.00 - Constipation, unspecified SNOMED: 92202220 (2) GERD (gastroesophageal reflux disease) ICD Codes: K21.9 - Gastro-esophageal reflux disease without esophagitis SNOMED: 899670671 (3) HTN (hypertension) ICD Codes: I10 - Essential (primary) hypertension SNOMED: 95050421 (4) PUD (peptic ulcer disease) ICD Codes: K27.9 - Peptic ulcer, site unspecified, unspecified as acute or chronic, without hemorrhage or perforation SNOMED: 20438247 (5) Gastroenteritis ICD Codes: K52.9 - Noninfective gastroenteritis and colitis, unspecified SNOMED: 88324977 (6) Hiatal hernia ICD Codes: K44.9 - Hiatal hernia SNOMED: 01774858 Status: stable Status Narrative Discussed with Dr. Zheng. Assessment/Plan No plans for GI procedures at this time Symptomatic treatment Advance diet as tolerated PPI Add maintenance dose of Carafate Zofran as needed Bowel regimen of Colace and MiraLAX Follow labs The patient was seen and examined at bedside and all new and available data was reviewed in the patients chart. I agree with the above findings, impression and plan. (Patient seen earlier today. Signature stamp does not reflect patient encounter time.). - Patrick Zheng MD Subjective Subjective abdominal pain improved after medication administration Objective Last 24 Hour Vital Signs Date Time Temp Pulse Resp B/P (MAP) Pulse Ox O2 Delivery O2 Flow Rate FiO2 02/02/19 08:00 76 02/02/19 08:00 97.2 78 18 119/68 (85) 98 02/02/19 04:00 96.5 79 19 106/58 (74) 96 02/02/19 04:00 68 02/02/19 00:00 97.9 78 18 110/61 (77) 96 02/02/19 00:00 81 02/01/19 21:00 Room Air 02/01/19 20:00 97.6 87 20 108/60 (76) 98 02/01/19 20:00 95 02/01/19 16:00 97.0 78 18 113/64 (80) 98 02/01/19 16:00 76 02/01/19 12:00 97.3 97 20 124/70 (88) 97 02/01/19 12:00 78 Intake and Output 02/01/19 02/02/19 19:00 07:00 Intake Total 360 ml 120 ml Balance 360 ml 120 ml Intake Oral 360 ml 120 ml # Voids 8 # Bowel Movements 2 Laboratory Tests Test 02/02/19 06:23 White Blood Count 3.7 K/UL (4.8-10.8) L Red Blood Count 3.99 M/UL (4.20-5.40) L Hemoglobin 10.3 G/DL (12.0-16.0) L Hematocrit 33.0 % (37.0-47.0) L Mean Corpuscular Volume 83 FL (80-99) Mean Corpuscular Hemoglobin 25.9 PG (27.0-31.0) L Mean Corpuscular Hemoglobin Concent 31.3 G/DL (32.0-36.0) L Red Cell Distribution Width 12.9 % (11.6-14.8) Platelet Count 208 K/UL (150-450) Mean Platelet Volume 8.4 FL (6.5-10.1) Neutrophils (%) (Auto) 49.1 % (45.0-75.0) Lymphocytes (%) (Auto) 37.1 % (20.0-45.0) Monocytes (%) (Auto) 9.1 % (1.0-10.0) Eosinophils (%) (Auto) 3.2 % (0.0-3.0) H Basophils (%) (Auto) 1.6 % (0.0-2.0) Sodium Level 140 MMOL/L (136-145) Potassium Level 3.9 MMOL/L (3.5-5.1) Chloride Level 105 MMOL/L (98-107) Carbon Dioxide Level 26 MMOL/L (21-32) Anion Gap 9 mmol/L (5-15) Blood Urea Nitrogen 15 mg/dL (7-18) Creatinine 0.7 MG/DL (0.55-1.30) Estimat Glomerular Filtration Rate mL/min (>60) Glucose Level 90 MG/DL (74-106) Calcium Level 9.3 MG/DL (8.5-10.1) Troponin I 0.000 ng/mL (0.000-0.056) Height (Feet): 5 Height (Inches): 2.00 Weight (Pounds): 164 General Appearance: WD/WN, no apparent distress, alert Cardiovascular: normal rate Respiratory/Chest: normal breath sounds, no respiratory distress Abdominal Exam: normal bowel sounds, non tender, soft Extremities: normal range of motion, non-tender Rodri Oliveros NP Feb 02, 2019 10:25
--- NOTE | 2019-02-02 11:18 | Pulmonology Progress Note ---
Assessment/Plan Problems: (1) GERD (gastroesophageal reflux disease) (2) HTN (hypertension) (3) PUD (peptic ulcer disease) (4) Hiatal hernia Assessment/Plan doing better symptomatic treatment monitor BP dc planning she wants a medication that works for her illness. Subjective Interval Events: feeling better, Allergies: Coded Allergies: Broccoli (Verified Allergy, Unknown, 08/10/18) IBUPROFEN (Verified Allergy, Unknown, 08/10/18) LACTOSE (Verified Allergy, Unknown, 08/10/18) Lactose intolerant MILK (Verified Allergy, Unknown, 08/10/18) ONION (Verified Allergy, Unknown, 08/10/18) ORANGE JUICE (Verified Allergy, Unknown, 08/10/18) TOMATO (Verified Allergy, Unknown, 08/10/18) Objective Last 24 Hour Vital Signs Date Time Temp Pulse Resp B/P (MAP) Pulse Ox O2 Delivery O2 Flow Rate FiO2 02/02/19 09:00 Room Air 02/02/19 08:00 76 02/02/19 08:00 97.2 78 18 119/68 (85) 98 02/02/19 04:00 96.5 79 19 106/58 (74) 96 02/02/19 04:00 68 02/02/19 00:00 97.9 78 18 110/61 (77) 96 02/02/19 00:00 81 02/01/19 21:00 Room Air 02/01/19 20:00 97.6 87 20 108/60 (76) 98 02/01/19 20:00 95 02/01/19 16:00 97.0 78 18 113/64 (80) 98 02/01/19 16:00 76 02/01/19 12:00 97.3 97 20 124/70 (88) 97 02/01/19 12:00 78 Intake and Output 02/01/19 02/02/19 19:00 07:00 Intake Total 360 ml 120 ml Balance 360 ml 120 ml Intake Oral 360 ml 120 ml # Voids 8 # Bowel Movements 2 General Appearance: WD/WN HEENT: normocephalic Respiratory/Chest: chest wall non-tender, lungs clear Breasts: no masses Cardiovascular: normal peripheral pulses, normal rate Abdomen: normal bowel sounds, soft, non tender Skin: no rash 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 Lymphatic: no neck adenopathy Laboratory Tests 02/02/19 06:23: White Blood Count 3.7L, Red Blood Count 3.99L, Hemoglobin 10.3L, Hematocrit 33.0L, Mean Corpuscular Volume 83, Mean Corpuscular Hemoglobin 25.9L, Mean Corpuscular Hemoglobin Concent 31.3L, Red Cell Distribution Width 12.9, Platelet Count 208, Mean Platelet Volume 8.4, Neutrophils (%) (Auto) 49.1, Lymphocytes (%) (Auto) 37.1, Monocytes (%) (Auto) 9.1, Eosinophils (%) (Auto) 3.2H, Basophils (%) (Auto) 1.6, Sodium Level 140, Potassium Level 3.9, Chloride Level 105, Carbon Dioxide Level 26, Anion Gap 9, Blood Urea Nitrogen 15, Creatinine 0.7, Estimat Glomerular Filtration Rate , Glucose Level 90, Calcium Level 9.3, Troponin I 0.000 Current Medications Medications (Trade) Dose Ordered Sig/Radha Route PRN Reason Start Time Stop Time Status Last Admin Dose Admin Acetaminophen (Tylenol) 650 mg Q4H PRN ORAL FEVER 01/31/19 13:00 03/02/19 12:59 Albuterol/ Ipratropium (Albuterol/ Ipratropium) 3 ml Q4H PRN HHN Shortness of Breath 01/31/19 13:00 02/05/19 12:59 Diltiazem HCl (Cardizem) 10 mg Q1H PRN IV heart rate more than 120, 01/31/19 13:00 03/02/19 12:59 Docusate Sodium (Colace) 100 mg TIDPRN PRN ORAL Constipation 02/01/19 12:00 03/03/19 11:59 Docusate Sodium (Colace) 100 mg TWICE A DAY ORAL 02/01/19 18:00 03/03/19 17:59 02/02/19 08:48 Enalaprilat (Vasotec) 2.5 mg Q6H PRN IV sbp more than 160 01/31/19 13:00 03/02/19 12:59 Heparin Sodium (Porcine) (Heparin 5000 units/ml) 5,000 units EVERY 12 HOURS SUBQ 01/31/19 21:00 03/02/19 20:59 02/02/19 08:51 Morphine Sulfate (Morphine Sulfate) 2 mg Q4H PRN IVP severe Pain (Pain Scale 7-10) 01/31/19 13:00 02/07/19 12:59 Nitroglycerin (Ntg) 0.4 mg Q5M PRN SL Prn Chest Pain 01/31/19 13:00 03/02/19 12:59 Ondansetron HCl (Zofran) 4 mg Q6H PRN IVP Nausea & Vomiting 01/31/19 13:00 03/02/19 12:59 Pantoprazole (Protonix) 40 mg BID ORAL 02/01/19 18:00 03/03/19 08:59 02/02/19 08:45 Polyethylene Glycol (Miralax) 17 gm BEDTIME ORAL 02/01/19 21:00 03/03/19 20:59 02/01/19 20:27 Polyethylene Glycol (Miralax) 17 gm DAILYPRN PRN ORAL Constipation 01/31/19 13:00 03/02/19 12:59 Sucralfate (Carafate) 1 gm TID ORAL 01/31/19 13:00 03/02/19 12:59 02/02/19 08:46 Temazepam (Restoril) 15 mg HSPRN PRN ORAL Insomnia 01/31/19 13:00 02/07/19 12:59 Chano Ling MD Feb 02, 2019 11:18
[2019-02-02 12:00] VITALS: BP 105/57
[2019-02-02 16:00] VITALS: BP 108/54
--- NOTE | 2019-02-02 16:54 | Internal Med Progress Note ---
Subjective Date of Service: Feb 02, 2019 Physician Name Brooks,Angus Attending Physician Silvino Calvillo MD Current Medications Medications (Trade) Dose Ordered Sig/Radha Route PRN Reason Start Time Stop Time Status Last Admin Dose Admin Acetaminophen (Tylenol) 650 mg Q4H PRN ORAL FEVER 01/31/19 13:00 03/02/19 12:59 Albuterol/ Ipratropium (Albuterol/ Ipratropium) 3 ml Q4H PRN HHN Shortness of Breath 01/31/19 13:00 02/05/19 12:59 Diltiazem HCl (Cardizem) 10 mg Q1H PRN IV heart rate more than 120, 01/31/19 13:00 03/02/19 12:59 Docusate Sodium (Colace) 100 mg TIDPRN PRN ORAL Constipation 02/01/19 12:00 03/03/19 11:59 Docusate Sodium (Colace) 100 mg TWICE A DAY ORAL 02/01/19 18:00 03/03/19 17:59 02/02/19 08:48 Enalaprilat (Vasotec) 2.5 mg Q6H PRN IV sbp more than 160 01/31/19 13:00 03/02/19 12:59 Heparin Sodium (Porcine) (Heparin 5000 units/ml) 5,000 units EVERY 12 HOURS SUBQ 01/31/19 21:00 03/02/19 20:59 02/02/19 08:51 Morphine Sulfate (Morphine Sulfate) 2 mg Q4H PRN IVP severe Pain (Pain Scale 7-10) 01/31/19 13:00 02/07/19 12:59 Nitroglycerin (Ntg) 0.4 mg Q5M PRN SL Prn Chest Pain 01/31/19 13:00 03/02/19 12:59 Ondansetron HCl (Zofran) 4 mg Q6H PRN IVP Nausea & Vomiting 01/31/19 13:00 03/02/19 12:59 Pantoprazole (Protonix) 40 mg BID ORAL 02/01/19 18:00 03/03/19 08:59 02/02/19 08:45 Polyethylene Glycol (Miralax) 17 gm BEDTIME ORAL 02/01/19 21:00 03/03/19 20:59 02/01/19 20:27 Polyethylene Glycol (Miralax) 17 gm DAILYPRN PRN ORAL Constipation 01/31/19 13:00 03/02/19 12:59 Sucralfate (Carafate) 1 gm TID ORAL 01/31/19 13:00 03/02/19 12:59 02/02/19 13:23 Temazepam (Restoril) 15 mg HSPRN PRN ORAL Insomnia 01/31/19 13:00 02/07/19 12:59 Allergies: Coded Allergies: Broccoli (Verified Allergy, Unknown, 08/10/18) IBUPROFEN (Verified Allergy, Unknown, 08/10/18) LACTOSE (Verified Allergy, Unknown, 08/10/18) Lactose intolerant MILK (Verified Allergy, Unknown, 08/10/18) ONION (Verified Allergy, Unknown, 08/10/18) ORANGE JUICE (Verified Allergy, Unknown, 08/10/18) TOMATO (Verified Allergy, Unknown, 08/10/18) ROS Limited/Unobtainable: No Constitutional: Reports: no symptoms HEENT: Reports: no symptoms Cardiovascular: Reports: no symptoms Respiratory: Reports: no symptoms Gastrointestinal/Abdominal: Reports: no symptoms Genitourinary: Reports: no symptoms Neurologic/Psychiatric: Reports: no symptoms Subjective 73 YO F admitted with epigastric pain and nausea. Also Chest pain. Cover for Int Rex-Dr Calvillo Objective Last Vital Signs Date Time Temp Pulse Resp B/P (MAP) Pulse Ox O2 Delivery O2 Flow Rate FiO2 02/02/19 12:00 76 02/02/19 12:00 97.3 20 105/57 (73) 97 02/02/19 09:00 Room Air Laboratory Tests Test 02/02/19 06:23 White Blood Count 3.7 K/UL (4.8-10.8) L Red Blood Count 3.99 M/UL (4.20-5.40) L Hemoglobin 10.3 G/DL (12.0-16.0) L Hematocrit 33.0 % (37.0-47.0) L Mean Corpuscular Volume 83 FL (80-99) Mean Corpuscular Hemoglobin 25.9 PG (27.0-31.0) L Mean Corpuscular Hemoglobin Concent 31.3 G/DL (32.0-36.0) L Red Cell Distribution Width 12.9 % (11.6-14.8) Platelet Count 208 K/UL (150-450) Mean Platelet Volume 8.4 FL (6.5-10.1) Neutrophils (%) (Auto) 49.1 % (45.0-75.0) Lymphocytes (%) (Auto) 37.1 % (20.0-45.0) Monocytes (%) (Auto) 9.1 % (1.0-10.0) Eosinophils (%) (Auto) 3.2 % (0.0-3.0) H Basophils (%) (Auto) 1.6 % (0.0-2.0) Sodium Level 140 MMOL/L (136-145) Potassium Level 3.9 MMOL/L (3.5-5.1) Chloride Level 105 MMOL/L (98-107) Carbon Dioxide Level 26 MMOL/L (21-32) Anion Gap 9 mmol/L (5-15) Blood Urea Nitrogen 15 mg/dL (7-18) Creatinine 0.7 MG/DL (0.55-1.30) Estimat Glomerular Filtration Rate mL/min (>60) Glucose Level 90 MG/DL (74-106) Calcium Level 9.3 MG/DL (8.5-10.1) Troponin I 0.000 ng/mL (0.000-0.056) Intake and Output 02/01/19 02/02/19 19:00 07:00 Intake Total 360 ml 120 ml Balance 360 ml 120 ml Intake Oral 360 ml 120 ml # Voids 8 # Bowel Movements 2 Objective PHYSICAL EXAMINATION: GENERAL: The patient is a well-developed and well-nourished female, in no apparent distress. HEENT: Eyes, pupils are equal and responsive to light and accommodation. Extraocular movements are intact. NECK: Supple without lymphadenopathy. CHEST: Lungs are clear to auscultation bilaterally without wheezes or rales. CARDIOVASCULAR: Regular rhythm and rate. S1 and S2 normal without murmurs, rubs, or gallops. ABDOMEN: Soft, tender to palpation in the epigastric region, with decreased bowel sounds. No evidence of hepatosplenomegaly. Currently, no rebound or guarding noted. EXTREMITIES: Negative for clubbing, cyanosis, or edema. RECTAL/GENITAL: Not performed. NEUROLOGICAL: Cranial nerves II through XII are grossly intact without focal deficits. Motor strength is 5/5 bilaterally. Deep tendon reflexes are 2+ plantar. Assessment/Plan Assessment/Plan ASSESSMENT: This is a 73-year-old female with: 1. Epigastric pain. 2. Nausea. 3. Chest pain. 4. Gastritis. 5. Gastroesophageal reflux disease. 6. Hypertension. 7. Hiatal hernia. 8. Paget's disease of left femur. 9. Osteoarthritis of the spine. TREATMENT: 1. Epigastric pain/nausea. The patient is currently receiving Zofran intravenously p.r.n. for nausea. A Gastroenterology consultation has been obtained with Dr. Patrick Zheng. We will follow recommendation of Dr. Zheng. No GI procedures are scheduled at this time. Continue carafate and protonix BID 2. Chest pain. Ruled out for acute coronary syndrome; serial troponin levels are negative. A Cardiology consultation has been obtained with Dr. Calderon Winters. 3. Gastritis/gastroesophageal reflux disease. Continue Carafate and Protonix as above. 4. Hypertension. The patient is currently not on antihypertensive medication. The patient will be started on intravenous Vasotec and Cardizem as needed for systolic greater than 150 or diastolic greater than 100. 5. Hiatal hernia. 6. Paget's disease of left femur. 7. Osteoarthritis of the spine. 8. Discharge planning Angus Brooks MD Feb 02, 2019 16:54
--- NOTE | 2019-02-02 18:44 | Cardiology Progress Note ---
Assessment/Plan Assessment/Plan 1. Atypical chest pain, likely GI related. 2. Coronary artery disease by CT coronary angiography in March 2018 at [facility]. 3. Hiatal hernia. 4. History of gastritis. all torp neg no further cardaic testing at this selena eunless change in status gi [facility] inplanned Subjective Cardiovascular: Denies: chest pain, lightheadedness, palpitations Respiratory: Denies: shortness of breath Gastrointestinal/Abdominal: Denies: abdominal pain Genitourinary: Denies: burning Objective Last 24 Hour Vital Signs Date Time Temp Pulse Resp B/P (MAP) Pulse Ox O2 Delivery O2 Flow Rate FiO2 02/02/19 16:00 87 02/02/19 16:00 97.5 78 18 108/54 (72) 96 02/02/19 12:00 76 02/02/19 12:00 97.3 67 20 105/57 (73) 97 02/02/19 09:00 Room Air 02/02/19 08:00 76 02/02/19 08:00 97.2 78 18 119/68 (85) 98 02/02/19 04:00 96.5 79 19 106/58 (74) 96 02/02/19 04:00 68 02/02/19 00:00 97.9 78 18 110/61 (77) 96 02/02/19 00:00 81 02/01/19 21:00 Room Air 02/01/19 20:00 97.6 87 20 108/60 (76) 98 02/01/19 20:00 95 General Appearance: no apparent distress, alert Neck: supple Cardiovascular: normal rate Respiratory/Chest: lungs clear Abdomen: normal bowel sounds, non tender, soft Extremities: no swelling Intake and Output 02/01/19 02/02/19 19:00 07:00 Intake Total 360 ml 120 ml Balance 360 ml 120 ml Intake Oral 360 ml 120 ml # Voids 8 # Bowel Movements 2 Laboratory Tests Test 02/02/19 06:23 White Blood Count 3.7 K/UL (4.8-10.8) L Red Blood Count 3.99 M/UL (4.20-5.40) L Hemoglobin 10.3 G/DL (12.0-16.0) L Hematocrit 33.0 % (37.0-47.0) L Mean Corpuscular Volume 83 FL (80-99) Mean Corpuscular Hemoglobin 25.9 PG (27.0-31.0) L Mean Corpuscular Hemoglobin Concent 31.3 G/DL (32.0-36.0) L Red Cell Distribution Width 12.9 % (11.6-14.8) Platelet Count 208 K/UL (150-450) Mean Platelet Volume 8.4 FL (6.5-10.1) Neutrophils (%) (Auto) 49.1 % (45.0-75.0) Lymphocytes (%) (Auto) 37.1 % (20.0-45.0) Monocytes (%) (Auto) 9.1 % (1.0-10.0) Eosinophils (%) (Auto) 3.2 % (0.0-3.0) H Basophils (%) (Auto) 1.6 % (0.0-2.0) Sodium Level 140 MMOL/L (136-145) Potassium Level 3.9 MMOL/L (3.5-5.1) Chloride Level 105 MMOL/L (98-107) Carbon Dioxide Level 26 MMOL/L (21-32) Anion Gap 9 mmol/L (5-15) Blood Urea Nitrogen 15 mg/dL (7-18) Creatinine 0.7 MG/DL (0.55-1.30) Estimat Glomerular Filtration Rate mL/min (>60) Glucose Level 90 MG/DL (74-106) Calcium Level 9.3 MG/DL (8.5-10.1) Troponin I 0.000 ng/mL (0.000-0.056) Calderon Winters MD Feb 02, 2019 18:44
--- NOTE | 2019-02-02 19:51 | NUR ---
HAND-OFF: Report given to ARIEL Christianson. Pt. in stable condition. Plan of care endorsed.
--- NOTE | 2019-02-02 19:52 | NUR ---
NURSE NOTES: Report received from Kamar GEORGE. Patient in bed, awake and resting, in no acute distress. L hand Saline lock patent. Will continue plan of care.
[2019-02-02 20:00] VITALS: BP 103/59
[2019-02-02] MEDS: Miralax 17gm pkt ORAL SCH (20:59)
[2019-02-03] VITALS (7 sets, daily range): BP systolic 106–133; BP diastolic 61–84
--- NOTE | 2019-02-03 07:25 | NUR ---
NURSE NOTES: Report received from ARIEL Edwards. Patient AOx4. In RA. Denies any pain or SOB. No IV access. Pt. refused for another IV unless IV medication order. Bed on lowest position, side rails upx2, brakes engaged. Call light within easy reach.
--- NOTE | 2019-02-03 07:27 | NUR ---
HAND-OFF: Report given to ARIEL Galvin. Patient in stable condition.
[2019-02-03 07:29] LABS: BASOPHILS % (AUTO) 1.6 % (0.0-2.0); EOSINOPHILS % (AUTO) 2.8 % (0.0-3.0); HEMATOCRIT 38.3 % (37.0-47.0); HEMOGLOBIN 11.8 G/DL (12.0-16.0); LYMPHOCYTES % (AUTO) 42.7 % (20.0-45.0); MEAN CORPUSCULAR VOLUME 81 FL (80-99); PLATELET COUNT 280 K/UL (150-450); RED BLOOD COUNT 4.74 M/UL (4.20-5.40); RED CELL DISTRIBUTION WIDTH 13.6 % (11.6-14.8); WHITE BLOOD COUNT 4.4 K/UL (4.8-10.8)
[2019-02-03 07:43] LABS: ANION GAP 11 mmol/L (5-15); BLOOD UREA NITROGEN 17 mg/dL (7-18); CARBON DIOXIDE 25 MMOL/L (21-32); CHLORIDE 103 MMOL/L (98-107); CREATININE 0.9 MG/DL (0.55-1.30); POTASSIUM 4.5 MMOL/L (3.5-5.1); SODIUM 139 MMOL/L (136-145)
[2019-02-03] MEDS: Heparin 5000 units/ml inj SUBQ SCH ×3 (09:00→21:00)
[2019-02-03] MEDS: Sucralfate 1gm tab ORAL SCH ×3 (09:13→18:07)
[2019-02-03] MEDS: Docusate 100mg cap ORAL SCH ×2 (09:13→18:07)
--- NOTE | 2019-02-03 11:38 | Pulmonology Progress Note ---
Assessment/Plan Problems: (1) GERD (gastroesophageal reflux disease) (2) HTN (hypertension) (3) PUD (peptic ulcer disease) (4) Hiatal hernia Assessment/Plan abd us pending doing better symptomatic treatment monitor BP dc planning she wants a medication that works for her illness. Subjective ROS Limited/Unobtainable: No Interval Events: feeling better Constitutional: Reports: no symptoms Allergies: Coded Allergies: Broccoli (Verified Allergy, Unknown, 08/10/18) IBUPROFEN (Verified Allergy, Unknown, 08/10/18) LACTOSE (Verified Allergy, Unknown, 08/10/18) Lactose intolerant MILK (Verified Allergy, Unknown, 08/10/18) ONION (Verified Allergy, Unknown, 08/10/18) ORANGE JUICE (Verified Allergy, Unknown, 08/10/18) TOMATO (Verified Allergy, Unknown, 08/10/18) Objective Last 24 Hour Vital Signs Date Time Temp Pulse Resp B/P (MAP) Pulse Ox O2 Delivery O2 Flow Rate FiO2 02/03/19 09:00 Room Air 02/03/19 08:00 97.2 79 20 120/66 (84) 97 02/03/19 08:00 86 02/03/19 04:00 66 02/03/19 00:00 97.2 75 19 106/61 (76) 98 02/03/19 00:00 75 02/02/19 21:00 Room Air 02/02/19 20:00 98.1 81 19 103/59 (74) 98 02/02/19 20:00 81 02/02/19 16:00 87 02/02/19 16:00 97.5 78 18 108/54 (72) 96 02/02/19 12:00 76 02/02/19 12:00 97.3 67 20 105/57 (73) 97 Intake and Output 02/02/19 02/03/19 19:00 07:00 Intake Total 360 ml Balance 360 ml Intake Oral 360 ml # Voids 4 6 # Bowel Movements 2 General Appearance: WD/WN HEENT: normocephalic, atraumatic Respiratory/Chest: chest wall non-tender, lungs clear Cardiovascular: normal peripheral pulses, normal rate Abdomen: normal bowel sounds, soft, non tender Genitourinary: normal external genitalia Extremities: no cyanosis, no clubbing Skin: no rash Lymphatic: no neck adenopathy Laboratory Tests 02/03/19 07:10: White Blood Count 4.4L, Red Blood Count 4.74, Hemoglobin 11.8L, Hematocrit 38.3 , Mean Corpuscular Volume 81, Mean Corpuscular Hemoglobin 24.9L, Mean Corpuscular Hemoglobin Concent 30.9L, Red Cell Distribution Width 13.6, Platelet Count 280, Mean Platelet Volume 7.6, Neutrophils (%) (Auto) 44.0L, Lymphocytes (%) (Auto) 42.7, Monocytes (%) (Auto) 9.0, Eosinophils (%) (Auto) 2.8, Basophils (%) (Auto) 1.6, Sodium Level 139, Potassium Level 4.5, Chloride Level 103, Carbon Dioxide Level 25, Anion Gap 11, Blood Urea Nitrogen 17, Creatinine 0.9, Estimat Glomerular Filtration Rate , Glucose Level 108H, Calcium Level 10.0 Current Medications Medications (Trade) Dose Ordered Sig/Radha Route PRN Reason Start Time Stop Time Status Last Admin Dose Admin Acetaminophen (Tylenol) 650 mg Q4H PRN ORAL FEVER 01/31/19 13:00 03/02/19 12:59 Albuterol/ Ipratropium (Albuterol/ Ipratropium) 3 ml Q4H PRN HHN Shortness of Breath 01/31/19 13:00 02/05/19 12:59 Diltiazem HCl (Cardizem) 10 mg Q1H PRN IV heart rate more than 120, 01/31/19 13:00 03/02/19 12:59 Docusate Sodium (Colace) 100 mg TIDPRN PRN ORAL Constipation 02/01/19 12:00 03/03/19 11:59 Docusate Sodium (Colace) 100 mg TWICE A DAY ORAL 02/01/19 18:00 03/03/19 17:59 02/03/19 09:13 Enalaprilat (Vasotec) 2.5 mg Q6H PRN IV sbp more than 160 01/31/19 13:00 03/02/19 12:59 Heparin Sodium (Porcine) (Heparin 5000 units/ml) 5,000 units EVERY 12 HOURS SUBQ 01/31/19 21:00 03/02/19 20:59 02/02/19 20:58 Morphine Sulfate (Morphine Sulfate) 2 mg Q4H PRN IVP severe Pain (Pain Scale 7-10) 01/31/19 13:00 02/07/19 12:59 Nitroglycerin (Ntg) 0.4 mg Q5M PRN SL Prn Chest Pain 01/31/19 13:00 03/02/19 12:59 Ondansetron HCl (Zofran) 4 mg Q6H PRN IVP Nausea & Vomiting 01/31/19 13:00 03/02/19 12:59 Pantoprazole (Protonix) 40 mg BID ORAL 02/01/19 18:00 03/03/19 08:59 02/03/19 09:13 Polyethylene Glycol (Miralax) 17 gm BEDTIME ORAL 02/01/19 21:00 03/03/19 20:59 02/02/19 20:59 Polyethylene Glycol (Miralax) 17 gm DAILYPRN PRN ORAL Constipation 01/31/19 13:00 03/02/19 12:59 Sucralfate (Carafate) 1 gm TID ORAL 01/31/19 13:00 03/02/19 12:59 02/03/19 09:13 Temazepam (Restoril) 15 mg HSPRN PRN ORAL Insomnia 01/31/19 13:00 02/07/19 12:59 Chano Ling MD Feb 03, 2019 11:38
[2019-02-03] MEDS ORDERED: PANTOPRAZOLE SO40 MG ORAL (11:42)
--- NOTE | 2019-02-03 11:43 | GI Progress Note ---
Assessment/Plan Problems: (1) Constipation ICD Codes: K59.00 - Constipation, unspecified SNOMED: 16975796 (2) GERD (gastroesophageal reflux disease) ICD Codes: K21.9 - Gastro-esophageal reflux disease without esophagitis SNOMED: 773581701 (3) HTN (hypertension) ICD Codes: I10 - Essential (primary) hypertension SNOMED: 72101095 (4) PUD (peptic ulcer disease) ICD Codes: K27.9 - Peptic ulcer, site unspecified, unspecified as acute or chronic, without hemorrhage or perforation SNOMED: 22930815 (5) Gastroenteritis ICD Codes: K52.9 - Noninfective gastroenteritis and colitis, unspecified SNOMED: 65398766 (6) Hiatal hernia ICD Codes: K44.9 - Hiatal hernia SNOMED: 22827591 Status: stable, unchanged Status Narrative Discussed with Dr. Zheng. Assessment/Plan No plans for GI procedures at this time Symptomatic treatment follow up abdominal US Advance diet as tolerated PPI Add maintenance dose of Carafate Zofran as needed Bowel regimen of Colace and MiraLAX Follow labs The patient was seen and examined at bedside and all new and available data was reviewed in the patients chart. I agree with the above findings, impression and plan. (Patient seen earlier today. Signature stamp does not reflect patient encounter time.). - Patrick Zheng MD Subjective Subjective still has complaint of RUQ pain Objective Last 24 Hour Vital Signs Date Time Temp Pulse Resp B/P (MAP) Pulse Ox O2 Delivery O2 Flow Rate FiO2 02/03/19 09:00 Room Air 02/03/19 08:00 97.2 79 20 120/66 (84) 97 02/03/19 08:00 86 02/03/19 04:00 66 02/03/19 00:00 97.2 75 19 106/61 (76) 98 02/03/19 00:00 75 02/02/19 21:00 Room Air 02/02/19 20:00 98.1 81 19 103/59 (74) 98 02/02/19 20:00 81 02/02/19 16:00 87 02/02/19 16:00 97.5 78 18 108/54 (72) 96 02/02/19 12:00 76 02/02/19 12:00 97.3 67 20 105/57 (73) 97 Intake and Output 9/17/19 9/18/19 19:00 07:00 Intake Total 360 ml Balance 360 ml Intake Oral 360 ml # Voids 4 6 # Bowel Movements 2 Laboratory Tests Test 02/03/19 07:10 White Blood Count 4.4 K/UL (4.8-10.8) L Red Blood Count 4.74 M/UL (4.20-5.40) Hemoglobin 11.8 G/DL (12.0-16.0) L Hematocrit 38.3 % (37.0-47.0) Mean Corpuscular Volume 81 FL (80-99) Mean Corpuscular Hemoglobin 24.9 PG (27.0-31.0) L Mean Corpuscular Hemoglobin Concent 30.9 G/DL (32.0-36.0) L Red Cell Distribution Width 13.6 % (11.6-14.8) Platelet Count 280 K/UL (150-450) Mean Platelet Volume 7.6 FL (6.5-10.1) Neutrophils (%) (Auto) 44.0 % (45.0-75.0) L Lymphocytes (%) (Auto) 42.7 % (20.0-45.0) Monocytes (%) (Auto) 9.0 % (1.0-10.0) Eosinophils (%) (Auto) 2.8 % (0.0-3.0) Basophils (%) (Auto) 1.6 % (0.0-2.0) Sodium Level 139 MMOL/L (136-145) Potassium Level 4.5 MMOL/L (3.5-5.1) Chloride Level 103 MMOL/L (98-107) Carbon Dioxide Level 25 MMOL/L (21-32) Anion Gap 11 mmol/L (5-15) Blood Urea Nitrogen 17 mg/dL (7-18) Creatinine 0.9 MG/DL (0.55-1.30) Estimat Glomerular Filtration Rate mL/min (>60) Glucose Level 108 MG/DL (74-106) H Calcium Level 10.0 MG/DL (8.5-10.1) Height (Feet): 5 Height (Inches): 2.00 Weight (Pounds): 167 General Appearance: WD/WN, no apparent distress, alert Cardiovascular: normal rate Respiratory/Chest: normal breath sounds, no respiratory distress Abdominal Exam: normal bowel sounds, non tender, soft Extremities: normal range of motion, non-tender Rodri Oliveros NP Feb 03, 2019 11:43
--- NOTE | 2019-02-03 12:02 | Internal Med Progress Note ---
Subjective Date of Service: Feb 03, 2019 Physician Name BrooksAngus solitario Attending Physician Silvino Calvillo MD Current Medications Medications (Trade) Dose Ordered Sig/Radha Route PRN Reason Start Time Stop Time Status Last Admin Dose Admin Acetaminophen (Tylenol) 650 mg Q4H PRN ORAL FEVER 01/31/19 13:00 03/02/19 12:59 Albuterol/ Ipratropium (Albuterol/ Ipratropium) 3 ml Q4H PRN HHN Shortness of Breath 01/31/19 13:00 02/05/19 12:59 Diltiazem HCl (Cardizem) 10 mg Q1H PRN IV heart rate more than 120, 01/31/19 13:00 03/02/19 12:59 Docusate Sodium (Colace) 100 mg TIDPRN PRN ORAL Constipation 02/01/19 12:00 03/03/19 11:59 Docusate Sodium (Colace) 100 mg TWICE A DAY ORAL 02/01/19 18:00 03/03/19 17:59 02/03/19 09:13 Enalaprilat (Vasotec) 2.5 mg Q6H PRN IV sbp more than 160 01/31/19 13:00 03/02/19 12:59 Heparin Sodium (Porcine) (Heparin 5000 units/ml) 5,000 units EVERY 12 HOURS SUBQ 01/31/19 21:00 03/02/19 20:59 02/02/19 20:58 Morphine Sulfate (Morphine Sulfate) 2 mg Q4H PRN IVP severe Pain (Pain Scale 7-10) 01/31/19 13:00 02/07/19 12:59 Nitroglycerin (Ntg) 0.4 mg Q5M PRN SL Prn Chest Pain 01/31/19 13:00 03/02/19 12:59 Ondansetron HCl (Zofran) 4 mg Q6H PRN IVP Nausea & Vomiting 01/31/19 13:00 03/02/19 12:59 Pantoprazole (Protonix) 40 mg BID ORAL 02/01/19 18:00 03/03/19 08:59 02/03/19 09:13 Polyethylene Glycol (Miralax) 17 gm BEDTIME ORAL 02/01/19 21:00 03/03/19 20:59 02/02/19 20:59 Polyethylene Glycol (Miralax) 17 gm DAILYPRN PRN ORAL Constipation 01/31/19 13:00 03/02/19 12:59 Sucralfate (Carafate) 1 gm TID ORAL 01/31/19 13:00 03/02/19 12:59 02/03/19 09:13 Temazepam (Restoril) 15 mg HSPRN PRN ORAL Insomnia 01/31/19 13:00 02/07/19 12:59 Allergies: Coded Allergies: Broccoli (Verified Allergy, Unknown, 08/10/18) IBUPROFEN (Verified Allergy, Unknown, 08/10/18) LACTOSE (Verified Allergy, Unknown, 08/10/18) Lactose intolerant MILK (Verified Allergy, Unknown, 08/10/18) ONION (Verified Allergy, Unknown, 08/10/18) ORANGE JUICE (Verified Allergy, Unknown, 08/10/18) TOMATO (Verified Allergy, Unknown, 08/10/18) ROS Limited/Unobtainable: No Constitutional: Reports: no symptoms HEENT: Reports: no symptoms Cardiovascular: Reports: no symptoms Respiratory: Reports: no symptoms Gastrointestinal/Abdominal: Reports: no symptoms Genitourinary: Reports: no symptoms Neurologic/Psychiatric: Reports: no symptoms Subjective 73 YO F admitted with epigastric pain and nausea. Also Chest pain. Cover for Int Rex-Dr Calvillo Objective Last Vital Signs Date Time Temp Pulse Resp B/P (MAP) Pulse Ox O2 Delivery O2 Flow Rate FiO2 02/03/19 09:00 Room Air 02/03/19 08:00 97.2 79 20 120/66 (84) 97 Laboratory Tests Test 02/03/19 07:10 White Blood Count 4.4 K/UL (4.8-10.8) L Red Blood Count 4.74 M/UL (4.20-5.40) Hemoglobin 11.8 G/DL (12.0-16.0) L Hematocrit 38.3 % (37.0-47.0) Mean Corpuscular Volume 81 FL (80-99) Mean Corpuscular Hemoglobin 24.9 PG (27.0-31.0) L Mean Corpuscular Hemoglobin Concent 30.9 G/DL (32.0-36.0) L Red Cell Distribution Width 13.6 % (11.6-14.8) Platelet Count 280 K/UL (150-450) Mean Platelet Volume 7.6 FL (6.5-10.1) Neutrophils (%) (Auto) 44.0 % (45.0-75.0) L Lymphocytes (%) (Auto) 42.7 % (20.0-45.0) Monocytes (%) (Auto) 9.0 % (1.0-10.0) Eosinophils (%) (Auto) 2.8 % (0.0-3.0) Basophils (%) (Auto) 1.6 % (0.0-2.0) Sodium Level 139 MMOL/L (136-145) Potassium Level 4.5 MMOL/L (3.5-5.1) Chloride Level 103 MMOL/L (98-107) Carbon Dioxide Level 25 MMOL/L (21-32) Anion Gap 11 mmol/L (5-15) Blood Urea Nitrogen 17 mg/dL (7-18) Creatinine 0.9 MG/DL (0.55-1.30) Estimat Glomerular Filtration Rate mL/min (>60) Glucose Level 108 MG/DL (74-106) H Calcium Level 10.0 MG/DL (8.5-10.1) Intake and Output 02/02/19 02/03/19 19:00 07:00 Intake Total 360 ml Balance 360 ml Intake Oral 360 ml # Voids 4 6 # Bowel Movements 2 Objective PHYSICAL EXAMINATION: GENERAL: The patient is a well-developed and well-nourished female, in no apparent distress. HEENT: Eyes, pupils are equal and responsive to light and accommodation. Extraocular movements are intact. NECK: Supple without lymphadenopathy. CHEST: Lungs are clear to auscultation bilaterally without wheezes or rales. CARDIOVASCULAR: Regular rhythm and rate. S1 and S2 normal without murmurs, rubs, or gallops. ABDOMEN: Soft, tender to palpation in the epigastric region, with decreased bowel sounds. No evidence of hepatosplenomegaly. Currently, no rebound or guarding noted. EXTREMITIES: Negative for clubbing, cyanosis, or edema. RECTAL/GENITAL: Not performed. NEUROLOGICAL: Cranial nerves II through XII are grossly intact without focal deficits. Motor strength is 5/5 bilaterally. Deep tendon reflexes are 2+ plantar. Assessment/Plan Assessment/Plan ASSESSMENT: This is a 73-year-old female with: 1. Epigastric pain. 2. Nausea. 3. Chest pain. 4. Gastritis. 5. Gastroesophageal reflux disease. 6. Hypertension. 7. Hiatal hernia. 8. Paget's disease of left femur. 9. Osteoarthritis of the spine. TREATMENT: 1. Epigastric pain/nausea. The patient is currently receiving Zofran intravenously p.r.n. for nausea. A Gastroenterology consultation has been obtained with Dr. Patrick Zheng. We will follow recommendation of Dr. Zheng. No GI procedures are scheduled at this time. Continue carafate and protonix BID 2. Chest pain. Ruled out for acute coronary syndrome; serial troponin levels are negative. A Cardiology consultation has been obtained with Dr. Calderon Winters. 3. Gastritis/gastroesophageal reflux disease. Continue Carafate and Protonix as above. 4. Hypertension. The patient is currently not on antihypertensive medication. The patient will be started on intravenous Vasotec and Cardizem as needed for systolic greater than 150 or diastolic greater than 100. 5. Hiatal hernia. 6. Paget's disease of left femur. 7. Osteoarthritis of the spine. 8. Discharge home today Angus Brooks MD Feb 03, 2019 12:02
--- NOTE | 2019-02-03 15:00 | Diagnostic Imaging Report ---
Indication: Abdominal pain Technique: Grayscale and duplex Doppler imaging of the abdomen performed. Comparison: 08/10/2018 and 05/07/2018 Findings: Imaged portions of the pancreatic head grossly unremarkable. Liver is normal in size. Hepatic contour appears smooth. Hepatic echogenicity is within normal limits and homogeneous. No focal hepatic mass lesion appreciated sonographically. Main portal vein appears patent with normal direction of flow. Gallbladder is unremarkable, without gallstones or gallbladder sludge. No gallbladder wall thickening or pericholecystic fluid. Sonographic Terrazas sign reported as negative. No intrahepatic biliary ductal dilatation. Common bile duct measures 4 mm. Kidneys demonstrate normal echogenicity bilaterally. No sonographically appreciable renal stone is identified. There is mild fullness of the right renal collecting system. Some simple appearing cysts are noted in the left kidney. Spleen is normal in size and appearance. Imaged portions of abdominal aorta normal in caliber. No ascites demonstrated. IMPRESSION: * No evidence of cholelithiasis or sonographic evidence to suggest acute cholecystitis. Sonographic Terrazas sign reported as negative. * Mild fullness of the right renal collecting system. No definite renal stones identified sonographically.
--- NOTE | 2019-02-03 16:10 | NUR ---
NURSE NOTES: Made aware of discharge planning.
--- NOTE | 2019-02-03 19:27 | Cardiology Progress Note ---
Assessment/Plan Assessment/Plan 1. Atypical chest pain, likely GI related. 2. Coronary artery disease by CT coronary angiography in March 2018 at [facility]. 3. Hiatal hernia. 4. History of gastritis. all torp neg no further cardaic testing at this selena eunless change in status u/s noted home soon Subjective Cardiovascular: Denies: chest pain, lightheadedness Respiratory: Denies: shortness of breath Gastrointestinal/Abdominal: Denies: abdominal pain Genitourinary: Denies: burning Objective Last 24 Hour Vital Signs Date Time Temp Pulse Resp B/P (MAP) Pulse Ox O2 Delivery O2 Flow Rate FiO2 02/03/19 16:00 96.6 81 18 119/68 (85) 98 02/03/19 16:00 86 02/03/19 12:00 97.8 75 18 131/69 (89) 96 02/03/19 12:00 96 02/03/19 09:00 Room Air 02/03/19 08:00 97.2 79 20 120/66 (84) 97 02/03/19 08:00 86 02/03/19 04:00 66 02/03/19 00:00 97.2 75 19 106/61 (76) 98 02/03/19 00:00 75 02/02/19 21:00 Room Air 02/02/19 20:00 98.1 81 19 103/59 (74) 98 02/02/19 20:00 81 General Appearance: no apparent distress, alert Neck: supple Cardiovascular: normal rate, regular rhythm Respiratory/Chest: lungs clear, normal breath sounds Abdomen: normal bowel sounds, non tender, soft Extremities: no swelling Intake and Output 02/02/19 02/03/19 19:00 07:00 Intake Total 360 ml Balance 360 ml Intake Oral 360 ml # Voids 4 6 # Bowel Movements 2 Laboratory Tests Test 02/03/19 07:10 White Blood Count 4.4 K/UL (4.8-10.8) L Red Blood Count 4.74 M/UL (4.20-5.40) Hemoglobin 11.8 G/DL (12.0-16.0) L Hematocrit 38.3 % (37.0-47.0) Mean Corpuscular Volume 81 FL (80-99) Mean Corpuscular Hemoglobin 24.9 PG (27.0-31.0) L Mean Corpuscular Hemoglobin Concent 30.9 G/DL (32.0-36.0) L Red Cell Distribution Width 13.6 % (11.6-14.8) Platelet Count 280 K/UL (150-450) Mean Platelet Volume 7.6 FL (6.5-10.1) Neutrophils (%) (Auto) 44.0 % (45.0-75.0) L Lymphocytes (%) (Auto) 42.7 % (20.0-45.0) Monocytes (%) (Auto) 9.0 % (1.0-10.0) Eosinophils (%) (Auto) 2.8 % (0.0-3.0) Basophils (%) (Auto) 1.6 % (0.0-2.0) Sodium Level 139 MMOL/L (136-145) Potassium Level 4.5 MMOL/L (3.5-5.1) Chloride Level 103 MMOL/L (98-107) Carbon Dioxide Level 25 MMOL/L (21-32) Anion Gap 11 mmol/L (5-15) Blood Urea Nitrogen 17 mg/dL (7-18) Creatinine 0.9 MG/DL (0.55-1.30) Estimat Glomerular Filtration Rate mL/min (>60) Glucose Level 108 MG/DL (74-106) H Calcium Level 10.0 MG/DL (8.5-10.1) Calderon Winters MD Feb 03, 2019 19:27
--- NOTE | 2019-02-03 19:30 | NUR ---
NURSE NOTES: Received report from ARIEL Howell. Pt is awake and resting in bed. In no acute distress. Bed in lowest position, call light within reach. Will continue plan of care.
--- NOTE | 2019-02-03 19:30 | NUR ---
HAND-OFF: Report given to ARIEL Christianson. Plan of care endorsed.
[2019-02-03] MEDS ORDERED: Morphine Sulfate 2mg/ml Inj(IV/IM USE ONLY) IVP PRN (20:30)
[2019-02-03] MEDS ORDERED: Miralax 17gm pkt ORAL PRN (20:30)
[2019-02-03] MEDS ORDERED: Docusate 100mg cap ORAL PRN (20:30)
[2019-02-03] MEDS ORDERED: Albuterol/Ipratropium 3ml neb HHN PRN (20:30)
[2019-02-03] MEDS ORDERED: Enalaprilat 2.5mg/2ml Inj IV PRN (20:30)
[2019-02-03] MEDS ORDERED: Nitroglycerin Subl 0.4mg tab SL PRN (20:30)
--- NOTE | 2019-02-03 20:41 | NUR ---
NURSE NOTES: Left Dr. Ling a message regarding pt's refusal to go home stating that she wants to talk to Dr. Zheng first regarding her medications.
--- NOTE | 2019-02-03 20:41 | NUR ---
NURSE NOTES: Spoke to VIOLA Oliveros regarding pt's concerns about her GI meds. RAG COLLECTOR said to tell pt that she can go home and then visit Dr. Zheng's pt as outpatient.
--- NOTE | 2019-02-03 20:42 | NUR ---
TRANSFER TO FLOOR: Patient transferred to [address] [place] [address], per MD order. Report given to ARIEL Light. Belongings and medications given to RN.
[2019-02-03] MEDS ORDERED: dilTIAZem HCl 25mg/5ml Inj IV PRN (21:00)
[2019-02-03] MEDS ORDERED: Miralax 17gm pkt ORAL SCH (21:00)
[2019-02-04 04:00] VITALS: BP 126/69
[2019-02-04 07:00] LABS: BASOPHILS % (AUTO) 2.7 % (0.0-2.0); HEMOGLOBIN 11.9 G/DL (12.0-16.0); LYMPHOCYTES % (AUTO) 46.6 % (20.0-45.0); MEAN CORPUSCULAR VOLUME 82 FL (80-99); NEUTROPHILS % (AUTO) 37.6 % (45.0-75.0); PLATELET COUNT 285 K/UL (150-450); RED BLOOD COUNT 4.65 M/UL (4.20-5.40); RED CELL DISTRIBUTION WIDTH 14.2 % (11.6-14.8); WHITE BLOOD COUNT 4.3 K/UL (4.8-10.8)
[2019-02-04 07:20] LABS: ANION GAP 18 mmol/L (5-15); BLOOD UREA NITROGEN 19 mg/dL (7-18); CALCIUM 10.3 MG/DL (8.5-10.1); CARBON DIOXIDE 18 MMOL/L (21-32); CHLORIDE 103 MMOL/L (98-107); CREATININE 0.9 MG/DL (0.55-1.30); POTASSIUM 4.9 MMOL/L (3.5-5.1); SODIUM 139 MMOL/L (136-145)
--- NOTE | 2019-02-04 07:26 | NUR ---
HAND-OFF: Report given to Alethea Constantino RN.
--- NOTE | 2019-02-04 07:47 | NUR ---
NURSE NOTES: Patient is awake, alert x4; room air, no sign of distress, no sing of shortness of breath; no chest pain; IV LH 22G flushes well; Per PM nurse patient refused discharge on 02/03 and patient is asking to see MD Zheng regarding her GI medication before patient is discharge. Also per report MD Ling is aware that patient refused discharge. side rails up x2, bed at lowest position, breaks engage. will keep monitoring.
[2019-02-04 08:00] VITALS: BP 121/63
[2019-02-04] MEDS: Sucralfate 1gm tab ORAL SCH ×2 (08:21→12:12)
[2019-02-04] MEDS: Heparin 5000 units/ml inj SUBQ SCH (08:23)
[2019-02-04] MEDS ORDERED: Docusate 100mg cap ORAL SCH (09:00)
[2019-02-04 12:00] VITALS: BP 138/67
--- NOTE | 2019-02-04 12:28 | Pulmonology Progress Note ---
Assessment/Plan Problems: (1) GERD (gastroesophageal reflux disease) (2) HTN (hypertension) (3) PUD (peptic ulcer disease) (4) Hiatal hernia Assessment/Plan she wants to talk to Dr Ankur gamble leaving doing better symptomatic treatment monitor BP dc planning she wants a medication that works for her illness. Subjective ROS Limited/Unobtainable: No Constitutional: Reports: no symptoms HEENT: Repors: no symptoms Respiratory: Reports: no symptoms Cardiovascular: Reports: no symptoms Allergies: Coded Allergies: Broccoli (Verified Allergy, Unknown, 08/10/18) IBUPROFEN (Verified Allergy, Unknown, 08/10/18) LACTOSE (Verified Allergy, Unknown, 08/10/18) Lactose intolerant MILK (Verified Allergy, Unknown, 08/10/18) ONION (Verified Allergy, Unknown, 08/10/18) ORANGE JUICE (Verified Allergy, Unknown, 08/10/18) TOMATO (Verified Allergy, Unknown, 08/10/18) Objective Last 24 Hour Vital Signs Date Time Temp Pulse Resp B/P (MAP) Pulse Ox O2 Delivery O2 Flow Rate FiO2 02/04/19 12:00 97.7 72 18 138/67 (90) 98 02/04/19 09:05 86 18 97 Room Air 21 02/04/19 09:00 Room Air 02/04/19 08:00 97.2 80 18 121/63 (82) 96 02/04/19 04:00 97.3 75 18 126/69 (88) 97 02/03/19 23:56 97.5 74 18 118/68 (85) 97 02/03/19 21:39 Room Air 02/03/19 20:00 98.1 94 18 133/84 (100) 97 02/03/19 16:00 96.6 81 18 119/68 (85) 98 02/03/19 16:00 86 Intake and Output 02/03/19 02/04/19 19:00 07:00 Intake Total 280 ml 300 ml Balance 280 ml 300 ml Intake Oral 280 ml 300 ml # Voids 3 General Appearance: WD/WN HEENT: normocephalic, atraumatic Respiratory/Chest: chest wall non-tender, lungs clear Breasts: no masses Cardiovascular: normal peripheral pulses, normal rate Abdomen: normal bowel sounds, no organomegaly Extremities: no cyanosis Skin: no rash Laboratory Tests 02/04/19 05:00: White Blood Count 4.3L, Red Blood Count 4.65, Hemoglobin 11.9L, Hematocrit 38.0 , Mean Corpuscular Volume 82, Mean Corpuscular Hemoglobin 25.5L, Mean Corpuscular Hemoglobin Concent 31.2L, Red Cell Distribution Width 14.2, Platelet Count 285, Mean Platelet Volume 6.4L, Neutrophils (%) (Auto) 37.6L, Lymphocytes (%) (Auto) 46.6H, Monocytes (%) (Auto) 10.0, Eosinophils (%) (Auto) 3.0, Basophils (%) (Auto) 2.7H, Sodium Level 139, Potassium Level 4.9, Chloride Level 103, Carbon Dioxide Level 18L, Anion Gap 18H, Blood Urea Nitrogen 19H, Creatinine 0.9, Estimat Glomerular Filtration Rate , Glucose Level 78, Calcium Level 10.3H Current Medications Medications (Trade) Dose Ordered Sig/Radha Route PRN Reason Start Time Stop Time Status Last Admin Dose Admin Acetaminophen (Tylenol) 650 mg Q4H PRN ORAL FEVER 02/03/19 20:30 03/02/19 20:29 Albuterol/ Ipratropium (Albuterol/ Ipratropium) 3 ml Q4H PRN HHN Shortness of Breath 02/03/19 20:30 02/05/19 20:29 Docusate Sodium (Colace) 100 mg TIDPRN PRN ORAL Constipation 02/03/19 20:30 03/05/19 20:29 Docusate Sodium (Colace) 100 mg TWICE A DAY ORAL 02/04/19 09:00 03/03/19 17:59 02/04/19 08:21 Enalaprilat (Vasotec) 2.5 mg Q6H PRN IV sbp more than 160 02/03/19 20:30 03/05/19 20:29 Heparin Sodium (Porcine) (Heparin 5000 units/ml) 5,000 units EVERY 12 HOURS SUBQ 02/03/19 21:00 03/02/19 20:59 02/04/19 08:23 Morphine Sulfate (Morphine Sulfate) 2 mg Q4H PRN IVP severe Pain (Pain Scale 7-10) 02/03/19 20:30 02/07/19 20:29 Nitroglycerin (Ntg) 0.4 mg Q5M PRN SL Prn Chest Pain 02/03/19 20:30 03/02/19 12:59 Ondansetron HCl (Zofran) 4 mg Q6H PRN IVP Nausea & Vomiting 02/03/19 20:30 03/05/19 20:29 Pantoprazole (Protonix) 40 mg BID ORAL 02/04/19 09:00 03/03/19 08:59 02/04/19 08:21 Polyethylene Glycol (Miralax) 17 gm BEDTIME ORAL 02/03/19 21:00 03/03/19 20:59 Polyethylene Glycol (Miralax) 17 gm DAILYPRN PRN ORAL Constipation 02/03/19 20:30 03/05/19 20:29 Sucralfate (Carafate) 1 gm TID ORAL 02/04/19 09:00 03/02/19 12:59 02/04/19 12:12 Temazepam (Restoril) 15 mg HSPRN PRN ORAL Insomnia 02/03/19 20:30 02/10/19 20:29 Chano Ling MD Feb 04, 2019 12:28
--- NOTE | 2019-02-04 13:24 | GI Progress Note ---
Assessment/Plan Problems: (1) Constipation ICD Codes: K59.00 - Constipation, unspecified SNOMED: 78895605 (2) GERD (gastroesophageal reflux disease) ICD Codes: K21.9 - Gastro-esophageal reflux disease without esophagitis SNOMED: 796908658 (3) HTN (hypertension) ICD Codes: I10 - Essential (primary) hypertension SNOMED: 60073891 (4) PUD (peptic ulcer disease) ICD Codes: K27.9 - Peptic ulcer, site unspecified, unspecified as acute or chronic, without hemorrhage or perforation SNOMED: 89923688 (5) Gastroenteritis ICD Codes: K52.9 - Noninfective gastroenteritis and colitis, unspecified SNOMED: 50669827 (6) Hiatal hernia ICD Codes: K44.9 - Hiatal hernia SNOMED: 68036009 Status: stable Status Narrative Discussed with Dr. Zheng. Assessment/Plan okay for DC per GI standpoint No plans for GI procedures at this time Symptomatic treatment follow up abdominal US >> negative Advance diet as tolerated PPI Cont maintenance dose of Carafate Zofran as needed Bowel regimen of Colace and MiraLAX Follow labs Rx placed in physical chart, patient needs outpatient fu with us The patient was seen and examined at bedside and all new and available data was reviewed in the patients chart. I agree with the above findings, impression and plan. (Patient seen earlier today. Signature stamp does not reflect patient encounter time.). - Patrick Zheng MD Subjective Gastrointestinal/Abdominal: Reports: no symptoms Objective Last 24 Hour Vital Signs Date Time Temp Pulse Resp B/P (MAP) Pulse Ox O2 Delivery O2 Flow Rate FiO2 02/04/19 12:00 97.7 72 18 138/67 (90) 98 02/04/19 09:05 86 18 97 Room Air 21 02/04/19 09:00 Room Air 02/04/19 08:00 97.2 80 18 121/63 (82) 96 02/04/19 04:00 97.3 75 18 126/69 (88) 97 02/03/19 23:56 97.5 74 18 118/68 (85) 97 02/03/19 21:39 Room Air 02/03/19 20:00 98.1 94 18 133/84 (100) 97 02/03/19 16:00 96.6 81 18 119/68 (85) 98 02/03/19 16:00 86 Intake and Output 02/03/19 02/04/19 19:00 07:00 Intake Total 280 ml 300 ml Balance 280 ml 300 ml Intake Oral 280 ml 300 ml # Voids 3 Laboratory Tests Test 02/04/19 05:00 White Blood Count 4.3 K/UL (4.8-10.8) L Red Blood Count 4.65 M/UL (4.20-5.40) Hemoglobin 11.9 G/DL (12.0-16.0) L Hematocrit 38.0 % (37.0-47.0) Mean Corpuscular Volume 82 FL (80-99) Mean Corpuscular Hemoglobin 25.5 PG (27.0-31.0) L Mean Corpuscular Hemoglobin Concent 31.2 G/DL (32.0-36.0) L Red Cell Distribution Width 14.2 % (11.6-14.8) Platelet Count 285 K/UL (150-450) Mean Platelet Volume 6.4 FL (6.5-10.1) L Neutrophils (%) (Auto) 37.6 % (45.0-75.0) L Lymphocytes (%) (Auto) 46.6 % (20.0-45.0) H Monocytes (%) (Auto) 10.0 % (1.0-10.0) Eosinophils (%) (Auto) 3.0 % (0.0-3.0) Basophils (%) (Auto) 2.7 % (0.0-2.0) H Sodium Level 139 MMOL/L (136-145) Potassium Level 4.9 MMOL/L (3.5-5.1) Chloride Level 103 MMOL/L (98-107) Carbon Dioxide Level 18 MMOL/L (21-32) L Anion Gap 18 mmol/L (5-15) H Blood Urea Nitrogen 19 mg/dL (7-18) H Creatinine 0.9 MG/DL (0.55-1.30) Estimat Glomerular Filtration Rate mL/min (>60) Glucose Level 78 MG/DL (74-106) Calcium Level 10.3 MG/DL (8.5-10.1) H Height (Feet): 5 Height (Inches): 2.00 Weight (Pounds): 167 General Appearance: WD/WN, no apparent distress, alert Cardiovascular: normal rate Respiratory/Chest: normal breath sounds, no respiratory distress Abdominal Exam: normal bowel sounds, non tender, soft Extremities: normal range of motion, non-tender Rodri Oliveros NP Feb 04, 2019 13:24
--- NOTE | 2019-02-04 16:08 | NUR ---
NURSE NOTES: Patient discharged and left the floor around 1600, accompanied by floor hospice patient care secretary; patient was ambulatory and picked by [employer] van; name tag and IV access removed; patient's own medication given back to patient; medication from VIOLA Licea's prescription given; patient teaching given regarding the medication patient gonna continue home; the original prescription paper given to patient and copy on file; patient was stable upon discharge; belonging list signed by patient and discharging nurse; patient was stable upon discharge.
--- NOTE | 2019-02-05 12:34 | Discharge Summary ---
Discharge Summary Discharge Summary _ DATE OF ADMISSION: 01/31/2019 DATE OF DISCHARGE: 02/04/2019 DISCHARGED BY: Dr. Calvillo REASON FOR ADMISSION: 73 years old female with past medical history of tachycardia, recurrent chest pain, bilateral hearing aids, Paget's disease to left femur, presented to emergency department complaining of epigastric pain and nausea. Patient also later complained of midsternal chest pain, which was described as cramping and sharp. She denied any associated shortness of breath. She denied back or flank pain. No cough or congestion. No fevers or chills. Patient reported decreased oral intake. Upon evaluation vital signs were stable. Laboratory work-up revealed no leukocytosis, stable hemoglobin and hematocrit. Stable electrolytes and renal parameters. Glucose 86. Stable LFT. Troponin negative. Albumin 3.6. EKG revealed sinus rhythm with nonspecific ST changes. No acute ischemic changes. Chest x-ray revealed no acute cardiopulmonary pathology. Patient subsequently admitted to telemetry floor for further management. CONSULTANTS: rag room supervisor Dr. Winters hospitalist Dr. Ling GI specialist Dr. Zheng [facility]SE: Patient admitted to telemetry floor. Nickel Plant Operator and hospitalist followed. Serial troponin were negative. EKG revealed no acute ischemic changes. Patient was ruled out for acute myocardial infarction. Echocardiogram revealed preserved ejection fraction of 60% with no evidence of left ventricular hypertrophy. No evidence of wall motion abnormality. Right ventricular systolic pressure of 15. Lipid panel revealed elevated total cholesterol 255 , elevated LDL 134. TSH was within normal limits. Supplemental oxygen provided and titrated as needed to keep pulse oximetry above 92%. Bronchodilator treatment provided as needed. Pain management was addressed. DVT and GI prophylaxis provided. Per rag room supervisor chest pain was atypical, likely GI related. Patient had a history of coronary artery disease by CT coronary angiogram in March 2018 at [facility]. Blood pressure was closely monitored and remained stable. Patient was educated on low fat low cholesterol diet. Patient was reluctant to start statin at this time. Recommended low fat low cholesterol diet and repeat lipid panel in 3 months, if still elevated LDL and total cholesterol, consider initiating Therapy with statin. Nickel Plant Operator did not recommend any further cardiac testing at this time , unless any changes. GI specialist followed. Abdominal ultrasound demonstrated no evidence of cholelithiasis or acute cholecystitis. No definite renal stones identified sonographically. Bowel regimen instituted. Frequency of proton pump inhibitor was increased to twice daily. Carafate initiated. Diet was slowly advanced as tolerated. Patient was able to tolerate diet. Antiemetic were on board as needed. Pain was controlled. No plans for GI procedure at this time as per GI specialist. D Patient was advised to follow-up with GI specialist as outpatient. Patient clinically stabilized and was ready for discharge. FINAL DIAGNOSES: Atypical chest pain , likely GI related GERD Peptic ulcer disease Hiatal hernia Coronary artery disease/by CT coronary angiogram in March 2018 at [facility] Hyperlipidemia DISCHARGE MEDICATIONS: See Medication Reconciliation list. DISCHARGE INSTRUCTIONS: Patient was discharged home with home health services. Follow up with primary care provider in one week. I have been assigned to dictate discharge summary for this account. I was not involved in the patient's management. Sanjuana Ferreira NP Feb 05, 2019 12:34
== END 2019-02-04 15:57 | disposition home or self-care (01) | DRG 392 ==
LOC: EMR 10:29 → EDBEDREQ 10:54 → EMR 11:40 → 2E 12:05 → 4E 02-03 20:27
DX: K21.9 Gastro-esophageal reflux disease without esophagitis (principal); R11.0 Nausea; K44.9 Diaphragmatic hernia without obstruction or gangrene; K29.70 Gastritis, unspecified, without bleeding; Z88.6 Allergy status to analgesic agent; I10 Essential (primary) hypertension; R07.9 Chest pain, unspecified; M88.852 Osteitis deformans of left thigh; M47.9 Spondylosis, unspecified; R07.89 Other chest pain; I25.10 Atherosclerotic heart disease of native coronary artery without angina pectoris; K27.9 Peptic ulcer, site unspecified, unspecified as acute or chronic, without hemorrhage or perforation; E78.5 Hyperlipidemia, unspecified; K52.9 Noninfective gastroenteritis and colitis, unspecified; K59.00 Constipation, unspecified
CPT/HCPCS: 36415; 71045; 76700; 80048; 80053; 80061; 82550; 82553; 83690; 84443; 84484; 85025; 85610; 85730; 86140; 93005; 93306; 94664; 96374; 99285

== ENCOUNTER 2019-02-08 13:53 | Outpatient (CLI) | payer MEDICARE, MEDICAID ==
--- NOTE | 2019-02-08 14:38 | General Progress Note ---
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 ICD Codes: M88.862 - Osteitis deformans of left lower leg SNOMED: 6642478, 182563183 (6) PUD (peptic ulcer disease) ICD Codes: K27.9 - Peptic ulcer, site unspecified, unspecified as acute or chronic, without hemorrhage or perforation SNOMED: 63775547 (7) SBO (small bowel obstruction) ICD Codes: K56.69 - Other intestinal obstruction SNOMED: 456688183 Assessment/Plan: trial of Elavil 20 mg po QHS Subjective ROS Limited/Unobtainable: Yes Allergies: Coded Allergies: Broccoli (Verified Allergy, Unknown, 08/10/18) IBUPROFEN (Verified Allergy, Unknown, 08/10/18) LACTOSE (Verified Allergy, Unknown, 08/10/18) Lactose intolerant MILK (Verified Allergy, Unknown, 08/10/18) ONION (Verified Allergy, Unknown, 08/10/18) ORANGE JUICE (Verified Allergy, Unknown, 08/10/18) TOMATO (Verified Allergy, Unknown, 08/10/18) Objective General Appearance: alert EENT: normal ENT inspection Neck: supple Cardiovascular: normal rate Abdomen: normal bowel sounds, non tender, soft Extremities: non-tender Patrick Zheng MD Feb 08, 2019 14:38
[2019-02-08 15:22] VITALS: BP 128/74
== END 2019-02-08 15:45 | disposition home or self-care (01) ==
LOC: PAN 13:53
DX: K59.00 Constipation, unspecified (principal); K21.9 Gastro-esophageal reflux disease without esophagitis; I10 Essential (primary) hypertension; M94.0 Chondrocostal junction syndrome [Tietze]; M88.862 Osteitis deformans of left lower leg; K27.9 Peptic ulcer, site unspecified, unspecified as acute or chronic, without hemorrhage or perforation; K56.690 Other partial intestinal obstruction; Z88.6 Allergy status to analgesic agent; Z91.011 Allergy to milk products; Z91.018 Allergy to other foods

== ENCOUNTER 2019-03-07 11:00 | Inpatient (IN) | payer MEDICARE, MEDICAID ==
[~2019-03-07] VITALS: Ht 157.5 cm; Wt 74.4 kg
--- NOTE | 2019-03-07 11:10 | NUR ---
ED Nurse Note: pt presents to ED c/o abd pain that starts in her lower abd and goes straight up to her chest. states that she was vomiting c Addendum: 03/07/19 at 1155 by QLE pt states she vomited clear fluid around 0400 or 0500 this AM. but when she vomited in the ED she had an episode of coffee ground emesis. pt reports that she feels this way when she eats a certain type of meat.
[2019-03-07 11:50] VITALS: BP 163/81
--- NOTE | 2019-03-07 12:20 | NUR ---
ED Nurse Note: pt does not want nurses to try putting an IV in her anymore without using the vein finder. charge nurse Sandy notified Addendum: 03/07/19 at 1229 by QLE I also tried calling lab to see if they could come and draw blood but waste removalist states that she is the only one there and is unablet o come up at this time to help
--- NOTE | 2019-03-07 13:30 | NUR ---
ED Nurse Note: ARIEL Brown tried using vein finder to get IV into patient but was unable to. I called lab a second time to ask them to come draw blood but there is only one rescue instructor there and he is unable to come draw blood on pt at this time Addendum: 03/07/19 at 1456 by QLE correction: phlebotomy has not been by patient's room. I called and they said they would come up to try and draw blood. pt was able to provide 220 mL of clear yellow urine. she is currently c/o abd pain and nausea
--- NOTE | 2019-03-07 13:35 | NUR ---
ED Nurse Note: pt is sleeping. vital signs are HR: 94 RR: 19 SpO2: 96%
--- NOTE | 2019-03-07 14:04 | NUR ---
ED Nurse Note: pt is still sleeping. vital signs are HR: 97, RR: 20, SpO2: 95%, BP 163/81
--- NOTE | 2019-03-07 14:08 | NUR ---
Palma joy in EDM - 03/07/19 at 1516 by SHARONE ED Nurse Note: phlebotomy was up in pt room to try and get blood work from pt but unable to. ERMD aware
--- NOTE | 2019-03-07 14:45 | NUR ---
ED Nurse Note: i helped pt to bedside cammode and she was able to provide 250 mL of clear yellow urine. pt is still c/o abd px and nausea but pt does not yet have an IV. will have one more RN try. GONZALEZ is aware
--- NOTE | 2019-03-07 15:11 | NUR ---
ED Nurse Note: phlebotomy is in pt room
[2019-03-07 15:23] LABS: APPEARANCE,URINE CLEAR; BILIRUBIN, URINE NEGATIVE (NEGATIVE); COLOR,URINE PALE YELLOW; GLUCOSE, URINE (UA) NEGATIVE (NEGATIVE); KETONES,URINE NEGATIVE (NEGATIVE); LEUKOCYTE ESTERASE ,URINE 1+ (NEGATIVE); NITRITE,URINE NEGATIVE (NEGATIVE); PH,URINE 8 (4.5-8.0); PROTEIN,URINE NEGATIVE (NEGATIVE); UROBILINOGEN,URINE NORMAL MG/DL (0.0-1.0)
[2019-03-07 15:39] LABS: BASOPHILS % (AUTO) 0.4 % (0.0-2.0); EOSINOPHILS % (AUTO) 0.7 % (0.0-3.0); HEMATOCRIT 35.8 % (37.0-47.0); HEMOGLOBIN 11.1 G/DL (12.0-16.0); LYMPHOCYTES % (AUTO) 9.3 % (20.0-45.0); MEAN CORPUSCULAR VOLUME 78 FL (80-99); MONOCYTES % (AUTO) 6.1 % (1.0-10.0); NEUTROPHILS % (AUTO) 83.5 % (45.0-75.0); PLATELET COUNT 296 K/UL (150-450); RED BLOOD COUNT 4.62 M/UL (4.20-5.40); RED CELL DISTRIBUTION WIDTH 13.9 % (11.6-14.8); WHITE BLOOD COUNT 8.8 K/UL (4.8-10.8)
[2019-03-07] MEDS ORDERED: Morphine Sulfate 2mg/ml Inj(IV/IM USE ONLY) IVP ONE (15:45)
[2019-03-07] MEDS ORDERED: cefTRIAXone 1 GM in NS 55 ML IVPB ONE (15:45)
[2019-03-07] MEDS ORDERED: ONDANSETRON ODT4 MG BC (15:51)
[2019-03-07] MEDS ORDERED: DICYCLOMINE HCL10 MG ORAL (15:51)
--- NOTE | 2019-03-07 15:54 | Emergency Room Report ---
History of Present Illness General Chief Complaint: Abdominal Pain Source: Patient, Medical Record Present Illness HPI Patient is a 73-year-old female presents after increased epigastric pain. Patient had gradual onset of symptoms. Pain was localized to the left lower and upper abdomen. She had multiple episodes of similar to previous pain. She denies any vomiting. She had some associated chest discomfort. She reports having small amount of dark-colored emesis. Similar symptoms in the past. Previous history of irritable bowel. Denies bloody stool. Allergies: Coded Allergies: Broccoli (Verified Allergy, Unknown, 08/10/18) IBUPROFEN (Verified Allergy, Unknown, 08/10/18) LACTOSE (Verified Allergy, Unknown, 08/10/18) Lactose intolerant MILK (Verified Allergy, Unknown, 08/10/18) ONION (Verified Allergy, Unknown, 08/10/18) ORANGE JUICE (Verified Allergy, Unknown, 08/10/18) TOMATO (Verified Allergy, Unknown, 08/10/18) Patient History Past Medical History: see triage record Reviewed Nursing Documentation: PMH: Agreed; PSxH: Agreed Nursing Documentation-PMH Past Medical History: No History, Except For Hx Cardiac Problems: Yes - tachycardia Hx Hypertension: No Hx Pacemaker: No Hx Asthma: No Hx COPD: No Hx Diabetes: No Hx Cancer: No Hx Gastrointestinal Problems: Yes Hx Dialysis: No Hx Neurological Problems: No Hx Cerebrovascular Accident: No Hx Seizures: No Review of Systems All Other Systems: negative except mentioned in HPI Physical Exam Vital Signs Date Time Temp Pulse Resp B/P (MAP) Pulse Ox O2 Delivery O2 Flow Rate FiO2 03/07/19 11:09 97.5 98 21 163/81 (108) 99 Room Air Sp02 EP Interpretation: reviewed, normal General Appearance: normal inspection, well appearing, no apparent distress, alert, GCS 15 Head: atraumatic ENT: normal ENT inspection, hearing grossly normal, normal voice Neck: normal inspection, full range of motion, supple, no bony tend Respiratory: normal inspection, lungs clear, normal breath sounds, no respiratory distress, no retraction, no wheezing Cardiovascular #1: regular rate, rhythm, no edema Gastrointestinal: normal bowel sounds, soft, tenderness - epigastric Genitourinary: no CVA tenderness Musculoskeletal: normal inspection, back normal, normal range of motion Neurologic: normal inspection, alert, responsive, speech normal Psychiatric: normal inspection, judgement/insight normal, mood/affect normal Medical Decision Making Diagnostic Impression: Primary Impression: GI (gastrointestinal bleed) Additional Impression: PUD (peptic ulcer disease) ER Course Patient is a 73-year-old female presented after increased abdominal pain. Differential diagnoses included ischemic bowel, appendicitis, perforated viscus , abdominal aortic aneurysm, inferior myocardial infarction, viral gastroenteritis among others.Because patient's complexity imaging studies, and laboratory testing ordered. Laboratory testing showed slightly lower hemoglobin than previous laboratory testing.. Coagulation studies are normal. Electrolytes Lipase was normal. White blood count was normal. Abdominal ultrasound showed no evidence of acute gallbladder pathology. Patient was noted to have some prior history of peptic ulcer disease and had previously been taking sucralfate. Patient was given IV acid blockers empirically for presumed gastritis versus peptic ulcer disease. Patient was had some prior history of tachycardia in the past. Dr. Silvino Calvillo was contacted for inpatient management due to prior admissions. Labs Test 03/07/19 14:40 03/07/19 15:25 Urine Color Pale yellow Urine Appearance Clear Urine pH 8 (4.5-8.0) Urine Specific Lane 1.010 (1.005-1.035) Urine Protein Negative (NEGATIVE) Urine Glucose (UA) Negative (NEGATIVE) Urine Ketones Negative (NEGATIVE) Urine Blood Negative (NEGATIVE) Urine Nitrite Negative (NEGATIVE) Urine Bilirubin Negative (NEGATIVE) Urine Urobilinogen Normal MG/DL (0.0-1.0) Urine Leukocyte Esterase 1+ (NEGATIVE) Urine RBC 0-2 /HPF (0 - 2) Urine WBC 2-4 /HPF (0 - 2) Urine Squamous Epithelial Cells Few /LPF (NONE/OCC) Urine Bacteria Few /HPF (NONE) White Blood Count 8.8 K/UL (4.8-10.8) Red Blood Count 4.62 M/UL (4.20-5.40) Hemoglobin 11.1 G/DL (12.0-16.0) Hematocrit 35.8 % (37.0-47.0) Mean Corpuscular Volume 78 FL (80-99) Mean Corpuscular Hemoglobin 24.0 PG (27.0-31.0) Mean Corpuscular Hemoglobin Concent 30.9 G/DL (32.0-36.0) Red Cell Distribution Width 13.9 % (11.6-14.8) Platelet Count 296 K/UL (150-450) Mean Platelet Volume 7.4 FL (6.5-10.1) Neutrophils (%) (Auto) 83.5 % (45.0-75.0) Lymphocytes (%) (Auto) 9.3 % (20.0-45.0) Monocytes (%) (Auto) 6.1 % (1.0-10.0) Eosinophils (%) (Auto) 0.7 % (0.0-3.0) Basophils (%) (Auto) 0.4 % (0.0-2.0) Prothrombin Time 10.4 SEC (9.30-11.50) Prothromb Time International Ratio 1.0 (0.9-1.1) Activated Partial Thromboplast Time 25 SEC (23-33) Sodium Level 138 MMOL/L (136-145) Potassium Level 4.0 MMOL/L (3.5-5.1) Chloride Level 103 MMOL/L (98-107) Carbon Dioxide Level 26 MMOL/L (21-32) Anion Gap 9 mmol/L (5-15) Blood Urea Nitrogen 13 mg/dL (7-18) Creatinine 0.6 MG/DL (0.55-1.30) Estimat Glomerular Filtration Rate mL/min (>60) Glucose Level 98 MG/DL (74-106) Calcium Level 9.3 MG/DL (8.5-10.1) Total Bilirubin 0.5 MG/DL (0.2-1.0) Aspartate Amino Transf (AST/SGOT) 23 U/L (15-37) Alanine Aminotransferase (ALT/SGPT) 28 U/L (12-78) Alkaline Phosphatase 132 U/L (46-116) Total Protein 7.5 G/DL (6.4-8.2) Albumin 3.4 G/DL (3.4-5.0) Globulin 4.1 g/dL Albumin/Globulin Ratio 0.8 (1.0-2.7) Lipase 147 U/L (73-393) EKG Diagnostic Results Rate: normal Rhythm: NSR ST Segments: no acute changes Last Vital Signs Date Time Temp Pulse Resp B/P (MAP) Pulse Ox O2 Delivery O2 Flow Rate FiO2 03/07/19 11:50 97.5 21 163/81 99 Room Air 03/07/19 11:50 98 Status: improved Disposition: ADMITTED INPATIENT Condition: Stable Scripts Dicyclomine Hcl* (DICYCLOMINE HCL*) 10 Mg Capsule 10 MG ORAL QID, #20 CAP Prov: Sebas Alcocer MD 03/07/19 Ondansetron Odt* (ZOFRAN ODT*) 4 Mg Tab.rapdis 4 MG BC EVERY 8 HOURS, #10 TAB 0 Refills Prov: Sebas Alcocer MD 03/07/19 Referrals: Silvino Calvillo MD (PCP) Patient Instructions: Abdominal Pain, Adult Additional Instructions: Follow up with Dr. Zheng for recheck. Return if worse. Sebas Alcocer MD Mar 07, 2019 15:54
[2019-03-07] MEDS ORDERED: Pantoprazole Inj IVP ONE (16:00)
[2019-03-07 16:09] LABS: ALANINE AMINOTRANSFERASE 28 U/L (12-78); ALBUMIN 3.4 G/DL (3.4-5.0); ALBUMIN/GLOBULIN RATIO 0.8 (1.0-2.7); ALKALINE PHOSPHATASE 132 U/L (46-116); ANION GAP 9 mmol/L (5-15); ASPARTATE AMINO TRANSFERASE 23 U/L (15-37); BILIRUBIN,TOTAL 0.5 MG/DL (0.2-1.0); BLOOD UREA NITROGEN 13 mg/dL (7-18); CALCIUM 9.3 MG/DL (8.5-10.1); CARBON DIOXIDE 26 MMOL/L (21-32); CHLORIDE 103 MMOL/L (98-107); CREATININE 0.6 MG/DL (0.55-1.30); SODIUM 138 MMOL/L (136-145)
[2019-03-07] MEDS ORDERED: Miralax 17gm pkt ORAL PRN (16:30)
[2019-03-07] MEDS ORDERED: Nitroglycerin Subl 0.4mg tab SL PRN (16:30)
[2019-03-07] MEDS ORDERED: Morphine Sulfate 2mg/ml Inj(IV/IM USE ONLY) IVP PRN (16:30)
[2019-03-07] MEDS ORDERED: AMITRIPTYLINE25 MG ORAL (17:29)
[2019-03-07] MEDS: D5NS 1,000 ML IV SCH (17:46)
--- NOTE | 2019-03-07 17:49 | Diagnostic Imaging Report ---
Indication: Abdominal pain Technique: John-scale and duplex images of the upper abdomen were obtained Comparison: none Findings: Gallbladder is unremarkable, without stones, wall thickening, nor pericholecystic fluid. Sonographic Terrazas's sign is negative. Common bile duct measures for mm in diameter. No intrahepatic biliary ductal dilatation. Liver demonstrates normal echogenicity, no focal abnormality. Portal vein and hepatic veins are patent. Pancreas is unremarkable. Spleen is unremarkable. Left kidney measures 10.9 cm in length. Right kidney measures 9.7 cm length. Both kidneys demonstrate normal echogenicity. There is no hydronephrosis. Left kidney demonstrates a 2.7 cm simple cyst . Non-aneurysmal abdominal aorta . Impression: Essentially unremarkable exam Incidental finding left renal cyst This agrees with the preliminary interpretation provided overnight by [facility]eradiology service.
[2019-03-07 17:50] VITALS: BP 129/89
--- NOTE | 2019-03-07 18:00 | NUR ---
NURSE NOTES: Received patient from Colin Holder. Patient being admitted to the floor from ED. Patient transported via gurney transferred self to bed via ambulation. noted with steady gait. Patient is AAAOx4. hard of hearing has B/L hearing aides in place. VSS. oriented to room and safety. patient stated she is Hoah[employer]ism and would not like to receive blood transfusion. she wanted that written on her white board. admission orders written by Dr. Ling. BEd locked to lowest position. Side rails X2 up for safety. call light within patients reach.
[2019-03-07] MEDS: Sucralfate 1gm tab ORAL SCH (18:29)
--- NOTE | 2019-03-07 19:41 | NUR ---
HAND-OFF: Report given to Colin Byrne. Plan of care endorsed.
--- NOTE | 2019-03-07 19:42 | NUR ---
Received report from Sarah Arzate RN. Pt is in the bed. No acute distress noted. Bed rails are up x3. Bed alarm is on. Bed is locked at the lowest position. Call light is within reach. RN explained the pt to use the call light if she ever wants to ambulate or go to bathroom. Pt acknowledged understanding.
[2019-03-07] MEDS ORDERED: Phytonadione 10 MG in D5W 55 ML IVPB SCH (20:00)
[2019-03-08] VITALS: BP 116/69
[2019-03-08 04:00] VITALS: BP 118/67
[2019-03-08] MEDS: D5NS 1,000 ML IV SCH (07:06)
--- NOTE | 2019-03-08 07:20 | NUR ---
HAND-OFF: Report given to Janel GEORGE.
--- NOTE | 2019-03-08 07:22 | NUR ---
NURSE NOTES: Received report from ARIEL Byrne. Patient in bed resting, no active s/s cardiac, respiratory distress noticed at this time. Patient on room air, AOx4, SR with HR 74. Endorsed NPO status until GI clearance, no vomiting during the night. IV on left hand 22G, asymptomatic, patent, intact, IV fluid running as prescribed rate. Bed in lowest position, side rails upx2, call light within reach. Will continue to monitor.
[2019-03-08 07:57] LABS: BASOPHILS % (AUTO) 0.9 % (0.0-2.0); EOSINOPHILS % (AUTO) 3.3 % (0.0-3.0); HEMATOCRIT 29.4 % (37.0-47.0); HEMOGLOBIN 9.1 G/DL (12.0-16.0); LYMPHOCYTES % (AUTO) 27.5 % (20.0-45.0); MEAN CORPUSCULAR VOLUME 78 FL (80-99); MONOCYTES % (AUTO) 9.8 % (1.0-10.0); NEUTROPHILS % (AUTO) 58.6 % (45.0-75.0); PLATELET COUNT 241 K/UL (150-450); RED BLOOD COUNT 3.75 M/UL (4.20-5.40); RED CELL DISTRIBUTION WIDTH 12.5 % (11.6-14.8); WHITE BLOOD COUNT 4.5 K/UL (4.8-10.8)
[2019-03-08 08:00] VITALS: BP 145/58
[2019-03-08 08:18] LABS: ALANINE AMINOTRANSFERASE 23 U/L (12-78); ALBUMIN 2.8 G/DL (3.4-5.0); ALBUMIN/GLOBULIN RATIO 0.8 (1.0-2.7); ALKALINE PHOSPHATASE 113 U/L (46-116); AMYLASE 91 U/L (25-115); ANION GAP 9 mmol/L (5-15); ASPARTATE AMINO TRANSFERASE 21 U/L (15-37); BILIRUBIN,TOTAL 0.6 MG/DL (0.2-1.0); BLOOD UREA NITROGEN 11 mg/dL (7-18); CALCIUM 8.5 MG/DL (8.5-10.1); CARBON DIOXIDE 25 MMOL/L (21-32); CHLORIDE 107 MMOL/L (98-107); CREATININE 0.7 MG/DL (0.55-1.30); POTASSIUM 3.7 MMOL/L (3.5-5.1); SODIUM 141 MMOL/L (136-145)
[2019-03-08] MEDS: Sucralfate 1gm tab ORAL SCH ×3 (08:27→17:34)
--- NOTE | 2019-03-08 10:52 | Consultation ---
History of Present Illness General Date patient seen: Mar 08, 2019 Chief Complaint: Abdominal Pain Present Illness HPI 73 year old female with hx of of SBO, gastritis, hiatal hernia, pancreatitis, chronic constipation, CAD, HTN, presented to ER with CC of abdominal and chest pain pain. She stated that she had upper abdominal pain. she is admitted to telemetry for further evaluation. She has changed her diet recently and was wondering if eating meat has contributed to her symptoms. Allergies: Coded Allergies: Broccoli (Verified Allergy, Unknown, 08/10/18) IBUPROFEN (Verified Allergy, Unknown, 08/10/18) LACTOSE (Verified Allergy, Unknown, 08/10/18) Lactose intolerant MILK (Verified Allergy, Unknown, 08/10/18) ONION (Verified Allergy, Unknown, 08/10/18) ORANGE JUICE (Verified Allergy, Unknown, 08/10/18) TOMATO (Verified Allergy, Unknown, 08/10/18) Medication History Scheduled Amitriptyline HCl (Elavil*), 10 MG ORAL BEDTIME, (Reported) Dicyclomine Hcl* (Dicyclomine Hcl*), 10 MG ORAL QID Ondansetron Odt* (Zofran Odt*), 4 MG BC EVERY 8 HOURS Pantoprazole* (Pantoprazole*), 40 MG ORAL DAILY Pantoprazole* (Pantoprazole*), 40 MG ORAL BID Sucralfate* (Carafate*), 1 GM ORAL TID, (Reported) [Vit B12], Unknown Dose PO DAILY, (Reported) Scheduled PRN Simethicone* (Simethicone*), 80 MG ORAL NEEDED PRN for GAS PAIN, (Reported) Patient History Healthcare decision maker Resuscitation status Full Code Advanced Directive on File Past Medical/Surgical History Past Medical/Surgical History: (1) GERD (gastroesophageal reflux disease) (2) Constipation (3) HTN (hypertension) (4) PUD (peptic ulcer disease) (5) GI (gastrointestinal bleed) (6) SBO (small bowel obstruction) Review of Systems Endocrine: Reports: no symptoms Hematologic/Lymphatic: Reports: no symptoms All Other Systems: negative except mentioned in HPI Physical Exam General Appearance: WD/WN Lines, tubes and drains: peripheral HEENT: normocephalic, atraumatic Neck: non-tender, normal alignment Respiratory/Chest: chest wall non-tender, lungs clear Breasts: no masses Cardiovascular/Chest: normal peripheral pulses, normal rate Genitourinary/Rectal: normal genital exam Skin Exam: normal pigmentation 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 Last 24 Hour Vital Signs Date Time Temp Pulse Resp B/P (MAP) Pulse Ox O2 Delivery O2 Flow Rate FiO2 03/08/19 09:00 Room Air 03/08/19 08:00 106 03/08/19 08:00 97.9 82 20 145/58 (87) 96 03/08/19 04:00 97.7 74 20 118/67 (84) 97 03/08/19 04:00 72 03/08/19 00:00 96.6 79 20 116/69 (85) 98 03/08/19 00:00 73 03/07/19 21:00 Room Air 03/07/19 20:00 83 03/07/19 18:53 Room Air 03/07/19 17:50 97.9 101 20 129/89 (102) 97 03/07/19 11:50 97.5 21 163/81 99 Room Air 03/07/19 11:50 98 21 Room Air 03/07/19 11:09 97.5 98 21 163/81 (108) 99 Room Air Intake and Output 03/07/19 03/08/19 19:00 07:00 Intake Total 0 ml 825 ml Balance 0 ml 825 ml Intake Oral 0 ml IV Total 825 ml # Voids 2 # Bowel Movements 2 2 Laboratory Tests Test 03/07/19 14:40 03/07/19 15:25 03/08/19 05:36 Urine Color Pale yellow Urine Appearance Clear Urine pH 8 (4.5-8.0) Urine Specific Scott 1.010 (1.005-1.035) Urine Protein Negative (NEGATIVE) Urine Glucose (UA) Negative (NEGATIVE) Urine Ketones Negative (NEGATIVE) Urine Blood Negative (NEGATIVE) Urine Nitrite Negative (NEGATIVE) Urine Bilirubin Negative (NEGATIVE) Urine Urobilinogen Normal MG/DL (0.0-1.0) Urine Leukocyte Esterase 1+ (NEGATIVE) H Urine RBC 0-2 /HPF (0 - 2) Urine WBC 2-4 /HPF (0 - 2) Urine Squamous Epithelial Cells Few /LPF (NONE/OCC) Urine Bacteria Few /HPF (NONE) White Blood Count 8.8 K/UL (4.8-10.8) 4.5 K/UL (4.8-10.8) L Red Blood Count 4.62 M/UL (4.20-5.40) 3.75 M/UL (4.20-5.40) L Hemoglobin 11.1 G/DL (12.0-16.0) L 9.1 G/DL (12.0-16.0) L Hematocrit 35.8 % (37.0-47.0) L 29.4 % (37.0-47.0) L Mean Corpuscular Volume 78 FL (80-99) L 78 FL (80-99) L Mean Corpuscular Hemoglobin 24.0 PG (27.0-31.0) L 24.2 PG (27.0-31.0) L Mean Corpuscular Hemoglobin Concent 30.9 G/DL (32.0-36.0) L 30.9 G/DL (32.0-36.0) L Red Cell Distribution Width 13.9 % (11.6-14.8) 12.5 % (11.6-14.8) Platelet Count 296 K/UL (150-450) 241 K/UL (150-450) Mean Platelet Volume 7.4 FL (6.5-10.1) 7.7 FL (6.5-10.1) Neutrophils (%) (Auto) 83.5 % (45.0-75.0) H 58.6 % (45.0-75.0) Lymphocytes (%) (Auto) 9.3 % (20.0-45.0) L 27.5 % (20.0-45.0) Monocytes (%) (Auto) 6.1 % (1.0-10.0) 9.8 % (1.0-10.0) Eosinophils (%) (Auto) 0.7 % (0.0-3.0) 3.3 % (0.0-3.0) H Basophils (%) (Auto) 0.4 % (0.0-2.0) 0.9 % (0.0-2.0) Prothrombin Time 10.4 SEC (9.30-11.50) 10.4 SEC (9.30-11.50) Prothromb Time International Ratio 1.0 (0.9-1.1) 1.0 (0.9-1.1) Activated Partial Thromboplast Time 25 SEC (23-33) 25 SEC (23-33) Sodium Level 138 MMOL/L (136-145) 141 MMOL/L (136-145) Potassium Level 4.0 MMOL/L (3.5-5.1) 3.7 MMOL/L (3.5-5.1) Chloride Level 103 MMOL/L (98-107) 107 MMOL/L (98-107) Carbon Dioxide Level 26 MMOL/L (21-32) 25 MMOL/L (21-32) Anion Gap 9 mmol/L (5-15) 9 mmol/L (5-15) Blood Urea Nitrogen 13 mg/dL (7-18) 11 mg/dL (7-18) Creatinine 0.6 MG/DL (0.55-1.30) 0.7 MG/DL (0.55-1.30) Estimat Glomerular Filtration Rate mL/min (>60) mL/min (>60) Glucose Level 98 MG/DL (74-106) 85 MG/DL (74-106) Calcium Level 9.3 MG/DL (8.5-10.1) 8.5 MG/DL (8.5-10.1) Total Bilirubin 0.5 MG/DL (0.2-1.0) 0.6 MG/DL (0.2-1.0) Aspartate Amino Transf (AST/SGOT) 23 U/L (15-37) 21 U/L (15-37) Alanine Aminotransferase (ALT/SGPT) 28 U/L (12-78) 23 U/L (12-78) Alkaline Phosphatase 132 U/L (46-116) H 113 U/L (46-116) Total Protein 7.5 G/DL (6.4-8.2) 6.4 G/DL (6.4-8.2) Albumin 3.4 G/DL (3.4-5.0) 2.8 G/DL (3.4-5.0) L Globulin 4.1 g/dL 3.6 g/dL Albumin/Globulin Ratio 0.8 (1.0-2.7) L 0.8 (1.0-2.7) L Lipase 147 U/L (73-393) 113 U/L (73-393) Amylase Level 91 U/L (25-115) Height (Feet): 5 Height (Inches): 2.00 Weight (Pounds): 164 Medications Current Medications Medications (Trade) Dose Ordered Sig/Radha Route PRN Reason Start Time Stop Time Status Last Admin Dose Admin Acetaminophen (Tylenol) 650 mg Q4H PRN ORAL fever 03/07/19 16:30 04/06/19 16:29 Dextrose (Dextrose 50%) 25 ml Q30M PRN IV Hypoglycemia 03/07/19 16:30 04/06/19 16:29 Dextrose (Dextrose 50%) 50 ml Q30M PRN IV Hypoglycemia 03/07/19 16:30 04/06/19 16:29 Dextrose/Sodium Chloride 1,000 ml @ 75 mls/hr [id number] IV 03/07/19 17:46 04/06/19 17:45 03/07/19 17:46 Diphenhydramine HCl (Benadryl) 25 mg Q6H PRN ORAL Itching/Pruritis 03/07/19 16:30 04/06/19 16:29 Morphine Sulfate (Morphine Sulfate) 2 mg Q4H PRN IVP severe Pain (Pain Scale 7-10) 03/07/19 16:30 03/14/19 16:29 Nitroglycerin (Ntg) 0.4 mg Q5M X 3 DOSES PRN SL Prn Chest Pain 03/07/19 16:30 04/06/19 16:29 Ondansetron HCl (Zofran) 4 mg Q6H PRN IVP Nausea & Vomiting 03/07/19 16:30 04/06/19 16:29 Polyethylene Glycol (Miralax) 17 gm HSPRN PRN ORAL Constipation 03/07/19 16:30 04/06/19 16:29 Sucralfate (Carafate) 1 gm TID ORAL 03/07/19 18:00 04/06/19 17:59 03/08/19 08:27 Temazepam (Restoril) 15 mg HSPRN PRN ORAL Insomnia 03/07/19 16:30 03/14/19 16:29 Assessment/Plan Problem List: (1) ACS (acute coronary syndrome) ICD Codes: I20.0 - Unstable angina SNOMED: 086261153 (2) GERD (gastroesophageal reflux disease) ICD Codes: K21.9 - Gastro-esophageal reflux disease without esophagitis SNOMED: 333509097 (3) HTN (hypertension) ICD Codes: I10 - Essential (primary) hypertension SNOMED: 52405547 (4) Hiatal hernia ICD Codes: K44.9 - Hiatal hernia SNOMED: 50879008 Assessment/Plan: serial ekg, troponin cardiology evaluation GI evaluation adjust pt's GI meds dvt prophylaxis. Chano Ling MD Mar 08, 2019 10:52
[2019-03-08 12:00] VITALS: BP 128/63
--- NOTE | 2019-03-08 13:05 | Diagnostic Imaging Report ---
Indication: Abdominal pain Technique: Supine view of the abdomen Comparison: none Findings: Gas pattern is unremarkable. No masses or unusual calcifications. There is again demonstrated marked sclerosis of the left proximal femur. Impression: No acute process
--- NOTE | 2019-03-08 13:10 | GI Initial Consult Note ---
History of Present Illness General Date patient seen: Mar 08, 2019 Time patient seen: 13:06 Reason for Hospitalization: Abdominal Pain Referring physician: DESTINEY PEDRAZA Reason for Consultation: ABDOMINAL PAIN Present Illness HPI Patient is a 73-year-old female presents after increased epigastric pain. Patient had gradual onset of symptoms. Pain was localized to the left lower and upper abdomen. She had multiple episodes of similar to previous pain. She denies any vomiting. She had some associated chest discomfort. She reports having small amount of dark-colored emesis. Similar symptoms in the past. Previous history of irritable bowel. Denies bloody stool. GI consulted for reported epigastric pain. Patient is known to us, history of hypertension hyperlipidemia, CAD presents today with complaint of epigastric pain. According to the patient, the patient has been refraining from eating meat for the past 2 months. Her primary doctor recommended her to eat some meat. Patient stated she ate some in addition to some chocolate cake which caused her current onset of symptoms. At time of evaluation, the patient had complaint of abdominal discomfort and improved abdominal pain. She was hesitant to advance her . Denied any nausea vomiting constipation or diarrhea. The patient had a endoscopy and colonoscopy earlier this year with a summary of findings noted as below. SUMMARY OF FINDINGS: 1. A 3-cm hiatal hernia. 2. Distal esophageal ring. 3. GE junction was found at about 30 cm from the incisors, so short esophagus. 4. Multiple gastric polyps, most probably fundic gland polyps. 5. Gastritis, status post biopsy. 6. Fair colonic prep without any obvious findings. 7. Internal hemorrhoids. Home Meds Active Scripts Dicyclomine Hcl* (DICYCLOMINE HCL*) 10 Mg Capsule, 10 MG ORAL QID, #20 CAP Prov:Sebas Alcocer MD 03/07/19 Ondansetron Odt* (ZOFRAN ODT*) 4 Mg Tab.rapdis, 4 MG BC EVERY 8 HOURS, #10 TAB 0 Refills Prov:Sebas Alcocer MD 03/07/19 Pantoprazole* (PANTOPRAZOLE*) 40 Mg Tablet., 40 MG ORAL BID for 30 Days, TAB Prov:Chano Ling MD 02/03/19 Pantoprazole* (PANTOPRAZOLE*) 40 Mg Tablet., 40 MG ORAL DAILY, #60 TAB Prov:Lux Torres MD 01/24/19 Reported Medications Amitriptyline HCl (ELAVIL*) 25 Mg Tablet, 10 MG ORAL BEDTIME, TAB 03/07/19 Simethicone* (SIMETHICONE*) 80 Mg Tab.chew, 80 MG ORAL NEEDED PRN for GAS PAIN, #20 TAB 0 Refills 02/01/19 [Vit B12] No Conflict Check, PO DAILY 12/07/18 Sucralfate* (CARAFATE*) 1 Gm Tablet, 1 GM ORAL TID, TAB 11/06/18 Med list reviewed/reconciled: Yes Allergies: Coded Allergies: Broccoli (Verified Allergy, Unknown, 08/10/18) IBUPROFEN (Verified Allergy, Unknown, 08/10/18) LACTOSE (Verified Allergy, Unknown, 08/10/18) Lactose intolerant MILK (Verified Allergy, Unknown, 08/10/18) ONION (Verified Allergy, Unknown, 08/10/18) ORANGE JUICE (Verified Allergy, Unknown, 08/10/18) TOMATO (Verified Allergy, Unknown, 08/10/18) Patient History Limited by: medical condition History Provided By: Patient PMH Narrative Past Medical History: see triage record Reviewed Nursing Documentation: PMH: Agreed; PSxH: Agreed Nursing Documentation-PMH Past Medical History: No History, Except For Hx Cardiac Problems: Yes - tachycardia Hx Hypertension: No Hx Pacemaker: No Hx Asthma: No Hx COPD: No Hx Diabetes: No Hx Cancer: No Hx Gastrointestinal Problems: Yes Hx Dialysis: No Hx Neurological Problems: No Hx Cerebrovascular Accident: No Hx Seizures: No Social History: Denies: smoking, alcohol use, drug use, other Review of Systems All Other Systems: negative except mentioned in HPI Physical Exam Vital Signs Date Time Temp Pulse Resp B/P (MAP) Pulse Ox O2 Delivery O2 Flow Rate FiO2 03/07/19 11:09 97.5 98 21 163/81 (108) 99 Room Air Sp02 EP Interpretation: reviewed, normal Labs Laboratory Tests Test 03/07/19 14:40 03/07/19 15:25 03/08/19 05:36 Urine Color Pale yellow Urine Appearance Clear Urine pH 8 (4.5-8.0) Urine Specific [place] 1.010 (1.005-1.035) Urine Protein Negative (NEGATIVE) Urine Glucose (UA) Negative (NEGATIVE) Urine Ketones Negative (NEGATIVE) Urine Blood Negative (NEGATIVE) Urine Nitrite Negative (NEGATIVE) Urine Bilirubin Negative (NEGATIVE) Urine Urobilinogen Normal MG/DL (0.0-1.0) Urine Leukocyte Esterase 1+ (NEGATIVE) H Urine RBC 0-2 /HPF (0 - 2) Urine WBC 2-4 /HPF (0 - 2) Urine Squamous Epithelial Cells Few /LPF (NONE/OCC) Urine Bacteria Few /HPF (NONE) White Blood Count 8.8 K/UL (4.8-10.8) 4.5 K/UL (4.8-10.8) L Red Blood Count 4.62 M/UL (4.20-5.40) 3.75 M/UL (4.20-5.40) L Hemoglobin 11.1 G/DL (12.0-16.0) L 9.1 G/DL (12.0-16.0) L Hematocrit 35.8 % (37.0-47.0) L 29.4 % (37.0-47.0) L Mean Corpuscular Volume 78 FL (80-99) L 78 FL (80-99) L Mean Corpuscular Hemoglobin 24.0 PG (27.0-31.0) L 24.2 PG (27.0-31.0) L Mean Corpuscular Hemoglobin Concent 30.9 G/DL (32.0-36.0) L 30.9 G/DL (32.0-36.0) L Red Cell Distribution Width 13.9 % (11.6-14.8) 12.5 % (11.6-14.8) Platelet Count 296 K/UL (150-450) 241 K/UL (150-450) Mean Platelet Volume 7.4 FL (6.5-10.1) 7.7 FL (6.5-10.1) Neutrophils (%) (Auto) 83.5 % (45.0-75.0) H 58.6 % (45.0-75.0) Lymphocytes (%) (Auto) 9.3 % (20.0-45.0) L 27.5 % (20.0-45.0) Monocytes (%) (Auto) 6.1 % (1.0-10.0) 9.8 % (1.0-10.0) Eosinophils (%) (Auto) 0.7 % (0.0-3.0) 3.3 % (0.0-3.0) H Basophils (%) (Auto) 0.4 % (0.0-2.0) 0.9 % (0.0-2.0) Prothrombin Time 10.4 SEC (9.30-11.50) 10.4 SEC (9.30-11.50) Prothromb Time International Ratio 1.0 (0.9-1.1) 1.0 (0.9-1.1) Activated Partial Thromboplast Time 25 SEC (23-33) 25 SEC (23-33) Sodium Level 138 MMOL/L (136-145) 141 MMOL/L (136-145) Potassium Level 4.0 MMOL/L (3.5-5.1) 3.7 MMOL/L (3.5-5.1) Chloride Level 103 MMOL/L (98-107) 107 MMOL/L (98-107) Carbon Dioxide Level 26 MMOL/L (21-32) 25 MMOL/L (21-32) Anion Gap 9 mmol/L (5-15) 9 mmol/L (5-15) Blood Urea Nitrogen 13 mg/dL (7-18) 11 mg/dL (7-18) Creatinine 0.6 MG/DL (0.55-1.30) 0.7 MG/DL (0.55-1.30) Estimat Glomerular Filtration Rate mL/min (>60) mL/min (>60) Glucose Level 98 MG/DL (74-106) 85 MG/DL (74-106) Calcium Level 9.3 MG/DL (8.5-10.1) 8.5 MG/DL (8.5-10.1) Total Bilirubin 0.5 MG/DL (0.2-1.0) 0.6 MG/DL (0.2-1.0) Aspartate Amino Transf (AST/SGOT) 23 U/L (15-37) 21 U/L (15-37) Alanine Aminotransferase (ALT/SGPT) 28 U/L (12-78) 23 U/L (12-78) Alkaline Phosphatase 132 U/L (46-116) H 113 U/L (46-116) Total Protein 7.5 G/DL (6.4-8.2) 6.4 G/DL (6.4-8.2) Albumin 3.4 G/DL (3.4-5.0) 2.8 G/DL (3.4-5.0) L Globulin 4.1 g/dL 3.6 g/dL Albumin/Globulin Ratio 0.8 (1.0-2.7) L 0.8 (1.0-2.7) L Lipase 147 U/L (73-393) 113 U/L (73-393) Amylase Level 91 U/L (25-115) General Appearance: well appearing, no apparent distress, alert Head: normocephalic EENT: PERRL/EOMI, normal ENT inspection Neck: supple Respiratory: normal breath sounds, no respiratory distress Cardiovascular: normal rate Gastrointestinal: normal inspection, non tender, soft, normal bowel sounds, non -distended Rectal: deferred Genitourinary: no CVA tenderness Musculoskeletal: normal inspection, back normal Neurologic: normal inspection, alert, oriented x3, responsive Psychiatric: normal inspection, judgement/insight normal, memory normal Skin: normal inspection, normal color, no rash, warm/dry, palpation normal, well hydrated Lymphatic: normal inspection, no adenopathy Current Medications Current Medications Medications (Trade) Dose Ordered Sig/Radha Route PRN Reason Start Time Stop Time Status Last Admin Dose Admin Acetaminophen (Tylenol) 650 mg Q4H PRN ORAL fever 03/07/19 16:30 04/06/19 16:29 Dextrose (Dextrose 50%) 25 ml Q30M PRN IV Hypoglycemia 03/07/19 16:30 04/06/19 16:29 Dextrose (Dextrose 50%) 50 ml Q30M PRN IV Hypoglycemia 03/07/19 16:30 04/06/19 16:29 Dextrose/Sodium Chloride 1,000 ml @ 75 mls/hr [id number] IV 03/07/19 17:46 04/06/19 17:45 03/07/19 17:46 Diphenhydramine HCl (Benadryl) 25 mg Q6H PRN ORAL Itching/Pruritis 03/07/19 16:30 04/06/19 16:29 Morphine Sulfate (Morphine Sulfate) 2 mg Q4H PRN IVP severe Pain (Pain Scale 7-10) 03/07/19 16:30 03/14/19 16:29 Nitroglycerin (Ntg) 0.4 mg Q5M X 3 DOSES PRN SL Prn Chest Pain 03/07/19 16:30 04/06/19 16:29 Ondansetron HCl (Zofran) 4 mg Q6H PRN IVP Nausea & Vomiting 03/07/19 16:30 04/06/19 16:29 Polyethylene Glycol (Miralax) 17 gm HSPRN PRN ORAL Constipation 03/07/19 16:30 04/06/19 16:29 Sucralfate (Carafate) 1 gm TID ORAL 03/07/19 18:00 04/06/19 17:59 03/08/19 12:53 Temazepam (Restoril) 15 mg HSPRN PRN ORAL Insomnia 03/07/19 16:30 03/14/19 16:29 GI: Plan Problems: (1) Constipation (2) GERD (gastroesophageal reflux disease) (3) HTN (hypertension) (4) Gastroenteritis (5) Hiatal hernia Plan No plans for GI procedures at this time Symptomatic treatment clear liquid trial today, advance diet as tolerated PPI Zofran as needed Bowel regimen of Colace and MiraLAX Follow labs Discussed with Dr. Zheng. Thank you for this patient referral, we will follow. The patient was seen and examined at bedside and all new and available data was reviewed in the patients chart. I agree with the above findings, impression and plan. (Patient seen earlier today. Signature stamp does not reflect patient encounter time.). - MD Arlin Kumar,[facility] [employer]UM[employer] HAND[employer]ER Mar 08, 2019 13:10
--- NOTE | 2019-03-08 14:27 | NUR ---
CASE MANAGEMENT:INITIAL REVIEW 73 YR OLD FEMALE FROM HOME CC: ABD PAIN SI: ACUTE CORONARY SYNDROME; GI BLEED; PEPTIC ULCER 97.6 98 21 163/81 99%RA IS: IV ZOFRAN X1 IV PEPCID X1 IV ROCEPHIN X1 IV PROTONIX X1 IV MORPHINE SULFATE X1 : 2E TELE UNIT DCP: RETURN HOME WHEN MEDICALLY CLEARED CASE MANAGEMENT:REVIEW 03/08/19 SI: ACUTE CORONARY SYNDROME; GI BLEED; PEPTIC ULCER 97.9 82 20 118/67 97%RA H/H 9.129.4; IS: IV DEXTROSE/NS @75HR SUCRALFATE PO TID COLACE PO TID MIRALAX PO HS : 2E TELE UNIT DCP: RETURN HOME WHEN MEDICALLY CLEARED
[2019-03-08] MEDS ORDERED: AMITRIPTYLINE H10 MG ORAL (15:51)
[2019-03-08 16:00] VITALS: BP 118/65
[2019-03-08] MEDS: Docusate 100mg cap ORAL SCH (17:34)
--- NOTE | 2019-03-08 17:55 | NUR ---
NURSE NOTES: VIOLA Licea, made aware patient tolerating PO intake. Per VIOLA Licea, discontinue IV fluid. Order noted, entered, carried out.
--- NOTE | 2019-03-08 19:11 | History & Physical ---
History and Physical History & Physicial Dictated for Int Med-Dr Calvillo no. [id number]. Angus Brooks MD Mar 08, 2019 19:11
--- NOTE | 2019-03-08 19:23 | NUR ---
HAND-OFF: Report given to ARIEL Hawyard.
--- NOTE | 2019-03-08 19:25 | NUR ---
NURSE NOTES: Received patient from ARIEL Islas. Patient resting in bed, alert and talkative. No signs of distress or pain noted. Patient able to make needs known and ambulatory. IV site checked, patent and intact, no signs of erythema, bleeding, or infiltration. Bed in lowest position, brakes on, siderails up x2, and call light within reach. Will continue to monitor.
[2019-03-08 20:00] VITALS: BP 150/97
[2019-03-08] MEDS ORDERED: Miralax 17gm pkt ORAL SCH (21:00)
--- NOTE | 2019-03-08 22:00 | History and Physical Report ---
DATE OF ADMISSION: 03/07/2019 CHIEF COMPLAINT: The patient is a 73-year-old female, who presents with a chief complaint of epigastric pain. HISTORY OF PRESENT ILLNESS: The patient was admitted to [facility] from January 31, 2019 to February 04, 2019. The patient was admitted with atypical chest pain and epigastric pain. Please see history and physical and discharge summary dictated at that time. The patient presented to [place] emergency room complaining of a one-day history of nausea and vomiting. The patient also was having epigastric pain. The patient states she had some dark colored emesis. The patient was admitted with nausea and vomiting, epigastric pain and possible hematemesis. REVIEW OF SYSTEMS: CONSTITUTIONAL: The patient denies weight loss or weight gain. The patient denies fevers or chills. HEENT: The patient denies ear or throat pain. The patient denies headache. CARDIOVASCULAR: The patient denies palpitations or chest pain. CHEST: The patient denies wheeze or shortness of breath. ABDOMEN: The patient complains of nausea and vomiting as above. The patient complains of epigastric pain as above. The patient complains of possible hematemesis as above. The patient denies diarrhea or constipation. GENITOURINARY: The patient denies dysuria or increased frequency of urination. NEUROMUSCULAR: The patient denies seizures or generalized weakness. PAST MEDICAL HISTORY: Significant for: 1. Gastritis, status post endoscopy during previous hospitalization. 2. Gastroesophageal reflux disease. 3. Hiatal hernia. 4. Hypertension. 5. Paget's disease of left femur. 6. Osteoarthritis of spine. PAST SURGICAL HISTORY: Significant for exploratory laparotomy for tuboovarian abscess in 1972. CURRENT MEDICATIONS: 1. Amitriptyline 20 mg p.o. at bedtime. 2. Dicyclomine 10 mg p.o. q.i.d. 3. Zofran 4 mg p.o. q.8 hours p.r.n. 4. Protonix 40 mg p.o. daily. 5. Carafate 1 g p.o. three times daily. ALLERGIES: Ibuprofen. SOCIAL HISTORY: The patient is single and lives alone. The patient denies alcohol or tobacco use. PHYSICAL EXAMINATION: VITAL SIGNS: Temperature 97.5, respirations 21, pulse 98, blood pressure 163/81. GENERAL: The patient is well-developed and well-nourished female, in no apparent distress. HEENT: Eyes, pupils are equal and responsive to light and accommodation. Extraocular movements are intact. NECK: Supple without lymphadenopathy. CHEST: Lungs are clear to auscultation bilaterally without wheezes or rales. CARDIOVASCULAR: Regular and rate. S1 and S2 are normal without murmurs, rubs, or gallops. ABDOMEN: Soft, tender over the epigastric region without rebound or guarding noted. No evidence of hepatosplenomegaly. Currently, no rebound or guarding noted. EXTREMITIES: Negative for clubbing, cyanosis, or edema. RECTAL/GENITAL: Not performed. NEUROLOGIC: Cranial nerves II through XII are grossly intact without focal deficits. Motor strength is 5/5 bilaterally. Deep tendon return reflexes are 2+ plantar. DIAGNOSTIC DATA: Abdominal ultrasound was reported as essentially normal. An abdominal x-ray failed to demonstrate acute obstruction. LABORATORY STUDIES: WBC 8.8, hemoglobin 11.1, hematocrit 35.8, platelets 296,000. Sodium 138, potassium 4.0, chloride 103, CO2 26, BUN 13, creatinine 0.6, glucose 98. Urinalysis showed 1+ leukocyte esterase. ASSESSMENT: This is a 73-year-old female. 1. Epigastric pain. 2. Nausea with vomiting. 3. Possible hematemesis. 4. Gastritis. 5. Gastroesophageal reflux disease. 6. Hypertension. 7. Hiatal hernia. 8. Paget's disease of the left femur. 9. Osteoarthritis of spine. TREATMENT: 1. Epigastric pain/hematemesis/nausea/vomiting. A Gastroenterology consultation has been obtained with Dr. Patrick Zheng. The patient may require endoscopy during this hospitalization. The patient has previous endoscopy in June of 2018. Continue Carafate and Protonix as above. 2. Gastroesophageal reflux/gastritis. Continue Protonix and Carafate as above. 3. Hypertension. The patient is currently receiving clonidine as needed for systolic greater than 150 or diastolic greater than 100. 4. Hiatal hernia. 5. Paget's disease of left femur. 6. Osteoarthritis of spine. Angus Brooks M.D. DR: Savita JOB#: [id number] CC:
[2019-03-09] VITALS: BP 132/72
[2019-03-09 04:00] VITALS: BP 114/58
--- NOTE | 2019-03-09 06:37 | NUR ---
NURSE NOTES: Paged Dr. Calvillo regarding patient's request to advance diet from liquids to solids. Patient also mentioned request to discuss discharge planning with doctor as no longer complaining of chest pain. Awaiting call back. Will continue to monitor.
--- NOTE | 2019-03-09 06:37 | NUR ---
PagedNURSE NOTES: Addendum: 03/09/19 at 0638 by Yesy Aguilar RN Accidentally pressed entered too many times. Will redo note.
--- NOTE | 2019-03-09 06:58 | NUR ---
NURSE NOTES: Received orders from Dr. Calvillo for regular diet orders. Noted and carried out. Will continue to monitor.
--- NOTE | 2019-03-09 07:14 | NUR ---
HAND-OFF: Report given to ARIEL Rojas. Patient in stable condition. Plan of care endorsed.
--- NOTE | 2019-03-09 07:15 | NUR ---
NURSE NOTES: Received bedside report from Yesy GEORGE. Pt. in bed, awake, a/o x 4. No sign of distress. Denies pain at present. IV at left hand #22g. in placed patent/intact SL. Pleasant and cooperative with care. Will cont. to monitor.
[2019-03-09 07:17] LABS: BASOPHILS % (AUTO) 0.9 % (0.0-2.0); EOSINOPHILS % (AUTO) 4.3 % (0.0-3.0); HEMATOCRIT 29.3 % (37.0-47.0); HEMOGLOBIN 9.3 G/DL (12.0-16.0); LYMPHOCYTES % (AUTO) 40.8 % (20.0-45.0); MEAN CORPUSCULAR VOLUME 76 FL (80-99); MONOCYTES % (AUTO) 13.6 % (1.0-10.0); NEUTROPHILS % (AUTO) 40.4 % (45.0-75.0); PLATELET COUNT 256 K/UL (150-450); RED BLOOD COUNT 3.83 M/UL (4.20-5.40); WHITE BLOOD COUNT 3.5 K/UL (4.8-10.8)
[2019-03-09 07:21] LABS: ANION GAP 10 mmol/L (5-15); BLOOD UREA NITROGEN 5 mg/dL (7-18); CARBON DIOXIDE 27 MMOL/L (21-32); CHLORIDE 107 MMOL/L (98-107); CREATININE 0.7 MG/DL (0.55-1.30); POTASSIUM 3.3 MMOL/L (3.5-5.1); SODIUM 143 MMOL/L (136-145)
[2019-03-09 08:00] VITALS: BP 119/63
[2019-03-09] MEDS: Sucralfate 1gm tab ORAL SCH ×2 (09:07→13:25)
[2019-03-09] MEDS: Docusate 100mg cap ORAL SCH ×2 (09:07→13:25)
--- NOTE | 2019-03-09 11:26 | NUR ---
CASE MANAGEMENT:REVIEW 03/09/19 SI: CONSTIPATION; GERD; PEPTIC ULCER 98.2 83 18 119/63 98% RA IS: SUCRALFATE PO TID COLACE PO TID MIRALAX PO HS : 2E TELE UNIT DCP: RETURN HOME WHEN MEDICALLY CLEARED
--- NOTE | 2019-03-09 11:28 | Diagnostic Imaging Report ---
APPROVED REPORT CPT Code: 91411 Present Symptoms Comments: Chest Pain BILATERAL: Imaging reveals a patent deep venous system bilaterally. There is no evidence of thrombus within the common femoral, superficial femoral, popliteal or tibial segments. The greater saphenous veins are within normal limits. Doppler indicates normal spontaneous flow within these segments.
[2019-03-09] MEDS ORDERED: MIRALAX119 GM ORAL (11:38)
[2019-03-09] MEDS ORDERED: COLACE100 MG ORAL (11:38)
--- NOTE | 2019-03-09 11:39 | Pulmonology Progress Note ---
Assessment/Plan Problems: (1) ACS (acute coronary syndrome) (2) GERD (gastroesophageal reflux disease) (3) HTN (hypertension) (4) Hiatal hernia Assessment/Plan all reviewed doing better BP controlled dc home with laxatives All medications and treatment were reviewed. Subjective ROS Limited/Unobtainable: No Constitutional: Reports: no symptoms HEENT: Repors: no symptoms Respiratory: Reports: no symptoms Allergies: Coded Allergies: Broccoli (Verified Allergy, Unknown, 08/10/18) IBUPROFEN (Verified Allergy, Unknown, 08/10/18) LACTOSE (Verified Allergy, Unknown, 08/10/18) Lactose intolerant MILK (Verified Allergy, Unknown, 08/10/18) ONION (Verified Allergy, Unknown, 08/10/18) ORANGE JUICE (Verified Allergy, Unknown, 08/10/18) TOMATO (Verified Allergy, Unknown, 08/10/18) Objective Last 24 Hour Vital Signs Date Time Temp Pulse Resp B/P (MAP) Pulse Ox O2 Delivery O2 Flow Rate FiO2 03/09/19 09:00 Room Air 03/09/19 08:00 98.2 83 18 119/63 (81) 98 03/09/19 07:50 80 03/09/19 04:00 96.5 73 16 114/58 (76) 95 03/09/19 04:00 70 03/09/19 00:00 68 03/09/19 00:00 98.2 75 16 132/72 (92) 99 03/08/19 21:00 Room Air 03/08/19 20:00 70 03/08/19 20:00 96.4 96 18 150/97 (114) 99 03/08/19 16:00 72 03/08/19 16:00 97.7 75 18 118/65 (82) 100 03/08/19 12:00 97.6 90 20 128/63 (84) 100 03/08/19 12:00 66 Intake and Output 03/08/19 03/09/19 19:00 07:00 Intake Total 240 ml 240 ml Balance 240 ml 240 ml Intake Oral 240 ml 240 ml # Voids 4 2 # Bowel Movements 1 General Appearance: WD/WN HEENT: normocephalic, atraumatic Respiratory/Chest: chest wall non-tender, lungs clear, normal breath sounds Cardiovascular: normal peripheral pulses, normal rate, regular rhythm Abdomen: normal bowel sounds, soft, non tender, no organomegaly Genitourinary: normal external genitalia Skin: no rash Neurologic/Psychiatric: 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 grossly normal Lymphatic: no neck adenopathy Laboratory Tests 03/09/19 05:35: White Blood Count 3.5L, Red Blood Count 3.83L, Hemoglobin 9.3L, Hematocrit 29.3L , Mean Corpuscular Volume 76L, Mean Corpuscular Hemoglobin 24.3L, Mean Corpuscular Hemoglobin Concent 31.8L, Red Cell Distribution Width 14.0, Platelet Count 256, Mean Platelet Volume 8.0, Neutrophils (%) (Auto) 40.4L, Lymphocytes (%) (Auto) 40.8, Monocytes (%) (Auto) 13.6H, Eosinophils (%) (Auto) 4.3H, Basophils (%) (Auto) 0.9, Sodium Level 143, Potassium Level 3.3L, Chloride Level 107, Carbon Dioxide Level 27, Anion Gap 10, Blood Urea Nitrogen 5L, Creatinine 0.7, Estimat Glomerular Filtration Rate , Glucose Level 82, Calcium Level 9.0 Current Medications Medications (Trade) Dose Ordered Sig/Radha Route PRN Reason Start Time Stop Time Status Last Admin Dose Admin Acetaminophen (Tylenol) 650 mg Q4H PRN ORAL fever 03/07/19 16:30 04/06/19 16:29 Dextrose (Dextrose 50%) 25 ml Q30M PRN IV Hypoglycemia 03/07/19 16:30 04/06/19 16:29 Dextrose (Dextrose 50%) 50 ml Q30M PRN IV Hypoglycemia 03/07/19 16:30 04/06/19 16:29 Diphenhydramine HCl (Benadryl) 25 mg Q6H PRN ORAL Itching/Pruritis 03/07/19 16:30 04/06/19 16:29 Docusate Sodium (Colace) 100 mg THREE TIMES A DAY ORAL 03/08/19 18:00 04/07/19 17:59 03/09/19 09:07 Morphine Sulfate (Morphine Sulfate) 2 mg Q4H PRN IVP severe Pain (Pain Scale 7-10) 03/07/19 16:30 03/14/19 16:29 Nitroglycerin (Ntg) 0.4 mg Q5M X 3 DOSES PRN SL Prn Chest Pain 03/07/19 16:30 04/06/19 16:29 Ondansetron HCl (Zofran) 4 mg Q6H PRN IVP Nausea & Vomiting 03/07/19 16:30 04/06/19 16:29 Polyethylene Glycol (Miralax) 17 gm BEDTIME ORAL 03/08/19 21:00 04/07/19 20:59 03/08/19 20:27 Polyethylene Glycol (Miralax) 17 gm HSPRN PRN ORAL Constipation 03/07/19 16:30 04/06/19 16:29 Sucralfate (Carafate) 1 gm TID ORAL 03/07/19 18:00 04/06/19 17:59 03/09/19 09:07 Temazepam (Restoril) 15 mg HSPRN PRN ORAL Insomnia 03/07/19 16:30 03/14/19 16:29 Chano Ling MD Mar 09, 2019 11:39
[2019-03-09 12:00] VITALS: BP 120/54
--- NOTE | 2019-03-09 12:49 | GI Progress Note ---
Assessment/Plan Problems: (1) Hiatal hernia ICD Codes: K44.9 - Hiatal hernia SNOMED: 06570425 (2) Gastroenteritis ICD Codes: K52.9 - Noninfective gastroenteritis and colitis, unspecified SNOMED: 59432630 (3) SBO (small bowel obstruction) ICD Codes: K56.69 - Other intestinal obstruction SNOMED: 023282399 (4) GI (gastrointestinal bleed) ICD Codes: K92.2 - GI (gastrointestinal bleed) SNOMED: 41751664 (5) GERD (gastroesophageal reflux disease) ICD Codes: K21.9 - Gastro-esophageal reflux disease without esophagitis SNOMED: 910198059 Status: stable Status Narrative Discussed with Dr. Zheng. Assessment/Plan No plans for GI procedures at this time okay for DC per GI standpoint Symptomatic treatment clear liquid trial today, advance diet as tolerated PPI Zofran as needed Bowel regimen of Colace and MiraLAX Follow labs outpatient GI procedures The patient was seen and examined at bedside and all new and available data was reviewed in the patients chart. I agree with the above findings, impression and plan. (Patient seen earlier today. Signature stamp does not reflect patient encounter time.). - Patrick Zheng MD Subjective Gastrointestinal/Abdominal: Reports: no symptoms Subjective abdominal pain improved Objective Last 24 Hour Vital Signs Date Time Temp Pulse Resp B/P (MAP) Pulse Ox O2 Delivery O2 Flow Rate FiO2 03/09/19 09:00 Room Air 03/09/19 08:00 98.2 83 18 119/63 (81) 98 03/09/19 07:50 80 03/09/19 04:00 96.5 73 16 114/58 (76) 95 03/09/19 04:00 70 03/09/19 00:00 68 03/09/19 00:00 98.2 75 16 132/72 (92) 99 03/08/19 21:00 Room Air 03/08/19 20:00 70 03/08/19 20:00 96.4 96 18 150/97 (114) 99 03/08/19 16:00 72 03/08/19 16:00 97.7 75 18 118/65 (82) 100 Intake and Output 03/08/19 03/09/19 19:00 07:00 Intake Total 240 ml 240 ml Balance 240 ml 240 ml Intake Oral 240 ml 240 ml # Voids 4 2 # Bowel Movements 1 Laboratory Tests Test 03/09/19 05:35 White Blood Count 3.5 K/UL (4.8-10.8) L Red Blood Count 3.83 M/UL (4.20-5.40) L Hemoglobin 9.3 G/DL (12.0-16.0) L Hematocrit 29.3 % (37.0-47.0) L Mean Corpuscular Volume 76 FL (80-99) L Mean Corpuscular Hemoglobin 24.3 PG (27.0-31.0) L Mean Corpuscular Hemoglobin Concent 31.8 G/DL (32.0-36.0) L Red Cell Distribution Width 14.0 % (11.6-14.8) Platelet Count 256 K/UL (150-450) Mean Platelet Volume 8.0 FL (6.5-10.1) Neutrophils (%) (Auto) 40.4 % (45.0-75.0) L Lymphocytes (%) (Auto) 40.8 % (20.0-45.0) Monocytes (%) (Auto) 13.6 % (1.0-10.0) H Eosinophils (%) (Auto) 4.3 % (0.0-3.0) H Basophils (%) (Auto) 0.9 % (0.0-2.0) Sodium Level 143 MMOL/L (136-145) Potassium Level 3.3 MMOL/L (3.5-5.1) L Chloride Level 107 MMOL/L (98-107) Carbon Dioxide Level 27 MMOL/L (21-32) Anion Gap 10 mmol/L (5-15) Blood Urea Nitrogen 5 mg/dL (7-18) L Creatinine 0.7 MG/DL (0.55-1.30) Estimat Glomerular Filtration Rate mL/min (>60) Glucose Level 82 MG/DL (74-106) Calcium Level 9.0 MG/DL (8.5-10.1) Height (Feet): 5 Height (Inches): 2.00 Weight (Pounds): 164 General Appearance: WD/WN, no apparent distress, alert Cardiovascular: normal rate Respiratory/Chest: normal breath sounds, no respiratory distress Abdominal Exam: normal bowel sounds, non tender, soft Extremities: normal range of motion, non-tender Oliveros,Juli-Vinayak INTELLIGENCE MANAGER Mar 09, 2019 12:49
--- NOTE | 2019-03-09 15:38 | NUR ---
HAND-OFF: Report given to Kenyatta GEORGE. Pt. to be discharge home.
--- NOTE | 2019-03-09 15:48 | Cardiology Progress Note ---
Assessment/Plan Assessment/Plan [id number] Objective Last 24 Hour Vital Signs Date Time Temp Pulse Resp B/P (MAP) Pulse Ox O2 Delivery O2 Flow Rate FiO2 03/09/19 12:00 97.5 87 18 120/54 (76) 99 03/09/19 11:44 127 03/09/19 09:00 Room Air 03/09/19 08:00 98.2 83 18 119/63 (81) 98 03/09/19 07:50 80 03/09/19 04:00 96.5 73 16 114/58 (76) 95 03/09/19 04:00 70 03/09/19 00:00 68 03/09/19 00:00 98.2 75 16 132/72 (92) 99 03/08/19 21:00 Room Air 03/08/19 20:00 70 03/08/19 20:00 96.4 96 18 150/97 (114) 99 03/08/19 16:00 72 03/08/19 16:00 97.7 75 18 118/65 (82) 100 Intake and Output 03/08/19 03/09/19 19:00 07:00 Intake Total 240 ml 240 ml Balance 240 ml 240 ml Intake Oral 240 ml 240 ml # Voids 4 2 # Bowel Movements 1 Laboratory Tests Test 03/09/19 05:35 White Blood Count 3.5 K/UL (4.8-10.8) L Red Blood Count 3.83 M/UL (4.20-5.40) L Hemoglobin 9.3 G/DL (12.0-16.0) L Hematocrit 29.3 % (37.0-47.0) L Mean Corpuscular Volume 76 FL (80-99) L Mean Corpuscular Hemoglobin 24.3 PG (27.0-31.0) L Mean Corpuscular Hemoglobin Concent 31.8 G/DL (32.0-36.0) L Red Cell Distribution Width 14.0 % (11.6-14.8) Platelet Count 256 K/UL (150-450) Mean Platelet Volume 8.0 FL (6.5-10.1) Neutrophils (%) (Auto) 40.4 % (45.0-75.0) L Lymphocytes (%) (Auto) 40.8 % (20.0-45.0) Monocytes (%) (Auto) 13.6 % (1.0-10.0) H Eosinophils (%) (Auto) 4.3 % (0.0-3.0) H Basophils (%) (Auto) 0.9 % (0.0-2.0) Sodium Level 143 MMOL/L (136-145) Potassium Level 3.3 MMOL/L (3.5-5.1) L Chloride Level 107 MMOL/L (98-107) Carbon Dioxide Level 27 MMOL/L (21-32) Anion Gap 10 mmol/L (5-15) Blood Urea Nitrogen 5 mg/dL (7-18) L Creatinine 0.7 MG/DL (0.55-1.30) Estimat Glomerular Filtration Rate mL/min (>60) Glucose Level 82 MG/DL (74-106) Calcium Level 9.0 MG/DL (8.5-10.1) Calderon Winters MD Mar 09, 2019 15:48
--- NOTE | 2019-03-09 16:19 | NUR ---
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
--- NOTE | 2019-03-09 16:37 | NUR ---
NURSE NOTES: Patient signed all discharge information with ARIEL Rojas. Previous nurse also took out IV, wristband, and cafeteria monitor. Patient in stable condition. No pain/SOB. Discharged safely via wheelchair to taxi.
--- NOTE | 2019-03-09 23:15 | Consultation ---
DATE OF CONSULTATION: 03/09/2019 CARDIOLOGY CONSULTATION CONSULTING PHYSICIAN: Calderon Winters M.D. REFERRING PHYSICIANS: 1. Chano Ling M.D. 2. Angus Brooks M.D. REASON FOR REFERRAL: Abdominal pain radiating to the chest. HISTORY OF PRESENT ILLNESS: This is an elderly female, who is known to me from prior evaluation and hospitalization here approximately two to three weeks ago. She presents basically with the same problem. For a while she was okay when she was avoiding meat. She restarted eating meat as she was told her iron level was low and once she started doing that, she started having some bouts of increasing lower abdominal pain. The patient basically feels like a childbirth pain and radiates up to the upper abdomen and eventually in the chest and she rates approximately 3 or 4 hours and every time this happens and eventually, she presents back to the emergency room here. She gets some morphine and states the pain is gone. At the present time, she is actually pain free. She no longer had any nausea, vomiting, or diarrhea. She does not have any PND or orthopnea, although she uses three pillows to objects. She has no dizziness or lightheadedness on standing. She is ambulatory and she walks around a lot and she does not experience the chest pain when she walks around. PAST MEDICAL HISTORY: Positive for history of atypical chest pain, history of gastroesophageal reflux, labyrinthitis, Paget disease of the bone, hiatal hernia, osteoarthritis, gastritis. In fact, she has had several hospitalizations at [facility]. She had myocardial perfusion imaging for 2019. There was no evidence of reversible defect. She had a CT coronary angiogram in March of 2018. It showed between 1 to 24% stenosis of the left main circumflex artery proximal. She had 1 to 24% in the mid RCA, 25 to 50 percent proximally, and 1 to 24% mid and distal disease. ALLERGIES: She is allergic to weiner leaves, ibuprofen, and onions. She has a history of lactose intolerance. SOCIAL HISTORY: She does not smoke or never did. Does not drink alcoholic beverages and does not use drugs. REVIEW OF SYSTEMS: GASTROINTESTINAL: As mentioned, she has nausea and vomiting and abdominal pain as mentioned. No bloody or black stool. GENITOURINARY: Negative. PULMONARY: Some coughing, which she attributes to postnasal drip from her sinuses. CONSTITUTIONAL: No fevers, chills, or night sweats. NEUROLOGICAL: Negative. PHYSICAL EXAMINATION: GENERAL: Shows to be elderly female, in no respiratory distress. She is sitting up and getting ready to be discharged home. VITAL SIGNS: Blood pressure is 120/54, heart rate of 87, temperature is 97.5, and respirations of 18. LUNGS: Clear to auscultation and percussion. CARDIAC: S1 is normal. S2 is normal. Regular rate and rhythm. No heaves, thrills, or gallops noted. ABDOMEN: Soft an d obese. Positive bowel sounds. Nontender. EXTREMITIES: There is no edema. NEUROLOGICAL: She is awake, alert, responsive. LABORATORY AND DIAGNOSTIC DATA: White count 3.5, hemoglobin of 9.3, and platelet count of 256,000. Her WBC a few days ago was 8.8 on . Her chemistry panel, her sodium is 143, potassium 3.3, chloride 107, bicarb 27, BUN of 5, and creatinine 0.5. Her liver function tests yesterday were normal. Her amylase was 91 and lipase was 113. She had a venous duplex study of the lower extremities that was reportedly negative. She had an electrocardiogram that showed normal sinus rhythm, normal QRS axis, and no ST or T-wave abnormalities of any significant degree and in comparison with her old EKG from November of 2018, the EKG is really unchanged. ASSESSMENT: 1. Epigastric pain. 2. History of [id number] coronary disease on CT coronary angiogram in March 2018. 3. Paget disease of the bone. 4. Hiatal hernia. 5. History of gastritis. 6. Intestinal migraines. PLAN: Dr. Ling and Dr. Brooks, this patient was seen in cardiac consultation. She really does not have any exertional chest pain. EKG is unchanged. She has had a cardiac workup at [facility] as noted above. She does not have any exertional discomfort of any kind. Unlikely, any of her symptoms at this time is cardiac. She has had this worked up on prior occasions before and no need for further workup at this time. The patient's workup will be limited. The patient has already been seen by Dr. Zheng. She was told as well on an outpatient visit that likely was "intestinal migraines" and she seems to think that her symptoms seem to occur when she takes meat that she has restarted taking because of the low blood count. She is Confucianism as well. In either case cardiac coleman, she is appears to be relatively stable and no further workup indicated at this time. Calderon Winters M.D. DR: RICHARD JOB#: [id number] CC:
--- NOTE | 2019-03-10 12:05 | Discharge Summary ---
Discharge Summary Discharge Summary _ DATE OF ADMISSION: 03/07/2019 DATE OF DISCHARGE: 03/09/2019 DISCHARGED BY: Dr. Calvillo REASON FOR ADMISSION: 73 years old female with past medical history of recurrent chest pain, gastritis , hiatal hernia, tachycardia, osteoarthritis, presented for evaluation due to epigastric pain. Patient reported gradual onset of symptoms. Pain was localized to left upper and lower abdomen. She reported multiple prior episodes of similar pain. She had some associated chest discomfort. She had a small amount of dark-colored emesis. Patient also admitted to prior history of irritable bowel syndrome. No blood in the stool , no blood in the emesis. On evaluation vital signs revealed elevated blood pressure 163/81, otherwise no fevers , pulse oximetry was stable on room air. Laboratory work-up revealed no leukocytosis, hemoglobin 11.1, hematocrit 35.8. Platelet count 296. Stable coagulation profile. Stable electrolytes and renal parameters. Glucose 98. Stable LFT and lipase. EKG revealed sinus rhythm, no acute ischemic changes. Urinalysis revealed +1 leukocyte esterase and few bacteria. Abdominal ultrasound was essentially unremarkable. Abdominal x-ray revealed no acute process. In emergency department patient received 2 H2 acid ricardo for presumed gastritis versus peptic ulcer disease. Patient subsequently admitted for further management/ CONSULTANTS: director of reservations Dr. Winters hospitalist GI specialist Dr. Zheng [facility] COURSE: Patient admitted to monitored floor. GI specialist followed. Patient had prior endoscopy and colonoscopy earlier this year with findings of 3 cm hiatal hernia, distal esophageal ring, GE junction at about 30 cm from the incisor, just short esophagus, multiply gastric polyps , most probably fundic gland polyps, gastritis, status post biopsy, internal hemorrhoids. Fair colonic preparation without any obvious findings. GI prophylaxis with PPI provided. Carafate added. Pain management was addressed, and pain was controlled. Antiemetic were on board as needed. Bowel regimen instituted. No plan for GI procedure at this time. Patient started on clear liquid diet and was advanced as tolerated. Symptomatic treatment provided. GI specialist recommended outpatient GI procedure. Hemoglobin and hematocrit were closely monitored with goal to keep hemoglobin above 7, prior to discharge hemoglobin 9.8, hematocrit 29.3. Hearing Aid Specialist seen and evaluated patient. According to director of reservations, patient's symptoms all were GI related and cardiac coleman she appeared to be stable. Patient had a cardiac work-up at [facility] at March 2018 , which revealed mild to moderate coronary disease per CT coronary angiogram. Patient denied any exertional discomfort, no exertional chest pain. Blood pressure was closely monitored. Blood pressure stabilized as pain resolved. Pulse oximetry was stable on room air. Patient was able to tolerate diet. Patient clinically stabilized and was ready for discharge FINAL DIAGNOSES: Epigastric pain Gastritis GERD Hypertension Hiatal hernia Paget's disease of the left femur Osteoarthritis of the spine Intestinal migraine Hypertension DISCHARGE MEDICATIONS: See Medication Reconciliation list. DISCHARGE INSTRUCTIONS: Patient was discharged home. Follow up with primary care provider in one week. I have been assigned to dictate discharge summary for this account. I was not involved in the patient's management. Sanjuana Ferreira NP Mar 10, 2019 12:04
== END 2019-03-09 16:36 | disposition home or self-care (01) | DRG 392 ==
LOC: EMR 12:03 → EDBEDREQSVC 16:09 → EDBEDREQ 16:09 → 2E 16:17 → EDBEDREQ 17:41
DX: K29.70 Gastritis, unspecified, without bleeding (principal); Q39.8 Other congenital malformations of esophagus; K21.9 Gastro-esophageal reflux disease without esophagitis; K52.9 Noninfective gastroenteritis and colitis, unspecified; I10 Essential (primary) hypertension; K44.9 Diaphragmatic hernia without obstruction or gangrene; M88.852 Osteitis deformans of left thigh; M47.9 Spondylosis, unspecified; Z88.6 Allergy status to analgesic agent; I25.10 Atherosclerotic heart disease of native coronary artery without angina pectoris; K22.2 Esophageal obstruction; K31.7 Polyp of stomach and duodenum
CPT/HCPCS: 36415; 74018; 76700; 80048; 80053; 81003; 82150; 83690; 85025; 85610; 85730; 86850; 86900; 86901; 93005; 93970; 96365; 96375; 99285; J2405

== ENCOUNTER 2019-03-29 11:43 | Emergency (ER) | payer MEDICARE, MEDICAID ==
[~2019-03-29] VITALS: Ht 157.5 cm; Wt 73.9 kg
[~2019-03-29 11:43] MED LIST changes: +AMITRIPTYLINE H10 MG ORAL; +AMITRIPTYLINE25 MG ORAL; +DICYCLOMINE HCL10 MG ORAL; +MIRALAX119 GM ORAL
[2019-03-29 11:50] VITALS: BP 122/87
[2019-03-29] MEDS ORDERED: Morphine Sulfate 2mg/ml Inj(IV/IM USE ONLY) IVP ONE (12:30)
--- NOTE | 2019-03-29 12:41 | NUR ---
Patient refused EKG stating "I'm just here for my pain shot, I just had an EKG done. why haven't they started my IV?" ERMD notified.
--- NOTE | 2019-03-29 13:55 | NUR ---
ED Nurse Note: lab called spoke with Kathleen, coming for labdraw.
[2019-03-29 14:04] LABS: BASOPHILS % (AUTO) 1.1 % (0.0-2.0); EOSINOPHILS % (AUTO) 3.5 % (0.0-3.0); HEMATOCRIT 29.7 % (37.0-47.0); HEMOGLOBIN 9.4 G/DL (12.0-16.0); MEAN CORPUSCULAR VOLUME 76 FL (80-99); MONOCYTES % (AUTO) 9.3 % (1.0-10.0); PLATELET COUNT 265 K/UL (150-450); RED BLOOD COUNT 3.92 M/UL (4.20-5.40); RED CELL DISTRIBUTION WIDTH 14.5 % (11.6-14.8); WHITE BLOOD COUNT 6.9 K/UL (4.8-10.8)
[2019-03-29 14:06] LABS: APPEARANCE,URINE CLEAR; BILIRUBIN, URINE NEGATIVE (NEGATIVE); COLOR,URINE PALE YELLOW; GLUCOSE, URINE (UA) NEGATIVE (NEGATIVE); KETONES,URINE NEGATIVE (NEGATIVE); LEUKOCYTE ESTERASE ,URINE 2+ (NEGATIVE); NITRITE,URINE NEGATIVE (NEGATIVE); PH,URINE 5 (4.5-8.0); PROTEIN,URINE NEGATIVE (NEGATIVE); UROBILINOGEN,URINE 1 MG/DL (0.0-1.0)
[2019-03-29 14:17] LABS: ANION GAP 10 mmol/L (5-15); BLOOD UREA NITROGEN 11 mg/dL (7-18); CALCIUM 8.9 MG/DL (8.5-10.1); CARBON DIOXIDE 25 MMOL/L (21-32); CHLORIDE 105 MMOL/L (98-107); CREATININE 0.6 MG/DL (0.55-1.30); POTASSIUM 5.1 MMOL/L (3.5-5.1); SODIUM 140 MMOL/L (136-145)
[2019-03-29 14:21] LABS: ALANINE AMINOTRANSFERASE 28 U/L (12-78); ALBUMIN 3.3 G/DL (3.4-5.0); ALBUMIN/GLOBULIN RATIO 0.8 (1.0-2.7); ALKALINE PHOSPHATASE 118 U/L (46-116); ASPARTATE AMINO TRANSFERASE 45 U/L (15-37); BILIRUBIN,TOTAL 0.7 MG/DL (0.2-1.0)
--- NOTE | 2019-03-29 14:48 | Diagnostic Imaging Report ---
Indication: Abdominal pain Comparison: 03/07/2019 Single view of the abdomen obtained Findings: Distended bowel demonstrated in the mid abdomen. Part of this is the sigmoid colon. Mild small bowel dilatation is also noted. Findings appear unchanged. The left proximal femur is abnormal with cortical expansion and increased trabecular markings. IMPRESSION: Mild small bowel dilatation. Enteritis/ileus is a consideration. No change
--- NOTE | 2019-03-29 15:01 | Diagnostic Imaging Report ---
Indication: Dyspnea Comparison: 01/31/2019 A single view chest radiograph was obtained. Findings: No definite infiltrate or pulmonary vascular congestion identified. The heart is enlarged. The aorta is mildly enlarged consistent with atherosclerotic vascular disease. The bones are osteopenic. Impression: No acute disease
--- NOTE | 2019-03-29 15:06 | Emergency Room Report ---
History of Present Illness General Chief Complaint: Abdominal Pain Source: Patient Present Illness HPI Patient presents with uncontrolled epigastric pain. She says she has gastritis. Her doctor sent her to the emergency department to get a shot of morphine. The pain is rated 12/10. Is epigastric, burning and pressure without radiation to her back. She is moving her bowels without difficulty. She denies dysuria. She feels nauseated but denies vomiting. The patient states that she has had an CT in the past but this feels different. She denies chest pain or shortness of breath. No fevers, chills, sore throat, chest pain, palpitations, joint pain, rashes, depression, anxiety, visual changes, dizziness, headache. Patient admitted in January 2019 with these discharge diagnoses: Atypical chest pain , likely GI related GERD Peptic ulcer disease Hiatal hernia Coronary artery disease/by CT coronary angiogram in March 2018 at [facility] Hyperlipidemia Allergies: Coded Allergies: Broccoli (Verified Allergy, Unknown, 08/10/18) IBUPROFEN (Verified Allergy, Unknown, 08/10/18) LACTOSE (Verified Allergy, Unknown, 08/10/18) Lactose intolerant MILK (Verified Allergy, Unknown, 08/10/18) ONION (Verified Allergy, Unknown, 08/10/18) ORANGE JUICE (Verified Allergy, Unknown, 08/10/18) TOMATO (Verified Allergy, Unknown, 08/10/18) Patient History Past Medical History: see triage record, old chart reviewed Social History: Denies: smoking Social History Narrative From home Now: No Reviewed Nursing Documentation: PMH: Agreed; PSxH: Agreed Nursing Documentation-PMH Hx Cardiac Problems: Yes - tachycardia Hx Hypertension: No Hx Pacemaker: No Hx Asthma: No Hx COPD: No Hx Diabetes: No Hx Cancer: No Hx Gastrointestinal Problems: Yes Hx Dialysis: No Hx Neurological Problems: No Hx Cerebrovascular Accident: No Hx Seizures: No Review of Systems All Other Systems: negative except mentioned in HPI Physical Exam Vital Signs Date Time Temp Pulse Resp B/P (MAP) Pulse Ox O2 Delivery O2 Flow Rate FiO2 03/29/19 11:51 98.4 80 19 119/71 (87) 95 Room Air Sp02 EP Interpretation: reviewed, normal General Appearance: well appearing, no apparent distress, GCS 15 Head: normocephalic, atraumatic Eyes: bilateral eye normal inspection, bilateral eye PERRL, bilateral eye EOMI ENT: moist mucus membranes Neck: supple Respiratory: lungs clear, normal breath sounds Cardiovascular #1: regular rate, rhythm Cardiovascular #2: 2+ radial (R) Gastrointestinal: normal inspection, normal bowel sounds, no mass, non- distended, no guarding, no rebound, tenderness - Epigastric Genitourinary: no CVA tenderness Musculoskeletal: back normal, gait/station normal, normal range of motion Neurologic: alert, oriented x3, grossly normal Psychiatric: anxious - Pressuring to get pain medicine Skin: no rash, warm/dry Medical Decision Making Diagnostic Impression: Primary Impression: Epigastric pain Additional Impression: Anemia Qualified Codes: D64.9 - Anemia, unspecified ER Course Patient sent by her private physician for a morphine shot for abdominal pain. Differential includes acute myocardial infarction, gastritis, pancreatitis, GERD , peptic ulcer disease, disease, diverticulitis amongst others. Evaluation with EKG, chest x-ray, abdominal film and labs. Patient treated with IV hydration, Pepcid, Zofran and morphine. Patient is placed on a night monitor.. Patient refuses EKG. Labs unremarkable except for anemia which is been stable for some time. Chest x -ray normal. Abdomen film with some small bowel dilatation but no evidence of small bowel obstruction. With normal white count and improvement CT of the abdomen and pelvis not indicated at this time. Patient pain-free and wants to go home. Discussed treatment plan with patient. No medical emergency at this time. Patient stable for outpatient observation and treatment. Laboratory Tests Test 03/29/19 12:30 03/29/19 14:20 White Blood Count 6.9 K/UL (4.8-10.8) Red Blood Count 3.92 M/UL (4.20-5.40) L Hemoglobin 9.4 G/DL (12.0-16.0) L Hematocrit 29.7 % (37.0-47.0) L Mean Corpuscular Volume 76 FL (80-99) L Mean Corpuscular Hemoglobin 24.1 PG (27.0-31.0) L Mean Corpuscular Hemoglobin Concent 31.8 G/DL (32.0-36.0) L Red Cell Distribution Width 14.5 % (11.6-14.8) Platelet Count 265 K/UL (150-450) Mean Platelet Volume 8.8 FL (6.5-10.1) Neutrophils (%) (Auto) 69.0 % (45.0-75.0) Lymphocytes (%) (Auto) 17.0 % (20.0-45.0) L Monocytes (%) (Auto) 9.3 % (1.0-10.0) Eosinophils (%) (Auto) 3.5 % (0.0-3.0) H Basophils (%) (Auto) 1.1 % (0.0-2.0) Urine Color Pale yellow Urine Appearance Clear Urine pH 5 (4.5-8.0) Urine Specific [place] 1.020 (1.005-1.035) Urine Protein Negative (NEGATIVE) Urine Glucose (UA) Negative (NEGATIVE) Urine Ketones Negative (NEGATIVE) Urine Blood Negative (NEGATIVE) Urine Nitrite Negative (NEGATIVE) Urine Bilirubin Negative (NEGATIVE) Urine Urobilinogen 1 MG/DL (0.0-1.0) H Urine Leukocyte Esterase 2+ (NEGATIVE) H Urine RBC 0 /HPF (0 - 2) Urine WBC 5-10 /HPF (0 - 2) H Urine Squamous Epithelial Cells Few /LPF (NONE/OCC) Urine Bacteria Few /HPF (NONE) Sodium Level 140 MMOL/L (136-145) Potassium Level 5.1 MMOL/L (3.5-5.1) Chloride Level 105 MMOL/L (98-107) Carbon Dioxide Level 25 MMOL/L (21-32) Anion Gap 10 mmol/L (5-15) Blood Urea Nitrogen 11 mg/dL (7-18) Creatinine 0.6 MG/DL (0.55-1.30) Estimate Glomerular Filtration Rate mL/min (>60) Glucose Level 87 MG/DL (74-106) Calcium Level 8.9 MG/DL (8.5-10.1) Total Bilirubin 0.7 MG/DL (0.2-1.0) Aspartate Amino Transferase (AST) 45 U/L (15-37) H Alanine Aminotransferase (ALT) 28 U/L (12-78) Alkaline Phosphatase 118 U/L (46-116) H Troponin I 0.010 ng/mL (0.000-0.056) Total Protein 7.4 G/DL (6.4-8.2) Albumin 3.3 G/DL (3.4-5.0) L Globulin 4.1 g/dL Albumin/Globulin Ratio 0.8 (1.0-2.7) L Lipase 263 U/L (73-393) Prothrombin Time 11.1 SEC (9.30-11.50) Prothrombin Time INR 1.0 (0.9-1.1) PTT 26 SEC (23-33) EKG Diagnostic Results EP Interpretation: Patient refused EKG Rhythm Strip Diag. Results EP Interpretation: yes Rhythm: NSR, no PVC's, no ectopy Chest X-Ray Diagnostic Results Chest X-Ray Diagnostic Results : Chest X-Ray Ordered: Yes # of Views/Limited/Complete: 1 View Indication: Other EP Interpretation: Yes Interpretation: no consolidation, no effusion, no pneumothorax Impression: No acute disease Electronically Signed by: Electronically signed by Tip Beth MD Other X-Ray Diagnostic Results Other X-Ray Diagnostic Results : X-Ray ordered: Abdomen # of Views/Limited Vs Complete: 1 View Indication: Pain Interpretation: nonspecific bowel gas, no sbo, other - No masses Impression: No acute disease Electronically Signed by: Electronically signed by Tip Beth MD Last Vital Signs Date Time Temp Pulse Resp B/P (MAP) Pulse Ox O2 Delivery O2 Flow Rate FiO2 03/29/19 16:29 98.7 67 16 124/76 98 Room Air 03/29/19 11:50 98 Status: improved Disposition: HOME, SELF-CARE Condition: Improved Referrals: Silvino Calvillo MD (PCP) Tip Beth MD Mar 29, 2019 15:06
--- NOTE | 2019-03-29 15:28 | NUR ---
Lab called at 1245 for lab draw and again at 1310. dental laboratory technician apprentice said they are coming.
[2019-03-29 16:29] VITALS: BP 124/76
--- NOTE | 2019-03-29 16:31 | NUR ---
ER DISCHARGE NOTE: Patient is cleared to be discharged per ERMD, pt is aox4, on room air, with stable vital signs. pt was given dc and prescription instructions, pt was able to verbalize understanding, pt id band and iv site removed without complications. pt is able to ambulate with steady gait. pt took all belongings. Addendum: 03/29/19 at 1632 by RONALDO Pt given taxi voucher and taxi called. Pt verbalized understanding.
== END 2019-03-29 16:10 | disposition home or self-care (01) ==
LOC: EMR 12:42
DX: R10.13 Epigastric pain (principal); D64.9 Anemia, unspecified; E78.5 Hyperlipidemia, unspecified; K21.9 Gastro-esophageal reflux disease without esophagitis; I25.10 Atherosclerotic heart disease of native coronary artery without angina pectoris; Z87.11 Personal history of peptic ulcer disease; I25.2 Old myocardial infarction; Z88.6 Allergy status to analgesic agent; Z91.018 Allergy to other foods
CPT/HCPCS: 36415; 71045; 74018; 80053; 81003; 83690; 84484; 85025; 85610; 85730; 96361; 96374; 96375; 99284; J2270; J2405; S0028; J7030

== ENCOUNTER 2019-04-18 17:55 | Observation (INO) | payer MEDICARE, MEDICAID ==
[~2019-04-18] VITALS: Ht 157.5 cm; Wt 73.5 kg
--- NOTE | 2019-04-18 18:10 | NUR ---
ED Nurse Note: Patient ambulated into ER from home with complaint of epigastric pain x today. Patient aaox4, on room air, vital signs stable. Pt states she had a stent replacement 3 weeks ago for s/p MO. Placed patient on cardiac monitors. no s/s of respiratory distress or cardiac distress noted.
[2019-04-18] MEDS ORDERED: Morphine Sulfate 2mg/ml Inj(IV/IM USE ONLY) IVP ONE (18:30)
--- NOTE | 2019-04-18 18:50 | NUR ---
ED Nurse Note: RN attempted to insert IV to left AC x 1, but unsuccesful at this time. RN inserted IV to left hand 22g on the 1st atttempt. Patient tolerated the procedure with minimal discomfort.
--- NOTE | 2019-04-18 19:10 | NUR ---
HAND-OFF: Report given to Karlos GEORGE. endorsed all plan of care to Karlos GEORGE.
[2019-04-18 19:11] VITALS: BP 104/67
[2019-04-18 19:11] LABS: BASOPHILS % (AUTO) 0.8 % (0.0-2.0); EOSINOPHILS % (AUTO) 1.5 % (0.0-3.0); HEMATOCRIT 34.4 % (37.0-47.0); HEMOGLOBIN 10.7 G/DL (12.0-16.0); LYMPHOCYTES % (AUTO) 12.4 % (20.0-45.0); MEAN CORPUSCULAR VOLUME 73 FL (80-99); MONOCYTES % (AUTO) 7.2 % (1.0-10.0); NEUTROPHILS % (AUTO) 78.2 % (45.0-75.0); PLATELET COUNT 292 K/UL (150-450); RED BLOOD COUNT 4.69 M/UL (4.20-5.40); RED CELL DISTRIBUTION WIDTH 14.7 % (11.6-14.8); WHITE BLOOD COUNT 7.1 K/UL (4.8-10.8)
--- NOTE | 2019-04-18 19:11 | NUR ---
ED Nurse Note: Received report from Mercedes GEORGE.
[2019-04-18 19:19] LABS: ANION GAP 13 mmol/L (5-15); BLOOD UREA NITROGEN 19 mg/dL (7-18); CALCIUM 9.6 MG/DL (8.5-10.1); CARBON DIOXIDE 23 MMOL/L (21-32); CHLORIDE 102 MMOL/L (98-107); CREATININE 1.3 MG/DL (0.55-1.30); POTASSIUM 4.4 MMOL/L (3.5-5.1); SODIUM 138 MMOL/L (136-145)
[2019-04-18 19:36] LABS: ALANINE AMINOTRANSFERASE 60 U/L (12-78); ALBUMIN 3.7 G/DL (3.4-5.0); ALBUMIN/GLOBULIN RATIO 0.9 (1.0-2.7); ALKALINE PHOSPHATASE 174 U/L (46-116); ASPARTATE AMINO TRANSFERASE 50 U/L (15-37); BILIRUBIN,TOTAL 1.1 MG/DL (0.2-1.0)
[2019-04-18 19:45] LABS: BILIRUBIN,DIRECT 0.2 MG/DL (0.0-0.3)
--- NOTE | 2019-04-18 20:17 | Emergency Room Report ---
History of Present Illness General Chief Complaint: Abdominal Pain Source: Patient Present Illness HPI 74-year-old female presents ED for evaluation. Complaining of epigastric pain for the last 6 hours. Sharp, 8/10 radiating to chest. denies shortness of breath. History of GERD. States it often presents with similar pain. States that 3 weeks ago she was at [facility] for chest pain and had stents placed. Denies alcohol or drug use. No other aggravating relieving factors. Denies any other associated symptoms Allergies: Coded Allergies: Broccoli (Verified Allergy, Unknown, 08/10/18) IBUPROFEN (Verified Allergy, Unknown, 08/10/18) LACTOSE (Verified Allergy, Unknown, 08/10/18) Lactose intolerant MILK (Verified Allergy, Unknown, 08/10/18) ONION (Verified Allergy, Unknown, 08/10/18) ORANGE JUICE (Verified Allergy, Unknown, 08/10/18) TOMATO (Verified Allergy, Unknown, 08/10/18) Patient History Past Medical History: HTN, CAD, GERD Past Surgical History: none Pertinent Family History: none Social History: Denies: smoking, alcohol use, drug use Now: No Immunizations: UTD Reviewed Nursing Documentation: PMH: Agreed; PSxH: Agreed Nursing Documentation-PMH Past Medical History: No History, Except For Hx Cardiac Problems: Yes - tachycardia Hx Hypertension: No Hx Pacemaker: No Hx Asthma: No Hx COPD: No Hx Diabetes: No Hx Cancer: No Hx Gastrointestinal Problems: Yes Hx Dialysis: No Hx Neurological Problems: No Hx Cerebrovascular Accident: No Hx Seizures: No Review of Systems All Other Systems: negative except mentioned in HPI Physical Exam Vital Signs Date Time Temp Pulse Resp B/P (MAP) Pulse Ox O2 Delivery O2 Flow Rate FiO2 04/18/19 18:05 97.9 96 20 101/69 (80) 97 Room Air Sp02 EP Interpretation: reviewed, normal General Appearance: no apparent distress, alert, GCS 15, non-toxic Head: normocephalic, atraumatic Eyes: bilateral eye normal inspection, bilateral eye PERRL ENT: hearing grossly normal, normal pharynx, no angioedema, normal voice Neck: full range of motion, supple/symm/no masses Respiratory: chest non-tender, lungs clear, normal breath sounds, speaking full sentences Cardiovascular #1: regular rate, rhythm, no edema Cardiovascular #2: 2+ carotid (R), 2+ carotid (L), 2+ radial (R), 2+ radial (L) , 2+ dorsalis pedis (R), 2+ dorsalis pedis (L) Gastrointestinal: normal bowel sounds, soft, non-distended, no guarding, no rebound, tenderness - epigastric Rectal: deferred Genitourinary: normal inspection, no CVA tenderness Musculoskeletal: back normal, normal range of motion, gait/station normal, non- tender Neurologic: alert, motor strength/tone normal, oriented x3, sensory intact, responsive, speech normal Psychiatric: judgement/insight normal, memory normal, mood/affect normal, no suicidal/homicidal ideation Reflexes: 3+ bicep (R), 3+ bicep (L), 3+ tricep (R), 3+ tricep (L), 3+ knee (R) , 3+ knee (L) Skin: other - see nursing skin notes Lymphatic: no adenopathy Medical Decision Making Diagnostic Impression: Primary Impression: GERD (gastroesophageal reflux disease) Qualified Codes: K21.9 - Gastro-esophageal reflux disease without esophagitis Additional Impression: Chest pain Qualified Codes: R07.9 - Chest pain, unspecified ER Course Hospital Course 74 yo F presents with epigastric pain + CP Differential diagnoses include: [place]/unstable angina, contusion, muscle strain, PTX, rib fracture Clinical course Patient placed on stretcher. 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 After initial history and physical I ordered labs, EKG, chest x-ray, pepcid, morphine labs reviewed- no leukocytosis, hb/hct stable, electrolytes ok, trop negative, x 1 EKG - NSR no acute ischemic changes interpreted by me Chest x-ray- no acute process I discussed findings with patient. While previous cardiac work-ups have presented with atypical chest pain, given age and risk factors along with recent cardiac hospitalization I believe patient would benefit from observation. Case discussed with Dr. Calvillo and he agreed to accept the patient to his service for further care and support I. I feel this is a highly complex case requiring extensive working including EKG/Rhythm strip, Xray/CT/US, Blood/urine lab work, repeat exams while in ED, and administration of strong opiates/narcotics for pain control, admission to hospital or close patient follow up. Diagnosis - GERD, chest pain admitted to telemetry obs in serious condition Labs Test 04/18/19 18:43 White Blood Count 7.1 K/UL (4.8-10.8) Red Blood Count 4.69 M/UL (4.20-5.40) Hemoglobin 10.7 G/DL (12.0-16.0) Hematocrit 34.4 % (37.0-47.0) Mean Corpuscular Volume 73 FL (80-99) Mean Corpuscular Hemoglobin 22.8 PG (27.0-31.0) Mean Corpuscular Hemoglobin Concent 31.1 G/DL (32.0-36.0) Red Cell Distribution Width 14.7 % (11.6-14.8) Platelet Count 292 K/UL (150-450) Mean Platelet Volume 8.2 FL (6.5-10.1) Neutrophils (%) (Auto) 78.2 % (45.0-75.0) Lymphocytes (%) (Auto) 12.4 % (20.0-45.0) Monocytes (%) (Auto) 7.2 % (1.0-10.0) Eosinophils (%) (Auto) 1.5 % (0.0-3.0) Basophils (%) (Auto) 0.8 % (0.0-2.0) Sodium Level 138 MMOL/L (136-145) Potassium Level 4.4 MMOL/L (3.5-5.1) Chloride Level 102 MMOL/L (98-107) Carbon Dioxide Level 23 MMOL/L (21-32) Anion Gap 13 mmol/L (5-15) Blood Urea Nitrogen 19 mg/dL (7-18) Creatinine 1.3 MG/DL (0.55-1.30) Estimat Glomerular Filtration Rate mL/min (>60) Glucose Level 108 MG/DL (74-106) Calcium Level 9.6 MG/DL (8.5-10.1) Total Bilirubin 1.1 MG/DL (0.2-1.0) Direct Bilirubin 0.2 MG/DL (0.0-0.3) Aspartate Amino Transf (AST/SGOT) 50 U/L (15-37) Alanine Aminotransferase (ALT/SGPT) 60 U/L (12-78) Alkaline Phosphatase 174 U/L (46-116) Troponin I 0.000 ng/mL (0.000-0.056) Total Protein 8.0 G/DL (6.4-8.2) Albumin 3.7 G/DL (3.4-5.0) Globulin 4.3 g/dL Albumin/Globulin Ratio 0.9 (1.0-2.7) Lipase 138 U/L (73-393) EKG Diagnostic Results Rate: normal Rhythm: NSR ST Segments: no acute changes ASA given to the pt in ED: No Rhythm Strip Diag. Results EP Interpretation: yes Rhythm: NSR, no PVC's, no ectopy Chest X-Ray Diagnostic Results Chest X-Ray Diagnostic Results : Chest X-Ray Ordered: Yes # of Views/Limited/Complete: 1 View Indication: Chest Pain EP Interpretation: Yes Interpretation: no consolidation, no effusion, no pneumothorax, no acute cardiopulmonary disease Impression: No acute disease Electronically Signed by: Electronically signed by Cesar Elkins MD Last Vital Signs Date Time Temp Pulse Resp B/P (MAP) Pulse Ox O2 Delivery O2 Flow Rate FiO2 04/18/19 19:28 98.2 04/18/19 19:11 77 19 104/67 97 Room Air Status: improved Disposition: ADMITTED INPATIENT Condition: Serious Referrals: Silvino Calvillo MD (PCP) Cesar Elkins MD Apr 18, 2019 20:17
[2019-04-18 21:44] VITALS: BP 101/58
[2019-04-18] MEDS ORDERED: LORazepam Inj 2mg/ml 1ml IV PRN (21:45)
[2019-04-18] MEDS ORDERED: Miralax 17gm pkt ORAL PRN (21:45)
[2019-04-18] MEDS ORDERED: Nitroglycerin Subl 0.4mg tab SL PRN (21:45)
[2019-04-18] MEDS ORDERED: Metoclopramide 10mg/2ml Inj IVP PRN (21:45)
[2019-04-18] MEDS ORDERED: Morphine Sulfate 2mg/ml Inj(IV/IM USE ONLY) IVP PRN (21:45)
--- NOTE | 2019-04-18 21:45 | NUR ---
ED Nurse Note: Pt seen sleeping in bed. No SOB. Breathing even and unlabored. Will cont to monitor.
[2019-04-18 23:49] VITALS: BP 99/51
[2019-04-19] VITALS (7 sets, daily range): BP systolic 100–155; BP diastolic 51–79
[2019-04-19] MEDS: D5 1/2NS 1,000 ML IV SCH ×2 (01:31→15:01)
--- NOTE | 2019-04-19 02:52 | NUR ---
ED Nurse Note: Pt able to walk to the restroom with steady gait. Not in any distress.
--- NOTE | 2019-04-19 05:14 | NUR ---
ED Nurse Note: Pt noted with dry cough. RT at bedside for breathing tx.
[2019-04-19] MEDS ORDERED: Albuterol ud Inhalation HHN ONE (05:15)
[2019-04-19 05:18] LABS: BASOPHILS % (AUTO) 0.9 % (0.0-2.0); EOSINOPHILS % (AUTO) 3.3 % (0.0-3.0); HEMATOCRIT 29.2 % (37.0-47.0); HEMOGLOBIN 9.1 G/DL (12.0-16.0); LYMPHOCYTES % (AUTO) 21.2 % (20.0-45.0); MEAN CORPUSCULAR VOLUME 74 FL (80-99); MONOCYTES % (AUTO) 13.6 % (1.0-10.0); PLATELET COUNT 220 K/UL (150-450); RED BLOOD COUNT 3.96 M/UL (4.20-5.40)
[2019-04-19 05:56] LABS: ALANINE AMINOTRANSFERASE 48 U/L (12-78); ALBUMIN/GLOBULIN RATIO 0.8 (1.0-2.7); ALKALINE PHOSPHATASE 135 U/L (46-116); AMYLASE 77 U/L (25-115); ANION GAP 4 mmol/L (5-15); ASPARTATE AMINO TRANSFERASE 43 U/L (15-37); BILIRUBIN,TOTAL 0.9 MG/DL (0.2-1.0); BLOOD UREA NITROGEN 16 mg/dL (7-18); CARBON DIOXIDE 28 MMOL/L (21-32); CHLORIDE 102 MMOL/L (98-107); POTASSIUM 3.9 MMOL/L (3.5-5.1); SODIUM 134 MMOL/L (136-145)
--- NOTE | 2019-04-19 07:30 | NUR ---
ED Nurse Note: patient endorsed to Aranza RN, endorsed all plan of care to Aranza RN. patient transferred to 2W on ACLS protocol, with all of her belongings.
--- NOTE | 2019-04-19 07:40 | NUR ---
NURSE NOTES: Admitted patient from ED. Placed on wet inspector optical glass. Appears comfortably in bed. Denies chest pain. No skin issues.
[2019-04-19] MEDS: Sucralfate 1gm tab ORAL SCH ×3 (09:12→17:57)
[2019-04-19] MEDS: Pantoprazole Inj IV SCH (09:12)
[2019-04-19] MEDS: Heparin 5000 units/ml inj SUBQ SCH ×3 (09:15→21:42)
--- NOTE | 2019-04-19 10:25 | NUR ---
*-* NO INSURANCE INFORMATION IN THE BAR UNABLE TO SEND CLINICALS OR REVIEWS *-*
[2019-04-19] MEDS ORDERED: ASPIR 8181 MG ORAL (10:54)
[2019-04-19] MEDS ORDERED: LISINOPRIL5 MG ORAL (11:05)
[2019-04-19] MEDS ORDERED: TESSALON PERLE100 M2 ORAL (11:05)
[2019-04-19] MEDS ORDERED: ZYRTEC10 M3 ORAL (11:05)
[2019-04-19] MEDS ORDERED: LIPITOR80 MG ORAL (11:05)
[2019-04-19] MEDS ORDERED: GUAIFENESIN200 MG ORAL (11:05)
[2019-04-19] MEDS ORDERED: AUGMENTIN 500-1 EACH ORAL (11:05)
[2019-04-19] MEDS ORDERED: BRILINTA60 MG PO (11:05)
[2019-04-19] MEDS ORDERED: METOPROLOL SUCC25 MG ORAL (11:05)
[2019-04-19] MEDS ORDERED: SIMETHICON40 MG/0.2 PO (11:08)
--- NOTE | 2019-04-19 11:40 | NUR ---
NURSE NOTES: Dr. Ling at bedside.
--- NOTE | 2019-04-19 11:56 | Consultation ---
History of Present Illness General Date patient seen: Apr 19, 2019 Chief Complaint: Abdominal Pain Present Illness HPI 73 year old female with hx of recent PA at [facility] and three stents, SBO, CAD, HTN, gastritis, hiatal hernia, pancreatitis, chronic constipation, , presented to ER with CC of abdominal pain. She age some red meat and afterwards her cramping started. she is also complaining of persistent cough for which she has taken Augmentin for the last few days. She is admitted for observation to telemetry for further evaluation. Allergies: Coded Allergies: Broccoli (Verified Allergy, Unknown, 08/10/18) IBUPROFEN (Verified Allergy, Unknown, 08/10/18) LACTOSE (Verified Allergy, Unknown, 08/10/18) Lactose intolerant MILK (Verified Allergy, Unknown, 08/10/18) ONION (Verified Allergy, Unknown, 08/10/18) ORANGE JUICE (Verified Allergy, Unknown, 08/10/18) TOMATO (Verified Allergy, Unknown, 08/10/18) Medication History Scheduled Amitriptyline Hcl* (Amitriptyline Hcl*), 20 MG ORAL BEDTIME, (Reported) Amoxicillin/Potassium Clav 500-125 Tablet* (Augmentin 500-125 Tablet*), 1 TAB ORAL DAILY, (Reported) Aspirin* (Aspir 81*), 81 MG ORAL DAILY, (Reported) Atorvastatin (Lipitor), 80 MG ORAL BEDTIME, (Reported) Benzonatate (Tessalon Perle), 100 MG ORAL THREE TIMES A DAY, (Reported) Cetirizine Hcl (Zyrtec), 10 MG ORAL BEDTIME, (Reported) Dicyclomine Hcl* (Dicyclomine Hcl*), 10 MG ORAL QID Docusate Sodium* (Colace*), 100 MG ORAL THREE TIMES A DAY Guaifenesin (Guaifenesin), 600 MG ORAL Q12HR, (Reported) Lisinopril (Lisinopril*), 5 MG ORAL DAILY, (Reported) Metoprolol Succinate* (Metoprolol Succinate*), 25 MG ORAL BID, (Reported) Ondansetron Odt* (Zofran Odt*), 4 MG BC EVERY 8 HOURS Pantoprazole* (Pantoprazole*), 40 MG ORAL DAILY Polyethylene Glycol 3350 (Miralax), 17 GM ORAL BEDTIME Sucralfate* (Carafate*), 1 GM ORAL TID, (Reported) Ticagrelor (Brilinta), 90 MG PO BID, (Reported) Scheduled PRN Simethicone (Simethicone), 80 MG PO EVERY 6 HOURS PRN for To Patient Comfort, ( Reported) Patient History Healthcare decision maker Resuscitation status Advanced Directive on File Past Medical/Surgical History Past Medical/Surgical History: (1) Stented coronary artery (2) GERD (gastroesophageal reflux disease) (3) HTN (hypertension) (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 (5) SBO (small bowel obstruction) Review of Systems All Other Systems: negative except mentioned in HPI Physical Exam General Appearance: WD/WN Lines, tubes and drains: peripheral, central line HEENT: normocephalic, atraumatic Neck: normal alignment, supple Respiratory/Chest: chest wall non-tender, lungs clear Breasts: no masses Cardiovascular/Chest: normal rate Abdomen: normal bowel sounds Genitourinary/Rectal: normal genital exam Extremities: normal range of motion Last 24 Hour Vital Signs Date Time Temp Pulse Resp B/P (MAP) Pulse Ox O2 Delivery O2 Flow Rate FiO2 04/19/19 08:00 98.2 86 23 155/79 (104) 96 04/19/19 07:59 73 04/19/19 07:35 98.7 60 15 123/87 98 Room Air 04/19/19 05:20 78 15 100 Room Air 21 71 18 98 04/19/19 05:19 71 18 99 Room Air 21 04/19/19 05:16 98.7 74 20 108/64 100 Room Air 04/19/19 03:33 98.3 77 19 100/59 99 Room Air 04/19/19 01:14 97.9 71 16 107/57 96 Room Air 04/18/19 23:49 98.5 69 13 99/51 96 Room Air 04/18/19 21:44 98.9 76 17 101/58 98 Room Air 04/18/19 19:28 98.2 04/18/19 19:11 98.2 77 19 104/67 97 Room Air 04/18/19 18:10 81 13 Room Air 04/18/19 18:05 97.9 96 20 101/69 (80) 97 Room Air Intake and Output 04/18/19 04/19/19 18:59 06:59 Intake Total 1075 ml Balance 1075 ml Intake IV Total 1075 ml # Voids 1 Laboratory Tests Test 04/18/19 18:43 04/19/19 05:00 White Blood Count 7.1 K/UL (4.8-10.8) 5.0 K/UL (4.8-10.8) Red Blood Count 4.69 M/UL (4.20-5.40) 3.96 M/UL (4.20-5.40) L Hemoglobin 10.7 G/DL (12.0-16.0) L 9.1 G/DL (12.0-16.0) L Hematocrit 34.4 % (37.0-47.0) L 29.2 % (37.0-47.0) L Mean Corpuscular Volume 73 FL (80-99) L 74 FL (80-99) L Mean Corpuscular Hemoglobin 22.8 PG (27.0-31.0) L 23.0 PG (27.0-31.0) L Mean Corpuscular Hemoglobin Concent 31.1 G/DL (32.0-36.0) L 31.1 G/DL (32.0-36.0) L Red Cell Distribution Width 14.7 % (11.6-14.8) 15.0 % (11.6-14.8) H Platelet Count 292 K/UL (150-450) 220 K/UL (150-450) Mean Platelet Volume 8.2 FL (6.5-10.1) 7.9 FL (6.5-10.1) Neutrophils (%) (Auto) 78.2 % (45.0-75.0) H 61.0 % (45.0-75.0) Lymphocytes (%) (Auto) 12.4 % (20.0-45.0) L 21.2 % (20.0-45.0) Monocytes (%) (Auto) 7.2 % (1.0-10.0) 13.6 % (1.0-10.0) H Eosinophils (%) (Auto) 1.5 % (0.0-3.0) 3.3 % (0.0-3.0) H Basophils (%) (Auto) 0.8 % (0.0-2.0) 0.9 % (0.0-2.0) Sodium Level 138 MMOL/L (136-145) 134 MMOL/L (136-145) L Potassium Level 4.4 MMOL/L (3.5-5.1) 3.9 MMOL/L (3.5-5.1) Chloride Level 102 MMOL/L (98-107) 102 MMOL/L (98-107) Carbon Dioxide Level 23 MMOL/L (21-32) 28 MMOL/L (21-32) Anion Gap 13 mmol/L (5-15) 4 mmol/L (5-15) L Blood Urea Nitrogen 19 mg/dL (7-18) H 16 mg/dL (7-18) Creatinine 1.3 MG/DL (0.55-1.30) 1.0 MG/DL (0.55-1.30) Estimat Glomerular Filtration Rate mL/min (>60) mL/min (>60) Glucose Level 108 MG/DL (74-106) H 177 MG/DL (74-106) H Calcium Level 9.6 MG/DL (8.5-10.1) 8.0 MG/DL (8.5-10.1) L Total Bilirubin 1.1 MG/DL (0.2-1.0) H 0.9 MG/DL (0.2-1.0) Direct Bilirubin 0.2 MG/DL (0.0-0.3) Aspartate Amino Transf (AST/SGOT) 50 U/L (15-37) H 43 U/L (15-37) H Alanine Aminotransferase (ALT/SGPT) 60 U/L (12-78) 48 U/L (12-78) Alkaline Phosphatase 174 U/L (46-116) H 135 U/L (46-116) H Troponin I 0.000 ng/mL (0.000-0.056) Total Protein 8.0 G/DL (6.4-8.2) 6.6 G/DL (6.4-8.2) Albumin 3.7 G/DL (3.4-5.0) 3.0 G/DL (3.4-5.0) L Globulin 4.3 g/dL 3.6 g/dL Albumin/Globulin Ratio 0.9 (1.0-2.7) L 0.8 (1.0-2.7) L Lipase 138 U/L (73-393) 93 U/L (73-393) Activated Partial Thromboplast Time 22 SEC (23-33) L Amylase Level 77 U/L (25-115) Microbiology Date/Time Source Procedure Growth Status 04/18/19 19:25 Rectum Received Height (Feet): 5 Height (Inches): 2.00 Weight (Pounds): 167 Medications Current Medications Medications (Trade) Dose Ordered Sig/Radha Route PRN Reason Start Time Stop Time Status Last Admin Dose Admin Acetaminophen (Tylenol) 650 mg Q4H PRN ORAL fever 04/18/19 21:45 05/18/19 21:44 Amitriptyline HCl (Elavil) 20 mg BEDTIME ORAL 04/19/19 21:00 05/19/19 20:59 Aspirin (Ecotrin) 81 mg DAILY ORAL 04/19/19 11:45 05/19/19 11:44 UNV Atorvastatin Calcium (Lipitor) 80 mg BEDTIME ORAL 04/19/19 21:00 05/19/19 20:59 Dextrose (Dextrose 50%) 25 ml Q30M PRN IV Hypoglycemia 04/18/19 21:45 05/18/19 21:44 Dextrose (Dextrose 50%) 50 ml Q30M PRN IV Hypoglycemia 04/18/19 21:45 05/18/19 21:44 Dextrose/Sodium Chloride 1,000 ml @ 75 mls/hr [id number] IV 04/19/19 01:30 05/19/19 01:29 04/19/19 01:31 Diphenhydramine HCl (Benadryl) 25 mg Q6H PRN ORAL Itching/Pruritis 04/18/19 21:45 05/18/19 21:44 Heparin Sodium (Porcine) (Heparin 5000 units/ml) 5,000 units EVERY 12 HOURS SUBQ 04/19/19 09:00 05/19/19 08:59 04/19/19 09:15 Lorazepam (Ativan 2mg/ml 1ml) 1 mg Q4H PRN IV agitation 04/18/19 21:45 04/25/19 21:44 Metoclopramide HCl (Reglan) 5 mg Q6H PRN IVP servere maria de jesussea 04/18/19 21:45 05/18/19 21:44 Metoprolol Succinate (Toprol XL) 25 mg BID ORAL 04/19/19 12:00 05/19/19 11:59 Morphine Sulfate (Morphine Sulfate) 2 mg Q4H PRN IVP severe Pain (Pain Scale 7-10) 04/18/19 21:45 04/25/19 21:44 Nitroglycerin (Ntg) 0.4 mg Q5M X 3 DOSES PRN SL Prn Chest Pain 04/18/19 21:45 05/18/19 21:44 Ondansetron HCl (Zofran ODT) 4 mg EVERY 8 HOURS ORAL 04/19/19 06:00 05/19/19 05:59 04/19/19 06:01 Ondansetron HCl (Zofran) 4 mg Q6H PRN IVP Nausea & Vomiting 04/18/19 21:45 05/18/19 21:44 Pantoprazole (Protonix) 40 mg DAILY IV 04/19/19 09:00 05/19/19 08:59 04/19/19 09:12 Polyethylene Glycol (Miralax) 17 gm BEDTIME ORAL 04/19/19 21:00 05/19/19 20:59 Polyethylene Glycol (Miralax) 17 gm HSPRN PRN ORAL Constipation 04/18/19 21:45 05/18/19 21:44 Promethazine HCl (Phenergan) 25 mg Q6H PRN IM Refractory N/V 04/18/19 21:45 05/18/19 21:44 Sucralfate (Carafate) 1 gm TID ORAL 04/19/19 09:00 05/19/19 08:59 04/19/19 09:12 Temazepam (Restoril) 15 mg HSPRN PRN ORAL Insomnia 04/18/19 21:45 04/25/19 21:44 Assessment/Plan Problem List: (1) Purulent bronchitis ICD Codes: J41.1 - Mucopurulent chronic bronchitis SNOMED: 97321116 (2) Chest pain ICD Codes: R07.9 - Chest pain, unspecified SNOMED: 79212758 Qualifiers: Qualified Codes: R07.9 - Chest pain, unspecified (3) Epigastric pain ICD Codes: R10.13 - Epigastric pain SNOMED: 40770573 (4) Stented coronary artery ICD Codes: Z95.5 - Presence of coronary angioplasty implant and graft SNOMED: 75561100, 682925727 (5) GERD (gastroesophageal reflux disease) ICD Codes: K21.9 - Gastro-esophageal reflux disease without esophagitis SNOMED: 129428387 Qualifiers: Qualified Codes: K21.9 - Gastro-esophageal reflux disease without esophagitis (6) HTN (hypertension) ICD Codes: I10 - Essential (primary) hypertension SNOMED: 97259106 Assessment/Plan: respiratory treatment antitussives symptomatic GI treatment Nory doesn't have Brilinta, She has to bring her own or take Plavix at the hospital Cardiology called. Chano Ling MD Apr 19, 2019 11:56
[2019-04-19] MEDS ORDERED: Metoprolol Succinate XL 25mg tab ORAL SCH (12:00)
[2019-04-19] MEDS ORDERED: guaiFENesin ER 600mg tab ORAL SCH (12:07)
--- NOTE | 2019-04-19 12:07 | NUR ---
NURSE NOTES: Dr. Ling ordered cardiac diet for patient.
--- NOTE | 2019-04-19 12:09 | NUR ---
NURSE NOTES: Patient verbalized that she's allergic to ibuprofen. she gets abdominal pain. But she's ok with aspirin since she's taking it at home.
[2019-04-19] MEDS ORDERED: Aspirin EC 81mg tab ORAL SCH (12:12)
--- NOTE | 2019-04-19 12:36 | Diagnostic Imaging Report ---
Indication: Chest pain Comparison: 03/29/2019 A single view chest radiograph was obtained. Findings: No definite infiltrate or pulmonary vascular congestion identified. The heart is enlarged. The aorta is mildly enlarged consistent with atherosclerotic vascular disease. The bones are osteopenic. Impression: No acute disease
--- NOTE | 2019-04-19 13:58 | GI Initial Consult Note ---
History of Present Illness General Date patient seen: Apr 19, 2019 Time patient seen: 13:53 Reason for Hospitalization: Abdominal Pain Referring physician: DESTINEY PEDRAZA Reason for Consultation: PANCREATITIS Present Illness HPI 74-year-old female presents ED for evaluation. Complaining of epigastric pain for the last 6 hours. Sharp, 8/10 radiating to chest. denies shortness of breath. History of GERD. States it often presents with similar pain. States that 3 weeks ago she was at [facility] for chest pain and had stents placed. Denies alcohol or drug use. No other aggravating relieving factors. Denies any other associated symptoms GI consulted for reported epigastric pain for approximately 6 hours. Patient seen, awake alert oriented x4 no apparent distress. At the time of evaluation, the patient denied any abdominal pain. Denied any nausea vomiting constipation or diarrhea. Patient noted that was able to tolerate her diet without any complications. The patient had an endoscopy and colonoscopy earlier this year summary of findings noted below. SUMMARY OF FINDINGS: 1. A 3-cm hiatal hernia. 2. Distal esophageal ring. 3. GE junction was found at about 30 cm from the incisors, so short esophagus. 4. Multiple gastric polyps, most probably fundic gland polyps. 5. Gastritis, status post biopsy. 6. Fair colonic prep without any obvious findings. 7. Internal hemorrhoids. Home Meds Active Scripts Polyethylene Glycol 3350 (MIRALAX) 119 Gm Powder, 17 GM ORAL BEDTIME for 30 Days , GM Prov:Chano Ling MD 03/09/19 Docusate Sodium* (COLACE*) 100 Mg Capsule, 100 MG ORAL THREE TIMES A DAY for 30 Days, CAP Prov:Chano Ling MD 03/09/19 Dicyclomine Hcl* (DICYCLOMINE HCL*) 10 Mg Capsule, 10 MG ORAL QID, #20 CAP Prov:Sebas Alcocer MD 03/07/19 Ondansetron Odt* (ZOFRAN ODT*) 4 Mg Tab.rapdis, 4 MG BC EVERY 8 HOURS, #10 TAB 0 Refills Prov:Sebas Alcocer MD 03/07/19 Pantoprazole* (PANTOPRAZOLE*) 40 Mg Tablet.dr, 40 MG ORAL DAILY, #60 TAB Prov:Lux Torres MD 01/24/19 Reported Medications Simethicone (SIMETHICONE) 40 Mg/0.6 Ml Drops.susp, 80 MG PO EVERY 6 HOURS PRN for To Patient Comfort 04/19/19 Benzonatate (Tessalon Perle) 100 Mg Capsule, 100 MG ORAL THREE TIMES A DAY, PERLE 04/19/19 Ticagrelor (Brilinta) 60 Mg Tablet, 90 MG PO BID, TAB 04/19/19 Metoprolol Succinate* (METOPROLOL SUCCINATE*) 25 Mg Tab.er.24h, 25 MG ORAL BID, TAB 04/19/19 Lisinopril (LISINOPRIL*) 5 Mg Tablet, 5 MG ORAL DAILY, TAB 04/19/19 Guaifenesin (GUAIFENESIN) 200 Mg Tablet, 600 MG ORAL Q12HR, #30 TAB 0 Refills 04/19/19 Cetirizine Hcl (ZYRTEC) 10 Mg Capsule, 10 MG ORAL BEDTIME, #30 CAP 0 Refills 04/19/19 Atorvastatin (Lipitor) 80 Mg Tablet, 80 MG ORAL BEDTIME, #30 TAB 0 Refills 04/19/19 Amoxicillin/Potassium Clav 500-125 Tablet* (AUGMENTIN 500-125 TABLET*) 1 Each Tablet, 1 TAB ORAL DAILY, TAB 04/19/19 Aspirin* (ASPIR 81*) 81 Mg Tablet.dr, 81 MG ORAL DAILY, TAB 04/19/19 Amitriptyline Hcl* (AMITRIPTYLINE HCL*) 10 Mg Tablet, 20 MG ORAL BEDTIME, TAB 03/08/19 Sucralfate* (CARAFATE*) 1 Gm Tablet, 1 GM ORAL TID, TAB 11/06/18 Med list reviewed/reconciled: Yes Allergies: Coded Allergies: IBUPROFEN (Verified Allergy, Intermediate, 04/19/19) Abdominal Pain with Ibuprofen, but OK with aspisrin per patient Broccoli (Verified Allergy, Unknown, 08/10/18) LACTOSE (Verified Allergy, Unknown, 08/10/18) Lactose intolerant MILK (Verified Allergy, Unknown, 08/10/18) ONION (Verified Allergy, Unknown, 08/10/18) ORANGE JUICE (Verified Allergy, Unknown, 08/10/18) TOMATO (Verified Allergy, Unknown, 08/10/18) Patient History History Provided By: Patient PMH Narrative Past Medical History: HTN, CAD, GERD Past Surgical History: none Pertinent Family History: none Social History: Denies: smoking, alcohol use, drug use Now: No Immunizations: UTD Reviewed Nursing Documentation: PMH: Agreed; PSxH: Agreed Nursing Documentation-PMH Past Medical History: No History, Except For Hx Cardiac Problems: Yes - tachycardia Hx Hypertension: No Hx Pacemaker: No Hx Asthma: No Hx COPD: No Hx Diabetes: No Hx Cancer: No Hx Gastrointestinal Problems: Yes Hx Dialysis: No Hx Neurological Problems: No Hx Cerebrovascular Accident: No Hx Seizures: No Social History: Denies: smoking, alcohol use, drug use, other Review of Systems All Other Systems: negative except mentioned in HPI Physical Exam Vital Signs Date Time Temp Pulse Resp B/P (MAP) Pulse Ox O2 Delivery O2 Flow Rate FiO2 04/18/19 18:05 97.9 96 20 101/69 (80) 97 Room Air 04/19/19 05:19 21 Sp02 EP Interpretation: reviewed, normal Labs Laboratory Tests Test 04/18/19 18:43 04/19/19 05:00 White Blood Count 7.1 K/UL (4.8-10.8) 5.0 K/UL (4.8-10.8) Red Blood Count 4.69 M/UL (4.20-5.40) 3.96 M/UL (4.20-5.40) L Hemoglobin 10.7 G/DL (12.0-16.0) L 9.1 G/DL (12.0-16.0) L Hematocrit 34.4 % (37.0-47.0) L 29.2 % (37.0-47.0) L Mean Corpuscular Volume 73 FL (80-99) L 74 FL (80-99) L Mean Corpuscular Hemoglobin 22.8 PG (27.0-31.0) L 23.0 PG (27.0-31.0) L Mean Corpuscular Hemoglobin Concent 31.1 G/DL (32.0-36.0) L 31.1 G/DL (32.0-36.0) L Red Cell Distribution Width 14.7 % (11.6-14.8) 15.0 % (11.6-14.8) H Platelet Count 292 K/UL (150-450) 220 K/UL (150-450) Mean Platelet Volume 8.2 FL (6.5-10.1) 7.9 FL (6.5-10.1) Neutrophils (%) (Auto) 78.2 % (45.0-75.0) H 61.0 % (45.0-75.0) Lymphocytes (%) (Auto) 12.4 % (20.0-45.0) L 21.2 % (20.0-45.0) Monocytes (%) (Auto) 7.2 % (1.0-10.0) 13.6 % (1.0-10.0) H Eosinophils (%) (Auto) 1.5 % (0.0-3.0) 3.3 % (0.0-3.0) H Basophils (%) (Auto) 0.8 % (0.0-2.0) 0.9 % (0.0-2.0) Sodium Level 138 MMOL/L (136-145) 134 MMOL/L (136-145) L Potassium Level 4.4 MMOL/L (3.5-5.1) 3.9 MMOL/L (3.5-5.1) Chloride Level 102 MMOL/L (98-107) 102 MMOL/L (98-107) Carbon Dioxide Level 23 MMOL/L (21-32) 28 MMOL/L (21-32) Anion Gap 13 mmol/L (5-15) 4 mmol/L (5-15) L Blood Urea Nitrogen 19 mg/dL (7-18) H 16 mg/dL (7-18) Creatinine 1.3 MG/DL (0.55-1.30) 1.0 MG/DL (0.55-1.30) Estimat Glomerular Filtration Rate mL/min (>60) mL/min (>60) Glucose Level 108 MG/DL (74-106) H 177 MG/DL (74-106) H Calcium Level 9.6 MG/DL (8.5-10.1) 8.0 MG/DL (8.5-10.1) L Total Bilirubin 1.1 MG/DL (0.2-1.0) H 0.9 MG/DL (0.2-1.0) Direct Bilirubin 0.2 MG/DL (0.0-0.3) Aspartate Amino Transf (AST/SGOT) 50 U/L (15-37) H 43 U/L (15-37) H Alanine Aminotransferase (ALT/SGPT) 60 U/L (12-78) 48 U/L (12-78) Alkaline Phosphatase 174 U/L (46-116) H 135 U/L (46-116) H Troponin I 0.000 ng/mL (0.000-0.056) Total Protein 8.0 G/DL (6.4-8.2) 6.6 G/DL (6.4-8.2) Albumin 3.7 G/DL (3.4-5.0) 3.0 G/DL (3.4-5.0) L Globulin 4.3 g/dL 3.6 g/dL Albumin/Globulin Ratio 0.9 (1.0-2.7) L 0.8 (1.0-2.7) L Lipase 138 U/L (73-393) 93 U/L (73-393) Activated Partial Thromboplast Time 22 SEC (23-33) L Amylase Level 77 U/L (25-115) General Appearance: well appearing, no apparent distress, alert Head: normocephalic EENT: PERRL/EOMI, normal ENT inspection Neck: supple Respiratory: normal breath sounds, no respiratory distress Cardiovascular: normal rate Gastrointestinal: normal inspection, non tender, soft, normal bowel sounds, non -distended Rectal: deferred Genitourinary: no CVA tenderness Musculoskeletal: normal inspection, back normal Neurologic: alert, oriented x3, responsive, normal inspection Psychiatric: normal inspection, judgement/insight normal, memory normal Skin: normal inspection, normal color, no rash, warm/dry, palpation normal, well hydrated Lymphatic: normal inspection, no adenopathy Current Medications Current Medications Medications (Trade) Dose Ordered Sig/Radha Route PRN Reason Start Time Stop Time Status Last Admin Dose Admin Acetaminophen (Tylenol) 650 mg Q4H PRN ORAL fever 04/18/19 21:45 05/18/19 21:44 Amitriptyline HCl (Elavil) 20 mg BEDTIME ORAL 04/19/19 21:00 05/19/19 20:59 Amoxicillin/ Clavulanate Potassium (Augmentin) 500 mg ONCE ORAL 04/19/19 14:00 04/19/19 16:00 Aspirin (Ecotrin) 81 mg DAILY ORAL 04/19/19 13:30 05/19/19 12:11 Atorvastatin Calcium (Lipitor) 80 mg BEDTIME ORAL 04/19/19 21:00 05/19/19 20:59 Cetirizine HCl (ZyrTEC) 10 mg BEDTIME ORAL 04/19/19 21:00 05/19/19 20:59 Dextrose (Dextrose 50%) 25 ml Q30M PRN IV Hypoglycemia 04/18/19 21:45 05/18/19 21:44 Dextrose (Dextrose 50%) 50 ml Q30M PRN IV Hypoglycemia 04/18/19 21:45 05/18/19 21:44 Dextrose/Sodium Chloride 1,000 ml @ 75 mls/hr [id number] IV 04/19/19 01:30 05/19/19 01:29 04/19/19 01:31 Diphenhydramine HCl (Benadryl) 25 mg Q6H PRN ORAL Itching/Pruritis 04/18/19 21:45 05/18/19 21:44 Guaifenesin/ Codeine Phosphate (Robitussin with codeine) 5 ml Q6H PRN ORAL For Cough 04/19/19 12:23 05/19/19 12:22 Heparin Sodium (Porcine) (Heparin 5000 units/ml) 5,000 units EVERY 12 HOURS SUBQ 04/19/19 09:00 05/19/19 08:59 04/19/19 09:15 Lisinopril (ZestriL) 5 mg DAILY ORAL 04/19/19 13:45 05/19/19 13:44 Lorazepam (Ativan 2mg/ml 1ml) 1 mg Q4H PRN IV agitation 04/18/19 21:45 04/25/19 21:44 Metoclopramide HCl (Reglan) 5 mg Q6H PRN IVP servere nauasea 04/18/19 21:45 05/18/19 21:44 Metoprolol Succinate (Toprol XL) 25 mg Q12HR ORAL 04/19/19 21:00 05/19/19 20:59 Morphine Sulfate (Morphine Sulfate) 2 mg Q4H PRN IVP severe Pain (Pain Scale 7-10) 04/18/19 21:45 04/25/19 21:44 Nitroglycerin (Ntg) 0.4 mg Q5M X 3 DOSES PRN SL Prn Chest Pain 04/18/19 21:45 05/18/19 21:44 Ondansetron HCl (Zofran ODT) 4 mg EVERY 8 HOURS ORAL 04/19/19 06:00 05/19/19 05:59 04/19/19 06:01 Ondansetron HCl (Zofran) 4 mg Q6H PRN IVP Nausea & Vomiting 04/18/19 21:45 05/18/19 21:44 Pantoprazole (Protonix) 40 mg DAILY IV 04/19/19 09:00 05/19/19 08:59 04/19/19 09:12 Patient Own Medication (Patient's Own Med) 1 ea BID ORAL 04/19/19 18:00 05/19/19 17:59 Polyethylene Glycol (Miralax) 17 gm BEDTIME ORAL 04/19/19 21:00 05/19/19 20:59 Polyethylene Glycol (Miralax) 17 gm HSPRN PRN ORAL Constipation 04/18/19 21:45 05/18/19 21:44 Promethazine HCl (Phenergan) 25 mg Q6H PRN IM Refractory N/V 04/18/19 21:45 05/18/19 21:44 Sucralfate (Carafate) 1 gm TID ORAL 04/19/19 09:00 05/19/19 08:59 04/19/19 09:12 Temazepam (Restoril) 15 mg HSPRN PRN ORAL Insomnia 04/18/19 21:45 04/25/19 21:44 GI: Plan Problems: (1) GERD (gastroesophageal reflux disease) (2) Gastroenteritis (3) Epigastric pain (4) Gastritis Plan No plans for any GI procedures at this time symptomatic treatment Continue PPI PRN transfusions Zofran as needed Follow labs Outpatient follow-up Discussed with Dr. Zheng. Thank you for this patient referral, we will follow. The patient was seen and examined at bedside and all new and available data was reviewed in the patients chart. I agree with the above findings, impression and plan. (Patient seen earlier today. Signature stamp does not reflect patient encounter time.). - MD Arlin Kumar,Juli-Vinayak GRADE TAMPER Apr 19, 2019 13:58
[2019-04-19] MEDS: Aspirin EC 81mg tab ORAL SCH (14:06)
[2019-04-19] MEDS: Lisinopril 2.5mg tab ORAL SCH (14:06)
[2019-04-19] MEDS: guaiFENesin w/Codeine 5ml Liq ud ORAL PRN ×2 (14:09→21:05)
[2019-04-19] MEDS ORDERED: Levofloxacin 500mg tab ORAL SCH (14:30)
--- NOTE | 2019-04-19 16:16 | Diagnostic Imaging Report ---
Indication: Abdominal pain Technique: Grayscale and duplex Doppler imaging of the abdomen performed. Comparison: None Findings: The liver is unremarkable. Doppler interrogation of the main portal vein shows patency with hepatopedal, monophasic flow. There is no biliary ductal dilatation identified. Gallbladder is unremarkable. CBD is 4 mm. There demonstrated part of the pancreas, aorta and IVC show no definite abnormalities. Both kidneys appear unremarkable. There is no hydronephrosis. There is a left renal cyst measuring 2.6 cm. There is a 1 cm right renal cyst. IMPRESSION: No acute findings Bilateral renal cysts
--- NOTE | 2019-04-19 16:23 | NUR ---
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
[2019-04-19] MEDS: BRILINTA 90 MG ORAL SCH (17:56)
--- NOTE | 2019-04-19 19:14 | Cardiology Report ---
APPROVED REPORT EKG Measurement Heart [id number] OR 130P45 [id number] Normal sinus rhythm Voltage criteria for left ventricular hypertrophy Inferior infarct, age undetermined Abnormal ECG
--- NOTE | 2019-04-19 19:20 | NUR ---
HAND-OFF: Report given to Della Feng RN.
--- NOTE | 2019-04-19 19:25 | NUR ---
NURSE NOTES: Received report from Elizabeth GEORGE. Patient in bed awake,alert able to make needs known to staff. Denies any pain or discomfort.No s/s of acute distress noted. Watching TV. No complain of chest pain. no abdominal pain. No SOB oxygen saturation room air 99%. 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 Left hand #22 intact HL. Instructed patient to use call light for assistance. Bed alarm on. bed locked and in low position. Patient ambulatory. provided with hazard free environment. all needs attended promptly. will continue plan of care.
--- NOTE | 2019-04-19 19:41 | History & Physical ---
History and Physical History & Physicial Dictated for Int Med-DR Calvillo no. [id number]. Angus Brooks MD Apr 19, 2019 19:41
--- NOTE | 2019-04-19 19:57 | Cardiology Progress Note ---
Assessment/Plan Assessment/Plan [id number] 1 chonic recurrent atypical abd / chest pains non cardiac 2. s/p recent inferior mi (with different pain than her chronic recurrent pain noted above) now post stents 3. cad hs 4. hiatal hernia with gastritis pain this admission agian similar to her prior non caraic pain all trop neg ekg not show any st elevation , evolving t inversion form prior inferior mi dapt , statin bb Objective Last 24 Hour Vital Signs Date Time Temp Pulse Resp B/P (MAP) Pulse Ox O2 Delivery O2 Flow Rate FiO2 04/19/19 16:00 96.1 82 22 110/51 (70) 99 04/19/19 15:16 107 04/19/19 14:06 122/56 04/19/19 12:00 98.6 83 22 122/56 (78) 100 04/19/19 11:26 72 04/19/19 10:44 Room Air 04/19/19 08:00 98.2 86 23 155/79 (104) 96 04/19/19 07:59 73 04/19/19 07:35 98.7 60 15 123/87 98 Room Air 04/19/19 05:20 78 15 100 Room Air 21 71 18 98 04/19/19 05:19 71 18 99 Room Air 21 04/19/19 05:16 98.7 74 20 108/64 100 Room Air 04/19/19 03:33 98.3 77 19 100/59 99 Room Air 04/19/19 01:14 97.9 71 16 107/57 96 Room Air 04/18/19 23:49 98.5 69 13 99/51 96 Room Air 04/18/19 21:44 98.9 76 17 101/58 98 Room Air Intake and Output 04/18/19 04/19/19 19:00 07:00 Intake Total 1075 ml Balance 1075 ml IV Total 1075 ml # Voids 1 Laboratory Tests Test 04/19/19 05:00 White Blood Count 5.0 K/UL (4.8-10.8) Red Blood Count 3.96 M/UL (4.20-5.40) L Hemoglobin 9.1 G/DL (12.0-16.0) L Hematocrit 29.2 % (37.0-47.0) L Mean Corpuscular Volume 74 FL (80-99) L Mean Corpuscular Hemoglobin 23.0 PG (27.0-31.0) L Mean Corpuscular Hemoglobin Concent 31.1 G/DL (32.0-36.0) L Red Cell Distribution Width 15.0 % (11.6-14.8) H Platelet Count 220 K/UL (150-450) Mean Platelet Volume 7.9 FL (6.5-10.1) Neutrophils (%) (Auto) 61.0 % (45.0-75.0) Lymphocytes (%) (Auto) 21.2 % (20.0-45.0) Monocytes (%) (Auto) 13.6 % (1.0-10.0) H Eosinophils (%) (Auto) 3.3 % (0.0-3.0) H Basophils (%) (Auto) 0.9 % (0.0-2.0) Activated Partial Thromboplast Time 22 SEC (23-33) L Sodium Level 134 MMOL/L (136-145) L Potassium Level 3.9 MMOL/L (3.5-5.1) Chloride Level 102 MMOL/L (98-107) Carbon Dioxide Level 28 MMOL/L (21-32) Anion Gap 4 mmol/L (5-15) L Blood Urea Nitrogen 16 mg/dL (7-18) Creatinine 1.0 MG/DL (0.55-1.30) Estimat Glomerular Filtration Rate mL/min (>60) Glucose Level 177 MG/DL (74-106) H Calcium Level 8.0 MG/DL (8.5-10.1) L Total Bilirubin 0.9 MG/DL (0.2-1.0) Aspartate Amino Transf (AST/SGOT) 43 U/L (15-37) H Alanine Aminotransferase (ALT/SGPT) 48 U/L (12-78) Alkaline Phosphatase 135 U/L (46-116) H Total Protein 6.6 G/DL (6.4-8.2) Albumin 3.0 G/DL (3.4-5.0) L Globulin 3.6 g/dL Albumin/Globulin Ratio 0.8 (1.0-2.7) L Amylase Level 77 U/L (25-115) Lipase 93 U/L (73-393) Microbiology Date/Time Source Procedure Growth Status 04/18/19 19:25 Rectum Received Calderon Winters MD Apr 19, 2019 19:57
--- NOTE | 2019-04-19 20:15 | History and Physical Report ---
DATE OF ADMISSION: 04/18/2019 CHIEF COMPLAINT: The patient is a 74-year-old female, who presents with a chief complaint of epigastric pain and chest pain. HISTORY OF PRESENT ILLNESS: The patient was admitted to [facility] in 02/2019 with similar complaints. Please see history and physical and discharge summary dictated at that time. The patient apparently had a cardiac catheterization with stents placed in the coronary arteries at [facility] a couple weeks ago. The patient presented to [facility] emergency room complaining of epigastric pain, which radiated to the chest. The patient thought she may be having acute coronary syndrome. The patient presented to [facility] emergency room. The patient is admitted with epigastric/chest pain to rule out acute coronary syndrome. REVIEW OF SYSTEMS: CONSTITUTIONAL: The patient denies weight loss or weight gain. The patient denies fevers or chills. HEENT: The patient denies ear or throat pain. The patient denies headache. CARDIOVASCULAR: The patient complains of chest pain as above. The patient denies palpitations. ABDOMINAL: The patient denies nausea, vomiting, diarrhea, or constipation. The patient complains of epigastric pain as above. NEUROMUSCULAR: The patient denies seizures or generalized weakness. GENITOURINARY: The patient denies dysuria or increased frequency of urination. PAST MEDICAL HISTORY: Significant for, 1. Gastritis, status post endoscopy in January 2019. 2. Gastroesophageal reflux disease. 3. Hiatal hernia. 4. Hypertension. 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 6. Osteoarthritis of the spine. 7. Coronary artery disease, status post stent placement as above. PAST SURGICAL HISTORY: Significant for, 1. Exploratory laparotomy for tubo-ovarian abscess in 1972. 2. Cardiac catheterization as above with stents placed. CURRENT MEDICATIONS: 1. Amitriptyline 10 mg 2 tablets p.o. at bedtime. 2. Aspirin 81 mg p.o. daily. 3. Lipitor 80 mg p.o. daily. 4. Lisinopril 5 mg p.o. daily. 5. Metoprolol 25 mg p.o. twice daily. 6. Pantoprazole 40 mg p.o. daily. 7. Carafate 1 g p.o. three times daily. 8. Brilinta 90 mg p.o. twice daily. ALLERGIES: 1. Ibuprofen. 2. Lactose. 3. Milk. 4. Onions. 5. Thayer juice. 6. Tomatoes. SOCIAL HISTORY: The patient is single and lives alone. The patient denies tobacco or alcohol use. PHYSICAL EXAMINATION: VITAL SIGNS: Temperature 97.9, respirations 20, pulse 96, blood pressure 101/69. GENERAL: The patient is a well-developed, well-nourished female, in no apparent distress. HEENT: Eyes, pupils equal and responsive to light and accommodation. Extraocular movements are intact. NECK: Supple. No lymphadenopathy. CHEST: Lungs are clear to auscultation bilaterally without wheezes or rales. CARDIOVASCULAR: Regular rhythm and rate. Normal S1, S2 normal without murmurs, rubs, or gallops. ABDOMEN: Soft, tender to palpation in the epigastric region, no rebound or guarding noted. EXTREMITIES: Negative for clubbing, cyanosis, or edema. RECTAL: Not performed. GENITAL: Not performed. NEUROLOGIC: Cranial nerves II through XII are grossly intact without focal deficits. Motor strength is 5/5 bilaterally. Deep tendon reflexes are 2+ plantar. LABORATORY AND DIAGNOSTIC DATA: Laboratory studies, WBC 7.1, hemoglobin 10.7, hematocrit 34.4, platelets 292,000. Sodium 138, potassium 4.4, chloride 102, CO2 23, BUN 19, creatinine 1.3, glucose 108. An abdominal ultrasound was reported as no acute findings. ASSESSMENT: This is a 74-year-old female with, 1. Epigastric pain. 2. Coronary artery disease. 3. Gastritis. 4. Gastroesophageal reflux disease. 5. Hiatal hernia. 6. Hypertension. 7. Paget's disease of the left femur. 8. Osteoarthritis. TREATMENT: 1. Epigastric pain. A Gastroenterology consultation has been obtained with Dr. Patrick Zheng. We will follow recommendations of Dr. Zheng. 2. Coronary artery disease. The patient is status post stent placement recently. A Cardiology consultation has been obtained with Dr. Calderon Winters. 3. Gastritis/gastroesophageal reflux disease. Continue Protonix as above. 4. Hiatal hernia. 5. Hypertension. Continue lisinopril and metoprolol as above. 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 7. Osteoarthritis. Angus Brooks M.D. DR: KEVIN JOB#: [id number] CC:
[2019-04-19] MEDS ORDERED: Miralax 17gm pkt ORAL SCH (21:00)
[2019-04-19] MEDS ORDERED: Atorvastatin 80mg tab ORAL SCH ×2 (21:00)
[2019-04-19] MEDS: Metoprolol Succinate XL 25mg tab ORAL SCH (21:07)
[2019-04-19] MEDS: Docusate 100mg cap ORAL SCH (21:10)
[2019-04-20] VITALS: BP 101/62
--- NOTE | 2019-04-20 00:15 | Consultation ---
DATE OF CONSULTATION: 04/19/2019 CARDIOLOGY CONSULTATION CONSULTING PHYSICIAN: Calderon Winters M.D. REFERRING PHYSICIAN: Chano Ling M.D. and Silvino Calvillo M.D. REASON FOR CONSULTATION: Chest pain. HISTORY OF PRESENT ILLNESS: This is an elderly female, who is known to me from prior evaluation and hospitalization. The patient has had innumerable admissions to different hospitals because of chest pains always having ruled out without any ST or T-wave abnormalities. The last time I saw her was back on 03/09/2019 where she has had some epigastric chest pain at that time, but she had known [id number] coronary artery disease on CT coronary angiography. She ruled out for myocardial infarction. As she has had workups previously, nothing was pursued. Apparently subsequent to that hospitalization, she ended up having a different type of pain. This was clearly different for her and she decided that she wanted to go to the hospital. Again, she was taken to the emergency room at [facility] by a cab where she was diagnosed with a myocardial infarction and she was noted to have occlusion of the right coronary artery and ended up percutaneous coronary intervention and was subsequently discharged home on Brilinta for ST-elevation myocardial infarction. She is discharged home. She has not had any more that pain that she had with that particular PA pain although she has a recurrence of this epigastric pain that she reports having when she is eating meat. This is clearly different than the PA pain that she experienced before. She has no PND or orthopnea. No dyspnea on exertion. No palpitations. PAST MEDICAL HISTORY: 1. Positive for now history of ST-elevation myocardial infarction with RCA occlusion on 03/16/2019, status post drug-eluting stents with Dr. Cerna at [facility]. 2. History of recurrent atypical chest pains with gastroesophageal reflux disease. 3. History of labyrinthitis. 4. Paget disease of bone. 5. Hiatal hernia. 6. Gastritis. 7. Osteoarthritis. 8. She has had a myocardial perfusion imaging at [facility] in 2018. No evidence of reversible defect. 9. She has had a CT coronary angiography in March 2018 showed 1 to 24% stenosis of left main, 1 to 24% mid RCA, 25 to 50% proximally, and 1 to 25% mid and distal RCA. ALLERGIES: She is allergic to weiner leaves, ibuprofen, onions and she has a history of lactose intolerance. SOCIAL HISTORY: Does not smoke or never did. Does not drink alcoholic beverages or never did. REVIEW OF SYSTEMS: GASTROINTESTINAL: She has got epigastric pain, gastritis, heartburn, reflux. No black or bloody stool. GENITOURINARY: Negative. PULMONARY: Positive for cough, bronchitis, and nasal discharge. CONSTITUTIONAL: Negative. PHYSICAL EXAMINATION: GENERAL: Shows to be elderly female, in no respiratory distress. HEENT: Unremarkable. NECK: Supple. No jugular venous distention. No abdominojugular reflux noted. LUNGS: Clear to auscultation and percussion. CARDIAC: S1 is normal. S2 is normal. Regular rate and rhythm. No heaves, thrills, or gallops noted. ABDOMEN: Soft, nontender. Positive bowel sounds. EXTREMITIES: There is no clubbing, cyanosis, or edema. NEUROLOGIC: She is awake and alert and responsive. LABORATORY VALUES: She has a white count of 5, hemoglobin 9.1, and platelet count of 220. Sodium is 134, potassium 3.9, chloride 102, bicarb of 28, BUN of 16, creatinine 1.0, glucose of 168. Calcium is 8. Cardiac enzymes on two separate occasions are completely negative. She had a x-ray of her chest that shows no acute cardiopulmonary disease process back in March of 2011. ASSESSMENT AND PLAN: 1. History of recurrent epigastric pain. 2. Coronary artery disease with history of ST-elevation myocardial infarction with RCA stent recently with a troponin peak of 58, post PCI. 3. Paget disease. 4. Hiatal hernia. 5. 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 This patient was seen in cardiac consultation. The patient has had multiple hospitalizations with negative workups previously for epigastric pain. She recently got admitted to the [facility] with a different type of chest pain corresponding to acute inferior myocardial infarction, she had percutaneous coronary intervention, and she was released. She is supposed to be on dual antiplatelet therapy with aspirin 81 mg, Lipitor 80 mg, lisinopril 5 mg, Toprol 25 mg twice a day, and Brilinta 90 mg 2 times daily. Those should be continued at least dual antiplatelet therapy and the statins. Her pain again remains atypical. This is the same pain she says that she has had on prior occasions, which to her is clearly different than the pain that she experienced with the myocardial infarction. Her cardiac enzymes are negative at this time and her EKG will be repeated. She understands to the PA pain specifically should she have that in the future to seek medical attention if she does have the pain lasting for more than 15 minutes. Nitroglycerin is on a p.r.n. basis for that pain. Calderon Winters M.D. DR: JOSE JOB#: [id number] CC:
--- NOTE | 2019-04-20 03:29 | NUR ---
TRANSFER TO FLOOR: Patient transferred to Telemetry 203-1 , per Dr. Calvillo. Report given to Amanda RN . Belongings and medications given to Amanda RN. Family and or S/O informed of transfer.
--- NOTE | 2019-04-20 03:30 | NUR ---
Received pt. awake and alert and in no distress. RE-oriented to room set up. Call light withiin easy reach.Continue with plan of care. Sinus on the monitor. V/S stable.
[2019-04-20 04:00] VITALS: BP 142/86
--- NOTE | 2019-04-20 06:35 | General Progress Note ---
Assessment/Plan Assessment/Plan: (1) GERD (gastroesophageal reflux disease) (2) Gastroenteritis (3) Epigastric pain (4) Gastritis Plan No plans for any GI procedures at this time symptomatic treatment Continue PPI PRN transfusions Zofran as needed Follow labs Outpatient follow-up Subjective ROS Limited/Unobtainable: Yes Allergies: Coded Allergies: IBUPROFEN (Verified Allergy, Intermediate, 04/19/19) Abdominal Pain with Ibuprofen, but OK with aspisrin per patient Broccoli (Verified Allergy, Unknown, 08/10/18) LACTOSE (Verified Allergy, Unknown, 08/10/18) Lactose intolerant MILK (Verified Allergy, Unknown, 08/10/18) ONION (Verified Allergy, Unknown, 08/10/18) ORANGE JUICE (Verified Allergy, Unknown, 08/10/18) TOMATO (Verified Allergy, Unknown, 08/10/18) Objective Last 24 Hour Vital Signs Date Time Temp Pulse Resp B/P (MAP) Pulse Ox O2 Delivery O2 Flow Rate FiO2 04/20/19 00:00 97.9 86 20 101/62 (75) 95 04/19/19 21:07 97 110/60 04/19/19 21:00 Room Air 04/19/19 20:00 97.7 97 20 108/56 (73) 99 04/19/19 20:00 90 04/19/19 16:00 96.1 82 22 110/51 (70) 99 04/19/19 15:16 107 04/19/19 14:06 122/56 04/19/19 12:00 98.6 83 22 122/56 (78) 100 04/19/19 11:26 72 04/19/19 10:44 Room Air 04/19/19 08:00 98.2 86 23 155/79 (104) 96 04/19/19 07:59 73 04/19/19 07:35 98.7 60 15 123/87 98 Room Air Intake and Output 04/19/19 04/20/19 19:00 07:00 Intake Total 360 ml 800 ml Balance 360 ml 800 ml Intake Oral 360 ml 800 ml # Voids 3 4 Height (Feet): 5 Height (Inches): 2.00 Weight (Pounds): 162 General Appearance: alert EENT: PERRL/EOMI Neck: supple Cardiovascular: normal rate Respiratory/Chest: decreased breath sounds Abdomen: normal bowel sounds, non tender, soft Extremities: non-tender Patrick Zheng MD Apr 20, 2019 06:35
[2019-04-20] MEDS: guaiFENesin w/Codeine 5ml Liq ud ORAL PRN ×2 (06:37→13:11)
--- NOTE | 2019-04-20 07:00 | NUR ---
NURSE NOTES: Received report from Cherry/Charge nurse, Patient is awake and alert, On room air, No acute distress/SOB noted. Denies pain at this time. Able to make needs known to stuff. Sinus rhythm on the monitor. IV on Left Hand patent, No infiltration or bleeding noted. Bed in low position and locked, Bed alarm engaged. Call light within reach, Encouraged to use call light when needed. Will continue to monitor.
[2019-04-20 08:00] VITALS: BP 123/56
[2019-04-20] MEDS: Pantoprazole Inj IV SCH (08:36)
[2019-04-20] MEDS: Sucralfate 1gm tab ORAL SCH ×2 (08:36→13:11)
[2019-04-20] MEDS: Metoprolol Succinate XL 25mg tab ORAL SCH (08:36)
[2019-04-20] MEDS: Docusate 100mg cap ORAL SCH (08:36)
[2019-04-20] MEDS: Aspirin EC 81mg tab ORAL SCH (08:36)
[2019-04-20] MEDS: Lisinopril 2.5mg tab ORAL SCH (08:37)
[2019-04-20] MEDS: Heparin 5000 units/ml inj SUBQ SCH (08:41)
[2019-04-20] MEDS: BRILINTA 90 MG ORAL SCH (08:51)
[2019-04-20 09:40] LABS: BASOPHILS % (AUTO) 0.7 % (0.0-2.0); EOSINOPHILS % (AUTO) 5.2 % (0.0-3.0); HEMATOCRIT 29.3 % (37.0-47.0); HEMOGLOBIN 9.1 G/DL (12.0-16.0); LYMPHOCYTES % (AUTO) 21.2 % (20.0-45.0); MEAN CORPUSCULAR VOLUME 74 FL (80-99); MONOCYTES % (AUTO) 9.9 % (1.0-10.0); PLATELET COUNT 238 K/UL (150-450); RED BLOOD COUNT 3.96 M/UL (4.20-5.40); RED CELL DISTRIBUTION WIDTH 15.2 % (11.6-14.8); WHITE BLOOD COUNT 5.1 K/UL (4.8-10.8)
[2019-04-20 10:42] LABS: ANION GAP 10 mmol/L (5-15); BLOOD UREA NITROGEN 17 mg/dL (7-18); CALCIUM 8.8 MG/DL (8.5-10.1); CARBON DIOXIDE 27 MMOL/L (21-32); CHLORIDE 106 MMOL/L (98-107); SODIUM 143 MMOL/L (136-145)
[2019-04-20 12:00] VITALS: BP 107/65
[2019-04-20] MEDS ORDERED: ZYRTEC10 M3 ORAL (12:04)
[2019-04-20] MEDS ORDERED: PROTONIX20 MG ORAL (12:04)
[2019-04-20] MEDS ORDERED: MIRALAX119 GM ORAL (12:06)
[2019-04-20] MEDS ORDERED: SUCRALFATE1 GM ORAL (12:06)
--- NOTE | 2019-04-20 12:08 | Pulmonology Progress Note ---
Assessment/Plan Problems: (1) Purulent bronchitis (2) Chest pain (3) Epigastric pain (4) Stented coronary artery (5) GERD (gastroesophageal reflux disease) (6) HTN (hypertension) Assessment/Plan improving no more abdominal pain symptomatic treatment f/u GI recommendations home prescriptions done Subjective ROS Limited/Unobtainable: No Constitutional: Reports: no symptoms HEENT: Repors: no symptoms Respiratory: Reports: no symptoms Gastrointestinal/Abdominal: Reports: no symptoms Genitourinary: Reports: no symptoms Neurologic: Reports: no symptoms Psychiatric: Reports: no symptoms Allergies: Coded Allergies: IBUPROFEN (Verified Allergy, Intermediate, 04/19/19) Abdominal Pain with Ibuprofen, but OK with aspisrin per patient Broccoli (Verified Allergy, Unknown, 08/10/18) LACTOSE (Verified Allergy, Unknown, 08/10/18) Lactose intolerant MILK (Verified Allergy, Unknown, 08/10/18) ONION (Verified Allergy, Unknown, 08/10/18) ORANGE JUICE (Verified Allergy, Unknown, 08/10/18) TOMATO (Verified Allergy, Unknown, 08/10/18) Objective Last 24 Hour Vital Signs Date Time Temp Pulse Resp B/P (MAP) Pulse Ox O2 Delivery O2 Flow Rate FiO2 04/20/19 09:00 Room Air 04/20/19 08:37 123/56 04/20/19 08:36 98 123/56 04/20/19 08:00 97.4 98 18 123/56 (78) 100 04/20/19 08:00 76 04/20/19 04:00 97.9 109 18 142/86 (104) 97 04/20/19 04:00 99 04/20/19 00:00 97.9 86 20 101/62 (75) 95 04/19/19 21:07 97 110/60 04/19/19 21:00 Room Air 04/19/19 20:00 97.7 97 20 108/56 (73) 99 04/19/19 20:00 90 04/19/19 16:00 96.1 82 22 110/51 (70) 99 04/19/19 15:16 107 04/19/19 14:06 122/56 Intake and Output 04/19/19 04/20/19 18:59 06:59 Intake Total 360 ml 800 ml Balance 360 ml 800 ml Intake Oral 360 ml 800 ml # Voids 3 4 General Appearance: WD/WN, no acute distress HEENT: normocephalic, atraumatic Respiratory/Chest: chest wall non-tender, lungs clear Breasts: no masses Cardiovascular: normal peripheral pulses, normal rate Abdomen: normal bowel sounds, non distended Skin: no rash Neurologic/Psychiatric: carver and checkerer specials II-XII grossly normal Microbiology Date/Time Source Procedure Growth Status 04/18/19 19:25 Rectum Received Laboratory Tests 04/20/19 09:20: White Blood Count 5.1, Red Blood Count 3.96L, Hemoglobin 9.1L, Hematocrit 29.3L , Mean Corpuscular Volume 74L, Mean Corpuscular Hemoglobin 23.0L, Mean Corpuscular Hemoglobin Concent 31.1L, Red Cell Distribution Width 15.2H, Platelet Count 238, Mean Platelet Volume 9.4, Neutrophils (%) (Auto) 63.0, Lymphocytes (%) (Auto) 21.2, Monocytes (%) (Auto) 9.9, Eosinophils (%) (Auto) 5.2H, Basophils (%) (Auto) 0.7, Sodium Level 143, Potassium Level 4.0, Chloride Level 106, Carbon Dioxide Level 27, Anion Gap 10, Blood Urea Nitrogen 17, Creatinine 1.0, Estimat Glomerular Filtration Rate , Glucose Level 110H, Calcium Level 8.8, Troponin I 0.000 Current Medications Medications (Trade) Dose Ordered Sig/Radha Route PRN Reason Start Time Stop Time Status Last Admin Dose Admin Acetaminophen (Tylenol) 650 mg Q4H PRN ORAL fever 04/18/19 21:45 05/18/19 21:44 Amitriptyline HCl (Elavil) 20 mg BEDTIME ORAL 04/19/19 21:00 05/19/19 20:59 Aspirin (Ecotrin) 81 mg DAILY ORAL 04/19/19 13:30 05/19/19 12:11 04/20/19 08:36 Atorvastatin Calcium (Lipitor) 80 mg BEDTIME ORAL 04/19/19 21:00 05/19/19 20:59 04/19/19 21:10 Cetirizine HCl (ZyrTEC) 10 mg BEDTIME ORAL 04/19/19 21:00 05/19/19 20:59 04/19/19 21:09 Dextrose (Dextrose 50%) 25 ml Q30M PRN IV Hypoglycemia 04/18/19 21:45 05/18/19 21:44 Dextrose (Dextrose 50%) 50 ml Q30M PRN IV Hypoglycemia 04/18/19 21:45 05/18/19 21:44 Diphenhydramine HCl (Benadryl) 25 mg Q6H PRN ORAL Itching/Pruritis 04/18/19 21:45 05/18/19 21:44 Docusate Sodium (Colace) 100 mg EVERY 12 HOURS ORAL 04/19/19 21:00 05/19/19 20:59 04/20/19 08:36 Guaifenesin/ Codeine Phosphate (Robitussin with codeine) 5 ml Q6H PRN ORAL For Cough 04/19/19 12:23 05/19/19 12:22 04/20/19 06:37 Heparin Sodium (Porcine) (Heparin 5000 units/ml) 5,000 units EVERY 12 HOURS SUBQ 04/19/19 09:00 05/19/19 08:59 04/20/19 08:41 Lisinopril (ZestriL) 5 mg DAILY ORAL 04/19/19 13:45 05/19/19 13:44 04/20/19 08:37 Lorazepam (Ativan 2mg/ml 1ml) 1 mg Q4H PRN IV agitation 04/18/19 21:45 04/25/19 21:44 Metoclopramide HCl (Reglan) 5 mg Q6H PRN IVP servere nauasea 04/18/19 21:45 05/18/19 21:44 Metoprolol Succinate (Toprol XL) 25 mg Q12HR ORAL 04/19/19 21:00 05/19/19 20:59 04/20/19 08:36 Morphine Sulfate (Morphine Sulfate) 2 mg Q4H PRN IVP severe Pain (Pain Scale 7-10) 04/18/19 21:45 04/25/19 21:44 Nitroglycerin (Ntg) 0.4 mg Q5M X 3 DOSES PRN SL Prn Chest Pain 04/18/19 21:45 05/18/19 21:44 Ondansetron HCl (Zofran ODT) 4 mg EVERY 8 HOURS ORAL 04/19/19 06:00 05/19/19 05:59 04/20/19 06:36 Ondansetron HCl (Zofran) 4 mg Q6H PRN IVP Nausea & Vomiting 04/18/19 21:45 05/18/19 21:44 Pantoprazole (Protonix) 40 mg DAILY IV 04/19/19 09:00 05/19/19 08:59 04/20/19 08:36 Patient Own Medication (Patient's Own Med) 1 ea BID ORAL 04/19/19 18:00 05/19/19 17:59 04/20/19 08:51 Polyethylene Glycol (Miralax) 17 gm BEDTIME ORAL 04/19/19 21:00 05/19/19 20:59 04/19/19 21:07 Polyethylene Glycol (Miralax) 17 gm HSPRN PRN ORAL Constipation 04/18/19 21:45 05/18/19 21:44 Promethazine HCl (Phenergan) 25 mg Q6H PRN IM Refractory N/V 04/18/19 21:45 05/18/19 21:44 Sucralfate (Carafate) 1 gm TID ORAL 04/19/19 09:00 05/19/19 08:59 04/20/19 08:36 Temazepam (Restoril) 15 mg HSPRN PRN ORAL Insomnia 04/18/19 21:45 04/25/19 21:44 Chano Ling MD Apr 20, 2019 12:08
--- NOTE | 2019-04-20 12:22 | Cardiology Progress Note ---
Assessment/Plan Assessment/Plan 1. History of recurrent epigastric pain. 2. Coronary artery disease with history of ST-elevation myocardial infarction with RCA stent recently with a troponin peak of 58, post PCI. 3. Paget disease. 4. Hiatal hernia. 5. 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 all trop neg prersent discomfort not cardiac pt nwo know the sx she needs to be on michael look out for as cardiac related er precuation for this pain d/w pt importance of dapt and statin d/w pt Subjective Cardiovascular: Denies: chest pain, lightheadedness, palpitations Respiratory: Reports: cough; Denies: shortness of breath Gastrointestinal/Abdominal: Denies: abdominal pain Genitourinary: Denies: burning Objective Last 24 Hour Vital Signs Date Time Temp Pulse Resp B/P (MAP) Pulse Ox O2 Delivery O2 Flow Rate FiO2 04/20/19 09:00 Room Air 04/20/19 08:37 123/56 04/20/19 08:36 98 123/56 04/20/19 08:00 97.4 98 18 123/56 (78) 100 04/20/19 08:00 76 04/20/19 04:00 97.9 109 18 142/86 (104) 97 04/20/19 04:00 99 04/20/19 00:00 97.9 86 20 101/62 (75) 95 04/19/19 21:07 97 110/60 04/19/19 21:00 Room Air 04/19/19 20:00 97.7 97 20 108/56 (73) 99 04/19/19 20:00 90 04/19/19 16:00 96.1 82 22 110/51 (70) 99 04/19/19 15:16 107 04/19/19 14:06 122/56 General Appearance: no apparent distress, alert Cardiovascular: normal rate Abdomen: non tender, soft Extremities: no swelling Intake and Output 04/19/19 04/20/19 18:59 06:59 Intake Total 360 ml 800 ml Balance 360 ml 800 ml Intake Oral 360 ml 800 ml # Voids 3 4 Laboratory Tests Test 04/20/19 09:20 White Blood Count 5.1 K/UL (4.8-10.8) Red Blood Count 3.96 M/UL (4.20-5.40) L Hemoglobin 9.1 G/DL (12.0-16.0) L Hematocrit 29.3 % (37.0-47.0) L Mean Corpuscular Volume 74 FL (80-99) L Mean Corpuscular Hemoglobin 23.0 PG (27.0-31.0) L Mean Corpuscular Hemoglobin Concent 31.1 G/DL (32.0-36.0) L Red Cell Distribution Width 15.2 % (11.6-14.8) H Platelet Count 238 K/UL (150-450) Mean Platelet Volume 9.4 FL (6.5-10.1) Neutrophils (%) (Auto) 63.0 % (45.0-75.0) Lymphocytes (%) (Auto) 21.2 % (20.0-45.0) Monocytes (%) (Auto) 9.9 % (1.0-10.0) Eosinophils (%) (Auto) 5.2 % (0.0-3.0) H Basophils (%) (Auto) 0.7 % (0.0-2.0) Sodium Level 143 MMOL/L (136-145) Potassium Level 4.0 MMOL/L (3.5-5.1) Chloride Level 106 MMOL/L (98-107) Carbon Dioxide Level 27 MMOL/L (21-32) Anion Gap 10 mmol/L (5-15) Blood Urea Nitrogen 17 mg/dL (7-18) Creatinine 1.0 MG/DL (0.55-1.30) Estimat Glomerular Filtration Rate mL/min (>60) Glucose Level 110 MG/DL (74-106) H Calcium Level 8.8 MG/DL (8.5-10.1) Troponin I 0.000 ng/mL (0.000-0.056) Microbiology Date/Time Source Procedure Growth Status 04/18/19 19:25 Rectum Received Calderon Winters MD Apr 20, 2019 12:22
--- NOTE | 2019-04-20 15:55 | NUR ---
NURSE NOTES: Discharge instruction and medication education given, Patient verbalized understanding. playground monitor and IV removed. No acute distress or bleeding noted. Belonging check done, no belonging missing. Medication given to patient. Patient is in stable condition. Vitals stable. Escorted downstairs, and patient left via taxi.
== END 2019-04-20 16:00 | disposition home or self-care (01) ==
LOC: EMR 18:44 → 2W 18:49 → EDBEDREQ 20:01 → 2W 04-19 08:30 → 2E 04-20 03:13
DX: R07.89 Other chest pain (principal); R10.13 Epigastric pain; I25.2 Old myocardial infarction; I25.10 Atherosclerotic heart disease of native coronary artery without angina pectoris; K44.9 Diaphragmatic hernia without obstruction or gangrene; K21.9 Gastro-esophageal reflux disease without esophagitis; M19.90 Unspecified osteoarthritis, unspecified site; Z88.6 Allergy status to analgesic agent; Z91.018 Allergy to other foods; E73.9 Lactose intolerance, unspecified; J20.9 Acute bronchitis, unspecified; K29.70 Gastritis, unspecified, without bleeding; Z79.82 Long term (current) use of aspirin; J41.1 Mucopurulent chronic bronchitis; Z95.5 Presence of coronary angioplasty implant and graft; K52.9 Noninfective gastroenteritis and colitis, unspecified; I11.9 Hypertensive heart disease without heart failure; M88.852 Osteitis deformans of left thigh
CPT/HCPCS: 36415 ×3; 71045; 76700; 80048; 80053 ×2; 82150; 82248; 83690 ×2; 84484 ×2; 85025 ×3; 85730; 87081 ×3; 93005; 94640; 94664; 96360; 96361; 96374; 96375; 99284; C9113 ×2; G0378 ×2; J1644 ×2; J2270; J2405; J7030; S0028

== ENCOUNTER 2019-05-31 08:19 | Emergency (ER) | payer MEDICARE, MEDICAID ==
[~2019-05-31] VITALS: Ht 157.5 cm; Wt 71.7 kg
[~2019-05-31 08:19] MED LIST changes: +ASPIR 8181 MG ORAL; +AUGMENTIN 500-1 EACH ORAL; +BRILINTA60 MG PO; +GUAIFENESIN200 MG ORAL; +LIPITOR80 MG ORAL; +LISINOPRIL5 MG ORAL; +METOPROLOL SUCC25 MG ORAL; +PROTONIX20 MG ORAL; +SIMETHICON40 MG/0.2 PO; +TESSALON PERLE100 M2 ORAL; +ZYRTEC10 M3 ORAL
--- NOTE | 2019-05-31 08:25 | NUR ---
ED Nurse Note: Patient came to ED from home c/o Abdominal pain since last night. Patient states she had this many times before. 8/10 aching pain in the medial anterior abdomen. No n/v or diarrhea. 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 Urine collected and sent to lab.
[2019-05-31 08:41] VITALS: BP_SYST 127
[2019-05-31] MEDS ORDERED: NITRO0.4 SL (08:45)
[2019-05-31] MEDS ORDERED: Mylanta II UD 30ml ORAL ONE (09:00)
[2019-05-31] MEDS ORDERED: Lidocaine 2% Visc 15ml soln ORAL ONE (09:00)
[2019-05-31] MEDS ORDERED: Dicyclomine HCl 10mg/5ml oral soln ORAL ONE (09:00)
[2019-05-31 09:32] LABS: APPEARANCE,URINE CLEAR; BILIRUBIN, URINE NEGATIVE (NEGATIVE); COLOR,URINE PALE YELLOW; GLUCOSE, URINE (UA) NEGATIVE (NEGATIVE); KETONES,URINE NEGATIVE (NEGATIVE); LEUKOCYTE ESTERASE ,URINE 2+ (NEGATIVE); NITRITE,URINE NEGATIVE (NEGATIVE); PH,URINE 5 (4.5-8.0); PROTEIN,URINE NEGATIVE (NEGATIVE); UROBILINOGEN,URINE NORMAL MG/DL (0.0-1.0)
--- NOTE | 2019-05-31 09:42 | Emergency Room Report ---
History of Present Illness General Chief Complaint: Abdominal Pain Source: Patient Present Illness HPI 74-year-old female presents ED for evaluation. Complaining of abdominal pain since last night. Epigastric, burning, 7 out of 10, nonradiating. History of acid reflux. Denies chest pain or shortness of breath. Denies nausea or vomiting. Denies diarrhea. Also complaining of runny nose congestion and sinus pain. Was seen by [facility] for this last week and was prescribed medications but states it is not helping. No other aggravating relieving factors. Denies any other associated symptoms Allergies: Coded Allergies: IBUPROFEN (Verified Allergy, Intermediate, 04/19/19) Abdominal Pain with Ibuprofen, but OK with aspisrin per patient Broccoli (Verified Allergy, Unknown, 08/10/18) LACTOSE (Verified Allergy, Unknown, 08/10/18) Lactose intolerant MILK (Verified Allergy, Unknown, 08/10/18) ONION (Verified Allergy, Unknown, 08/10/18) ORANGE JUICE (Verified Allergy, Unknown, 08/10/18) TOMATO (Verified Allergy, Unknown, 08/10/18) Patient History Past Medical History: MD, GERD Past Surgical History: none Pertinent Family History: none Social History: Denies: smoking, alcohol use, drug use Now: No Immunizations: UTD Reviewed Nursing Documentation: PMH: Agreed; PSxH: Agreed Nursing Documentation-PMH Past Medical History: No History, Except For Hx Cardiac Problems: Yes - tachycardia, MD Hx Hypertension: No Hx Pacemaker: No Hx Asthma: No Hx COPD: No Hx Diabetes: No Hx Cancer: No Hx Gastrointestinal Problems: Yes - gerd Hx Dialysis: No Hx Neurological Problems: No Hx Cerebrovascular Accident: No Hx Seizures: No Review of Systems All Other Systems: negative except mentioned in HPI Physical Exam Vital Signs Date Time Temp Pulse Resp B/P (MAP) Pulse Ox O2 Delivery O2 Flow Rate FiO2 05/31/19 08:23 97.5 89 17 127/ 99 Room Air Sp02 EP Interpretation: reviewed, normal General Appearance: no apparent distress, alert, GCS 15, non-toxic Head: normocephalic, atraumatic Eyes: bilateral eye normal inspection, bilateral eye PERRL ENT: hearing grossly normal, normal pharynx, no angioedema, normal voice Neck: full range of motion, supple/symm/no masses Respiratory: chest non-tender, lungs clear, normal breath sounds, speaking full sentences Cardiovascular #1: regular rate, rhythm, no edema Cardiovascular #2: 2+ carotid (R), 2+ carotid (L), 2+ radial (R), 2+ radial (L) , 2+ dorsalis pedis (R), 2+ dorsalis pedis (L) Gastrointestinal: normal bowel sounds, soft, non-distended, no guarding, no rebound, tenderness - epigastric Rectal: deferred Genitourinary: normal inspection, no CVA tenderness Musculoskeletal: back normal, normal range of motion, gait/station normal, non- tender Neurologic: alert, motor strength/tone normal, oriented x3, sensory intact, responsive, speech normal Psychiatric: judgement/insight normal, memory normal, mood/affect normal, no suicidal/homicidal ideation Reflexes: 3+ bicep (R), 3+ bicep (L), 3+ tricep (R), 3+ tricep (L), 3+ knee (R) , 3+ knee (L) Lymphatic: no adenopathy Medical Decision Making Diagnostic Impression: Primary Impression: Gastritis Qualified Codes: K29.00 - Acute gastritis without bleeding Additional Impression: Sinusitis Qualified Codes: J01.10 - Acute frontal sinusitis, unspecified ER Course Hospital Course 74-year-old F presents to ED with epigastric pain. sinus congestion and cough differential diagnosis: gastritis, SBO, cholecystits Clinical course Patient placed on stretcher. On equipment monitor phototypesetting. After initial history and physical I ordered GI cocktail, pepcid, EKG EKG - NSR, no acute ischemic changes interpreted by me Vitals stable. Abdomen unremarkable on exam. Patient has been here multiple times for similar presentation. Work-ups have been negative. I do not suspect cardiac. Symptoms improved after medications. Patient sinus symptoms have not resolved after [id number] medications. Will discharge with antibiotics. Safe for discharge. States she has a PMD I feel this is a highly complex case requiring extensive working including EKG/ Rhythm strip, Xray/CT/US, Blood/urine lab work, repeat exams while in ED, and administration of strong opiates/narcotics for pain control, admission to hospital or close patient follow up. Diagnosis - gastritis, sinusitis Stable and discharged to home with prescriptions for Zantac, amoxicillin. Followup with PMD. Return to ED if symptoms recur or worsen Labs Test 05/31/19 08:50 Urine Color Pale yellow Urine Appearance Clear Urine pH 5 (4.5-8.0) Urine Specific [place] 1.015 (1.005-1.035) Urine Protein Negative (NEGATIVE) Urine Glucose (UA) Negative (NEGATIVE) Urine Ketones Negative (NEGATIVE) Urine Blood Negative (NEGATIVE) Urine Nitrite Negative (NEGATIVE) Urine Bilirubin Negative (NEGATIVE) Urine Urobilinogen Normal MG/DL (0.0-1.0) Urine Leukocyte Esterase 2+ (NEGATIVE) Urine RBC 0-2 /HPF (0 - 2) Urine WBC 2-4 /HPF (0 - 2) Urine Squamous Epithelial Cells Occasional /LPF Urine Bacteria Few /HPF (NONE) EKG Diagnostic Results Rate: normal Rhythm: NSR ST Segments: no acute changes ASA given to the pt in ED: No Rhythm Strip Diag. Results EP Interpretation: yes Rhythm: NSR, no PVC's, no ectopy Last Vital Signs Date Time Temp Pulse Resp B/P (MAP) Pulse Ox O2 Delivery O2 Flow Rate FiO2 05/31/19 08:41 97.5 81 17 127/ 99 Room Air Status: improved Disposition: HOME, SELF-CARE Condition: Stable Scripts D-Methorphan Hb/Prometh Hcl* (PROMETHAZINE-DM SYRUP*) 118 Ml Syrup 5 ML ORAL Q6H PRN for For Cough, #118 ML 0 Refills Prov: Cesar Elkins MD 05/31/19 Amoxicillin* (AMOXIL*) 500 Mg Capsule 500 MG ORAL THREE TIMES A DAY, #21 CAP Prov: Cesar Elkins MD 05/31/19 Ranitidine Hcl* (ZANTAC*) 150 Mg Tablet 150 MG ORAL TWICE A DAY, #30 TAB Prov: Cesar Elkins MD 05/31/19 Referrals: Silvino Calvillo MD (PCP) Cesar Elkins MD May 31, 2019 09:42
--- NOTE | 2019-05-31 09:50 | NUR ---
ED Nurse Note: Per Dr. Elkins, medications will be changed from IV to IM.
[2019-05-31] MEDS ORDERED: Morphine Sulfate 2mg/ml Inj(IV/IM USE ONLY) IM ONE (10:15)
[2019-05-31] MEDS ORDERED: RANITIDINE HCL150 MG ORAL (10:21)
[2019-05-31] MEDS ORDERED: AMOXICILLIN500 MG ORAL (10:21)
[2019-05-31] MEDS ORDERED: PROMETHAZINE-D118 ML ORAL (10:21)
[2019-05-31 10:28] VITALS: BP 128/82
--- NOTE | 2019-05-31 10:28 | NUR ---
ER DISCHARGE NOTE: Patient cleared for DC by Dr. Elkins. Patient AxO x 4, VSS. Patient verbalized understanding of DC instructions. Patient states her abdominal pain is much better. ID band removed. Patient walks with steady gait and has all belongings.
== END 2019-05-31 10:28 | disposition home or self-care (01) ==
LOC: EMR 08:39
DX: K29.00 Acute gastritis without bleeding (principal); J01.10 Acute frontal sinusitis, unspecified; K21.9 Gastro-esophageal reflux disease without esophagitis; I25.2 Old myocardial infarction; Z88.6 Allergy status to analgesic agent; Z91.011 Allergy to milk products; Z91.018 Allergy to other foods
CPT/HCPCS: 81003; 93005; 96372; 96374; 99284; J2270